=== PATIENT | male | born 1940 | race Caucasian/White ===

== ENCOUNTER → 2018-01-11 08:56 | Outpatient (CLI) | payer MEDICARE, OTHER, SELFPAY ==
[2018-01-11 10:15] LABS: Absolute Lymphocyte Count 1.61 X10^3/ul (0.83-4.51); Absolute Neutrophil Count 2.1 X10^3/uL (2.0-7.7); Basophil# 0.02 X10^3/uL; Basophil% 0.4 % (0-1); Color, Urine Yellow (Yellow); Eosinophil# 0.16 X10^3/uL; Eosinophils% 3.5 % (0-5); Glucose, Dipstick Normal (Normal); Hematocrit 40.1 % (40-54); Hemoglobin 14.1 g/dl (13.0-16.5); Ketone-Dipstick Negative (Negative); Leukocyte Esterase-Dipstick 100 /ul (Negative); Lymphocyte # 1.61 X10^3/ul (4.0); Mean Corp Hgb Conc 35.2 g/gl (32-36); Mean Corpuscular Volume 99.5 fL (80-94); Mean Platelet Vol. 10.2 fl (6.2-12.0); Monocyte# 0.68 X10^3/uL; Monocyte% 14.8 % (0-10); Neutrophil # 2.13 X10^3/uL (2.7-7.7); Neutrophil % 46.3 % (47-70); Nitrite-Dipstick Negative (Negative); Occult Blood-Urine Negative /ul (Negative); Platelet Count 198 K/mm3 (150-450); Protein-Dipstick Negative (Negative); RBC Distribution Width CV 13.3 % (11.6-14.6); RBC Distribution Width SD 48.1 fl (35.1-43.9); Red Blood Count 4.03 M/mm3 (4.6-6.2); Specific Gravity, Urine 1.015 (1.002-1.030); Urine Bilirubin Dipstick Negative (Negative); Urine Clarity Clear (Clear); Urine Urobilinogen Normal (Normal); White Blood Count 4.6 K/mm3 (4.4-11.0)
[2018-01-11 10:29] LABS: POSITIVE COUNT NO; POSITIVE DIFFERENTIAL NO; POSITIVE MORPHOLOGY NO
[2018-01-11 10:30] LABS: Hemoglobin A1c 5.7 % (4.2-6.3)
[2018-01-11 10:34] LABS: ALB/GLOB Ratio 0.9 RATIO (0.9-2.4); AST(SGOT) 25 U/L (15-37); Alanine Aminotransfer ALT/SGPT 39 U/L (16-61); Albumin, Serum 3.6 g/dL (3.2-5.0); Alkaline Phosphatase 109 U/L (45-117); Anion Gap 6 (5-15); BUN 23 mg/dL (7-18); BUN/Creat Ratio 20.7 RATIO (10-20); Calcium,Total 8.9 mg/dL (8.5-10.1); Chloride 108 mmol/L (98-107); Cholesterol 156 mg/dL (200); Creatinine, Serum 1.11 mg/dL (0.70-1.30); EST Glomerular Filtration Rate 69 mL/min (>60); Est Glom Filt Rate - Afr Amer 83 mL/min (>60); Globulin 3.9 g/dL (2.2-4.2); Glucose 101 mg/dL (74-106); High Density Lipoprotein 38 mg/dL; PSA,Total - Annual Screen 1.13 ng/mL (0.00-4.00); Potassium 3.9 mmol/L (3.5-5.1); Protein, Total 7.5 g/dL (6.4-8.2); Sodium Level 139 mmol/L (136-145); Triglycerides 206 mg/dL; Very Low Density Lipoprotein 41 mg/dL (5-40)
== END ==
DX: Z00.00 Encounter for general adult medical examination without abnormal findings (principal); Z12.5 Encounter for screening for malignant neoplasm of prostate; I10 Essential (primary) hypertension; E78.00 Pure hypercholesterolemia, unspecified; R73.02 Impaired glucose tolerance (oral)
CPT/HCPCS: 36415; 80053; 80061; 81002; 83036; 84153; 85025; G0103

== ENCOUNTER → 2018-04-15 07:01 | Outpatient (CLI) | payer MEDICARE, OTHER, SELFPAY ==
[2018-04-15 10:49] LABS: AST(SGOT) 25 U/L (15-37); Alanine Aminotransfer ALT/SGPT 41 U/L (16-61); Albumin, Serum 3.6 g/dL (3.2-5.0); Alkaline Phosphatase 103 U/L (45-117); Bilirubin, Direct 0.15 mg/dL (0.00-0.30); Cholesterol 157 mg/dL (200); Globulin 4.4 g/dL (2.2-4.2); High Density Lipoprotein 48 mg/dL; Triglycerides 105 mg/dL; Uric Acid 7.5 mg/dL (3.5-7.2); Very Low Density Lipoprotein 21 mg/dL (5-40)
[2018-04-15 11:01] LABS: Hemoglobin A1c 5.5 % (4.2-6.3)
== END ==
PROVIDERS: Visit Provider Family Medicine
DX: E78.00 Pure hypercholesterolemia, unspecified (principal); M10.9 Gout, unspecified; R73.02 Impaired glucose tolerance (oral)
CPT/HCPCS: 36415; 80061; 80076; 83036; 84550

== ENCOUNTER → 2018-06-20 07:30 | Outpatient (CLI) | payer MEDICARE, OTHER, SELFPAY ==
--- NOTE | 2018-06-20 07:33 | ECHOD_ITS ---
Reason For Study: dyspnea/SOB Procedure This was a 2D Doppler, Color Flow transthoracic echocardiogram. Exam performed in department. Left Ventricle Mild concentric left ventricular hypertrophy. The estimated ejection fraction is 65 %. Normal diastology for age. Right Ventricle Normal size and thickness. Normal systolic function. Atria The left atrium is moderately enlarged. Normal right atrium. Normal atrial septum. Mitral Valve The mitral valve is structurally normal. No prolapse or stenosis seen. Trivial mitral valve insufficiency. Tricuspid Valve Normal tricuspid valve. Trivial tricuspid valve insufficiency. Right ventricular systolic pressure estimated to be 37 mmHg. Aortic Valve Trisinus/trileaflet aortic valve. Mild (1+) aortic valve insufficiency. Pulmonic Valve Normal pulmonic valve. Trivial pulmonic valve insufficiency. Great Vessels Normal aortic root. Mild atherosclerosis of the aortic arch. Normal inferior vena cava. Inferior vena cava collapse with sniff. Pericardium/Pleural No pericardial effusion. MMode/2D Measurements & Calculations LVIDd: 5.3 cm IVSd: 1.4 cm Ao root diam: 3.1 cm LVIDs: 3.4 cm LVPWd: 1.4 cm LA dimension: 4.8 cm RVDd: 2.9 cm FS: 35.3 % LAV(MOD-bp): 97.9 ml LA A4 area: 27.1 cm2 RA A4 area: 13.9 cm2 LAV(MOD-bp) Indexed: 44.3 ml/m2 LAV(MOD-sp2): 97.5 ml LAV(MOD-sp4): 96.2 ml Doppler Measurements & Calculations MV E max luis: 103.5 cm/sec Lat Peak E' Luis: 9.2 cm/sec Med Peak E' Luis: 7.7 cm/sec MV A max luis: 89.6 cm/sec E/E' lat: 11.2 E/E' med: 13.5 MV E/A: 1.2 Ao V2 max: 134.8 cm/sec AI max luis: 438.7 cm/sec LV V1 max: 99.4 cm/sec Ao max P.3 mmHg AI max P.0 mmHg LV V1 max P.9 mmHg AI dec slope: 193.4 cm/sec2 AI P1/2t: 664.3 msec PA V2 max: 140.8 cm/sec PI end-d luis: 92.5 cm/sec TR max luis: 262.0 cm/sec TR max P.6 mmHg Interpretation Summary The estimated ejection fraction is 65 %. Normal diastology for age. The left atrium is moderately enlarged. Trivial mitral valve insufficiency. Trivial tricuspid valve insufficiency. Right ventricular systolic pressure estimated to be 37 mmHg. Mild (1+) aortic valve insufficiency. Comapred to echo report dated 08m no appreciable changes noted. Ordering Physician: Amari Forman Referring Physician: Anderson Izaguirre Performed By: Charlee Zelaya, LYUDMILA, RVT
== END ==
PROVIDERS: Visit Provider Internal Medicine Cardiovascular Disease
DX: I34.0 Nonrheumatic mitral (valve) insufficiency (principal); I10 Essential (primary) hypertension; E78.5 Hyperlipidemia, unspecified; R06.02 Shortness of breath
CPT/HCPCS: 93306

== ENCOUNTER → 2018-06-22 09:34 | Outpatient (CLI) | payer MEDICARE, OTHER, SELFPAY ==
--- NOTE | 2018-06-22 09:35 | STE_ITS ---
Reason For Study: DYSPNEA/ SOB Stress Results Protocol: Lance Protocol Maximum Predicted HR: 145 bpm Target HR: 123 bpm% Max imum Predicted HR: 88 % DurationHeart Rate Stage (mm:ss) (bpm) BPCom ment BASELINE 72 158/70 STAGE 1 3:00 93 142/62 STAGE 2 3:00 11 2 160/70 STAGE 3 2:00 12 7 / 5CC DEFINITY TOTAL GIVEN FOR TEST RECOVERY 96 142/70 Stress Duration: 8:00 mm:ss Maximum Stress HR: 127 bpm Baseline Echocardiogram Findings The estimated ejection fraction is 65 %. Stress Echo Wall motion Data Resting WMIntermediate WMStress WM Resting Wall Motion Wall Motion Stress No regional wall motion No regional wall motion abnormalities noted. abnormalities noted. EKG Data The baseline ECG demonstrates normal sinus rhythm with at rate of _ beats per minute. The patient exercised according to the regular Lance protocol for a total duration of 8:00. The maximum heart rate attained was 141 beats per minute. This was 97% of maximum predicted heart rate. The patient exercised into stage 3 of the Lance protocol. During stress, there were no ST or T wave changes noted to suggest ischemia. No clinical angina was noted. Interpretation Summary The estimated ejection fraction is 65 %. Normal, adequate, treadmill echocardiogram. Negative for ischemia by EKG and echocardiographic criteria. No anginal symptoms noted. No arrhythmias noted. Appropriate blood pressure response to exercise. Average exercise capacity for age. Test terminated due to the attainment of target heart rate and dyspnea. Final LVEF of 75%. Decreased sensitivity due to poor echo windows requiring Definity contrast enhancement. No complications. Ordering Physician: Amari Forman Referring Physician: Amari Forman Performed By: Shaina Bell RDCS
== END ==
PROVIDERS: Visit Provider Internal Medicine Cardiovascular Disease
DX: I34.0 Nonrheumatic mitral (valve) insufficiency (principal); I10 Essential (primary) hypertension; E78.5 Hyperlipidemia, unspecified; R06.00 Dyspnea, unspecified
CPT/HCPCS: 93017; 93350; Q9957; A4216; C8928

== ENCOUNTER → 2018-06-24 09:46 | Outpatient (CLI) | payer MEDICARE, OTHER, SELFPAY ==
--- NOTE | 2018-06-24 18:02 | LEAS ---
Arterial Study - Arterial Study Arterial Study: Bilateral lower extremity noninvasive arterial exam with exercise Right lower extremity PT and DP ankle-brachial indices at rest are 1.33 and 1.26 respectively. The Doppler waveforms are triphasic. The volume pulse recordings demonstrate normal amplification the calf and the ankle and digital waveforms are well maintained. With exercise the right MAHSA goes from resting 1.33 to media after exercise at 1.37 which is normal Left lower extremity The left PT and DP ankle-brachial index at rest are 1.33 and 1.39 respectively. The Doppler waveforms are both triphasic. Volume pulse recordings demonstrate normal amplification at the calf and the ankle and digital waveforms are well maintained. With exercise left MAHSA goes from resting 1.392 media after exercise at 1.37 which is normal. Impression Normal bilateral lower extremity noninvasive arterial exam with exercise. Vasquez Carter M.D., F.A.C.S.
== END ==
PROVIDERS: Visit Provider Internal Medicine Cardiovascular Disease
DX: I77.9 Disorder of arteries and arterioles, unspecified (principal); I73.9 Peripheral vascular disease, unspecified
CPT/HCPCS: 93924

== ENCOUNTER → 2019-01-26 07:42 | Outpatient (CLI) | payer MEDICARE, OTHER, SELFPAY ==
[2019-01-26 10:04] LABS: Color, Urine Yellow (Yellow); Glucose, Dipstick Normal (Normal); Ketone-Dipstick Negative (Negative); Leukocyte Esterase-Dipstick Negative /ul (Negative); Nitrite-Dipstick Negative (Negative); Occult Blood-Urine Negative /ul (Negative); Protein-Dipstick Negative (Negative); Specific Gravity, Urine 1.015 (1.002-1.030); Urine Bilirubin Dipstick Negative (Negative); Urine Clarity Clear (Clear); Urine Urobilinogen Normal (Normal)
[2019-01-26 10:06] LABS: Absolute Lymphocyte Count 1.22 X10^3/ul (0.83-4.51); Absolute Neutrophil Count 2.8 X10^3/uL (2.0-7.7); Basophil# 0.03 X10^3/uL; Basophil% 0.6 % (0-1); Hematocrit 40.6 % (40-54); Hemoglobin 14.4 g/dl (13.0-16.5); Lymphocyte # 1.22 X10^3/ul (4.0); Lymphocyte % 24.4 % (19-41); Mean Corp Hgb Conc 35.5 g/gl (32-36); Mean Corpuscular Hgb 35.9 pg (27.0-32.0); Mean Corpuscular Volume 101.2 fL (80-94); Mean Platelet Vol. 10.6 fl (6.2-12.0); Monocyte# 0.71 X10^3/uL; Monocyte% 14.2 % (0-10); Neutrophil # 2.82 X10^3/uL (2.7-7.7); Neutrophil % 56.6 % (47-70); Platelet Count 194 K/mm3 (150-450); RBC Distribution Width CV 13.6 % (11.6-14.6); RBC Distribution Width SD 50.5 fl (35.1-43.9); Red Blood Count 4.01 M/mm3 (4.6-6.2)
[2019-01-26 10:13] LABS: POSITIVE COUNT NO; POSITIVE DIFFERENTIAL NO; POSITIVE MORPHOLOGY NO
[2019-01-26 10:21] LABS: ALB/GLOB Ratio 0.9 RATIO (0.9-2.4); AST(SGOT) 23 U/L (15-37); Alanine Aminotransfer ALT/SGPT 38 U/L (16-61); Albumin, Serum 3.6 g/dL (3.2-5.0); Alkaline Phosphatase 106 U/L (45-117); Anion Gap 6 (5-15); BUN 19 mg/dL (7-18); BUN/Creat Ratio 17.8 RATIO (10-20); Calcium,Total 8.7 mg/dL (8.5-10.1); Chloride 107 mmol/L (98-107); Cholesterol 168 mg/dL (200); Creatinine, Serum 1.07 mg/dL (0.70-1.30); EST Glomerular Filtration Rate 71 mL/min (>60); Est Glom Filt Rate - Afr Amer 86 mL/min (>60); Globulin 3.9 g/dL (2.2-4.2); Glucose 97 mg/dL (74-106); High Density Lipoprotein 44 mg/dL; PSA,Total - Annual Screen 1.15 ng/mL (0.00-4.00); Potassium 3.7 mmol/L (3.5-5.1); Protein, Total 7.5 g/dL (6.4-8.2); Sodium Level 139 mmol/L (136-145); Triglycerides 182 mg/dL; Uric Acid 5.4 mg/dL (3.5-7.2); Very Low Density Lipoprotein 36 mg/dL (5-40)
[2019-01-26 10:25] LABS: Hemoglobin A1c 5.4 % (4.2-6.3)
== END ==
PROVIDERS: Referring Provider Family Medicine; Visit Provider Family Medicine
DX: Z00.00 Encounter for general adult medical examination without abnormal findings (principal); Z12.5 Encounter for screening for malignant neoplasm of prostate; M10.9 Gout, unspecified; R73.02 Impaired glucose tolerance (oral); E78.5 Hyperlipidemia, unspecified; I10 Essential (primary) hypertension
CPT/HCPCS: 36415; 80053; 80061; 81002; 83036; 84153; 84550; 85025; G0103

== ENCOUNTER → 2019-10-25 07:30 | Outpatient (CLI) | payer MEDICARE, OTHER, SELFPAY ==
[2019-09-11 10:33] VITALS: BMI 32.8
[2019-10-25 10:48] LABS: AST(SGOT) 22 U/L (15-37); Alanine Aminotransfer ALT/SGPT 35 U/L (16-61); Albumin, Serum 3.5 g/dL (3.2-5.0); Alkaline Phosphatase 95 U/L (45-117); Anion Gap 7 (5-15); BUN 21 mg/dL (7-18); BUN/Creat Ratio 21.7 RATIO (10-20); Calcium,Total 9.1 mg/dL (8.5-10.1); Chloride 107 mmol/L (98-107); Cholesterol 174 mg/dL (200); Creatinine, Serum 0.97 mg/dL (0.70-1.30); EST Glomerular Filtration Rate 80 mL/min (>60); Est Glom Filt Rate - Afr Amer 97 mL/min (>60); Globulin 3.6 g/dL (2.2-4.2); Glucose 98 mg/dL (74-106); High Density Lipoprotein 49 mg/dL; Potassium 3.7 mmol/L (3.5-5.1); Protein, Total 7.1 g/dL (6.4-8.2); Sodium Level 142 mmol/L (136-145); Triglycerides 192 mg/dL; Uric Acid 5.7 mg/dL (3.5-7.2); Very Low Density Lipoprotein 38 mg/dL (5-40)
== END ==
PROVIDERS: PCP Family Medicine; Referring Provider Family Medicine; Visit Provider Family Medicine
DX: Z00.00 Encounter for general adult medical examination without abnormal findings (principal); E78.5 Hyperlipidemia, unspecified; I10 Essential (primary) hypertension; M10.9 Gout, unspecified
CPT/HCPCS: 36415; 80053; 80061; 84550

== ENCOUNTER → 2020-02-29 07:12 | Outpatient (CLI) | payer MEDICARE, OTHER, SELFPAY ==
[2019-09-11 10:33] VITALS: BMI 32.8
[2020-02-29 09:46] LABS: Absolute Lymphocyte Count 1.76 X10^3/uL (0.83-4.51); Absolute Neutrophil Count 2.1 X10^3/uL (2.0-7.7); Basophil# 0.04 X10^3/uL; Basophil% 0.8 % (0-1); Eosinophil# 0.21 X10^3/uL; Eosinophils% 4.4 % (0-5); Hematocrit 41.8 % (40-54); Hemoglobin 14.2 g/dL (13.0-16.5); Lymphocyte # 1.76 X10^3/ul (4.0); Mean Corpuscular Hgb 34.5 pg (27.0-32.0); Mean Corpuscular Volume 101.5 fL (80-94); Mean Platelet Vol. 9.9 fl (6.2-12.0); Monocyte# 0.68 X10^3/uL; Monocyte% 14.3 % (0-10); NRBC Flagged by Analyzer 0 % (0-5); Neutrophil # 2.06 X10^3/uL (2.7-7.7); Neutrophil % 43.3 % (47-70); Platelet Count 199 K/mm3 (150-450); RBC Distribution Width CV 13.2 % (11.6-14.6); RBC Distribution Width SD 49.2 fl (35.1-43.9); Red Blood Count 4.12 M/mm3 (4.6-6.2); White Blood Count 4.8 K/mm3 (4.4-11.0)
[2020-02-29 10:02] LABS: AST(SGOT) 25 U/L (15-37); Alanine Aminotransfer ALT/SGPT 33 U/L (16-61); Albumin, Serum 3.8 g/dL (3.2-5.0); Alkaline Phosphatase 98 U/L (45-117); Anion Gap 6 (5-15); BUN 34 mg/dL (7-18); BUN/Creat Ratio 29.6 RATIO (10-20); Calcium,Total 9.1 mg/dL (8.5-10.1); Chloride 104 mmol/L (98-107); Cholesterol 158 mg/dL (200); Creatinine, Serum 1.15 mg/dL (0.70-1.30); EST Glomerular Filtration Rate 65 mL/min (>60); Est Glom Filt Rate - Afr Amer 79 mL/min (>60); Globulin 3.7 g/dL (2.2-4.2); Glucose 95 mg/dL (74-106); High Density Lipoprotein 42 mg/dL; PSA,Total - Annual Screen 1.15 ng/mL (0.00-4.00); Protein, Total 7.5 g/dL (6.4-8.2); Sodium Level 138 mmol/L (136-145); Triglycerides 170 mg/dL; Uric Acid 5.7 mg/dL (3.5-7.2); Very Low Density Lipoprotein 34 mg/dL (5-40)
[2020-02-29 10:14] LABS: Hemoglobin A1c 5.9 % (4.2-6.3)
== END ==
PROVIDERS: PCP Family Medicine; Referring Provider Family Medicine; Visit Provider Family Medicine
DX: Z00.00 Encounter for general adult medical examination without abnormal findings (principal); M10.9 Gout, unspecified; E78.5 Hyperlipidemia, unspecified; I10 Essential (primary) hypertension; R73.02 Impaired glucose tolerance (oral); Z12.5 Encounter for screening for malignant neoplasm of prostate
CPT/HCPCS: 36415; 80053; 80061; 83036; 84153; 84550; 85025; G0103

== ENCOUNTER → 2020-03-29 14:46 | Outpatient (CLI) | payer MEDICARE, OTHER, SELFPAY ==
[2020-03-28 10:36] VITALS: BMI 32.3
[2020-03-29 17:42] LABS: Vitamin B12 724 pg/mL (211-911)
[2020-04-01 16:08] LABS: Free Kappa Light Chains 26.1 mg/L (3.3-19.4); Free Lambda Light Chains 19.8 mg/L (5.7-26.3)
== END ==
PROVIDERS: PCP Family Medicine; Referring Provider Psychiatry & Neurology Neurology; Visit Provider Psychiatry & Neurology Neurology
DX: G62.9 Polyneuropathy, unspecified (principal); R60.0 Localized edema
CPT/HCPCS: 36415; 82607; 82746; 83883; 84443

== ENCOUNTER → 2020-04-04 13:36 | Outpatient (CLI) | payer MEDICARE, OTHER, SELFPAY ==
[2020-03-11 08:32] VITALS: BMI 32.3
[2020-03-28 10:36] VITALS: BMI 32.3
--- NOTE | 2020-04-04 13:37 | ART_ITS ---
Reason For Study: Claudication Procedure A bilateral lower extremity continuous wave Doppler with analog waveform analysis and ankle brachial indexes. Left Segmental Pressures Left brachial= 136mmHg. Left posterior tibial artery = 188mmHg. Left dorsalis pedis artery = 178mmHg. Left digit = 142 mmHg. The left dorsalis pedis waveforms are triphasic. The left posterior tibial artery waveforms are triphasic. Right Segmental Pressures Right brachial= 133mmHg. Right posterior tibial artery = 192mmHg. Right dorsalis pedis artery = 189mmHg. Right digit = 135 mmHg. The right dorsalis pedis waveforms are triphasic. The right posterior tibial artery waveforms are triphasic. Indices The right ankle brachial index by the dorsalis pedis is 1.39. The right ankle brachial index by the posterior tibial artery is 1.41. The right digital-brachial index is 0.99. The left ankle brachial index by the dorsalis pedis is 1.31. The left ankle brachial index by the posterior tibial artery is 1.38. The left digital-brachial index is 1.04. Interpretation Summary Resting ankle-brachial indices appear bilaterally normal. Bilateral PT and DP Doppler waveforms are triphasic and normal Ordering Physician: Amari Forman Referring Physician: Anderson Izaguirre Performed By: Unique Gray RVT
--- NOTE | 2020-04-04 13:37 | ECHOD_ITS ---
Reason For Study: Valve replacement eval Procedure This was a 2D Doppler, Color Flow transthoracic echocardiogram. Exam performed in department. Left Ventricle Normal size and thickness. The estimated ejection fraction is 65 %. Stage 1 diastolic dysfunction. No regional wall motion abnormalities noted. Right Ventricle Normal size and thickness. Normal systolic function. Atria The left atrium is mildly enlarged. Normal right atrium. Normal atrial septum. Mitral Valve The mitral valve is structurally normal. No prolapse or stenosis seen. Trivial mitral valve insufficiency. Tricuspid Valve Normal tricuspid valve. Trivial tricuspid valve insufficiency. Right ventricular systolic pressure estimated to be 34 mmHg. Aortic Valve Trisinus/trileaflet aortic valve. Mild diffuse aortic valve thickening. Trivial aortic valve insufficiency. Pulmonic Valve Normal pulmonic valve. Trivial pulmonic valve insufficiency. Great Vessels Normal aortic root. Normal arch. Normal inferior vena cava. Inferior vena cava collapse with sniff. Pericardium/Pleural No pericardial effusion. MMode/2D Measurements & Calculations LVIDd: 4.4 cm IVSd: 1.6 cm Ao root diam: 3.5 cm LVIDs: 2.4 cm LVPWd: 0.99 cm RVDd: 3.4 cm FS: 46.3 % LAV(MOD-bp): 58.7 ml LA A4 area: 21.1 cm2 LA dimension(2D): 4.5 cm LAV(MOD-bp) Indexed: 27.0 ml/m2 LAV(MOD-sp2): 54.9 ml LAV(MOD-sp4): 60.4 ml RA A4 area: 16.0 cm2 Doppler Measurements & Calculations MV E max luis: 88.0 cm/sec Lat Peak E' Luis: 9.8 cm/sec Med Peak E' Luis: 6.7 cm/sec MV A max luis: 96.4 cm/sec E/E' lat: 9.0 E/E' med: 13.1 MV E/A: 0.91 Ao V2 max: 164.4 cm/sec AI max luis: 454.1 cm/sec LV V1 max: 121.2 cm/sec Ao max P.8 mmHg AI max P.7 mmHg LV V1 max P.9 mmHg AI dec slope: 193.0 cm/sec2 AI P1/2t: 689.1 msec PA V2 max: 143.3 cm/sec TR max luis: 259.1 cm/sec TR max P.9 mmHg Interpretation Summary The estimated ejection fraction is 65 %. Stage 1 diastolic dysfunction. The left atrium is mildly enlarged. Trivial mitral valve insufficiency. Trivial tricuspid valve insufficiency. Right ventricular systolic pressure estimated to be 34 mmHg. Trivial aortic valve insufficiency. Compared to echo report dated 06/20/2018, LV function has remained the same, RV pressure has improved no appreciable changes noted. Ordering Physician: Amari Forman Referring Physician: Andrzej Izaguirre M.D. Performed By: Barbara Nguyen RDCS
== END ==
PROVIDERS: PCP Family Medicine; Referring Provider Internal Medicine Cardiovascular Disease; Visit Provider Internal Medicine Cardiovascular Disease
DX: I73.9 Peripheral vascular disease, unspecified (principal); R60.0 Localized edema
CPT/HCPCS: 93306; 93922

== ENCOUNTER → 2020-04-17 12:28 | Outpatient (CLI) | payer MEDICARE, OTHER, SELFPAY ==
[2020-03-11 08:32] VITALS: BMI 32.3
[2020-03-28 10:36] VITALS: BMI 32.3
--- NOTE | 2020-04-17 12:29 | STEWCON_ITS ---
Reason For Study: MVP Stress Results Protocol: Lance Protocol WITH DEFINITY Maximum Predicted HR: 143 bpm Target HR: 122 bpm % Maximum Predicted HR: 77 % DurationHeart Rate Stage (mm:ss) (bpm) BP Comment BASELINE 69 140/70 STAGE 1 3:00 85 138/62 STAGE 2 3:00 93 142/62 STAGE 3 3:00 110 144/605 CC DEFINITY RECOVERY 93 148/62 Stress Duration: 9:00 mm:ss Maximum Stress HR: 110 bpm Baseline Echocardiogram Findings The estimated ejection fraction is 65 %. Stress Echo Wall motion Data Resting WM Intermediate WM Stress WM Resting Wall Motion Wall Motion Stress No regional wall motion No regional wall motion abnormalities noted. abnormalities noted. EKG Data The baseline ECG displays normal sinus rhythm. The patient exercised according to the regular Lance protocol for a total duration of 9:00. The maximum heart rate attained was 144 beats per minute. This was 100% of maximum predicted heart rate. The patient exercised into stage 4 of the Lance protocol. During stress, there were no ST or T wave changes noted to suggest ischemia. No arrhythmias noted. No clinical angina was noted. Interpretation Summary The estimated ejection fraction is 65 %. Normal, adequate, treadmill echocardiogram. Negative for ischemia by EKG and echocardiographic criteria. No anginal symptoms noted. No arrhythmias noted. Appropriate blood pressure response to exercise. Average exercise capacity for age. Test terminated due to dyspnea and target heart rate achieved. Final LVEF is 75%. Decrease sensitivity due to poor echo windows requiring Definity agent. No complications. The study was technically difficult. Contrast injection was performed. Ordering Physician: Amari Forman MD Referring Physician: Amari Forman Performed By: Iris Mathew, RDCS, RVT
== END ==
PROVIDERS: PCP Family Medicine; Referring Provider Internal Medicine Cardiovascular Disease; Visit Provider Internal Medicine Cardiovascular Disease
DX: I34.0 Nonrheumatic mitral (valve) insufficiency (principal); I10 Essential (primary) hypertension; R60.0 Localized edema; I73.9 Peripheral vascular disease, unspecified; R06.09 Other forms of dyspnea
CPT/HCPCS: 93017; 93350; Q9957; A4216; C8928

== ENCOUNTER → 2020-06-03 10:09 | Outpatient (CLI) | payer MEDICARE, OTHER, SELFPAY ==
[2020-05-30 13:56] VITALS: BMI 32.3
--- NOTE | 2020-06-03 10:11 | RAD_ITS ---
STUDY: X-RAY - PELVIS AND BILATERAL HIPS REASON FOR EXAM: Male, 79 years old. Patient complains of lower leg pain at night, hip pain TECHNIQUE: AP view of the pelvis.? 2 views of the right hip, and 2 views of the left hip were obtained. COMPARISON: None. FINDINGS: There is a non-specific bowel gas pattern. There are multiple calcified phleboliths. Normal bilateral iliac wings, sacroiliac joints and visualized sacrum. Normal bilateral superior and inferior pubic rami. Normal pubic symphysis. Normal bilateral ischial tuberosities. Normal visualized right femoral head. There is osteoarthritic spur formation of the right acetabular rim. There is mild articular joint space narrowing of the right hip. Normal visualized left femoral head. There is osteoarthritic spur formation of the left acetabular rim. There is mild articular joint space narrowing of the left hip. RAD/Hips B/L min 2 views w/ Pelvis IMPRESSION: Mild degree of degenerative changes of both hip joints. Electronically Signed: Yomi Bosch, at 10:39 EDT , Service support ,
--- NOTE | 2020-06-03 10:15 | RAD_ITS ---
STUDY: X-RAY - LUMBAR SPINE REASON FOR EXAM: Male, 79 years old. Patient complains of lower leg pain at night, hip pain TECHNIQUE: 3 view(s) of the lumbar spine were obtained. COMPARISON: Comparison is made with prior examination dated January 01, 2016. FINDINGS: Normal lumbar lordosis. There is no substantial scoliosis. Grade 1 anterior listhesis of L5 on S1. There is multilevel endplate spondylosis of the lumbar vertebrae. There is multi-level degenerative disc disease with multi-level disc space narrowing. Facet joint osteoarthritis. There is atherosclerotic calcification of the abdominal aorta without a demonstrated aneurysm. RAD/Lumbar Spine 2 or 3 Views IMPRESSION: Degenerative changes of the spine, as detailed above. Electronically Signed: Yomi Bosch, at 10:40 EDT , Service support ,
[2020-06-05 14:08] LABS: Albumin 3.6 g/dL (2.9-4.4); Alpha-1-Globulins 0.2 g/dL (0.0-0.4); Alpha-2-Globulins 0.6 g/dL (0.4-1.0); Gamma Globulin 1.2 g/dL (0.4-1.8); Immunoglobulin A 182 mg/dL (61-437); Immunoglobulin G 1138 mg/dL (603-1613); Immunoglobulin M 151 mg/dL (15-143); PROEL- TOTAL PROTEIN 6.7 g/dL (6.0-8.5)
== END ==
PROVIDERS: PCP Family Medicine; Referring Provider Psychiatry & Neurology Neurology; Visit Provider Psychiatry & Neurology Neurology
DX: G62.9 Polyneuropathy, unspecified (principal); M25.559 Pain in unspecified hip; M54.5 Low back pain
CPT/HCPCS: 36415; 72100; 73521; 82784; 84165; 86334; 86335

== ENCOUNTER → 2020-06-17 13:24 | Outpatient (CLI) | payer MEDICARE, OTHER, SELFPAY ==
[2020-03-28 10:36] VITALS: BMI 32.3
[2020-05-30 13:56] VITALS: BMI 32.3
--- NOTE | 2020-06-17 16:48 | NEURO ---
NCS and/or EMG Patient Report Ordering Doctor: Anderson Diaz DATE OF SERVICE: 06/17/20 Indication: History of intermittent aching pain involving the pretibial region of both lower extremities. The patient notes that this is only present at night when he is laying down to go to sleep. Each morning he wakes with the pain, though this improves with activity over the course of an hour or so. He reports sciatica, but is unsure if this is related to his current problems. He denies any fixed weakness or sensory loss in the lower extremities. Evaluate for lumbosacral radiculopathy. Findings: Nerve conduction studies were performed of both lower extremities. The right common peroneal motor recording the extensor digitorum brevis demonstrated normal amplitude, latency and conduction velocity. The right tibial motor response recording the abductor hallucis demonstrated a normal amplitude, latency and conduction velocity. The right sural sensory response revealed a normal amplitude, peak latency and conduction velocity. The right superficial peroneal response revealed a normal amplitude, peak latency and conduction velocity. The left common peroneal motor study recording the extensor digitorum brevis demonstrated normal amplitude, latency and conduction velocity. The left tibial motor response recording the abductor hallucis demonstrated a normal amplitude, latency and conduction velocity. The left sural sensory response revealed a normal amplitude, peak latency and conduction velocity. The left superficial peroneal response revealed a normal amplitude, peak latency and conduction velocity. Needle EMG of the right lower extremity and paraspinal muscles was performed. No muscle, including the paraspinals, revealed any active denervation. Motor units in the right tibialis anterior, extensor houses longus, and tensor fascia radha muscles were large in amplitude, long duration and slightly polyphasic. The right vastus medialis and medial gastrocnemius revealed normal motor unit morphology, activation and recruitment patterns. Needle EMG of the left lower extremity and paraspinal muscles was performed. No active denervation was present in any muscle examined. Spontaneous activity could not be assessed in the left paraspinals due to incomplete relaxation. The left tibialis anterior, extensor houses longus revealed motor units which were large in amplitude, and long in duration. The left vastus medialis and medial gastrocnemius were normal in motor unit morphology, activation and recruitment patterns. Impression: This is an abnormal study. There is electrophysiologic evidence compatible with bilateral, chronic, L5 radiculopathies. There is no active denervation to suggest ongoing axonal loss. In addition, there is no electrophysiologic evidence of a superimposed large fiber peripheral polyneuropathy or peroneal neuropathy in either lower extremity. Ronnie Vogel D.O.
== END ==
PROVIDERS: PCP Family Medicine; Referring Provider Psychiatry & Neurology Neurology; Visit Provider Psychiatry & Neurology Neurology
DX: G62.9 Polyneuropathy, unspecified (principal); M79.662 Pain in left lower leg; M79.661 Pain in right lower leg
CPT/HCPCS: 95885; 95886; 95910

== ENCOUNTER → 2020-10-31 07:31 | Outpatient (CLI) | payer MEDICARE, OTHER, SELFPAY ==
[2020-09-23 13:04] VITALS: BMI 34.2
[2020-10-31 10:36] LABS: AST(SGOT) 22 U/L (15-37); Alanine Aminotransfer ALT/SGPT 45 U/L (16-61); Albumin, Serum 3.8 g/dL (3.2-5.0); Alkaline Phosphatase 107 U/L (45-117); Anion Gap 6 (5-15); BUN 24 mg/dL (7-18); BUN/Creat Ratio 22.9 RATIO (10-20); Calcium,Total 9.2 mg/dL (8.5-10.1); Chloride 108 mmol/L (98-107); Cholesterol 147 mg/dL (200); Creatinine, Serum 1.05 mg/dL (0.70-1.30); EST Glomerular Filtration Rate 73 mL/min (>60); Est Glom Filt Rate - Afr Amer 88 mL/min (>60); Globulin 3.8 g/dL (2.2-4.2); Glucose 104 mg/dL (74-106); High Density Lipoprotein 41 mg/dL; Protein, Total 7.6 g/dL (6.4-8.2); Sodium Level 142 mmol/L (136-145); Triglycerides 191 mg/dL; Very Low Density Lipoprotein 38 mg/dL (5-40)
[2020-10-31 10:58] LABS: Hemoglobin A1c 5.5 % (3.8-5.6)
== END ==
PROVIDERS: PCP Family Medicine; Referring Provider Family Medicine; Visit Provider Family Medicine
DX: E78.5 Hyperlipidemia, unspecified (principal); R73.02 Impaired glucose tolerance (oral); I10 Essential (primary) hypertension
CPT/HCPCS: 36415; 80053; 80061; 83036

== ENCOUNTER 2021-01-20 13:16 | Outpatient (RCR) | payer MEDICARE, OTHER, SELFPAY ==
[2020-12-10 13:29] VITALS: BMI 32.3
== END 2021-01-20 23:59 ==
LOC: IMMUN 13:16
PROVIDERS: PCP Family Medicine; Visit Provider Family Medicine
DX: Z23 Encounter for immunization (principal)
CPT/HCPCS: 0011A; 0012A

== ENCOUNTER → 2021-01-29 10:56 | Outpatient (CLI) | payer MEDICARE, OTHER, SELFPAY ==
[2020-12-10 13:29] VITALS: BMI 32.3
--- NOTE | 2021-01-29 10:57 | MRI_ITS ---
STUDY: MRI LUMBAR SPINE WITHOUT CONTRAST REASON FOR EXAM: Male, 80 years old. Lumbar Radiculopathy TECHNIQUE: Standardized fat and water weighted pulse sequences were obtained in the sagittal and axial planes. COMPARISON: X-ray 06/03/2020 FINDINGS: T12-L1: Normal endplates. Normal disc height, hydration and morphology. Normal bilateral facet joints. Normal central canal and bilateral lateral recesses. Normal bilateral intervertebral neural foramina. Normal lumbar lordosis. Mild levoscoliosis centered at L3. Normal conus medullaris that terminates at the L1/L2. L1-2: Normal endplates. Normal disc height, hydration and morphology. Normal bilateral facet joints. Normal central canal and bilateral lateral recesses. Normal bilateral intervertebral neural foramina. L2-3: Mild bilateral facet hypertrophy with fluid in the facet joints consistent with instability. Mild ligament flavum hypertrophy. Mild bilobed disc protrusion produces a moderate spinal stenosis with moderate bilateral lateral recess stenosis with abutment of the L3 nerve roots bilaterally and mild bilateral neural foraminal stenosis. L3-4: Moderate bilateral facet hypertrophy and ligament flavum hypertrophy. 2 mm retrolisthesis of L3 on L4 with a moderate bilobed disc protrusion produces moderate spinal stenosis with moderate bilateral lateral recess stenosis with abutment of the L for nerve roots bilaterally and moderate bilateral neural foraminal stenosis. L4-5: Moderate right facet hypertrophy and severe left facet hypertrophy with moderate ligament flavum hypertrophy. Moderate broad disc protrusion produces moderate spinal stenosis, mild right lateral recess stenosis, moderate left lateral recess stenosis with abutment of the left L5 nerve root and moderate by lateral neural foraminal stenosis with abutment of the exiting L4 nerve roots bilaterally. L5-S1: Severe bilateral facet hypertrophy. 5 mm of anterolisthesis of L5 on S1 with a mild broad disc protrusion produces moderate spinal stenosis with moderate bilateral lateral recess stenosis and moderate right neural foraminal stenosis and severe left neural foraminal stenosis with effacement the left L5 nerve root. Normal visualized sacral ala. [place]orses[place] kidney MRI/Spine Lumbar (Routine) IMPRESSION: Mild levoscoliosis with degenerative disc disease as described above. Electronically Signed: Chase Norman MD at 13:08 EST Tel , Service support ,
== END ==
PROVIDERS: PCP Family Medicine; Referring Provider Psychiatry & Neurology Neurology; Visit Provider Psychiatry & Neurology Neurology
DX: M54.16 Radiculopathy, lumbar region (principal)
CPT/HCPCS: 72148

== ENCOUNTER → 2021-03-28 07:01 | Outpatient (CLI) | payer MEDICARE, OTHER, SELFPAY ==
[2021-03-28 07:01] VITALS: BMI 32.3
[2021-03-28 10:03] LABS: Absolute Lymphocyte Count 1.55 X10^3/uL (0.83-4.51); Absolute Neutrophil Count 2.3 X10^3/uL (2.0-7.7); Basophil# 0.04 X10^3/uL; Basophil% 0.9 % (0-1); Eosinophil# 0.19 X10^3/uL; Eosinophils% 4.1 % (0-5); Hematocrit 40.9 % (40-54); Hemoglobin 13.4 g/dL (13.0-16.5); Lymphocyte # 1.55 X10^3/ul (0.83-4.51); Lymphocyte % 33.1 % (19-41); Mean Corp Hgb Conc 32.8 g/dL (32-36); Mean Corpuscular Hgb 34.3 pg (27.0-32.0); Mean Corpuscular Volume 104.6 fL (80-94); Mean Platelet Vol. 10.7 fl (6.2-12.0); Monocyte# 0.57 X10^3/uL; Monocyte% 12.2 % (0-10); NRBC Flagged by Analyzer 0 % (0-5); Neutrophil # 2.32 X10^3/uL (2.7-7.7); Neutrophil % 49.5 % (47-70); Platelet Count 186 K/mm3 (150-450); RBC Distribution Width CV 13.2 % (11.6-14.6); RBC Distribution Width SD 51.1 fl (35.1-43.9); Red Blood Count 3.91 M/mm3 (4.6-6.2); White Blood Count 4.7 K/mm3 (4.4-11.0)
[2021-03-28 10:49] LABS: Hemoglobin A1c 5.5 % (3.8-5.6)
[2021-03-28 11:09] LABS: AST(SGOT) 20 U/L (15-37); Alanine Aminotransfer ALT/SGPT 36 U/L (16-61); Albumin, Serum 3.7 g/dL (3.2-5.0); Alkaline Phosphatase 103 U/L (45-117); Anion Gap 4 (5-15); BUN 34 mg/dL (7-18); BUN/Creat Ratio 25.6 RATIO (10-20); Calcium,Total 9.1 mg/dL (8.5-10.1); Chloride 109 mmol/L (98-107); Cholesterol 156 mg/dL (200); Creatinine, Serum 1.33 mg/dL (0.70-1.30); EST Glomerular Filtration Rate 55 mL/min (>60); Est Glom Filt Rate - Afr Amer 67 mL/min (>60); Globulin 3.8 g/dL (2.2-4.2); Glucose 94 mg/dL (74-106); High Density Lipoprotein 44 mg/dL; PSA,Total - Annual Screen 1.79 ng/mL (0.00-4.00); Potassium 4.5 mmol/L (3.5-5.1); Protein, Total 7.5 g/dL (6.4-8.2); Sodium Level 140 mmol/L (136-145); Triglycerides 128 mg/dL; Very Low Density Lipoprotein 26 mg/dL (5-40)
== END ==
PROVIDERS: PCP Family Medicine; Referring Provider Family Medicine; Visit Provider Family Medicine
DX: Z00.00 Encounter for general adult medical examination without abnormal findings (principal); R73.02 Impaired glucose tolerance (oral); E78.5 Hyperlipidemia, unspecified; I10 Essential (primary) hypertension; Z12.5 Encounter for screening for malignant neoplasm of prostate
CPT/HCPCS: 36415; 80053; 80061; 83036; 84153; 85025; G0103

== ENCOUNTER → 2021-03-31 14:05 | Outpatient (CLI) | payer MEDICARE, OTHER, SELFPAY ==
[2021-03-28 07:01] VITALS: BMI 32.3
[2021-03-31 17:24] LABS: Vitamin B12 > 2000 pg/mL (211-911)
== END ==
PROVIDERS: PCP Family Medicine; Referring Provider Family Medicine; Visit Provider Family Medicine
DX: D75.89 Other specified diseases of blood and blood-forming organs (principal)
CPT/HCPCS: 36415; 82607

== ENCOUNTER → 2021-06-10 10:25 | Outpatient (CLI) | payer MEDICARE, OTHER, SELFPAY ==
[2021-06-10 09:03] VITALS: BMI 34.9
[2021-06-10 12:51] LABS: Anion Gap 5 (5-15); BUN 32 mg/dL (7-18); BUN/Creat Ratio 27.6 RATIO (10-20); Calcium,Total 9.3 mg/dL (8.5-10.1); Chloride 106 mmol/L (98-107); Creatinine, Serum 1.16 mg/dL (0.70-1.30); EST Glomerular Filtration Rate 65 mL/min (>60); Est Glom Filt Rate - Afr Amer 78 mL/min (>60); Glucose 95 mg/dL (74-106); Potassium 4.9 mmol/L (3.5-5.1); Sodium Level 140 mmol/L (136-145)
== END ==
PROVIDERS: PCP Internal Medicine; Referring Provider Internal Medicine; Visit Provider Internal Medicine
DX: R79.89 Other specified abnormal findings of blood chemistry (principal)
CPT/HCPCS: 36415; 80048

== ENCOUNTER 2021-07-14 10:17 | Emergency (ER) | payer MEDICARE, OTHER, SELFPAY ==
[2021-07-14 10:18] VITALS: BP 154/82; PULSE 66; RESP 16; TEMP 36; O2SAT 96; BMI 32.5
--- NOTE | 2021-07-14 11:12 | EX.ED.DYSGE1 ---
HPI History of Present Illness Chief Complaint: Cold Sx Narrative Narrative: Patient presents with a few day history of cough and congestion. He has no shortness of breath. He has no fever or chills. No neck pain or neck stiffness. No rash. No loss of sense of smell or taste. His was diagnosed with Covid yesterday. He is otherwise asymptomatic. [facility] Medical History Acute ethmoidal sinusitis, unspecified Hyperlipidemia Hypertension Nonrheumatic mitral (valve) insufficiency Nonrheumatic tricuspid (valve) insufficiency Home Medications cyanocobalamin (vitamin B-12) 1,000 mcg tablet 1,000 mcg PO QDAY 06/08/18 [History Last Taken Unknown] multivitamin 1 tab PO QDAY 06/08/18 [History Last Taken Unknown] omeprazole 20 mg capsule,delayed release 20 mg PO QDAY 06/08/18 [History Last Taken Unknown] simvastatin 40 mg tablet 40 mg PO QPM 06/08/18 [History Last Taken Unknown] valsartan 320 mg-hydrochlorothiazide 25 mg tablet 1 tab PO QDAY 06/08/18 [History Last Taken Unknown] allopurinol 100 mg tablet 200 mg PO QDAY tab 06/13/18 [History Last Taken Unknown] aspirin 81 mg tablet,delayed release 81 mg PO DAILY tab 03/09/19 [History Last Taken Unknown] omega-3 acid ethyl esters 1 gram capsule 2 cap PO BID cap 09/11/19 [History Last Taken Unknown] vit C 250 mg-vit E 90 mg-zinc 40 mg-copper 1 [id number] capsule 2 tab PO DAILY cap 09/23/20 [History Last Taken Unknown] amitriptyline 25 mg tablet 50 mg PO QHS #60 tab 07/01/21 [Rx Last Taken Unknown] diclofenac sodium 75 mg tablet,delayed release 75 mg PO BID PRN tab 07/01/21 [History Last Taken Unknown] Allergy/AdvReac Type Severity Reaction Status Date / Time No Known Allergies Allergy Verified 07/14/21 10:18 Family History Father Dementia Mother Atrial fibrillation Surgical History History of cystoscopy (~02/2008) History of tonsillectomy and adenoidectomy Social History Smoking Status: Never smoker alcohol intake: current alcohol intake frequency: a few times a week Alcohol type: wine substance use type: does not use caffeine: Yes Type: coffee Number of servings: 3 ROS ROS ED ROS Narrative Past medical history: Reviewed, hypertension, hypercholesterolemia. He is not a diabetic. Medications: Reviewed Social history: Noncontributory Vaccination: He is vaccinated for Covid. Review of systems: All systems negative except as indicated General: No fever Eyes: No visual changes ENT: Some upper airway congestion. Neck: No neck pain Cardiovascular: No chest pain Respiratory: No shortness of breath or cough Gastrointestinal: No abdominal pain, nausea vomiting or diarrhea Genitourinary: No dysuria Musculoskeletal: Denies myalgias no difficulty with ambulation Skin: No rash Neurological: No memory loss, confusion or any focal weakness Psych: No recent behavioral changes Hematologic: No easy bleeding or easy bruising EXAM Physical Exam Narrative Exam Narrative: Physical exam General: Well nourished, Well developed, No Acute Distress Head: Normocephalic, Atraumatic Eyes: Conjunctiva not pale ENT: Moist mucous membranes. I cannot appreciate any upper airway congestion. Neck: Supple, Nontender, No lymphadenopathy Cardiovascular: Regular rate, Regular rhythm Respiratory: No distress, CTA bilaterally Abdomen: Soft, Nontender, Nondistended Back: Nontender, Normal Inspection. Negative for: CVA tenderness Extremities: Nontender, No edema Skin: Normal color, No rash Neurological: Alert, Normal Strength, Normal Sensation Psychological: Normal affect Const Vital Signs: 07/14/21 10:18 Temperature 96.8 F L Temperature Source Temporal Pulse Rate 66 Respiratory Rate 16 Blood Pressure 154/82 H Blood Pressure Mean 106 Pulse Ox 96 Oxygen Delivery Method Room Air MDM MDM MDM Narrative Medical decision making narrative: Patient appears well, he is vaccinated but there is a chance he has Covid I told him to quarantine otherwise we will check a test and call if positive. Discharge Plan Triage Chief Complaint: Cold Sx ED Provider: Jerome Latham Dx/Rx/DC Orders Clinical Impression: Upper respiratory infection Instructions: ED URI, Viral, No Abx (Adult) Prescriptions: No Action cyanocobalamin (vitamin B-12) [Vitamin B-12] 1,000 mcg tablet 1,000 mcg PO QDAY RF: 0 valsartan-hydrochlorothiazide [Diovan HCT] 320-25 mg tablet 1 tab PO QDAY RF: 0 multivitamin tablet 1 tab PO QDAY RF: 0 simvastatin 40 mg tablet 40 mg PO QPM RF: 0 omeprazole 20 mg capsule,delayed release(DR/EC) 20 mg PO QDAY RF: 0 allopurinol 100 mg tablet 200 mg PO QDAY RF: 0 aspirin [Adult Aspirin Regimen] 81 mg tablet,delayed release (DR/EC) 81 mg PO DAILY RF: 0 omega-3 acid ethyl esters [Lovaza] 1 gram capsule 2 cap PO BID RF: 0 PreserVision AREDS-2 [id number] ej-ratz-in-mg capsule 2 tab PO DAILY RF: 0 diclofenac sodium 75 mg tablet,delayed release (DR/EC) 75 mg PO BID PRN (Reason: pain) RF: 0 amitriptyline 25 mg tablet 50 mg PO QHS Qty: 60 RF: 3 Primary Care Provider: Melissa Hussein Referrals: Melissa Hussein MD [Primary Care Provider] - 2 Days Activity Restrictions/Additional Instructions: You have been exposed to COVID-19, quarantine yourself until the test is back. If you have shortness of breath or worsening symptoms return to the ED. Disposition Disposition: Home, Self Care
== END 2021-07-14 11:40 | disposition home or self-care (01) ==
LOC: ED 11:24
PROVIDERS: Emergency Provider Emergency Medicine; PCP Internal Medicine
DX: J06.9 Acute upper respiratory infection, unspecified (principal); Z20.822 Contact with and (suspected) exposure to COVID-19; Z79.82 Long term (current) use of aspirin
CPT/HCPCS: 87426; 99283

== ENCOUNTER → 2021-09-30 07:40 | Outpatient (CLI) | payer MEDICARE, OTHER, SELFPAY ==
[2021-09-30 10:46] LABS: Hemoglobin A1c 5.6 % (3.8-5.6)
[2021-09-30 10:52] LABS: ALB/GLOB Ratio 0.9 RATIO (0.9-2.4); AST(SGOT) 25 U/L (15-37); Alanine Aminotransfer ALT/SGPT 40 U/L (16-61); Albumin, Serum 3.4 g/dL (3.2-5.0); Alkaline Phosphatase 108 U/L (45-117); Anion Gap 6 (5-15); BUN 35 mg/dL (7-18); Calcium,Total 8.9 mg/dL (8.5-10.1); Chloride 110 mmol/L (98-107); Cholesterol 142 mg/dL (200); EST Glomerular Filtration Rate 52 mL/min (>60); Est Glom Filt Rate - Afr Amer 63 mL/min (>60); Globulin 3.7 g/dL (2.2-4.2); Glucose 110 mg/dL (74-106); High Density Lipoprotein 39 mg/dL; Potassium 4.2 mmol/L (3.5-5.1); Protein, Total 7.1 g/dL (6.4-8.2); Sodium Level 140 mmol/L (136-145); Triglycerides 144 mg/dL; Uric Acid 5.9 mg/dL (3.5-7.2); Very Low Density Lipoprotein 29 mg/dL (5-40)
== END ==
PROVIDERS: PCP Family Medicine; Referring Provider Family Medicine; Visit Provider Family Medicine
DX: R73.02 Impaired glucose tolerance (oral) (principal); E78.5 Hyperlipidemia, unspecified; I10 Essential (primary) hypertension; M10.9 Gout, unspecified
CPT/HCPCS: 36415; 80053; 80061; 83036; 84550

== ENCOUNTER → 2022-04-03 | Outpatient (CLI) | payer MEDICARE, OTHER, SELFPAY ==
[2022-04-03 10:16] LABS: Absolute Lymphocyte Count 1.67 X10^3/uL (0.83-4.51); Basophil# 0.04 X10^3/uL; Basophil% 0.7 % (0-1); Eosinophil# 0.22 X10^3/uL; Eosinophils% 3.9 % (0-5); Hematocrit 38.4 % (40-54); Hemoglobin 13.3 g/dL (13.0-16.5); Lymphocyte # 1.67 X10^3/ul (0.83-4.51); Lymphocyte % 29.4 % (19-41); Mean Corp Hgb Conc 34.6 g/dL (32-36); Mean Corpuscular Hgb 36.2 pg (27.0-32.0); Mean Corpuscular Volume 104.6 fL (80-94); Mean Platelet Vol. 10.8 fl (6.2-12.0); Monocyte# 0.74 X10^3/uL; NRBC Flagged by Analyzer 0 % (0-5); Neutrophil % 52.8 % (47-70); Platelet Count 205 K/mm3 (150-450); RBC Distribution Width CV 13.4 % (11.6-14.6); RBC Distribution Width SD 51.4 fl (35.1-43.9); Red Blood Count 3.67 M/mm3 (4.6-6.2); White Blood Count 5.7 K/mm3 (4.4-11.0)
[2022-04-03 10:35] LABS: AST(SGOT) 22 U/L (15-37); Alanine Aminotransfer ALT/SGPT 36 U/L (16-61); Albumin, Serum 3.7 g/dL (3.2-5.0); Alkaline Phosphatase 93 U/L (45-117); Anion Gap 5 (5-15); BUN 47 mg/dL (7-18); BUN/Creat Ratio 28.8 RATIO (10-20); Calcium,Total 9.4 mg/dL (8.5-10.1); Chloride 110 mmol/L (98-107); Cholesterol 133 mg/dL (200); Creatinine, Serum 1.63 mg/dL (0.70-1.30); EST Glomerular Filtration Rate 44 mL/min (>60); Est Glom Filt Rate - Afr Amer 53 mL/min (>60); Globulin 3.8 g/dL (2.2-4.2); Glucose 99 mg/dL (74-106); High Density Lipoprotein 39 mg/dL; PSA,Total - Annual Screen 1.95 ng/mL (0.00-4.00); Potassium 4.2 mmol/L (3.5-5.1); Protein, Total 7.5 g/dL (6.4-8.2); Sodium Level 140 mmol/L (136-145); Triglycerides 142 mg/dL; Very Low Density Lipoprotein 28 mg/dL (5-40)
[2022-04-03 10:57] LABS: Hemoglobin A1c 5.7 % (3.8-5.6)
== END | disposition home or self-care (01) ==
LOC: MTLAB 07:07
PROVIDERS: PCP Family Medicine; Referring Provider Family Medicine; Visit Provider Family Medicine
DX: Z00.00 Encounter for general adult medical examination without abnormal findings (principal); R73.02 Impaired glucose tolerance (oral); E78.5 Hyperlipidemia, unspecified; I10 Essential (primary) hypertension; D75.89 Other specified diseases of blood and blood-forming organs; Z12.5 Encounter for screening for malignant neoplasm of prostate
CPT/HCPCS: 36415; 80053; 80061; 83036; 84153; 85025; G0103

== ENCOUNTER 2022-05-04 12:27 | Emergency (ER) | payer MEDICARE, OTHER, SELFPAY ==
[2022-05-04 12:29] VITALS: BP 143/67; PULSE 86; RESP 16; TEMP 36.4; O2SAT 98; BMI 30.2
[2022-05-04 12:39] VITALS: BP 133/72; PULSE 73; RESP 12
[2022-05-04 12:44] VITALS: BP 105/64; BP 118/62; BP 124/76; PULSE 70; PULSE 73; PULSE 76
--- NOTE | 2022-05-04 13:04 | EDS_ITS ---
HPI History of Present Illness Chief Complaint: General Illness Detail of Chief Complaint: Dehydration Informant: patient Onset/Context/Timing Onset: Days Narrative Narrative: Patient presents due to concerns for dehydration. [place] was [place] when he developed a GI bug. He had significant vomiting with very mild diarrhea. For the next 4 days he did not really eat or drink as every time he would it would cause vomiting. He eventually flew home early from his trip. He states has been eating a bland diet. This morning his blood pressure was lower than normal and he felt slightly lightheaded when he first stood up. [facility] Medical History Hyperlipidemia Hypertension Nonrheumatic mitral (valve) insufficiency Nonrheumatic tricuspid (valve) insufficiency Home Medications cyanocobalamin (vitamin B-12) 1,000 mcg tablet 1,000 mcg PO QDAY 06/08/18 [History Last Taken Unknown] multivitamin 1 tab PO QDAY 06/08/18 [History Last Taken Unknown] omeprazole 20 mg capsule,delayed release 20 mg PO QDAY 06/08/18 [History Last Taken Unknown] simvastatin 40 mg tablet 40 mg PO QPM 06/08/18 [History Last Taken Unknown] valsartan 320 mg-hydrochlorothiazide 25 mg tablet 1 tab PO QDAY 06/08/18 [History Last Taken Unknown] allopurinol 100 mg tablet 200 mg PO QDAY tab 06/13/18 [History Last Taken Unknown] aspirin 81 mg tablet,delayed release 81 mg PO DAILY tab 03/09/19 [History Last Taken Unknown] omega-3 acid ethyl esters 1 gram capsule 2 cap PO BID cap 09/11/19 [History Last Taken Unknown] vit C 250 mg-vit E 90 mg-zinc 40 mg-copper 1 ll-khiafh-csabzs capsule 2 tab PO DAILY cap 09/23/20 [History Last Taken Unknown] amitriptyline 25 mg tablet 25 mg PO QHS tab 09/01/21 [History Last Taken Unknown] sildenafil (pulm.hypertension) 20 mg tablet 20 mg PO Q24H PRN tab 09/29/21 [History Last Taken Unknown] diclofenac sodium 75 mg tablet,delayed release 75 mg PO BID PRN #180 tab 12/10/21 [Rx Last Taken Unknown] Allergy/AdvReac Type Severity Reaction Status Date / Time No Known Allergies Allergy Verified 05/04/22 12:42 Family History Father Dementia Mother Atrial fibrillation Surgical History History of cystoscopy (~02/2008) History of tonsillectomy and adenoidectomy Social History Smoking Status: Never smoker alcohol intake: current alcohol intake frequency: a few times a week Alcohol type: wine substance use type: does not use caffeine: Yes Type: coffee Number of servings: 3 ROS ROS ED Constitutional Constitutional ED: Denies chills or fever(s) Eyes Eyes: Denies change in vision ENT ENT ED: Denies sore throat Cardiovascular Cardiovascular: Denies chest pain Respiratory/Chest Respiratory/Chest: Denies cough or dyspnea Gastrointestinal Gastrointestinal: Reports diarrhea, nausea and vomiting; Denies abdominal pain Genitourinary Genitourinary ED: Denies dysuria Musculoskeletal Musculoskeletal: Denies back pain Integumentary Denies rash Neurologic Neurologic: Reports weakness; Denies headache(s) Psychiatric Psychiatric: Denies anxiety or depression Allergic/Immunologic Allergic/Immunologic ED: Denies urticaria EXAM Physical Exam Const Vital Signs: 05/04/22 12:29 05/04/22 12:39 05/04/22 12:44 Temperature 97.6 F L Temperature Source Temporal Pulse Rate 86 73 Pulse Rate [Lying] 70 Pulse Rate [Sitting (for 1 minute prior to obtaining)] 73 Pulse Rate [Standing (for 1 minute prior to obtaining)] 76 Respiratory Rate 16 12 Respiratory Effort Normal Respiratory Pattern Normal Blood Pressure 143/67 H 133/72 H Blood Pressure [Lying] 124/76 H Blood Pressure [Sitting (for 1 minute prior to obtaining)] 118/62 Blood Pressure [Standing (for 1 minute prior to obtaining)] 105/64 Blood Pressure Mean 92 92 Blood Pressure Mean [Lying] 92 Blood Pressure Mean [Sitting (for 1 minute prior to obtaining)] 80 Blood Pressure Mean [Standing (for 1 minute prior to obtaining)] 77 Pulse Ox 98 Oxygen Delivery Method Room Air Positive well nourished and well developed General Appearance ED: well developed HEENT Negative for trauma Eyes PERRL and EOMs intact bilaterally Neck supple Chest Wall inspection of chest normal and palpation of chest normal Resp normal respiratory effort and clear to auscultation bilaterally Cardio regular rate and regular rhythm GI normal to inspection, nondistended, normoactive bowel sounds and non-tender Palpation: soft Extremity normal to inspection Neuro oriented x3 and no sensory deficits noted Sensorium / Orientation: alert Motor Exam: strength 5/5 throughout Psych mental status grossly normal Skin no rashes or lesions noted MDM MDM MDM Narrative Medical decision making narrative: Liter IV fluids. Lab work and urinalysis obtained. Lab Data Labs: Laboratory Results - last 24 hr 05/04/22 05/04/22 05/04/22 13:15 13:15 13:15 WBC 8.5 RBC 3.41 L Hgb 12.0 L Hct 34.4 L MCV 100.9 H MCH 35.2 H MCHC 34.9 RDW Std Deviation 50.4 H RDW Coeff of Lorin 13.6 Plt Count 251 MPV 10.6 Immature Gran % (Auto) 2.800 H Neut % (Auto) 61.4 Lymph % (Auto) 19.6 [place] % (Auto) 13.2 H Eos % (Auto) 2.2 Baso % (Auto) 0.8 Absolute Neuts (auto) 5.2 Absolute Lymphs (auto) 1.67 Nucleated RBC % 0 Sodium Cancelled Potassium Cancelled Chloride Cancelled Carbon Dioxide Cancelled Anion Gap Cancelled BUN Cancelled Creatinine Cancelled Estim Creat Clear Calc Cancelled Est GFR (MDRD) Af Amer Cancelled Est GFR (MDRD) Non-Af Cancelled BUN/Creatinine Ratio Cancelled Glucose Cancelled Calcium Cancelled Total Bilirubin Cancelled Direct Bilirubin Cancelled AST Cancelled ALT Cancelled Alkaline Phosphatase Cancelled Total Protein Cancelled Albumin Cancelled Globulin Cancelled Urine Color Yellow Urine Clarity Clear Urine pH 6.0 Ur Specific [place] 1.010 Urine Protein Negative Urine Glucose (UA) Normal Urine Ketones Negative Urine Occult Blood Negative Urine Nitrite Negative Urine Bilirubin Negative Urine Urobilinogen Normal Ur Leukocyte Esterase Negative Urine RBC 0 SEEN Urine WBC 0 SEEN Ur Squamous Epith Cells 0-5 SEEN Urine Bacteria 0 SEEN Urine Mucus 0 SEEN 05/04/22 13:30 WBC RBC Hgb Hct MCV MCH MCHC RDW Std Deviation RDW Coeff of Lorin Plt Count MPV Immature Gran % (Auto) Neut % (Auto) Lymph % (Auto) [place] % (Auto) Eos % (Auto) Baso % (Auto) Absolute Neuts (auto) Absolute Lymphs (auto) Nucleated RBC % Sodium 139 Potassium 3.9 Chloride 107 Carbon Dioxide 25.0 Anion Gap 7 BUN 38 H Creatinine 1.15 Estim Creat Clear Calc 52.09 Est GFR (MDRD) Af Amer 79 Est GFR (MDRD) Non-Af 65 BUN/Creatinine Ratio 33.0 H Glucose 117 H Calcium 9.3 Total Bilirubin 0.40 Direct Bilirubin 0.10 AST 29 ALT 42 Alkaline Phosphatase 146 H Total Protein 7.1 Albumin 2.9 L Globulin 4.2 Urine Color Urine Clarity Urine pH Ur Specific [place] Urine Protein Urine Glucose (UA) Urine Ketones Urine Occult Blood Urine Nitrite Urine Bilirubin Urine Urobilinogen Ur Leukocyte Esterase Urine RBC Urine WBC Ur Squamous Epith Cells Urine Bacteria Urine Mucus Treatment and Re-Evaluation Narrative: CBC largely unremarkable. Mild anemia with a hemoglobin of 12. Chemistry studies reveal a BUN of 38 which appears to be consistent with his prior values. Creatinine is 1.15. Potassium is normal. Albumin is noted to be low at 2.9. Urinalysis reveals no infection and no ketones. On repeat evaluation patient resting comfortably. Test results discussed with patient and at bedside. I did encourage trying to increase protein intake over the next several days. He will continue supportive care and advance his diet as tolerated. Return instructions given. Discharge Plan Triage Chief Complaint: General Illness ED Provider: Yuliya Cano Dx/Rx/DC Orders Clinical Impression: Vomiting, Dehydration Instructions: ED Dehydration (Adult), ED Vomiting and Diarrhea ... Prescriptions: No Action cyanocobalamin (vitamin B-12) [Vitamin B-12] 1,000 mcg tablet 1,000 mcg PO QDAY RF: 0 valsartan-hydrochlorothiazide [Diovan HCT] 320-25 mg tablet 1 tab PO QDAY RF: 0 multivitamin tablet 1 tab PO QDAY RF: 0 simvastatin 40 mg tablet 40 mg PO QPM RF: 0 omeprazole 20 mg capsule,delayed release(DR/EC) 20 mg PO QDAY RF: 0 allopurinol 100 mg tablet 200 mg PO QDAY RF: 0 aspirin [Adult Aspirin Regimen] 81 mg tablet,delayed release (DR/EC) 81 mg PO DAILY RF: 0 omega-3 acid ethyl esters [Lovaza] 1 gram capsule 2 cap PO BID RF: 0 PreserVision AREDS-2 [id number] nc-vtii-ym-mg capsule 2 tab PO DAILY RF: 0 amitriptyline 25 mg tablet 25 mg PO QHS RF: 0 sildenafil (pulm.hypertension) 20 mg tablet 20 mg PO Q24H PRN (Reason: sexual activity) RF: 0 diclofenac sodium 75 mg tablet,delayed release (DR/EC) 75 mg PO BID PRN (Reason: pain) Qty: 180 RF: 1 Primary Care Provider: Anderson Izaguirre Referrals: Anderson Izaguirre MD [Primary Care Provider] - 3-5 Days if not improving Disposition Disposition: Home, Self Care
[2022-05-04] MEDS: 0.9% Normal Saline 1,000 ML 1000 ML IV (13:16)
[2022-05-04 13:21] LABS: Bacteria 0 SEEN /hpf (None Seen); Mucous, Urine 0 SEEN /hpf (<or=2+); Red Blood Cells-Urine 0 SEEN /hpf (0-5); White Blood Cells 0 SEEN /hpf (0-5)
[2022-05-04 13:24] LABS: Color, Urine Yellow (Yellow); Glucose, Dipstick Normal (Normal); Ketone-Dipstick Negative (Negative); Leukocyte Esterase-Dipstick Negative /ul (Negative); Nitrite-Dipstick Negative (Negative); Occult Blood-Urine Negative /ul (Negative); Protein-Dipstick Negative (Negative); Urine Bilirubin Dipstick Negative (Negative); Urine Clarity Clear (Clear); Urine Urobilinogen Normal (Normal)
[2022-05-04 13:46] LABS: Absolute Lymphocyte Count 1.67 X10^3/uL (0.83-4.51); Absolute Neutrophil Count 5.2 X10^3/uL (2.0-7.7); Basophil# 0.07 X10^3/uL; Basophil% 0.8 % (0-1); Eosinophil# 0.19 X10^3/uL; Eosinophils% 2.2 % (0-5); Hematocrit 34.4 % (40-54); Lymphocyte # 1.67 X10^3/ul (0.83-4.51); Lymphocyte % 19.6 % (19-41); Mean Corp Hgb Conc 34.9 g/dL (32-36); Mean Corpuscular Hgb 35.2 pg (27.0-32.0); Mean Corpuscular Volume 100.9 fL (80-94); Mean Platelet Vol. 10.6 fl (6.2-12.0); Monocyte# 1.13 X10^3/uL; Monocyte% 13.2 % (0-10); NRBC Flagged by Analyzer 0 % (0-5); Neutrophil # 5.24 X10^3/uL (2.7-7.7); Neutrophil % 61.4 % (47-70); POSITIVE MORPHOLOGY YES; Platelet Count 251 K/mm3 (150-450); RBC Distribution Width CV 13.6 % (11.6-14.6); RBC Distribution Width SD 50.4 fl (35.1-43.9); Red Blood Count 3.41 M/mm3 (4.6-6.2); White Blood Count 8.5 K/mm3 (4.4-11.0)
[2022-05-04 13:50] LABS: Squamous Epithelial Cells - UA 0-5 SEEN /hpf (0-5)
[2022-05-04 13:57] LABS: AST(SGOT) 29 U/L (15-37); Alanine Aminotransfer ALT/SGPT 42 U/L (16-61); Albumin, Serum 2.9 g/dL (3.2-5.0); Alkaline Phosphatase 146 U/L (45-117); Anion Gap 7 (5-15); BUN 38 mg/dL (7-18); Calcium,Total 9.3 mg/dL (8.5-10.1); Chloride 107 mmol/L (98-107); Creatinine, Serum 1.15 mg/dL (0.70-1.30); EST Glomerular Filtration Rate 65 mL/min (>60); Est Glom Filt Rate - Afr Amer 79 mL/min (>60); Estimated Creatinine Clearance 52.09 ml/min; Globulin 4.2 g/dL (2.2-4.2); Glucose 117 mg/dL (74-106); Potassium 3.9 mmol/L (3.5-5.1); Protein, Total 7.1 g/dL (6.4-8.2); Sodium Level 139 mmol/L (136-145)
[2022-05-04 14:07] LABS: Differential Indicated SCAN CRITERIA MET
[2022-05-04 14:28] VITALS: BP 101/66; PULSE 62; RESP 17; O2SAT 97
[2022-05-04 14:40] LABS: Platelet Estimate ADEQUATE (ADEQ); Red Cell Morphology NORM C+C NORMAL (NORM C&C)
== END 2022-05-04 15:16 | disposition home or self-care (01) ==
PROVIDERS: Emergency Provider Emergency Medicine; PCP Family Medicine; Visit Provider Emergency Medicine
DX: R11.10 Vomiting, unspecified (principal); E86.0 Dehydration; E78.5 Hyperlipidemia, unspecified; I10 Essential (primary) hypertension; Z79.899 Other long term (current) drug therapy
CPT/HCPCS: 80048; 80076; 81001; 85025; 96360; 99283; J7030; A4216

== ENCOUNTER → 2022-10-12 | Outpatient (CLI) | payer MEDICARE, OTHER, SELFPAY ==
[2022-10-14 16:09] LABS: Albumin 3.9 g/dL (2.9-4.4); Alpha-1-Globulins 0.3 g/dL (0.0-0.4); Alpha-2-Globulins 0.6 g/dL (0.4-1.0); Free Kappa Light Chains 51.5 mg/L (3.3-19.4); Gamma Globulin 1.4 g/dL (0.4-1.8); Immunoglobulin A 239 mg/dL (61-437); Immunoglobulin G 1382 mg/dL (603-1613); Immunoglobulin M 184 mg/dL (15-143); PROEL- TOTAL PROTEIN 7.2 g/dL (6.0-8.5)
== END | disposition home or self-care (01) ==
PROVIDERS: PCP Family Medicine; Referring Provider Psychiatry & Neurology Neurology; Visit Provider Psychiatry & Neurology Neurology
DX: G62.9 Polyneuropathy, unspecified (principal)
CPT/HCPCS: 36415; 82784; 83883; 84165; 86334; 86335

== ENCOUNTER → 2023-02-05 | Outpatient (CLI) | payer MEDICARE, OTHER, SELFPAY ==
[2023-02-05 12:34] LABS: Erythrocyte Sedimentation Rate 9 mm/hr (0-20)
[2023-02-05 13:10] LABS: CRP < 2.90 mg/L (0.0-3.0); Ferritin 96 ng/mL (26-388); Free T3 2.4 pg/mL (2.18-3.98); LDH 174 U/L (87-241); T4 Free Direct 0.91 ng/dL (0.76-1.46); Thyroid Stim Hormone (TSH) 3.08 uIU/mL (0.358-3.74)
[2023-02-08 15:08] LABS: Endomysial Antibody IgA Negative (Negative)
[2023-02-08 16:26] LABS: Immunoglobulin A 260 mg/dL (61-437); t-Transglutaminase IgA <2 U/mL (0-3)
[2023-02-09 10:08] LABS: Cytoplasmic Ab (C-ANCA) <1:20 titer (Neg:<1:20); Immunoglobulin A 257 mg/dL (61-437); Immunoglobulin E 76 IU/mL (6-495); Immunoglobulin G 1421 mg/dL (603-1613)
[2023-02-09 15:51] LABS: Anti-Parietal Cell AB, QN 2.6 Units (0.0-20.0); Immunoglobulin M 195 mg/dL (15-143); Perinuclear Ab (P-ANCA) <1:20 titer (Neg:<1:20)
== END | disposition home or self-care (01) ==
LOC: LAB 11:04
PROVIDERS: PCP Family Medicine; Referring Provider Internal Medicine Gastroenterology; Visit Provider Internal Medicine Gastroenterology
DX: K59.00 Constipation, unspecified (principal); D64.9 Anemia, unspecified
CPT/HCPCS: 36415; 82728; 82784; 82785; 83516; 83615; 84439; 84443; 84481; 85652; 86140; 86255; 86256

== ENCOUNTER → 2023-02-11 | Outpatient (CLI) | payer MEDICARE, OTHER, SELFPAY ==
--- NOTE | 2023-02-11 11:46 | NM_ITS ---
CLINICAL: 82-year-old male with history of clinical gastroparesis. SEMI-SOLID PHASE 99m Tc SULFUR COLLOID GASTRIC EMPTYING STUDY COMPARISON: None available FINDINGS: The patient was administered 1.2 mCi of 99m Tc sulfur colloid mixed with oatmeal and consumed per os. Image acquisitions in the anterior-posterior projections were obtained for 60 minutes. There is prompt visualization of the stomach. There is no gastroesophageal reflux identified. The T ? linear fit was calculated to be 39.22 minutes, (Normal: 12-56 minutes). NM/Gastric Emptying Study IMPRESSION: 1. NORMAL 99m Tc sulfur colloid semi-solid phase (oatmeal) gastric emptying imaging examination. A. There is normal and preserved semi-solid phase gastric emptying compared to normal controls. (Hemalatha et al, J Nucl Med Tech 38: 186, 2010). Electronically Signed: Chase Sherman, at 22:04 EDT ,
== END | disposition home or self-care (01) ==
LOC: NM 11:45
PROVIDERS: PCP Family Medicine; Visit Provider Internal Medicine Gastroenterology
DX: K31.84 Gastroparesis (principal)
CPT/HCPCS: 78264; A9541

== ENCOUNTER → 2023-02-16 | Outpatient (CLI) | payer MEDICARE, OTHER, SELFPAY ==
--- NOTE | 2023-02-16 13:26 | CT_ITS ---
STUDY: CT ABDOMEN AND PELVIS WITH CONTRAST REASON FOR EXAM: Male, 82 years old. Chronic constipation. RADIATION DOSAGE (If Supplied By Facility): CTDIvol = ( 15.06 ) mGy, DLP = ( 1267.12 ) mGycm TECHNIQUE: Transaxial images were obtained from the dome of the diaphragm to the symphysis pubis with oral contrast. Oral and amp; IV Readi-CAT and amp; 100mL Isovue-300 was administered. Sagittal and coronal images were reconstructed. Individualized dose optimization techniques were used for this CT. COMPARISON: None. FINDINGS: The visualized lung bases are unremarkable. Coronary artery calcification. There is decreased attenuation of the liver consistent with steatosis. Normal gallbladder and extrahepatic biliary system. Normal spleen. There is diffuse atrophy of the pancreas. Normal bilateral adrenal glands. 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 There is a 9 mm calculus in the midpole calyx of the right kidney. No significant hydronephrosis is seen. There is a 1.1 cm calculus at the left ureterovesical junction as it enters the urinary bladder. Normal visualized stomach. Normal small intestine. There are multiple colonic diverticula consistent with diverticulosis. The appendix is visualized and appears normal. There is diffuse atherosclerotic calcification of the abdominal aorta and its major visceral branches, without a demonstrated aneurysm. Normal inferior vena cava. Normal retroperitoneum. Normal urinary bladder. There are prostatic calcifications. The prostate measures 4.5 cm by 4.5 cm. This causes indentation of the bladder base. There is a left-sided inguinal hernia containing adipose tissue. There are diffuse degenerative changes of the visualized lumbar spine. Minimal anterolisthesis of L4 on L5 and L5 on S1. CT/Abdomen/Pelvis WITH Contrast IMPRESSION: Fatty infiltration of the liver. Horseshoe kidney. There is a 9 mm calculus in the midpole calyx of the right kidney. There is also evidence of a 1.1 cm calculus at the left ureterovesical junction as it enters the urinary bladder. Prostatic enlargement with indentation at the bladder base. Electronically Signed: Yomi Bosch MD at 15:21 EDT ,
[2023-02-16 14:01] LABS: CREATININE FINGERSTICK < 0.9 mg/dL (0.70-1.30); EGFR FINGERSTICK > 60.0000 mL/min (>60)
== END | disposition home or self-care (01) ==
LOC: CT 13:25
PROVIDERS: PCP Family Medicine; Referring Provider Internal Medicine Gastroenterology; Visit Provider Internal Medicine Gastroenterology
DX: K59.00 Constipation, unspecified (principal); K57.92 Diverticulitis of intestine, part unspecified, without perforation or abscess without bleeding; K76.0 Fatty (change of) liver, not elsewhere classified; N20.2 Calculus of kidney with calculus of ureter; Q63.1 Lobulated, fused and horseshoe kidney
CPT/HCPCS: 74177; Q9967

== ENCOUNTER → 2023-03-06 | Outpatient (CLI) | payer MEDICARE, OTHER, SELFPAY ==
--- NOTE | 2023-03-06 09:13 | US_ITS ---
STUDY: ABDOMINAL ULTRASOUND - ELASTOGRAPHY REASON FOR VISIT: Male, 82 years old. Fatty infiltration of the liver. TECHNIQUE: Liver stiffness measurements were obtained on a [employer] RS 85 ultrasound machine using a CA 1-7 probe following the SRU guidelines. 3 measurements were obtained using a 2-D-SWE method. TheIQR/M was 17 % suggesting a quality data set. TECHNICAL QUALITY: Adequate. COMPARISON: Comparison is made with prior study done earlier in the day. FINDINGS: Liver: Mild degree of fatty infiltration of the liver. Median liver stiffness measured 13.2 kPa. Abdomen: There is no demonstrated mass lesion. 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 Electronically Signed: Yomi Bosch MD at 12:38 EDT ,
== END | disposition home or self-care (01) ==
LOC: US 09:12
PROVIDERS: PCP Family Medicine; Referring Provider Internal Medicine Gastroenterology; Visit Provider Internal Medicine Gastroenterology
DX: K76.0 Fatty (change of) liver, not elsewhere classified (principal)
CPT/HCPCS: 76705; 76981

== ENCOUNTER → 2023-03-16 | Outpatient (CLI) | payer MEDICARE, OTHER, SELFPAY ==
[2023-03-16 15:43] LABS: Absolute Lymphocyte Count 1.38 X10^3/uL (0.83-4.51); Absolute Neutrophil Count 3.4 X10^3/uL (2.0-7.7); Basophil# 0.07 X10^3/uL; Basophil% 1.2 % (0-1); Eosinophils% 6.8 % (0-5); Hematocrit 39.1 % (40-54); Hemoglobin 13.1 g/dL (13.0-16.5); Lymphocyte # 1.38 X10^3/ul (0.83-4.51); Lymphocyte % 23.4 % (19-41); Mean Corp Hgb Conc 33.5 g/dL (32-36); Mean Corpuscular Hgb 34.7 pg (27.0-32.0); Mean Corpuscular Volume 103.7 fL (80-94); Mean Platelet Vol. 9.9 fl (6.2-12.0); Monocyte# 0.61 X10^3/uL; Monocyte% 10.4 % (0-10); NRBC Flagged by Analyzer 0 % (0-5); Neutrophil # 3.42 X10^3/uL (2.7-7.7); Platelet Count 217 K/mm3 (150-450); RBC Distribution Width CV 13.1 % (11.6-14.6); RBC Distribution Width SD 49.7 fl (35.1-43.9); Red Blood Count 3.77 M/mm3 (4.6-6.2); White Blood Count 5.9 K/mm3 (4.4-11.0)
[2023-03-16 16:30] LABS: ALB/GLOB Ratio 0.9 RATIO (0.9-2.4); AST(SGOT) 22 U/L (15-37); Alanine Aminotransfer ALT/SGPT 32 U/L (16-61); Albumin, Serum 3.7 g/dL (3.2-5.0); Alkaline Phosphatase 102 U/L (45-117); Anion Gap 3 (5-15); BUN 23 mg/dL (7-18); BUN/Creat Ratio 23.1 RATIO (10-20); Calcium,Total 9.5 mg/dL (8.5-10.1); Chloride 102 mmol/L (98-107); EST Glomerular Filtration Rate 77 mL/min (>60); Est Glom Filt Rate - Afr Amer 93 mL/min (>60); Ferritin 88 ng/mL (26-388); Globulin 3.9 g/dL (2.2-4.2); Glucose 94 mg/dL (74-106); Potassium 4.1 mmol/L (3.5-5.1); Protein, Total 7.6 g/dL (6.4-8.2); Sodium Level 133 mmol/L (136-145)
[2023-03-16 16:59] LABS: HIV - WCH Non-Reactive (Nonreactive)
[2023-03-16 17:19] LABS: Hemoglobin A1c 5.6 % (3.8-5.6)
[2023-03-18 15:08] LABS: Anti-Centromere B Ab <0.2 AI (0.0-0.9); Anti-Chromatin <0.2 AI (0.0-0.9); Anti-Jo <0.2 AI (0.0-0.9); Anti-Mitochondrial AB <20.0 Units (0.0-20.0); Anti-Scleroderma-70 AB <0.2 AI (0.0-0.9); Anti-dsDNA Ab <1 IU/mL (0-9); RNP Ab <0.2 AI (0.0-0.9); SJOGREN'S Anti-SS-A test < 0.2 AI (0.0-0.9); SJOGREN'S Anti-SS-B test < 0.2 AI (0.0-0.9); Smith Ab <0.2 AI (0.0-0.9)
[2023-03-19 07:08] LABS: AFP, Tumor Marker 1.9 ng/mL (0.0-8.4); Angiotensin Convert Enzyme 42 U/L (14-82); Anti-Smooth Muscle ABS 12 Units (0-19); Ceruloplasmin 22.5 mg/dL (16.0-31.0); Copper, Serum or Plasma 91 ug/dL (69-132); Cytoplasmic Ab (C-ANCA) <1:20 titer (Neg:<1:20); HEPATITIS B SURFACE AG Negative (Negative); Haptoglobin 114 mg/dL (34-355); Hep C Antibodies Non Reactive (Non Reactive); Hepatitis A IgM Antibody Negative (Negative); Hepatitis B Core AB IgM Negative (Negative); Perinuclear Ab (P-ANCA) <1:20 titer (Neg:<1:20)
== END | disposition home or self-care (01) ==
LOC: MTLAB 13:56
PROVIDERS: PCP Family Medicine; Referring Provider Internal Medicine Gastroenterology; Visit Provider Internal Medicine Gastroenterology
DX: K76.0 Fatty (change of) liver, not elsewhere classified (principal)
CPT/HCPCS: 36415; 80053; 80074; 82105; 82140; 82164; 82390; 82525; 82728; 83010; 83036; 83516; 85025; 86225; 86235; 86256; 86703

== ENCOUNTER → 2023-07-27 | Outpatient (CLI) | payer MEDICARE, OTHER, SELFPAY ==
--- NOTE | 2023-07-27 09:44 | US_ITS ---
STUDY: ABDOMINAL ULTRASOUND - ELASTOGRAPHY REASON FOR VISIT: Male, 83 years old. Fatty infiltration of the liver. TECHNIQUE: Liver stiffness measurements were obtained on a [employer] RS 85 ultrasound machine using a CA 1-7 probe following the SRU guidelines. 3 measurements were obtained using a 2-D-SWE method. TheIQR/M was 12% suggesting a quality data set. TECHNICAL QUALITY: Adequate. COMPARISON: Comparison is made with prior study dated March 06, 2023. FINDINGS: Liver: Fatty infiltration of the liver. Median liver stiffness measured 11.3 kPa. Abdomen: There is no demonstrated mass lesion. US/Elastography Parenchyma/Organ IMPRESSION: Liver stiffness measures 11.3 kPa compatible with F2-F3 (Mild to moderate liver fibrosis) Metavir score. Electronically Signed: Yomi Bosch MD at 14:33 EDT ,
--- NOTE | 2023-07-27 09:44 | US_ITS ---
STUDY: ABDOMINAL ULTRASOUND - RIGHT UPPER QUADRANT REASON FOR VISIT: Male, 83 years old fatty liver TECHNIQUE: Ultrasound evaluation of the right upper quadrant was performed with real-time and static rodríguez-scale imaging. TECHNICAL QUALITY: Limited. Examination limited by bowel gas. COMPARISON: Comparison is made with prior study dated March 06, 2023. FINDINGS: Liver: The liver measures 15.7 cm. There is increased echogenicity consistent with fatty infiltration. The bile ducts are within normal limits. There is hepatic color flow. The direction of portal flow is hepatopetal. There is no demonstrated mass lesion. Gallbladder: Normal distended gallbladder. The gallbladder wall measures 2.8 mm. There is a negative sonographic Layne''s sign. There is no pericholecystic fluid. There are no gallstones. Common Bile Duct (C.B.D.): The common bile duct measures 2.7 mm. Pancreas: There is nonvisualization of the pancreas due to overlying bowel gas. Right Kidney: Normal size of the right kidney. The right kidney measures 11.6 cm x 4.6 x 5.5 cm. Normal renal cortex. The right cortex measures 1.3 cm. There is no demonstrated renal mass or cyst. There is no right hydronephrosis. US/Abdomen Limited IMPRESSION: Fatty infiltration of the liver. Electronically Signed: Yomi Bosch MD at 14:35 EDT ,
== END | disposition home or self-care (01) ==
LOC: US 09:40
PROVIDERS: PCP Family Medicine; Referring Provider Internal Medicine Gastroenterology; Visit Provider Internal Medicine Gastroenterology
DX: K76.0 Fatty (change of) liver, not elsewhere classified (principal)
CPT/HCPCS: 76705; 76981

== ENCOUNTER → 2024-01-24 | Outpatient (CLI) | payer MEDICARE, OTHER, SELFPAY ==
--- NOTE | 2024-01-24 10:00 | US_ITS ---
STUDY: ABDOMINAL ULTRASOUND - RIGHT UPPER QUADRANT; ELASTOGRAPHY REASON FOR VISIT: Male, 83 years old. CASTELLANOS TECHNIQUE: Ultrasound evaluation of the right upper quadrant was performed with real-time and static rodríguez-scale imaging. Point quantification shear wave elastography was performed ([employer]). TECHNICAL QUALITY: Adequate. COMPARISON: Comparison is made with prior study dated July 27, 2023. FINDINGS: Liver: The liver measures 17 cm. There is increased echogenicity consistent with fatty infiltration. The bile ducts are within normal limits. There is hepatic color flow. The direction of portal flow is hepatopetal. There is no demonstrated mass lesion. Median liver stiffness measured 11.7 kPa. Gallbladder: Normal distended gallbladder. The gallbladder wall measures 2.8 mm. There is a negative sonographic Layne''s sign. There is no pericholecystic fluid. There are no gallstones. Common Bile Duct (C.B.D.): The common bile duct measures 5.1 mm. Pancreas: There is normal echogenicity of the visualized pancreas. This fatty atrophy of the pancreas. Right Kidney: Normal size of the right kidney. The right kidney measures 11.9 cm x 4.5 cm x 5.4 cm. Normal renal cortex. The right cortex measures 1.5 cm. There is no demonstrated renal mass or cyst. There is no right hydronephrosis. Horseshoe kidney. US/ABD Limited w/ Elastography IMPRESSION: 1. 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 Electronically Signed: Yomi Bosch MD at 9:13 EDT ,
--- OUTSIDE RECORDS SUMMARY | 2024-01-24 10:24 | XMS RPT_ITS | CCD ---
Author Name Unknown Address [address] [place] [address] Organization [facility] Care Team Providers Care Forensic Science Examiner Name Role Phone Crissy Perry Unavailable Unavailable Lindy RN, Kimmy Jenkins Unavailable Unavailable Augusta Mcneil Unavailable Unavailable Crissy Perry Unavailable Unavailable Crissy Perry Unavailable Unavailable Pcp, No Primary Care Provider Unavailabl e Radha Merino MD Primary Care Provider Radha Merino MD Primary Care Provider Radha Merino MD Primary Care Provider Radha Merino MD Primary Care Provider Radha Merino MD Primary Care Provider [employer] Supervisor, Sharon Solomon Unavailable [phone] Friend Portillo DEWEY Unavailable Yumiko Hernandez MD Unavailable [phone] Patrick Zuniga Unavailable Radha Merino MD Primary Care Provider Nadia GUERRA [place] Unavailable RADHA MERINO Attending Unavailab RADHA Mcdonald Primary Care Unavailab RADHA Mcdonald Attending Unavailab RADHA Mcdonald Primary Care Unavailab RADHA Mcdonald Attending Unavailab RADHA Mcdonald Primary Care Unavailab RADHA Mcdonald Primary Care Unavailab le CHARLENE HEIN Referring Unavailable RADHA MERINO Primary Care Unavailab RADHA Mcdonald Referring Unavailab RADHA Mcdonald Primary Care Unavailab le ANGELIQUE, RADHA LUIS MIGUEL Primary Care Unavailab le ANGELIQUE, RADHA LUIS MIGUEL Primary Care Unavailab le UNWALA, YUMIKO J Referring Unavailable SIVALINGAM, KHUSHBUAN Attending Unavailable ANGELIQUE RADHA LUIS MIGUEL Primary Care Unavailab le LOBODA, CHARLENE Attending Unavailable LOBODA, CHARLENE Attending Unavailable ANGELIQUE, RADHA LUIS MIGUEL Primary Care Unavailab le LOBODA, CHARLENE Referring Unavailable ANGELIQUE, RADHA LUIS MIGUEL Primary Care Unavailab le ANGELIQUE, RADHA LUIS MIGUEL Primary Care Unavailab le ANGELIQUE, RADHA LUIS MIGUEL Primary Care Unavailab le GISELA LEIGH Referring Unavailable ANGELIQUE, RADHA LUIS MIGUEL Primary Care Unavailab le ANGELIQUE, RADHA LUIS MIGUEL Primary Care Unavailab le SIVALINGAM, MILANAHARAN Attending Unavailable ANGELIQUERADHA LUIS MIGUEL Primary Care Unavailab le LOBODA, CHARLENE Referring Unavailable HILLMANELEONORA Attending Unavailable ANGELIQUE RADHA LUIS MIGUEL Primary Care Unavailab SHIV Romero Referring Unavailable ANGELIQUE RADHA LUIS MIGUEL Primary Care Unavailab le HILLMAN, ELEONORA YANE Referring Unavailable ANGELIQUE, RADHA LUIS MIGUEL Primary Care Unavailab le HILLMAN, ELEONORA YANE Referring Unavailable ANGELIQUE, RADHA LUIS MIGUEL Primary Care Unavailab le HILLMAN, ELEONORA YANE Referring Unavailable HILLMAN, ELEONORA YANE Referring Unavailable ANGELIQUE, RADHA SCHREIBERORY Primary Care Unavailab le ANGELIQUE, RADHA LUIS MIGUEL Primary Care Unavailab le SIVALINGAM, SRIDEANGELOAN Attending Unavailable LUIZAM, SRIHARAN Admitting Unavailable ANGELIQUE RADHAINGRID BOLANOS Primary Care Unavailab le ANGELIQUE, RADHA BOLANOS Referring Unavailab le UNWALA, YUMIKO J Attending Unavailable ANGELIQUERADHA Primary Care Unavailab le UNWALA, YUMIKO J Referring Unavailable ANGELIQUE, RADHA LUIS MIGUEL Primary Care Unavailab le UNWALA, YUMIKO J Referring Unavailable ANGELIQUE, RADHA LUIS MIGUEL Primary Care Unavailab le ANGELIQUE, RADHA BOLANOS Referring Unavailab le ANGELIQUE, RADHA LUIS MIGUEL Primary Care Unavailab le UNWALA, YUMIKO J Referring Unavailable Allergies Allergy Classification Reported Allergen(s) Allergy Type Date of Onset Reaction(s) Facility (5 sources) am[facility]OD[facility] drug allergy 05-12-2016 ankle edema [facility] Work Phone: (5 sources) amLODIPine; Translations: [AMLODIPINE] Drug Allergy 05-12-2016 Other: See Comments [facility] Medications Completed/Discontinued Medications Medication Drug Class(es) Dates Sig (Normalized) Sig (Original) aliskiren / valsartan (5 sources) Angiotensin 2 Receptor Janice, Renin Inhibitor Start: 04-23-2011 take 1 tablet by mouth once daily VALTURNA 300-320 MG TABS One tablet by mouth daily ALISKIREN-VALSARTA N [id number] Debbie Retana allopurinol 100 mg oral tablet (20 sources) Xanthine Oxidase Inhibitor Start: 08-02-2022 End: 06-07-2023 take 2 tablets by mouth once daily allopurinol (ZYLOPRIM) 100 mg tablet Take 2 tablets by mouth once daily. 180 tablet 3 06/07/2023 Active Problems Active Problems Problem Classification Problem Date Documented Da te Episodic/Chronic Disorders of lipid metabolism (20 sources) Hyperlipidemia; Translations: [Pure hypercholesterolemia] Onset: 1 04-23-2011 Chronic Esophageal disorders (20 sources) Gastroesophageal reflux disease; Translations: [Gastro-esophageal reflux disease without esophagitis] Onset: 7 11-09-2006 Chronic Essential hypertension (20 sources) Hypertensive disorder; Translations: [Essential hypertension] Onset: 1 04-23-2011 Chronic Genitourinary congenital anomalies (3 sources) Horseshoe kidney; 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, fused and horseshoe kidney] Onset: 4 Chronic Genitourinary symptoms and ill-defined conditions (5 sources) History of urinary tract infection; Translations: [Personal history of urinary (tract) infections] Onset: 3 Episodic Gout and other crystal arthropathies (20 sources) Gout; Translations: [Gout, unspecified] Onset: 7 12-07-2022 Chronic Heart valve disorders (20 sources) Non-rheumatic mitral regurgitation ; Translations: [Nonrheumatic mitral (valve) insufficiency] Onset: 3 12-07-2022 Chronic Hyperplasia of prostate (20 sources) Benign prostatic hypertrophy with outflow obstruction; Translations: [Benign prostatic hyperplasia with lower urinary tract symptoms] Onset: 6 03-11-2006 Chronic Noninfectious gastroenteritis (1 source) Gastroenteritis; Translations: [Noninfective gastroenteritis and colitis, unspecified] Episodic Nutritional deficiencies (1 source) Vitamin D deficiency, unspecified; Translations: [Vitamin D deficiency] Onset: 3 Chronic Other connective tissue disease (1 source) Personal history of other diseases of the musculoskeletal system and connective tissue; Translations: [Personal history of gout] Onset: 4 Episodic Other diseases of bladder and urethra (20 sources) Bladder neck obstruction; Translations: [Bladder-neck obstruction] Onset: 6 03-11-2006 Chronic Other endocrine disorders (3 sources) Hyperparathyroidism; Translations: [Hyperparathyroidism, unspecified] 10-20-2023 Chronic Other endocrine disorders (2 sources) Hyperparathyroidism, unspecified; Translations: [Hyperparathyroid (HCC)] Onset: 3 Chronic Other gastrointestinal disorders (1 source) Chronic constipation; Translations: [Other constipation] Episodic Other hematologic conditions (20 sources) Macrocytosis; Translations: [Other specified diseases of blood and blood-forming organs] Onset: 1 12-07-2022 Chronic Other infections; including parasitic (1 source) Personal history of other infectious and parasitic diseases; Translations: [Personal history of COVID-19] Episodic Other male genital disorders (1 source) Secondary erectile dysfunction; Translations: [Male erectile dysfunction, unspecified] Chronic Other male genital disorders (20 sources) Male erectile dysfunction, unspecified; Translations: [Impotence of organic origin] Onset: 0 06-26-2022 Chronic Other nervous system disorders (20 sources) Polyneuropathy; Translations: [Polyneuropathy, unspecified] Onset: 2 12-07-2022 Chronic Other nervous system disorders (20 sources) Neuropathy; Translations: [Polyneuropathy, unspecified] Onset: 0 12-07-2022 Chronic Other nervous system disorders (1 source) Other chronic pain; Translations: [Chronic midline low back pain without sciatica] Onset: 3 Chronic Other nervous system disorders (1 source) Polyneuropathy, unspecified; Translations: [Polyneuropathy] Onset: 3 Chronic Other nutritional; endocrine; and metabolic disorders (5 sources) Body mass index (BMI) 32.0-32.9, adult; Translations: [Body mass index (BMI) 32.0-32.9, adult] Onset: 3 08-21-2013 Chronic Other nutritional; endocrine; and metabolic disorders (20 sources) Obesity; Translations: [Obesity, unspecified] Onset: 3 12-07-2022 Chronic Other nutritional; endocrine; and metabolic disorders (2 sources) Obese class I; Translations: [Obesity, unspecified] Onset: 3 11-11-2023 Chronic Other nutritional; endocrine; and metabolic disorders (1 source) Other disorders of calcium metabolism; 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] Onset: 4 Chronic Other nutritional; endocrine; and metabolic disorders (1 source) Disorder of amino-acid metabolism, unspecified; 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)] Onset: 4 Chronic Other nutritional; endocrine; and metabolic disorders (1 source) Other obesity due to excess calories; Translations: [Class 1 obesity due to excess calories with body mass index (BMI) of 33.0 to 33.9 in adult, unspecified whether serious comorbidity present] Onset: 3 Chronic Other nutritional; endocrine; and metabolic disorders (1 source) Body mass index (BMI) 33.0-33.9, adult; Translations: [Class 1 obesity due to excess calories with body mass index (BMI) of 33.0 to 33.9 in adult, unspecified whether serious comorbidity present] Onset: 3 Chronic Peripheral and visceral atherosclerosis (4 sources) Intermittent claudication; Translations: [Peripheral vascular disease, unspecified] Onset: 3 12-07-2022 Chronic Unclassified (2 sources) Long-term drug therapy; Translations: [Other assisted (current) drug therapy] Onset: 1 04-23-2011 Unclassified (1 source) Chronic midline low back pain without sciatica; Translations: [Chronic midline low back pain without sciatica] Onset: 3 Unclassified (1 source) Kidney Problem Onset: 3 Past or Other Problems Problem Classification Problem Date Documented Da te Episodic/Chronic Calculus of urinary tract (12 sources) History of calculus of kidney; Translations: [Personal history of urinary calculi] Onset: 03-16-2023 Episodic Cardiac dysrhythmias (5 sources) Palpitations; Translations: [Palpitations] Onset: 04-23-2011 04-23-2011 Episodic Diabetes mellitus without complication (20 sources) Hyperglycemia; Translations: [Hyperglycemia, unspecified] Onset: 08-04-2017 Episodic Fluid and electrolyte disorders (20 sources) Dehydration; Translations: [Dehydration] Onset: 05-07-2022 12-07-2022 Episodic Other aftercare (3 sources) Other assisted (current) drug therapy; Translations: [Other assisted (current) drug therapy] Onset: 04-23-2011 04-23-2011 Episodic Other connective tissue disease (20 sources) Diastasis recti; Translations: [Separation of muscle (nontraumatic), other site] Onset: 12-07-2022 12-07-2022 Episodic Other gastrointestinal disorders (20 sources) Constipation; Translations: [Constipation, unspecified] Onset: 04-06-2019 12-07-2022 Episodic Other gastrointestinal disorders (1 source) Constipation, unspecified; Translations: [Constipation, unspecified constipation type] Onset: 12-07-2022 Episodic Other nervous system disorders (20 sources) Paresthesia of skin; Translations: [Disturbance of skin sensation] Onset: 12-07-2022 12-07-2022 Episodic Other nervous system disorders (20 sources) Burning feet; Translations: [Other disturbances of skin sensation] Onset: 02-22-2020 12-07-2022 Episodic Other screening for suspected conditions (not mental disorders or infectious disease) (3 sources) Patient encounter status; Translations: [Encounter for screening for diseases of the blood and blood-forming organs and certain disorders involving the immune mechanism] Onset: 06-07-2023 06-07-2023 Episodic Other upper respiratory infections (20 sources) Acute ethmoidal sinusitis; Translations: [Acute ethmoidal sinusitis, unspecified] Onset: 02-22-2020 12-07-2022 Episodic Residual codes; unclassified (20 sources) Edema of lower extremity; Translations: [Localized edema] Onset: 12-07-2022 12-07-2022 Episodic Residual codes; unclassified (1 source) Localized edema; Translations: [Edema of lower extremity] Onset: 12-07-2022 Episodic Spondylosis; intervertebral disc disorders; other back problems (20 sources) Low back pain; Translations: [Low back pain] Onset: 12-07-2022 12-07-2022 Episodic Unclassified (5 sources) Family history of ischemic heart disease; Translations: [Family history of ischemic heart disease and other diseases of the circulatory system] Onset: 08-31-2013 08-31-2013 Episodic Urinary tract infections (1 source) Urinary tract infection, site not specified; Translations: [Urinary tract infection without hematuria, site unspecified] Onset: 04-07-2023 Episodic Results Test Name Value Interpretation Reference Range Facil ity Vital Signs Date Time Vital Sign Value Performing Clinician Facility 10-21-2023 08:59-0500 Body weight 98.93 kg Eleonora Hillman MD Work Phone: [facility] 10-21-2023 08:59-0500 Diastolic blood pressure 58 mm[Hg] Eleonora Hillman MD Work Phone: [facility] 10-21-2023 08:59-0500 Heart rate 75 /min Eleonora Hillman MD Work Phone: [facility] 10-21-2023 08:59-0500 Systolic blood pressure 116 mm[Hg] Eleonora Hillman MD Work Phone: [facility] 06-07-2023 10:51-0400 Heart rate 62 /min Radha Merino MD Work Phone: [facility] 04-28-2023 09:08-0400 Body height 175.3 cm Tino Garcia MD Work Phone: [facility] 04-28-2023 09:08-0400 Body weight 97.07 kg Tino Garcia MD Work Phone: [facility] 03-15-2023 15:54-0400 Body height 175.3 cm Radha Merino MD Work Phone: [facility] 03-15-2023 15:54-0400 Body temperature 97.3 [degF] Radha Merino MD Work Phone: [facility] 03-15-2023 15:54-0400 Body weight 98.34 kg Radha Merino MD Work Phone: [facility] 03-15-2023 15:54-0400 Diastolic blood pressure 76 mm[Hg] Radha Merino MD Work Phone: [facility] 03-15-2023 15:54-0400 Heart rate 70 /min Radha Merino MD Work Phone: [facility] 03-15-2023 15:54-0400 Respiratory rate 18 /min Radha Merino MD Work Phone: [facility] 03-15-2023 15:54-0400 SaO2% (BldA) [Mass fraction] 99 % Radha Merino MD Work Phone: [facility] 03-15-2023 15:54-0400 Systolic blood pressure 130 mm[Hg] Radha Merino MD Work Phone: [facility] 12-07-2022 10:06-0500 Body height 175.3 cm Radha Merino MD Work Phone: [facility] 12-07-2022 10:06-0500 Body temperature 96.91 [degF] Radha Merino MD Work Phone: [facility] 12-07-2022 10:06-0500 Body weight 96.62 kg Radha Merino MD Work Phone: [facility] 12-07-2022 10:06-0500 Diastolic blood pressure 70 mm[Hg] Radha Merino MD Work Phone: [facility] 12-07-2022 10:06-0500 Heart rate 73 /min Radha Merino MD Work Phone: [facility] 12-07-2022 10:06-0500 Respiratory rate 16 /min Radha Merino MD Work Phone: [facility] 12-07-2022 10:06-0500 SaO2% (BldA) [Mass fraction] 98 % Radha Merino MD Work Phone: [facility] 12-07-2022 10:06-0500 Systolic blood pressure 138 mm[Hg] Radha Merino MD Work Phone: [facility] 06-24-2022 10:21-0400 Body height 175.3 cm Radha Merino MD Work Phone: [facility] 06-24-2022 10:21-0400 Body temperature 97.9 [degF] Radha Merino MD Work Phone: [facility] 06-24-2022 10:210400 Body weight 96.71 kg Radha Merino MD Work Phone: [facility] 06-24-2022 10:21-0400 Diastolic blood pressure 78 mm[Hg] Radha Merino MD Work Phone: [facility] 06-24-2022 10:21-0400 Heart rate 68 /min Radha Merino MD Work Phone: [facility] 06-24-2022 10:21-0400 Respiratory rate 18 /min Radha Merino MD Work Phone: [facility] 06-24-2022 10:21-0400 SaO2% (BldA) [Mass fraction] 98 % Radha Merino MD Work Phone: [facility] 06-24-2022 10:21-0400 Systolic blood pressure 118 mm[Hg] Radha Merino MD Work Phone: [facility] 06-08-2017 14:53-0400 BMI (Body Mass Index) 32.42 kg/m2 [facility] Work Phone: 06-08-2017 14:53-0400 BP Diastolic 80 mm[Hg] [facility] Work Phone: 06-08-2017 14:53-0400 BP Systolic 136 mm[Hg] [facility] Work Phone: 06-08-2017 14:53-0400 Pulse (Heart Rate) 62 /min [facility] Work Phone: 06-08-2017 14:53-0400 Weight 102.51 kg [facility] Work Phone: 05-26-2016 08:27-0400 BP Diastolic 68 mm[Hg] Kimmy Israel RN [facility] Work Phone: 05-26-2016 08:27-0400 BP Systolic 128 mm[Hg] Kimmy Israel RN [facility] Work Phone: 05-26-2016 08:27-0400 Pulse (Heart Rate) 64 /min Kimmy Israel RN [facility] Work Phone: 05-26-2016 08:27-0400 Respiratory Rate 20 /min Kimmy Israel RN [facility] Work Phone: 05-26-2016 08:27-0400 Weight 101.42 kg Kimmy Israel RN [facility] Work Phone: 05-12-2016 10:43-0400 BMI (Body Mass Index) 31.85 kg/m2 Kimmy Israel RN [facility] Work Phone: 05-12-2016 10:43-0400 BSA (Body Surface Area) 2.18 m2 Kimmy Israel RN [facility] Work Phone: 05-12-2016 10:43-0400 Height 177.8 cm Kimmy Israel RN [facility] Work Phone: 08-21-2013 10:04-0400 Heart rate 64 /min [facility] Work Phone: 08-21-2013 10:04-0400 Heart rate 394 ms [facility] Work Phone: Encounters Encounter Date Encounter Type Care Provider Facility Start: 01-20-2024 End: 01-20-2024 ambulatory Eleonora Hillman MD Work Phone: Endocrine Surgery Procedures Date Procedure Procedure Detail Performing Clinician Start: 10-20-2023 Dxa bone density evi dy 1/> sites axial skel Eleonora Hillman MD Work Phone: Start: 04-28-2023 Urnls dip stick/tabl et rgnt auto w/o microscopy Tino Garcia MD Work Phone: Start: 03-24-2023 Ct abdomen & pelvis w/o contrast material Yumiko Hernandez MD Work Phone: Start: 03-16-2023 AMMONIA BLD Portillo B Friend DO Work Phone: Start: 03-16-2023 Comprehensive metabo lic 2000 panel - Serum or Plasma Portillo B Friend DO Work Phone: Start: 03-16-2023 Hemoglobin A1c/Hemoglobin.total in Blood Portillo B Friend DO Work Phone: Start: 03-16-2023 HIV Portillo B Friend DO Work Phone: Start: 02-16-2023 CREATINE BLOOD Other (H ist) Work Phone: Start: 06-24-2022 Adult depression scr eening assessment Radha Merino MD Work Phone: Start: 06-08-2017 End: 06-08-2017 Dietary management education, guidance, and counseling Crissy Perry Start: 06-08-2017 End: 06-08-2017 LUIZ Javier NP Work Phone: Start: 06-08-2017 End: 06-08-2017 Follow Up Appt 1 year Karsten Javier NP Work Phone: Start: 05-26-2016 End: 05-26-2016 Follow Up BP Check Amari Forman MD Work Phone: Start: 05-12-2016 End: 06-02-2017 LUIZ Forman MD Work Phone: Start: 05-12-2016 End: 06-02-2017 Follow Up Appt 1 year Sherrill Sanchez Work Phone: Start: 03-04-2015 End: 03-04-2015 LUIZ Forman MD Work Phone: Start: 03-04-2015 End: 03-04-2015 Follow Up Appt 1 year Sherrill Sanchez Work Phone: Start: 08-21-2013 End: 08-21-2013 LUIZ Forman MD Work Phone: Start: 08-21-2013 End: 08-21-2013 Follow Up Appt 1 year Sherrill Sanchez Work Phone: Start: 08-21-2013 End: 09-22-2013 Stress Echocardiogram (treadmill) Amari Forman MD Work Phone: Start: 08-15-2012 End: 07-12-2013 *Hepatic Function Panel Aries tolliver MD Start: 08-15-2012 End: 08-15-2012 Follow Up Appt 1 year Aries khoury MD Start: 08-15-2012 End: 07-12-2013 Lipid panel [AGGREGATE] Aries tolliver MD Plan of Treatment Date Care Activity Detail Author Start: 06-07-2033 Urine microalbumin profile [facility] Start: 10-22-2026 Diabetes Screening Diabetes Screening [facility] Start: 09-30-2026 Diabetes Screening Diabetes Screening [facility] Start: 06-08-2026 DIABETES SCREEN DIABETES SCREEN [facility] Start: 06-08-2026 Diabetes Screening Diabetes Screening [facility] Start: 03-16-2026 DIABETES SCREEN DIABETES SCREEN [facility] Start: 12-10-2025 DIABETES SCREEN DIABETES SCREEN [facility] Start: 10-09-2025 DIABETES SCREEN DIABETES SCREEN [facility] Start: 07-16-2024 End: 08-15-2024 25-hydroxyvitamin D3 [Mass/volume] in Serum or Plasma VITAMIN D 25 HYDROXY Lab Routine Hyperparathyroidism (HCC) Expected: 07/16/2024, Expires: 08/15/2024 [facility] Work Phone: Immunizations Immunization Date Immunization Notes Care Provider Fa cility 06-07-2023 tetanus toxoid, redu daisy diphtheria toxoid, and acellular pertussis vaccine, adsorbed Radha Merino MD Work Phone: [facility] 09-08-2022 influenza, seasonal, injectable Radha Merino MD Work Phone: [facility] 09-08-2022 influenza virus vacc ine, unspecified formulation Ct (I-Stat) Work Phone: [facility] 09-09-2020 Seasonal, quadrivale nt, recombinant, injectable influenza vaccine, preservative free Radha Merino MD Work Phone: [facility] 08-30-2019 influenza, high dose seasonal, preservative-free Radha Merino MD Work Phone: [facility] 08-30-2019 pneumococcal conjuga te vaccine, 13 valent Radha Merino MD Work Phone: [facility] 08-17-2018 AS03 adjuvant Radha Merino MD Work Phone: [facility] 12-30-2009 novel influenza-H1N1 -09, preservative-free, injectable Radha Merino MD Work Phone: [facility] Payers Date Payer Category Payer Private Health Insurance [facility] AARP SUPPLEMENT [id number] 2014-Present [phone] [address] [place] [address] Indemnity [id number] 2014 Private Health Insurance [facility] AARP SUPPLEMENT [id number] 2014-Present [phone] [address] [place] [address] Indemnity [id number] 2014 Unknown [id number] 2007 Medicare MEDICARE MEDICAR E A AND B [id number] 2007-Present [phone] [address] [address] [place] [address] Medicare [id number] 2007 Medicare [id number] 2007 Medicare [id number] Social History Date Type Detail Facility Start: 06-24-2022 End: 12-07-2022 Tobacco smoking status NHIS Never smoked tobacco [facility] Start: 05-18-2016 End: 12-15-2023 Alcohol intake Current drinker of alcohol (finding) [facility] Start: 1940 Sex Assigned At Not on file [facility] Start: 05-05-2022 End: 06-24-2022 Exposure to SARS-CoV-2 (event) Not sure [facility] Start: 06-24-2022 History SDOH Alcohol Frequency 2 [facility] Start: 06-24-2022 History SDOH Alcohol Std Drinks 1 [facility] Start: 06-24-2022 History SDOH Social Connections Phone 5 [facility] Start: 06-24-2022 History SDOH Social Connections Living 3 [facility] Start: 06-24-2022 End: 12-07-2022 Tobacco use and exposure Smokeless tobacco non-user [facility] Start: 12-07-2022 Alcohol Comment occassionally [facility] Start: 04-05-2023 End: 06-07-2023 History of Social function [facility] Start: 04-05-2023 End: 06-07-2023 Social connection and isolation panel [facility] Do you belong to any clubs or organizations such as anabaptist groups, unions, fraternal or athletic groups, or school groups? No [facility] Are you now , , , , never or living with a partner? [facility] How often to you hav e a drink containing alcohol? 2-3 time sa week [facility] How many standard dr inks containing alcohol do you have on a typical day? 1 or 2 [facility] How often do you hav e 6 or more drinks on 1 occasion? Never [facility] How hard is it for y ou to pay for the very basics like food, housing, medical care, and heating Somewhat hard [facility] Adult Depression Screening Assessment 0 [facility] Work Phone: Do you feel stress - tense, restless, nervous, or anxious, or unable to sleep at night because your mind is troubled all the time - these days [OSQ] Not at all [facility] (I/We) worried wheth er (my/our) food would run out before (I/we) got money to buy more. Never true [facility] Start: 06-07-2023 Education 17 [facility] Start: 1940 Sex Assigned At Male [facility] [facility] Start: 06-07-2023 Sexual orientation Heterosexual (finding) [facility] How often to you hav e a drink containing alcohol? Monthly or less [facility] Medical Equipment Procedure Code Equipment Code Equipment Origin al Text Equipment Identifier Dates Bard Inlay Optim a Stent Kit [id number] permanente [facility] Start: 04-21-2023 Stent Inlay Opti ma 6fr 28cm [id number] Start: 04-21-2023 Clinical Notes 06-24-2022 to 01-20-2024 Eleonora Hillman MD - 01/20/2024 10:03 AM ESTTelephone Encounter - Sasha Rogers, RN - 12/31/2023 4:22 PM Eleonora Mitchell MD - 10/21/2023 9:40 AM ESTPatient InstructionsPatient Instructions Note Date & Type Note Facility 01-20-2024 History of Present illness Narrative [facility] Endocrinology and Metabolism [place] Department of Endocrine Surgery Eleonora Hillman M.D. [address] [place] [address] Mr. Kerwin Graham's postoperative visit was conducted via telephone call. He underwent a subtotal parathyroidectomy on 12/24/23. On the morning following surgery, his serum calcium measured 8.9 with a corresponding PTH of 39. He has been maintained on 1.2 grams of oral calcium daily. He denies any hypocalcemic symptoms. Component Latest Ref Rng & Units 01/18/2024 Calcium 8.5 - 10.2 mg/dL 9.4 PTH, Intact 15 - 65 pg/mL 64 As per the patient, his transverse cervical incision has healed quite well without evidence of infection or seroma. His voice is normal. Mr. Graham has done well since his surgery. I have given him a requisition to have his calcium and PTH checked in six months along with vitamin D levels. I appreciate being involved in the care of your patient, and please feel free to contact me should you have any questions or concerns. ELEONORA HILLMAN M.D. CC: Charlene Hein, MAKENNA Merino M.D. documented in this encounter [facility] 12-31-2023 Miscellaneous Notes Called pt and left a voice mail to see how pt is doing after undergoing Subtotal parathyroidectomy and cryopreservation with Dr. Hillman on 12/24/23. Reminded of post-op follow-up appointment and instruction was given to have labs drawn prior to the appointment. Pt to call for questions. Sasha Rogers RN documented in this encounter [facility] 12-25-2023 Note HNO ID: [id number] Author: ANTIONE MURPHY MD Service: Endocrine Surgery Author Type: Physician Type: Progress Notes Filed: 12/25/2023 07:10 Note Text: ENDOCRINE SURGERY INPATIENT PROGRESS NOTE Name: Kerwin Graham Date: December 25, 2023 POD# 1 S/P parathyroidectomy S: Recovering appropriately. No dysphagia. No dysphonia. No paresthesias. No signs of hematoma. O: PHYSICAL EXAM: BP 118/60 Pulse 78 Temp 36.8 ?C (98.2 ?F) (Oral) Resp 17 Ht 175.3 cm (5' 9 ) Wt 102.5 kg (225 lb 15.5 oz) SpO2 94% BMI 33.37 kg/m? General Appearance: In no acute distress. Well appearing. Neuro: Alert and oriented x3. Neck: soft, incision clean/dry/intact, no evidence of deep neck hematoma Abdomen: Soft. Non-distended. Non-tender. No guarding or rebound. Extremities: Warm and well perfused. Intake/Output Summary (Last 24 hours) at 12/25/2023 0709 Last data filed at 12/25/2023 0600 Gross per 24 hour Intake 1500 ml Output 5 ml Net 1495 ml ASSESSMENT: Kerwin Graham is POD1 and recovering well. PLAN of Care: - Regular diet - No SQH - SCDs - Multimodal pain regimen, minimize narcotics - Follow-up PTH and Ca in AM - Discharge this morning Antione Murphy MD [phone] Clinical Associate [facility] [place], Department of Endocrine Surgery [facility] 12-24-2023 Note HNO ID: [id number] Author: KATIE INFANTE MD Service: Endocrine Surgery Author Type: Physician Type: Progress Notes Filed: 12/24/2023 15:19 Note Text: . ENDOCRINE SURGERY PROGRESS NOTE NAME: Kerwin Graham 12/24/2023 8:18 AM Assessment and Plan: Kerwin Graham is a 83 year old male w/ PMHx of HTN, MVR, reflux, hypothyroidism, now s/p PARATHYROIDECTOMY on 12/24/2023. Subtotal parathyroidectomy: LL remnant. Recovering appropriately. No dysphagia. No dysphonia. No paresthesias. No signs of hematoma. - Regular diet - No SQH - SCDs - multimodal pain regimen, minimize narcotics - Discharge in AM - Follow-up PTH and Ca in AM Katie Infante MD, PhD Clinical Associate [facility]ocrine [facility] Met[facility] [place] Department of Endocrine Surgery [id number] Patient Active Hospital Problem List: Obesity, Class I, BMI 30-34.9 (11/11/2023) Subjective: Interval Events: No acute events. Pain: controlled. No other complaints. Physical Exam: BP 131/62 Pulse 73 Temp 36.4 ?C (97.5 ?F) (Temporal) Resp 19 SpO2 91% GENERAL/NEURO: Awake, Alert, NAD HEENT: Normocephalic, Atraumatic; incision c/d/I without signs of hematoma CHEST: Unlabored breathing ABDOMEN: Soft, Non-tender EXTREMITIES: warm, well perfused Labs: Calcium, Total Date Value Ref Range Status 10/22/2023 9.8 8.5 - 10.2 mg/dL Final Magnesium Date Value Ref Range Status 09/30/2023 2.0 1.7 - 2.3 mg/dL Final No results found for: P No results found for: TSH PTH, Intact Date Value Ref Range Status 10/22/2023 59 15 - 65 pg/mL Final [facility] 12-24-2023 Note HNO ID: [id number] Author: ALEXI SINGLETON, ? Service: ? Author Type: ? Type: Procedures Filed: 12/28/2023 11:25 Note Text: (No note.) [facility] 12-24-2023 Note HNO ID: [id number] Author: ABIGAIL GODINEZ APRN.SCHEDULE HANGER Service: ? Author Type: Nurse Street And Building Decorator Type: Anesthesia Procedure Notes Filed: 12/24/2023 07:32 Note Text: ANESTHESIOLOGY PROCEDURE NOTE Airway General Information Procedure Start Time/Medication Administration: 12/24/2023 7:23 AM Patient location during procedure: OR Staffing SCHEDULE HANGER: Abigail Godinez APRN.SCHEDULE HANGER Indications and Patient Condition Indications for airway management: anesthesia Preoxygenated: yes anesthesia circuit Method: sleep Difficult Mask: No Final Airway Details Final airway type: endotracheal airway Final Endotracheal Airway: ETT Cuffed: yes Successful intubation technique: video laryngoscopy Devices used: Ashby Endotracheal tube insertion site: oral Blade size: #4 ETT size (mm): 7.5 Measured from: lips Measurement (cm): 22 Placement verified by: capnometry Cormack-Lehane Classification: grade I - full view of glottis Number of attempts at approach: 1 Airway not difficult SIGNATURE: Abigail Ruiz APRN.SCHEDULE HANGER PATIENT NAME: Kerwin Graham DATE: December 24, 2023 TIME: 7:32 AM CSN: [id number] [facility] 12-08-2023 Note HNO ID: [id number] Author: RADHA MERINO MD Service: ? Author Type: Physician Type: Progress Notes Filed: 12/08/2023 13:07 Note Text: This note was created using NoteWriter. Subjective Kerwin Graham is a 83 year old male. Kerwin presents today for follow-up for multiple medical problems. See list. His chronic medical problems are stable. His blood pressure remains under good control on his current regimen. He has no new complaints today. He is doing well. Review of Systems Constitutional: Negative. HENT: Negative. Eyes: Negative. Respiratory: Negative. Cardiovascular: Negative. Gastrointestinal: Negative. Endocrine: Negative. Genitourinary: Negative. Musculoskeletal: Negative. Skin: Negative. Allergic/Immunologic: Negative. Neurological: Negative. Hematological: Negative. Psychiatric/Behavioral: Negative. Objective BP 128/74 (BP Site: Left Arm, BP Position: Sitting, BP Cuff Size: Regular Adult) Pulse 70 Temp 36.3 ?C (97.3 ?F) (Temporal) Resp 18 Ht 175.3 cm (5' 9 ) Wt 103.9 kg (229 lb) SpO2 97% BMI 33.82 kg/m? Physical Exam Vitals reviewed. Constitutional: Appearance: Normal appearance. HENT: Head: Normocephalic and atraumatic. Nose: Nose normal. Eyes: Extraocular Movements: Extraocular movements intact. Pupils: Pupils are equal, round, and reactive to light. Cardiovascular: Rate and Rhythm: Normal rate and regular rhythm. Pulmonary: Effort: Pulmonary effort is normal. Breath sounds: Normal breath sounds. Abdominal: General: Bowel sounds are normal. Palpations: Abdomen is soft. Musculoskeletal: General: Normal range of motion. Cervical back: Normal range of motion and neck supple. Skin: General: Skin is warm and dry. Capillary Refill: Capillary refill takes less than 2 seconds. Neurological: General: No focal deficit present. Mental Status: He is alert and oriented to person, place, and time. Mental status is at baseline. Psychiatric: Mood and Affect: Mood normal. Behavior: Behavior normal. Assessment and Plan Encounter Diagnosis ICD-10-CM 1. Pure hypercholesterolemia E78.00 LIPID PANEL BASIC HEPATIC FUNCTION PNL 2. Hypertension, benign I10 3. Paresthesia of both hands R20.2 4. Impaired glucose tolerance R73.02 5. Gout involving toe of right foot, unspecified cause, unspecified chronicity M10.9 6. Erectile dysfunction, unspecified erectile dysfunction type N52.9 Continue present medications. Check labs as above. [facility] patient. Follow-up in 6 months. Radha Merino MD [facility] 12-08-2023 Note HNO ID: [id number] Author: MARY FORD LPN Service: ? Author Type: LICENSED NURSE Type: Progress Notes Filed: 12/08/2023 13:07 Note Text: Patient is in office today for 6 month exam. No current complaints or concerns Mary FordTATIANA December 08, 2023 10:43 AM [facility] 12-03-2023 Note HNO ID: [id number] Author: CHARLENE HEIN APRN.MAKENNA Service: ? Author Type: Nurse Practitioner Type: Progress Notes Filed: 12/03/2023 10:38 Note Text: This is a virtual visit using HIPAA compliant video platform. It required patient-provider interaction for the medical decision making as documented below. I have communicated my name and active licensure. The patient's identity and physical location were verified at the time of this visit. Either the patient or their legal printing supplies sales representative has been informed of the risks and benefits of -- and alternatives to -- treatment through a remote evaluation and consents to proceed with the evaluation remotely. 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 L - no stones/hydro (1 cm stone seen on CT not visualized). Horseshoe kidney -New CHARBEL in 6 months to monitor stone burden -Continue potassium citrate 10 meq TID. K/creat wnl in Dec -Suspect holiday eating played a role in higher sodium and oxalates -Maintain fluids enough to produce 2.5-3L urine output daily -Increase citrus intake -Low oxalate diet, combine with calcium source -Limit sodium intake to 8009-0256 mg daily -Parathyroid surgery as scheduled with Dr. Hillman -[place] 24 hour testing in 6 months A 24 hr urine test kit will be arriving in the next 4 months. If the kit does not arrive in that time frame please call the office ([phone]) or My Chart and let us know. We use a 24 hour urine test from a company called [employer]. In general, insurance typically covers the cost of the test, but occasionally they do not. Insurance coverage may also change year to year, so it is up to you, the patient, to check with your insurance company to see if the test is covered. You will not be billed for the test until it is completed, so it's ok to hang onto the kit until you have that information. If your insurance does not cover the cost, we do have another 24 hour testing option at [facility] that is typically covered. It is not as comprehensive as the [facility] test, so this why it is not our primary choice for testing, but if [facility]olink is not covered, please let our office know so we can get you set up with the [facility] option. You DO NOT need to stop Vit C and other supplements prior to testing even though the [facility] instructions say to do so. If you are on an antibiotic, then you should wait at least 1 week after you complete the course of antibiotic to do the 24 hour urine test You should also not test during an active stone event or recovery following surgery - wait until you are back to your normal dietary habits Please do not change your dietary habits or increase your fluid intake for testing alone. We are trying to get an accurate picture of what your risk factors are! Reviewed recent 24 hour urine study and discussed strategies for stone prevention: Low urine volume - improved - We recommend increasing your fluid intake to 2.5-3L/day or 80-100 ounces/day. Not only increase fluids during the day but also drink 1-2 glasses of water before bed, get up at least once thru the night to urinate and then drink another glass of water before returning to sleep. Hypocitraturia (low urine citrate) - improving - Recommend increasing dietary citrate intake. Adding more fruits AND vegetables to your diet; in particular citrus fruits like jr, limes, oranges, melons and tomatoes. Aciduria (low urine pH) - improved - Recommend eating an alkaline diet. 75-80% of foods consumed should provide an alkaline load. Fruits and vegetables are great options! Hyperoxaluria (high urine oxalates) - worse - recommend a low oxalate diet, adding calcium rich foods at each meal Hypernatriuria (high urine sodium) - worse - we recommend a low sodium diet <2000mg/d. Read food labels, choose low sodium options, avoid canned, frozen or boxed meals, eat more fresh foods RTC in 6 months w/ CHARBEL, and Litholink. Medical Decision Making: Problems: Moderate: 2+ stable chronic illnesses Data: Unique test result(s) reviewed: 3+ Unique test(s) ordered: 2 Risk: Moderate: Drug management Medical Decision Making Level: 4 - Moderate Charlene Hein APRN.SKIING TEACHER ======= Chief complaint: Kidney stones Kerwin Graham is a 83 year old male who presents today for a Kidney stone management and prevention counseling. s/p L URS w/ Dr. Garcia on 04/21/23. Stent removal 04/28/23. Pt currently: no fever, no chills, no nausea, no vomiting, no dysuria, no gross hematuria, no renal colic Current stone meds: Allopurinol 200, prescription omega 3 (2 gm), valsartan/hctz 320/25 mg Other Uro (more content not included)... [facility] 11-25-2023 Note HNO ID: [id number] Author: LAVERNE CHAMBERLAIN RDMS Service: ? Author Type: Beef Trimmer Type: Progress Notes Filed: 11/25/2023 16:28 Note Text: Radiology Service Progress Note PATIENT NAME: Kerwin Graham DATE OF SERVICE: November 25, 2023 TIME: 4:28 PM PATIENT IDENTITY VERIFICATION COMPLETED USING TWO (2) IDENTIFIERS: Name and Date of confirmed by patient verbally. FALL SCREENING: Has the patient had 2 falls in the last year or 1 fall with injury or currently using an Ambulatory Assistive Device (Walker, Cane, Wheelchair, Crutches, etc.)? No PATIENT GENDER DATA: Male PATIENT RELEVANT IMPLANT DATA REVIEWED: Not Applicable RADIOLOGY DEPARTMENT: Ultrasound PERIPHERAL IV DATA: Not applicable SIGNED BY: Laverne Chamberlain RDMS November 25, 2023 4:28 PM [facility] 10-21-2023 Note HNO ID: [id number] Author: Eleonora Hillman MD Service: ? Author Type: Physician Type: Progress Notes Filed: 10/21/2023 9:39 AM Note Text: [facility] Endocrinology and Metabolism [place] Department of Endocrine Surgery Eleonora Hillman M.D. [address] [place] [address] Mr. Kerwin Graham was seen in the office today in consultation for primary hyperparathyroidism. The patient was referred by Charlene Hein, and my findings and recommendations will be communicated by way of the shared medical record. Thank you for referring your patient, Mr. Graham, for evaluation of primary hyperparathyroidism. As you know, he is an 83-year-old male who was incidentally found to have an elevated calcium level during workup for kidney stones. Subsequent biochemical work-up also revealed elevated PTH levels. The diagnosis of primary hyperparathyroidism was made, and he was referred here for further evaluation. The patient's past medical history is significant for recurrent nephrolithiasis, hypertension, mitral regurgitation, GERD, gout, and BPH. His medications include potassium citrate, ursodiol, omeprazole, simvastatin, allopurinol, valsartan-HCTZ, aspirin, and vitamins. The patient's past surgical history is significant for excision of a BCC and lithotripsy. The patient denies any family history of hypercalcemia, hyperparathyroidism, or kidney stones. The patient denies any history of ionizing radiation to the head or neck. In terms of symptoms related to primary hyperparathyroidism, he has recurrent kidney stones. He also has constipation and lower extremity pain. - PARATHYROID DATA SHEET Latest Ref Rng AND Units 06/08/2023 09/30/2023 CALCIUM 8.5 - 10.2 mg/dL 10.3 (H) 9.5 CALCIUM IONIZED, WHOLE BLOOD 1.08 - 1.30 mmol/L 1.33 (H) PTH, INTACT 15 - 65 pg/mL 96 (H) CREATININE 0.73 - 1.22 mg/dL 1.02 1.05 VITAMIN D 25 HYDROXY 31.0 - 80.0 ng/mL 34.0 He is undergoing a parathyroid scan today. His most recent bone density scan performed on 10/20/23 revealed a T-score of -1.1 of the left forearm, which was his lowest T-score, consistent with osteopenia. On physical examination, Mr. Graham is a healthy appearing man in no acute distress. Inspection of the head and neck reveals no obvious abnormalities. Palpation of the neck reveals no thyromegaly or cervical lymphadenopathy. Ultrasound examination was performed in the office. This revealed a thyroid gland that was overall normal in size with a fine uniform echogenicity. There were no nodules. No areas were seen to suggest an abnormal parathyroid gland. In summary, Mr. Graham is an 83-year-old male with biochemical studies that show clear evidence of primary hyperparathyroidism. Given his history of kidney stones, as well as other manifestations of primary hyperparathyroidism, I feel that he would be best served by undergoing a parathyroid exploration. The indications, risks, benefits, and alternatives of a parathyroid exploration were explained to the patient in detail. I will keep you informed as to his perioperative course. I appreciate being involved in the care of your patient, and please feel free to contact me should you have questions or concerns. ELEONORA HILLMAN M.D. CC: Charlene Hein, MAKENNA Merino M.D. [facility] 10-21-2023 History of Present illness Narrative [facility] Endocrinology and Metabolism [place] Department of Endocrine Surgery Eleonora Hillman M.D. [address] [place] [address] Mr. Kerwin Graham was seen in the office today in consultation for primary hyperparathyroidism. The patient was referred by Charlene Hein, and my findings and recommendations will be communicated by way of the shared medical record. Thank you for referring your patient, Mr. Graham, for evaluation of primary hyperparathyroidism. As you know, he is an 83-year-old male who was incidentally found to have an elevated calcium level during workup for kidney stones. Subsequent biochemical work-up also revealed elevated PTH levels. The diagnosis of primary hyperparathyroidism was made, and he was referred here for further evaluation. The patient's past medical history is significant for recurrent nephrolithiasis, hypertension, mitral regurgitation, GERD, gout, and BPH. His medications include potassium citrate, ursodiol, omeprazole, simvastatin, allopurinol, valsartan-HCTZ, aspirin, and vitamins. The patient's past surgical history is significant for excision of a BCC and lithotripsy. The patient denies any family history of hypercalcemia, hyperparathyroidism, or kidney stones. The patient denies any history of ionizing radiation to the head or neck. In terms of symptoms related to primary hyperparathyroidism, he has recurrent kidney stones. He also has constipation and lower extremity pain. - PARATHYROID DATA SHEET Latest Ref Rng & Units 06/08/2023 09/30/2023 CALCIUM 8.5 - 10.2 mg/dL 10.3 (H) 9.5 CALCIUM IONIZED, WHOLE BLOOD 1.08 - 1.30 mmol/L 1.33 (H) PTH, INTACT 15 - 65 pg/mL 96 (H) CREATININE 0.73 - 1.22 mg/dL 1.02 1.05 VITAMIN D 25 HYDROXY 31.0 - 80.0 ng/mL 34.0 He is undergoing a parathyroid scan today. His most recent bone density scan performed on 10/20/23 revealed a T-score of -1.1 of the left forearm, which was his lowest T-score, consistent with osteopenia. On physical examination, Mr. Graham is a healthy appearing man in no acute distress. Inspection of the head and neck reveals no obvious abnormalities. Palpation of the neck reveals no thyromegaly or cervical lymphadenopathy. Ultrasound examination was performed in the office. This revealed a thyroid gland that was overall normal in size with a fine uniform echogenicity. There were no nodules. No areas were seen to suggest an abnormal parathyroid gland. In summary, Mr. Graham is an 83-year-old male with biochemical studies that show clear evidence of primary hyperparathyroidism. Given his history of kidney stones, as well as other manifestations of primary hyperparathyroidism, I feel that he would be best served by undergoing a parathyroid exploration. The indications, risks, benefits, and alternatives of a parathyroid exploration were explained to the patient in detail. I will keep you informed as to his perioperative course. I appreciate being involved in the care of your patient, and please feel free to contact me should you have questions or concerns. ELEONORA HILLMAN M.D. CC: MAKENNA Muñiz M.D. documented in this encounter [facility] 10-21-2023 Note HNO ID: [id number] Author: Ross Vargas RT(R) Service: Nuclear Medicine Author Type: Technologist Type: Progress Notes Filed: 10/21/2023 10:36 AM Note Text: RADIOLOGY SERVICE PROGRESS NOTE SERVICE DATE: 10/21/2023 SERVICE TIME: 7:12 AM PATIENT IDENTITY VERIFICATION COMPLETED USING TWO (2) STANDARD IDENTIFIERS: Name and Date of confirmed by patient verbally FALL SCREENING: Has the patient had 2 falls in the last year or 1 fall with injury or currently using an Ambulatory Assistive Device (Walker, Cane, Wheelchair, Crutches, etc.)? No PATIENT GENDER DATA: .male ALLERGIES: Reviewed and unchanged MEDICATIONS REVIEWED: Yes PATIENT RELEVANT IMPLANT DATA REVIEWED: Not Applicable CREATININE: Creatinine Date Value Ref Range Status 09/30/2023 1.05 0.73 - 1.22 mg/dL Final 06/08/2023 1.02 0.73 - 1.22 mg/dL Final 03/16/2023 1.03 0.73 - 1.22 mg/dL Final Estimated Glomerular Filtration Rate Date Value Ref Range Status 09/30/2023 71 >=60 mL/min/1.73m? Final Comment: Estimated Glomerular Filtration Rate (eGFR) is calculated using the 2020 CKD-EPI creatinine equation. This equation utilizes serum creatinine, sex, and age as parameters. The creatinine assay has traceable calibration to isotope dilution-mass spectrometry. Refer to KDIGO guidelines for clinical interpretation. In patients with unstable renal function, e.g. those with acute kidney injury, the eGFR may not accurately reflect actual GFR. P.O.C.T. RESULTS: N/A October 21, [address] PERFORMED: No IV SITE: Ambulatory: A peripheral IV was started in the Right hand with a Angio cath: 22 gauge. POST EXAM PIV STATUS: Discontinued PROCEDURE TYPE: NM Parathyroid: 393 microcuries of Nal 123 capsules was administered orally at 0710. 36.0 mCi of Tc99m Sestamibi was injected IV at 1030. ADMINISTRATION TIME: PATIENT DISCHARGED TO: Ambulatory patient, left [place] department area. A Diagnostic radioactive procedure has taken place, with no further precautions necessary other than routine body substance precautions. More information regarding radiation safety can be found using this link: [email or web address] SIGNATURE: RT Lalitha(R) PATIENT NAME: Kerwin Graham DATE: October 21, 2023 TIME: 7:12 AM PAGER/CONTACT #: [facility] 10-21-2023 Instructions Elzbieta Tsang OCCA - 10/21/2023 8:56 AM EST Thank you for choosing the [facility] Department of Endocrinology, Diabetes and Metabolism. Did you know that you need to call 48 hours in advance of your scheduled visit, if you are unable to make your appointment? [facility] thanks you for your commitment, because patients not showing to their appointment results in a lost opportunity for patients to receive [facility] at the [facility]. To Cancel an appointment, please choose one of the following: - Call the Appointment Call Center at [phone] - From [facility], Go to Appointments - Cancel Appts If cancelling, consider your need to reschedule to prevent further delays in your care. To Schedule an appointment, please choose one of the following: - Call the Appointment Call Center at [phone] - From [facility], Go to Appointments - Request an Appt documented in this encounter [facility] 10-21-2023 History of Present illness Narrative RADIOLOGY SERVICE PROGRESS NOTE SERVICE DATE: 10/21/2023 SERVICE TIME: 7:12 AM PATIENT IDENTITY VERIFICATION COMPLETED USING TWO (2) STANDARD IDENTIFIERS: Name and Date of confirmed by patient verbally FALL SCREENING: Has the patient had 2 falls in the last year or 1 fall with injury or currently using an Ambulatory Assistive Device (Walker, Cane, Wheelchair, Crutches, etc.)? No PATIENT GENDER DATA: .male ALLERGIES: Reviewed and unchanged MEDICATIONS REVIEWED: Yes PATIENT RELEVANT IMPLANT DATA REVIEWED: Not Applicable CREATININE: Creatinine Date Value Ref Range Status 09/30/2023 1.05 0.73 - 1.22 mg/dL Final 06/08/2023 1.02 0.73 - 1.22 mg/dL Final 03/16/2023 1.03 0.73 - 1.22 mg/dL Final Estimated Glomerular Filtration Rate Date Value Ref Range Status 09/30/2023 71 >=60 mL/min/1.73m Final Comment: Estimated Glomerular Filtration Rate (eGFR) is calculated using the 2020 CKD-EPI creatinine equation. This equation utilizes serum creatinine, sex, and age as parameters. The creatinine assay has traceable calibration to isotope dilution-mass spectrometry. Refer to KDIGO guidelines for clinical interpretation. In patients with unstable renal function, e.g. those with acute kidney injury, the eGFR may not accurately reflect actual GFR. P.O.C.T. RESULTS: N/A October 21, [address] PERFORMED: No IV SITE: Ambulatory: A peripheral IV was started in the Right hand with a Angio cath: 22 gauge. POST EXAM PIV STATUS: Discontinued PROCEDURE TYPE: NM Parathyroid: 393 microcuries of Nal 123 capsules was administered orally at 0710. 36.0 mCi of Tc99m Sestamibi was injected IV at 1030. ADMINISTRATION TIME: PATIENT DISCHARGED TO: Ambulatory patient, left [place] department area. A Diagnostic radioactive procedure has taken place, with no further precautions necessary other than routine body substance precautions. More information regarding radiation safety can be found using this link: [email or web address] SIGNATURE: REG Doty) PATIENT NAME: Kerwin Graham DATE: October 21, 2023 TIME: 7:12 AM PAGER/CONTACT #: documented in this encounter [facility] 10-20-2023 Note HNO ID: [id number] Author: Mikael Quintero RT(R) Service: ? Author Type: Technologist Type: Progress Notes Filed: 10/20/2023 10:53 AM Note Text: Radiology Service Progress Note PATIENT NAME: Kerwin Graham DATE OF SERVICE: October 20, 2023 TIME: 10:38 AM PATIENT IDENTITY VERIFICATION COMPLETED USING TWO (2) IDENTIFIERS: Name and Date of confirmed by patient verbally. FALL SCREENING: Has the patient had 2 falls in the last year or 1 fall with injury or currently using an Ambulatory Assistive Device (Walker, Cane, Wheelchair, Crutches, etc.)? No PATIENT GENDER DATA: Male PATIENT RELEVANT IMPLANT DATA REVIEWED: Not Applicable RADIOLOGY DEPARTMENT: Bone Density PERIPHERAL IV DATA: Not applicable SIGNED BY: RT Shamar(R) October 20, 2023 10:38 AM [facility] 10-20-2023 History of Present illness Narrative Radiology Service Progress Note PATIENT NAME: Kerwin Graham DATE OF SERVICE: October 20, 2023 TIME: 10:38 AM PATIENT IDENTITY VERIFICATION COMPLETED USING TWO (2) IDENTIFIERS: Name and Date of confirmed by patient verbally. FALL SCREENING: Has the patient had 2 falls in the last year or 1 fall with injury or currently using an Ambulatory Assistive Device (Walker, Cane, Wheelchair, Crutches, etc.)? No PATIENT GENDER DATA: Male PATIENT RELEVANT IMPLANT DATA REVIEWED: Not Applicable RADIOLOGY DEPARTMENT: Bone Density PERIPHERAL IV DATA: Not applicable SIGNED BY: RT Shamar(R) October 20, 2023 10:38 AM documented in this encounter [facility] 10-05-2023 Miscellaneous Notes 10/05/2023 INTAKE COMPLETED-PT.PREFER TO CANCEL AND SEE A LOCAL MEDICAL THERMITE BOMB LOADER. IF CHARLENE LUPE AGREES TO SEE A MED. ENDO FIRST HE WILL CANCEL THIS APPOINTMENT. ENDOCRINE SURGERY PATIENT WORKSHEET Initial Call Date: October 05, 2023 Reason for Consult/ Referral: Hyperparathyroid PATIENT DEMOGRAPHICS Name: Kerwin Graham F#: [id number] : 1940 AGE: [age] year old Contact Numbers: Home: (home) Work: There is no work phone number on file. PATIENT PHYSICIAN INFORMATION Referring Doctor: CHARLENE ANDRADE Address: Phone: Steerer: CHARLENE ANDRADE Address: Phone: PCP: Radha Merino [address] [place] [address] PAST TREATMENT Office notes: SEE EPIC Medications: Aspirin No Pre-Visit Testing STUDY/TEST DATE ORDERED/REQUESTED DATE RECEIVED ENTIRE PANEL CALCIUM MAGNESIUM PHOS iPTH IONIZED CALCIUM VIT. D 25-HYDROXY VIT. D 1, 25-DIHYDROXY ALBUMIN 24HR URINE CALCIUM 24 HR URINE CREATININE MIBI SCAN BONE DENSITY SCAN Imaging Reports: SEE [facility] CD of Images: SEE EPIC FNA: no FNA Slides: N/A Has the patient ever had thyroid or parathyroid surgery before: No Operative Reports: NONE AVAILABLE Pathology Reports: NONE AVAILABLE documented in this encounter [facility] 08-25-2023 Note HNO ID: [id number] Author: Charlene Hein APRN.SKIING TEACHER Service: ? 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 Side effects discussed. Check BMP in 2-3 weeks -Check metabolic blood work (serum uric acid, PTH, total/ionized calcium, magnesium, and Vit D). -Increase fluids enough to produce 2.5-3L urine output daily -Increase citrus intake -Low oxalate diet, combine with calcium source -Consume alkaline diet -Limit sodium intake to 5900-5026 mg daily -New 24 hour testing in 3 months A 24 hr urine test kit will be arriving in the next 1-2 months. If the kit does not arrive in that time frame please call the office ([phone]) or My Chart and let us know. We use a 24 hour urine test from a company called [employer]. In general, insurance typically covers the cost of the test, but occasionally they do not. Insurance coverage may also change year to year, so it is up to you, the patient, to check with your insurance company to see if the test is covered. You will not be billed for the test until it is completed, so it's ok to hang onto the kit until you have that information. If your insurance does not cover the cost, we do have another 24 hour testing option at [facility] that is typically covered. It is not as comprehensive as the [facility] test, so this why it is not our primary choice for testing, but if [facility]olink is not covered, please let our office know so we can get you set up with the [facility] option. You DO NOT need to stop Vit C and other supplements prior to testing even though the [facility] instructions say to do so. If you are on an antibiotic, then you should wait at least 1 week after you complete the course of antibiotic to do the 24 hour urine test You should also not test during an active stone event or recovery following surgery - wait until you are back to your normal dietary habits Please do not change your dietary habits or increase your fluid intake for testing alone. We are trying to get an accurate picture of what your risk factors are! Reviewed recent 24 hour urine study and discussed strategies for stone prevention: Low urine volume - We recommend increasing your fluid intake to 2.5-3L/day or 80-100 ounces/day. Not only increase fluids during the day but also drink 1-2 glasses of water before bed, get up at least once thru the night to urinate and then drink another glass of water before returning to sleep. Hypocitraturia (low urine citrate) - Recommend increasing dietary citrate intake. Adding more fruits AND vegetables to your diet; in particular citrus fruits like jr, limes, oranges, melons and tomatoes. Aciduria (low urine pH) - Recommend eating an alkaline diet. 75-80% of foods consumed should provide an alkaline load. Fruits and vegetables are great options! Hypernatriuria (high urine sodium) - we recommend a low sodium diet <2000mg/d. Read food labels, choose low sodium options, avoid canned, frozen or boxed meals, eat more fresh foods -General stone prevention guidelines: Fluid intake- #1 reason why people form stones - not enough fluid! Recommend increasing water/fluid intake (2.5-3L/day or 80-100 ounces/day), including nighttime hydration. We recommend emptying your bladder and drinking 1-2 glasses of water prior to bed, then getting up at least once during the night to empty your bladder again and drinking 1 more glass of water before returning to bed. All fluids count but water is the best. Rock Intake- Recommend increasing dietary citrate intake. Adding more fruits AND vegetables to your diet; in particular citrus fruits (jr/limes/lemonade/melons/eduardo toes). One can add 4 oz of lemon juice diluted in 32 oz of water daily to start. If diet changes are too difficult we can prescribe a medication, potassium citrate, that can help increase your citrate levels. Sodium intake- We recommend a low sodium diet <2000mg/d. Read food labels, choose low sodium options, avoid canned, frozen or boxed meals, eat more fresh foods and possibly add a fish oil supplement daily (2000mg/d) Calcium intake - Recommend 2-3 servings of calcium per day. Not advisable for stone patients to restrict calcium intake as it is very important for good bone, muscle, and tissue health. RTC in 3 months w/ new lab, CHARBEL, and Litholink. Medical Decision Making: Problems: Low: Stable chronic illness Data: Unique test result(s) reviewed: 2 Unique test(s) ordered: 3+ (more content not included)... [facility] 06-07-2023 Note HNO ID: [id number] Author: Radha Merino MD Service: ? Author Type: Physician Type: Progress Notes Filed: 06/07/2023 1:06 PM Note Text: This note was created using [employer]. Subjective Kerwin Graham is a 82 year old male presenting today for annual Medicare wellness exam. He has been having increased left low back pain. He reports this pain has been longstanding but has gotten acutely worse over past year. At times radiating into his left hip. Some intermittent numbness and tingling to bilateral upper extremities. Kerwin reports he was previously able to walk 3 miles a day without difficulty. He now has trouble completing 1 mile daily. He did see an orthopedist in [place] about 4 years ago who told him he had L4-L5 degeneration. He is wanting to return to this orthopedist for evaluation. Kerwin also reports having kidney stones requiring surgical removal this past February. History of horseshoe kidney. Also states he still has 1 kidney stone remaining in each kidney. PSA was normal at this time. He is following with urology. Denies current symptoms. Blood pressure remains well controlled on current medications. Review of Systems Constitutional: Negative. HENT: Negative. Eyes: Negative. Respiratory: Negative. Cardiovascular: Negative. Gastrointestinal: Negative. Endocrine: Negative. Genitourinary: Negative. Musculoskeletal: Positive for arthralgias, back pain and neck stiffness. Negative for gait problem, joint swelling, myalgias and neck pain. Intermittent numbness and tingling in arms bilaterally. 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 Skin: Negative. Allergic/Immunologic: Negative. Neurological: Negative. Hematological: Negative. Psychiatric/Behavioral: Negative. Objective BP (P) 128/74 (BP Site: Left Arm, BP Position: Sitting) Temp (P) 36.1 ?C (97 ?F) (Temporal) Resp (P) 14 Ht (P) 175.3 cm (5' 9 ) Wt (P) 98.6 kg (217 lb 6.4 oz) SpO2 (P) 99% BMI (P) 32.10 kg/m? Physical Exam Constitutional: Appearance: Normal appearance. HENT: Head: Normocephalic and atraumatic. Nose: Nose normal. Eyes: Extraocular Movements: Extraocular movements intact. Pupils: Pupils are equal, round, and reactive to light. Cardiovascular: Rate and Rhythm: Normal rate and regular rhythm. Pulmonary: Effort: Pulmonary effort is normal. Breath sounds: Normal breath sounds. Abdominal: General: Bowel sounds are normal. Palpations: Abdomen is soft. Musculoskeletal: General: No swelling, tenderness, deformity or signs of injury. Normal range of motion. Cervical back: Normal range of motion and neck supple. Right lower leg: No edema. Left lower leg: No edema. Skin: General: Skin is warm and dry. Capillary Refill: Capillary refill takes less than 2 seconds. Neurological: General: No focal deficit present. Mental Status: He is alert and oriented to person, place, and time. Motor: No weakness. Gait: Gait normal. Psychiatric: Mood and Affect: Mood normal. Behavior: Behavior normal. Assessment and Plan Encounter Diagnosis ICD-10-CM 1. Wellness examination Z00.00 2. Chronic midline low back pain without sciatica M54.50 CONSULT TO ORTHOPAEDICS G89.29 3. Hypertension, essential I10 CBC + DIFF COMP METABOLIC PANEL 4. Pure hypercholesterolemia E78.00 LIPID PANEL BASIC 5. Screening for deficiency anemia Z13.0 COMP METABOLIC PANEL (Z00.00) Wellness examination (primary encounter diagnosis) Comment: Chronic medical condition stable on current treatment plan. Plan: Continue current medications. Follow-up in 6 months. (M54.50, G89.29) Chronic midline low back pain without sciatica Comment: Increasing. Plan: CONSULT TO ORTHOPAEDICS Consult to [place] [facility] per patient request for evaluation of increasing low back pain. (I10) Hypertension, essential Comment: Well-controlled at this time. Plan: CBC + DIFF, COMP METABOLIC PANEL Continue current medications and blood pressure checks at home. Notify office if blood pressure rises above 140/90. (E78.00) Pure hypercholesterolemia Comment: Stable Plan: LIPID PANEL BASIC Continue current medications. (Z13.0) Screening for deficiency anemia Plan: CBC + diff All open preventative health maintenance topics discussed with patient in detail. This includes risks and benefits regarding vaccines, cancer screening, healthy life style, and diet. Boostrix vaccine updated today. Kerwin will obtain the shingles vaccine series at his convenience. He will bring current advanced directive paperwork to the office at at his next visit. Radha Merino MD [facility] 06-07-2023 Note HNO ID: [id number] Author: Lorri Pekrins LPN Service: ? Author Type: LICENSED NURSE Type: Progress Notes Filed: 06/07/2023 1:06 PM Note Text: Patient in office today for an annual Medicare wellness exam. Health Maintenance Due: BP CONTROLLED (<130/80)---yes DTAP,TDAP,TD(1 - Tdap)---wants to discuss SHINGRIX VACCINE(1 of 2)---he would like to get this vaccine PNEUMOCOCCAL: 65+(2 - PPSV23 or PCV20)---wants to discuss ADVANCE DIRECTIVE DISCUSSION---not on file DEPRESSION ASSESSMENT---done today and is negative COVID-19 VACCINE(6 - Moderna series)---he has had 5 shots so far done at [facility] Medicare Yearly Visit PAST MEDICAL HISTORY Diagnosis Date Acute ethmoidal sinusitis 02/22/2020 Acute gastritis without mention of hemorrhage 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 Bladder neck obstruction Burning sensation of feet 02/22/2020 Calculus of kidney Constipation 04/06/2019 Dehydration 05/07/2022 Diastasis of rectus abdominis 12/07/2022 Diverticulosis of colon (without mention of hemorrhage) Diverticulosis Edema of lower extremity 12/07/2022 Erectile dysfunction 10/21/2020 Esophageal reflux Essential hypertension Essential hypertension, benign Gout Hyperlipidemia 08/04/2017 Hypertension, benign 04/23/2011 Hypertrophy of prostate with urinary obstruction and other lower urinary tract symptoms (LUTS) 03/11/2006 Impaired glucose tolerance 08/04/2017 Intermittent claudication (HCC) 12/07/2022 Low back pain 12/07/2022 Macrocytosis 03/29/2021 Neuropathy 10/21/2020 Nonrheumatic mitral valve regurgitation 12/07/2022 Obesity 12/07/2022 Other and unspecified hyperlipidemia Paresthesia of both hands 12/07/2022 Polyneuropathy 10/16/2022 Snoring PAST SURGICAL HISTORY Procedure Laterality Date COLONOSCOPY FLX DX W/COLLJ SPEC WHEN PFRMD 05/14/2005 Colonoscopy COLONOSCOPY FLX DX W/COLLJ SPEC WHEN PFRMD 11/11/2015 Colonoscopy EGD TRANSORAL BIOPSY SINGLE/MULTIPLE 11/24/2006 ORTHOPEDIC SURGERY HX PROSTATE NEEDLE BIOPSY ANY APPROACH Transrectal bx, prostate TONSILLECTOMY PRIMARY/SECONDARY Tonsillectomy ALLERGIES: Patient has no known allergies. Medications reviewed: Yes FAMILY HISTORY Problem Relation Age of Onset Heart disease Mother SOCIAL HISTORY: Social History Tobacco Use Smoking status: Never Smokeless tobacco: Never Vaping Use Vaping Use: Never used Substance Use Topics Alcohol use: Yes Comment: occassionally Drug use: No Kerwin gets sporadic irregular exercise. He watches his diet for sodium, low fat and low cholesterol most of the time. List of current specialists seen: Dermatology---Sharon Solomon [facility] [facility]---Dr Buck in [facility] Cardiology---Dr Zuniga Urology---[facility] Planning discussed including patients advanced directive wishes: not on file I am willing to follow Kerwin's advanced directives. PHQ-2 / Depression screen He in the past two weeks denies having felt down, depressed, hopeless, or with little interest or pleasure in doing things. Functional Ability/Safety Screen 1. Was the patient's timed Up and Go test unsteady or longer than 30 seconds? N/A 2. Does the patient need help with the phone, transportation, shopping,preparing meals, housework, laundry, medications or managing money? No 3. Does your home have rugs in the hallway, lack of grab bars in the bathroom, lack of handrails on the stairs or have poor lighting? No Hearing Evaluation: within normal limits and normal PHYSICAL EXAM There were no vitals taken for this visit. Alert and oriented X 3: YES There is no height or weight on file to calculate BMI. Visual acuity: He wears corrective lenses ASSESSMENT/PLAN: 82 year old male The following prevention plan was discussed during the office visit and provided to the patient: Lorri Perkins LPN [facility] 06-07-2023 History of Present illness Narrative This note was created using [employer]. Subjective Kerwin Graham is a 82 year old male presenting today for annual Medicare wellness exam. He has been having increased left low back pain. He reports this pain has been longstanding but has gotten acutely worse over past year. At times radiating into his left hip. Some intermittent numbness and tingling to bilateral upper extremities. Kerwin reports he was previously able to walk 3 miles a day without difficulty. He now has trouble completing 1 mile daily. He did see an orthopedist in [place] about 4 years ago who told him he had L4-L5 degeneration. He is wanting to return to this orthopedist for evaluation. Kerwin also reports having kidney stones requiring surgical removal this past February. History of horseshoe kidney. Also states he still has 1 kidney stone remaining in each kidney. PSA was normal at this time. He is following with urology. Denies current symptoms. Blood pressure remains well controlled on current medications. Review of Systems Constitutional: Negative. HENT: Negative. Eyes: Negative. Respiratory: Negative. Cardiovascular: Negative. Gastrointestinal: Negative. Endocrine: Negative. Genitourinary: Negative. Musculoskeletal: Positive for arthralgias, back pain and neck stiffness. Negative for gait problem, joint swelling, myalgias and neck pain. Intermittent numbness and tingling in arms bilaterally. 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 Skin: Negative. Allergic/Immunologic: Negative. Neurological: Negative. Hematological: Negative. Psychiatric/Behavioral: Negative. Objective BP (P) 128/74 (BP Site: Left Arm, BP Position: Sitting) Temp (P) 36.1 C (97 F) (Temporal) Resp (P) 14 Ht (P) 175.3 cm (5' 9 ) Wt (P) 98.6 kg (217 lb 6.4 oz) SpO2 (P) 99% BMI (P) 32.10 kg/m Physical Exam Constitutional: Appearance: Normal appearance. HENT: Head: Normocephalic and atraumatic. Nose: Nose normal. Eyes: Extraocular Movements: Extraocular movements intact. Pupils: Pupils are equal, round, and reactive to light. Cardiovascular: Rate and Rhythm: Normal rate and regular rhythm. Pulmonary: Effort: Pulmonary effort is normal. Breath sounds: Normal breath sounds. Abdominal: General: Bowel sounds are normal. Palpations: Abdomen is soft. Musculoskeletal: General: No swelling, tenderness, deformity or signs of injury. Normal range of motion. Cervical back: Normal range of motion and neck supple. Right lower leg: No edema. Left lower leg: No edema. Skin: General: Skin is warm and dry. Capillary Refill: Capillary refill takes less than 2 seconds. Neurological: General: No focal deficit present. Mental Status: He is alert and oriented to person, place, and time. Motor: No weakness. Gait: Gait normal. Psychiatric: Mood and Affect: Mood normal. Behavior: Behavior normal. Assessment and Plan Encounter Diagnosis ICD-10-CM 1. Wellness examination Z00.00 2. Chronic midline low back pain without sciatica M54.50 CONSULT TO ORTHOPAEDICS G89.29 3. Hypertension, essential I10 CBC + DIFF COMP METABOLIC PANEL 4. Pure hypercholesterolemia E78.00 LIPID PANEL BASIC 5. Screening for deficiency anemia Z13.0 COMP METABOLIC PANEL (Z00.00) Wellness examination (primary encounter diagnosis) Comment: Chronic medical condition stable on current treatment plan. Plan: Continue current medications. Follow-up in 6 months. (M54.50, G89.29) Chronic midline low back pain without sciatica Comment: Increasing. Plan: CONSULT TO ORTHOPAEDICS Consult to [place] [facility] per patient request for evaluation of increasing low back pain. (I10) Hypertension, essential Comment: Well-controlled at this time. Plan: CBC + DIFF, COMP METABOLIC PANEL Continue current medications and blood pressure checks at home. Notify office if blood pressure rises above 140/90. (E78.00) Pure hypercholesterolemia Comment: Stable Plan: LIPID PANEL BASIC Continue current medications. (Z13.0) Screening for deficiency anemia Plan: CBC + diff All open preventative health maintenance topics discussed with patient in detail. This includes risks and benefits regarding vaccines, cancer screening, healthy life style, and diet. Boostrix vaccine updated today. Kerwin will obtain the shingles vaccine series at his convenience. He will bring current advanced directive paperwork to the office at at his next visit. Radha Merino MD Patient in office today for an annual Medicare wellness exam. Health Maintenance Due: BP CONTROLLED (<130/80)---yes DTAP,TDAP,TD(1 - Tdap)---wants to discuss SHINGRIX VACCINE(1 of 2)---he would like to get this vaccine PNEUMOCOCCAL: 65+(2 - PPSV23 or PCV20)---wants to discuss ADVANCE DIRECTIVE DISCUSSION---not on file DEPRESSION ASSESSMENT---done today and is negative COVID-19 VACCINE(6 - Moderna series)---he has had 5 shots so far done at [facility] Medicare Yearly Visit PAST MEDICAL HISTORY Diagnosis Date Acute ethmoidal sinusitis 02/22/2020 Acute gastritis without mention of hemorrhage 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 Bladder neck obstruction Burning sensation of feet 02/22/2020 Calculus of kidney Constipation 04/06/2019 Dehydration 05/07/2022 Diastasis of rectus abdominis 12/07/2022 Diverticulosis of colon (without mention of hemorrhage) Diverticulosis Edema of lower extremity 12/07/2022 Erectile dysfunction 10/21/2020 Esophageal reflux Essential hypertension Essential hypertension, benign Gout Hyperlipidemia 08/04/2017 Hypertension, benign 04/23/2011 Hypertrophy of prostate with urinary obstruction and other lower urinary tract symptoms (LUTS) 03/11/2006 Impaired glucose tolerance 08/04/2017 Intermittent claudication (HCC) 12/07/2022 Low back pain 12/07/2022 Macrocytosis 03/29/2021 Neuropathy 10/21/2020 Nonrheumatic mitral valve regurgitation 12/07/2022 Obesity 12/07/2022 Other and unspecified hyperlipidemia Paresthesia of both hands 12/07/2022 Polyneuropathy 10/16/2022 Snoring PAST SURGICAL HISTORY Procedure Laterality Date COLONOSCOPY FLX DX W/COLLJ SPEC WHEN PFRMD 05/14/2005 Colonoscopy COLONOSCOPY FLX DX W/COLLJ SPEC WHEN PFRMD 11/11/2015 Colonoscopy EGD TRANSORAL BIOPSY SINGLE/MULTIPLE 11/24/2006 ORTHOPEDIC SURGERY HX PROSTATE NEEDLE BIOPSY ANY APPROACH Transrectal bx, prostate TONSILLECTOMY PRIMARY/SECONDARY <AGE 14 Tonsillectomy ALLERGIES: Patient has no known allergies. Medications reviewed: Yes FAMILY HISTORY Problem Relation Age of Onset Heart disease Mother SOCIAL HISTORY: Social History Tobacco Use Smoking status: Never Smokeless tobacco: Never Vaping Use Vaping Use: Never used Substance Use Topics Alcohol use: Yes Comment: occassionally Drug use: No Kerwin gets sporadic irregular exercise. He watches his diet for sodium, low fat and low cholesterol most of the time. List of current specialists seen: Dermatology---Sharon Solomon [place] [facility]---Dr Buck in [facility] Cardiology---Dr Zuniga Urology---[facility] Planning discussed including patients advanced directive wishes: not on file I am willing to follow Kerwin's advanced directives. PHQ-2 / Depression screen He in the past two weeks denies having felt down, depressed, hopeless, or with little interest or pleasure in doing things. Functional Ability/Safety Screen 1. Was the patient's timed Up and Go test unsteady or longer than 30 seconds? N/A 2. Does the patient need help with the phone, transportation, shopping,preparing meals, housework, laundry, medications or managing money? No 3. Does your home have rugs in the hallway, lack of grab bars in the bathroom, lack of handrails on the stairs or have poor lighting? No Hearing Evaluation: within normal limits and normal PHYSICAL EXAM There were no vitals taken for this visit. Alert and oriented X 3: YES There is no height or weight on file to calculate BMI. Visual acuity: He wears corrective lenses ASSESSMENT/PLAN: 82 year old male The following prevention plan was discussed during the office visit and provided to the patient: Lorri Perkins LPN documented in this encounter [facility] 04-28-2023 Note HNO ID: [id number] Author: Tino Garcia MD Service: ? Author Type: Physician Type: Progress Notes Filed: 04/28/2023 11:13 AM Note Text: [facility] FOLLOW UP NOTE NAME: Kerwin Graham [facility] #: [id number] : 1940 AGE: [age] year old Kerwin Graham is a 82 year old male, who returns for post-operative cystoscopy with ureteral stent removal. ASSESSMENT - horseshoe kidney - s/p left URS for distal ureteral stone - 7.5mm LLP stone PLAN: - Observation of left lower pole stone for now - likely would need percutaneous management given Horseshoe kidney - will follow up in stone clinic - fu in 1 year with KUB I have confirmed and edited as necessary, the PFSH and ROS obtained by others. Milana Garcia MD Staff Urologist, [facility]. S/P Left URS on 04/21/2023. OPERATIVE FINDINGS: Stone [place]: Primary stone 15 mm ureterovesical junction; Additional stone(s) none Ureteral Access Sheath: None Lithotripsy Technique: fragmenting and basket extraction Laser: 365-micron Fiber Dust thulium fiber laser; 1 J and 3 Hz, changed to 1 J and 5 Hz Irrigation: Path Finder bulb ceo and founder; max pressure hand irrigation (1-10 ml per flush) Anatomic Findings: Horseshoe kidney Anticipated SFR: 95% (ureter) ------- ----- Last office visit summary - ASSESSMENT: - horseshoe kidney - 1.5x8mm LEFT distal ureteral stone; 7.5mm LLP stone PLAN: - left URS (for ureteral stone) - observation of left renal stone for now - f/u in stone clinic ------- ----- The benefits and risks of the cystoscopy procedure were discussed with the patient, especially the potential complications including, but not limited to: pain, infection, bleeding, hematuria, worsening of voiding symptoms, urinary retention, sepsis and possible need for additional procedures or a catheter. All questions were answered to the patient's satisfaction. Consent for cystoscopy and all indicated procedures was obtained from patient and the patient agrees to proceed. PROCEDURE DETAILS: The patient was placed on the procedure table in the supine position and prepped and draped in the usual sterile fashion. Lubrication was placed per urethra in the standard fashion. The tip of the flexible digital cystoscope was carefully placed into the urethra under direct visual guidance and the procedure was performed. The bladder was entered and the previously placed ureteral stent was noted to be emanating from the left ureteral orifice. This was grasped with a flexible alligator grasper, and removed in whole without issues. The patient tolerated the procedure without complications, and was given standard post-procedure instructions. [facility] 04-28-2023 Nurse Note POST PROCEDURE NURSE Audible Time Out: 09:00 Procedure Start Time: 09:00 Procedure/Indication Cystoscopy/stent extraction Instruction sheet given and reviewed and patient verbalizes understanding: yes Post-Procedure Vital Signs: BP 169/89 Pulse 69 Post Procedure Antibiotic: N/A Is the patient having any pain? No 0 on a scale of 0 to 10 Lary Leung LPN UNIVERSAL PROTOCOL / SAFETY CHECKLIST Procedure to be Performed: Cysto/stent extraction Sign In: A Moment of CARE was completed. Personnel directly involved with the procedure wore the appropriate PPE (Personal Protective Equipment). Patient/Surrogate Stated/Verified: PATIENT VERIFIED(optional for EMERGENT procedures): Patient name, Date of , Relevant allergies, and The intended procedure Time Out Communication: Intended patient and procedure match the source documents. Consent documented and matches the intended procedure. Sign Out: Lary Leung LPN PRE CYSTO PROCEDURE ID Verified by: Lary Leung LPN Procedure Indication:Cystoscopy/Stent extracion Latex Allergy: No Betadine Allergy: No Lidocaine allergy: No Allergies reviewed and updated. Pre-Procedure Vital Signs: Height 175.3 cm (5' 9 ), weight 97.1 kg (214 lb). Heart valve replacement:No Joint replacement: No Pre-Procedure Antibiotics: None Patient Prep: Betadine Scrub to perineum and placement of Sterile Drape. Anesthetic Given: 10 cc 2% Lidocaine jelly Lary Leung LPN documented in this encounter [facility] 04-28-2023 History of Present illness Narrative [facility] FOLLOW UP NOTE NAME: Kerwin Graham [facility] #: [id number] : 1940 AGE: [age] year old Kerwin Graham is a 82 year old male, who returns for post-operative cystoscopy with ureteral stent removal. ASSESSMENT - horseshoe kidney - s/p left URS for distal ureteral stone - 7.5mm LLP stone PLAN: - Observation of left lower pole stone for now - likely would need percutaneous management given Horseshoe kidney - will follow up in stone clinic - fu in 1 year with KUB I have confirmed and edited as necessary, the PFSH and ROS obtained by others. Milana Garcia MD Staff Urologist, [facility]. S/P Left URS on 04/21/2023. OPERATIVE FINDINGS: Stone [place]: Primary stone 15 mm ureterovesical junction; Additional stone(s) none Ureteral Access Sheath: None Lithotripsy Technique: fragmenting and basket extraction Laser: 365-micron Fiber Dust thulium fiber laser; 1 J and 3 Hz, changed to 1 J and 5 Hz Irrigation: Path Finder bulb ceo and founder; max pressure hand irrigation (1-10 ml per flush) Anatomic Findings: Horseshoe kidney Anticipated SFR: 95% (ureter) Last office visit summary - ASSESSMENT: - horseshoe kidney - 1.5x8mm LEFT distal ureteral stone; 7.5mm LLP stone PLAN: - left URS (for ureteral stone) - observation of left renal stone for now - f/u in stone clinic The benefits and risks of the cystoscopy procedure were discussed with the patient, especially the potential complications including, but not limited to: pain, infection, bleeding, hematuria, worsening of voiding symptoms, urinary retention, sepsis and possible need for additional procedures or a catheter. All questions were answered to the patient's satisfaction. Consent for cystoscopy and all indicated procedures was obtained from patient and the patient agrees to proceed. PROCEDURE DETAILS: The patient was placed on the procedure table in the supine position and prepped and draped in the usual sterile fashion. Lubrication was placed per urethra in the standard fashion. The tip of the flexible digital cystoscope was carefully placed into the urethra under direct visual guidance and the procedure was performed. The bladder was entered and the previously placed ureteral stent was noted to be emanating from the left ureteral orifice. This was grasped with a flexible alligator grasper, and removed in whole without issues. The patient tolerated the procedure without complications, and was given standard post-procedure instructions. documented in this encounter [facility] 04-21-2023 Miscellaneous Notes Returned call and spoke with pharmacist. Confirmed that patient had surgery today and toradol injection order was placed. Pharmacist voiced understanding and will fill toradol pills. Raquel Hutchison RN Reema in [place] is calling Tino Garcia MD today to confirm that the patient has had IV treatment before they can dispense the pill form of Ketorolac that they received this morning. No chief complaint on file. Patient has been identified by name and birthdate. Duration of symptoms: N/A Was an appointment scheduled: No Closing statement: Results or non-symptom based questions: Thank you for calling [facility], your call will be returned within the next business day. 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 Staffing CAA: PASCUAL Salas Performed by: anesthesiologist and CAA Indications and Patient Condition Indications for airway management: anesthesia Preoxygenated: yes anesthesia circuit Method: asleep Cricoid Pressure: No Manual In-Line Stabilization: No Difficult Mask: No Final Airway Details Final airway type: supraglottic airway Number of attempts at approach: 1 Ventilation between attempts: none Final Supraglottic Airway: i-gel Size 5 Seal Adequate: yes Failed airway: no Unrecognized esophageal intubation: no Airway not difficult SIGNATURE: PASCUAL Salas PATIENT NAME: Kerwin Graham DATE: April 21, 2023 TIME: 8:00 AM CSN: [id number] [facility] 03-30-2023 Note HNO ID: [id number] Author: Tino Garcia MD Service: ? Author Type: Physician Type: Progress Notes Filed: 04/05/2023 8:07 AM Note Text: [facility] Patient: Kerwin Graham Provider Tino Garcia MD : 1940 Location: [facility] [place] Date of Service: March 30, 2023 Referring Provider: Yumiko Hernandez MD PCP: Radha Merino MD Reason for Consultation and Chief Complaint: Kerwin Graham is a 82 year old year old male who is being seen at the request of Mary for further evaluation and management of Nephrolithiasis. The findings AND recommendations will be communicated back to the referring physician via the EMR (or fax). ASSESSMENT: - horseshoe kidney - 1.5x8mm LEFT distal ureteral stone; 7.5mm LLP stone PLAN: - left URS (for ureteral stone) - observation of left renal stone for now - f/u in stone clinic My interpretation of the available imaging confirms the above stone related findings, and was reviewed with the patient in detail. The following options were discussed in detail, with the associated risks, benefits and anticipated outcomes of each: - observation- risk of stone growth and passage discussed. - ureteroscopy - 80%SFR - shock wave lithotripsy - 70%SFR - Percutaneous nephrolithotomy - N/A The patient decided to proceed with left URS, and was given the opportunity to have all questions answered and appeared to be satisfied with our discussion. This visit was conducted as a virtual visit. I have communicated my name and active licensure. The patient's identity and physical location were verified at the time of this visit. Either the patient or their legal printing supplies sales representative has been informed of the risks and benefits of and alternatives to treatment through a remote evaluation and consents to proceed with the evaluation remotely. I have confirmed and edited as necessary, the PFSH and ROS obtained by others. Milana Garcia MD Medical Decision Making: Problems: Moderate: New problem with uncertain prognosis Data: Unique test result(s) reviewed: 2 Risk: Moderate: Decision on minor surgery w/ risk factors Medical Decision Making Level: 4 - Moderate HPI: New patient to Dr. Garcia, was referred by Dr. Hernandez regarding most recent CT results from 03/24/23. Left UVJ stone ~1.4cm; additional LLP stone ~8mm in horseshoe kidney Minimal symptoms. Minimal hydro Recent UTI, s/p Rx with Cipro - urine culture -ve Current symptoms: Yes Symptom Description: Pain Location: Flank Side: left Intensity of pain:3-6/10 Quality:intermittent Other symptoms: Fevers: No Chills: No Nausea: No Vomiting: No LUTS: Dysuria: Yes Gross Hematuria: No Frequency: No Urgency: No PAST STONE HISTORY: Yes Date/year of first Episode: June of 2004 No. Of stones passed: 1 Prior 24hr urine: no Stone analysis: no Prior stone related surgery: No Current stone related Medications: Yes, Potassium citrate or Sodium Bicarb: No Hydrochlorothiazide/Chlorthalidone :No Allopurinol:Yes Topamax: No Vitamin D: No Other: n/a Family history of (urinary) stone disease - No OTHER UROLOGIC HISTORY: - Kidney/Bladder/Prostate/Testis cancer: No Occupation - Retired REVIEW OF SYSTEMS: Weight Loss: Yes- intentional Endocrine (DM, thyroid) - No Neuro - History of CVA -No Cardiovascular- Yes, hypertension, Anticoagulation meds - Yes- 81 mg ASA Respiratory- No Gastrointestinal- Yes- GERD, Diverticulosis Genitourinary- as above Musculoskeletal: Arthritis Yes History of gout Yes Past history and review of systems completed by Awilda Hamm RN RELEVANT IMAGING STUDIES (most recent): CT: 03/24/2023 IMPRESSION: Large distal left ureteral calculus at the UVJ measuring up to 1.4 cm with trace hydroureter. Horseshoe kidney variant. Peripelvic remaining 1 cm left intrarenal calculus. Colonic diverticulosis RESULT: Limitations: Unenhanced imaging is limited for the evaluation of some renal and other intra-abdominal and pelvic pathology. Urinary Tract: Right kidney and ureter: Horseshoe kidney variant. No hydronephrosis. No finding to suggest cyst or mass in the unenhanced kidney. Left kidney and ureter: Horseshoe kidney variant. 1 cm interpolar calculus. Large stone at the left UVJ measures 1.4 x 0.8 cm with only trace hydroureter. No finding to suggest cyst or mass in the unenhanced kidney. Bladder: No calculus. Abdomen and Pelvis: Liver: Unremarkable. Biliary: The gallbladder is unremarkable. Spleen: No splenomegaly. Pancreas: Unremarkable. Adrenals: Normal. GI Tract: No bowel dilation. Extensive colonic diverticulosis Lymph Nodes: No lymphadenopathy. Mesentery/peritoneum: No ascites. Vasculature: Arterial atherosclerotic disease without aneurysm. Pelvis: No mass or ascites. Bones and (more content not included)... [facility] 03-30-2023 History of Present illness Narrative [facility] Patient: Kerwin Graham Provider Tino Garcia MD : 1940 Location: [facility] Date of Service: March 30, 2023 Referring Provider: Yumiko Hernandez MD PCP: Radha Merino MD Reason for Consultation and Chief Complaint: Kerwin Graham is a 82 year old year old male who is being seen at the request of Mary for further evaluation and management of Nephrolithiasis. The findings & recommendations will be communicated back to the referring physician via the EMR (or fax). ASSESSMENT: - horseshoe kidney - 1.5x8mm LEFT distal ureteral stone; 7.5mm LLP stone PLAN: - left URS (for ureteral stone) - observation of left renal stone for now - f/u in stone clinic My interpretation of the available imaging confirms the above stone related findings, and was reviewed with the patient in detail. The following options were discussed in detail, with the associated risks, benefits and anticipated outcomes of each: - observation- risk of stone growth and passage discussed. - ureteroscopy - 80%SFR - shock wave lithotripsy - 70%SFR - Percutaneous nephrolithotomy - N/A The patient decided to proceed with left URS, and was given the opportunity to have all questions answered and appeared to be satisfied with our discussion. This visit was conducted as a virtual visit. I have communicated my name and active licensure. The patient's identity and physical location were verified at the time of this visit. Either the patient or their legal printing supplies sales representative has been informed of the risks and benefits of and alternatives to treatment through a remote evaluation and consents to proceed with the evaluation remotely. I have confirmed and edited as necessary, the PFSH and ROS obtained by others. Milana Garcia MD Medical Decision Making: Problems: Moderate: New problem with uncertain prognosis Data: Unique test result(s) reviewed: 2 Risk: Moderate: Decision on minor surgery w/ risk factors Medical Decision Making Level: 4 - Moderate HPI: New patient to Dr. Garcia, was referred by Dr. Hernandez regarding most recent CT results from 03/24/23. Left UVJ stone ~1.4cm; additional LLP stone ~8mm in horseshoe kidney Minimal symptoms. Minimal hydro Recent UTI, s/p Rx with Cipro - urine culture -ve Current symptoms: Yes Symptom Description: Pain Location: Flank Side: left Intensity of pain:3-6/10 Quality:intermittent Other symptoms: Fevers: No Chills: No Nausea: No Vomiting: No LUTS: Dysuria: Yes Gross Hematuria: No Frequency: No Urgency: No PAST STONE HISTORY: Yes Date/year of first Episode: June of 2004 No. Of stones passed: 1 Prior 24hr urine: no Stone analysis: no Prior stone related surgery: No Current stone related Medications: Yes, Potassium citrate or Sodium Bicarb: No Hydrochlorothiazide/Chlorthalidone :No Allopurinol:Yes Topamax: No Vitamin D: No Other: n/a Family history of (urinary) stone disease - No OTHER UROLOGIC HISTORY: - Kidney/Bladder/Prostate/Testis cancer: No Occupation - Retired REVIEW OF SYSTEMS: Weight Loss: Yes- intentional Endocrine (DM, thyroid) - No Neuro - History of CVA -No Cardiovascular- Yes, hypertension, Anticoagulation meds - Yes- 81 mg ASA Respiratory- No Gastrointestinal- Yes- GERD, Diverticulosis Genitourinary- as above Musculoskeletal: Arthritis Yes History of gout Yes Past history and review of systems completed by Awilda Hamm RN RELEVANT IMAGING STUDIES (most recent): CT: 03/24/2023 IMPRESSION: Large distal left ureteral calculus at the UVJ measuring up to 1.4 cm with trace hydroureter. Horseshoe kidney variant. Peripelvic remaining 1 cm left intrarenal calculus. Colonic diverticulosis RESULT: Limitations: Unenhanced imaging is limited for the evaluation of some renal and other intra-abdominal and pelvic pathology. Urinary Tract: Right kidney and ureter: Horseshoe kidney variant. No hydronephrosis. No finding to suggest cyst or mass in the unenhanced kidney. Left kidney and ureter: Horseshoe kidney variant. 1 cm interpolar calculus. Large stone at the left UVJ measures 1.4 x 0.8 cm with only trace hydroureter. No finding to suggest cyst or mass in the unenhanced kidney. Bladder: No calculus. Abdomen and Pelvis: Liver: Unremarkable. Biliary: The gallbladder is unremarkable. Spleen: No splenomegaly. Pancreas: Unremarkable. Adrenals: Normal. GI Tract: No bowel dilation. Extensive colonic diverticulosis Lymph Nodes: No lymphadenopathy. Mesentery/peritoneum: No ascites. Vasculature: Arterial atherosclerotic disease without aneurysm. Pelvis: No mass or ascites. 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 Multilevel moderate degenerative disc disease. Lower thorax: Unremarkable. Schedule Checker (topogram) images: Unremarkable. Renal Ultrasound: 03/18/2023, date of exam: 03/06/2023 External imaging LABS/INVESTIGATIONS: Creatinine Date Value Ref Range Status 03/16/2023 1.03 0.73 - 1.22 mg/dL Final 02/16/2023 <0.9 0.70 - 1.20 mg/dL Final 12/10/2022 1.04 0.73 - 1.22 mg/dL Final 10/09/2022 1.08 0.73 - 1.22 mg/dL Final Hemoglobin (g/dL) Date Value 03/16/2023 13.5 Hematocrit (%) Date Value 03/16/2023 40.5 WBC (k/uL) Date Value 03/16/2023 5.90 PSA Screening (ng/mL) Date Value 03/16/2023 1.56 HISTORIES FAMILY HISTORY Problem Relation Age of Onset Heart disease Mother PAST MEDICAL HISTORY Diagnosis Date Acute ethmoidal sinusitis 02/22/2020 Acute gastritis without mention of hemorrhage 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 Bladder neck obstruction Burning sensation of feet 02/22/2020 Calculus of kidney Constipation 04/06/2019 Dehydration 05/07/2022 Diastasis of rectus abdominis 12/07/2022 Diverticulosis of colon (without mention of hemorrhage) Diverticulosis Edema of lower extremity 12/07/2022 Erectile dysfunction 10/21/2020 Esophageal reflux Essential hypertension Essential hypertension, benign Gout Hyperlipidemia 08/04/2017 Hypertension, benign 04/23/2011 Hypertrophy of prostate with urinary obstruction and other lower urinary tract symptoms (LUTS) 03/11/2006 Impaired glucose tolerance 08/04/2017 Intermittent claudication (HCC) 12/07/2022 Low back pain 12/07/2022 Macrocytosis 03/29/2021 Neuropathy 10/21/2020 Nonrheumatic mitral valve regurgitation 12/07/2022 Obesity 12/07/2022 Other and unspecified hyperlipidemia Paresthesia of both hands 12/07/2022 Polyneuropathy 10/16/2022 Snoring PAST SURGICAL HISTORY Procedure Laterality Date COLONOSCOPY FLX DX W/COLLJ SPEC WHEN PFRMD 05/14/2005 Colonoscopy COLONOSCOPY FLX DX W/COLLJ SPEC WHEN PFRMD 11/11/2015 Colonoscopy EGD TRANSORAL BIOPSY SINGLE/MULTIPLE 11/24/2006 ORTHOPEDIC SURGERY HX PROSTATE NEEDLE BIOPSY ANY APPROACH Transrectal bx, prostate TONSILLECTOMY PRIMARY/SECONDARY <AGE 14 Tonsillectomy Social History Tobacco Use Smoking status: Never Smokeless tobacco: Never Vaping Use Vaping Use: Never used Substance Use Topics Alcohol use: Yes Comment: occassionally Drug use: No ALLERGIES No Active Allergies Current Outpatient Medications Medication Sig Dispense Refill linaclotide (LINZESS ORAL) Take by mouth once daily. cyanocobalamin (VITAMIN B-12) 100 mcg tab Take 100 mcg by mouth once daily. Valsartan-hydroCHLOROthiazide 320-25 mg per tablet Take 1 tablet by mouth once daily. 90 tablet 3 omega-3 acid ethyl esters (LOVAZA) 1 gram capsule Take 2 capsules by mouth twice daily. 360 capsule 3 sildenafil (REVATIO) 20 mg tablet Take 1 tablet by mouth as needed. 2 tablets 1 hour before sexual activity 40 tablet 5 omeprazole (PRILOSEC) 20 mg capsule Take 1 capsule by mouth once daily. 90 capsule 3 simvastatin (ZOCOR) 40 mg tablet TAKE 1 TABLET BY MOUTH ONCE DAILY DIRECTED 90 tablet 3 allopurinol (ZYLOPRIM) 100 mg tablet TAKE 2 TABLETS BY MOUTH ONCE DAILY DIRECTED 180 tablet 3 vit A/vit C/vit E/zinc/copper (ICAPS AREDS ORAL) Take by mouth. Preservation amitriptyline (ELAVIL) 25 mg tablet TAKE 1 TABLET BY MOUTH AT NIGHT DIRECTED 90 tablet 3 ASPIRIN 81 MG TAB Take one (1) tablet daily . 0 MULTIVITAMIN TAB Take one(1) tablet daily. 0 No current facility-administered medications for this visit. documented in this encounter [facility] 03-26-2023 Miscellaneous Notes Patient scheduled 04/05. Called patient, no answer. Left voicemail. Good morning, Please reach out to this patient and help him make an appointment to see Dr. Garcia or Dr. Olivarez or Dr. Cervantes; whomever has the earliest appointment (for his kidney stones) Please use their cell phone to make this appointment. If they do not answer their cell phone, please use their home phone. If they do answer their home phone, please use their work phone or their emergency contact so that the appointment can be made. If they do not answer their cell phone, home phone, work phone or emergency contact number, please try again later until the appointment can be made. Please write a note saying spoke to patient - done or spoke to patient - complete or something to that effect once the appointment is made, so that I can close out the chart with the knowledge that this has been completed. Fernando Sal documented in this encounter [facility] 03-24-2023 Note HNO ID: [id number] Author: RT Daren(R) Service: ? Author Type: Beef Trimmer Type: Progress Notes Filed: 03/24/2023 2:47 PM Note Text: Radiology Service Progress Note PATIENT NAME: Kerwin Graham DATE OF SERVICE: March 24, 2023 TIME: 2:46 PM PATIENT IDENTITY VERIFICATION COMPLETED USING TWO (2) IDENTIFIERS: Name and Date of confirmed by patient verbally. FALL SCREENING: Has the patient had 2 falls in the last year or 1 fall with injury or currently using an Ambulatory Assistive Device (Walker, Cane, Wheelchair, Crutches, etc.)? No PATIENT GENDER DATA: Male PATIENT RELEVANT IMPLANT DATA REVIEWED: Yes RADIOLOGY DEPARTMENT: CT; Exam(s) Completed: Abdomen/Pelvis PERIPHERAL IV DATA: Not applicable SIGNED BY: RT Christy(R) March 24, 2023 2:46 PM [facility] 03-24-2023 History of Present illness Narrative Radiology Service Progress Note PATIENT NAME: Kerwin Graham DATE OF SERVICE: March 24, 2023 TIME: 2:46 PM PATIENT IDENTITY VERIFICATION COMPLETED USING TWO (2) IDENTIFIERS: Name and Date of confirmed by patient verbally. FALL SCREENING: Has the patient had 2 falls in the last year or 1 fall with injury or currently using an Ambulatory Assistive Device (Walker, Cane, Wheelchair, Crutches, etc.)? No PATIENT GENDER DATA: Male PATIENT RELEVANT IMPLANT DATA REVIEWED: Yes RADIOLOGY DEPARTMENT: CT; Exam(s) Completed: Abdomen/Pelvis PERIPHERAL IV DATA: Not applicable SIGNED BY: RT Christy(R) March 24, 2023 2:46 PM documented in this encounter [facility] 03-16-2023 Note HNO ID: [id number] Author: Radha Merino MD Service: ? Author Type: Physician Type: Progress Notes Filed: 03/16/2023 10:59 AM Note Text: This note was created using [employer]. Subjective Kerwin Graham is a 82 year old male. Kerwin presents today for follow-up for CT scan showing kidney stones. One was 1.1 cm at the vesicoureteral junction. The second was within the calyx of the kidney. He has a prior history of kidney stones. He is not currently in any discomfort. He states she has not noticed if he has passed the 1.1 cm kidney stone. He has appointment with urology tomorrow. Review of Systems Constitutional: Negative. HENT: Negative. Eyes: Negative. Respiratory: Negative. Cardiovascular: Negative. Gastrointestinal: Negative. Endocrine: Negative. Genitourinary: Negative. Musculoskeletal: Negative. Skin: Negative. Allergic/Immunologic: Negative. Neurological: Negative. Hematological: Negative. Psychiatric/Behavioral: Negative. Objective BP 130/76 (BP Site: Left Arm, BP Position: Sitting, BP Cuff Size: Regular Adult) Pulse 70 Temp 36.3 ?C (97.3 ?F) (Temporal) Resp 18 Ht 175.3 cm (5' 9 ) Wt 98.3 kg (216 lb 12.8 oz) SpO2 99% BMI 32.02 kg/m? Physical Exam Vitals reviewed. Constitutional: Appearance: Normal appearance. HENT: Head: Normocephalic and atraumatic. Nose: Nose normal. Eyes: Extraocular Movements: Extraocular movements intact. Pupils: Pupils are equal, round, and reactive to light. Cardiovascular: Rate and Rhythm: Normal rate and regular rhythm. Pulmonary: Effort: Pulmonary effort is normal. Breath sounds: Normal breath sounds. Abdominal: General: Bowel sounds are normal. Palpations: Abdomen is soft. Musculoskeletal: General: Normal range of motion. Cervical back: Normal range of motion and neck supple. Skin: General: Skin is warm and dry. Capillary Refill: Capillary refill takes less than 2 seconds. Neurological: General: No focal deficit present. Mental Status: He is alert and oriented to person, place, and time. Mental status is at baseline. Psychiatric: Mood and Affect: Mood normal. Behavior: Behavior normal. Assessment and Plan Encounter Diagnosis ICD-10-CM 1. Nephrolithiasis N20.0 Patient with pain-free nephrolithiasis currently. Follow-up with urology regarding further treatment of kidney stones. Radha Merino MD [facility] 03-16-2023 Note HNO ID: [id number] Author: Yumiko Hernandez MD Service: ? Author Type: Physician Type: Progress Notes Filed: 03/16/2023 10:25 AM Note Text: ENCOUNTER DEPARTMENT: UROL [facility] Consultation Request by: Radha Merino [id number] [facility] [id number] Chief Complaint: Nephrolithiasis History of Present Illness: 16 March 2023 - He says he had the CT scan because he has had constipation issues; he would have no urge to go, and then when he had to go he would have to strain; its a relatively new issue, and this is why he had the CT scan. The GI doctor recommended some medication for the constipation. He is taking this, and this is helping. The stones are completely incidental. He has had no pain from these at all. He has had kidney stones. He says he passed one in 2003 and it was painful - this was in [place]. This was the week that he moved to [place]. He had another in 2007; he passed this as well. In 2007 there was what sounds like an attempted ESWL but the stone could not be seen; he had what sounds like a stent and the stent was removed and the stone came out. He has a weak stream and he has had this since his 20s. No burning, no blood, no pushing or straining. 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 There is a 9 mm calculus in the midpole calyx of the right kidney. No significant hydronephrosis is seen. There is a 1.1 cm calculus at the left ureterovesical junction as it enters the urinary bladder. Normal bladder. There are prostatic calcifications. The prostate measures 4.5 cm by 4.5 cm. This causes indentation of the bladder base. There is a left-sided inguinal hernia containing adipose tissue. 16 February 2023 - creatinine <0.9 01 July 2004 - stone analysis - calcium oxalate stone PMH/ As below PSH/ As detailed below SH/ He is . 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 He doesn't smoke, never did. Rare alcohol. 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 Bladder neck obstruction Burning sensation of feet 02/22/2020 Calculus of kidney Constipation 04/06/2019 Dehydration 05/07/2022 Diastasis of rectus abdominis 12/07/2022 Diverticulosis of colon (without mention of hemorrhage) Diverticulosis Edema of lower extremity 12/07/2022 Erectile dysfunction 10/21/2020 Esophageal reflux Essential hypertension Essential hypertension, benign Gout Hyperlipidemia 08/04/2017 Hypertension, benign 04/23/2011 Hypertrophy of prostate with urinary obstruction and other lower urinary tract symptoms (LUTS) 03/11/2006 Impaired glucose tolerance 08/04/2017 Intermittent claudication (HCC) 12/07/2022 Low back pain 12/07/2022 Macrocytosis 03/29/2021 Neuropathy 10/21/2020 Nonrheumatic mitral valve regurgitation 12/07/2022 Obesity 12/07/2022 Other and unspecified hyperlipidemia Paresthesia of both hands 12/07/2022 Polyneuropathy 10/16/2022 Snoring PAST SURGICAL HISTORY Procedure Laterality Date COLONOSCOPY FLX DX W/COLLJ SPEC WHEN PFRMD 05/14/2005 Colonoscopy COLONOSCOPY FLX DX W/COLLJ SPEC WHEN PFRMD 11/11/2015 Colonoscopy EGD TRANSORAL BIOPSY SINGLE/MULTIPLE 11/24/2006 ORTHOPEDIC SURGERY HX PROSTATE NEEDLE BIOPSY ANY APPROACH Transrectal bx, prostate TONSILLECTOMY PRIMARY/SECONDARY Tonsillectomy Social History Tobacco Use Smoking status: Never Smokeless tobacco: Never Vaping Use Vaping Use: Never used Substance Use Topics Alcohol use: Yes Comment: occassionally Drug use: No REVIEW OF SYMPTOMS: GENERAL: No weight loss, malaise or fevers RESPIRATORY: Negative for cough, hemoptysis, wheezing, COPD, dyspnea or shortness of breath CARDIOVASCULAR: Negative for chest pain, leg swelling, hypertension, CHF or palpitations GI: No nausea, vomiting, or diarrhea : No history of dysuria, frequency or incontinence NEURO: No history of headaches, syncope, paralysis, seizures or tremors PHYSICAL EXAMINATION: General appearance: Well appearing, alert, in no acute distress, well-hydrated, well nourished. Skin: Skin color, texture, turgor normal, no rashes Back: Normal exam Abdomen: Normal abdominal exam, Abdomen soft, non-tender. No masses, organomegaly Extremities: No deformities, edema, skin discoloration Genitalia: Testicles without tenderness, masses. Penis Nml., Prostate firm without tenderness, masses or nodules, about 35g, and Bladder Nml. DATA REVIEWED: I reviewed the following labs: Creatinine (mg/dL) Date Value 02/16/2023 <0.9 12/10/ (more content not included)... [facility] 03-16-2023 History of Present illness Narrative This note was created using [employer]. Subjective Kerwin Graham is a 82 year old male. Kerwin presents today for follow-up for CT scan showing kidney stones. One was 1.1 cm at the vesicoureteral junction. The second was within the calyx of the kidney. He has a prior history of kidney stones. He is not currently in any discomfort. He states she has not noticed if he has passed the 1.1 cm kidney stone. He has appointment with urology tomorrow. Review of Systems Constitutional: Negative. HENT: Negative. Eyes: Negative. Respiratory: Negative. Cardiovascular: Negative. Gastrointestinal: Negative. Endocrine: Negative. Genitourinary: Negative. Musculoskeletal: Negative. Skin: Negative. Allergic/Immunologic: Negative. Neurological: Negative. Hematological: Negative. Psychiatric/Behavioral: Negative. Objective BP 130/76 (BP Site: Left Arm, BP Position: Sitting, BP Cuff Size: Regular Adult) Pulse 70 Temp 36.3 C (97.3 F) (Temporal) Resp 18 Ht 175.3 cm (5' 9 ) Wt 98.3 kg (216 lb 12.8 oz) SpO2 99% BMI 32.02 kg/m Physical Exam Vitals reviewed. Constitutional: Appearance: Normal appearance. HENT: Head: Normocephalic and atraumatic. Nose: Nose normal. Eyes: Extraocular Movements: Extraocular movements intact. Pupils: Pupils are equal, round, and reactive to light. Cardiovascular: Rate and Rhythm: Normal rate and regular rhythm. Pulmonary: Effort: Pulmonary effort is normal. Breath sounds: Normal breath sounds. Abdominal: General: Bowel sounds are normal. Palpations: Abdomen is soft. Musculoskeletal: General: Normal range of motion. Cervical back: Normal range of motion and neck supple. Skin: General: Skin is warm and dry. Capillary Refill: Capillary refill takes less than 2 seconds. Neurological: General: No focal deficit present. Mental Status: He is alert and oriented to person, place, and time. Mental status is at baseline. Psychiatric: Mood and Affect: Mood normal. Behavior: Behavior normal. Assessment and Plan Encounter Diagnosis ICD-10-CM 1. Nephrolithiasis N20.0 Patient with pain-free nephrolithiasis currently. Follow-up with urology regarding further treatment of kidney stones. Radha Merino MD Patient is in office for kidney stone. Patient stated that he has not passed kidney stones, 2 have been [address] by CT Scan. Results are present in patients chart. Patient is being seen by Urology tomorrow. No refills needed Mary Ford LPN March 15, 2023 3:56 PM documented in this encounter [facility] 03-16-2023 Instructions Yumiko Hernandez MD - 03/16/2023 10:08 AM EDT Patient instructions 1. I had a detailed discussion with you. I reviewed your CT report. I do not have the CT scan that you did at [facility] - this scan is needed to make a judgement as to what is the best approach. 2. I chava diagrams to illustrate my points. According to the scan, you have an 11mm stone in your left distal ureter. I explained that stones move and stones shift position, and this is why sometimes there is pain, and at other times there is not. Just because the pain goes doesn't mean the stone has passed, and I explained this with the aid of diagrams. According to the report, you also have a 9mm stone in your right kidney. According to the report, you have something called a horseshoe kidney. This means the kidneys are joined in the middle, and this is not that common. Please see my diagram for details. The CT itself is needed as the shape of the stones matter; a stone can be 11mm long and only 1 or 2 mm wide (and can be expected to pass), but a stone can be 11mm long and be 10mm wide (and this may not be expected to pass. 3. With the above caveats in mind, I discussed the [place] [employer] guidelines on the medical management of stones and the overall management of stones. I discussed a trial of passage. We discussed the percent chances of stone passage. If it passes, you would avoid surgery. If you fail to pass it, you may have continuing pain, nausea and vomiting with renal impairment and a risk of infection. The 90%/80%/70%.60%/50%/40% figures that I gave you for a 1mm, 2mm, 3mm, 4mm, 5mm and 6mm stone are not exact figures, but they fairly closely approximate the chances of stone passage and the figures are of course easy to remember. In order to pass the stone, you would need to drink enough fluids to pass 85 ounces a day. I recognise that this is not an easy thing to do. You should be aware that we lose fluids in sweat, breathing and stool. So this means that you may need to drink more than this volume in order to make this much urine. I stressed that it is not how much fluid you drink that counts - it is how much urine you make that determines if the stone will pass or not. Remember - you have two stones, one in the right kidney, and one in the left ureter. 4. Another other option is shock waves (some patients call this lithotripsy. Its full name is extracorporeal shock wave lithotripsy or ESWL for short). This is a procedure that is done in the operating room. You are put to sleep. I then direct shock waves towards the stone to break it up. The benefit is that if it were to work, it would be a non-invasive option. The downside is that shock waves are directed using plain x ray guidance. So even though the stone can be clearly seen on a plain CT scan - this does not mean that the stone can be seen on a plain x ray. So if were to choose this option, you would need to have a plain x ray to see if the stone is visible first. So someone attempted to do this ESWL/shock waves before, and they told you they could not find the stone. This may be because the stone was not dense enough to show up on a plain x ray - remember, shock waves are done under plain x ray guidance. The other downside is that the stone is in the left lower ureter, which is an area of relatively low success for shock waves. The purpose of shock waves is to break down larger stones into 2 to 3 mm stone fragments which you then have to pass; not all stones break, and not all stone fragments pass. If the stone breaks and the fragments get stuck, you would need further procedures to address this. In your case, the stone in the distal left ureter would not be amenable to shock waves; its possible the stone in the right kidney could be amenable to shock waves, but the anatomy of the horseshoe shaped kidney may be such that the stone fragments may not pass. 5. The third option is to place a stent. I am referring to the left ureteral stone in this instance. This in itself does not take care of the stone. This means that when you wake up, you would have both the stent and the stone. I chava diagrams to illustrate this point. The stent placement would help dilate the ureter. The stent can cause frequent urination, burning on urination, urinary urgency, back pain and blood in the urine amongst other things. Sometimes these symptoms are mild. Sometimes these symptoms are severe and very disruptive. I typically give a very limited supply of narcotic pain medication after this procedure. It is usually no more than 3 or 4 tablets, and I do not give refills. The discomfort from the stent is mainly a spasm type discomfort from the stent rubbing against the inner lining of the bladder, and I do give bladder spasm medications that help with this. On rare occasion, a stent cannot be placed because I cannot get past the stone, and in such a case, you might need a tube placed in your back to drain the kidney (nephrostomy tube). If this is needed, I would wake you up first and discuss this with you, and then I would refer you to an interventional radiologist, as it is they that place nephrostomy tubes. There is also a 2 to 10% risk of ureteral stent migration. This means the stent can fall out. I have never had this happen, but it is possible. If I place a stent, this means you would have to come back on another day at another time with another general anaesthetic to get the ureteroscopy. The ureteroscopy is the procedure where I go up into the ureter and then use a laser to break up the stone and remove the fragments. Patients often ask why we don't do the ureteroscopy (going up to get the stone) at the first sitting. Sometimes a ureteroscopy can't be done at the first sitting, because the ureter may be too small to accomodate the instrument (ureteroscope). I told you that on occasion, if someone has the experience and training, a urologist might go after the stone on the first sitting, and if we did this, a stent would be placed after the stone was removed, as there tends to be a lot of swelling around where the stone used to be. I explained the risks of ureteroscopy which includes but is not limited to ureteral stricture (scar), ureteral avulsion (where the ureter is ripped up off the bladder and an open surgery is needed to fix this), infection, bleeding, failure to retrieve the stone, heart attack, stroke, pneumonia, blood clots in the lungs and heart and . If we cannot do the ureteroscopy and only a stent is placed, you would have to come back a week or two later to have a ureteroscopy (look up the ureter with a small instrument) and laser lithotripsy of the stone. You would then come back a week or so later and have the stent removed in the office. In your case, if it is safe to do so, I might go ahead and retrieve the stone at the first sitting if it appeared safe to do so, but you should plan for just the stent placement, and you should plan to come back later for the ureteroscopy. So if you choose this option, you will either do: (1) stent placement (in the operating room) - to dilate the ureter (2) ureteroscopy + laser lithotripsy (in the operating room) (3) stent removal (in the office) Or alternatively, we may do: (1) ureteroscopy + laser lithotriopsy and stent placement (in the operating room) (2) stent removal (in the office) You should plan on the first plan, but sometimes I can do the second; it really depends on what I see at the time of surgery whether or not its safe to go after the stone at the first sitting or not. The other thing is that you have a right kidney stone and a left ureteral stone - so you could do stents on both sides, and then have ureteroscopies on both sides and then have both stents removed - but then of course, you would have 2 stents, so if a stent can cause urinary symptoms (see above), its reasonable to assume that 2 stents would cause twice as many issues. This is my consent form for bilateral stone surgery: Cystoscopy, Bilateral stent placement, Bilateral retrograde pyelogram, Possible Bilateral Ureteroscopy, Possible Bilateral Laser lithotripsy As we discussed, you have stones on both the right and the left side. Having understood all of the options, you have opted to have a stent placed, one on each side. My primary goal is to place the stents. If stones are left untreated, it can cause damage to your kidneys. Placing stents allows the urine to drain, and prevents kidney damage. If I place stents, when you wake up, you will have both the stents and the stones, and will need to come back on another day for a second procedure - this is the bilateral ureteroscopy and laser lithotripsy (to break up and remove the stone). You will then need to come back a third time to have the stents removed. The third visit to remove the stents is done in the office; the first two procedures are done in the operating room under general anaesthesia. Sometimes patients ask why we cannot plan for the stones to be retrieved during the very first procedure. The answer is that if the stones are stuck in the ureter, they are usually stuck because they are too large for the ureter; if they are too large for the ureter, then sometimes this means the ureters are too narrow to allow passage of the instruments necessary to retrieve the stone at the first sitting. If the stones are in the kidney, they are not blocking the flow, but again, sometimes the ureter is too narrow to allow the instruments to pass. Placing stents allows the ureters to passively dilate, and makes retrieving the stones a bit easier the second time around and may reduce the risk of complications. If it is at all possible, and if in my judgement at the time it is safe to do so, at the time of the first procedure, I will attempt to do the second procedure on the same day and pass a slender instrument up through the bladder and into the ureters and kidneys. This is called a ureteroscopy. If this can be done, the stones can be identified, fragmented and removed. If I do this, I will place stents at the end of the procedure. After the stone is removed, there tends to be a lot of swelling in the ureters. The ureters are very narrow tubes. If stents are not placed, this swelling can prevent the kidneys from draining well, and can lead to severe back pain. The stents are usually removed a week or two after the ureteroscopy (this stent removal is the third procedure), but sometimes you may need to have the stents for a longer period to allow healing. The majority of my patients go home the same day as their surgery. If I have any concerns, an overnight stay may be needed. As with all operations, there are potential complications, and not all can be predicted. No guarantee can be made as to outcome, cure or result. There are potential complications with anesthesia, which my anaesthesia colleagues will explain to you. This includes a risk of pneumonia, blood clots in the legs and lungs, lung collapes, heart attack, stroke, nerve injury and . There is a risk of creating a hole in the ureters. If this occurs, I may leave the stent in a bit longer to allow for healing. There is a risk of ureteral stricture. This can happen if the stone has been there for some time and became impacted in the ureter. If the stone appears impacted, I may leave the stent in for several weeks to try and prevent a stricture forming. If a stricture does occur, more surgery would be needed to correct this. There is a risk of ureteral avulsion. In this case, the ureter is pulled up off the bladder. If this were to occur, an open surgery would be needed to correct this problem. On occasion, I cannot place stents into the ureter. If this occurs, you will be awakened and I will discuss this with you further. If this occurs, you may need nephrostomy tubes, which are tubes in your back. This is an uncommon occurrence. If this is required, this is done by a radiologist. I also explained that stents can sometimes be associated with severe irritative symptoms. They can cause back pain, abdominal pain, frequent urination, bladder spasms, blood in the urine and other such problems. Sometimes patients have no symptoms from their stents, but the majority of patients do experience symptoms from their stents. These symptoms are usually manageable but for some patients these symptoms can be very troublesome and in rare instances can be overwhelming. If you have stents in both kidneys, the chances of having stent associated symptoms is higher. I have previously explained the rationale behind placing stents. There is also a risk of a kidney infection. I will give you antibiotics at the time of surgery and afterwards to try and avoid this. There is a small risk that you may not be able to urinate after your procedure. This is more common in older patients, and is more common in patients who have urinary symptoms to start off with. If you cannot urinate after the procedure, you will need a vigil catheter. This is a small plastic tube placed to drain the bladder. If this occurs, it will be removed a few days later. As discussed above, my primary goal is to place stents (procedure 1). There is always a possibility that I may not be able to get up into the ureters to remove the stones. In this case, stents can be placed and the stones will be removed on another trip to the operating room (procedure 2) will be needed to remove the stones. If it is possible, I will do procedure 1 and procedure 2 on the same day. Regardless of whether you have one procedure or two procedures, once the stones are gone, the stent that are placed will be removed in the office (procedure 3). Generally speaking, the results have been excellent and I expect all to go well. 6. After discussion, I would suggest you: (1) do some lab work today. (2) do a plain CT scan here - and this would guide the options. Yumiko Hernandez MD documented in this encounter [facility] 03-16-2023 History of Present illness Narrative ENCOUNTER DEPARTMENT: UROL [facility] Consultation Request by: Radha Merino [id number] [facility] [id number] Chief Complaint: Nephrolithiasis History of Present Illness: 16 March 2023 - He says he had the CT scan because he has had constipation issues; he would have no urge to go, and then when he had to go he would have to strain; its a relatively new issue, and this is why he had the CT scan. The GI doctor recommended some medication for the constipation. He is taking this, and this is helping. The stones are completely incidental. He has had no pain from these at all. He has had kidney stones. He says he passed one in 2003 and it was painful - this was in [place]. This was the week that he moved to [place]. He had another in 2007; he passed this as well. In 2007 there was what sounds like an attempted ESWL but the stone could not be seen; he had what sounds like a stent and the stent was removed and the stone came out. He has a weak stream and he has had this since his 20s. No burning, no blood, no pushing or straining. 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 There is a 9 mm calculus in the midpole calyx of the right kidney. No significant hydronephrosis is seen. There is a 1.1 cm calculus at the left ureterovesical junction as it enters the urinary bladder. Normal bladder. There are prostatic calcifications. The prostate measures 4.5 cm by 4.5 cm. This causes indentation of the bladder base. There is a left-sided inguinal hernia containing adipose tissue. 16 February 2023 - creatinine <0.9 01 July 2004 - stone analysis - calcium oxalate stone PMH/ As below PSH/ As detailed below SH/ He is . 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 He doesn't smoke, never did. Rare alcohol. 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 Bladder neck obstruction Burning sensation of feet 02/22/2020 Calculus of kidney Constipation 04/06/2019 Dehydration 05/07/2022 Diastasis of rectus abdominis 12/07/2022 Diverticulosis of colon (without mention of hemorrhage) Diverticulosis Edema of lower extremity 12/07/2022 Erectile dysfunction 10/21/2020 Esophageal reflux Essential hypertension Essential hypertension, benign Gout Hyperlipidemia 08/04/2017 Hypertension, benign 04/23/2011 Hypertrophy of prostate with urinary obstruction and other lower urinary tract symptoms (LUTS) 03/11/2006 Impaired glucose tolerance 08/04/2017 Intermittent claudication (HCC) 12/07/2022 Low back pain 12/07/2022 Macrocytosis 03/29/2021 Neuropathy 10/21/2020 Nonrheumatic mitral valve regurgitation 12/07/2022 Obesity 12/07/2022 Other and unspecified hyperlipidemia Paresthesia of both hands 12/07/2022 Polyneuropathy 10/16/2022 Snoring PAST SURGICAL HISTORY Procedure Laterality Date COLONOSCOPY FLX DX W/COLLJ SPEC WHEN PFRMD 05/14/2005 Colonoscopy COLONOSCOPY FLX DX W/COLLJ SPEC WHEN PFRMD 11/11/2015 Colonoscopy EGD TRANSORAL BIOPSY SINGLE/MULTIPLE 11/24/2006 ORTHOPEDIC SURGERY HX PROSTATE NEEDLE BIOPSY ANY APPROACH Transrectal bx, prostate TONSILLECTOMY PRIMARY/SECONDARY <AGE 14 Tonsillectomy Social History Tobacco Use Smoking status: Never Smokeless tobacco: Never Vaping Use Vaping Use: Never used Substance Use Topics Alcohol use: Yes Comment: occassionally Drug use: No REVIEW OF SYMPTOMS: GENERAL: No weight loss, malaise or fevers RESPIRATORY: Negative for cough, hemoptysis, wheezing, COPD, dyspnea or shortness of breath CARDIOVASCULAR: Negative for chest pain, leg swelling, hypertension, CHF or palpitations GI: No nausea, vomiting, or diarrhea : No history of dysuria, frequency or incontinence NEURO: No history of headaches, syncope, paralysis, seizures or tremors PHYSICAL EXAMINATION: General appearance: Well appearing, alert, in no acute distress, well-hydrated, well nourished. Skin: Skin color, texture, turgor normal, no rashes Back: Normal exam Abdomen: Normal abdominal exam, Abdomen soft, non-tender. No masses, organomegaly Extremities: No deformities, edema, skin discoloration Genitalia: Testicles without tenderness, masses. Penis Nml., Prostate firm without tenderness, masses or nodules, about 35g, and Bladder Nml. 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 There is a 9 mm calculus in the midpole calyx of the right kidney. No significant hydronephrosis is seen. There is a 1.1 cm calculus at the left ureterovesical junction as it enters the urinary bladder. Normal bladder. There are prostatic calcifications. The prostate measures 4.5 cm by 4.5 cm. This causes indentation of the bladder base. There is a left-sided inguinal hernia containing adipose tissue. Past medical history includes polyneuropathy, paresthesias of both hands, intermittent claudication, HTN, snoring, mitral regurgitation, HTN, Farias's esophagus, gastritis, constipation, gout, ED, elevated body mass index, low back pain, edema of lower extremities. Prostate biopsy in the late in [place] - not cancer Remote history of prostatitis PLAN: 1. Send urine for urinalysis and urine culture 2. We checked the patient's post void residual bladder volume using a hand held bladder ultrasound. This was done by my director of medical staff services under my direct supervision, and was indicated for the diagnosis of a weak urinary stream. The post void residual volume was 0mls. 3. Lab work, CT scan Patient instructions 1. I had a detailed discussion with you. I reviewed your CT report. I do not have the CT scan that you did at [facility] - this scan is needed to make a judgement as to what is the best approach. 2. I chava diagrams to illustrate my points. According to the scan, you have an 11mm stone in your left distal ureter. I explained that stones move and stones shift position, and this is why sometimes there is pain, and at other times there is not. Just because the pain goes doesn't mean the stone has passed, and I explained this with the aid of diagrams. According to the report, you also have a 9mm stone in your right kidney. According to the report, you have something called a horseshoe kidney. This means the kidneys are joined in the middle, and this is not that common. Please see my diagram for details. The CT itself is needed as the shape of the stones matter; a stone can be 11mm long and only 1 or 2 mm wide (and can be expected to pass), but a stone can be 11mm long and be 10mm wide (and this may not be expected to pass. 3. With the above caveats in mind, I discussed the [employer] [employer] guidelines on the medical management of stones and the overall management of stones. I discussed a trial of passage. We discussed the percent chances of stone passage. If it passes, you would avoid surgery. If you fail to pass it, you may have continuing pain, nausea and vomiting with renal impairment and a risk of infection. The 90%/80%/70%.60%/50%/40% figures that I gave you for a 1mm, 2mm, 3mm, 4mm, 5mm and 6mm stone are not exact figures, but they fairly closely approximate the chances of stone passage and the figures are of course easy to remember. In order to pass the stone, you would need to drink enough fluids to pass 85 ounces a day. I recognise that this is not an easy thing to do. You should be aware that we lose fluids in sweat, breathing and stool. So this means that you may need to drink more than this volume in order to make this much urine. I stressed that it is not how much fluid you drink that counts - it is how much urine you make that determines if the stone will pass or not. Remember - you have two stones, one in the right kidney, and one in the left ureter. 4. Another other option is shock waves (some patients call this lithotripsy. Its full name is extracorporeal shock wave lithotripsy or ESWL for short). This is a procedure that is done in the operating room. You are put to sleep. I then direct shock waves towards the stone to break it up. The benefit is that if it were to work, it would be a non-invasive option. The downside is that shock waves are directed using plain x ray guidance. So even though the stone can be clearly seen on a plain CT scan - this does not mean that the stone can be seen on a plain x ray. So if were to choose this option, you would need to have a plain x ray to see if the stone is visible first. So someone attempted to do this ESWL/shock waves before, and they told you they could not find the stone. This may be because the stone was not dense enough to show up on a plain x ray - remember, shock waves are done under plain x ray guidance. The other downside is that the stone is in the left lower ureter, which is an area of relatively low success for shock waves. The purpose of shock waves is to break down larger stones into 2 to 3 mm stone fragments which you then have to pass; not all stones break, and not all stone fragments pass. If the stone breaks and the fragments get stuck, you would need further procedures to address this. In your case, the stone in the distal left ureter would not be amenable to shock waves; its possible the stone in the right kidney could be amenable to shock waves, but the anatomy of the horseshoe shaped kidney may be such that the stone fragments may not pass. 5. The third option is to place a stent. I am referring to the left ureteral stone in this instance. This in itself does not take care of the stone. This means that when you wake up, you would have both the stent and the stone. I chava diagrams to illustrate this point. The stent placement would help dilate the ureter. The stent can cause frequent urination, burning on urination, urinary urgency, back pain and blood in the urine amongst other things. Sometimes these symptoms are mild. Sometimes these symptoms are severe and very disruptive. I typically give a very limited supply of narcotic pain medication after this procedure. It is usually no more than 3 or 4 tablets, and I do not give refills. The discomfort from the stent is mainly a spasm type discomfort from the stent rubbing against the inner lining of the bladder, and I do give bladder spasm medications that help with this. On rare occasion, a stent cannot be placed because I cannot get past the stone, and in such a case, you might need a tube placed in your back to drain the kidney (nephrostomy tube). If this is needed, I would wake you up first and discuss this with you, and then I would refer you to an interventional radiologist, as it is they that place nephrostomy tubes. There is also a 2 to 10% risk of ureteral stent migration. This means the stent can fall out. I have never had this happen, but it is possible. If I place a stent, this means you would have to come back on another day at another time with another general anaesthetic to get the ureteroscopy. The ureteroscopy is the procedure where I go up into the ureter and then use a laser to break up the stone and remove the fragments. Patients often ask why we don't do the ureteroscopy (going up to get the stone) at the first sitting. Sometimes a ureteroscopy can't be done at the first sitting, because the ureter may be too small to accomodate the instrument (ureteroscope). I told you that on occasion, if someone has the experience and training, a urologist might go after the stone on the first sitting, and if we did this, a stent would be placed after the stone was removed, as there tends to be a lot of swelling around where the stone used to be. I explained the risks of ureteroscopy which includes but is not limited to ureteral stricture (scar), ureteral avulsion (where the ureter is ripped up off the bladder and an open surgery is needed to fix this), infection, bleeding, failure to retrieve the stone, heart attack, stroke, pneumonia, blood clots in the lungs and heart and . If we cannot do the ureteroscopy and only a stent is placed, you would have to come back a week or two later to have a ureteroscopy (look up the ureter with a small instrument) and laser lithotripsy of the stone. You would then come back a week or so later and have the stent removed in the office. In your case, if it is safe to do so, I might go ahead and retrieve the stone at the first sitting if it appeared safe to do so, but you should plan for just the stent placement, and you should plan to come back later for the ureteroscopy. So if you choose this option, you will either do: (1) stent placement (in the operating room) - to dilate the ureter (2) ureteroscopy + laser lithotripsy (in the operating room) (3) stent removal (in the office) Or alternatively, we may do: (1) ureteroscopy + laser lithotriopsy and stent placement (in the operating room) (2) stent removal (in the office) You should plan on the first plan, but sometimes I can do the second; it really depends on what I see at the time of surgery whether or not its safe to go after the stone at the first sitting or not. The other thing is that you have a right kidney stone and a left ureteral stone - so you could do stents on both sides, and then have ureteroscopies on both sides and then have both stents removed - but then of course, you would have 2 stents, so if a stent can cause urinary symptoms (see above), its reasonable to assume that 2 stents would cause twice as many issues. This is my consent form for bilateral stone surgery: Cystoscopy, Bilateral stent placement, Bilateral retrograde pyelogram, Possible Bilateral Ureteroscopy, Possible Bilateral Laser lithotripsy As we discussed, you have stones on both the right and the left side. Having understood all of the options, you have opted to have a stent placed, one on each side. My primary goal is to place the stents. If stones are left untreated, it can cause damage to your kidneys. Placing stents allows the urine to drain, and prevents kidney damage. If I place stents, when you wake up, you will have both the stents and the stones, and will need to come back on another day for a second procedure - this is the bilateral ureteroscopy and laser lithotripsy (to break up and remove the stone). You will then need to come back a third time to have the stents removed. The third visit to remove the stents is done in the office; the first two procedures are done in the operating room under general anaesthesia. Sometimes patients ask why we cannot plan for the stones to be retrieved during the very first procedure. The answer is that if the stones are stuck in the ureter, they are usually stuck because they are too large for the ureter; if they are too large for the ureter, then sometimes this means the ureters are too narrow to allow passage of the instruments necessary to retrieve the stone at the first sitting. If the stones are in the kidney, they are not blocking the flow, but again, sometimes the ureter is too narrow to allow the instruments to pass. Placing stents allows the ureters to passively dilate, and makes retrieving the stones a bit easier the second time around and may reduce the risk of complications. If it is at all possible, and if in my judgement at the time it is safe to do so, at the time of the first procedure, I will attempt to do the second procedure on the same day and pass a slender instrument up through the bladder and into the ureters and kidneys. This is called a ureteroscopy. If this can be done, the stones can be identified, fragmented and removed. If I do this, I will place stents at the end of the procedure. After the stone is removed, there tends to be a lot of swelling in the ureters. The ureters are very narrow tubes. If stents are not placed, this swelling can prevent the kidneys from draining well, and can lead to severe back pain. The stents are usually removed a week or two after the ureteroscopy (this stent removal is the third procedure), but sometimes you may need to have the stents for a longer period to allow healing. The majority of my patients go home the same day as their surgery. If I have any concerns, an overnight stay may be needed. As with all operations, there are potential complications, and not all can be predicted. No guarantee can be made as to outcome, cure or result. There are potential complications with anesthesia, which my anaesthesia colleagues will explain to you. This includes a risk of pneumonia, blood clots in the legs and lungs, lung collapes, heart attack, stroke, nerve injury and . There is a risk of creating a hole in the ureters. If this occurs, I may leave the stent in a bit longer to allow for healing. There is a risk of ureteral stricture. This can happen if the stone has been there for some time and became impacted in the ureter. If the stone appears impacted, I may leave the stent in for several weeks to try and prevent a stricture forming. If a stricture does occur, more surgery would be needed to correct this. There is a risk of ureteral avulsion. In this case, the ureter is pulled up off the bladder. If this were to occur, an open surgery would be needed to correct this problem. On occasion, I cannot place stents into the ureter. If this occurs, you will be awakened and I will discuss this with you further. If this occurs, you may need nephrostomy tubes, which are tubes in your back. This is an uncommon occurrence. If this is required, this is done by a radiologist. I also explained that stents can sometimes be associated with severe irritative symptoms. They can cause back pain, abdominal pain, frequent urination, bladder spasms, blood in the urine and other such problems. Sometimes patients have no symptoms from their stents, but the majority of patients do experience symptoms from their stents. These symptoms are usually manageable but for some patients these symptoms can be very troublesome and in rare instances can be overwhelming. If you have stents in both kidneys, the chances of having stent associated symptoms is higher. I have previously explained the rationale behind placing stents. There is also a risk of a kidney infection. I will give you antibiotics at the time of surgery and afterwards to try and avoid this. There is a small risk that you may not be able to urinate after your procedure. This is more common in older patients, and is more common in patients who have urinary symptoms to start off with. If you cannot urinate after the procedure, you will need a vigil catheter. This is a small plastic tube placed to drain the bladder. If this occurs, it will be removed a few days later. As discussed above, my primary goal is to place stents (procedure 1). There is always a possibility that I may not be able to get up into the ureters to remove the stones. In this case, stents can be placed and the stones will be removed on another trip to the operating room (procedure 2) will be needed to remove the stones. If it is possible, I will do procedure 1 and procedure 2 on the same day. Regardless of whether you have one procedure or two procedures, once the stones are gone, the stent that are placed will be removed in the office (procedure 3). Generally speaking, the results have been excellent and I expect all to go well. 6. After discussion, I would suggest you: (1) do some lab work today. (2) do a plain CT scan here - and this would guide the options. Medical Decision Making: Problems: Moderate: New problem with uncertain prognosis Data: Unique test result(s) reviewed: 3+ Unique test(s) ordered: 3+ Medical Decision Making Level: 4 - Moderate Yumiko Hernandez MD documented in this encounter [facility] 03-15-2023 Note HNO ID: [id number] Author: Mary Ford LPN Service: ? Author Type: LICENSED NURSE Type: Progress Notes Filed: 03/16/2023 10:59 AM Note Text: Patient is in office for kidney stone. Patient stated that he has not passed kidney stones, 2 have been identified by CT Scan. Results are present in patients chart. Patient is being seen by Urology tomorrow. No refills needed Mary Ford LPN March 15, 2023 3:56 PM [facility] 03-11-2023 Miscellaneous Notes Patient calling with ongoing kidney stone symptoms. Patient was advised to schedule an appointment with Urology. Patient denies any new or worsening symptoms of which a provider is not aware:Yes. Conferenced back to JAYNE Tsang for appointment scheduling. GO TO THE EMERGENCY ROOM OR CALL 911 IF: * You develop any new symptoms * Your condition worsens * You are concerned or anxious about your condition for any other reason. If you have any questions, you can call Nurse inclusion special education teacher back. documented in this encounter [facility] documented as of this encounter (statuses as of 03/16/2023) [facility] History of Past illness Narrative* Problem Noted Date Resolved Date Intermittent claudication 12/07/20222022 documented as of this encounter (statuses as of 03/16/2023) [address]16-2023 History of Past illness Narrative* Problem Noted Date Resolved Date Intermittent claudication 12/07/20222022 documented as of this encounter (statuses as of 03/17/2023) [address]16-2023 History of Past illness Narrative* Problem Noted Date Resolved Date Intermittent claudication 12/07/20222022 documented as of this encounter (statuses as of 03/18/2023) [address]16-2023 History of Past illness Narrative* Problem Noted Date Resolved Date Intermittent claudication 12/07/20222022 documented as of this encounter (statuses as of 03/18/2023) [facility]01-16-2023 History of Past illness Narrative* Problem Noted Date Resolved Date Intermittent claudication 12/07/20222022 documented as of this encounter (statuses as of 03/25/2023) [address]16-2023 History of Past illness Narrative* Problem Noted Date Resolved Date Intermittent claudication 12/07/20222022 documented as of this encounter (statuses as of 03/26/2023) [address]16-2023 History of Past illness Narrative* Problem Noted Date Resolved Date Intermittent claudication 12/07/20222022 documented as of this encounter (statuses as of 04/05/2023) [address]16-2023 History of Past illness Narrative* Problem Noted Date Resolved Date Intermittent claudication 12/07/20222022 documented as of this encounter (statuses as of 04/21/2023) [address]16-2023 History of Past illness Narrative* Problem Noted Date Resolved Date Intermittent claudication 12/07/20222022 documented as of this encounter (statuses as of 04/22/2023) [address]16-2023 History of Past illness Narrative* Problem Noted Date Resolved Date Intermittent claudication 12/07/20222022 documented as of this encounter (statuses as of 04/28/2023) [address]16-2023 History of Past illness Narrative* Problem Noted Date Diagnosed Date Resolved Date Intermittent claudication 12/07/2022 documented as of this encounter (statuses as of 06/07/2023) [address]16-2023 History of Past illness Narrative* Problem Noted Date Diagnosed Date Resolved Date Intermittent claudication 12/07/2022 documented as of this encounter (statuses as of 06/21/2023) [address]16-2023 History of Past illness Narrative* Problem Noted Date Diagnosed Date Resolved Date Intermittent claudication 12/07/2022 documented as of this encounter (statuses as of 09/26/2023) [address]16-2023 History of Past illness Narrative* Problem Noted Date Diagnosed Date Resolved Date Intermittent claudication 12/07/2022 documented as of this encounter (statuses as of 10/05/2023) [address]16-2023 History of Past illness Narrative* Problem Noted Date Diagnosed Date Resolved Date Intermittent claudication 12/07/2022 documented as of this encounter (statuses as of 10/21/2023) [address]16-2023 History of Past illness Narrative* Problem Noted Date Diagnosed Date Resolved Date Intermittent claudication 12/07/2022 documented as of this encounter (statuses as of 10/21/2023) [address]16-2023 History of Past illness Narrative* Problem Noted Date Diagnosed Date Resolved Date Intermittent claudication 12/07/2022 documented as of this encounter (statuses as of 10/22/2023) [address]16-2023 History of Past illness Narrative* Problem Noted Date Diagnosed Date Resolved Date Intermittent claudication 12/07/2022 documented as of this encounter (statuses as of 10/22/2023) [address]16-2023 History of Past illness Narrative* Problem Noted Date Diagnosed Date Resolved Date Intermittent claudication 12/07/2022 documented as of this encounter (statuses as of 12/31/2023) [place] [address]-16-2023 History of Past illness Narrative* Problem Noted Date Diagnosed Date Resolved Date Intermittent claudication 12/07/2022 documented as of this encounter (statuses as of 01/20/2024) [facility]01-16-2023 History of Present illness Narrative* Radha Merino MD - 12/07/2022 11:24 AM EST This note was created using [employer]. Subjective Kerwin Graham is a 82 year old male. Kerwin presents today for follow-up for multiple medical problems. See list. His chronic medical problems have been stable. His blood pressure is under good control on his current regimen. He has no new complaints today. Review of Systems Constitutional: Negative. HENT: Negative. Eyes: Negative. Respiratory: Negative. Cardiovascular: Negative. Gastrointestinal: Negative. Endocrine: Negative. Genitourinary: Negative. Musculoskeletal: Negative. Skin: Negative. Allergic/Immunologic: Negative. Neurological: Negative. Hematological: Negative. Psychiatric/Behavioral: Negative. Objective BP 138/70 (BP Site: Left Arm, BP Position: Sitting, BP Cuff Size: Regular Adult) Pulse 73 Temp 36.1 C (96.9 F) (Temporal) Resp 16 Ht 175.3 cm (5' 9 ) Wt 96.6 kg (213 lb) SpO2 98% BMI 31.45 kg/m Physical Exam Vitals reviewed. Constitutional: Appearance: Normal appearance. HENT: Head: Normocephalic and atraumatic. Nose: Nose normal. Eyes: Extraocular Movements: Extraocular movements intact. Pupils: Pupils are equal, round, and reactive to light. Cardiovascular: Rate and Rhythm: Normal rate and regular rhythm. Pulmonary: Effort: Pulmonary effort is normal. Breath sounds: Normal breath sounds. Abdominal: General: Bowel sounds are normal. Palpations: Abdomen is soft. Musculoskeletal: General: Normal range of motion. Cervical back: Normal range of motion and neck supple. Skin: General: Skin is warm and dry. Capillary Refill: Capillary refill takes less than 2 seconds. Neurological: General: No focal deficit present. Mental Status: He is alert and oriented to person, place, and time. Mental status is at baseline. Psychiatric: Mood and Affect: Mood normal. Behavior: Behavior normal. Assessment and Plan Kerwin was seen today for 6 month exam. Diagnoses and all orders for this visit: Chronic constipation - CONSULT TO GASTROENTEROLOGY; Future Pure hypercholesterolemia - COMP METABOLIC PANEL; Future - LIPID PANEL BASIC; Future Hypertension, essential - COMP METABOLIC PANEL; Future Hyperglycemia - HGB A1C; Future Other orders - Valsartan-hydroCHLOROthiazide 320-25 mg per tablet; Take 1 tablet by mouth once daily. - omega-3 acid ethyl esters (LOVAZA) 1 gram capsule; Take 2 capsules by mouth twice daily. - Discontinue: sildenafil (REVATIO) 20 mg tablet; Take 1 tablet by mouth as needed. 2 tablets 1 hour before sexual activity - sildenafil (REVATIO) 20 mg tablet; Take 1 tablet by mouth as needed. 2 tablets 1 hour before sexual activity * Belinda Portillo LPN - 12/07/2022 9:56 AM EST Patient here today for 6 month office visit. No concerns at this time. Belinda Portillo LPN December 07, 2022 10:13 AM documented in this encounter[facility] Miscellaneous Notes* Telephone Encounter - Noemi Blakely LPN - 09/02/2022 8:57 AM EDT Pharmacy faxed requesting the following refill. Requested Prescriptions Pending Prescriptions Disp Refills omeprazole (PRILOSEC) 20 mg capsule [Pharmacy Med Name: Omeprazole 20 MG Oral Capsule Delayed Release] 90 capsule 3 Sig: Take 1 capsule by mouth once daily. Patient last appointment: 08/29/2022 Patient Phone numbers: [phone] (home) Request is for script(s) to be escript to pharmacy. Noemi Blakely LPN documented in this encounterProm[facility]10-10-[facility]22 Miscellaneous Notes* Telephone Encounter - Mary Ford LPN - 08/31/2022 11:11 AM EDT Requested Prescriptions Pending Prescriptions Disp Refills simvastatin (ZOCOR) 40 mg tablet [Pharmacy Med Name: Simvastatin 40 MG Oral Tablet] 90 tablet 3 Sig: TAKE 1 TABLET BY MOUTH ONCE DAILY DIRECTED Mary Ford LPN August 31, 2022 11:11 AM documented in this encounterPromedica [facility]09-09-2022 Miscellaneous Notes* Telephone Encounter - Noemi Blakely LPN - 07/31/2022 11:19 AM EDT Pharmacy faxed requesting the following refill. Requested Prescriptions Pending Prescriptions Disp Refills allopurinol (ZYLOPRIM) 100 mg tablet [Pharmacy Med Name: Allopurinol 100 MG Oral Tablet] 180 tablet3 Sig: TAKE 2 TABLETS BY MOUTH ONCE DAILY DIRECTED Patient last appointment: 06/30/2022 Patient Phone numbers: [phone] (home) Request is for script(s) to be escript to mail order [facility]. Noemi Blakely LPN documented in this encounterPromedica [facility]08-09-2022 Miscellaneous Notes* Telephone Encounter - Mary Ford LPN - 06/30/2022 10:28 AM EDT Patient notified of denied prior authorization of sildenafil. Patient stated that he pays out of pocket for the medication and does not turn it into insurance that if we can call in prescription for refills to pharmacy and state that he pays out of pocket that would be helpful. This nurse added note to medication in chart with directions Mary Ford LPN June 30, 2022 10:30 AM documented in this encounterPromedica [facility]08-03-2022 History of Present illness Narrative* Radha Merino MD - 06/24/2022 11:05 AM EDT This note was created using [employer]. Subjective Kerwin Graham is a 81 year old male. Kerwin presents today for follow-up for his recent gastroenteritis and COVID infection. His symptoms of both are improved. His blood pressure is under excellent control. He was dehydrated during this but has since improved with hydration in the emergency room and home hydration. He has no new complaints today. Review of Systems Constitutional: Negative. HENT: Negative. Eyes: Negative. Respiratory: Negative. Cardiovascular: Negative. Gastrointestinal: Negative. Endocrine: Negative. Genitourinary: Negative. Musculoskeletal: Negative. Skin: Negative. Allergic/Immunologic: Negative. Neurological: Negative. Hematological: Negative. Psychiatric/Behavioral: Negative. Objective BP 118/78 (BP Site: Left Arm, BP Position: Sitting, BP Cuff Size: Large Adult) Pulse 68 Temp 36.6 C (97.9 F) (Temporal) Resp 18 Ht 175.3 cm (5' 9 ) Wt 96.7 kg (213 lb 3.2 oz) SpO2 98% BMI 31.48 kg/m Physical Exam Vitals reviewed. Constitutional: Appearance: Normal appearance. HENT: Head: Normocephalic and atraumatic. Nose: Nose normal. Eyes: Extraocular Movements: Extraocular movements intact. Pupils: Pupils are equal, round, and reactive to light. Cardiovascular: Rate and Rhythm: Normal rate and regular rhythm. Pulmonary: Effort: Pulmonary effort is normal. Breath sounds: Normal breath sounds. Abdominal: General: Bowel sounds are normal. Palpations: Abdomen is soft. Musculoskeletal: General: Normal range of motion. Cervical back: Normal range of motion and neck supple. Skin: General: Skin is warm and dry. Capillary Refill: Capillary refill takes less than 2 seconds. Neurological: General: No focal deficit present. Mental Status: He is alert and oriented to person, place, and time. Mental status is at baseline. Psychiatric: Mood and Affect: Mood normal. Behavior: Behavior normal. Assessment and Plan Kerwin was seen today for follow up. Diagnoses and all orders for this visit: Gastroenteritis Personal history of COVID-19 ED (erectile dysfunction) of organic origin Other orders - sildenafil (REVATIO) 20 mg tablet; Take 1 tablet by mouth as needed. 2 tablets 1 hour before sexual activity Continue to monitor symptoms. Improve hydration. Increase activity as tolerated. Follow-up in 3 months for regular follow-up documented in this encounterPromedica [facility]08-03-2022 Nurse Note* Mary Ford LPN - 06/24/2022 10:19 AM EDT Follow up, was dehydrated due to GI virus recently , currently no issues. Mary Ford LPN June 24, 2022 10:20 AM [facility] Diagnosis Gastroenteritis- Primary Other and unspecified noninfectious gastroenteritis and colitis Personal history of COVID-19 ED (erectile dysfunction) of organic origin Impotence of organic origin documented [facility]* Diagnosis Chronic constipation- Primary Unspecified constipation Pure hypercholesterolemia Hypertension, essential Unspecified essential hypertension Hyperglycemia Other abnormal glucose documented in this encounter [facility]* Diagnosis History of nephrolithiasis- Primary Personal history of urinary calculi documented in [facility]* Diagnosis Nephrolithiasis- Primary Calculus of kidney documented in this encounter [facility]* Diagnosis History of UTI- Primary Personal history of urinary (tract) infection [facility]* Diagnosis History of nephrolithiasis- Primary Personal history of urinary calculi documented in this [facility]* 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 Left nephrolithiasis Left ureteral stone documented in this [facility]* 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 Left nephrolithiasis documented in this [facility]* Diagnosis Wellness examination- Primary Chronic midline low back pain without sciatica Hypertension, essential Unspecified essential hypertension Pure hypercholesterolemia Screening for deficiency anemia Screening for other and unspecified deficiency anemia documented in this [facility]* Diagnosis History of nephrolithiasis Personal history of urinary calculi documented in this encounter [facility]* Diagnosis Hyperparathyroidism (HCC) Hyperparathyroidism, unspecified documented in this [facility]* Diagnosis Phosphate calculi Urinary calculus, unspecified Hyperparathyroid (HCC) documented in this [facility]* Diagnosis Hyperparathyroidism (HCC)- Primary Hyperparathyroidism, unspecified documented in this encounter [facility] for referral (narrative)* Diagnostic Procedure Only (Routine) - Pending Review Specialty Diagnoses / Procedures Referred By Contac t Referred To Contact XR IMAGING Diagnoses Horseshoe kidney Left nephrolithiasis Procedures XR ABDOMEN 1V SPECIFY RADIOLOGIC EXAM ABDOMEN 1 VIEW Tino Garcia MD [address] [facility] [address] [place] [phone] Xr Imaging Referral ID Status Reason Start Date Expiration Date Visits Requested Visits Authorized [id number] Pending Review Auto-Generat ed Referral 04/28/2023 05/27/2024 1 1 [facility] for referral (narrative)* Diagnostic Procedure Only (Routine) - Closed Specialty Diagnoses / Procedures Referred By Contac t Referred To Contact XR IMAGING Diagnoses Hyperparathyroidism (HCC) Procedures DXA-FOREARM SKELETON DXA BONE DENSITY STUDY 1/>SITES Eleonora Taylor MD [address] [place] [address] Xr Imaging [place] [address] Referral ID Status Reason Start Date Expiration Date V isits Requested Visits Authorized [id number] Closed Auto-Generate d Referral 10/11/2023 11/09/2024 1 1 [facility] for visit Narrative* Diagnostic Procedure Only (Routine) - Closed Specialty Diagnoses / Procedures Referred By Contac t Referred To Contact XR IMAGING Diagnoses Hyperparathyroidism (HCC) Procedures DXA-FOREARM SKELETON DXA BONE DENSITY STUDY 1/>SITES Eleonora Taylor MD [address] [phone] Xr Imaging [id number] Referral ID Status Reason Start Date Expiration Date V isits Requested Visits Authorized [id number] Closed Auto-Generate d Referral 10/11/2023 11/09/2024 1 1 [facility] for visit Narrative* Diagnostic Procedure Only (Routine) - Closed Specialty Diagnoses / Procedures Referred By Contac t Referred To Contact MOLECULAR & FUNCTIONAL IMAGING Diagnoses Hyperparathyroidism (HCC) Procedures NM PARATHYROID W SPECT/CT PARATHYROID IMAGING W/TOMOGRAPHIC SPECT & CT Eleonora Hillman MD [address] [place] [address] Molecular & Functional Imaging [address] [place] [phone] Referral ID Status Reason Start Date Expiration Date V isits Requested Visits Authorized [id number] Closed Auto-Generate d Referral 10/11/2023 11/09/2024 1 1 [facility] Advance Directives No Advanced Directives Records FoundDocuments on File Type Date Recorded Patient Wearing Apparel Presser Expl anation Advance Directive(s) 05/18/2016 11:04 AM Advance Directive(s) 11/11/2015 9:21 AM Documents on File Type Date Recorded Patient Wearing Apparel Presser Expl anation Advance Directive(s) 05/18/2016 11:04 AM Advance Directive(s) 11/11/2015 9:21 AM Documents on File Type Date Recorded Patient Wearing Apparel Presser Expl anation Advance Directive(s) 11/11/2015 9:21 AM Documents on File Type Date Recorded Patient Wearing Apparel Presser Expl anation Advance Directive(s) 11/11/2015 9:21 AM Reason for Referral Specialty Diagnoses / Procedures Referred By Contac t Referred To Contact Radha Merino MD [address] [place] [address] Referral ID Status Reason Start Date Expiration Date V isits Requested Visits Authorized [id number] Pending Review 1 1 Specialty Diagnoses / Procedures Referred By Contac t Referred To Contact Gastroenterology Diagnoses Chronic constipation Procedures CONSULT TO GASTROENTEROLOGY OFFICE/OUTPATIENT [facility] 60-74 MINUTES Radha Merino MD [address] [place] [address] Referral ID Status Reason Start Date Expiration Date Visits Requested Visits Authorized [id number] Authorized PCP Requested Referral 12/07/2022 12/07/2023 1 1 Specialty Diagnoses / Procedures Referred By Contac t Referred To Contact CT IMAGING Diagnoses History of nephrolithiasis Procedures CT FLANK WO IVCON CT ABD & PEL[place] [address] [place] [address] Ct Imaging Referral ID Status Reason Start Date Expiration Date Visits Requested Visits Authorized [id number] Authorized Auto-Generat ed Referral 03/16/2023 04/14/2024 1 1 Specialty Diagnoses / Procedures Referred By Contac t Referred To Contact Urology Diagnoses History of nephrolithiasis Procedures CONSULT TO UROLOGY OFFICE/OUTPATIENT [facility] 60-[place] [address] [address] [place] [phone] Referral ID Status Reason Start Date Expiration Date Visits Requested Visits Authorized [id number] Authorized PCP Requested Referral 03/25/2023 03/24/2024 1 1 Specialty Diagnoses / Procedures Referred By Contac t Referred To Contact Orthopedics Diagnoses Chronic midline low back pain without sciatica Procedures CONSULT TO ORTHOPAEDICS OFFICE/OUTPATIENT [facility] 60-74 MINUTES Radha Merino MD [address] [place] [address] Referral ID Status Reason Start Date Expiration Date Visits Requested Visits Authorized [id number] Authorized PCP Requested Referral 06/07/2023 06/06/2024 1 1 Specialty Diagnoses / Procedures Referred By Contac t Referred To Contact CT IMAGING Diagnoses History of nephrolithiasis Procedures CT FLANK WO IVCON CT ABD & PELVIS W/[place] [address] [address] [place] [phone] Imaging [place] [address] Referral ID Status Reason Start Date Expiration Date V isits Requested Visits Authorized [id number] Closed Auto-Generate d Referral 03/16/2023 04/14/2024 1 1 Summary Purpose Family History No Family History Records FoundNo Family History Records FoundNo Family History Records Found Additional Source Comments Source Comments (unrecognize d section and content) In the event this informatio n is protected by the Federal Confidentiality of Alcohol and Drug Abuse Patient Records regulations: The Federal rules restrict any use of the information to criminally investigate or prosecute any alcohol or drug abuse patient.[facility] the event this information is protected by the Federal Confidentiality of Alcohol and Drug Abuse Patient Records regulations: The Federal rules restrict any use of the information to criminally investigate or prosecute any alcohol or drug abuse patient.[facility] the event this information is protected by the Federal Confidentiality of Alcohol and Drug Abuse Patient Records regulations: The Federal rules restrict any use of the information to criminally investigate or prosecute any alcohol or drug abuse patient.[facility] the event this information is protected by the Federal Confidentiality of Alcohol and Drug Abuse Patient Records regulations: The Federal rules restrict any use of the information to criminally investigate or prosecute any alcohol or drug abuse patient.[facility] the event this information is protected by the Federal Confidentiality of Alcohol and Drug Abuse Patient Records regulations: The Federal rules restrict any use of the information to criminally investigate or prosecute any alcohol or drug abuse patient.[facility] the event this information is protected by the Federal Confidentiality of Alcohol and Drug Abuse Patient Records regulations: The Federal rules restrict any use of the information to criminally investigate or prosecute any alcohol or drug abuse patient.[facility] the event this information is protected by the Federal Confidentiality of Alcohol and Drug Abuse Patient Records regulations: The Federal rules restrict any use of the information to criminally investigate or prosecute any alcohol or drug abuse patient.[facility] the event this information is protected by the Federal Confidentiality of Alcohol and Drug Abuse Patient Records regulations: The Federal rules restrict any use of the information to criminally investigate or prosecute any alcohol or drug abuse patient.[facility] the event this information is protected by the Federal Confidentiality of Alcohol and Drug Abuse Patient Records regulations: The Federal rules restrict any use of the information to criminally investigate or prosecute any alcohol or drug abuse patient.[facility] the event this information is protected by the Federal Confidentiality of Alcohol and Drug Abuse Patient Records regulations: The Federal rules restrict any use of the information to criminally investigate or prosecute any alcohol or drug abuse patient.[facility] the event this information is protected by the Federal Confidentiality of Alcohol and Drug Abuse Patient Records regulations: The Federal rules restrict any use of the information to criminally investigate or prosecute any alcohol or drug abuse patient.[facility] the event this information is protected by the Federal Confidentiality of Alcohol and Drug Abuse Patient Records regulations: The Federal rules restrict any use of the information to criminally investigate or prosecute any alcohol or drug abuse patient.[facility] the event this information is protected by the Federal Confidentiality of Alcohol and Drug Abuse Patient Records regulations: The Federal rules restrict any use of the information to criminally investigate or prosecute any alcohol or drug abuse patient.[facility] the event this information is protected by the Federal Confidentiality of Alcohol and Drug Abuse Patient Records regulations: The Federal rules restrict any use of the information to criminally investigate or prosecute any alcohol or drug abuse patient.[facility] the event this information is protected by the Federal Confidentiality of Alcohol and Drug Abuse Patient Records regulations: The Federal rules restrict any use of the information to criminally investigate or prosecute any alcohol or drug abuse patient.[facility] the event this information is protected by the Federal Confidentiality of Alcohol and Drug Abuse Patient Records regulations: The Federal rules restrict any use of the information to criminally investigate or prosecute any alcohol or drug abuse patient.[facility] the event this information is protected by the Federal Confidentiality of Alcohol and Drug Abuse Patient Records regulations: The Federal rules restrict any use of the information to criminally investigate or prosecute any alcohol or drug abuse patient.[facility] the event this information is protected by the Federal Confidentiality of Alcohol and Drug Abuse Patient Records regulations: The Federal rules restrict any use of the information to criminally investigate or prosecute any alcohol or drug abuse patient.[facility] HospitalIn the event this information is protected by the Federal Confidentiality of Alcohol and Drug Abuse Patient Records regulations: The Federal rules restrict any use of the information to criminally investigate or prosecute any alcohol or drug abuse patient.[facility] HospitalIn the event this information is protected by the Federal Confidentiality of Alcohol and Drug Abuse Patient Records regulations: The Federal rules restrict any use of the information to criminally investigate or prosecute any alcohol or drug abuse patient.[facility] HospitalIn the event this information is protected by the Federal Confidentiality of Alcohol and Drug Abuse Patient Records regulations: The Federal rules restrict any use of the information to criminally investigate or prosecute any alcohol or drug abuse patient.[facility] HospitalIn the event this information is protected by the Federal Confidentiality of Alcohol and Drug Abuse Patient Records regulations: The Federal rules restrict any use of the information to criminally investigate or prosecute any alcohol or drug abuse patient.[facility] HospitalIn the event this information is protected by the Federal Confidentiality of Alcohol and Drug Abuse Patient Records regulations: The Federal rules restrict any use of the information to criminally investigate or prosecute any alcohol or drug abuse patient.[facility] HospitalIn the event this information is protected by the Federal Confidentiality of Alcohol and Drug Abuse Patient Records regulations: The Federal rules restrict any use of the information to criminally investigate or prosecute any alcohol or drug abuse patient.[facility] HospitalIn the event this information is protected by the Federal Confidentiality of Alcohol and Drug Abuse Patient Records regulations: The Federal rules restrict any use of the information to criminally investigate or prosecute any alcohol or drug abuse patient.[facility] HospitalIn the event this information is protected by the Federal Confidentiality of Alcohol and Drug Abuse Patient Records regulations: The Federal rules restrict any use of the information to criminally investigate or prosecute any alcohol or drug abuse patient.[facility] HospitalIn the event this information is protected by the Federal Confidentiality of Alcohol and Drug Abuse Patient Records regulations: The Federal rules restrict any use of the information to criminally investigate or prosecute any alcohol or drug abuse patient.[facility] HospitalIn the event this information is protected by the Federal Confidentiality of Alcohol and Drug Abuse Patient Records regulations: The Federal rules restrict any use of the information to criminally investigate or prosecute any alcohol or drug abuse patient.[facility] HospitalIn the event this information is protected by the Federal Confidentiality of Alcohol and Drug Abuse Patient Records regulations: The Federal rules restrict any use of the information to criminally investigate or prosecute any alcohol or drug abuse patient.[facility] HospitalIn the event this information is protected by the Federal Confidentiality of Alcohol and Drug Abuse Patient Records regulations: The Federal rules restrict any use of the information to criminally investigate or prosecute any alcohol or drug abuse patient.[facility] HospitalIn the event this information is protected by the Federal Confidentiality of Alcohol and Drug Abuse Patient Records regulations: The Federal rules restrict any use of the information to criminally investigate or prosecute any alcohol or drug abuse patient.[facility] Reason for Visit (unrecogniz ed section and content) Specialty Diagnoses / Procedures Referred By Contac t Referred To Contact Urology Diagnoses History of nephrolithiasis Procedures CONSULT TO UROLOGY OFFICE/OUTPATIENT [facility] 60-[place] [address] [place] [address] Referral ID Status Reason Start Date Expiration Date V isits Requested Visits Authorized [id number] Closed PCP Requested Referral 03/25/2023 03/24/2024 1 1 Reason Comments Refill Request Reason Comments Follow Up dehydrated due to GI virus recently, then Covid positive, no new complaints Reason Comments Medication Problem Reason Comments 6 Month Exam Reason Comments Appointment Urology consult Reason Comments New Patient Specialty Diagnoses / Procedures Referred By Contac t Referred To Contact Urology Diagnoses Kidney stones Procedures CONSULT TO UROLOGY OFFICE/OUTPATIENT [facility] 60-74 MINUTES Radha Merino MD [address] [place] [address] Referral ID Status Reason Start Date Expiration Date V isits Requested Visits Authorized [id number] Closed PCP Requested Referral 03/10/2023 03/09/2024 1 1 Reason Comments Consult Reason Comments Medication Question Reason Comments Follow Up Cysto /stent removal Reason Comments Medicare Wellness Exam Reason Comments Radiology CT Specialty Diagnoses / Procedures Referred By Contac t Referred To Contact CT IMAGING Diagnoses History of nephrolithiasis Procedures CT FLANK WO IVCON CT ABD & P[place] [address] [place] [address] Ct [facility] [place] [address] Referral ID Status Reason Start Date Expiration Date V isits Requested Visits Authorized [id number] Closed Auto-Generate d Referral 03/16/2023 04/14/2024 1 1 Reason Comments Consult FACE SHEET Reason Comments Thyroid Problem Specialty Diagnoses / Procedures Referred By Contac t Referred To Contact Diagnoses Phosphate calculi Hyperparathyroid (HCC) Procedures CONSULT TO ENDOCRINE SURGERY OFFICE/OUTPATIENT [facility] 60-74 MINUTES Charlene Hein APRN.SKIING TEACHER [address] [place] [address] Referral ID Status Reason Start Date Expiration Date V isits Requested Visits Authorized [id number] Closed PCP Requested Referral 10/01/2023 09/30/2024 1 1 Reason Comments Radiology NM Specialty Diagnoses / Procedures Referred By Ashanti t Referred To Contact MOLECULAR & FUNCTIONAL IMAGING Diagnoses Hyperparathyroidism (HCC) Procedures NM PARATHYROID W SPECT/CT PARATHYROID IMAGING W/TOMOGRAPHIC SPECT & CT Eleonora Hillman MD [address] [place] [address] Molecular & Functional Imaging [address] [place] [address] Referral ID Status Reason Start Date Expiration Date V isits Requested Visits Authorized [id number] Closed Auto-Generate d Referral 10/11/2023 11/09/2024 1 1 Reason Comments Post Op Reason Comments Post-Op Visit Care Teams (unrecognized sec tion and content) Forensic Science Examiner Relationship Specialty Start Date End Date Radha Merino MD [address] [place] [address] PCP - General Family Practice 06/24/22 Forensic Science Examiner Relationship Specialty Start Date End Date Radha Merino MD [address] [place] [address] PCP - General Family Practice 06/24/22 Forensic Science Examiner Relationship Specialty Start Date End Date Radha Merino MD [address] [place] [address] PCP - General Family Medicine 06/24/22 Forensic Science Examiner Relationship Specialty Start Date End Date Radha Merino MD [address] [place] [address] PCP - General Family Medicine 06/24/22 Forensic Science Examiner Relationship Specialty Start Date End Date Radha Merino MD [address] [place] [address] PCP - General Family Medicine 06/24/22 Forensic Science Examiner Relationship Specialty Start Date End Date Radha Merino MD [address] [place] [address] PCP - General Family Medicine 06/24/22 Forensic Science Examiner Relationship Specialty Start Date End Date Radha Merino MD [address] [place] [address] PCP - General Family Medicine 06/24/22 Forensic Science Examiner Relationship Specialty Start Date End Date Radha Merino MD [address] [place] [address] PCP - General Family Medicine 06/24/22 Forensic Science Examiner Relationship Specialty Start Date End Date Radha Merino MD [address] [place] [address] PCP - General Family Medicine 06/24/22 Forensic Science Examiner Relationship Specialty Start Date End Date Radha Merino MD [address] [place] [address] PCP - General Family Medicine 06/24/22 Forensic Science Examiner Relationship Specialty Start Date End Date Radha Merino MD [address] [place] [address] PCP - General Family Medicine 06/24/22 Forensic Science Examiner Relationship Specialty Start Date End Date Radha Merino MD [address] [place] [address] PCP - General Family Medicine 06/24/22 Forensic Science Examiner Relationship Specialty Start Date End Date Radha Merino MD [address] [place] [address] PCP - General Family Medicine 06/24/22 Forensic Science Examiner Relationship Specialty Start Date End Date Radha Merino MD [address] [place] [address] PCP - General Family Medicine 06/24/22 Forensic Science Examiner Relationship Specialty Start Date End Date Radha Merino MD [address] [place] [address] PCP - General Family Medicine 06/24/22 Forensic Science Examiner Relationship Specialty Start Date End Date Radha Merino MD [address] [place] [address] PCP - General Family Medicine 06/24/22 Forensic Science Examiner Relationship Specialty Start Date End Date Radha Merino MD [address] [place], [place] [id number] PCP - General Family Medicine 06/24/22 Rubber Stamps And Dies Supervisor, [address], [address] [place] [address] Dermatology 06/08/23 Portillo Buck DO [address] [facility] [address] [place], [place] [address] Gastroenterology 06/08/23 Yumiko Hernandez MD [address] [place] [address] Urology 06/08/23 Patrick Zuniga [address] [facility] [address] [place] [address] Cardiology 06/08/23 Forensic Science Examiner Relationship Specialty Start Date End Date Radha Merino MD [address] [place] [address] PCP - General Family Medicine 06/24/22 Forensic Science Examiner Relationship Specialty Start Date End Date Radha Merino MD [address] [place] [address] PCP - General Family Medicine 06/24/22 Rubber Stamps And Dies Supervisor, [facility] [address] [facility], [address] [place] [address] Dermatology 06/08/23 Portillo Buck DO [address] [place], [place] [address] Gastroenterology 06/08/23 Yumiko Hernandze MD [address] [place] [address] Urology 06/08/23 Patrick Zuniga MD [address] [place] [address] Cardiology 06/08/23 Forensic Science Examiner Relationship Specialty Start Date End Date Radha Merino MD [address] [place] [address] PCP - General Family Medicine 06/24/22 Rubber Stamps And Dies Supervisor, [facility] [address] [facility], [address] [place] [address] Dermatology 06/08/23 Portillo Buck DO [address] [place] [address] Gastroenterology 06/08/23 Yumiko Hernandez MD [address] [place] [address] Urology 06/08/23 Patrick Zuniga MD [address] [place] [address] Cardiology 06/08/23 Forensic Science Examiner Relationship Specialty Start Date End Date Radha Merino MD [address] [place], [place] [id number] PCP - General Family Medicine 06/24/22 Rubber Stamps And Dies Supervisor, [address], [address] [place], [place] [address] Dermatology 06/08/23 Portillo Buck DO [address] [place] [address] Gastroenterology 06/08/23 Yumiko Hernandez MD [address] [place] [address] Urology 06/08/23 Patrick Zuniga MD [address] [place] [address] Cardiology 06/08/23 Forensic Science Examiner Relationship Specialty Start Date End Date Radha Merino MD [address] [place], [place] [address] PCP - General Family Medicine 06/24/22 Rubber Stamps And Dies Supervisor, [address], [address] [place], [place] [address] Dermatology 06/08/23 Portillo Buck DO [address] [place], [place] [id number] Gastroenterology 06/08/23 Yumiko Hernandez MD [address] [place], [place] [id number] Urology 06/08/23 Patrick Zuniga MD [address] [place], [place] [address] Cardiology 06/08/23 Forensic Science Examiner Relationship Specialty Start Date End Date Radha Merino MD [address] [place], [place] [address] PCP - General Family Medicine 06/24/22 Rubber Stamps And Dies Supervisor, [address], [address] [place], [place] [address] Dermatology 06/08/23 Portillo Buck DO [address], [place] [id number] Gastroenterology 06/08/23 Yumiko Hernandez MD [address] [place] [address] Urology 06/08/23 Patrick Zuniga MD [address] [place] [address] Cardiology 06/08/23 Forensic Science Examiner Relationship Specialty Start Date End Date Radha Merino MD [address] [place], [place] [address] PCP - General Family Medicine 06/24/22 Rubber Stamps And Dies Supervisor, [address], [address] [place] [address] Dermatology 06/08/23 Portillo Buck DO [address] [place] [address] Gastroenterology 06/08/23 Yumiko Hernandez MD [address] [place], [place] [id number] Urology 06/08/23 Patrick Zuniga MD [address] [place] [address] Cardiology 06/08/23 Forensic Science Examiner Relationship Specialty Start Date End Date Radha Merino MD [address] [place], [place] [address] PCP - General Family Medicine 06/24/22 Rubber Stamps And Dies Supervisor, [address], [address] [place] [address] Dermatology 06/08/23 Portillo Buck DO [address] [place], [place] [id number] Gastroenterology 06/08/23 Yumiko Hernandez MD [address] [place], [place] [address] Urology 06/08/23 Patrick Zuniga MD [address] [place] [address] Cardiology 06/08/23 (unrecognized sect ion and content) No Status Records FoundNo Status Records FoundNo Status Records Found INFORMATION SOURCE (unrecogn ized section and content) DATE CREATED AUTHOR AUTHOR'S ORGANIZ ATION 01/02/2024 [facility] DATE CREATED AUTHOR AUTHOR'S ORGANIZ ATION [facility]ORDS PERTAINING TO PATIENTS WHO ARE OR HAVE BEEN ENROLLED IN A CHEMICAL DEPENDENCY/SUBSTANCEABUSE PROGRAM, SOME INFORMATION MAY BE OMITTED. This clinical summary was aggregated from multiple sources. Caution should be exercised in using it in the provision of clinical care. This summary normalizes information from multiple sources, and as a consequence, information in this document may materially change the coding, format and clinical context of patient data. In addition, data may be omitted in some cases. CLINICAL DECISIONS SHOULD BE BASED ON THE PRIMARY CLINICAL RECORDS. [facility] [employer] provides no warranty or guarantee of the accuracy or completeness of information in this document.
== END | disposition home or self-care (01) ==
LOC: US 09:59
PROVIDERS: PCP Family Medicine; Referring Provider Internal Medicine; Visit Provider Internal Medicine
DX: K76.0 Fatty (change of) liver, not elsewhere classified (principal); E66.9 Obesity, unspecified
CPT/HCPCS: 76705; 76981

== ENCOUNTER 2024-02-08 10:03 | Inpatient (IN) | payer MEDICARE, OTHER, SELFPAY ==
[2024-02-08] VITALS (16 sets, daily range): BP systolic 79–175; BP diastolic 47–89; PULSE 71–100; RESP 11–18; TEMP 36.4–36.8; O2SAT 93–100; BMI 31.4
--- NOTE | 2024-02-08 10:18 | EKG12_ITS ---
Test Reason : WEAKNESS Blood Pressure : / mmHG Vent. Rate : 070 BPM Atrial Rate : 070 BPM P-R Int : 168 ms QRS Dur : 084 ms QT Int : 388 ms P-R-T Axes : 032 -37 020 degrees QTc Int : 419 ms Normal sinus rhythm Left axis deviation Abnormal ECG Confirmed by Laureano Ritchie ([id number]), mapping editor MIRZA LANCASTER ([id number]) on 02/10/2024 10:54:16 AM Referred By: Confirmed By:Laureano Ritchie
--- NOTE | 2024-02-08 10:18 | CT_ITS ---
STUDY: CT ABDOMEN AND PELVIS WITH CONTRAST REASON FOR EXAM: Male, 83 years old. Rectal bleeding, diarrhea RADIATION DOSAGE (If Supplied By Facility): CTDIvol = ( 14.42 ) mGy, DLP = ( 1197.91 ) mGycm TECHNIQUE: Transaxial images were obtained from the dome of the diaphragm to the symphysis pubis without oral contrast. IV 100mL Isovue-300 was administered. Sagittal and coronal images were reconstructed. Individualized dose optimization techniques were used for this CT. COMPARISON: Comparison is made with prior study dated February 16, 2023. FINDINGS: The visualized lung bases are unremarkable. Coronary artery calcification. There is decreased attenuation of the liver consistent with steatosis. Normal gallbladder and extrahepatic biliary system. Normal spleen. Normal pancreas. There is a small, circumscribed, smooth, low attenuation left adrenal mass, consistent with an adrenal adenoma. This measures 1.8 cm. Normal right adrenal gland. 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 Stable 9 mm pancreas in the right renal pelvis. Normal visualized stomach. Normal small intestine. There are multiple colonic diverticula consistent with diverticulosis. The appendix is visualized and appears normal. Normal abdominal aorta. Normal inferior vena cava. Normal retroperitoneum. Normal urinary bladder. There is enlargement of the prostate gland. This causes indentation of the bladder base. Irregular calcifications are seen within it. Normal abdominal wall. There are diffuse degenerative changes of the visualized lumbar spine. Minimal anterior listhesis of L5 on S1 and L4 on L5. CT/Abdomen/Pelvis W IV Cont ONLY IMPRESSION: Stable 9 mm calculus in the right renal pelvis. Heterogeneous enlargement of the prostate with calcification. Small left adrenal adenoma. Fatty infiltration of the liver. Sigmoid diverticulosis. Electronically Signed: Yomi Bosch MD at 11:40 EDT ,
--- NOTE | 2024-02-08 10:19 | EDS_ITS ---
HPI History of Present Illness Chief Complaint: Weakness Detail of Chief Complaint: Generalized weakness and near syncope Informant: patient Narrative Narrative: Patient presents the emergency department complaint generalized weakness and n ear syncope. Patient states that he was sitting having coffee and when he tried to stand he felt very lightheaded and felt like he was going to pass out. He sat back down. Patient also states that he has been ill for about a week with diarrhea. Today he noticed some blood on the toilet paper when he wiped. Patient states he is not putting out much stool when he is having stools it is some water and just small amount of loose stool. He denies fevers or chills or sweats. Denies vomiting. Denies chest pain. He has had some mild increasing shortness of breath over the last several months. [facility] Medical History Diastasis recti Essential hypertension Hyperlipidemia Low back pain without sciatica Obesity Spinal stenosis at L4-L5 level Home Medications cyanocobalamin (vitamin B-12) 1,000 mcg tablet (Vitamin B-12) 1,000 mcg PO QDAY 06/08/18 [History Last Taken Unknown] multivitamin 1 tab PO QDAY 06/08/18 [History Last Taken Unknown] omeprazole 20 mg capsule,delayed release 20 mg PO QDAY 06/08/18 [History Last Taken Unknown] simvastatin 40 mg tablet 40 mg PO QPM 06/08/18 [History Last Taken Unknown] valsartan 320 mg-hydrochlorothiazide 25 mg tablet (Diovan HCT) 1 tab PO QDAY 06/08/18 [History Last Taken Unknown] allopurinol 100 mg tablet 200 mg PO QDAY 06/13/18 [History Last Taken Unknown] aspirin 81 mg tablet,delayed release (Adult Aspirin Regimen) 81 mg PO DAILY 03/09/19 [History Last Taken Unknown] omega-3 acid ethyl esters 1 gram capsule (Lovaza) 2 cap PO BID 09/11/19 [History Last Taken Unknown] vit C 250 mg-vit E 90 mg-zinc 40 mg-copper 1 [id number] capsule (PreserVision AREDS-2) 2 tab PO DAILY 09/23/20 [History Last Taken Unknown] sildenafil (pulm.hypertension) 20 mg tablet 20 mg PO Q24H PRN sexual activity 09/29/21 [History Last Taken Unknown] ursodiol 300 mg capsule 300 mg PO BID #60 caps 03/25/23 [Rx Last Taken Unknown] Bilateral wrist splints #2 ea 09/23/23 [Rx Last Taken Unknown] amitriptyline 25 mg tablet 25 mg PO QHS #90 tabs 09/23/23 [Rx Last Taken Unknown] diclofenac sodium 75 mg tablet,delayed release 75 mg PO BID PRN pain #180 tabs 09/23/23 [Rx Last Taken Unknown] Allergy/AdvReac Type Severity Reaction Status Date / Time No Known Allergies Allergy Verified 02/08/24 10:05 Family History Father Dementia Mother Atrial fibrillation Surgical History History of cystoscopy (02/2008) History of tonsillectomy and adenoidectomy Social History Smoking Status: Never smoker second hand exposure: No alcohol intake: current alcohol intake frequency: a few times a week Alcohol type: wine substance use type: does not use caffeine: Yes Type: coffee Number of servings: 3 what type of physical activity do you participate in: none maria fernanda/yarsanism: Restoration seatbelt use: always ROS ROS ED Review of Systems ROS Unobtainable: other Constitutional Constitutional ED: Reports lethargy; Denies chills, fever(s), sweats or weight loss Eyes Eyes: Denies blurry vision, change in vision or diplopia ENT ENT ED: Denies rhinorrhea or sore throat Cardiovascular Cardiovascular: Denies chest pain, orthopnea or racing heartbeat Respiratory/Chest Respiratory/Chest: Denies cough, dyspnea, dyspnea on exertion, orthopnea or sputum Gastrointestinal Gastrointestinal: Reports diarrhea and other Details: Bright red blood in stool ; Denies abdominal pain, nausea or vomiting Genitourinary Genitourinary ED: Denies dysuria, hematuria or urinary frequency Musculoskeletal Musculoskeletal: Denies arthralgias, back pain, myalgias or neck pain Integumentary Denies abscess, Abrasions or rash Neurologic Neurologic: Denies headache(s) or weakness Psychiatric Psychiatric: Denies anxiety, depression or suicidal thoughts Endocrine Endocrinology: Denies polydipsia, polyphagia or polyuria Hematologic/Lymphatic Hematologic/Lymphatic: Denies easy bleeding, easy bruising or lymphadenopathy Allergic/Immunologic Allergic/Immunologic ED: Denies mouth swelling, tongue swelling or urticaria EXAM Physical Exam Const Vital Signs: 02/08/24 10:04 02/08/24 10:10 02/08/24 10:32 Temperature 97.6 F L Temperature Source Oral Pulse Rate 85 Pulse Rate [Lying] 71 Pulse Rate [Sitting (for 1 minute prior to obtaining)] 81 Pulse Rate [Standing (for 1 minute prior to obtaining)] 86 Respiratory Rate 11 L Respiratory Effort Normal Non-Labored Respiratory Pattern Normal Blood Pressure 175/65 H Blood Pressure [Lying] 132/72 H Blood Pressure [Sitting (for 1 minute prior to obtaining)] 116/70 Blood Pressure [Standing (for 1 minute prior to obtaining)] 90/56 L Blood Pressure Mean 101 Blood Pressure Mean [Lying] 92 Blood Pressure Mean [Sitting (for 1 minute prior to obtaining)] 85 Blood Pressure Mean [Standing (for 1 minute prior to obtaining)] 67 Pulse Ox 94 Oxygen Delivery Method Room Air Positive well nourished and well developed General Appearance ED: well developed and NAD HEENT Reports TM's clear and moist mucous membranes normocephalic and atraumatic; Negative for trauma or tenderness Tympanic Membrane ED: Yes TM's clear Eyes PERRL and EOMs intact bilaterally General Eye ED: Negative for pale conjunctiva or scleral icterus Neck no lymphadenopathy, supple and no JVD General: Negative for tenderness Chest Wall inspection of chest normal and palpation of chest normal Chest: Negative for tenderness Resp normal respiratory effort and clear to auscultation bilaterally Effort and Inspection: Negative for respiratory distress or pain with movement Auscultation: Negative for rhonchi, wheezes or diminished lung sounds Cardio regular rate, regular rhythm, S1 normal heart sound, S2 normal heart sound and no murmurs Peripheral Pulses: pulses 2+ throughout GI normal to inspection, nondistended, normoactive bowel sounds, soft to palpation, non-tender, non-distended and no masses GI Narrative: Rectal exam-no fissures or tears noted. No hemorrhoids. On digital rectal exam there were no masses in the rectal vault and stool was blood-tinged. Back/Spine no CVA tenderness and no thoracic nor lumbar tenderness Extremity normal to inspection General Extremety ED: Negative for edema General Extremity: Negative for edema Neuro oriented x3, CN's II-XII intact bilaterally, no sensory deficits noted and gait normal Sensorium / Orientation: awake, alert, oriented to person, oriented to place and oriented to time Motor Exam: strength 5/5 throughout and strength abnormal Psych mental status grossly normal Skin no rashes or lesions noted and no wounds MDM MDM MDM Narrative Medical decision making narrative: Patient presents with diarrhea and now rectal bleeding. Patient complaining feeling lightheaded and dizzy with standing. IV line will be established. Patient placed on monitor tech. EKG obtained on arrival shows sinus rhythm with ventricular rate of 70 bpm with no acute ST segment changes. CBC with differential showed a white count of 7.1 with hemoglobin of 8.1. Last available hemoglobin was 13 approximately 11 months ago. Stool for Hemoccult was sent and was positive. BUN elevated 25 and creatinine 1.23. Chemistries otherwise unremarkable. Lactate was slightly elevated 2.3. Orthostatic vital signs were obtained and were positive. Patient was ordered a liter normal saline fluid bolus. CT scan of abdomen pelvis with IV contrast ordered and pending. CT scan of the abdomen pelvis with IV contrast was obtained and really did not show any significant acute process. Patient had sigmoid diverticulosis and small left adrenal adenoma. Patient had an enlarged prostate. Lab Data Attestation: I reviewed the patient's lab results. Labs: Laboratory Results - last 24 hr 02/08/24 10:20 WBC 7.1 RBC 2.34 L Hgb 8.1 L Hct 25.1 L MCV 107.3 H MCH 34.6 H MCHC 32.3 RDW Std Deviation 53.9 H RDW Coeff of [place]in 14.2 Plt Count 259 MPV 10.5 Immature Gran % (Auto) 0.600 Neut % (Auto) 64.2 Lymph % (Auto) 21.2 [place] % (Auto) 8.4 Eos % (Auto) 4.5 Baso % (Auto) 1.1 H Absolute Neuts (auto) 4.6 Absolute Lymphs (auto) 1.51 Nucleated RBC % 0 Sodium 136 Potassium 4.1 Chloride 105 Carbon Dioxide 24.0 Anion Gap 7 BUN 25 H Creatinine 1.23 Estim Creat Clear Calc 54.03 Est GFR (MDRD) Af Amer 73 Est GFR (MDRD) Non-Af 60 BUN/Creatinine Ratio 20.3 H Glucose 193 H Lactic Acid 2.3 H* Calcium 8.5 Total Bilirubin 0.50 AST 18 ALT 19 Alkaline Phosphatase 100 Troponin I High Sens 3 Total Protein 6.7 Albumin 3.4 Globulin 3.3 Albumin/Globulin Ratio 1.0 Radiography Diagnostic Testing: Clinical Impression(s) from Imaging Studies Abdomen/Pelvis CT 02/08/24 10:18 IMPRESSION: Stable 9 mm calculus in the right renal pelvis. Heterogeneous enlargement of the prostate with calcification. Small left adrenal adenoma. Fatty infiltration of the liver. Sigmoid diverticulosis. Electronically Signed: Yomi Bosch MD at 11:40 EDT , EKG Initial EKG: Attestation: I personally reviewed and interpreted this EKG as follows: Comments: Sinus rhythm with rate of 70 bpm with no acute ST segment changes Discharge Plan Triage Chief Complaint: Weakness Other Complaint: Syncope ED Provider: Shayne Elder Dx/Rx/DC Orders Clinical Impression: Orthostatic hypotension, Anemia, Acute lower GI bleeding Prescriptions: No Action cyanocobalamin (vitamin B-12) [Vitamin B-12] 1,000 mcg tablet 1,000 mcg PO QDAY valsartan-hydrochlorothiazide [Diovan HCT] 320-25 mg tablet 1 tab PO QDAY multivitamin tablet 1 tab PO QDAY simvastatin 40 mg tablet 40 mg PO QPM omeprazole 20 mg capsule,delayed release(DR/EC) 20 mg PO QDAY allopurinol 100 mg tablet 200 mg PO QDAY aspirin [Adult Aspirin Regimen] 81 mg tablet,delayed release (DR/EC) 81 mg PO DAILY omega-3 acid ethyl esters [Lovaza] 1 gram capsule 2 cap PO BID PreserVision AREDS-2 [id number] mm-[id number]-tt-mg capsule 2 tab PO DAILY Rx Instructions: administer with meals sildenafil (pulm.hypertension) 20 mg tablet 20 mg PO Q24H PRN (Reason: sexual activity) Patient Comments: TAKE 1-3 TABLETS DAILY ONE HOUR PRIOR TO INTERCOURSE amitriptyline 25 mg tablet 25 mg PO QHS Qty: 90 2RF diclofenac sodium 75 mg tablet,delayed release (DR/EC) 75 mg PO BID PRN (Reason: pain) Qty: 180 2RF (DME) Bilateral wrist splints See Rx Instructions .ROUTE .MEDSUPPLY Qty: 2 0RF Rx Instructions: Right and left wrist splints to be worn at night ursodiol 300 mg capsule 300 mg PO BID Qty: 60 11RF Primary Care Provider: Anderson Izaguirre Referrals: Anderson Izaguirre MD [Primary Care Provider] - Disposition Disposition: Acute Care Hospital [facility]
[2024-02-08] MEDS: 0.9% Normal Saline (1000mL) 1,000 ML 150 ML IV ×4 (10:27→22:08)
[2024-02-08 10:57] LABS: AST(SGOT) 18 U/L (15-37); Alanine Aminotransfer ALT/SGPT 19 U/L (16-61); Albumin, Serum 3.4 g/dL (3.2-5.0); Alkaline Phosphatase 100 U/L (45-117); Anion Gap 7 (5-15); BUN 25 mg/dL (7-18); BUN/Creat Ratio 20.3 RATIO (10-20); Calcium,Total 8.5 mg/dL (8.5-10.1); Chloride 105 mmol/L (98-107); Creatinine, Serum 1.23 mg/dL (0.70-1.30); EST Glomerular Filtration Rate 60 mL/min (>60); Est Glom Filt Rate - Afr Amer 73 mL/min (>60); Estimated Creatinine Clearance 54.03 ml/min; Globulin 3.3 g/dL (2.2-4.2); Glucose 193 mg/dL (74-106); Potassium 4.1 mmol/L (3.5-5.1); Protein, Total 6.7 g/dL (6.4-8.2); Sodium Level 136 mmol/L (136-145); Troponin-I HS 3 pg/mL (3.0-78.0)
[2024-02-08 11:02] LABS: Absolute Lymphocyte Count 1.51 X10^3/uL (0.83-4.51); Absolute Neutrophil Count 4.6 X10^3/uL (2.0-7.7); Basophil# 0.08 X10^3/uL; Basophil% 1.1 % (0-1); Eosinophil# 0.32 X10^3/uL; Eosinophils% 4.5 % (0-5); Hematocrit 25.1 % (40-54); Hemoglobin 8.1 g/dL (13.0-16.5); Lymphocyte # 1.51 X10^3/ul (0.83-4.51); Lymphocyte % 21.2 % (19-41); Mean Corp Hgb Conc 32.3 g/dL (32-36); Mean Corpuscular Hgb 34.6 pg (27.0-32.0); Mean Corpuscular Volume 107.3 fL (80-94); Mean Platelet Vol. 10.5 fl (6.2-12.0); Monocyte% 8.4 % (0-10); NRBC Flagged by Analyzer 0 % (0-5); Neutrophil # 4.56 X10^3/uL (2.7-7.7); Neutrophil % 64.2 % (47-70); Platelet Count 259 K/mm3 (150-450); RBC Distribution Width CV 14.2 % (11.6-14.6); RBC Distribution Width SD 53.9 fl (35.1-43.9); Red Blood Count 2.34 M/mm3 (4.6-6.2); White Blood Count 7.1 K/mm3 (4.4-11.0)
[2024-02-08 11:11] LABS: Lactic Acid 2.3 mmol/L (0.4-1.9)
--- NOTE | 2024-02-08 12:11 | HP.PCM_ITS ---
HPI - General General Date of Admission: 02/08/24 Date of Service: 02/08/24 Chief Complaint: dizziness, lightheadedness HPI Narrative RENEE ALVARADO, is a 83 M who presents via the ED on 02/08/2024 with a complaint of lightheaded and dizzy. He was having some coffee and says he tried to stand up and felt dizzy and lightheadedness. He has had diarrhea for about a week and noticed blood when he wiped himself today. His diarrhea has started improving. He denied any abdominal pain, chest pain, nausea or vomiting or any other symptoms. Review of systems is otherwise negative. Patient admits to a 5 to 7 pound weight loss over the last month but says this has been intentional as he was recently diagnosed with fatty liver disease and so is trying to lose weight. He has been on the [employer] diet for this. He does have a history of dive rticulosis. Vitals in the ED were BP of 114/89, IA of 93, RR of 16 and oxygen sats of 98% on room air. CBC showed WBC of 7.1 with Hb of 8.1, wbc of 7.1 and platelets of 259. Chemistry showed lactic acid of 2.3 and creatinine of 1.23 as well as sodium of 136. CT of the abdomen and pelvis showed a stable 9 mm calculus in the right renal pelvis with heterogeneous enlargement of the prostate with calcification and small left adrenal adenoma with fatty infiltration of the liver and sigmoid diverticulosis. Stool for occult blood done was positive though rectal exam also showed that there was layne blood. Orthostatics checked were positive. He has been admitted to be managed for dizziness due to positive orthostatic hypotension in the setting of rectal bleeding. [facility] Medical History Diastasis recti Essential hypertension Hyperlipidemia Low back pain without sciatica Obesity Spinal stenosis at L4-L5 level Home Medications cyanocobalamin (vitamin B-12) 1,000 mcg tablet (Vitamin B-12) 1,000 mcg PO QDAY 06/08/18 [History Last Taken 02/07/24] multivitamin 1 tab PO QDAY 06/08/18 [History Last Taken 02/07/24] omeprazole 20 mg capsule,delayed release 20 mg PO QDAY 06/08/18 [History Last Taken 02/07/24] simvastatin 40 mg tablet 40 mg PO QPM 06/08/18 [History Last Taken 02/07/24] valsartan 320 mg-hydrochlorothiazide 25 mg tablet (Diovan HCT) 1 tab PO QDAY 06/08/18 [History Last Taken 02/07/24] allopurinol 100 mg tablet 100 mg PO BID 06/13/18 [History Last Taken 02/07/24] aspirin 81 mg tablet,delayed release (Adult Aspirin Regimen) 81 mg PO DAILY 03/09/19 [History Last Taken 02/07/24] omega-3 acid ethyl esters 1 gram capsule (Lovaza) 1 cap PO BID 09/11/19 [History Last Taken 02/07/24] vit C 250 mg-vit E 90 mg-zinc 40 mg-copper 1 [id number] capsule (PreserVision AREDS-2) 2 tab PO DAILY 09/23/20 [History Last Taken 02/07/24] sildenafil (pulm.hypertension) 20 mg tablet 20 mg PO Q24H PRN sexual activity 09/29/21 [History Last Taken Unknown] ursodiol 300 mg capsule 300 mg PO BID #60 caps 03/25/23 [Rx Last Taken 02/07/24] diclofenac sodium 75 mg tablet,delayed release 75 mg PO BID PRN pain #180 tabs 09/23/23 [Rx Last Taken Unknown] amitriptyline 25 mg tablet 25 mg PO QHS PRN sleep 02/08/24 [History Last Taken 02/07/24] potassium citrate 10 mEq (1,080 mg) tablet,extended release 10 meq PO TID 02/08/24 [History Last Taken 02/07/24] Allergy/AdvReac Type Severity Reaction Status Date / Time No Known Allergies Allergy Verified 02/08/24 10:05 Family History Father Dementia Mother Atrial fibrillation Surgical History History of cystoscopy (02/2008) History of tonsillectomy and adenoidectomy Social History Smoking Status: Never smoker second hand exposure: No alcohol intake: current alcohol intake frequency: a few times a week Alcohol type: wine substance use type: does not use caffeine: Yes Type: coffee Number of servings: 3 what type of physical activity do you participate in: none maria fernanda/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: Mosque seatbelt use: always ROS Review of Systems ROS Unobtainable: Denies due to encephalopathy Constitutional Constitutional: Reports fatigue, malaise and weakness; Denies anorexia, chills or fever(s) Eyes Eyes: Denies change in vision ENT HEENT: Denies dysphagia Cardiovascular Cardiovascular: Reports chest pain, claudication, palpitations, paroxysmal nocturnal dyspnea and syncope Respiratory/Chest Respiratory/Chest: Reports cough, shortness of breath at rest and shortness of breath with exertion Vital Signs Vital Signs Vital Signs: 02/08/24 10:04 02/08/24 10:10 02/08/24 10:32 Temperature 97.6 F L Temperature Source Oral Pulse Rate 85 Pulse Rate [Lying] 71 Pulse Rate [Sitting (for 1 minute prior to obtaining)] 81 Pulse Rate [Standing (for 1 minute prior to obtaining)] 86 Respiratory Rate 11 L Respiratory Effort Normal Non-Labored Respiratory Pattern Normal Blood Pressure 175/65 H Blood Pressure [Lying] 132/72 H Blood Pressure [Sitting (for 1 minute prior to obtaining)] 116/70 Blood Pressure [Standing (for 1 minute prior to obtaining)] 90/56 L Blood Pressure Mean 101 Blood Pressure Mean [Lying] 92 Blood Pressure Mean [Sitting (for 1 minute prior to obtaining)] 85 Blood Pressure Mean [Standing (for 1 minute prior to obtaining)] 67 Pulse Ox 94 Oxygen Delivery Method Room Air 02/08/24 12:04 Temperature Temperature Source Pulse Rate 93 Pulse Rate [Lying] Pulse Rate [Sitting (for 1 minute prior to obtaining)] Pulse Rate [Standing (for 1 minute prior to obtaining)] Respiratory Rate 16 Respiratory Effort Respiratory Pattern Blood Pressure 114/89 H Blood Pressure [Lying] Blood Pressure [Sitting (for 1 minute prior to obtaining)] Blood Pressure [Standing (for 1 minute prior to obtaining)] Blood Pressure Mean 97 Blood Pressure Mean [Lying] Blood Pressure Mean [Sitting (for 1 minute prior to obtaining)] Blood Pressure Mean [Standing (for 1 minute prior to obtaining)] Pulse Ox 98 Oxygen Delivery Method Room Air Weight Weight: 213 lb 2.992 oz Body Mass Index (BMI) 31.4 Physical Exam Const alert, oriented x3 and no apparent distress General Appearance: cooperative HEENT normocephalic, head/scalp atraumatic and oropharynx normal Mouth: dry mucous membranes Eyes PERRL and EOMs intact bilaterally Neck no lymphadenopathy and supple Lymph Lymphatic: no lymphadenopathy noted and no lymphedema noted Resp normal respiratory effort, normal air movement and clear to auscultation bilaterally Cardio regular rate, regular rhythm, S1 normal heart sound, S2 normal heart sound and no murmurs GI normal to inspection, nondistended, normoactive bowel sounds, soft to palpation and non-tender Extremity normal capillary refill, no clubbing, cyanosis or edema and no calf tenderness General Extremity: no tenderness to palpation of joints or extremities Skin General Skin Exam: no breakdown Neuro CN's II-XII intact bilaterally, no focal motor deficits, no sensory deficits noted and deep tendon reflexes 2+ bilaterally Motor Exam: strength 5/5 throughout and general weakness Psych thought process normal and cooperative Appearance: appropriate Results Lab / Micro Data 02/08/24 14:45 02/08/24 10:20 Labs: Laboratory Results - last 24 hr 02/08/24 10:20: WBC 7.1, RBC 2.34 L, Hgb 8.1 L, Hct 25.1 L, MCV 107.3 H, MCH 34.6 H, MCHC 32.3, RDW Std Deviation 53.9 H, RDW Coeff of Lorin 14.2, Plt Count 259, MPV 10.5, Immature Gran % (Auto) 0.600, Neut % (Auto) 64.2, Lymph % (Auto) 21.2, [place] % (Auto) 8.4, Eos % (Auto) 4.5, Baso % (Auto) 1.1 H, Absolute Neuts (auto) 4.6, Absolute Lymphs (auto) 1.51, Nucleated RBC % 0, Sodium 136, Potassium 4.1, Chloride 105, Carbon Dioxide 24.0, Anion Gap 7, BUN 25 H, Creatinine 1.23, Estim Creat Clear Calc 54.03, Est GFR (MDRD) Af Amer 73, Est GFR (MDRD) Non-Af 60, BUN/Creatinine Ratio 20.3 H, Glucose 193 H, Lactic Acid 2.3 H*, Calcium 8.5, Total Bilirubin 0.50, AST 18, ALT 19, Alkaline Phosphatase 100, Troponin I High Sens 3, Total Protein 6.7, Albumin 3.4, Globulin 3.3, Albumin/Globulin Ratio 1.0 Micro: Microbiology 02/08/24 10:20 Stool Stool Occult Blood (JAYE) - Final Occult Blood Positive Imaging Radiology Impression Abdomen/Pelvis CT 02/08/24 10:18 IMPRESSION: Stable 9 mm calculus in the right renal pelvis. Heterogeneous enlargement of the prostate with calcification. Small left adrenal adenoma. Fatty infiltration of the liver. Sigmoid diverticulosis. Electronically Signed: Yomi Bosch MD at 11:40 EDT , Assessment & Plan Assessment/Plan (1) Acute lower GI bleeding: (2) Orthostatic hypotension: (3) Anemia: PLAN: Plan #Acute anemia due to lower GI bleed * Admit to [facility]; patient was initially admited to [facility] was transferred to PCU after he had an active bleed and Hb dropped to 6.6. Hemoglobin was 8.1 on admission * Hemoglobin last year was around 13. Of note: Patient got to the floor he had a large rectal bleed hemoglobin dropped to 6.6. * Hydrate patient aggressively with IV fluids at 150cc/hr. Orthostatics were positive. * Type and cross done. Will transfuse patient with 2 units of packed red blood cells. * Keep patient NPO. Gastroenterology consulted. * Lower GI bleed mediated to diverticular bleed in light of patient having history of diverticulosis. CT of the abdomen and pelvis showed evidence of sigmoid diverticulosis * #Orthostatic hypotension: Likely due to GI bleed. Being hydrated with IV fluids. 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 On gabapentin. #Hyperlipidemia: On statin. Hold all p.o. meds. Hypertension: On valsartan hydrochlorothiazide. Will hold in light of lower GI bleed. IV hydralazine as needed #Nonalcoholic steatohepatitis: On ursodiol DVT prophylaxis: SCDs. CODE STATUS: Full code * Patient counseled extensively about different types of CODE STATUS including full code, DNR CCA and DNR CCA. Patient elects to be full code. * Total [id number] time 17 minutes. Charges/Coding Visit Charges Inpatient E&M: 07347 Init Hosp L3 Procedures Hospitalists Procedures: 47924 Advncd Care Plan 30 Min
--- NOTE | 2024-02-08 12:17 | NURSING ---
MED SURG KORAM LOWER GI BLEED, DIARRHEA, ANEMIA, ORTHOSTATIC HYPOTENSION
[2024-02-08 13:27] LABS: Ferritin 48 ng/mL (26-388); Iron 52 ug/dL (65-175); Iron Binding Capacity,Total 320 ug/dL (250-450); PERCENT IRON SATURATION 16.2 % (15.0-55.0)
[2024-02-08 14:34] LABS: Reflex Lactate? Y
[2024-02-08] MEDS: Pantoprazole Sodium 40 MG in 0.9% Normal Saline (100mL MB+) 100 ML 330 MG IV ×2 (14:59→22:08)
[2024-02-08 15:04] LABS: Hematocrit 20.6 % (40-54); Hemoglobin 6.6 g/dL (13.0-16.5)
[2024-02-08 15:34] LABS: Lactic Acid 3.3 mmol/L (0.4-1.9)
[2024-02-08 15:38] LABS: International Normalized Ratio 1.1; Prothrombin Time (Protime)PT. 14.4 SECONDS (11.7-14.9)
--- NOTE | 2024-02-08 19:08 | EX.PCM.CON.G ---
HPI Consult Data Date of Consult: 02/08/24 HPI Narrative Reason for Consultation: GI bleed HPI Narrative: RENEE ALVARADO, is a 83 M who presents to the emergency department complaint generalized weakness and near syncope. Patient states that he was sitting having coffee and when he tried to stand he felt very lightheaded and felt like he was going to pass out. He sat back down. Patient also states that he has been ill for about a week with diarrhea. Today he noticed some blood on the toilet paper when he wiped. Patient states he is not putting out much stool when he is having stools it is some water and just small amount of loose stool. He denies fevers or chills or sweats. Denies vomiting. Denies chest pain. He has had some mild increasing shortness of breath over the last several months. 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 He also has a history of chronic anemia, gout, neuropathy and hypertension. He was sent to the PCU due to hypotension and positive orthostatics. Currently his blood pressure is 74/60 with a heart rate of 80. 02/08/24 10:20: WBC 7.1, RBC 2.34 L, Hgb 8.1 L, Hct 25.1 L, MCV 107.3 H, MCH 34.6 H, MCHC 32.3, RDW Std Deviation 53.9 H, RDW Coeff of Lorin 14.2, Plt Count 259, MPV 10.5, Immature Gran % (Auto) 0.600, Neut % (Auto) 64.2, Lymph % (Auto) 21.2, Patrick % (Auto) 8.4, Eos % (Auto) 4.5, Baso % (Auto) 1.1 H, Absolute Neuts (auto) 4.6, Absolute Lymphs (auto) 1.51, Nucleated RBC % 0, PT 14.4, INR 1.1, Sodium 136, Potassium 4.1, Chloride 105, Carbon Dioxide 24.0, Anion Gap 7, BUN 25 H, Creatinine 1.23, Estim Creat Clear Calc 54.03, Est GFR (MDRD) Af Amer 73, Est GFR (MDRD) Non-Af 60, BUN/Creatinine Ratio 20.3 H, Glucose 193 H, Lactic Acid 2.3 H*, Calcium 8.5, Iron 52 L, TIBC 320, Iron Saturation 16.2, Ferritin 48, Total Bilirubin 0.50, AST 18, ALT 19, Alkaline Phosphatase 100, Troponin I High Sens 3, Total Protein 6.7, Albumin 3.4, Globulin 3.3, Albumin/Globulin Ratio 1.0 02/08/24 11:35: Blood Type A POSITIVE, Antibody Screen NEGATIVE, Crossmatch See Detail 02/08/24 14:45: Hgb 6.6 L, Hct 20.6 L, Lactic Acid 3.3 H He had a CT scan abdomen pelvis that displayed: Stable 9 mm calculus in the right renal pelvis. Heterogeneous enlargement of the prostate with calcification. Small left adrenal adenoma. Fatty infiltration of the liver. Sigmoid diverticulosis. He is not bleeding at this time. [facility]LY [facility] Medical History Diastasis recti Essential hypertension Hyperlipidemia Low back pain without sciatica Obesity Spinal stenosis at L4-L5 level Home Medications cyanocobalamin (vitamin B-12) 1,000 mcg tablet (Vitamin B-12) 1,000 mcg PO QDAY 06/08/18 [History Last Taken 02/07/24] multivitamin 1 tab PO QDAY 06/08/18 [History Last Taken 02/07/24] omeprazole 20 mg capsule,delayed release 20 mg PO QDAY 06/08/18 [History Last Taken 02/07/24] simvastatin 40 mg tablet 40 mg PO QPM 06/08/18 [History Last Taken 02/07/24] valsartan 320 mg-hydrochlorothiazide 25 mg tablet (Diovan HCT) 1 tab PO QDAY 06/08/18 [History Last Taken 02/07/24] allopurinol 100 mg tablet 100 mg PO BID 06/13/18 [History Last Taken 02/07/24] aspirin 81 mg tablet,delayed release (Adult Aspirin Regimen) 81 mg PO DAILY 03/09/19 [History Last Taken 02/07/24] omega-3 acid ethyl esters 1 gram capsule (Lovaza) 1 cap PO BID 09/11/19 [History Last Taken 02/07/24] vit C 250 mg-vit E 90 mg-zinc 40 mg-copper 1 gb-jxxtrp-iffoyn capsule (PreserVision AREDS-2) 2 tab PO DAILY 09/23/20 [History Last Taken 02/07/24] sildenafil (pulm.hypertension) 20 mg tablet 20 mg PO Q24H PRN sexual activity 09/29/21 [History Last Taken Unknown] ursodiol 300 mg capsule 300 mg PO BID #60 caps 03/25/23 [Rx Last Taken 02/07/24] diclofenac sodium 75 mg tablet,delayed release 75 mg PO BID PRN pain #180 tabs 09/23/23 [Rx Last Taken Unknown] amitriptyline 25 mg tablet 25 mg PO QHS PRN sleep 02/08/24 [History Last Taken 02/07/24] potassium citrate 10 mEq (1,080 mg) tablet,extended release 10 meq PO TID 02/08/24 [History Last Taken 02/07/24] Allergy/AdvReac Type Severity Reaction Status Date / Time No Known Allergies Allergy Verified 02/08/24 10:05 Family History Father Dementia Mother Atrial fibrillation Surgical History History of cystoscopy (02/2008) History of tonsillectomy and adenoidectomy Social History Smoking Status: Never smoker second hand exposure: No alcohol intake: current alcohol intake frequency: a few times a week Alcohol type: wine substance use type: does not use caffeine: Yes Type: coffee Number of servings: 3 what type of physical activity do you participate in: none maria fernanda/confucianist: [employer] seatbelt use: always ROS Review of Systems ROS Unobtainable: Denies due to encephalopathy Constitutional Constitutional: Reports fatigue, malaise and weakness; Denies anorexia, chills or fever(s) Eyes Eyes: Denies change in vision ENT HEENT: Denies dysphagia Cardiovascular Cardiovascular: Reports chest pain, claudication, palpitations, paroxysmal nocturnal dyspnea and syncope Respiratory/Chest Respiratory/Chest: Reports cough, shortness of breath at rest and shortness of breath with exertion Physical Exam Const alert, oriented x3 and no apparent distress General Appearance: cooperative HEENT normocephalic, head/scalp atraumatic and oropharynx normal Mouth: dry mucous membranes Eyes PERRL and EOMs intact bilaterally Neck no lymphadenopathy and supple Lymph Lymphatic: no lymphadenopathy noted and no lymphedema noted Resp normal respiratory effort, normal air movement and clear to auscultation bilaterally Cardio regular rate, regular rhythm, S1 normal heart sound, S2 normal heart sound and no murmurs GI normal to inspection, nondistended, normoactive bowel sounds, soft to palpation and non-tender Extremity normal capillary refill, no clubbing, cyanosis or edema and no calf tenderness General Extremity: no tenderness to palpation of joints or extremities Skin General Skin Exam: no breakdown Neuro CN's II-XII intact bilaterally, no focal motor deficits, no sensory deficits noted and deep tendon reflexes 2+ bilaterally Motor Exam: strength 5/5 throughout and general weakness Psych thought process normal and cooperative Appearance: appropriate Lab / Micro Data 02/08/24 14:45 02/08/24 10:20 Labs: Laboratory Results - last 24 hr 02/08/24 10:20: WBC 7.1, RBC 2.34 L, Hgb 8.1 L, Hct 25.1 L, MCV 107.3 H, MCH 34.6 H, MCHC 32.3, RDW Std Deviation 53.9 H, RDW Coeff of Lorin 14.2, Plt Count 259, MPV 10.5, Immature Gran % (Auto) 0.600, Neut % (Auto) 64.2, Lymph % (Auto) 21.2, Patrick % (Auto) 8.4, Eos % (Auto) 4.5, Baso % (Auto) 1.1 H, Absolute Neuts (auto) 4.6, Absolute Lymphs (auto) 1.51, Nucleated RBC % 0, PT 14.4, INR 1.1, Sodium 136, Potassium 4.1, Chloride 105, Carbon Dioxide 24.0, Anion Gap 7, BUN 25 H, Creatinine 1.23, Estim Creat Clear Calc 54.03, Est GFR (MDRD) Af Amer 73, Est GFR (MDRD) Non-Af 60, BUN/Creatinine Ratio 20.3 H, Glucose 193 H, Lactic Acid 2.3 H*, Calcium 8.5, Iron 52 L, TIBC 320, Iron Saturation 16.2, Ferritin 48, Total Bilirubin 0.50, AST 18, ALT 19, Alkaline Phosphatase 100, Troponin I High Sens 3, Total Protein 6.7, Albumin 3.4, Globulin 3.3, Albumin/Globulin Ratio 1.0 02/08/24 11:35: Blood Type A POSITIVE, Antibody Screen NEGATIVE, Crossmatch See Detail 02/08/24 14:45: Hgb 6.6 L, Hct 20.6 L, Lactic Acid 3.3 H* Micro: Microbiology 02/08/24 10:20 Stool Stool Occult Blood (JAYE) - Final Occult Blood Positive Imaging Radiology Impression Abdomen/Pelvis CT 02/08/24 10:18 IMPRESSION: Stable 9 mm calculus in the right renal pelvis. Heterogeneous enlargement of the prostate with calcification. Small left adrenal adenoma. Fatty infiltration of the liver. Sigmoid diverticulosis. Electronically Signed: Yomi Bosch MD at 11:40 EDT , Assessment & Plan Assessment/Plan (1) Acute lower GI bleeding: PLAN: Differential diagnosis for lower GI bleed would include diverticular bleed, upper GI bleed rapid transit, hemorrhoidal bleeding, solitary rectal ulcer due to history of constipation, angiodysplasia. He should undergo an EGD and colonoscopy. At this time anesthesia does not want to sedate him because his blood pressure is low. Recommend transfused 3 units of packed red blood cells. Patient got a CT scan abdomen pelvis so he cannot get a CT angiography today. If he continues to bleed then he will need a bleeding scan. Reassess once patient's blood pressure is a little bit more stable so he can be sedated for procedure. Charges/Coding Visit Charges Inpatient E&M: 94661 Init Hosp L3
[2024-02-09 00:54] LABS: Hematocrit 23.2 % (40-54); Hemoglobin 7.8 g/dL (13.0-16.5)
[2024-02-09 02:36] VITALS: BMI 31.4
[2024-02-09 04:46] VITALS: BP 129/50; PULSE 85; RESP 16; TEMP 37.2; O2SAT 96
[2024-02-09] MEDS: 0.9% Normal Saline (1000mL) 1,000 ML 150 ML IV ×3 (04:56→19:05)
[2024-02-09 07:05] LABS: Absolute Lymphocyte Count 1.37 X10^3/uL (0.83-4.51); Absolute Neutrophil Count 5.3 X10^3/uL (2.0-7.7); Basophil# 0.05 X10^3/uL; Basophil% 0.6 % (0-1); Eosinophil# 0.24 X10^3/uL; Eosinophils% 3.1 % (0-5); Hematocrit 21.6 % (40-54); Hemoglobin 7.3 g/dL (13.0-16.5); Lymphocyte # 1.37 X10^3/ul (0.83-4.51); Lymphocyte % 17.6 % (19-41); Mean Corp Hgb Conc 33.8 g/dL (32-36); Mean Corpuscular Volume 100.5 fL (80-94); Mean Platelet Vol. 10.2 fl (6.2-12.0); Monocyte% 10.3 % (0-10); NRBC Flagged by Analyzer 0 % (0-5); Neutrophil # 5.31 X10^3/uL (2.7-7.7); Platelet Count 193 K/mm3 (150-450); RBC Distribution Width CV 17.9 % (11.6-14.6); RBC Distribution Width SD 64.4 fl (35.1-43.9); Red Blood Count 2.15 M/mm3 (4.6-6.2); White Blood Count 7.8 K/mm3 (4.4-11.0)
[2024-02-09 07:15] LABS: International Normalized Ratio 1.2; Prothrombin Time (Protime)PT. 15.2 SECONDS (11.7-14.9)
[2024-02-09 07:16] LABS: Partial Thromboplast Time 29.6 Seconds (24.1-36.2)
[2024-02-09 08:48] LABS: Anion Gap 7 (5-15); BUN 24 mg/dL (7-18); BUN/Creat Ratio 23.5 RATIO (10-20); Calcium,Total 7.7 mg/dL (8.5-10.1); Chloride 113 mmol/L (98-107); Creatinine, Serum 1.02 mg/dL (0.70-1.30); EST Glomerular Filtration Rate 74 mL/min (>60); Est Glom Filt Rate - Afr Amer 90 mL/min (>60); Estimated Creatinine Clearance 65.15 ml/min; Glucose 89 mg/dL (74-106); Potassium 3.9 mmol/L (3.5-5.1); Sodium Level 141 mmol/L (136-145)
[2024-02-09 11:00] VITALS: BP 134/55; PULSE 75; RESP 20; TEMP 37.1; O2SAT 95
--- NOTE | 2024-02-09 11:05 | CASEMGMT ---
RN CM Face to Face with patient for initial transition planning/care coordination assessment. RN CM introduced self and role at [facility]. Patient lying in bed, alert and oriented, at bedside. Patient willing to participate in assessment and is able to answer all questions appropriately. Care providers, pharmacy, and demographics verified. PCP: Dmitriy Specialists: Emily, neurologsit; Friend, GI; Kelly, ortho; Mina, hospital admissions clerk; Jewell, surgeon [facility] Preferred [facility] [employer] [facility] Prescription Benefit: yes Living Will/HPOA: yes, Stephanie Graham LNOK: Living Arrangements: Patient lives with in a single story home with 2 steps and railing to enter the home. Patient states he is independent at home. Transportation: self, DME/HHC: Patient has built in tub bench, raised toilet, and grab bars at home. No previous HHC or SNF. Will monitor for walker at discharge, prefers [facility]. Patient wishes to discharge home, denies need for home health at this time, will monitor progress with therapy. Patient states he has no further needs or concerns at this time. CM to follow for discharge planning needs that may arise. Disposition Plan: Patient to discharge home with family support and follow-up plans in place. Will monitor for HHC and walker at discharge. Unique WHARTON, RN, CM
[2024-02-09] MEDS: Pantoprazole Sodium 40 MG in 0.9% Normal Saline (100mL MB+) 100 ML 330 MG IV ×2 (11:43→22:00)
--- NOTE | 2024-02-09 12:55 | PN_ITS ---
Subjective Subjective Patient seen and examined. He had no complaints. He had no active events overnight. Review of systems is otherwise negative. He was transfused with 2 units of PRBCs. Hb dropped to 6.6 yesterday. Hb today is 7.3.GI is on board and he is awaiting EGD. Objective Data Objective Data Vital Signs: Vital Signs Temp Pulse Resp BP Pulse Ox O2 Del Method 98.9 F 85 16 129/50 H 96 Room Air 02/09/24 04:46 02/09/24 04:46 02/09/24 04:46 02/09/24 04:46 02/09/24 04:46 02/09/24 08:00 Oxygen Delivery Method Room Air Weight: 213 lb 2.992 oz Body Mass Index (BMI) 31.4 Intake & Output: Intake and Output for Last 24 Hours 02/07/24 02/08/24 02/09/24 23:59 23:59 23:59 Intake Total 2794.5 / 2794.5 2000 / 1999 Output Total 600 / 600 Balance 2794.5 / 2794.5 1400 / 1400 Lab / Micro Data 02/09/24 05:50 02/09/24 05:50 Labs: Laboratory Results - last 24 hr 02/08/24 10:20: PT 14.4, INR 1.1, Iron 52 L, TIBC 320, Iron Saturation 16.2, Fe rritin 48 02/08/24 11:35: Crossmatch See Detail 02/08/24 14:45: Hgb 6.6 L, Hct 20.6 L, Lactic Acid 3.3 H* 02/09/24 00:44: Hgb 7.8 L, Hct 23.2 L 02/09/24 05:50: WBC 7.8, RBC 2.15 L, Hgb 7.3 L, Hct 21.6 L, MCV 100.5 H D, MCH 34.0 H, MCHC 33.8, RDW Std Deviation 64.4 H, RDW Coeff of Lorin 17.9 H, Plt Count 193, MPV 10.2, Immature Gran % (Auto) 0.400, Neut % (Auto) 68.0, Lymph % (Auto) 17.6 L, Preston % (Auto) 10.3 H, Eos % (Auto) 3.1, Baso % (Auto) 0.6, Absolute Neuts (auto) 5.3, Absolute Lymphs (auto) 1.37, Nucleated RBC % 0, PT 15.2 H, INR 1.2, APTT 29.6, Sodium 141, Potassium 3.9, Chloride 113 H, Carbon Dioxide 21.0, Anion Gap 7, BUN 24 H, Creatinine 1.02, Estim Creat Clear Calc 65.15, Est GFR (MDRD) Af Amer 90, Est GFR (MDRD) Non-Af 74, BUN/Creatinine Ratio 23.5 H, Glucose 89, Calcium 7.7 L Micro: Microbiology 02/08/24 10:20 Stool Stool Occult Blood (JAYE) - Final Occult Blood Positive Physical Exam Const alert, oriented x3 and no apparent distress General Appearance: cooperative HEENT normocephalic, head/scalp atraumatic, moist oral mucous membranes and oropharynx normal Eyes PERRL and EOMs intact bilaterally Neck no lymphadenopathy and supple Lymph Lymphatic: no lymphadenopathy noted and no lymphedema noted Resp normal respiratory effort, normal air movement and clear to auscultation bilaterally Cardio regular rate, regular rhythm, S1 normal heart sound, S2 normal heart sound and no murmurs GI normal to inspection, nondistended, normoactive bowel sounds, soft to palpation and non-tender Extremity normal capillary refill, no clubbing, cyanosis or edema and no calf tenderness General Extremity: no tenderness to palpation of joints or extremities Skin General Skin Exam: no breakdown Neuro CN's II-XII intact bilaterally, no focal motor deficits, no sensory deficits noted and deep tendon reflexes 2+ bilaterally Motor Exam: strength 5/5 throughout and general weakness Psych thought process normal and cooperative Appearance: appropriate Assessment & Plan Assessment/Plan (1) Acute lower GI bleeding: (2) Orthostatic hypotension: (3) Anemia: PLAN: Plan #Acute anemia due to lower GI bleed * Hb today is 7.3. Hemoglobin was 8.1 on admission, but dropped to 6.6 on admission. Was transfused with 2 units of PRBCs. * Hemoglobin last year was around 13. * Hydrate patient aggressively with IV fluids at 150cc/hr. Orthostatics were positive. * GI on on board. Await rec's. * Lower GI bleed mediated to diverticular bleed in light of patient having history of diverticulosis. CT of the abdomen and pelvis showed evidence of sigmoid diverticulosis * #Orthostatic hypotension: Likely due to GI bleed. Being hydrated with IV fluids. 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 On gabapentin. #Hyperlipidemia: On statin. Hold all p.o. meds. Hypertension: On valsartan-hydrochlorothiazide. Will hold in light of lower GI bleed. IV hydralazine as needed #Nonalcoholic steatohepatitis: On ursodiol DVT prophylaxis: SCDs. CODE STATUS: Full code * Charges/Coding Visit Charges Inpatient E&M: 99311 Subs Hosp L2
[2024-02-09] MEDS: Bisacodyl 5 MG Tablet 20 MG PO (16:29)
[2024-02-09 16:34] VITALS: BP 107/54; PULSE 70; RESP 16; TEMP 36.4; O2SAT 94
[2024-02-09] MEDS: Polyethylene Glycol 3350 BOWEL PREP PO (19:03)
[2024-02-09 19:39] LABS: Hematocrit 23.7 % (40-54); Hemoglobin 7.8 g/dL (13.0-16.5)
[2024-02-09 22:09] VITALS: BP 110/62; PULSE 76; RESP 16; TEMP 36.7; O2SAT 95
[2024-02-10] VITALS (21 sets, daily range): BP systolic 105–141; BP diastolic 44–84; PULSE 62–87; RESP 16–18; TEMP 36–37; O2SAT 94–100; BMI 31.4
[2024-02-10] MEDS: 0.9% Normal Saline (1000mL) 1,000 ML 150 ML IV (03:15)
[2024-02-10 04:17] LABS: Absolute Lymphocyte Count 1.36 X10^3/uL (0.83-4.51); Absolute Neutrophil Count 5.5 X10^3/uL (2.0-7.7); Basophil# 0.07 X10^3/uL; Basophil% 0.9 % (0-1); Eosinophil# 0.22 X10^3/uL; Eosinophils% 2.8 % (0-5); Hematocrit 20.4 % (40-54); Hemoglobin 6.7 g/dL (13.0-16.5); Lymphocyte # 1.36 X10^3/ul (0.83-4.51); Lymphocyte % 17.2 % (19-41); Mean Corp Hgb Conc 32.8 g/dL (32-36); Mean Corpuscular Hgb 33.2 pg (27.0-32.0); Mean Platelet Vol. 9.5 fl (6.2-12.0); Monocyte# 0.76 X10^3/uL; Monocyte% 9.6 % (0-10); NRBC Flagged by Analyzer 0 % (0-5); Neutrophil # 5.48 X10^3/uL (2.7-7.7); Platelet Count 169 K/mm3 (150-450); RBC Distribution Width CV 17.9 % (11.6-14.6); RBC Distribution Width SD 64.4 fl (35.1-43.9); Red Blood Count 2.02 M/mm3 (4.6-6.2); White Blood Count 7.9 K/mm3 (4.4-11.0)
[2024-02-10 04:31] LABS: Anion Gap 5 (5-15); BUN 18 mg/dL (7-18); BUN/Creat Ratio 20.2 RATIO (10-20); Calcium,Total 7.4 mg/dL (8.5-10.1); Chloride 115 mmol/L (98-107); Creatinine, Serum 0.89 mg/dL (0.70-1.30); EST Glomerular Filtration Rate 87 mL/min (>60); Est Glom Filt Rate - Afr Amer 105 mL/min (>60); Estimated Creatinine Clearance 74.67 ml/min; Glucose 125 mg/dL (74-106); Sodium Level 143 mmol/L (136-145)
--- NOTE | 2024-02-10 05:25 | PCM.HOSP.N ---
Hospitalist Note Repeat Hgb 6.7, will give additional 1 u pRBC and repeat HH 1 hour following completion.
[2024-02-10] MEDS: Pantoprazole Sodium 40 MG in 0.9% Normal Saline (100mL MB+) 100 ML 330 MG IV ×2 (09:21→20:59)
--- NOTE | 2024-02-10 10:48 | PCM.PROGNOTE ---
Subjective Subjective Patient seen and examined. He had multiple episodes of rectal bleeding overnight. He has no other complaints. Review of systems is otherwise negative. Objective Data Objective Data Vital Signs: Vital Signs Temp Pulse Resp BP Pulse Ox O2 Del Method 98.1 F 82 18 125/57 H 99 Room Air 02/10/24 10:10 02/10/24 10:10 02/10/24 10:10 02/10/24 10:10 02/10/24 10:10 02/10/24 10:10 Oxygen Delivery Method Room Air Weight: 213 lb 2.992 oz Body Mass Index (BMI) 31.4 Intake & Output: Intake and Output for Last 24 Hours 02/08/24 02/09/24 02/10/24 23:59 23:59 23:59 Intake Total 2794.5 / 2794.5 4910 / 4910 1783.5 / 1783.5 Output Total 600 / 600 200 / 200 Balance 2794.5 / 2794.5 4310 / 4310 1583.5 / 1583.5 Lab / Micro Data 02/10/24 04:03 02/10/24 04:03 Labs: Laboratory Results - last 24 hr 02/08/24 11:35: Crossmatch See Detail 02/09/24 19:22: Hgb 7.8 L, Hct 23.7 L 02/10/24 04:03: WBC 7.9, RBC 2.02 L, Hgb 6.7 L, Hct 20.4 L, MCV 101.0 H, MCH 33.2 H, MCHC 32.8, RDW Std Deviation 64.4 H, RDW Coeff of Lorin 17.9 H, Plt Count 169, MPV 9.5, Immature Gran % (Auto) 0.500, Neut % (Auto) 69.0, Lymph % (Auto) 17.2 L, Gila % (Auto) 9.6, Eos % (Auto) 2.8, Baso % (Auto) 0.9, Absolute Neuts (auto) 5.5, Absolute Lymphs (auto) 1.36, Nucleated RBC % 0, Sodium 143, Potassium 4.0, Chloride 115 H, Carbon Dioxide 23.0, Anion Gap 5, BUN 18, Creatinine 0.89, Estim Creat Clear Calc 74.67, Est GFR (MDRD) Af Amer 105, Est GFR (MDRD) Non-Af 87, BUN/Creatinine Ratio 20.2 H, Glucose 125 H, Calcium 7.4 L Micro: Microbiology 02/10/24 03:20 Stool Enteric Bacteriology - Final 02/10/24 03:20 Stool Clostridioides difficile (PCR) - Final 02/08/24 10:20 Stool Stool Occult Blood (JAYE) - Final Occult Blood Positive Physical Exam Const alert, oriented x3 and no apparent distress Constitutional Narrative: looks very pale General Appearance: cooperative HEENT normocephalic, head/scalp atraumatic, moist oral mucous membranes and oropharynx normal Eyes PERRL and EOMs intact bilaterally Neck no lymphadenopathy and supple Lymph Lymphatic: no lymphadenopathy noted and no lymphedema noted Resp normal respiratory effort, normal air movement and clear to auscultation bilaterally Cardio regular rate, regular rhythm, S1 normal heart sound, S2 normal heart sound and no murmurs GI normal to inspection, nondistended, normoactive bowel sounds, soft to palpation and non-tender Extremity normal capillary refill, no clubbing, cyanosis or edema and no calf tenderness General Extremity: no tenderness to palpation of joints or extremities Skin General Skin Exam: no breakdown Neuro CN's II-XII intact bilaterally, no focal motor deficits, no sensory deficits noted and deep tendon reflexes 2+ bilaterally Motor Exam: strength 5/5 throughout and general weakness Psych thought process normal and cooperative Appearance: appropriate Assessment & Plan Assessment/Plan (1) Acute lower GI bleeding: (2) Orthostatic hypotension: (3) Anemia: PLAN: Plan #Acute anemia due to lower GI bleed Hb today is 6.7. Hemoglobin was 8.1 on admission, but dropped to 6.6 on admission. Was transfused with 2 units of PRBCs. Hemoglobin last year was around 13. Hydrate patient aggressively with IV fluids at 150cc/hr. Orthostatics were positive. GI on on board. Await rec's. Lower GI bleed mediated to diverticular bleed in light of patient having history of diverticulosis. CT of the abdomen and pelvis showed evidence of sigmoid diverticulosis will transfuse 2 more units of PRBCs today for colonoscopy by GI today. #Orthostatic hypotension: Likely due to GI bleed. Being hydrated with IV fluids. 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 On gabapentin. #Hyperlipidemia: On statin. Hold all p.o. meds. Hypertension: On valsartan-hydrochlorothiazide. Will hold in light of lower GI bleed. IV hydralazine as needed #Nonalcoholic steatohepatitis: On ursodiol DVT prophylaxis: SCDs. CODE STATUS: Full code Charges/Coding Visit Charges Inpatient E&M: 33450 Subs Hosp L3
[2024-02-10] MEDS: Epinephrine (1 mg/ml) 1 MG/ML VIAL (13:27)
[2024-02-10] MEDS: 0.9% Normal Saline (Pres. free 10 ML Vial (13:27)
--- NOTE | 2024-02-10 14:02 | OP.CCLET_ITS ---
02/10/2024 Anderson Izaguirre Re : Upper GI endoscopy procedure for Kerwin Graham Dear Dmitriy This procedure was performed on January. My impressions and recommendations are as follows: Impressions : - Normal esophagus. - Small hiatal hernia. - Gastric erosions with no stigmata of recent bleeding. Biopsied. - No gross lesions in the fourth portion of the duodenum. Recommendations : - Await pathology results. - Continue present medications. My findings are described in the full procedure note, which is enclosed. If I can be of further assistance, please feel free to contact me at . Sincerely, Portillo Buck, 02/10/2024 2:02:06 PM This report has been signed electronically.
--- NOTE | 2024-02-10 14:02 | OP.EGD_ITS ---
Patient Name: Kerwin Graham Procedure Date: 02/10/2024 12:19 PM Date of : 1940 Age: 83 Procedure: Upper GI endoscopy Indications: Hematochezia Providers: Portillo Buck DO Medicines: Monitored Anesthesia Care Patient Profile: This is an 83 year old male. Refer to note in patient chart for documentation of history and physical. Patient has symptoms. Complications: No immediate complications. Procedure: Pre-Anesthesia Assessment: - Prior to the procedure, a History and Physical was performed, and patient medications and allergies were reviewed. The patient is competent. The risks and benefits of the procedure and the sedation options and risks were discussed with the patient. All questions were answered and informed consent was obtained. Patient identification and proposed procedure were verified by the physician in the pre-procedure area. Mental Status Examination: alert and oriented. Airway Examination: normal oropharyngeal airway and neck mobility. Respiratory Examination: clear to auscultation. Prophylactic Antibiotics: The patient does not require prophylactic antibiotics. Prior Anticoagulants: The patient has taken no anticoagulant or antiplatelet agents. ASA Grade Assessment: III - A patient with severe systemic disease. After reviewing the risks and benefits, the patient was deemed in satisfactory condition to undergo the procedure. The anesthesia plan was to use monitored anesthesia care (MAC). Immediately prior to administration of medications, the patient was re-assessed for adequacy to receive sedatives. The heart rate, respiratory rate, oxygen saturations, blood pressure, adequacy of pulmonary ventilation, and response to care were monitored throughout the procedure. The physical status of the patient was re-assessed after the procedure. After obtaining informed consent, the endoscope was passed under direct vision. Throughout the procedure, the patient's blood pressure, pulse, and oxygen saturations were monitored continuously. The Colonoscope was introduced through the mouth, and advanced to the second part of duodenum. The upper GI endoscopy was accomplished without difficulty. The patient tolerated the procedure well. Scope In: 12:31:09 PM Scope Out: 12:37:04 PM Total Procedure Duration Time 0 hours 5 minutes 55 seconds Findings: The examined esophagus was normal. A small hiatal hernia was present. Two localized erosions with no stigmata of recent bleeding were found in the cardia. Biopsies were taken with a cold forceps for histology. No gross lesions were noted in the fourth portion of the duodenum. Impression: - Normal esophagus. - Small hiatal hernia. - Gastric erosions with no stigmata of recent bleeding. Biopsied. - No gross lesions in the fourth portion of the duodenum. Recommendation: - Await pathology results. - Continue present medications. Procedure Code(s): --- Professional --- 55367, Esophagogastroduodenoscopy, flexible, transoral; with biopsy, single or multiple CPT copyright 2021 [employer]. All rights reserved. The codes documented in this report are preliminary and upon orthopaedic general review may be revised to meet current compliance requirements. Portillo Buck DO 02/10/2024 2:02:06 PM This report has been signed electronically. Number of Addenda: 0 Note Initiated On: 02/10/2024 12:19 PM
--- NOTE | 2024-02-10 14:06 | OP.COLON_ITS ---
Patient Name: Kerwin Graham Procedure Date: 02/10/2024 12:37 PM Date of : 1940 Age: 83 Procedure: Colonoscopy Indications: Hematochezia Providers: Portillo Buck DO Medicines: Monitored Anesthesia Care Patient Profile: This is an 83 year old male. Refer to note in patient chart for documentation of history and physical. Patient has symptoms. Last Colonoscopy: date unknown. Complications: No immediate complications. Procedure: Pre-Anesthesia Assessment: - Prior to the procedure, a History and Physical was performed, and patient medications and allergies were reviewed. The patient is competent. The risks and benefits of the procedure and the sedation options and risks were discussed with the patient. All questions were answered and informed consent was obtained. Patient identification and proposed procedure were verified by the physician in the pre-procedure area. Mental Status Examination: alert and oriented. Airway Examination: normal oropharyngeal airway and neck mobility. Respiratory Examination: clear to auscultation. Prophylactic Antibiotics: The patient does not require prophylactic antibiotics. Prior Anticoagulants: The patient has taken no anticoagulant or antiplatelet agents. ASA Grade Assessment: III - A patient with severe systemic disease. After reviewing the risks and benefits, the patient was deemed in satisfactory condition to undergo the procedure. The anesthesia plan was to use monitored anesthesia care (MAC). Immediately prior to administration of medications, the patient was re-assessed for adequacy to receive sedatives. The heart rate, respiratory rate, oxygen saturations, blood pressure, adequacy of pulmonary ventilation, and response to care were monitored throughout the procedure. The physical status of the patient was re-assessed after the procedure. After I obtained informed consent, the scope was passed under direct vision. Throughout the procedure, the patient's blood pressure, pulse, and oxygen saturations were monitored continuously. The Colonoscope was introduced through the anus and advanced to the terminal ileum. The colonoscopy was performed without difficulty. The patient tolerated the procedure well. Scope In: 12:40:01 PM Scope Withdrawal Time 0 hours 58 minutes 23 seconds Scope Out: 1:42:11 PM Total Procedure Duration Time 1 hour 2 minutes 10 seconds Findings: The perianal and digital rectal examinations were normal. Multiple large-mouthed diverticula were found in the recto-sigmoid colon, sigmoid colon, descending colon and splenic flexure. Red blood was found in the entire colon. Multiple small and large-mouthed diverticula were found in the sigmoid colon. There was active bleeding coming from the diverticular opening. Area was successfully injected with 10 mL of a 0.1 mg/mL solution of epinephrine for drug delivery. Coagulation for hemostasis using heater probe was successful. To stop active bleeding, two hemostatic clips were successfully placed. Clip patternmaker grader: [employer]. There was no bleeding at the end of the procedure. Impression: - Diverticulosis in the recto-sigmoid colon, in the sigmoid colon, in the descending colon and at the splenic flexure. - Blood in the entire examined colon. - Severe diverticulosis in the sigmoid colon. There was active bleeding coming from the diverticular opening. Injected. Treated with a heater probe. Clips were placed. Clip patternmaker grader: [employer]. - No specimens collected. Recommendation: - [facility]. - Full liquid diet today. - Continue present medications. - No recommendation at this time regarding repeat colonoscopy. Procedure Code(s): --- Professional --- 89679, Colonoscopy, flexible; with control of bleeding, any method 70072, 59, Colonoscopy, flexible; with directed submucosal injection(s), any substance CPT copyright 2021 [employer]. All rights reserved. The codes documented in this report are preliminary and upon insurance policy clerk review may be revised to meet current compliance requirements. Portilol Buck DO 02/10/2024 2:06:15 PM This report has been signed electronically. Number of Addenda: 0 Note Initiated On: 02/10/2024 12:37 PM
--- NOTE | 2024-02-10 14:06 | OP.CCLET_ITS ---
02/10/2024 Anderson Izaguirre Re : Colonoscopy procedure for Kerwin Graham Dear Dmitriy This procedure was performed on January. My impressions and recommendations are as follows: Impressions : - Diverticulosis in the recto-sigmoid colon, in the sigmoid colon, in the descending colon and at the splenic flexure. - Blood in the entire examined colon. - Severe diverticulosis in the sigmoid colon. There was active bleeding coming from the diverticular opening. Injected. Treated with a heater probe. Clips were placed. Clip furniture installer: [employer]. - No specimens collected. Recommendations : - [facility]. - Full liquid diet today. - Continue present medications. - No recommendation at this time regarding repeat colonoscopy. My findings are described in the full procedure note, which is enclosed. If I can be of further assistance, please feel free to contact me at . Sincerely, Portillo Buck, 02/10/2024 2:06:15 PM This report has been signed electronically.
[2024-02-10] MEDS: Lactated Ringers 1,000 ML 15 ML IV (14:07)
[2024-02-10] MEDS: 0.9% Saline Lock 10 ML Syringe IV ×2 (14:39→21:01)
[2024-02-10] MEDS: 0.9% Normal Saline (1000mL) 1,000 ML 100 ML IV (14:39)
[2024-02-10 15:24] LABS: Hematocrit 18.1 % (40-54); POSITIVE COUNT YES
[2024-02-10 15:30] LABS: Hemoglobin 5.9 g/dL (13.0-16.5)
[2024-02-10 22:44] LABS: Hematocrit 26.4 % (40-54); Hemoglobin 8.6 g/dL (13.0-16.5)
[2024-02-11 02:38] VITALS: BP 117/53; PULSE 62; RESP 18; TEMP 36.2; O2SAT 95
[2024-02-11] MEDS: 0.9% Normal Saline (1000mL) 1,000 ML 100 ML IV (05:53)
[2024-02-11 06:06] LABS: Absolute Lymphocyte Count 1.22 X10^3/uL (0.83-4.51); Absolute Neutrophil Count 7.4 X10^3/uL (2.0-7.7); Basophil# 0.04 X10^3/uL; Basophil% 0.4 % (0-1); Eosinophil# 0.41 X10^3/uL; Eosinophils% 4.1 % (0-5); Hematocrit 24.3 % (40-54); Hemoglobin 8.2 g/dL (13.0-16.5); Lymphocyte # 1.22 X10^3/ul (0.83-4.51); Lymphocyte % 12.2 % (19-41); Mean Corp Hgb Conc 33.7 g/dL (32-36); Mean Corpuscular Hgb 31.9 pg (27.0-32.0); Mean Corpuscular Volume 94.6 fL (80-94); Mean Platelet Vol. 9.4 fl (6.2-12.0); Monocyte# 0.85 X10^3/uL; Monocyte% 8.5 % (0-10); NRBC Flagged by Analyzer 0 % (0-5); Neutrophil # 7.43 X10^3/uL (2.7-7.7); Neutrophil % 74.5 % (47-70); Platelet Count 144 K/mm3 (150-450); RBC Distribution Width CV 19.2 % (11.6-14.6); RBC Distribution Width SD 62.6 fl (35.1-43.9); Red Blood Count 2.57 M/mm3 (4.6-6.2)
[2024-02-11 06:32] LABS: Anion Gap 4 (5-15); BUN 13 mg/dL (7-18); BUN/Creat Ratio 15.6 RATIO (10-20); Calcium,Total 7.5 mg/dL (8.5-10.1); Chloride 116 mmol/L (98-107); Creatinine, Serum 0.83 mg/dL (0.70-1.30); EST Glomerular Filtration Rate 94 mL/min (>60); Est Glom Filt Rate - Afr Amer 114 mL/min (>60); Estimated Creatinine Clearance 80.07 ml/min; Glucose 99 mg/dL (74-106); Potassium 3.8 mmol/L (3.5-5.1); Sodium Level 143 mmol/L (136-145)
[2024-02-11 08:51] VITALS: BP 127/64; PULSE 70; RESP 18; TEMP 36.6; O2SAT 98
[2024-02-11] MEDS: Sodium Ferric Gluconat/Sucrose 250 MG in 0.9% Normal Saline (250mL Bag) 250 ML 135 MG IV (08:59)
[2024-02-11] MEDS: Pantoprazole Sodium 40 MG in 0.9% Normal Saline (100mL MB+) 100 ML 330 MG IV ×2 (09:00→21:21)
--- NOTE | 2024-02-11 12:30 | PN_ITS ---
Subjective Subjective Patient seen and examined. He feels well and has no active complaints. Review of systems otherwise negative. He had colonoscopy yesterday which showed extensive diverticulosis. There was active bleeding as well which was treated with heater probe. Objective Data Objective Data Vital Signs: Vital Signs Temp Pulse Resp BP Pulse Ox O2 Del Method 97.9 F 70 18 127/64 H 98 Room Air 02/11/24 08:51 02/11/24 08:51 02/11/24 08:51 02/11/24 08:51 02/11/24 08:51 02/11/24 08:51 Oxygen Delivery Method Room Air Weight: 213 lb 2.992 oz Body Mass Index (BMI) 31.4 Intake & Output: Intake and Output for Last 24 Hours 02/09/24 02/10/24 02/11/24 23:59 23:59 23:59 Intake Total 4910 / 4910 3433.25 / 3433.25 1210 / 1210 Output Total 600 / 600 750 / 750 480 / 480 Balance 4310 / 4310 2683.25 / 2683.25 730 / 730 Lab / Micro Data 02/11/24 05:50 02/11/24 05:50 Labs: Laboratory Results - last 24 hr 02/08/24 11:35: Crossmatch See Detail 02/08/24 11:35: Crossmatch See Detail 02/10/24 15:00: Hgb 5.9 L*, Hct 18.1 L, Diff Path Review March02/10/24 22:30: Hgb 8.6 L, Hct 26.4 L 02/11/24 05:50: WBC 10.0, RBC 2.57 L, Hgb 8.2 L, Hct 24.3 L, MCV 94.6 H D, MCH 31.9, MCHC 33.7, RDW Std Deviation 62.6 H, RDW Coeff of [place] 19.2 H, Plt Count 144 L, MPV 9.4, Immature Gran % (Auto) 0.300, Neut % (Auto) 74.5 H, Lymph % (Auto) 12.2 L, [place] % (Auto) 8.5, Eos % (Auto) 4.1, Baso % (Auto) 0.4, Absolute Neuts (auto) 7.4, Absolute Lymphs (auto) 1.22, Nucleated RBC % 0, Sodium 143, Potassium 3.8, Chloride 116 H, Carbon Dioxide 23.0, Anion Gap 4 L, BUN 13, Creatinine 0.83, Estim Creat Clear Calc 80.07, Est GFR (MDRD) Af Amer 114, Est GFR (MDRD) Non-Af 94, BUN/Creatinine Ratio 15.6, Glucose 99, Calcium 7.5 L Micro: Microbiology 02/10/24 03:20 Stool C. difficile GDH Antigen & Toxins - Final 02/10/24 03:20 Stool Clostridioides difficile (PCR) - Final 02/10/24 03:20 Stool Enteric Bacteriology - Final 02/08/24 10:20 Stool Stool Occult Blood (JAYE) - Final Occult Blood Positive Physical Exam Const alert, oriented x3 and no apparent distress General Appearance: cooperative HEENT normocephalic, head/scalp atraumatic, moist oral mucous membranes and oropharynx normal Eyes PERRL and EOMs intact bilaterally Neck no lymphadenopathy and supple Lymph Lymphatic: no lymphadenopathy noted and no lymphedema noted Resp normal respiratory effort, normal air movement and clear to auscultation bilaterally Cardio regular rate, regular rhythm, S1 normal heart sound, S2 normal heart sound and no murmurs GI normal to inspection, nondistended, normoactive bowel sounds, soft to palpation and non-tender Extremity normal capillary refill, no clubbing, cyanosis or edema and no calf tenderness General Extremity: no tenderness to palpation of joints or extremities Skin General Skin Exam: no breakdown Neuro CN's II-XII intact bilaterally, no focal motor deficits, no sensory deficits noted and deep tendon reflexes 2+ bilaterally Motor Exam: strength 5/5 throughout and general weakness Psych thought process normal and cooperative Appearance: appropriate Assessment & Plan Assessment/Plan (1) Acute lower GI bleeding: (2) Orthostatic hypotension: (3) Anemia: PLAN: Plan #Acute anemia due to lower GI bleed * S/p transfusion of 5 units of packed red blood cells since admission * Hemoglobin today is around 8. * CT abdomen and pelvis showed evidence of sigmoid diverticulosis. Colonoscopy showed extensive diverticulosis in the rectosigmoid, sigmoid and descending colon as well as the splenic flexure with blood in the entire examined colon. There was severe diverticulosis in the sigmoid colon with active bleeding coming from the diverticular opening and this was injected and treated with heater probe clips were placed. * Hb today is 8.2 today * Receiving IV iron today. * #Orthostatic hypotension: Likely due to GI bleed. Was hydrated with IV fluids. 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 On gabapentin. #Hyperlipidemia: On statin Hypertension: On valsartan-hydrochlorothiazide. #Nonalcoholic steatohepatitis: On ursodiol DVT prophylaxis: SCDs. CODE STATUS: Full code DIsposition: anticipate dc home tomorrow if he doesnt bleed again. * Charges/Coding Visit Charges Inpatient E&M: 64383 Subs Hosp L2
[2024-02-11 15:19] VITALS: BP 145/70; PULSE 80; RESP 18; TEMP 36.6; O2SAT 99
--- NOTE | 2024-02-11 15:27 | CASEMGMT ---
RN CM in to discuss needs at discharge. Therapy currently working with patient, did well. Patient thinking about possible outpatient therapy at discharge. RN CM to assist with obtaining script for patient to schedule on his own. Patient also wanting walker at discharge, prefers [employer]. Patient denies further needs at discharge. Green sheet on chart.
--- NOTE | 2024-02-11 17:14 | PN.GI_ITS ---
Subjective Subjective Patient underwent emergent EGD and colonoscopy yesterday. His upper endoscopy did not show any signs of acute GI bleeding. His colonoscopy did have active GI bleeding that was seen and treated yesterday endoscopically. Objective Data Objective Data Vital Signs: Vital Signs Temp Pulse Resp BP Pulse Ox O2 Del Method 97.9 F 80 18 145/70 H 99 Room Air 02/11/24 15:19 02/11/24 15:19 02/11/24 15:19 02/11/24 15:19 02/11/24 15:19 02/11/24 15:19 Oxygen Delivery Method Room Air Weight: 213 lb 2.992 oz Body Mass Index (BMI) 31.4 Intake & Output: Intake and Output for Last 24 Hours 02/09/24 02/10/24 02/11/24 23:59 23:59 23:59 Intake Total 4910 / 4910 3433.25 / 3433.25 1610 / 1610 Output Total 600 / 600 750 / 750 480 / 480 Balance 4310 / 4310 2683.25 / 2683.25 1130 / 1130 Lab / Micro Data 02/11/24 05:50 02/11/24 05:50 Labs: Laboratory Results - last 24 hr 02/08/24 11:35: Crossmatch See Detail 02/10/24 15:00: Diff Path Review March02/10/24 22:30: Hgb 8.6 L, Hct 26.4 L 02/11/24 05:50: WBC 10.0, RBC 2.57 L, Hgb 8.2 L, Hct 24.3 L, MCV 94.6 H D, MCH 31.9, MCHC 33.7, RDW Std Deviation 62.6 H, RDW Coeff of [place] 19.2 H, Plt Count 144 L, MPV 9.4, Immature Gran % (Auto) 0.300, Neut % (Auto) 74.5 H, Lymph % (Auto) 12.2 L, [place] % (Auto) 8.5, Eos % (Auto) 4.1, Baso % (Auto) 0.4, Absolute Neuts (auto) 7.4, Absolute Lymphs (auto) 1.22, Nucleated RBC % 0, Sodium 143, Potassium 3.8, Chloride 116 H, Carbon Dioxide 23.0, Anion Gap 4 L, BUN 13, Creatinine 0.83, Estim Creat Clear Calc 80.07, Est GFR (MDRD) Af Amer 114, Est GFR (MDRD) Non-Af 94, BUN/Creatinine Ratio 15.6, Glucose 99, Calcium 7.5 L Micro: Microbiology 02/10/24 03:20 Stool C. difficile GDH Antigen & Toxins - Final 02/10/24 03:20 Stool Clostridioides difficile (PCR) - Final 02/10/24 03:20 Stool Enteric Bacteriology - Final 02/08/24 10:20 Stool Stool Occult Blood (JAYE) - Final Occult Blood Positive Physical Exam Const alert, oriented x3 and no apparent distress Constitutional Narrative: looks very pale General Appearance: cooperative HEENT normocephalic, head/scalp atraumatic, moist oral mucous membranes and oropharynx normal Eyes PERRL and EOMs intact bilaterally Neck no lymphadenopathy and supple Lymph Lymphatic: no lymphadenopathy noted and no lymphedema noted Resp normal respiratory effort, normal air movement and clear to auscultation bilaterally Cardio regular rate, regular rhythm, S1 normal heart sound, S2 normal heart sound and no murmurs GI normal to inspection, nondistended, normoactive bowel sounds, soft to palpation and non-tender Extremity normal capillary refill, no clubbing, cyanosis or edema and no calf tenderness General Extremity: no tenderness to palpation of joints or extremities Skin General Skin Exam: no breakdown Neuro CN's II-XII intact bilaterally, no focal motor deficits, no sensory deficits noted and deep tendon reflexes 2+ bilaterally Motor Exam: strength 5/5 throughout and general weakness Psych thought process normal and cooperative Appearance: appropriate Assessment & Plan Assessment/Plan (1) Acute lower GI bleeding: PLAN: Acute lower GI bleeding secondary to diverticular bleeding status post endoscopic treatment. Patient is doing well has not seen any signs or symptoms of GI bleeding. If his hemoglobin continues to improve he should be able to be discharged to home tomorrow. Charges/Coding Visit Charges Inpatient E&M: 87605 Subs Hosp L3
[2024-02-11 21:03] VITALS: BP 141/67; PULSE 73; RESP 18; TEMP 36.3; O2SAT 96
[2024-02-11] MEDS: 0.9% Saline Lock 10 ML Syringe IV (21:20)
[2024-02-12] VITALS (7 sets, daily range): BP systolic 116–141; BP diastolic 55–72; PULSE 58–97; RESP 14–18; TEMP 36.5–37; O2SAT 93–100
[2024-02-12 05:26] LABS: Absolute Lymphocyte Count 1.21 X10^3/uL (0.83-4.51); Absolute Neutrophil Count 4.5 X10^3/uL (2.0-7.7); Basophil# 0.04 X10^3/uL; Basophil% 0.6 % (0-1); Eosinophils% 5.8 % (0-5); Hematocrit 23.2 % (40-54); Hemoglobin 7.5 g/dL (13.0-16.5); Lymphocyte # 1.21 X10^3/ul (0.83-4.51); Lymphocyte % 17.6 % (19-41); Mean Corp Hgb Conc 32.3 g/dL (32-36); Mean Corpuscular Volume 95.9 fL (80-94); Monocyte# 0.74 X10^3/uL; Monocyte% 10.7 % (0-10); NRBC Flagged by Analyzer 0 % (0-5); Neutrophil # 4.47 X10^3/uL (2.7-7.7); Neutrophil % 64.9 % (47-70); Platelet Count 156 K/mm3 (150-450); RBC Distribution Width CV 19.1 % (11.6-14.6); RBC Distribution Width SD 62.3 fl (35.1-43.9); Red Blood Count 2.42 M/mm3 (4.6-6.2); White Blood Count 6.9 K/mm3 (4.4-11.0)
[2024-02-12 05:40] LABS: Anion Gap 4 (5-15); BUN 9 mg/dL (7-18); BUN/Creat Ratio 11.6 RATIO (10-20); Calcium,Total 7.9 mg/dL (8.5-10.1); Chloride 115 mmol/L (98-107); Creatinine, Serum 0.78 mg/dL (0.70-1.30); EST Glomerular Filtration Rate 102 mL/min (>60); Est Glom Filt Rate - Afr Amer 123 mL/min (>60); Estimated Creatinine Clearance 83.07 ml/min; Glucose 104 mg/dL (74-106); Potassium 3.5 mmol/L (3.5-5.1); Sodium Level 142 mmol/L (136-145)
[2024-02-12] MEDS: Pantoprazole Sodium 40 MG in 0.9% Normal Saline (100mL MB+) 100 ML 330 MG IV (10:30)
--- NOTE | 2024-02-12 14:54 | DS.PCM_ITS ---
Providers Date of Admission: 02/08/24 Date of Discharge: 02/12/24 Primary Care Physician: Dr. Anderson Izaguirre MD Consultations 02/08/24 14:32 Consult: Gastroenterology Routine Consulting Provider: [facility] Reason for Consult: lower GI bleed, anemia EMERGENT Consult: No MD Notified: Yes Date Notified: 02/08/24 Time Notified: 14:33 Method of Notification: Text Reason For Visit: ANEMIA, ORTHOSTATIC HYPOTENSION Diagnosis Discharge Diagnosis (1) Acute lower GI bleeding: Status: Acute Code(s): K92.2 - Gastrointestinal hemorrhage, unspecified Plan #Acute anemia due to lower GI bleed * S/p transfusion of 5 units of packed red blood cells since admission * Hemoglobin today is around 8. * CT abdomen and pelvis showed evidence of sigmoid diverticulosis. Colonoscopy showed extensive diverticulosis in the rectosigmoid, sigmoid and descending colon as well as the splenic flexure with blood in the entire examined colon. There was severe diverticulosis in the sigmoid colon with active bleeding coming from the diverticular opening and this was injected and treated with heater probe clips were placed. * Hb today is 8.2 today * Receiving IV iron today. * #Orthostatic hypotension: Likely due to GI bleed. Was hydrated with IV fluids. 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 On gabapentin. #Hyperlipidemia: On statin Hypertension: On valsartan-hydrochlorothiazide. #Nonalcoholic steatohepatitis: On ursodiol DVT prophylaxis: SCDs. CODE STATUS: Full code DIsposition: anticipate dc home tomorrow if he doesnt bleed again. * Medications at Discharge Home Medications cyanocobalamin (vitamin B-12) 1,000 mcg tablet (Vitamin B-12) 1,000 mcg PO QDAY 06/08/18 multivitamin 1 tab PO QDAY 06/08/18 omeprazole 20 mg capsule,delayed release 20 mg PO QDAY 06/08/18 simvastatin 40 mg tablet 40 mg PO QPM 06/08/18 valsartan 320 mg-hydrochlorothiazide 25 mg tablet (Diovan HCT) 1 tab PO QDAY 06/08/18 allopurinol 100 mg tablet 100 mg PO BID 06/13/18 omega-3 acid ethyl esters 1 gram capsule (Lovaza) 1 cap PO BID 09/11/19 vit C 250 mg-vit E 90 mg-zinc 40 mg-copper 1 [id number] capsule (PreserVision AREDS-2) 2 tab PO DAILY 09/23/20 sildenafil (pulm.hypertension) 20 mg tablet 20 mg PO Q24H PRN sexual activity 09/29/21 ursodiol 300 mg capsule 300 mg PO BID #60 caps 03/25/23 diclofenac sodium 75 mg tablet,delayed release 75 mg PO BID PRN pain #180 tabs 09/23/23 amitriptyline 25 mg tablet 25 mg PO QHS PRN sleep 02/08/24 potassium citrate 10 mEq (1,080 mg) tablet,extended release 10 meq PO TID 02/08/24 ferrous sulfate 325 mg (65 mg iron) tablet,delayed release 325 mg PO BID #60 tabs 02/12/24 Hospital Course Operations None Procedures Colonoscopy Summary of Care Provided Minutes Spent on Discharge: 55 Hospital Course: RENEE ALVARADO, is a 83 M who presents via the ED on 02/08/2024 with a complaint of lightheaded and dizzy. He was having some coffee and says he tried to stand up and felt dizzy and lightheadedness. He has had diarrhea for about a week and noticed blood when he wiped himself today. His diarrhea has started improving. He denied any abdominal pain, chest pain, nausea or vomiting or any other symptoms. Review of systems is otherwise negative. Patient admits to a 5 to 7 pound weight loss over the last month but says this has been intentional as he was recently diagnosed with fatty liver disease and so is trying to lose weight. He has been on the [place] diet for this. He does have a history of diverticulosis. Vitals in the ED were BP of 114/89, OR of 93, RR of 16 and oxygen sats of 98% on room air. CBC showed WBC of 7.1 with Hb of 8.1, wbc of 7.1 and platelets of 259. Chemistry showed lactic acid of 2.3 and creatinine of 1.23 as well as sodium of 136. CT of the abdomen and pelvis showed a stable 9 mm calculus in the right renal pelvis with heterogeneous enlargement of the prostate with calcification and small left adrenal adenoma with fatty infiltration of the liver and sigmoid diverticulosis. Stool for occult blood done was positive though rectal exam also showed that there was layne blood. Orthostatics checked were positive. He was admitted to be managed for dizziness due to positive orthostatic hypotension in the setting of rectal bleeding. He was admitted and hydrated with IV fluids. His hemoglobin subsequently dropped some more to 6.6 due to ongoing rectal bleeding. He was transfused with 2 units of packed red blood cells. He did require another unit and in total during his admission stay was transfused a total of 5 units of packed red blood cells. Gastroenterology was consulted. Patient had EGD which showed a normal esophagus with small hiatal hernia and gastric erosions with no stigmata of recent bleeding and no gross lesions in the fourth portion of the duodenum. Patient had colonoscopy which showed extensive diverticulosis most severe in the sigmoid colon but affecting the rectosigmoid and descending colon as well as sigmoid colon and splenic flexure with blood in the entire examined colon. There was active bleeding coming from the diverticular opening in the sigmoid colon and this was injected and treated with heater probe. Hemoglobin was 8.2 after the colonoscopy but it dropped to 7.5 on the day of discharge. Patient had had no rectal bleeding since the colonoscopy though. He was transfused with another unit of packed red blood cells before discharge. He also did receive iron infusion. He was started on p.o. iron supplementation. He was discharged home on 02/12/2024 on p.o. ferrous sulfate 325 mg twice daily. He is to follow- up with his primary care doctor and is to follow-up with gastroenterology on outpatient basis. Of note, patient's aspirin 81 mg daily was also discontinued at time of discharge. Patient seen and examined prior to discharge. He had no active complaints and had an uneventful night. Review of systems otherwise negative. Labs and vitals reviewed. Home medication reviewed and reconciled. Physical Exam Const alert, oriented x3 and no apparent distress General Appearance: cooperative, comfortable, well kempt and well developed HEENT normocephalic, head/scalp atraumatic, hearing grossly normal bilaterally, moist oral mucous membranes and oropharynx normal Mouth: oral and palatal mucosa normal Eyes PERRL and EOMs intact bilaterally Neck no lymphadenopathy and supple Lymph Lymphatic: no lymphadenopathy noted and no lymphedema noted Resp normal respiratory effort, normal air movement and clear to auscultation bilaterally Cardio regular rate, regular rhythm, S1 normal heart sound, S2 normal heart sound and no murmurs GI normal to inspection, nondistended, normoactive bowel sounds, soft to palpation and non-tender Extremity normal to inspection, full ROM, normal capillary refill, no clubbing, cyanosis or edema and no calf tenderness General Extremity: no tenderness to palpation of joints or extremities Skin no rashes or lesions noted General Skin Exam: no breakdown Neuro oriented x3, CN's II-XII intact bilaterally, moves all extremities, no focal motor deficits, no sensory deficits noted and deep tendon reflexes 2+ bilaterally Sensorium / Orientation: awake and alert Motor Exam: strength 5/5 throughout and general weakness Psych thought process normal and cooperative Appearance: appropriate Weight / BMI Weight Weight: 213 lb 2.992 oz Body Mass Index (BMI) 31.4 ABG / Lab / Microbiology Data 02/12/24 05:02 02/12/24 05:02 Laboratory: Laboratory Results - last 24 hr 02/12/24 05:02: WBC 6.9, RBC 2.42 L, Hgb 7.5 L, Hct 23.2 L, MCV 95.9 H, MCH 31.0, MCHC 32.3, RDW Std Deviation 62.3 H, RDW Coeff of Lorin 19.1 H, Plt Count 156, MPV 10.0, Immature Gran % (Auto) 0.400, Neut % (Auto) 64.9, Lymph % (Auto) 17.6 L, [place] % (Auto) 10.7 H, Eos % (Auto) 5.8 H, Baso % (Auto) 0.6, Absolute Neuts (auto) 4.5, Absolute Lymphs (auto) 1.21, Nucleated RBC % 0, Sodium 142, Potassium 3.5, Chloride 115 H, Carbon Dioxide 23.0, Anion Gap 4 L, BUN 9, Creatinine 0.78, Estim Creat Clear Calc 83.07, Est GFR (MDRD) Af Amer 123, Est GFR (MDRD) Non-Af 102, BUN/Creatinine Ratio 11.6, Glucose 104, Calcium 7.9 L 02/12/24 09:45: Blood Type A POSITIVE, Antibody Screen NEGATIVE, Crossmatch See Detail Microbiology: Microbiology 02/10/24 03:20 Stool C. difficile GDH Antigen & Toxins - Final 02/10/24 03:20 Stool Clostridioides difficile (PCR) - Final 02/10/24 03:20 Stool Enteric Bacteriology - Final 02/08/24 10:20 Stool Stool Occult Blood (JAYE) - Final Occult Blood Positive D/C Instructions Discharge Diet: Low fat / Low cholesterol Weight Bearing Status: Weight bearing as tolerated Call your doctor if you observe: Fever of 101 or Higher, Shortness of breath, Dizziness, Swelling in the ankles and Chest pain Meaningful Use Info Meaningful Use Diagnoses (Choose all that apply): None applicable Discharge Plan Admission Admit Date/Time: 02/08/24 12:34 Primary Reason for Your Visit: acute blood loss anemia due to diverticular bleed Attending Provider: Masha Dominguez Primary Care Provider: Anderson Izaguirre Instructions Patient Instructions: Understanding Rectal Bleeding, ED Diverticulosis Discharge Orders/Prescriptions Prescriptions: New ferrous sulfate 325 mg (65 mg iron) tablet,delayed release (DR/EC) 325 mg PO BID Qty: 60 2RF Continued cyanocobalamin (vitamin B-12) [Vitamin B-12] 1,000 mcg tablet 1,000 mcg PO QDAY valsartan-hydrochlorothiazide [Diovan HCT] 320-25 mg tablet 1 tab PO QDAY multivitamin tablet 1 tab PO QDAY simvastatin 40 mg tablet 40 mg PO QPM omeprazole 20 mg capsule,delayed release(DR/EC) 20 mg PO QDAY allopurinol 100 mg tablet 100 mg PO BID omega-3 acid ethyl esters [Lovaza] 1 gram capsule 1 cap PO BID PreserVision AREDS-2 [id number] gp-[id number]-mg capsule 2 tab PO DAILY Rx Instructions: administer with meals sildenafil (pulm.hypertension) 20 mg tablet 20 mg PO Q24H PRN (Reason: sexual activity) Patient Comments: TAKE 1-3 TABLETS DAILY ONE HOUR PRIOR TO INTERCOURSE diclofenac sodium 75 mg tablet,delayed release (DR/EC) 75 mg PO BID PRN (Reason: pain) Qty: 180 2RF amitriptyline 25 mg tablet 25 mg PO QHS PRN potassium citrate 10 mEq (1,080 mg) tablet extended release 10 meq PO TID Patient Comments: pt states he normally takes 1 bid. ursodiol 300 mg capsule 300 mg PO BID Qty: 60 11RF Discontinued aspirin [Adult Aspirin Regimen] 81 mg tablet,delayed release (DR/EC) 81 mg PO DAILY Referrals / Follow Up: Portillo Buck DO [Med Staff - Active Staff] - Within 2 Weeks Anderson Izaguirre MD [Primary Care Provider] - Within 1 Week Disposition Disposition (needs filled in before D/C Order can be placed): Home, Self Care Charges/Coding Visit Charges Inpatient E&M: 15667 Disch Hosp >30min
[2024-02-12 17:43] LABS: Hematocrit 27.5 % (40-54); Hemoglobin 8.9 g/dL (13.0-16.5)
[2024-02-14 09:37] LABS: Pathologist Review Reviewed
== END 2024-02-12 18:59 | disposition home or self-care (01) | DRG 378 ==
LOC: ED 12:08 → MS3 12:48 → PCU 20:30
PROVIDERS: Anesthesiology; Family Medicine; Internal Medicine Gastroenterology; Admitting Provider Student in an Organized Health Care Education/Training Program; Emergency Provider Emergency Medicine; PCP Family Medicine; Visit Provider Student in an Organized Health Care Education/Training Program
PROC: 0DJD8ZZ Inspection of Lower Intestinal Tract, Via Natural or Artificial Opening Endoscopic (ICD-10-PCS; CPT 45378; principal; 2024-02-10 12:30)
DX: K57.31 Diverticulosis of large intestine without perforation or abscess with bleeding (principal); D62 Acute posthemorrhagic anemia; K75.81 Nonalcoholic steatohepatitis (NASH); I10 Essential (primary) hypertension; I95.1 Orthostatic hypotension; E78.5 Hyperlipidemia, unspecified; K44.9 Diaphragmatic hernia without obstruction or gangrene; M48.061 Spinal stenosis, lumbar region without neurogenic claudication; G62.89 Other specified polyneuropathies; E66.9 Obesity, unspecified; Z68.31 Body mass index [BMI] 31.0-31.9, adult; Z79.1 Long term (current) use of non-steroidal anti-inflammatories (NSAID); Z79.82 Long term (current) use of aspirin; Z79.899 Other long term (current) drug therapy
CPT/HCPCS: 36415; 74177; 80048; 80053; 82274; 82728; 83540; 83550; 83605; 84484; 85014; 85018; 85025; 85610; 85730; 86850; 86900; 86901; 86920; 86922; 87493; 87506; 93005; 97116; 97162; 97166; 97530; 99285; J7030; J7040; J7050; J7120; P9016; Q9967; A4216; A4648; J2405; J2916; J3490

== ENCOUNTER → 2024-03-27 | Outpatient (CLI) | payer MEDICARE, OTHER, SELFPAY ==
[2024-03-27 10:30] LABS: Absolute Lymphocyte Count 1.25 X10^3/uL (0.83-4.51); Absolute Neutrophil Count 3.4 X10^3/uL (2.0-7.7); Basophil# 0.06 X10^3/uL; Basophil% 1.1 % (0-1); Eosinophil# 0.22 X10^3/uL; Eosinophils% 3.9 % (0-5); Hematocrit 37.6 % (40-54); Hemoglobin 12.6 g/dL (13.0-16.5); Lymphocyte # 1.25 X10^3/ul (0.83-4.51); Lymphocyte % 22.1 % (19-41); Mean Corp Hgb Conc 33.5 g/dL (32-36); Mean Corpuscular Hgb 33.4 pg (27.0-32.0); Mean Corpuscular Volume 99.7 fL (80-94); Mean Platelet Vol. 10.5 fl (6.2-12.0); Monocyte# 0.67 X10^3/uL; Monocyte% 11.8 % (0-10); NRBC Flagged by Analyzer 0 % (0-5); Neutrophil # 3.44 X10^3/uL (2.7-7.7); Neutrophil % 60.7 % (47-70); Platelet Count 191 K/mm3 (150-450); RBC Distribution Width CV 16.9 % (11.6-14.6); RBC Distribution Width SD 61.7 fl (35.1-43.9); Red Blood Count 3.77 M/mm3 (4.6-6.2); White Blood Count 5.7 K/mm3 (4.4-11.0)
[2024-03-27 11:08] LABS: International Normalized Ratio 1.1
[2024-03-27 11:09] LABS: Hemoglobin A1c 5.1 % (3.8-5.6)
[2024-03-27 11:53] LABS: ALB/GLOB Ratio 0.9 RATIO (0.9-2.4); AST(SGOT) 19 U/L (15-37); Alanine Aminotransfer ALT/SGPT 22 U/L (16-61); Albumin, Serum 3.6 g/dL (3.2-5.0); Alkaline Phosphatase 104 U/L (45-117); Anion Gap 9 (5-15); BUN 37 mg/dL (7-18); BUN/Creat Ratio 35.2 RATIO (10-20); CRP < 2.90 mg/L (0.0-3.0); Calcium,Total 8.9 mg/dL (8.5-10.1); Chloride 113 mmol/L (98-107); Cholesterol 141 mg/dL (200); Creatinine, Serum 1.05 mg/dL (0.70-1.30); EST Glomerular Filtration Rate 72 mL/min (>60); Est Glom Filt Rate - Afr Amer 87 mL/min (>60); Ferritin 52 ng/mL (26-388); Globulin 3.8 g/dL (2.2-4.2); Glucose 101 mg/dL (74-106); High Density Lipoprotein 43 mg/dL; Iron 107 ug/dL (65-175); Iron Binding Capacity,Total 336 ug/dL (250-450); PERCENT IRON SATURATION 31.8 % (15.0-55.0); Protein, Total 7.4 g/dL (6.4-8.2); Sodium Level 139 mmol/L (136-145); Triglycerides 149 mg/dL; Very Low Density Lipoprotein 30 mg/dL (5-40)
[2024-03-28 13:08] LABS: AFP, Tumor Marker 2.1 ng/mL (0.0-6.4)
== END | disposition home or self-care (01) ==
LOC: MTLAB 09:46
PROVIDERS: PCP Family Medicine; Referring Provider Internal Medicine; Visit Provider Internal Medicine
DX: K76.0 Fatty (change of) liver, not elsewhere classified (principal); D64.9 Anemia, unspecified; E78.5 Hyperlipidemia, unspecified; G62.9 Polyneuropathy, unspecified
CPT/HCPCS: 36415; 80053; 80061; 82105; 82728; 83036; 83540; 83550; 83605; 85025; 85610; 86140

== ENCOUNTER → 2024-04-20 | Outpatient (CLI) | payer MEDICARE, OTHER, SELFPAY ==
--- NOTE | 2024-04-20 16:03 | RAD_ITS ---
STUDY: X-RAY - CERVICAL SPINE REASON FOR EXAM: Male, 83 years old. Bilateral cervical radiculopathies TECHNIQUE: 4 view(s) of the cervical spine were obtained. COMPARISON: None FINDINGS: Normal anterior atlantoaxial articulation. Normal odontoid process. Normal cervical lordosis. 3 mm retrolisthesis of C5 on C6, otherwise normal alignment. Significantly limited range of motion with flexion. No subluxations. There is multi-level endplate spondylosis. There is multi-level degenerative disc disease with multilevel disc space narrowing. The soft tissue structures are unremarkable. There is no demonstrated fracture of the cervical spine. RAD/Cerv Spine 2 or 3 Views IMPRESSION: Degenerative changes. No acute abnormality. Electronically Signed: Supa Tovar MD at 16:30 EDT ,
== END | disposition home or self-care (01) ==
LOC: MTRAD 16:03
PROVIDERS: PCP Family Medicine; Referring Provider Psychiatry & Neurology Neurology; Visit Provider Psychiatry & Neurology Neurology
DX: M54.12 Radiculopathy, cervical region (principal)
CPT/HCPCS: 72040

== ENCOUNTER → 2024-05-02 | Outpatient (CLI) | payer MEDICARE, OTHER, SELFPAY ==
--- NOTE | 2024-05-02 12:51 | EKG12_ITS ---
Test Reason : PREOP Blood Pressure : / mmHG Vent. Rate : 062 BPM Atrial Rate : 062 BPM P-R Int : 204 ms QRS Dur : 086 ms QT Int : 398 ms P-R-T Axes : 039 -40 023 degrees QTc Int : 403 ms Normal sinus rhythm Left axis deviation Abnormal ECG Confirmed by Laureano Ritchie ([id number]), editor managing director MIRZA LANCASTER ([id number]) on 05/03/2024 5:54:13 AM Referred By: Sp Mendoza Confirmed By:Laureano Ritchie
--- NOTE | 2024-05-02 13:05 | RAD_ITS ---
STUDY: X-RAY CHEST REASON FOR EXAM: Male, 83 years old. Preoperative evaluation. TECHNIQUE: Frontal and lateral views of the chest. COMPARISON: None. FINDINGS: Low volume inspiration. Bibasilar atelectasis. There is no demonstrated pleural abnormality. Cardiomegaly. Normal mediastinum and ilene. Normal visualized pulmonary arteries. Aortic tortuosity and calcification. Thoracic osteopenia with diffuse mild thoracic spondylosis. Normal visualized ribs, clavicles, and shoulders. No abnormality of the visualized soft tissue structures of the upper abdomen. RAD/Chest PA and Lateral IMPRESSION: Cardiomegaly with low volume inspiration and no acute or active cardiopulmonary disease. Electronically Signed: José Galeana MD at 9:32 EDT ,
[2024-05-02 13:30] LABS: Absolute Lymphocyte Count 1.11 X10^3/uL (0.83-4.51); Absolute Neutrophil Count 2.6 X10^3/uL (2.0-7.7); Basophil# 0.04 X10^3/uL; Basophil% 0.9 % (0-1); Eosinophil# 0.17 X10^3/uL; Eosinophils% 3.8 % (0-5); Hematocrit 39.4 % (40-54); Hemoglobin 13.2 g/dL (13.0-16.5); Lymphocyte # 1.11 X10^3/ul (0.83-4.51); Lymphocyte % 24.9 % (19-41); Mean Corp Hgb Conc 33.5 g/dL (32-36); Mean Corpuscular Volume 101.5 fL (80-94); Monocyte# 0.49 X10^3/uL; NRBC Flagged by Analyzer 0 % (0-5); Neutrophil # 2.64 X10^3/uL (2.7-7.7); Neutrophil % 59.2 % (47-70); Platelet Count 176 K/mm3 (150-450); RBC Distribution Width CV 15.6 % (11.6-14.6); Red Blood Count 3.88 M/mm3 (4.6-6.2); White Blood Count 4.5 K/mm3 (4.4-11.0)
[2024-05-02 13:39] LABS: International Normalized Ratio 1.1
[2024-05-02 13:40] LABS: Partial Thromboplast Time 30.1 Seconds (24.1-36.2)
[2024-05-02 14:16] LABS: Anion Gap 5 (5-15); BUN 40 mg/dL (7-18); BUN/Creat Ratio 35.1 RATIO (10-20); Calcium,Total 9.1 mg/dL (8.5-10.1); Chloride 113 mmol/L (98-107); Creatinine, Serum 1.14 mg/dL (0.70-1.30); EST Glomerular Filtration Rate 65 mL/min (>60); Est Glom Filt Rate - Afr Amer 79 mL/min (>60); Glucose 123 mg/dL (74-106); Potassium 4.5 mmol/L (3.5-5.1); Sodium Level 139 mmol/L (136-145)
== END | disposition home or self-care (01) ==
LOC: PSN 12:48
PROVIDERS: PCP Family Medicine; Referring Provider Orthopaedic Surgery; Visit Provider Orthopaedic Surgery
DX: Z01.810 Encounter for preprocedural cardiovascular examination (principal); Z01.811 Encounter for preprocedural respiratory examination; Z01.812 Encounter for preprocedural laboratory examination; Z01.818 Encounter for other preprocedural examination; I10 Essential (primary) hypertension; E78.00 Pure hypercholesterolemia, unspecified; Z79.82 Long term (current) use of aspirin; Z79.899 Other long term (current) drug therapy
CPT/HCPCS: 36415; 71046; 80048; 85025; 85610; 85730; 93005

== ENCOUNTER → 2024-05-03 | Outpatient (CLI) | payer MEDICARE, OTHER, SELFPAY ==
--- NOTE | 2024-05-03 12:07 | NEURO ---
NCS and/or EMG Patient Report Ordering Doctor: Anderson Diaz DATE OF SERVICE: 05/03/24 Kerwin presents with numbness and tingling in both hands, slightly worse on the right side. Electrodiagnostic findings: Right median motor nerve demonstrates prolonged distal latency with normal amplitude and reduced conduction velocity. Left median motor nerve demonstrates prolonged distal latency with normal amplitude and reduced conduction velocity. Ulnar motor responses are within normal limits. Prolonged right and left median F-waves. Absent median sensory latencies at the wrist and palm. Normal ulnar and radial sensory responses. Needle EMG testing was performed the upper limbs. All muscles tested showed no evidence of denervation with normal motor unit action potentials. Electrodiagnostic impression: This is an abnormal study in the upper limbs 1. Electrodiagnostic findings suggestive of bilateral median mononeuropathy. This is suggestive of a moderate to advanced bilateral carpal tunnel syndrome. Multi Select Codes Neurology Neurology Interp Codes: 12190-91 Musc test done w/n test comp (interp) (2) and 42853-99 Nrv cndj test 13/> studies (interp)
== END | disposition home or self-care (01) ==
LOC: PSN 08:26
PROVIDERS: PCP Family Medicine; Referring Provider Psychiatry & Neurology Neurology; Visit Provider Psychiatry & Neurology Neurology
DX: R20.2 Paresthesia of skin (principal); G62.9 Polyneuropathy, unspecified
CPT/HCPCS: 95886; 95913

== ENCOUNTER 2024-06-15 06:59 | Observation (INO) | payer MEDICARE, OTHER, SELFPAY ==
[2024-06-15] VITALS (16 sets, daily range): BP systolic 129–169; BP diastolic 59–88; PULSE 63–88; RESP 14–18; TEMP 35.8–36.4; O2SAT 84–100; BMI 33.2; BMI 33.4
[2024-06-15] MEDS: Lactated Ringers 1,000 ML 15 ML IV (06:29)
--- NOTE | 2024-06-15 06:30 | RAD_ITS ---
PROCEDURE: T9/T10 laminectomy with spinal cord stimulator implantation. DATE OF EXAMINATION: June 15, 2024. INDICATION: Male, 83 years old. Back pain. FLUOROSCOPY TIME (if supplied): (29.8 seconds) minutes/seconds. 8.14 mGy. 3 images were submitted. RAD/Spine 1 View Any Level IMPRESSION: Intraoperative fluoroscopic imaging provided for spinal cord stimulator implantation. The tip of the electrodes is at the T7-T8 level. Electronically Signed: Yomi Bosch MD at 9:49 EDT ,
--- NOTE | 2024-06-15 06:57 | PN.ORTHO_ITS ---
Subjective Subjective Seen and examined postop. Resting comfortably. Pain controlled. No complaints Objective Data Objective Data Vital Signs: Vital Signs Temp Pulse Resp BP Pulse Ox O2 Del Method 96.9 F L 72 18 147/85 H 97 Room Air 06/15/24 06:20 06/15/24 06:20 06/15/24 06:20 06/15/24 06:20 06/15/24 06:20 06/15/24 06:20 Oxygen Delivery Method Room Air Weight: 218 lb 4.122 oz Body Mass Index (BMI) 33.2 Physical Exam Const alert, oriented x3 and no apparent distress General Appearance: cooperative, comfortable and well kempt HEENT normocephalic and head/scalp atraumatic Eyes EOMs intact bilaterally and conjunctivae normal Neck full ROM General: normal visual inspection Chest inspection of chest normal and palpation of chest normal Resp normal respiratory effort and normal air movement Cardio regular rate, regular rhythm and peripheral pulses 2+ throughout GI soft to palpation, non-tender and non-distended Back/Spine Back/Spine Narrative: Dressings clean dry and intact Cervical Spine: cervical ROM normal Thoracic Spine / Upper Back: normal to inspection Lumbar Spine / Lower Back: normal to inspection Extremity normal to inspection, full ROM, normal capillary refill, no clubbing, cyanosis or edema and no calf tenderness Skin no rashes or lesions noted General Skin Exam: no breakdown Neuro oriented x3, CN's II-XII intact bilaterally, moves all extremities, no focal motor deficits, no sensory deficits noted and deep tendon reflexes 2+ bila terally Motor Exam: muscle tone normal throughout Assessment & Plan Assessment/Plan (1) Lumbar spondylosis: PLAN: Okay to admit See orders Discharge planning, likely home tomorrow
--- NOTE | 2024-06-15 06:57 | OP.PCM_ITS ---
Report of Operation Date of Procedure: 06/15/24 Description of Surgical Findings:: REPORT OF OPERATION PREOPERATIVE DIAGNOSES: 1. Lumbar stenosis, spondylosis. 2. Chronic back pain POSTOPERATIVE DIAGNOSES: 1. Lumbar stenosis, spondylosis. 2. Chronic back pain PROCEDURE PERFORMED: 1. T9-10 partial bilateral laminectomies. 2. Dorsal column stimulator paddle lead placement. 3. Subcutaneous placement of dorsal column stimulator generator. 4. Neuro monitoring bilateral upper and bilateral lower extremities 5. One hour of complex programming postoperatively. STATEMENT OF MEDICAL NECESSITY: This patient is a 83-year-old male with intractable back and leg pain. The patient has opted for treatment of operative intervention, understanding the risks to include, infection, bleeding, damage to nerves, arteries and veins, possibility of continued pain, paralysis, hardware failure, need for additional surgery, pulmonary embolism, heart attack, stroke, or . DESCRIPTION OF PROCEDURE: The patient was identified in the preoperative holding area. There, the patient received the preoperative IV antibotics and then transferred to the operating suite. Once in the operating suite, after general endotracheal anesthesia was established, the patient was transferred to the [place] operating table in the prone position. All bony prominences were padded accordingly. The thoracolumbar spine was prepped and draped in standard surgical fashion. Incision was made over the thoracolumbar spine. An incision was centered over the T9-10 interlaminar space, taken down to the thoracic fascia. The fascia was then divided and subperiosteal dissection was taken down to the level of the facet joints. Partial bilateral laminectomies were performed at the T9-10 interspace, with part of the inferior lamina of T9, and superior lamina of T10. At this point the paddle lead was placed spanning from T8 inferiorly. It was then anchored to the fascia using standard anchors with a silk suture. A second incision was made in the left posterior iliolumbar region as a battery pocket. Wires from the stimulator were then passed subcutaneously with a passing device to the battery pocket and then connected to a new generator battery. Both incisions were then irrigated and closed with #1 vicryl for the fascia, 2-0 vicryl for subcutaneous, and 2-0 nylon for skin. Sterile dressings were applied with 4 x 4, ABD, and tape. Sponge, instrument, and needle counts were correct at the end of the case. The patient was extubated, taken to PACU without incident. Neuromonitoring was maintained at baseline throughout the duration of the case. Then one hour was spent with complex programming when the patient recovered Surgeon: Sp Mendoza Type of Anesthesia: General Estimated Blood Loss (mL): 10cc Fluids Replaced: 1500c Grafts/Implants Used: [employer] Complications None Admit VTE Documentation VTE Present on Admission: No
--- NOTE | 2024-06-15 06:57 | PCM.DC.SUM ---
Providers Date of Admission: 06/15/24 Primary Care Physician: Dr. Anderson Izaguirre MD Reason For Visit: LUMBAR SPONDYLOSIS Medications at Discharge Home Medications cyanocobalamin (vitamin B-12) 1,000 mcg tablet (Vitamin B-12) 1,000 mcg PO QDAY 06/08/18 multivitamin 1 tab PO QDAY 06/08/18 omeprazole 20 mg capsule,delayed release 20 mg PO QDAY 06/08/18 simvastatin 40 mg tablet 40 mg PO QPM 06/08/18 valsartan 320 mg-hydrochlorothiazide 25 mg tablet (Diovan HCT) 1 tab PO QHS 06/08/18 allopurinol 100 mg tablet 100 mg PO BID 06/13/18 omega-3 acid ethyl esters 1 gram capsule (Lovaza) 1 cap PO BID 09/11/19 vit C 250 mg-vit E 90 mg-zinc 40 mg-copper 1 [id number]-jazohm capsule (PreserVision AREDS-2) 2 tab PO DAILY 09/23/20 sildenafil (pulm.hypertension) 20 mg tablet 20 mg PO Q24H PRN sexual activity 09/29/21 metformin 500 mg tablet 500 mg PO BID 90 days #180 tabs 03/27/24 cholecalciferol (vitamin D3) 125 mcg (5,000 unit) tablet (Vitamin D3) 125 mcg PO DAILY 06/01/24 hydrocodone-acetaminophen 5-325mg 5mg-325mg 1 tab PO Q6H 7 days #28 tabs 06/15/24 hydrocodone-acetaminophen 5-325mg 5mg-325mg 1 tab PO Q6H 7 days #28 tabs 06/15/24 Hospital Course Operations - (T9-10 laminectomy with implantation of permanent spinal cord stimulator lead and generator) Summary of Care Provided Minutes Spent on Discharge: 15 Hospital Course: The patient is an 83-year-old male who underwent implantation of permanent spinal cord stimulator lead and generator on 06/15/2024. He was subsequently admitted. The hospitalist was consulted for medical management. The patient progressed well. His pain was well-controlled and he was mobilizing well. No significant medical issues were reported. He was subsequently discharged home on 06/16/2024 to follow-up with Dr. Mendoza 3 weeks Physical Exam Const alert, oriented x3 and no apparent distress General Appearance: cooperative, comfortable and well kempt Neck full ROM General: normal visual inspection Resp normal respiratory effort and normal air movement Effort and Inspection: able to speak in complete sentences Cardio regular rate and peripheral pulses 2+ throughout GI soft to palpation, non-tender and non-distended Back/Spine Back/Spine Narrative: Dressings clean dry and intact. IncisionS well-approximated with interrupted sutures in place. Cervical Spine: cervical ROM normal Thoracic Spine / Upper Back: normal to inspection Lumbar Spine / Lower Back: normal to inspection Extremity normal to inspection, full ROM, normal capillary refill, no clubbing, cyanosis or edema and no calf tenderness Skin no rashes or lesions noted General Skin Exam: no breakdown Neuro oriented x3, CN's II-XII intact bilaterally, moves all extremities, no focal motor deficits, no sensory deficits noted and deep tendon reflexes 2+ bilaterally Motor Exam: strength 5/5 throughout and muscle tone normal throughout Weight / BMI Weight Weight: 218 lb 4.122 oz Body Mass Index (BMI) 33.2 D/C Instructions Discharge Diet: No restrictions Additional Activity Instructions: No repetitive bending, twisting, reaching, lifting more than 5 pounds Call your doctor if your incision/area has: Continuous Slow Oozing, Sudden Increased Bleeding, Increased Pain/ Swelling, Increased Redness, Foul Smelling Discharge and Swelling at the incision site Call your doctor if you observe: Fever of 101 or Higher, Coldness, Increased Pain, Numbness or Tingling, Change in Color, Inability to urinate, Inability to have a bowel movement, Using more than 1 pad per hour, Shortness of breath, Dizziness, Fainting spells, Swelling in the ankles, Chest pain, Prolonged hiccupping, Increased palpitations (irregular heartbeat), Calf discomfort and Uncontrolled pain Additional Dressing/Incision Instructions: Change dressings daily with dry gauze and tape. Do not put anything else on incisions Additional Instructions: 1. During your procedure, you received sedation through your IV. Please follow these instructions for the next 24 hours: Do not drive a motor vehicle, do not drink any alcoholic beverages, and do not sign any legal documents or make personal or business decisions. A responsible adult should stay with you at least 6 hours after the procedure. 2. Keep your surgical site/incision clean and the dressing dry and intact. Change dressingS daily. You may use an ice pack at the surgical site to reduce any swelling or discomfort. 3. Monitor the incision site for any signs or symptoms of infection. Watch for redness, excessive swelling or drainage, or continued pain at the incision site after 3 days. Contact your physician immediately for a fever, chills or a temperature of 101.5? F or greater. 4. Take your medication exactly as prescribed by your physician. Do not attempt to wean yourself off any of your medications even though your pain is improving. This process needs to be carefully monitored by your doctor. Take any antibiotics prescribed exactly as directed and until they are gone. 5. Avoid stretching, bending, pulling, twisting or any sudden movements. Do not bend or twist at the waist. Do not raise your arms above your head 6. No lifting greater than 5 pounds. 7. Do not operate a motor vehicle, equipment or a power tool while your stimulator is on or while taking pain medication. If you need to use any equipment, you must turn your stimulator off first. As a passenger in a motor vehicle, you may use your stimulator. 8. Do not have any manipulation done by a chiropractor or any other physician without first consulting with the physician who placed your spinal cord stimulator. 9. Without movement, you may note changes in the intensity of the stimulator. For example, you may notice a different stimulation when you are standing than when you are sitting or lying down. This is normal the first few weeks following the implant and will stabilize over time. 10. Please contact our office if you are even scheduled for a CT scan or an MRI. 11. Please call us if you have any questions, problems or concerns. Please Follow Up With: Sp Mendoza DO When: 3 weeks Meaningful Use Info Meaningful Use Meaningful Use Diagnoses (Choose all that apply): None applicable Ischemic Stroke Statin Dosing Therapy Reference: STATIN DOSE THERAPY REFERENCE: * Patients > 75 years receive moderate or high dose statin therapy. * Patients 75 years or YOUNGER should receive HIGH intensity statin dose unless contraindicated. You will be required to document reason for non-treatment if statin daily dose does not meet guidelines. HIGH DOSE STATIN THERAPY DAILY Atorvastatin > than or = to 40 mg Rosuvastatin > than or = to 20 mg Amlodipine + Atorvastatin > than or = to 2.5/40 mg Ezetimibe + Simvastatin 10/80 mg Simvastatin 80mg Discharge Plan Admission Admit Date/Time: 06/15/24 06:59 Attending Provider: Sp Mendoza Primary Care Provider: Anderson Izaguirre Consulting Providers: Chelle Alcala Discharge Orders/Prescriptions Prescriptions: New hydrocodone-acetaminophen 5-325 mg tablet 1 tab PO Q6H 7 Days Qty: 28 0RF hydrocodone-acetaminophen 5-325 mg tablet 1 tab PO Q6H 7 Days Qty: 28 0RF Continued cyanocobalamin (vitamin B-12) [Vitamin B-12] 1,000 mcg tablet 1,000 mcg PO QDAY valsartan-hydrochlorothiazide [Diovan HCT] 320-25 mg tablet 1 tab PO QHS multivitamin tablet 1 tab PO QDAY simvastatin 40 mg tablet 40 mg PO QPM omeprazole 20 mg capsule,delayed release(DR/EC) 20 mg PO QDAY allopurinol 100 mg tablet 100 mg PO BID omega-3 acid ethyl esters [Lovaza] 1 gram capsule 1 cap PO BID PreserVision AREDS-2 [id number]-mg capsule 2 tab PO DAILY Rx Instructions: administer with meals sildenafil (pulm.hypertension) 20 mg tablet 20 mg PO Q24H PRN (Reason: sexual activity) Patient Comments: TAKE 1-3 TABLETS DAILY ONE HOUR PRIOR TO INTERCOURSE metformin 500 mg tablet 500 mg PO BID 90 Days Qty: 180 1RF cholecalciferol (vitamin D3) [Vitamin D3] 125 mcg (5,000 unit) tablet 125 mcg PO DAILY Referrals / Follow Up: Sp Mendoza DO [Med Staff - Active Staff] - Anderson Izaguirre MD [Primary Care Provider] - Disposition Disposition (needs filled in before D/C Order can be placed): Home, Self Care
--- NOTE | 2024-06-15 07:18 | PCM.PRE.AN2 ---
ASA Classification* ASA Classification ASA Classification: 2 Assessment & Plan Anesthesia* Anesthesia Assessment Anesthesia Assessment: Discussed sedation and/or anesthesia options, risks, benefits, and alternatives with patient/parents/legal guardian/POA. Questions invited. The patient/parents/legal guardian/POA seems to understand and agrees to proceed with anesthesia plan. Reviewed the physical assessment, medical history, allergy history and patient home medications list prior to surgery/procedure/anesthetic and documented any changes. Performed airway and anesthesia risk assessments. Anesthesia Type Anesthesia Type: General Anesthesia Focused Assessment* Temperature: 96.9 F Pulse Rate: 72 Blood Pressure: 147/85 Respiratory Rate: 18 Pulse Ox: 97 Airway Assessment Mouth opens: >3 cm Mallampati Score: II Focused Labs Anesthesia Preop lab: CBC WBC 4.5 K/mm3 (4.4-11.0) 05/02/24 13:14 RBC 3.88 M/mm3 (4.6-6.2) L 05/02/24 13:14 Hgb 13.2 g/dL (13.0-16.5) 05/02/24 13:14 Hct 39.4 % (40-54) L 05/02/24 13:14 Plt Count 176 K/mm3 (150-450) 05/02/24 13:14 CHEMISTRY Potassium 4.5 mmol/L (3.5-5.1) 05/02/24 13:14 Sodium 139 mmol/L (136-145) 05/02/24 13:14 BUN 40 mg/dL (7-18) H 05/02/24 13:14 Creatinine 1.14 mg/dL (0.70-1.30) 05/02/24 13:14 Glucose 123 mg/dL (74-106) H 05/02/24 13:14 TSH 3.08 uIU/mL (0.358-3.74) 02/05/23 11:06 COAG PT 14.0 SECONDS (11.7-14.9) 05/02/24 13:14 Pre-Assessment Diagnosis/Proposed Procedure Planned Operative Procedure(s): T9-T10 LAMINECTOMY IMPLANTATION OF PERMANENT SPINAL CORD STIMULATOR Anesthesia History 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 When Was Last Pacemaker Check QUESTION #4 FULL TEXT: You/Your Family Experience fever (hyperthermia) with Anesthesia Last Oral Intake Last Oral intake: Last Oral Intake NPO since 20:30 06/15/24 06:20 Meds taken in AM with sips of No 06/15/24 06:20 water? Meds patient instructed to take am of surgery PONV PONV - roller printing supervisor: PONV - roller printing supervisor Female No 06/01/24 13:53 HX of Motion Sickness No 06/01/24 13:53 HX of N/V After Surgery No 06/01/24 13:53 Non-Smoker Yes 06/01/24 13:53 Duration of Surgery greater Yes 06/01/24 13:53 than 60 minutes Number of Risk Factors 2 06/01/24 13:53 PONV Score Moderate Risk 06/01/24 13:53 Height & Weight Height & Weight: Anesthesia: Height & Weight Height 5 ft 8 in 06/15/24 06:20 Weight: 99 kg 06/15/24 06:20 Body Mass Index (BMI) 33.2 06/15/24 06:20 Respiratory Assessment Respiratory Assessment - roller printing supervisor: Respiratory Tract Infection Hx - roller printing supervisor Hx Respiratory Tract Infection No 06/01/24 13:53 STOP Sleep Apnea STOP Sleep Apnea - roller printing supervisor: STOP Sleep Apnea - roller printing supervisor Hx Hypertension Yes: CONTROLLED WITH MED 06/01/24 13:53 Hx Sleep Apnea No 06/01/24 13:53 CPAP BIPAP Do you snore loudly (louder No 06/01/24 13:53 than talking or can be heard Do you often feel tired/ No 06/01/24 13:53 fatigued/ sleepy during daytime? Has anyone observed you stop No 06/01/24 13:53 breathing during sleep? STOP Results Negative 06/01/24 13:53 QUESTION #5 FULL TEXT : Do you snore loudly (louder than talking or can be heard through closed doors)? 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 Specify any problems Hx of Preganancy in last 3 N/A 06/01/24 13:53 Months Nurse Filling Out Transfusion DSCHRIBER 06/01/24 13:53 & Questions: Date: 06/01/24 06/01/24 13:53 Time: 13:54 06/01/24 13:53 Patient unable to answer at this time (ie. confused, unrespo /Reproduction History /Reproductive History - roller printing supervisor: /Reproductive Hx- roller printing supervisor Hx Now No 06/01/24 13:53 Gestational Age (in weeks): EDC: Hx Hx Para Hx Section SAB No 06/01/24 13:53 Active Medications Active Medications: Current Medications Generic Name Dose Route Start Last Admin Trade Name Freq PRN Reason Stop Dose Admin Acetaminophen 1,000 mg 06/15/24 14:00 Acetaminophen 500 Mg Tablet PO Q8 FRANDY Allopurinol 100 mg 06/15/24 10:00 Allopurinol 100 Mg Tablet PO BID FRANDY Enteral Nutritional Formula 237 ml 06/15/24 08:00 Ensure Surgery 237 Ml Liquid PO TIDCM FRANDY Cefazolin Sodium 2 gm/ Sodium 110 mls @ 150 mls/hr 06/15/24 07:30 Chloride IV 06/15/24 08:13 PREOP ONE Lactated Ringer's 1,000 mls @ 15 mls/hr 06/15/24 06:15 06/15/24 06:29 IV 15 mls/hr .Q48H FRANDY Administration Lactated Ringer's 1,000 mls @ 100 mls/hr 06/15/24 07:00 IV .Q10H [facility] Cefazolin Sodium 1 gm in 50 mls @ 100 mls/hr 06/15/24 07:00 IV Q8H [facility] Metformin HCl 500 mg 06/15/24 10:00 Metformin Hcl 500 Mg Tablet PO BID [facility] Morphine Sulfate 2 - 4 mg 06/15/24 06:57 Morphine 4 Mg/Ml Syringe IV Q2H PRN PRN Pain Score 6-10 Multivitamins 1 tablet 06/15/24 07:00 Multivitamins,Therapeutic Tablet PO QDAY [facility] Multivitamins/Minerals cap 06/15/24 10:00 Multivitamin (Healthy Eyes) Capsule PO DAILY [facility] Non-Formulary Medication 125 mcg 06/15/24 10:00 Cholecalciferol (Vitamin D3) [Vitamin D3] PO DAILY [facility] Non-Formulary Medication 1,000 mcg 06/15/24 07:00 Cyanocobalamin (Vitamin B-12) [Vitamin B-12] PO QDAY [facility] Non-Formulary Medication 20 mg 06/15/24 06:58 Sildenafil (Pulm.Hypertension) PO Q24H PRN sexual activity Non-Formulary Medication 40 mg 06/15/24 21:00 Simvastatin PO QPM [facility] Non-Formulary Medication 1 tablet 06/15/24 22:00 Valsartan-Hydrochlorothiazide [Diovan Hct] PO QHS [facility] [id number] Ethyl Esters gm 06/15/24 10:00 Mccaskill-3 Acid Ethyl Esters 1 Gm Capsule PO BID [facility] Oxycodone HCl 2.5 - 5 mg 06/15/24 06:57 Oxycodone 5 Mg Tablet PO Q4H PRN PRN Pain Score 6-10 Pantoprazole Sodium 20 mg 06/15/24 07:00 Pantoprazole Sodium 20 Mg Tablet PO QDAY [facility] PFSH Medical History (Updated 06/15/24 @ 07:[address] Sp Mendoza, DO) Wears glasses Cancer Prostate disease Low iron High cholesterol Neuropathic arthritis NAFLD (nonalcoholic fatty liver disease) History of hiatal hernia History of GI bleed History of diverticulitis Gastric reflux Non-smoker Shortness of breath on exertion Leg cramps History of edema History of echocardiogram History of stress test Cardiology follow-up encounter Segmental dysfunction of lumbar region Segmental dysfunction of cervical region Anemia Obesity Essential hypertension Spinal stenosis at L4-L5 level Low back pain without sciatica Diastasis recti Hyperlipidemia Home Medications ?Medication ?Instructions ?Recorded ?Last Taken ?Type cyanocobalamin (vitamin B-12) 1,000 mcg PO QDAY 06/08/18 06/07/24 History 1,000 mcg tablet (Vitamin B-12) multivitamin 1 tab PO QDAY 06/08/18 06/07/24 History omeprazole 20 mg capsule,delayed 20 mg PO QDAY 06/08/18 06/14/24 History release simvastatin 40 mg tablet 40 mg PO QPM 06/08/18 06/14/24 History valsartan 320 1 tab PO QHS 06/08/18 06/14/24 History mg-hydrochlorothiazide 25 mg tablet (Diovan HCT) allopurinol 100 mg tablet 100 mg PO BID 06/13/18 06/14/24 History omega-3 acid ethyl esters 1 gram 1 cap PO BID 09/11/19 06/07/24 History capsule (Lovaza) vit C 250 mg-vit E 90 mg-zinc 40 2 tab PO DAILY 09/23/20 06/07/24 History mg-copper 1 [id number] capsule (PreserVision AREDS-2) sildenafil (pulm.hypertension) 20 20 mg PO Q24H PRN sexual activity 09/29/21 Unknown History mg tablet metformin 500 mg tablet 500 mg PO BID 90 days #180 tabs 03/27/24 06/14/24 Rx cholecalciferol (vitamin D3) 125 125 mcg PO DAILY 06/01/24 06/07/24 History mcg (5,000 unit) tablet (Vitamin D3) hydrocodone-acetaminophen 5-325mg 1 tab PO Q6H 7 days #28 tabs 06/15/24 Unknown Rx 5mg-325mg Allergy/AdvReac Type Severity Reaction Status Date / Time No Known Allergies Allergy Verified 06/01/24 13:49 Family History Father Dementia Mother Atrial fibrillation Surgical History (Updated 06/01/24 @ 14:05 by Janneth Vanessa) Hx of right cataract extraction Hx of left cataract extraction History of esophagogastroduodenoscopy (EGD) Hx of parathyroidectomy History of tonsillectomy and adenoidectomy History of cystoscopy (02/2008) Social History Smoking Status: Never smoker second hand exposure: No alcohol intake: current alcohol intake frequency: a few times a week Alcohol type: wine substance use type: does not use caffeine: Yes Type: coffee Number of servings: 3 what type of physical activity do you participate in: none maria fernanda/presybeterian: Holiness seatbelt use: always Review of Systems (Anesthesia) ROS Narrative System reviewed and no additional complaints, except as documented.
[2024-06-15] MEDS: Cefazolin 2 GM in 0.9% Normal Saline (100mL Bag) 100 ML IV (07:30)
[2024-06-15] MEDS: THROMBIN (RECOMBINANT) 20,000 UNIT VIAL 20000 UNIT TOPICAL (08:27)
[2024-06-15] MEDS: Bupivacaine 0.25% 30 ML Vial (09:00)
--- NOTE | 2024-06-15 09:34 | PCM.POST.ANE ---
Anesthesia: Postop Eval I Current Vital Signs Temperature: 97 F Pulse Rate: 65 Blood Pressure: 130/69 Respiratory Rate: 16 Pulse Ox: 94 Oxygen Delivery Method: Room Air Assessment Airway patent: Yes Spontaneous unlabored respirations: Yes Mental status: Awake and Calm nausea: No Vomiting: No Anesthesia Complication: No Fluid Hydration Crystalloid volume administer (ml): 1,500 Total IV fluid infused: 1,500 Progress Note Anesthesia document: Postop Eval 1 completed: Yes
--- NOTE | 2024-06-15 09:47 | POSTOPAN2_ITS ---
Anesthesia Postop Eval I Sum Postop Eval Completion status Anesthesia document: Postop Eval 1 completed: Yes Anesthesia Postop Eval I Summary Anesthesia Postop Eval I Summary: Anesthesia Postop Eval I: Assessment Summary Airway patent Yes 06/15/24 09:35 SUPPORT [email or web address] Spontaneous unlabored Yes 06/15/24 09:35 SUPPORT [email or web address].MDOT respirations Mental status Awake,Calm 06/15/24 09:35 SUPPORT [email or web address].MDOT nausea No 06/15/24 09:35 SUPPORT [email or web address].MDOT Vomiting No 06/15/24 09:35 SUPPORT [email or web address].[email or web address] Anesthesia Postop Eval I: Fluid Summary Crystalloid volume administer 1,500 06/15/24 09:35 SUPPORT ASSOCIATE.MDOT (ml) Colloids volume administered ( ml) Blood Product volume administered (ml) Total IV fluid infused 1,500 06/15/24 09:35 SUPPORT [email or web address].[email or web address] Anesthesia Postop Eval I: Summary Notes Anesthesia Complication No 06/15/24 09:35 SUPPORT [email or web address].[email or web address] Anesthesia Complication Comment: Post-operative progress note Anesthesia: Postop Eval II Evaluation Mental status: Awake and Calm Pain Level: 2 nausea: No Vomiting: No Complications Anesthesia Complication: No
--- NOTE | 2024-06-15 09:47 | PCM.POSTANE2 ---
Anesthesia Postop Eval I Sum Postop Eval Completion status Anesthesia document: Postop Eval 1 completed: Yes Anesthesia Postop Eval I Summary Anesthesia Postop Eval I Summary: Anesthesia Postop Eval I: Assessment Summary Airway patent Yes 06/15/24 09:35 PARENT [email or web address] Spontaneous unlabored Yes 06/15/24 09:35 PARENT COACH.MDOT respirations Mental status Awake,Calm 06/15/24 09:35 PARENT COACH.MDOT nausea No 06/15/24 09:35 PARENT COACH.MDOT Vomiting No 06/15/24 09:35 PARENT [email or web address] Anesthesia Postop Eval I: Fluid Summary Crystalloid volume administer 1,500 06/15/24 09:35 PARENT COACH.MDOT (ml) Colloids volume administered ( ml) Blood Product volume administered (ml) Total IV fluid infused 1,500 06/15/24 09:35 PARENT [email or web address] Anesthesia Postop Eval I: Summary Notes Anesthesia Complication No 06/15/24 09:35 PARENT [email or web address] Anesthesia Complication Comment: Post-operative progress note Anesthesia: Postop Eval II Evaluation Mental status: Awake and Calm Pain Level: 2 nausea: No Vomiting: No Complications Anesthesia Complication: No
[2024-06-15] MEDS: oxyCODONE 5 MG Tablet PO (11:09)
--- NOTE | 2024-06-15 13:56 | PCM.PN.HOSP ---
Reason for Visit Reason for Visit: Diagnoses Spondylosis without myelopathy or radiculopathy, lumbar region (06/15/24) Subjective Subjective Patient s/p T9-10 partial bilateral laminectomy, dorsal column stimulator paddle lead placement, subcutaneous placement dorsal column stimulator generator per Dr. Mendoza. Patient's postoperative intervention transition to medical surgical floor currently denying any specific pain except that location just above stimulator placement site but notes it is more throbbing and aching, 2-3 out of 10 in severity and is not impairing his movement in the bed. Only complaint primarily he notes is that he feels as though his mouth is dry which is not his baseline. He notes moving all extremities with no paresthesias or any shooting pain. Patient denies fevers, chills, nausea, emesis, abdominal pain, chest pain or dyspnea. Objective Data Objective Data Vital Signs: Vital Signs Temp Pulse Resp BP Pulse Ox O2 Del Method O2 Flow Rate 97.3 F L 71 18 144/76 H 97 Room Air 2 06/15/24 12:28 06/15/24 12:28 06/15/24 12:28 06/15/24 12:28 06/15/24 12:28 06/15/24 12:28 06/15/24 10:20 Oxygen Flow Rate (L/min) 2 Oxygen Delivery Method Room Air Weight: 220 lb Body Mass Index (BMI) 33.4 Intake & Output: Intake and Output for Last 24 Hours 06/13/24 06/14/24 06/15/24 23:59 23:59 23:59 Intake Total 1110 / 1110 Balance 1110 / 1110 Radiography Diagnostic Testing: Radiology Impression Spine X-Ray 06/15/24 06:30 IMPRESSION: Intraoperative fluoroscopic imaging provided for spinal cord stimulator implantation. The tip of the electrodes is at the T7-T8 level. Electronically Signed: Yomi Bosch MD at 9:49 EDT , Physical Exam Narrative Physical Examination: General: Awake, alert, oriented x 3 and cooperative, seated upright in the MS bed, no marked complaints, notes pain is minimal. Skin: Normal color, normal turgor, no icterus, no cyanosis Except for recent intervention with lower thoracic/lumbar dressing in place with no drainage. HEENT: AT/NC, EOMI, PERRLA, mildly dry MM. Lungs: Mildly diminished, greater bases, appropriate effort, no rales, ronchi or wheezing. Heart: Regular rate and rhythm; no gallop, rub audible. Abdomen: Soft, obese, NTTP, mildly hyperactive BS, no appreciated distention or HSM. Extremities: No cyanosis, no clubbing, no marked peripheral edema. Neurological: Patient awake, alert, oriented as noted, cognitive function intact; pupils equally reactive to light and accommodation, cranial nerves grossly normal, moving all 4 extremities, no focal deficits, strength improving, moderately global decreased secondary to recent interventions. Psychiatric: Affect appears normal, interactive and talkative, no acute evidence of depressive or anxiety feelings. Assessment & Plan Assessment/Plan (1) Back pain: QUALIFIERS: Back pain laterality: left Back pain location: low back pain Chronicity: acute Sciatica laterality: sciatica of left side Sciatica presence: with sciatica Qualified Code(s): M54.42 - Lumbago with sciatica, left side (2) Lumbar spondylosis: PLAN: Plan The patient is an 83 y/o M w/ PMHx: Obesity, GERD, NAFLD, GERD w/ Hx GI bleed, Chronic anemia/Fe deficiency anemia, HTN, HLD, Diabetes mellitus type II, Chronic back pain w/ lumbar stenosis who presents to the [facility] on 06/15/24 secondary to ongoing debility for planned T9-10 partial bilateral laminectomy, dorsal column stimulator paddle lead placement, subcutaneous placement dorsal column stimulator generator per Dr. Mendoza. #1. Chronic back pain with lumbar stenosis, spondylosis: Patient has failed previous interventions and therapies, admitted per Dr. Mendoza status post T9-10 partial bilateral laminectomy, dorsal column stimulator paddle lead placement, subcutaneous placement dorsal column stimulator generator, post-operative pain management per primary service discretion, bowel regimen, DVT Prophylaxis, PT/OT/CM per Orthopedic surgery discretion. #2. Diabetes mellitus type II: Hold oral home regimen, once appropriate would advance to ADA diet, accu checks w/ ISS. #3. Chronic anemia/iron deficiency anemia: Most recent labs noted with hemoglobin 13.2, MCV 101.5 and from prior seems macrocytic as well, encourage continued outpatient follow-up and assessment, noted plan for a.m. labs per primary service. #4. Hypertension: Continue home regimen including valsartan, hydrochlorothiazide, PRN hydralazine. #5. Hyperlipidemia: We will get an patient on statin therapy. #6. GERD with history of GI bleed: We will continue patient home PPI. #7. NAFLD: Noted in chart history, would encourage continued lifestyle and diet changes, encourage continued outpatient follow-up with gastroenterology as previously arranged. #8. Obesity: Weight loss and lifestyle changes encouraged. #9. DVT prophylaxis: Would encourage SCDs, defer chemoprophylaxis to orthopedic surgery given recent OR. Charges/Coding Visit Charges Inpatient E&M: 43662 Subs Hosp L3
[2024-06-15] MEDS: Cefazolin 1 GM/50 ML BAG IV ×2 (14:17→23:01)
[2024-06-15] MEDS: 0.9% Saline Lock 10 ML Syringe IV (14:17)
[2024-06-15] MEDS: Acetaminophen 500 MG Tablet 1000 MG PO ×2 (14:17→21:59)
[2024-06-15] MEDS: metFORMIN HCl 500 MG Tablet PO (17:17)
[2024-06-15] MEDS: Omega-3 Acid Ethyl Esters 1 GM Capsule PO (21:55)
[2024-06-15] MEDS: Atorvastatin Calcium 20 MG Tablet PO (21:55)
[2024-06-15] MEDS: Allopurinol 100 MG Tablet PO (21:55)
[2024-06-15] MEDS: hydroCHLOROthiazide 25 MG Tablet PO (21:55)
[2024-06-16 02:04] VITALS: BP 136/62; PULSE 75; RESP 15; TEMP 36.7; O2SAT 95
[2024-06-16] MEDS: Acetaminophen 500 MG Tablet 1000 MG PO (04:54)
[2024-06-16 05:04] VITALS: BP 118/57; PULSE 72; RESP 16; TEMP 36.3; O2SAT 97
[2024-06-16 06:00] VITALS: PULSE 57
[2024-06-16] MEDS: Omega-3 Acid Ethyl Esters 1 GM Capsule PO (08:09)
[2024-06-16] MEDS: Pantoprazole Sodium 20 MG Tablet PO (08:09)
[2024-06-16] MEDS: Multivitamins,Therapeutic Tablet 1 TABLET PO (08:09)
[2024-06-16] MEDS: Allopurinol 100 MG Tablet PO (08:09)
[2024-06-16] MEDS: metFORMIN HCl 500 MG Tablet PO (08:09)
[2024-06-16] MEDS: Cyanocobalamin 500 MCG Tablet 1000 MCG PO (08:09)
[2024-06-16] MEDS: Cholecalciferol (Vit D3) 125 MCG CAPSULE (5,000 UNITS) PO (08:09)
[2024-06-16] MEDS: Multivitamin (Healthy Eyes) Capsule 2 CAP PO (08:10)
[2024-06-16 08:19] VITALS: BP 135/67; PULSE 60; RESP 18; TEMP 36.6; O2SAT 98
[2024-06-16 08:20] VITALS: PULSE 60
--- NOTE | 2024-06-16 10:00 | CASEMGMT ---
RENITA CARBONE Assessment Face to Face with patient for initial transition planning/care coordination assessment. RENITA CARBONE introduced self and role at [facility], pt voices understanding. Pt is A&Ox4 and is resting comfortably in bed and is calm. Care providers, pharmacy, and demographics verified. Admitting dx: Lumbar Spondylosis PCP: Anderson Izaguirre Specialists: Emily (Neuro), Friend (GI), Kelly (Ortho), Enriquez (Endo) Preferred Pharmacy: [facility] Insurance: [facility] A/B, AARP Prescription Benefit: Yes LNOK: Stephanie Graham (W), Deric Graham (Son) Living Arrangements: Pt lives with his in a single story home with two steps to enter ADLs/IADLs: Ind Transportation: Self, DME: Tub bench, Raised TS, Grab bars, FWW HHC/SNF: Denies history or needs Pt?s goal: Home Plan: Home no needs with pt . 6-Click is 21. Pt states that he did well with therapy (There is no note in currently). Pt states that he has all the DME that he needs and refuses HHC, OP Tx, or SNF. Pt states that he feels safe and comfortable discharging home today with his and denies further questions or concerns. Nadia Flowers RN, CM
--- NOTE | 2024-06-16 10:37 | PN_ITS ---
Subjective Subjective Patient seen and examined. He had no active complaints and feels very well. Pain is well controlled. Review of systems is otherwise negative. Objective Data Objective Data Vital Signs: Vital Signs Temp Pulse Resp BP Pulse Ox O2 Del Method O2 Flow Rate 98 F 60 18 135/67 H 98 Room Air 2 06/16/24 08:19 06/16/24 08:20 06/16/24 08:19 06/16/24 08:19 06/16/24 08:19 06/16/24 08:20 06/15/24 10:20 Oxygen Flow Rate (L/min) 2 Oxygen Delivery Method Room Air Weight: 220 lb Body Mass Index (BMI) 33.4 Intake & Output: Intake and Output for Last 24 Hours 06/14/24 06/15/24 06/16/24 23:59 23:59 23:59 Intake Total 1323.75 / 1623.75 300 / 300 Balance 1323.75 / 1623.75 300 / 300 Physical Exam Const alert, oriented x3, no apparent distress and well nourished General Appearance: cooperative and well developed HEENT normocephalic, head/scalp atraumatic, moist oral mucous membranes and oropharynx normal Eyes PERRL and EOMs intact bilaterally Neck no lymphadenopathy, supple and no JVD Lymph Lymphatic: no lymphadenopathy noted and no lymphedema noted Resp normal respiratory effort, normal air movement and clear to auscultation bilaterally Cardio regular rate, regular rhythm, S1 normal heart sound, S2 normal heart sound and no murmurs GI normal to inspection, nondistended, normoactive bowel sounds, soft to palpation, non-tender and non-distended Extremity normal capillary refill, no clubbing, cyanosis or edema and no calf tenderness General Extremity: no tenderness to palpation of joints or extremities Skin Skin Narrative: intact dressing over upper back Neuro CN's II-XII intact bilaterally, no focal motor deficits, no sensory deficits noted and deep tendon reflexes 2+ bilaterally Motor Exam: strength 5/5 throughout and general weakness Psych thought process normal, cooperative and affect normal Appearance: appropriate Assessment & Plan Assessment/Plan (1) Lumbar spondylosis: (2) Back pain: QUALIFIERS: Back pain location: low back pain Chronicity: acute Back pain laterality: left Sciatica presence: with sciatica Sciatica lat erality: sciatica of left side Qualified Code(s): M54.42 - Lumbago with sciatica, left side PLAN: Plan #Spondylosis * s/p partial bilateral laminectomy and dorsal column stimulator with paddle lead placement and subcutaneous placement of dorsal column stiumlator * pain is well controlled * management as per spine surgery * PT/OT on board * #Type 2 diabetes mellitus * ISS. Accuchecks ACHS * on metformin * #Hypertension: on valsartan and HCTZ. IV hydralazine prn #Hyperlipidemia: on statin #GERD: on PPI #Non alcoholic fatty liver disease: stable. To follow up with gastroenterology on outpatient basis. #DVT prophylaxis; SCDs. As per primary service. # Charges/Coding Visit Charges Inpatient E&M: 57396 Subs Hosp L2
--- NOTE | 2024-06-16 10:58 | PHA.DC.MC.R ---
Pharmacy [facility] Pharmacy Service has performed discharge medication reconciliation and counseling for this patient. The patient's discharge medication list was reviewed for discrepancies and discrepancies were resolved. The patient was counseled on the following discharge medications and changes in medications for homegoing were reviewed. 1. NORCO The Reason for Use, instructions for use, and potential side effects were reviewed for all new medications. The patient's questions regarding all of their medications were answered. The patient was able to verbally demonstrate an understanding of their discharge medications. The patient was counselled by Waldemar Ashley PharmD Candidate Medications at Discharge Home Medications cyanocobalamin (vitamin B-12) 1,000 mcg tablet (Vitamin B-12) 1,000 mcg PO QDAY 06/08/18 multivitamin 1 tab PO QDAY 06/08/18 omeprazole 20 mg capsule,delayed release 20 mg PO QDAY 06/08/18 simvastatin 40 mg tablet 40 mg PO QPM 06/08/18 valsartan 320 mg-hydrochlorothiazide 25 mg tablet (Diovan HCT) 1 tab PO QHS 06/08/18 allopurinol 100 mg tablet 100 mg PO BID 06/13/18 omega-3 acid ethyl esters 1 gram capsule (Lovaza) 1 cap PO BID 09/11/19 vit C 250 mg-vit E 90 mg-zinc 40 mg-copper 1 bj-alidpk-enemcw capsule (PreserVision AREDS-2) 2 tab PO DAILY 09/23/20 sildenafil (pulm.hypertension) 20 mg tablet 20 mg PO Q24H PRN sexual activity 09/29/21 metformin 500 mg tablet 500 mg PO BID 90 days #180 tabs 03/27/24 cholecalciferol (vitamin D3) 125 mcg (5,000 unit) tablet (Vitamin D3) 125 mcg PO DAILY 06/01/24 hydrocodone-acetaminophen 5-325mg 5mg-325mg 1 tab PO Q6H 7 days #28 tabs 06/15/24 hydrocodone-acetaminophen 5-325mg 5mg-325mg 1 tab PO Q6H 7 days #28 tabs 06/15/24
== END 2024-06-16 10:41 | disposition home or self-care (01) ==
LOC: SDC 11:58 → MS3 11:58
PROVIDERS: Admitting Provider Orthopaedic Surgery; PCP Family Medicine; Referring Provider Orthopaedic Surgery; Visit Provider Orthopaedic Surgery
PROC: (CPT 63655; principal; 2024-06-15 07:00)
DX: Z45.42 Encounter for adjustment and management of neurostimulator (principal); E11.9 Type 2 diabetes mellitus without complications; M48.061 Spinal stenosis, lumbar region without neurogenic claudication; G89.29 Other chronic pain; M54.42 Lumbago with sciatica, left side; M47.816 Spondylosis without myelopathy or radiculopathy, lumbar region; Z79.899 Other long term (current) drug therapy; I10 Essential (primary) hypertension; E78.00 Pure hypercholesterolemia, unspecified; K75.81 Nonalcoholic steatohepatitis (NASH); E66.9 Obesity, unspecified; K21.9 Gastro-esophageal reflux disease without esophagitis; Z79.84 Long term (current) use of oral hypoglycemic drugs; M10.9 Gout, unspecified; M51.16 Intervertebral disc disorders with radiculopathy, lumbar region; Z68.33 Body mass index [BMI] 33.0-33.9, adult; M47.26 Other spondylosis with radiculopathy, lumbar region; Z79.82 Long term (current) use of aspirin
CPT/HCPCS: 63685; 63655; 00300; 72020; 76000; 96365; 96366; 97161; 99221; C1713; C1778; C1820; J7120; A4216; G0378; J2405

== ENCOUNTER → 2024-09-27 | Outpatient (CLI) | payer MEDICARE, OTHER, SELFPAY | END | disposition home or self-care (01) | LOC: US 07:08 | PROVIDERS: PCP Family Medicine; Referring Provider Internal Medicine; Visit Provider Internal Medicine | DX: K75.81 Nonalcoholic steatohepatitis (NASH) (principal) | CPT/HCPCS: 76705; 76981 ==

== ENCOUNTER → 2025-02-10 | Outpatient (CLI) | payer MEDICARE, OTHER, SELFPAY ==
--- NOTE | 2025-02-10 07:27 | MRI_ITS ---
PROCEDURE: SPINE LUMBAR (ROUTINE) 02/10/2025 REASON FOR EXAM: 84-year-old male, history of spondylolisthesis, low back pain, right-sided difficulty with walking. TECHNIQUE: Multiplaner MRI of the lumbar spine performed without contrast. Multiple pulse sequences were obtained. COMPARISON: MRI L-spine 06/21/2023. FINDINGS: Vertebrae: Mild chronic L2 and L5 vertebral body height loss. Alignment: Grade 1 retrolisthesis of L2 onto L3, grade 1 anterolisthesis of L4 onto L5, and grade 1 anterolisthesis of L5 onto S1. Conus Medullaris: Terminates of the L2 vertebral body. L1-2: Mild disk space narrowing without significant central stenosis. Mild bilateral neural foraminal stenosis. L2-3: Severe degenerative disc disease. Disk bulging, ligamentum flavum hypertrophy and facet hypertrophy cause severe central canal and severe right and moderate left neural foraminal stenosis. L3-4: Severe degenerative disc disease. Disk bulging, ligamentum flavum hypertrophy and facet hypertrophy cause severe central canal and severe bilateral neural foraminal stenosis. L4-5: Mild degenerative disc disease, in combination with listhesis, ligamentum flavum hypertrophy and facet hypertrophy resulting in severe central canal and severe bilateral neural foraminal stenosis. L5-S1: Severe degenerative disc disease. Disk bulging, ligamentum flavum hypertrophy and facet hypertrophy cause severe central canal and moderate bilateral neural foraminal stenosis. Sacrum: The SI joints are grossly unremarkable. Partially visualized neural stimulator battery pack within the left posterior soft tissues. Partially visualized horseshoe kidney. MRI/Spine Lumbar (Routine) IMPRESSION: Severe multilevel central and neural foraminal stenosis as described. Stable l umbar listhesis as described. Reading Location: [facility]
== END | disposition home or self-care (01) ==
LOC: MRI 07:06
PROVIDERS: PCP Family Medicine; Referring Provider Orthopaedic Surgery Orthopaedic Surgery of the Spine; Visit Provider Orthopaedic Surgery Orthopaedic Surgery of the Spine
DX: M43.16 Spondylolisthesis, lumbar region (principal)
CPT/HCPCS: 72148

== ENCOUNTER → 2025-10-26 | Outpatient (CLI) | payer MEDICARE, OTHER, SELFPAY ==
--- NOTE | 2025-10-26 07:17 | US_ITS ---
PROCEDURE: ABD LIMITED W/ ELASTOGRAPHY REASON FOR EXAM: LIVER FIBROSIS COMPARISON: September 27, 2024. TECHNIQUE: Procedure Code: [id number] Modality: US Procedure: ABD LIMITED W/ ELASTOGRAPHY Right upper quadrant abdominal ultrasound. [facility]ma ElastQ Imaging shear wave elastography for non-invasive assessment of liver tissue stiffness. Isma EPIQ Elite. FINDINGS: LIVER: Size: Unremarkable Length: 15.6 cm Echotexture: Diffusely echogenic suggesting fatty infiltration Contour: Normal Lesions: None identified Elastography: EQI Med: 6.3 kPa EQI Med Luis: 1.45 m/s IQR/Med: 9.4 %* GALLBLADDER: No stones sludge wall thickening or tenderness. COMMON BILE DUCT: Normal measuring 4.6 mm . PANCREAS: Obscured by bowel gas. Visualized portions of the right kidney are unremarkable. No right upper quadrant ascites. Spleen: Spleen measures 11.4 cm 4 cm 3.8 cm. Small accessory spleen. US/ABD Limited w/ Elastography IMPRESSION: [id number] hepatic fibrosis. Horseshoe kidney. Reference Values: SRU <1.37 m/s (5.7kPa): No to mild fibrosis 1.37 m/s - 2.2 m/s: Moderate to severe fibrosis >2.2 m/s (15kPa): Significant fibrosis / cirrhosis METAVIR Score F2 or higher: 1.34 m/s (5.7kPa) F3 or higher: 1.55 m/s (7.3kPa) F4: 1.80 m/s (10kPa) * If the IQR/Med is >30%, the variance in the measurements is a large and the a ccuracy of the measurement may be in question. Reading Location: [place] [address]
--- OUTSIDE RECORDS SUMMARY | 2025-10-26 07:17 | XMS RPT_ITS | CCD ---
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 Radha Merino Primary Care Provider Dr. Radha Merino Referring Provider Jose Francisco SANDOVAL, PA Alphonso Attending Provider Dr. Melissa Hussein Referring Provider Dr. Patrick Zuniga Attending Provider Dr. Radha Diaz Attending Provider Radha Merino MD Primary Care Provider Dr. Radha Merino Primary Care Provider Dr. Radha Merino Referring Provider Dr. Portillo Buck Attending Provider Radha Merino MD Primary Care Provider Motel Front Desk ClerkSharon Unavailable Portillo Buck DO Unavailable Yumiko Hernandez MD Unavailable Patrick Zuniga Unavailable Radha Merino MD Primary Care Provider Patrick Zuniga MD Unavailable RADHA MERINO Primary Care Unavailab le UNWALA, YUMIKO Kent Referring Unavailable Dr. Radha Merino Primary Care Provider Dr. Shayne Elder Emergency Provider Koram, Dr. Masha Biggs Admit Provider Koram, Dr. Masha Biggs Other Provider Friend, Dr. Nath Attending Provider Koram, Dr. Masha Biggs Attending Provider Dr. Chelle Alcala Attending Provider Karlo RN, Kika Unavailable Unavailable Karlo RN, Kika Unavailable Unavailable Angelique GUERRA, Radha Bolanos Primary Care Provider Koram, Dr. Masha Biggs Referring Provider Dr. Radha Merino Referring Provider Dr. Faisal Keenan Attending Provider Dr. Radha Diaz Attending Provider Angelique GUERRA, Dr. Barron Primary Care Provider Dr. Radha Merino MD Referring Provider Dr. Luis Nguyễn MD Attending Provider Dr. Patrick Zuniga MD Attending Provider Shlomo GUERRA, Dr. Malone Attending Provider Dr. Luis Nguyễn MD Referring Provider Dr. Radha Merino MD Primary Care Provider Dr. Radha Merino MD Referring Provider Dr. Radha Diaz MD Attending Provider RADHA MERINO Attending Unavailab le ANGELIQUERADHA Primary Care Unavailab le ANGELIQUERADHA Attending Unavailab le ANGELIQUE, RADHA BOLANOS Primary Care Unavailab le ANGELIQUE, RADHA BOLANOS Referring Unavailab le ANGELIQUE, RADHA SCHREIBERORY Primary Care Unavailab le ANGELIQUE, RADHA SCHREIBERORY Referring Unavailab le ANGELIQUE, RADHA SCHREIBERORY Primary Care Unavailab le ANGELIQUE, RADHA LUIS MIGUEL Primary Care Unavailab le ANGELIQUE, RADHA LUIS MIGUEL Referring Unavailab le Shlomo, Faisal Attending Unavailable Shlomo, Faisal Referring Unavailable Angelique, Radha Primary Care Unavailable Shlomo, Faisal Attending Unavailable Angelique, Radha Referring Unavailable Angelique, Radha Primary Care Unavailable Angelique, Radha Referring Unavailable Angelique, Radha Primary Care Unavailable Luis Nguyễn Attending Unavailable Angelique, Radha Referring Unavailable Angelique, Radha Primary Care Unavailable Baddonader, Radha Attending Unavailable Angelique, Radha Referring Unavailable Shlomo, Faisal Attending Unavailable Angelique, Radha Primary Care Unavailable Angelique, Radha Primary Care Unavailable Shlomo, Faisal Attending Unavailable Angelique, Radha Referring Unavailable Angelique, Radha Referring Unavailable Angelique, Radha Primary Care Unavailable Luis Nguyễn Attending Unavailable Angelique, Radha Primary Care Unavailable Nadia, Patrick Attending Unavailable Gopi, Luis Referring Unavailable Angelique, Radha Primary Care Unavailable Luis Nguyễn Attending Unavailable Allergies Allergy Classification Reported Allergen(s) Allergy Type Date of Onset Reaction(s) Facility (5 sources) amLODIPine drug allergy 05-12-2016 ankle edema [facility] Work Phone: (4 sources) amLODIPine Drug Allergy 05-12-2016 Other: See Comments [facility] Medications Current Medications Medication Drug Class(es) Dates Sig (Normalized) Sig (Original) allopurinol 100 mg oral tablet (20 sources) Xanthine Oxidase Inhibitor Start: 08-02-2022 End: 08-06-2025 take 2 tablets by mouth once daily allopurinol (ZYLOPRIM) 100 mg tablet Take 2 tablets by mouth once daily. 180 tablet 3 08/06/2025 Active Start: 06-13-2018 End: 08-02-2022 take 1 tablet by mouth twice daily Allopurinol 100 mg tablet Active 100 mg PO TWICE A DAY June 13, 2018 12:00am Start: 06-13-2018 take 200 mg by mouth once benjamin y Allopurinol Active 200 MG PO daily June 12, 2018 11:00pm Start: 06-08-2018 End: 06-13-2018 take 1 tablet by mouth once daily Allopurinol 100 mg tablet Discontinued 100 mg PO daily June 08, 2018 12:00am June 13, 2018 1:03pm Start: 06-08-2017 take 1 tablet by [facility] once daily ALLOPURINOL 100 MG TABS One tablet by mouth daily ALLOPURINOL [id number] Karsten Javier NP Comment on above: TAKE 2 TABLETS BY [facility] ONCE DAILY DIRECTED Take 2 tablets by [facility] once daily. cholecalciferol 0.125 mg oral tablet (2 sources) Vitamin D Start: 024 take 1 tablet by mouth once daily Cholecalciferol (Vitamin D3) (Vitamin D3) 125 mcg (5,000 unit) tablet Active 125 ug PO DAILY June 01, 2024 12:00am DULoxetine 30 mg delayed release oral capsule (20 sources) Serotonin and Norepinephrine Reuptake Inhibitor Start: 025 End: 025 take 1 capsule by mouth once daily DULoxetine DR (CYMBALTA) 30 mg capsule Take 1 capsule by mouth once daily. 90 capsule 3 08/06/2025 Active Start: 03-28-2020 End: 04-04-2020 take 1 capsule by mouth at bedtime Duloxetine 30 mg capsule,delayed release(DR/EC) Discontinued 30 mg PO AT BEDTIME 7 7 0 March 28, 2020 12:00am April 03, 2020 12:00am April 04, 2020 12:02am Start: 03-28-2020 End: 05-30-2020 take 1 capsule by mouth once daily at bedtime Duloxetine 60 mg capsule,delayed release(DR/EC) Discontinued 60 mg PO AT BEDTIME 30 2 March 28, 2020 12:00am May 30, 2020 1:02pm begin after completing duloxetine 30mg one capsule nightly for one week fenofibrate 48 mg oral tablet (4 sources) Peroxisome Proliferator Receptor alpha Agonist Start: 01-31-2025 End: 08-06-2025 take 1 tablet by mouth once daily fenofibrate nanocrystallized (TRICOR) 48 mg tablet Take 1 tablet by mouth once daily. 90 tablet 3 08/06/2025 Active hydroCHLOROthiazide 25 mg / valsartan 320 mg oral tablet (20 sources) Thiazide Diuretic, Angiotensin 2 Receptor Janice Start: 12-06-2023 End: 08-06-2025 take 1 tablet by mouth once daily Valsartan-hydroCHLOR Othiazide 320-25 mg per tablet Take 1 tablet by mouth once daily. 90 tablet 3 08/06/2025 Active Start: 06-08-2018 Valsartan-Hydr ochlorothiazide (Diovan Hct) 320-25 mg tablet Active 1 {tbl} PO AT BEDTIME June 08, 2018 12:00am Start: 03-04-2015 End: 12-07-2022 take 1 tablet by mouth once daily Valsartan-hydroCHLOROthiazide 320-25 mg per tablet TAKE 1 TABLET BY MOUTH ONCE DAILY 90 tablet 3 12/06/2023 Active Start: 03-04-2015 take 1 tablet by rajni th once daily DIOVAN HCT 320-25 MG TABS One tablet by mouth daily VALSARTAN-HYDROCHLOROTHIAZIDE [id number] Amari Forman MD Comment on above: Take 1 tablet by rajni th once daily. TAKE 1 TABLET BY RAJNI TH ONCE DAILY DIRECTED TAKE 1 TABLET BY RAJNI TH ONCE DAILY iv contrast (will be provided with radiology test) (2 sources) Start: End: iv contrast (will be provided with radiology test) CT adrenal WO/W Inject, intravenously, once for 1 dose.No IV access, insert saline lock prior to the beginning of sedation, infusion, injection of imaging exam. Discontinue saline lock post exam. If Pt. has a central line or IVAD, may access for administration according to line specific nursing protocol. Once exam is complete flush line and de-access according to line specific nursing protocol in the CT contrast administration guidelines link. 1 Each 0 06/22/2024 06/23/2024 Active Multivitamin preparation (20 sources) Start: 8 take 1 tablet by mouth once daily Multivitamin Active 1 TABLET PO daily June 08, 2018 8:19am Start: 06-08-2018 take 1 tablet by rajni th once daily Multivitamin Active 1 TABLET PO daily June 08, 2018 12:00am Start: 06-08-2018 take 1 tablet by rajni th once daily Multivitamin Active 1 TABLET PO daily June 07, 2018 11:00pm Start: 08-21-2013 End: 03-15-2023 multivitamin (MULTIPLE VITAM IN ORAL) Take by mouth. 0 08/21/2013 03/15/2023 Discontinued Start: 08-21-2013 multivitamin ( MULTIPLE VITAMIN ORAL) Take by mouth. 0 08/21/2013 Active Comment on above: Take by mouth. MULTIVITAMIN TAB (20 sources) Start: 5 MULTIVITAMIN TAB Take one(1) tablet daily. 0 09/07/2005 Active Comment on above: Take one(1) tablet d aily. Multivitamin tablet (2 sources) Start: 8 Multivitamin tablet Active 1 {tbl} PO daily June 08, 2018 12:00am omeprazole 20 mg delayed release oral capsule (20 sources) Proton Pump Inhibitor Start: 2 take 1 tablet by mouth once daily OMEPRAZOLE 40 MG CPDR One tablet by mouth daily OMEPRAZOLE [id number] Aries Lang MD Start: 04-23-2011 End: 08-06-2025 take 1 capsule by mouth once daily omeprazole (PRILOSEC) 20 mg capsule Take 1 capsule by mouth once daily. 90 capsule 3 08/06/2025 Active Comment on above: Take 20 mg by mouth once daily. [facility] 1 [facility] resmetirom (REZDIFFRA) 100 mg tablet (5 sources) take 1 tablet by mouth once daily resmetirom (REZDIFFRA) 100 mg tablet Take 100 mg by mouth once daily. Active Resmetirom (Rezdiffra) 100 mg tablet (2 sources) Start: 10-09-2024 take 1 tablet by mouth once daily Resmetirom (Rezdiffra) 100 mg tablet Active 100 mg PO daily October 09, 2024 1:00am Start: 10-09-2024 take 1 tablet by rajni once daily Resmetirom (Rezdiffra) 100 mg tablet Active 100 mg PO daily October 09, 2024 1:00am sildenafil 20 mg oral tablet (20 sources) Phosphodiesterase 5 Inhibitor Start: 04-13-2018 End: 01-29-2025 sildenafil (REVATIO) 20 mg tablet Take 1 tablet by mouth as needed. 2 tablets 1 hour before sexual activity 40 tablet 5 01/29/2025 Active Comment on above: Take 1 tablet by rajni as needed. 2 tablets 1 hour before sexual activity Take by mouth. vit A/vit C/vit E/zinc/copper (ICAPS AREDS ORAL) (20 sources) Start: 08-17-2018 vit A/vit C/vi t E/zinc/copper (ICAPS AREDS ORAL) Take by mouth. Preservation 08/17/2018 Active Start: 08-17-2018 vit A/vit C/vi t E/zinc/copper (ICAPS AREDS ORAL) Take by mouth. Preservation 0 08/17/2018 Active Start: 08-17-2018 vit A/vit C/vi t E/zinc/copper (ICAPS AREDS ORAL) Take by mouth. 0 08/17/2018 Active Comment on above: Take by mouth. Take by mouth. Prese rvation Vit C,Y-Kd-Izhwe-Lute in-Zeaxan (Preservision Areds-2) 469-148-07-1 pc-phwc-sd-mg capsule (14 sources) Start: 09-23-2020 take 1 capsule by mouth once daily at mealtime Vit C,K-Rc-Okksa-Lutein -Zeaxan (Preservision Areds-2) [phone] if-ehwq-fh-mg capsule Active 2 TABLET PO DAILY September 23, 2020 2:12pm administer with meals Start: 09-23-2020 take 1 capsule by [facility] once daily at mealtime Vit C,I-Yi-Zforr-Lutein-Zeaxan (Preservision Areds-2) [phone] ou-mypw-pe-mg capsule Active 2 {tbl} PO DAILY September 23, 2020 1:00am administer with meals Start: 09-23-2020 take 1 capsule by mo ut once daily at mealtime Vit C,R-Cy-Hmqvl-Lutein-Zeaxan (Preservision Areds-2) [phone] rm-hfwd-ds-mg capsule Active 2 TABLET PO DAILY September 23, 2020 1:00am administer with meals Start: 09-23-2020 take 1 capsule [facility] once daily at mealtime Vit C,U-Cn-Tthce-Lutein-Zeaxan (Preservision Areds-2) 308-385-40-1 ji-jiyd-bf-mg capsule Active 2 TABLET PO DAILY September 23, 2020 12:00am administer with meals vitamin b12 1 mg oral tablet (20 sources) Vitamin B12 Start: 03-04-2015 End: 12-04-2022 take 1 tablet by mouth once daily Cyanocobalamin (Vitamin B-12) (Vitamin B-12) 1,000 mcg tablet Active 1000 ug PO daily June 08, 2018 12:00am take 1 tablet by mouth once benjamin y cyanocobalamin (VITAMIN B-12) 100 mcg tab Take 100 mcg by mouth once daily. Active Comment on above: Take by mouth. Take 100 mcg by mout h once daily. 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, lumbar region aliskiren / valsartan (5 sources) Angiotensin 2 Receptor Janice, Renin Inhibitor Start: 04-23-2011 take 1 tablet by mouth once daily VALTURNA 300-320 MG TABS One tablet by mouth daily ALISKIREN-VALSARTA N [id number] Debbieciarra Retana amitriptyline hydrochloride 25 mg oral tablet (20 sources) Tricyclic Antidepressant Start: 09-01-2021 End: 03-30-2024 take 1 tablet by mouth at bedtime as needed Amitriptyline 25 mg tablet Discontinued 25 mg PO AT BEDTIME NEEDED February 08, 2024 12:00am March 30, 2024 8:58am sleep Start: 07-01-2021 End: 09-01-2021 take 2 tablets by mouth at bedtime Amitriptyline 25 mg tablet Discontinued 50 mg PO AT BEDTIME 60 3 July 01, 2021 12:00am September 01, 2021 1:18pm Start: 07-01-2021 End: 09-01-2021 take 50 mg by mouth at bedtime Amitriptyline Discontin ued 50 MG PO AT BEDTIME 60 July 01, 2021 12:00am September 01, 2021 1:18pm Start: 03-17-2021 End: 04-29-2021 take 1 tablet by mouth at bedtime Amitriptyline 25 mg tablet Discontinued 25 mg PO AT BEDTIME 30 March 17, 2021 12:00am April 29, 2021 3:15pm Start: 12-17-2020 End: 03-17-2021 take 1 tablet by mouth at bedtime Amitriptyline 10 mg tablet Discontinued 10 mg PO AT BEDTIME 30 December 17, 2020 1:00am March 17, 2021 5:44pm Comment on above: TAKE 1 TABLET BY RAJNI TH AT NIGHT DIRECTED Take 25 mg by mouth daily at bedtime. amLODIPine 5 mg oral tablet (10 sources) Dihydropyridine Calcium Channel Janice Start: 5 End: 6 take 1 tablet by mouth once daily AMLODIPINE BESYLATE 5 MG TABS One tablet by mouth daily AMLODIPINE BESYLATE [id number] Amari Forman MD amLODIPine 5 mg / valsartan 320 mg oral tablet (10 sources) Dihydropyridine Calcium Channel Janice, Angiotensin 2 Receptor Janice Start: 3 End: 5 take 1 tablet by mouth once daily EXFORGE 5-320 MG TABS One tablet by mouth daily AMLODIPINE BESYLATE-VALSARTAN [id number] Amari Forman MD Start: 08-21-2013 End: 03-04-2015 take 1 tablet by mouth once daily EXFORGE 5-320 MG TABS One tablet by mouth daily AMLODIPINE BESYLATE-VALSARTAN [id number] Amari Forman MD Start: 08-21-2013 take 1 tablet by rajni th once daily EXFORGE 5-320 MG TABS One tablet by mouth daily AMLODIPINE BESYLATE-VALSARTAN [id number] Amari Forman MD amoxicillin 500 mg oral capsule (5 sources) Penicillin-class Antibacterial Start: 12-04-2022 End: 03-15-2023 take 1 capsule by mouth three times daily amoxicillin (POLYMOX, AMOXIL) 500 mg capsule Take 500 mg by mouth three times daily. 0 12/04/2022 03/15/2023 Discontinued Comment on above: Take 500 mg by mouth three times daily. aspirin 81 mg delayed release oral tablet (20 sources) Nonsteroidal Anti-inflammatory Drug Start: 03-09-2019 End: 02-12-2024 take 1 tablet by mouth once daily Aspirin (Adult Aspirin Regimen) 81 mg tablet,delayed release (DR/EC) Discontinued 81 mg PO DAILY March 09, 2019 11:49am February 12, 2024 2:45pm Start: 06-08-2018 End: 03-09-2019 take 2 tablets by mouth once daily Aspirin (Adult Aspirin Regimen) 81 mg tablet,delayed release (DR/EC) Discontinued 81 mg PO .COMPLEX June 08, 2018 12:00am March 09, 2019 11:50am 81 mg PO two tablets by mouth daily Start: 04-23-2011 take 2 tablets by mo uth once daily ASPIRIN 81 MG TABS Two tablets by mouth daily ASPIRIN [id number] Debbie Retana Start: 04-23-2011 take 2 tablets by mo uth once daily ASPIRIN 81 MG TABS Two tablets by mouth daily ASPIRIN [id number] Debbie Sherrill Retana Start: 04-23-2011 take 2 tablets by mo uth once daily ASPIRIN EC 81 MG TBEC Two tablets by mouth daily ASPIRIN [id number] Kimmy Israel RN Start: 09-07-2005 End: 03-15-2023 take 1 tablet by mouth once daily ASPIRIN 81 MG TAB Take 81 mg by mouth once daily. 0 09/07/2005 Active Comment on above: Take one (1) tablet daily . Take by mouth. Take 81 mg by mouth once daily. azithromycin 250 mg oral tablet (14 sources) Macrolide Antimicrobial Start: 05-23-2021 End: 06-10-2021 Azithromycin 250 mg tablet Discontinued 250 mg PO daily 12 0 May 23, 2021 12:00am June 10, 2021 9:00am 2 tablets today, then 1 tablet daily on days 2 through 11 B COMPLEX VITAMINS (3 sources) Start: 03-04-2015 B COMPLEX-B12 TABS 1000mcg daily B COMPLEX VITAMINS [id number] Amari Forman MD B COMPLEX VITAMINS (2 sources) Start: 03-04-2015 B COMPLEX-B12 TABS 1000mcg daily B COMPLEX VITAMINS [id number] Amari Forman MD Bilateral wrist splints (6 sources) Start: 09-23-2023 End: 02-08-2024 Bilateral wrist splints Discontinued 0 .ROUTE .MEDSUPPLY 2 0 September 23, 2023 12:00am February 08, 2024 12:19pm Carpal tunnel syndrome, bilateral upper limbs Carpal tunnel syndrome (ICD 10 G56.03) Right and left wrist splints to be worn at night Start: 09-23-2023 End: 02-08-2024 Bilateral wrist splints Disc ontinued 0 .ROUTE .MEDSUPPLY 2 September 23, 2023 12:00am February 08, 2024 12:19pm Right and left wrist splints to be worn at night Start: 09-23-2023 Bilateral wris t splints Active 0 .ROUTE .MEDSUPPLY 2 September 22, 2023 11:00pm Right and left wrist splints to be worn at night busPIRone hydrochloride 5 mg oral tablet (14 sources) Start: 12-17-2020 End: 03-17-2021 take 1 tablet by mouth twice daily as needed for anxiety Buspirone 5 mg tablet Discontinued 5 mg PO TWICE A DAY as needed for anxiety 60 2 December 17, 2020 1:00am March 17, 2021 5:43pm calcium carbonate 500 mg chewable tablet (17 sources) Start: 12-24-2023 End: 07-26-2024 take 500 mg by mouth every hour as needed calcium carbonate (TUMS) 500 mg chew Take 1 tablet by mouth every hour as needed (mouth or hand numbness or tingling). 12/24/2023 07/26/2024 Discontinued Comment on above: Take 1 tablet by rajni every hour as needed (mouth or hand numbness or tingling). calcium carbonate 1250 mg / cholecalciferol 200 unt oral tablet (20 sources) Vitamin D Start: 12-24-2023 End: 08-06-2025 take 1 tablet by mouth three times daily calcium-carbonate- vitamin D3 500 mg-5 mcg (200 unit) per tablet Take 1 tablet by mouth three times a day. 12/24/2023 08/06/2025 Discontinued Comment on above: Take 1 tablet by rajni th three times a day. chlorhexidine gluconate 1.2 mg/ml mouthwash (5 sources) Start: 12-04-2022 End: 03-15-2023 Chlorhexidine Gluconate (PERIDEX) 0.12 % solution Use 0.5 mL as instructed twice daily. 0 12/04/2022 03/15/2023 Discontinued Comment on above: Use 0.5 mL as instru cted twice daily. ciprofloxacin 500 mg oral tablet (9 sources) Quinolone Antimicrobial Start: 08-03-2023 End: 08-17-2023 take 1 tablet by mouth twice daily Ciprofloxacin Hcl 500 mg tablet Discontinued 500 mg PO TWICE A DAY 28 14 0 August 03, 2023 12:00am August 16, 2023 12:00am August 17, 2023 12:04am Start: 03-18-2023 End: 03-25-2023 take 1 tablet by mouth twice daily ciprofloxacin HCl (CIPRO) 500 mg tablet Take 1 tablet by mouth twice daily for 7 days. 14 tablet 0 03/18/2023 03/25/2023 Comment on above: Take 1 tablet by rajni th twice daily for 7 days. citric acid 128 mg/ml / sodium citrate 98 mg/ml oral solution (5 sources) Calculi Dissolution Agent, Anti-coagulant Start: End: take 30 mL by mouth three times daily at mealtime sodium citrate-citric acid (ORACIT) 490-640 mg/5 mL soln Take 30 mL by mouth three times a day with meals. 8100 mL 3 05/05/2024 06/22/2024 Discontinued (Cost of medication) cyclobenzaprine hydrochloride 10 mg oral tablet (20 sources) Muscle Relaxant Start: End: take 0.5 tablet by mouth at bedtime Cyclobenzaprine 10 mg tablet Discontinued 0 PO BEDTIME 06 05July 11, 2020 12:00am September 23, 2020 2:13pm one-half tablet PO bedtime Start: 07-11-2020 End: 09-23-2020 take 0.5 tablet by mouth at bedtime Cyclobenzaprine Discontinued 0 PO BEDTIME July 11, 2020 12:00am September 23, 2020 2:13pm one-half tablet PO bedtime Start: 05-30-2020 End: 07-11-2020 take 1 tablet by mouth at bedtime Cyclobenzaprine 10 mg tablet Discontinued 10 mg PO BEDTIME 30 2 May 30, 2020 12:00am July 11, 2020 9:13am dexamethasone 1 mg oral tablet (4 sources) Corticosteroid Start: 06-22-2024 End: 07-26-2024 dexAMETHasone (DECADRON) 1 mg tablet Take 1 tablet by mouth as directed. Take at 11PM the night before blood draw 1 tablet 06/22/2024 07/26/2024 Discontinued diclofenac sodium 75 mg delayed release oral tablet (20 sources) Nonsteroidal Anti-inflammatory Drug Start: 09-23-2023 End: 03-30-2024 take 1 tablet by mouth twice daily as needed for pain Diclofenac Sodium 75 mg tablet,delayed release (DR/EC) Discontinued 75 mg PO TWICE A DAY as needed for pain 180 2 September 23, 2023 12:00am March 30, 2024 8:58am Start: 09-15-2021 End: 09-15-2022 take 1 tablet by mouth twice daily as needed for pain Diclofenac Sodium 75 mg tablet,delayed release (DR/EC) Discontinued 75 mg PO TWICE A DAY as needed for pain 180 1 December 10, 2021 2:25pm September 15, 2022 11:08am Start: 07-01-2021 End: 09-01-2021 take 1 tablet by mouth twice daily as needed for pain Diclofenac Sodium 75 mg tablet,delayed release (DR/EC) Discontinued 75 mg PO TWICE A DAY as needed for pain July 01, 2021 12:00am September 01, 2021 1:18pm Start: 12-17-2020 End: 05-23-2021 take 1 tablet by mouth twice daily as needed for pain Diclofenac Sodium 75 mg tablet,delayed release (DR/EC) Discontinued 75 mg PO TWICE A DAY as needed for pain 60 1 April 29, 2021 3:15pm May 23, 2021 11:06am Start: 05-30-2020 End: 09-23-2020 take 0.5-1 tablets by mouth twice daily as needed for pain Diclofenac Sodium 75 mg tablet,delayed release (DR/EC) Discontinued 0 PO TWICE A DAY as needed for pain 60 5 July 11, 2020 12:00am September 23, 2020 2:13pm one-half to one tablet PO twice a day PRN ferrous sulfate 325 mg delayed release oral tablet (17 sources) Start: 02-12-2024 End: 07-26-2024 take 1 tablet by mouth every twelve hours ferrous sulfate 325 mg (65 mg iron) EC tablet Take 1 tablet by mouth every 12 hours. 02/12/2024 07/26/2024 Discontinued Start: 02-12-2024 End: 06-01-2024 take 1 tablet by mouth twice daily Ferrous Sulfate 325 mg (65 mg iron) tablet,delayed release (DR/EC) Discontinued 325 mg PO TWICE A DAY 60 2 February 12, 2024 12:00am June 01, 2024 1:49pm Comment on above: Take 1 tablet by rajni th every 12 hours. Fluad Quad [id number](65yr up)(PF) 60 mcg (15 mcg x 4)/0.5mL IM syringe (flu vac (2 sources) Start: 09-05-2021 End: 09-05-2021 Fluad Quad (65yr up)(PF) 60 mcg (15 mcg x 4)/0.5mL IM syringe (flu vac Discontinued 60 MCG IM ONCE 0.5 September 05, 2021 3:13pm September 05, 2021 3:29pm gabapentin 300 mg oral capsule (20 sources) Anti-epileptic Agent Start: 04-29-2021 End: 05-23-2021 take 1 capsule by mouth once daily, then take 1 capsule by mouth twice daily, then take 1 capsule by mouth three times daily Gabapentin 300 mg capsule Discontinued 300 mg PO .COMPLEX 69 0 April 29, 2021 12:00am May 23, 2021 11:06am 300 mg PO daily for one week then 300mg twice a day for one week then 300mg three times daily thereafter Start: 04-29-2021 End: 05-23-2021 take 1 capsule by mouth three times daily Gabapentin 300 mg capsule Discontinued 300 mg PO THREE TIMES A DAY 90 1 April 29, 2021 12:00am May 23, 2021 11:06am Start: 12-10-2020 End: 12-17-2020 take 1 capsule by mouth at bedtime Gabapentin 300 mg capsule Discontinued 300 mg PO AT BEDTIME December 10, 2020 1:00am December 17, 2020 2:29pm Start: 03-11-2020 End: 09-23-2020 take 1 capsule by mouth at bedtime Gabapentin 300 mg capsule Discontinued 300 mg PO AT BEDTIME March 11, 2020 12:00am September 23, 2020 2:13pm hydroCHLOROthiazide 25 mg oral tablet (10 sources) Thiazide Diuretic Start: 04-23-2011 End: 03-04-2015 take 1 tablet by mouth once daily HYDROCHLOROTHIAZIDE 25 MG TABS One tablet by mouth daily HYDROCHLOROTHIAZIDE [id number] Amari Forman MD hyoscyamine sulfate 0.125 mg oral tablet (6 sources) Start: 04-30-2022 End: 12-04-2022 take 1 tablet by mouth four times daily as needed for muscle spasms hyoscyamine (LEVSIN) 0.125 mg tablet TAKE 1 TABLET BY MOUTH FOUR TIMES DAILY NEEDED FOR SPASM 0 04/30/2022 12/04/2022 Discontinued Comment on above: TAKE 1 TABLET BY RAJNI TH FOUR TIMES DAILY NEEDED FOR SPASM ketorolac tromethamine 10 mg oral tablet (5 sources) Nonsteroidal Anti-inflammatory Drug, Cyclooxygenase Inhibitor Start: 04-21-2023 take 1 tablet by mouth every eight hours as needed keTORolac (TORADOL) 10 mg tablet Take 1 tablet by mouth every 8 hours as needed for pain. 10 tablet 0 04/21/2023 Active Comment on above: Take 1 tablet by rajni th every 8 hours as needed for pain. linaclotide 0.145 mg oral capsule (20 sources) Guanylate Cyclase-C Agonist Start: 02-05-2023 End: 09-28-2023 take 1 capsule by mouth once daily Linaclotide (Linzess) 145 mcg capsule Discontinued 145 ug PO DAILY February 05, 2023 12:00am September 28, 2023 10:01am Take 30minutes before first intake of the day. End: 06-07-2023 linaclotide (LINZESS ORAL) T cedric by mouth once daily. 0 06/07/2023 Discontinued linaclotide (TONY ZESS ORAL) Take by mouth once daily. 0 Active Comment on above: Take by mouth once d aily. TAKE 1 CAPSULE BY MO [facility] ONCE DAILY 30 MINUTES BEFORE FIRST INTAKE OF THE DAY Take by mouth. metFORMIN hydrochloride 500 mg oral tablet (20 sources) Biguanide Start: 03-27-20 End: 01-30-20 25 take 1 tablet by mouth twice daily Metformin 500 mg tablet Discontinued 500 mg PO TWICE A DAY 60 1 October 06, 2024 12:29pm January 11, 2025 2:22pm metroNIDAZOLE 500 mg oral tablet (6 sources) Nitroimidazole Antimicrobial Start: 08-03-20 End: 08-17-20 23 take 1 tablet by mouth twice daily Metronidazole 500 mg tablet Discontinued 500 mg PO TWICE A DAY 28 14 0 August 03, 2023 12:00am August 16, 2023 12:00am August 17, 2023 12:05am MULTIPLE VITAMIN (5 sources) Start: 08-21-20 13 take 1 tablet by mouth once daily MULTIVITAMINS TABS One tablet by mouth daily MULTIPLE VITAMIN Amari Forman MD niacin 500 mg extended release oral tablet (19 sources) Nicotinic Acid Start: 06-08-20 18 End: 06-13-20 18 take 2 tablets by mouth twice daily Niacin (Slo-Niacin) 500 mg tablet extended release Discontinued 500 mg PO .COMPLEX June 08, 2018 12:00am June 13, 2018 1:04pm 500 mg PO two tablets by mouth twice a day Start: 04-23-2011 take 2 tablets by mo ut twice daily SLO-NIACIN 500 MG CR-TABS Two tablets by mouth twice daily NIACIN [id number] Debbie Retana Start: 04-23-2011 take 2 tablets by mo uth twice daily SLO-NIACIN 500 MG CR-TABS Two tablets by mouth twice daily NIACIN [id number] Debbie Retana omega-3 acid ethyl esters (halfway) 1000 mg oral capsule (20 sources) Start: 06-08-2018 End: 01-29-2025 take 1 capsule by mouth twice daily Kechi-3 Acid Ethyl Esters (Lovaza) 1 gram capsule Discontinued 1 NMA PO TWICE A DAY September 11, 2019 10:36am October 06, 2024 10:59am Start: 04-23-2011 take 1 tablet by rajni twice daily LOVAZA 1 GM CAPS One tablet by mouth twice daily LCLUM-4-CUEH ETHYL ESTERS [id number] Debbie Retana Start: 04-23-2011 take 1 tablet by rajni th twice daily LOVAZA 1 GM CAPS One tablet by mouth twice daily IEHCO-3-OCRS ETHYL ESTERS [id number] Debbie Retana End: 12-07-2022 omega-3 acid ethyl esters (L OVAZA) 1 gram capsule Take 2 g by mouth twice daily. 0 12/07/2022 Discontinued Comment on above: Take 2 g by mouth tw ice daily. Take 2 capsules by m outh twice daily. TAKE 2 CAPSULES BY M OUTH TWICE DAILY potassium citrate 10 meq extended release oral tablet (20 sources) Start: 3 End: 4 take 1 tablet by mouth three times daily Potassium Citrate 10 mEq (1,080 mg) tablet extended release Discontinued 10 meq PO THREE TIMES A DAY February 08, 2024 12:00am June 01, 2024 1:50pm Comment on above: Take 1 tablet by rajni three times a day with meals. simvastatin 40 mg oral tablet (20 sources) HMG-CoA Reductase Inhibitor Start: 1 End: 5 take 1 tablet by mouth once daily simvastatin (ZOCOR) 40 mg tablet TAKE 1 TABLET BY MOUTH ONCE DAILY 90 tablet 3 08/28/2024 08/06/2025 Discontinued Comment on above: Take 40 mg by mouth daily at bedtime. TAKE 1 TABLET BY RAJNI ONCE DAILY DIRECTED Take 1 tablet by rajni once daily. sodium bicarbonate 650 mg oral tablet (13 sources) Start: 4 End: 5 take 1 tablet by mouth three times daily sodium bicarbonate 650 mg tablet Take 1 tablet by mouth three times a day. 270 tablet 3 06/22/2024 08/06/2025 Discontinued tamsulosin hydrochloride 0.4 mg oral capsule (4 sources) alpha-Adrenergic Janice Start: 3 End: 3 take 1 capsule by mouth once daily at bedtime tamsulosin (FLOMAX) 0.4 mg Take 1 capsule by mouth daily at bedtime for 14 days. 14 capsule 0 04/21/2023 06/07/2023 Discontinued (Course of therapy completed) Comment on above: [facility] 14 days. ursodiol 300 mg oral tablet (20 sources) Bile Acid Start: 4 End: take 1 capsule by mouth twice daily Ursodiol 300 mg capsule Discontinued 300 mg PO TWICE A DAY 60 0 March 22, 2024 4:02pm March 27, 2024 11:16am Start: 03-19-2023 End: 04-10-2024 take 1 capsule by mouth twice daily Ursodiol 300 mg capsule Discontinued 300 mg PO TWICE A DAY 60 11 March 25, 2023 3:02pm March 22, 2024 4:02pm Comment on above: Take 300 mg by mouth twice daily. vit C,R-Gk-ofgts-lutein-ze axan (PRESERVISION AREDS-2) 250-90-40-1 mg (1 source) Start: 09-23-2020 End: 06-07-2023 vit C,B-Sf-ettgk-lutein-zeaxan (PRESERVISION AREDS-2) 250-90-40-1 mg Take by mouth. 0 09/23/2020 06/07/2023 Discontinued (Duplicate Entry) Comment on above: Take by mouth. Problems Active Problems Problem Classification Problem Date Documented Da te Episodic/Chronic Calculus of urinary tract (11 sources) History of calculus of kidney; Translations: [Personal history of urinary calculi] Onset: Episodic Deficiency and other anemia (7 sources) Anemia; Translations: [Anemia, unspecified] 02-08-2024 Episodic Comment on above: 01/2024 Deficiency and other anemia (4 sources) Anemia, unspecified; Translations: [Anemia, unspecified] 02-08-2024 Episodic Diabetes mellitus without complication (3 sources) Type 2 diabetes mellitus; Translations: [Type 2 diabetes mellitus without complications] Onset: 5 01-31-2025 Chronic Diabetes mellitus without complication (20 sources) Hyperglycemia; Translations: [Hyperglycemia, unspecified] Onset: Episodic Disorders of lipid metabolism (20 sources) Hyperlipidemia; Translations: [Hyperlipidemia, unspecified] Onset: 1 04-23-2011 Chronic Esophageal disorders (20 sources) Gastroesophageal reflux disease; Translations: [Gastro-esophageal reflux disease without esophagitis] Onset: 6 11-09-2006 Chronic Essential hypertension (20 sources) Hypertensive disorder; Translations: [Essential (primary) hypertension] Onset: 1 04-23-2011 Chronic Comment on above: CONTROLLED WITH MED Gastrointestinal hemorrhage (11 sources) Acute lower gastrointestinal hemorrhage; Translations: [Gastrointestinal hemorrhage, unspecified] 02-08-2024 Episodic Genitourinary congenital anomalies (3 sources) Horseshoe kidney; 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, 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 Genitourinary symptoms and ill-defined conditions (3 sources) History of urinary tract infection; Translations: [Personal history of urinary (tract) infections] Episodic Gout and other crystal arthropathies (20 sources) Gout; Translations: [Gout, unspecified] Onset: 7 12-07-2022 Chronic Heart valve disorders (20 sources) Non-rheumatic mitral regurgitation ; Translations: [Nonrheumatic mitral (valve) insufficiency] Onset: 3 12-07-2022 Chronic Hepatitis (7 sources) Nonalcoholic steatohepatitis; Translations: [Nonalcoholic steatohepatitis (CASTELLANOS)] 09-28-2023 Chronic Hyperplasia of prostate (20 sources) Benign prostatic hypertrophy with outflow obstruction; Translations: [Benign prostatic hyperplasia with lower urinary tract symptoms] Onset: 6 03-11-2006 Chronic Immunizations and screening for infectious disease (17 sources) Patient encounter status; Translations: [Encounter for immunization] 09-15-2022 Episodic Nausea and vomiting (13 sources) Vomiting; Translations: [Vomiting, unspecified] 05-12-2022 Episodic Noninfectious gastroenteritis (1 source) Gastroenteritis; Translations: [Noninfective gastroenteritis and colitis, unspecified] Episodic Other acquired deformities (4 sources) Lumbar spondylolisthesis; Translations: [Spondylolisthesis, lumbar region] 01-11-2025 Episodic Other bone disease and musculoskeletal deformities (4 sources) Segmental and somatic dysfunction; Translations: [Segmental and somatic dysfunction of pelvic region] 04-23-2024 Episodic Other bone disease and musculoskeletal deformities (2 sources) Lumbar segmental dysfunction ; Translations: [Segmental and somatic dysfunction of lumbar region] 04-20-2024 Episodic Other bone disease and musculoskeletal deformities (2 sources) Cervical segmental dysfunction; Translations: [Segmental and somatic dysfunction of cervical region] 04-20-2024 Episodic Other circulatory disease (5 sources) Orthostatic hypotension; Translations: [Orthostatic hypotension] 02-08-2024 Episodic Other circulatory disease (3 sources) Orthostatic hypotension; Translations: [Orthostatic hypotension] 02-08-2024 Episodic Other connective tissue disease (3 sources) Swelling of lower limb; Translations: [Other specified soft tissue disorders] 10-06-2024 Episodic Other diseases of bladder and urethra (20 sources) Bladder neck obstruction; Translations: [Bladder-neck obstruction] Onset: 6 03-11-2006 Chronic Other endocrine disorders (3 sources) Hyperparathyroidism; Translations: [Hyperparathyroidism, unspecified] 10-20-2023 Chronic Other endocrine disorders (1 source) Mass of left adrenal gland; Translations: [Other specified disorders of adrenal gland] 05-05-2024 Chronic Other endocrine disorders (1 source) Adrenal mass; Translations: [Other specified disorders of adrenal gland] 06-22-2024 Chronic Other endocrine disorders (2 sources) Disorder of adrenal gland; Translations: [Disorder of adrenal gland, unspecified] 06-22-2024 Chronic Other gastrointestinal disorders (1 source) Chronic constipation; Translations: [Other constipation] Episodic Other gastrointestinal disorders (5 sources) Constipation, unspecified; Translations: [Constipation, unspecified] 02-05-2023 Episodic Other hematologic conditions (20 sources) Macrocytosis; Translations: [Other specified diseases of blood and blood-forming organs] Onset: 1 12-07-2022 Chronic Other infections; including parasitic (1 source) Personal history of other infectious and parasitic diseases; Translations: [Personal history of COVID-19] Episodic Other liver diseases (8 sources) Steatosis of liver; Translations: [Fatty (change of) liver, not elsewhere classified] 02-24-2023 Chronic Other liver diseases (4 sources) Fatty (change of) liver, not elsewhere classified; Translations: [Metabolic dysfunction-associated steatotic liver disease (MASLD)] Onset: 5 10-06-2024 Chronic Other male genital disorders (1 source) Secondary erectile dysfunction; Translations: [Male erectile dysfunction, unspecified] Chronic Other male genital disorders (20 sources) Male erectile dysfunction, unspecified; Translations: [Impotence of organic origin] Onset: 0 06-26-2022 Chronic Other nervous system disorders (20 sources) Polyneuropathy; Translations: [Polyneuropathy, unspecified] Onset: 2 12-07-2022 Chronic Other nervous system disorders (2 sources) Polyneuropathy, unspecified; Translations: [Unspecified hereditary and idiopathic peripheral neuropathy] Chronic Other nervous system disorders (20 sources) Neuropathy; Translations: [Polyneuropathy, unspecified] Onset: 0 12-07-2022 Chronic Other nervous system disorders (2 sources) Carpal tunnel syndrome; Translations: [Carpal tunnel syndrome, bilateral upper limbs] 08-01-2024 Chronic Other non-traumatic joint disorders (6 sources) Hip pain; Translations: [Pain in left hip] 09-24-2023 Episodic Other non-traumatic joint disorders (1 source) Pain in left hip; Translations: [Pain in joint, pelvic region and thigh] 03-30-2024 Episodic Other nutritional; endocrine; and metabolic disorders (5 sources) Body mass index (BMI) 32.0-32.9, adult; Translations: [Body mass index (BMI) 32.0-32.9, adult] Onset: 3 08-21-2013 Chronic Other nutritional; endocrine; and metabolic disorders (20 sources) Obesity; Translations: [Obesity, unspecified] Onset: 3 12-07-2022 Chronic Other nutritional; endocrine; and metabolic disorders (20 sources) Obese class I; Translations: [Obesity, unspecified] Onset: 3 11-11-2023 Chronic Other nutritional; endocrine; and metabolic disorders (1 source) Calculus = calcium oxalate; Translations: [Other disorders of calcium metabolism] 05-05-2024 Chronic Other nutritional; endocrine; and metabolic disorders (1 source) Aciduria; 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, unspecified] 05-05-2024 Chronic Other screening for suspected conditions (not mental disorders or infectious disease) (20 sources) Serum creatinine raised; Translations: [Other specified abnormal findings of blood chemistry] Onset: 5 09-04-2022 Episodic Residual codes; unclassified (1 source) History of parathyroidectomy; Translations: [Other specified postprocedural states] 05-05-2024 Episodic Screening and history of mental health and substance abuse codes (2 sources) Encounter for screening for depression; Translations: [Encounter for screening examination for other mental health and behavioral disorders] Onset: 5 Episodic Spondylosis; intervertebral disc disorders; other back problems (4 sources) Degeneration of lumbosacral intervertebral disc; Translations: [Degeneration of intervertebral disc of lumbosacral region] 04-23-2024 Chronic Unclassified (2 sources) Long-term drug therapy; Translations: [Other termination clerk (current) drug therapy] Onset: 04-23-2011 Unclassified (1 source) M48.061 - Spinal stenosis, lumbar region without neurogenic claudication Unclassified (1 source) Low back pain, unspecified; Translations: [Low back pain, unspecified] Onset: 5 Past or Other Problems Problem Classification Problem Date Documented Da te Episodic/Chronic Cardiac dysrhythmias (5 sources) Palpitations; Translations: [Palpitations] Onset: 04-23-2011 04-23-2011 Episodic Fluid and electrolyte disorders (20 sources) Dehydration; Translations: [Dehydration] Onset: 05-07-2022 12-07-2022 Episodic Other acquired deformities (1 source) Spondylolisthesis, lumbar region; Translations: [Spondylolisthesis, lumbar region] Onset: 02-15-2025 Episodic Other aftercare (3 sources) Other termination clerk (current) drug therapy; Translations: [Other termination clerk (current) drug therapy] Onset: 04-23-2011 04-23-2011 Episodic Other connective tissue disease (20 sources) Diastasis recti; Translations: [Separation of muscle (nontraumatic), other site] Onset: 12-07-2022 12-07-2022 Episodic Other gastrointestinal disorders (20 sources) Constipation; Translations: [Constipation, unspecified] Onset: 04-06-2019 12-07-2022 Episodic Other nervous system disorders (20 sources) Paresthesia of skin; Translations: [Paresthesia of both hands] Onset: 12-07-2022 Episodic Other nervous system disorders (20 sources) Burning feet; Translations: [Other disturbances of skin sensation] Onset: 02-22-2020 12-07-2022 Episodic Other upper respiratory infections (20 sources) Acute ethmoidal sinusitis; Translations: [Acute ethmoidal sinusitis, unspecified] Onset: 02-22-2020 12-07-2022 Episodic Peripheral and visceral atherosclerosis (20 sources) Intermittent claudication; Translations: [Peripheral vascular disease, unspecified] Onset: 12-07-2022 Resolved: 03-16-2023 12-07-2022 Chronic Residual codes; unclassified (20 sources) Edema of lower extremity; Translations: [Localized edema] Onset: 12-07-2022 12-07-2022 Episodic Spondylosis; intervertebral disc disorders; other back problems (20 sources) Low back pain; Translations: [Low back pain without sciatica] Onset: 12-07-2022 12-07-2022 Episodic Unclassified (5 sources) Family history of ischemic heart disease; Translations: [Family history of ischemic heart disease and other diseases of the circulatory system] Onset: 08-31-2013 08-31-2013 Episodic Results Test Name Value Interpretation Reference Range Facility Gastroenterology Visit [facility] 09-26-2025 Gastroenterology Visit Report [facility] [address] [place] [address] OFFICE VISIT Date of Service: 09/26/25 MR#: [id number] Acct: [id number] Name: KERWIN ALVARADO Rep #: [id number] : 1940 Provider: Dr. Faisal harper MD Age/Sex: 85/M Location: [facility] Status: Signed Intake Vital Signs 07/31/25 09:53 09/26/25 13:02 Height 5 ft 8 in 5 ft 8 in Weight: 224 lb 221 lb BMI 34.0 33.5 BP 120/71 136/81 H Blood Pressure Location Lt brachial Rt brachial Position Sitting Sitting Respiration 16 Pulse 80 88 Pulse Source Monitor Temp 97.4 F L Temp Source Temporal Pulse Oximetry (%) 96 96 Oxygen Delivery Method room air room air Intake Visit Reasons: fu Chief Complaint: Allergies No Known Allergies Allergy (Verified 09/26/25 13:01) Medications ???Medication ???Instructions ???Recorded ???Confirmed ???Type cyanocobalamin (vitamin B-12) 1,000 mcg PO QDAY 06/08/18 5 History 1,000 mcg tablet (Vitamin B-12) multivitamin 1 tab PO QDAY 06/08/18 09/26/25 Hi story omeprazole 20 mg capsule,delayed 20 mg PO QDAY 06/08/18 09/26/25 Hi story release valsartan 320 1 tab PO QHS 06/08/18 09/26/25 His tory mg-hydrochlorothiazide 25 mg tablet (Diovan HCT) allopurinol 100 mg tablet 100 mg PO BID 06/13/18 09/26/25 Hi story vit C 250 mg-vit E 90 mg-zinc 40 2 tab PO DAILY 09/23/20 09/26/25 H istory mg-copper 1 ah-ysaubz-ehrchc capsule (PreserVision AREDS-2) sildenafil (pulm.hypertension) 20 20 mg PO Q24H PRN sexual activity 09/29/21 09/26/25 History mg tablet cholecalciferol (vitamin D3) 125 125 mcg PO DAILY 06/01/24 09/26/25 History mcg (5,000 unit) tablet (Vitamin D3) duloxetine 30 mg capsule,delayed 30 mg PO QDAY 08/08/25 09/26/25 Hi story release resmetirom 100 mg tablet 100 mg PO QDAY 1 month #30 tabs 09/26/25 Rx (Rezdiffra) rosuvastatin 10 mg tablet 10 mg PO QDAY 90 days #90 tabs 04/1509/26/25 Rx Have you fallen in the past year?: No PFSH Medical History Wears glasses Cancer Prostate disease Low iron High cholesterol Neuropathic arthritis NAFLD (nonalcoholic fatty liver disease) History of hiatal hernia History of GI bleed History of diverticulitis Gastric reflux Non-smoker Shortness of breath on exertion Leg cramps History of edema History of echocardiogram History of stress test Cardiology follow-up encounter Segmental dysfunction of lumbar region Segmental dysfunction of cervical region Anemia Obesity Essential hypertension Spinal stenosis at L4-L5 level Low back pain without sciatica Diastasis recti Surgical History History of knee surgery Hx of right cataract extraction Hx of left cataract extraction History of esophagogastroduodenosco py (EGD) Hx of parathyroidectomy History of tonsillectomy and adenoidectomy History of cystoscopy (02/2008) Family History Father Dementia Mother Atrial fibrillation Sister Cancer Breast Social History Smoking Status: Never smoker second hand exposure: No alcohol intake: current alcohol intake frequency: a few times a week Alcohol type: wine substance use type: does not use caffeine: Yes Type: coffee Number of servings: 3 what type of physical activity do you participate in: none maria fernanda/buddhism: Muslim seatbelt use: always HPI HPI Chief Complaint: Details: KERWIN ALVARADO, is a 85 M who presents to the office today for follow up. *BGI established 3.. Constipation has been a long-term issue with worsening in the last 3 months. Will use stool softener/stimulant to promote movement. Without intervention he has no BM or minimal BM with extensive straining; does not note blood/mucus. GES ..- Normal 39.22 CT abd/pel 3.. - fatty liver, kidney stones, enlarged prostate US/Elastography 4.- Liver measures 16cm 13.2 Kpa F3-F4- Rx Ursodiol OV 7.3.23 Pt is stable since last visit. Previously tried on Linzess for constipation. Was helpful at first but then developed diarrhea. Constipation is controlled now with daily stool softener. Was prescribed Ursodiol for fatty liver but has not taken it. Has several questions about fatty liver and previous work up. US abd/Elastography 9..- Liver measures 15.7cm 11.3 kPa Contact 08.03.23 Gave liver US results, repeast scan in 6 months. C/o diverticulitis flair up. Rx cipro and flagyl OV 11.7.23 PT doing very well since last visit. BM are normal and consistent. No abdominal pain. No issues GI bleed. Continues Ursodiol 300mg BID with no other concerns. Currently take (more content not included)... Normal [facility] Basic metabolic 2000 panelon 08-17-2025 Anion gap [Moles/Vol] 11 mmol/L Normal 8-15 [facility] Comment on above: Order Comment: Speci men Type: BLOOD SPECIMEN Ordering Facility: [facility] Address: [address] [place] [address] [place] [address] Performed By: #### 2 4321-2 #### [facility] [id number] [address] [place] [address] [place] Calcium [Mass/Vol] 9.2 mg/dL Normal 8.5-10.2 [facility] Comment on above: Order Comment: Speci men Type: BLOOD SPECIMEN Ordering Facility: [facility] Address: [address] [place] [address] Performed By: #### 2 4321-2 #### [facility] CLIA [id number] [address] [place] [address] [place] Chloride [Moles/Vol] 103 mmol/L Normal 98-107 [facility] Comment on above: Order Comment: Speci men Type: BLOOD SPECIMEN Ordering Facility: [facility] Address: [address] [place] [address] Performed By: #### 2 4321-2 #### [facility] CLIA [id number] [address] [place] [address] [place] CO2 [Moles/Vol] 24 mmol/L Normal 22-30 [facility] Comment on above: Order Comment: Speci men Type: BLOOD SPECIMEN Ordering Facility: [facility] Address: [address] [place] [address] Performed By: #### 2 4321-2 #### [facility] CLIA [id number] [address] [place] [address] [place] Creatinine [Mass/Vol] 1.11 mg/dL Normal 0.73-1.22 [facility] Comment on above: Order Comment: Speci men Type: BLOOD SPECIMEN Ordering Facility: [facility] Address: [address] [place], [place] [address] Performed By: #### 2 4321-2 #### [facility] CLIA [id number] [address] [place] [address] [place] eGFRcr SerPlBld CKD-EPI 2020 66 mL/min/1.73m??? Normal >=60 [facility] Comment on above: Order Comment: Av christopher Type: BLOOD SPECIMEN Ordering Facility: [facility] Address: [address] [place] [address] Result Comment: Yessi mated Glomerular Filtration Rate (eGFR) is calculated using the 2020 CKD-EPI creatinine equation. This equation utilizes serum creatinine, sex, and age as parameters. The creatinine assay has traceable calibration to isotope dilution-mass spectrometry. Refer to KDIGO guidelines for clinical interpretation. In patients with unstable renal function, e.g. those with acute kidney injury, the eGFR may not accurately reflect actual GFR. Performed By: #### 2 4321-2 #### [facility] [id number] [address] [place] [address] [place] Glucose [Mass/Vol] 113 mg/dL High 74-99 [facility] Comment on above: Order Comment: Av christopher Type: BLOOD SPECIMEN Ordering Facility: [facility] Address: [address] [place] [address] Result Comment: The [place] [employer] (ADA) provides guidance for cutoff values for fasting glucose and random glucose. The ADA defines fasting as no caloric intake for at least 8 hours. Fasting plasma glucose results between 100 to 125 mg/dL indicate increased risk for diabetes (prediabetes). Fasting plasma glucose results greater than or equal to 126 mg/dL meet the criteria for diagnosis of diabetes. In the absence of unequivocal hyperglycemia, results should be confirmed by repeat testing. In a patient with classic symptoms of hyperglycemia or hyperglycemic crisis, random plasma glucose results greater than or equal to 200 mg/dL meet the criteria for diagnosis of diabetes. Reference: Standards of Medical Care in Diabetes 2016, [place] [employer]. Diabetes Care. 2016.39(Suppl 1). Performed By: #### 2 4321-2 #### [facility] [id number] [address] [place] [address] [place] Potassium [Moles/Vol] 4.1 mmol/L Normal 3.7-5.1 [facility] Comment on above: Order Comment: Av christopher Type: BLOOD SPECIMEN Ordering Facility: [facility] Address: [address] [place] [address] [place] [address] Performed By: #### 2 4321-2 #### [facility] CLIA [id number] [address] [place] [address] [place] Sodium [Moles/Vol] 138 mmol/L Normal 136-144 [facility] Comment on above: Order Comment: Speci men Type: BLOOD SPECIMEN Ordering Facility: [facility] Address: [address] [id number] Performed By: #### 2 4321-2 #### [facility] CLIA [id number] [address] [place] [address] [place] Urea nitrogen [Mass/Vol] 24 mg/dL Normal 9-24 [facility] Comment on above: Order Comment: Speci men Type: BLOOD SPECIMEN Ordering Facility: [facility] Address: [address] [id number] Performed By: #### 2 4321-2 #### [facility] CLIA [id number] [address] [place] [address] [place] CBC W Auto Differential pane l (Bld)on 08-07-2025 Basophils (Bld) [#/Vol] 0.05 10*3/uL [facility] Basophils/100 WBC (Bld) 1.1 % [facility] Differential cell count method Nom (Bld) Auto [facility] Eosinophils (Bld) [#/Vol] 0.20 10*3/uL [facility] Eosinophils/100 WBC (Bld) 4.2 % [facility] Erythrocyte distribution width (RBC) [Ratio] 12.5 % 11.5 - 15.0 % [facility] Hematocrit (Bld) [Volume fraction] 37.8 % Low 39.0 - 51.0 % [facility] Hemoglobin (Bld) [Mass/Vol] 13.5 g/dL 13.0 - 17.0 g/dL [facility] Immature granulocytes (Bld) [#/Vol] [facility] Immature granulocytes/100 WBC (Bld) 0.2 % [facility] Interpretation and review of laboratory results Abnormal [facility] Lymphocytes (Bld) [#/Vol] 1.73 10*3/uL [facility] Lymphocytes/100 WBC (Bld) 36.4 % [facility] MCH (RBC) [Entitic mass] 36.3 pg High 26. 0 - 34.0 pg [facility] MCHC (RBC) [Mass/Vol] 35.7 g/dL 30.5 - 36.0 g/dL [facility] MCV (RBC) [Entitic vol] 101.6 fL High 80.0 - 100.0 fL [facility] Monocytes (Bld) [#/Vol] 0.69 10*3/uL [facility] Monocytes/100 WBC (Bld) 14.5 % [facility] Neutrophils (Bld) [#/Vol] 2.07 10*3/uL [facility] Neutrophils/100 WBC (Bld) 43.6 % [facility] Nucleated RBC (Bld) [#/Vol] NINF [facility] Nucleated RBC/100 WBC (Bld) [Ratio] 0.0 % /100 WBC [facility] Platelet mean volume (Bld) [Entitic vol] 9.8 fL 9.0 - 12.7 fL [facility] Platelets (Bld) [#/Vol] 190 10*3/uL [facility] RBC (Bld) [#/Vol] 3.72 10*6/uL Low 4.20 - 6.0 0 m/uL [facility] WBC (Bld) [#/Vol] 4.75 10*3/uL [facility] Basophils (Bld) [#/Vol] 0.05 10*3/uL Normal <0.11 [facility] Comment on above: Order Comment: Speci men Type: BLOOD SPECIMEN Ordering Facility: [facility] Address: [address] [place] [address] Performed By: #### 5 7021-8 #### [facility] [place]YSTALIA [id number] [address] [place] [address] [place] Basophils/100 WBC (Bld) 1.1 % Normal [facility] Comment on above: Order Comment: Speci men Type: BLOOD SPECIMEN Ordering Facility: [facility] Address: [address] [place] [address] Performed By: #### 5 7021-8 #### [facility] CLIA [id number] [address] [place] [address] [place] Differential cell count method Nom (Bld) Auto Normal [facility] Comment on above: Order Comment: Speci men Type: BLOOD SPECIMEN Ordering Facility: [facility] Address: [address] [place] [address] Performed By: #### 5 7021-8 #### [facility] CLIA [id number] [address] [place] [address] [place] Eosinophils (Bld) [#/Vol] 0.20 10*3/uL Normal <0.46 [facility] Comment on above: Order Comment: Speci men Type: BLOOD SPECIMEN Ordering Facility: [facility] Address: [address] [place] [address] Performed By: #### 5 7021-8 #### [facility] CLIA [id number] [address] [place] [address] [place] Eosinophils/100 WBC (Bld) 4.2 % Normal [facility] Comment on above: Order Comment: Speci men Type: BLOOD SPECIMEN Ordering Facility: [facility] Address: [address] [place] [address] Performed By: #### 5 7021-8 #### [facility] CLIA [id number] [address] [place] [address] [place] Erythrocyte distribution width (RBC) [Ratio] 12.5 % Normal 11.5-15.0 [facility] Comment on above: Order Comment: Speci men Type: BLOOD SPECIMEN Ordering Facility: [facility] Address: [address] [place] [address] Performed By: #### 5 7021-8 #### [facility] CLIA [id number] [address] [place] [address] [place] Hematocrit (Bld) [Volume fraction] 37.8 % Low 39.0-51.0 [facility] Comment on above: Order Comment: Speci men Type: BLOOD SPECIMEN Ordering Facility: [facility] Address: [address] [place] [address] Performed By: #### 5 7021-8 #### [facility] CLIA [id number] [address] [place] [address] [place] Hemoglobin (Bld) [Mass/Vol] 13.5 g/dL Normal 13.0-17.0 [facility] Comment on above: Order Comment: Speci men Type: BLOOD SPECIMEN Ordering Facility: [facility] Address: [address] [place] [address] Performed By: #### 5 7021-8 #### [facility] CLIA [id number] [address] [place] [address] [place] Immature granulocytes (Bld) [#/Vol] 10*3/uL Normal <0.10 [facility] Comment on above: Order Comment: Speci men Type: BLOOD SPECIMEN Ordering Facility: [facility] Address: [address] [place] [address] Performed By: #### 5 7021-8 #### [facility] CLIA [id number] [address] [place] [address] [place] Immature granulocytes/100 WBC (Bld) 0.2 % Normal [facility] Comment on above: Order Comment: Speci men Type: BLOOD SPECIMEN Ordering Facility: [facility] Address: [address] [place] [address] Performed By: #### 5 7021-8 #### [facility] CLIA [id number] [address] [place] [address] [place] Lymphocytes (Bld) [#/Vol] 1.73 10*3/uL Normal 1.00-4.00 [facility] Comment on above: Order Comment: Speci men Type: BLOOD SPECIMEN Ordering Facility: [facility] Address: [address] [place] [address] Performed By: #### 5 7021-8 #### [facility] CLIA [id number] [address] [place] [address] STATES [facility] Lymphocytes/100 WBC (Bld) 36.4 % Normal [facility] Comment on above: Order Comment: Speci men Type: BLOOD SPECIMEN Ordering Facility: [facility] Address: [address] [place] [address] Performed By: #### 5 7021-8 #### [facility] CLIA [id number] [address] [place] [address] [place] MCH (RBC) [Entitic mass] 36.3 pg High 26.0-34.0 [facility] Comment on above: Order Comment: Speci men Type: BLOOD SPECIMEN Ordering Facility: [facility] Address: [address] [place] [address] Performed By: #### 5 7021-8 #### [facility] CLIA [id number] [address] [place] [address] [place] MCHC (RBC) [Mass/Vol] 35.7 g/dL Normal 30.5-36.0 [facility] Comment on above: Order Comment: Speci men Type: BLOOD SPECIMEN Ordering Facility: [facility] Address: [address] [place] [address] Performed By: #### 5 7021-8 #### [facility] CLIA [id number] [address] [place] [address] [place] MCV (RBC) [Entitic vol] 101.6 fL High 80.0-100.0 [facility] Comment on above: Order Comment: Speci men Type: BLOOD SPECIMEN Ordering Facility: [facility] Address: [address] [place] [address] Performed By: #### 5 7021-8 #### [facility] CLIA [id number] [address] [place] [address] [place] Monocytes (Bld) [#/Vol] 0.69 10*3/uL Normal <0.87 [facility] Comment on above: Order Comment: Speci men Type: BLOOD SPECIMEN Ordering Facility: [facility] Address: [address] [place] [address] Performed By: #### 5 7021-8 #### [facility] CLIA [id number] [address] [place] [address] [place] Monocytes/100 WBC (Bld) 14.5 % Normal [facility] Comment on above: Order Comment: Speci men Type: BLOOD SPECIMEN Ordering Facility: [facility] Address: [address] [place] [address] Performed By: #### 5 7021-8 #### [facility] CLIA [id number] [address] [place] [address] [place] Neutrophils (Bld) [#/Vol] 2.07 10*3/uL Normal 1.45-7.50 [facility] Comment on above: Order Comment: Speci men Type: BLOOD SPECIMEN Ordering Facility: [facility] Address: [address] [place] [address] Performed By: #### 5 7021-8 #### [facility] CLIA [id number] [address] [place] [address] [place] Neutrophils/100 WBC (Bld) 43.6 % Normal [facility] Comment on above: Order Comment: Speci men Type: BLOOD SPECIMEN Ordering Facility: [facility] Address: [address] [place] [address] Performed By: #### 5 7021-8 #### [facility] CLIA [id number] [address] [place] [address] [place] Nucleated RBC (Bld) [#/Vol] 10*3/uL Normal <0.01 [facility] Comment on above: Order Comment: Speci men Type: BLOOD SPECIMEN Ordering Facility: [facility] Address: [address] [place] [address] Performed By: #### 5 7021-8 #### [facility] CLIA [id number] [address] [place] [address] [place] Nucleated RBC/100 WBC (Bld) [Ratio] 0.0 /100 WBC Normal [facility] Comment on above: Order Comment: Speci men Type: BLOOD SPECIMEN Ordering Facility: [facility] Address: [address] [place] [address] Performed By: #### 5 7021-8 #### [facility] CLIA [id number] [address] [place] [address] [place] Platelet mean volume (Bld) [Entitic vol] 9.8 fL Normal 9.0-12.7 [facility] Comment on above: Order Comment: Speci men Type: BLOOD SPECIMEN Ordering Facility: [facility] Address: [address] [place] [address] Performed By: #### 5 7021-8 #### [facility] CLIA [id number] [address] [place] [address] [place] Platelets (Bld) [#/Vol] 190 10*3/uL Normal 150-400 [facility] Comment on above: Order Comment: Speci men Type: BLOOD SPECIMEN Ordering Facility: [facility] Address: [address] [place] [address] Performed By: #### 5 7021-8 #### [facility] CLIA [id number] [address] [place] [address] [place] RBC (Bld) [#/Vol] 3.72 10*6/uL Low 4.20-6.00 [facility] Comment on above: Order Comment: Speci men Type: BLOOD SPECIMEN Ordering Facility: [facility] Address: [address] [place] [address] Performed By: #### 5 7021-8 #### [facility] CLIA [id number] [address] [place] [address] [place] WBC (Bld) [#/Vol] 4.75 10*3/uL Normal 3.70-11.00 [facility] Comment on above: Order Comment: Speci men Type: BLOOD SPECIMEN Ordering Facility: [facility] Address: [facility] [place] [address] Performed By: #### 5 7021-8 #### [facility] CLIA [id number] [address] [place] Comprehensive metabolic 2000 panelOrdered By: Tiki Fuller on 08-07-2025 Albumin [Mass/Vol] 4.0 g/dL 3.9 - 4.9 g/dL [facility] ALP [Catalytic activity/Vol] 83 U/L 38 - 113 U/L [facility] ALT [Catalytic activity/Vol] 20 U/L 10 - 54 U/L [facility] Anion gap [Moles/Vol] 11 mmol/L 8 - 15 mmol/L [facility] AST [Catalytic activity/Vol] 21 U/L 14 - 40 U/L [facility] Bilirubin [Mass/Vol] 0.6 mg/dL 0.2 - 1 .3 mg/dL [facility] Calcium [Mass/Vol] 9.5 mg/dL 8.5 - 10. 2 mg/dL [facility] Chloride [Moles/Vol] 104 mmol/L 98 - 10 7 mmol/L [facility] CO2 [Moles/Vol] 24 mmol/L 22 - 30 mmol/L [facility] Creatinine [Mass/Vol] 1.38 mg/dL High 0.73 - 1.22 mg/dL [facility] GFR/1.73 sq M.predicted among non-blacks MDRD (S/P/Bld) [Vol rate/Area] 51 mL/min/{1.73_m2} Low - PINF [facility] Comment on above: Estimated Glomerular Filtration Rate (eGFR) is calculated using the 2020 CKD-EPI creatinine equation. This equation utilizes serum creatinine, sex, and age as parameters. The creatinine assay has traceable calibration to isotope dilution-mass spectrometry. Refer to KDIGO guidelines for clinical interpretation. In patients with unstable renal function, e.g. those with acute kidney injury, the eGFR may not accurately reflect actual GFR. Glucose [Mass/Vol] 106 mg/dL High 74 - 99 mg/dL [facility] Comment on above: The [place] Di[employer] s Association (ADA) provides guidance for cutoff values for fasting glucose and random glucose. The ADA defines fasting as no caloric intake for at least 8 hours. Fasting plasma glucose results between 100 to 125 mg/dL indicate increased risk for diabetes (prediabetes). Fasting plasma glucose results greater than or equal to 126 mg/dL meet the criteria for diagnosis of diabetes. In the absence of unequivocal hyperglycemia, results should be confirmed by repeat testing. In a patient with classic symptoms of hyperglycemia or hyperglycemic crisis, random plasma glucose results greater than or equal to 200 mg/dL meet the criteria for diagnosis of diabetes. Reference: Standards of Medical Care in Diabetes 2016, [place] [employer]. Diabetes Care. 2016.39(Suppl 1). Interpretation and review of laboratory results Abnormal [facility] Potassium [Moles/Vol] 4.1 mmol/L 3.7 - 5.1 mmol/L [facility] Protein [Mass/Vol] 7.1 g/dL 6.3 - 8.0 g/dL [facility] Sodium [Moles/Vol] 139 mmol/L 136 - 144 mmol/L [facility] Urea nitrogen [Mass/Vol] 39 mg/dL High 9 - 24 mg/d L [facility] Comprehensive metabolic 2000 panelon 08-07-2025 Albumin [Mass/Vol] 4.0 g/dL Normal 3.9-4.9 [facility] Comment on above: Order Comment: Av christopher Type: BLOOD SPECIMEN Ordering Facility: [facility] Address: [address] [place] [address] Performed By: #### 2 4323-8 #### [facility] [id number] [address] [place] [address] [place] ALP [Catalytic activity/Vol] 83 U/L Normal 38-113 [facility] Comment on above: Order Comment: Av christopher Type: BLOOD SPECIMEN Ordering Facility: [facility] Address: [address] [place], [place] [id number] Performed By: #### 2 4323-8 #### [facility] CLIA [id number] [address] [place] [address] [place] ALT [Catalytic activity/Vol] 20 U/L Normal 10-54 [facility] Comment on above: Order Comment: Speci men Type: BLOOD SPECIMEN Ordering Facility: [facility] Address: [facility] [place] [address] Performed By: #### 2 4323-8 #### [facility] CLIA [id number] [address] [place] [address] [place] Anion gap [Moles/Vol] 11 mmol/L Normal 8-15 [facility] Comment on above: Order Comment: Speci men Type: BLOOD SPECIMEN Ordering Facility: [facility] Address: [address] [place] [address] Performed By: #### 2 4323-8 #### [facility] CLIA [id number] [address] [place] [address] [place] AST [Catalytic activity/Vol] 21 U/L Normal 14-40 [facility] Comment on above: Order Comment: Speci men Type: BLOOD SPECIMEN Ordering Facility: [facility] Address: [facility] [place] [address] Performed By: #### 2 4323-8 #### [facility] CLIA [id number] [address] [place] [address] [place] Bilirubin [Mass/Vol] 0.6 mg/dL Normal 0.2-1.3 [facility] Comment on above: Order Comment: Speci men Type: BLOOD SPECIMEN Ordering Facility: [facility] Address: [address] [place] [address] Performed By: #### 2 4323-8 #### [facility] CLIA [id number] [address] [place] [address] [place] Calcium [Mass/Vol] 9.5 mg/dL Normal 8.5-10.2 [facility] Comment on above: Order Comment: Speci men Type: BLOOD SPECIMEN Ordering Facility: [facility] Address: [address] [place] [address] Performed By: #### 2 4323-8 #### [facility] CLIA [id number] [address] [place] [address] [place] Chloride [Moles/Vol] 104 mmol/L Normal 98-107 [facility] Comment on above: Order Comment: Speci men Type: BLOOD SPECIMEN Ordering Facility: [facility] Address: [address] [place] [address] Performed By: #### 2 4323-8 #### [facility] CLIA [id number] [address] [place] [address] [place] CO2 [Moles/Vol] 24 mmol/L Normal 22-30 [facility] Comment on above: Order Comment: Speci men Type: BLOOD SPECIMEN Ordering Facility: [facility] Address: [address] [place] [address] Performed By: #### 2 4323-8 #### [facility] CLIA [id number] [address] [place] [address] [place] Creatinine [Mass/Vol] 1.38 mg/dL High 0.73-1.22 [facility] Comment on above: Order Comment: Speci men Type: BLOOD SPECIMEN Ordering Facility: [facility] Address: [address] [place] [address] Performed By: #### 2 4323-8 #### [facility] [id number] [address] [place] [address] [place] eGFRcr SerPlBld CKD-EPI 2020 51 mL/min/1.73m??? Low >=60 [facility] Comment on above: Order Comment: Speci men Type: BLOOD SPECIMEN Ordering Facility: [facility] Address: [address] [place], [place] [id number] Result Comment: Yessi mated Glomerular Filtration Rate (eGFR) is calculated using the 2020 CKD-EPI creatinine equation. This equation utilizes serum creatinine, sex, and age as parameters. The creatinine assay has traceable calibration to isotope dilution-mass spectrometry. Refer to KDIGO guidelines for clinical interpretation. In patients with unstable renal function, e.g. those with acute kidney injury, the eGFR may not accurately reflect actual GFR. Performed By: #### 2 4323-8 #### [facility] CLIA [id number] [address] [place] [address] [place] Glucose [Mass/Vol] 106 mg/dL High 74-99 [facility] Comment on above: Order Comment: Av christopher Type: BLOOD SPECIMEN Ordering Facility: [facility] Address: [address] [place] [address] Result Comment: The [place] Diabetes Association (ADA) provides guidance for cutoff values for fasting glucose and random glucose. The ADA defines fasting as no caloric intake for at least 8 hours. Fasting plasma glucose results between 100 to 125 mg/dL indicate increased risk for diabetes (prediabetes). Fasting plasma glucose results greater than or equal to 126 mg/dL meet the criteria for diagnosis of diabetes. In the absence of unequivocal hyperglycemia, results should be confirmed by repeat testing. In a patient with classic symptoms of hyperglycemia or hyperglycemic crisis, random plasma glucose results greater than or equal to 200 mg/dL meet the criteria for diagnosis of diabetes. Reference: Standards of Medical Care in Diabetes 2016, [place] [employer]. Diabetes Care. 2016.39(Suppl 1). Performed By: #### 2 4323-8 #### [facility] CLIA [id number] [address] [place] [address] [place] Potassium [Moles/Vol] 4.1 mmol/L Normal 3.7-5.1 [facility] Comment on above: Order Comment: Av christopher Type: BLOOD SPECIMEN Ordering Facility: [facility] Address: [address] [id number] Performed By: #### 2 4323-8 #### [facility] CLIA [id number] [address] [place] [address] [place] Protein [Mass/Vol] 7.1 g/dL Normal 6.3-8.0 [facility] Comment on above: Order Comment: Brookei candi Type: BLOOD SPECIMEN Ordering Facility: [facility] Address: [address] [place] [address] Performed By: #### 2 4323-8 #### [facility] [id number] [address] [place] [address] [place] Sodium [Moles/Vol] 139 mmol/L Normal 136-144 [facility] Comment on above: Order Comment: Speci men Type: BLOOD SPECIMEN Ordering Facility: [facility] Address: [address] [place] [address] Performed By: #### 2 4323-8 #### [facility] [id number] [address] [place] [address] [place] Urea nitrogen [Mass/Vol] 39 mg/dL High 9-24 [facility] Comment on above: Order Comment: Brookei men Type: BLOOD SPECIMEN Ordering Facility: [facility] Address: [address] [place] [address] Performed By: #### 2 4323-8 #### [facility] CLIA [id number] [address] [place] [address] [place] HbA1c (Bld)on 08-07-2025 Average glucose Estimated from glycated hemoglobin (Bld) [Mass/Vol] 108 mg/dL [facility] Comment on above: eAG: (Estimated aver age glucose) is a calculated value from HgbA1c and is inside sales account representative of the average blood glucose level in the last 2-3 month period. HbA1c (Bld) [Mass fraction] 5.4 % 4.3 - 5.6 % [facility] Comment on above: [place] [employer] As sociation guidelines indicate that patients with HgbA1c in the range 5.7-6.4% are at increased risk for development of diabetes, and intervention by lifestyle modification may be beneficial. HgbA1c greater or equal to 6.5% is considered diagnostic of diabetes. [facility] Average glucose Estimated from glycated hemoglobin (Bld) [Mass/Vol] 108 mg/dL Normal [facility] Comment on above: Order Comment: Av christopher Type: BLOOD SPECIMEN Ordering Facility: [facility] Address: [address] [place] [address] Result Comment: eAG: (Estimated average glucose) is a calculated value from HgbA1c and is inside sales account representative of the average blood glucose level in the last 2-3 month period. Performed By: #### 5 5454-3 #### [facility] CLIA [id number] [address] [place] [address] [place] HbA1c (Bld) [Mass fraction] 5.4 % Normal 4.3-5.6 [facility] Comment on above: Order Comment: Av christopher Type: BLOOD SPECIMEN Ordering Facility: [facility] Address: [address] [place] [address] Result Comment: [place] Diabetes Association guidelines indicate that patients with HgbA1c in the range 5.7-6.4% are at increased risk for development of diabetes, and intervention by lifestyle modification may be beneficial. HgbA1c greater or equal to 6.5% is considered diagnostic of diabetes. Performed By: #### 5 5454-3 #### [facility] CLIA [id number] [address] [place] [address] [place] Lipid 1996 panelon 5 Cholesterol [Mass/Vol] 191 mg/dL NINF - 200 mg/dL [facility] Comment on above: <200 mg/dL, Desirabl e 200-239 mg/dL, Borderline high >239 mg/dL, High Cholesterol in HDL [Mass/Vol] 41 mg/dL 39 - PINF mg/dL [facility] Comment on above: 40-59 mg/dL, Accepta ble >59 mg/dL, High: Negative risk factor for coronary heart disease <40 mg/dL, Low: Positive risk factor for coronary heart disease Cholesterol in LDL [Mass/Vol] 119 mg/dL High NINF - 100 mg/dL [facility] Comment on above: <100 mg/dL, Optimal 100-129 mg/dL, Near optimal/above optimal 130-159 mg/dL, Borderline high 160-189 mg/dL, High >189 mg/dL, Very high Secondary prevention optimal LDL Cholesterol levels are recommended to be <70 mg/dL LDL cholesterol is calculated using the Love-NIH equation. Cholesterol in LDL/Cholesterol in HDL [Mass ratio] 2.90 {ratio} High NINF - 2.54 [facility] Comment on above: Reference: 1. National Cholesterol Education Program ATP III Guideline At-A-Glance Quick Desk Reference: National Heart, Lung, and Blood Minerva. National Institutes of Health. 2001: NIH Publication No. 01-3305. 2. An International Atherosclerosis Society position paper: global recommendations for the management of dyslipidemia: executive summary, Atherosclerosis. 2014: 232(2):410-413. Cholesterol in VLDL [Mass/Vol] 31 mg/dL High NINF - 30 mg/dL [facility] Cholesterol non HDL [Mass/Vol] 150 mg/dL High NINF - 130 mg/dL [facility] Comment on above: <130 mg/dL, Optimal 130-159 mg/dL, Near optimal/above optimal 160-189 mg/dL, Borderline high 190-219 mg/dL, High >219 mg/dL, Very high Secondary prevention optimal non HDL Cholesterol levels are recommended to be <100 mg/dL Cholesterol.total/Choles terol in HDL [Mass ratio] 4.66 {ratio} NINF - 5.10 [facility] Fasting Time 12 hrs [facility] Interpretation and review of laboratory results Abnormal [facility] Triglyceride [Mass/Vol] 177 mg/dL High NINF - 150 mg/dL [facility] Comment on above: <150 mg/dL, Normal 150-199 mg/dL, Borderline high 200-499 mg/dL, High >499 mg/dL, Very high [facility] Cholesterol [Mass/Vol] 191 mg/dL Normal <200 [facility] Comment on above: Order Comment: Speci men Type: BLOOD SPECIMEN Ordering Facility: [facility] Address: [address] [place] [address] Result Comment: <200 mg/dL, Desirable 200-239 mg/dL, Borderline high >239 mg/dL, High Performed By: #### 2 4331-1 #### [facility] CLIA [id number] [address] [place] [address] [place] [facility] CLIA [id number] [address] [place] [address] [place] Cholesterol in HDL [Mass/Vol] 41 mg/dL Normal >39 [facility] Comment on above: Order Comment: Speci men Type: BLOOD SPECIMEN Ordering Facility: [facility] Address: [address] [place] [address] Result Comment: 40-5 9 mg/dL, Acceptable >59 mg/dL, High: Negative risk factor for coronary heart disease <40 mg/dL, Low: Positive risk factor for coronary heart disease Performed By: #### 2 4331-1 #### [facility] CLIA [id number] [address] [place] [address] STATES [facility] [id number] [address] [place] [address] [place] Cholesterol in LDL [Mass/Vol] 119 mg/dL High <100 [facility] Comment on above: Order Comment: Av christopher Type: BLOOD SPECIMEN Ordering Facility: [facility] Address: [address] [place] [address] Result Comment: <100 mg/dL, Optimal 100-129 mg/dL, Near optimal/above optimal 130-159 mg/dL, Borderline high 160-189 mg/dL, High >189 mg/dL, Very high Secondary prevention optimal LDL Cholesterol levels are recommended to be <70 mg/dL LDL cholesterol is calculated using the Love-NIH equation. Performed By: #### 2 4331-1 #### [facility] CLIA [id number] [address] [place] [address] [place] [facility] CLIA [id number] [address] [place] [address] [place] Cholesterol in LDL/Cholesterol in HDL [Mass ratio] 2.90 {ratio} High <2.54 [facility] Comment on above: Order Comment: Speci men Type: BLOOD SPECIMEN Ordering Facility: [facility] Address: [address] [place] [address] Result Comment: Floyd zambrano: 1. National Cholesterol Education Program ATP III Guideline At-A-Glance Quick Desk Reference: National Heart, Lung, and Blood Minerva. National Institutes of Health. 2001: NIH Publication No. 01-3305. 2. An International Atherosclerosis Society position paper: global recommendations for the management of dyslipidemia: executive summary, Atherosclerosis. 2014: 232(2):410-413. Performed By: #### 2 4331-1 #### [facility] CLIA [id number] [address] [place] [address] STATES OF [facility] CLIA [address] [place] [address] [place] Cholesterol in VLDL [Mass/Vol] 31 mg/dL High <30 [facility] Comment on above: Order Comment: Av men Type: BLOOD SPECIMEN Ordering Facility: [facility] Address: [address] [place] [address] Performed By: #### 2 4331-1 #### [facility] CLIA [id number] [address] [place] [address] [place] [facility] CLIA [id number] [place] [address] [place] Cholesterol non HDL [Mass/Vol] 150 mg/dL High <130 [facility] Comment on above: Order Comment: Av men Type: BLOOD SPECIMEN Ordering Facility: [facility] Address: [address] [place] [address] Result Comment: <130 mg/dL, Optimal 130-159 mg/dL, Near optimal/above optimal 160-189 mg/dL, Borderline high 190-219 mg/dL, High >219 mg/dL, Very high Secondary prevention optimal non HDL Cholesterol levels are recommended to be <100 mg/dL Performed By: #### 2 4331-1 #### [facility] CLIA [id number] [address] [place] [address] [place] [facility] CLIA [id number] [address] [place] [address] [place] Cholesterol.total/Choles terol in HDL [Mass ratio] 4.66 {ratio} Normal <5.10 [facility] Comment on above: Order Comment: Speci men Type: BLOOD SPECIMEN Ordering Facility: [facility] Address: [address] [place] [address] Performed By: #### 2 4331-1 #### [facility] CLIA [id number] [address] [place] [address] [place] [facility] CLIA [id number] [address] [place] [address] [place] FASTING TIME 12 hrs Normal [facility] Comment on above: Order Comment: Speci men Type: BLOOD SPECIMEN Ordering Facility: [facility] Address: [address] [place] [address] Performed By: #### 2 4331-1 #### [facility] CLIA [id number] [address] [place] [address] [place] [facility] CLIA [id number] [address] [place] [address] [place] Triglyceride [Mass/Vol] 177 mg/dL High <150 [facility] Comment on above: Order Comment: Speci men Type: BLOOD SPECIMEN Ordering Facility: [facility] Address: [address] [place], [place] [address] Result Comment: <150 mg/dL, Normal 150-199 mg/dL, Borderline high 200-499 mg/dL, High >499 mg/dL, Very high Performed By: #### 2 4331-1 #### [facility] CLIA [id number] [address] [place] [address] [place] [facility] CLIA [id number] [address] [place] [address] [place] PSA/PROSTATE SPECIFIC ANTIGE N SCREENINGon 08-07-2025 Interpretation and review of laboratory results Normal [facility] Prostate specific Ag [Mass/Vol] 1.46 ng/mL NINF - 2.60 ng/mL [facility] Comment on above: Total PSA test metho dology used is the Electrochemiluminescence Immunoassay by [employer]. Total PSA values by differing methodologies cannot be interchanged. [facility] Prostate specific Ag [Mass/Vol] 1.46 ng/mL Normal <2.60 [facility] Comment on above: Order Comment: Speci men Type: BLOOD SPECIMEN Ordering Facility: [facility] Address: [address] [place] [address] Result Comment: Tota l PSA test methodology used is the Electrochemiluminescence Immunoassay by [employer]. Total PSA values by differing methodologies cannot be interchanged. Performed By: #### P SAS1 #### [facility] CLIA [id number] [address] [place], [place] [address] [address] [place] CNOVon 08-06-2025 CNOV Office Visit (F[facility]MAS ) -------- KERWIN ALVARADO ([id number]) 1940 M Date Time Provider Department 08/06/25 10:30 AM RADHA MERINO During your visit today, we recorded the following information about you: Temperature Pulse Respiration Blood pressure 98 degrees 67/minute 16/minute 128/78 Weight Height 101.2 kg 1.753 m Lorri Campbell LPN 08/07/2025 1:53 PM Signed Kerwin is here today for his annual Medicare wellness exam RSV Vaccine(1 - 1-dose 75+ series) Never done Pneumococcal Vaccine: 50+(2 of 2 - PCV20 or PCV21) due on 08/30/2020 Advance Directive Discussion due on 11/22/2024 patient states he has this done and is unsure if [facility] has a copy of it Medicare Annual Wellness Visit due on 07/26/2025 Influenza Vaccine(1) due on 07/23/2025 Depression Screening due on 07/26/2025 Anxiety Screening due on 07/26/2025 Patient will discuss vaccines with Dr Angelique Suresh does need 5 refills Lorri Campbell LPN August 06, 2025 10:59 AM Radha Merino MD 08/07/2025 1:53 PM Signed Subjective Kerwin Alvarado is a 85 year old male. Presents today for his Medicare wellness visit. Additionally follows up for multiple medical problems. See list. His chronic medical problems have been stable. His blood pressure has been under good control on his current regimen. Cholesterol is well-controlled previously on statin. 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 Patient has a history of fatty liver for which she is being treated with Rezdiffra. Review of Systems Constitutional: Negative. HENT: Negative. Eyes: Negative. Respiratory: Negative. Cardiovascular: Negative. Gastrointestinal: Negative. Endocrine: Negative. Genitourinary: Negative. Musculoskeletal: Negative. Skin: Negative. Allergic/Immunologic: Negative. Neurological: Negative. Hematological: Negative. Psychiatric/Behavioral: Negative. 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 sildenafil (REVATIO) 20 mg tablet Take 1 tablet by mouth as needed. 2 tablets 1 hour before sexual activity cyanocobalamin (VITAMIN B-12) 100 mcg tab Take 100 mcg by mouth once daily. vit A/vit C/vit E/zinc/copper (ICAPS AREDS ORAL) Take by mouth. Preservation MULTIVITAMIN TAB Take one(1) tablet daily. Valsartan-hydroCHLOROthi azide 320-25 mg per tablet Take 1 tablet by mouth once daily. omeprazole (PRILOSEC) 20 mg capsule Take 1 capsule by mouth once daily. fenofibrate nanocrystallized (TRICOR) 48 mg tablet Take 1 tablet by mouth once daily. DULoxetine DR (CYMBALTA) 30 mg capsule Take 1 capsule by mouth once daily. allopurinol (ZYLOPRIM) 100 mg tablet Take 2 tablets by mouth once daily. Allergies, past surgical history, family history and past medical history were reviewed per this encounter. Medications were reviewed and verified. 01/22/2025 08/01/2025 INTAKE PAIN ASSESSMENT Are you having pain associated with your visit today? No No If pain assessment is 0, no action needed. If pain assessment is positive, please see assessment and plain. Objective BP 128/78 (BP Site: Left Arm, BP Position: Sitting, BP Cuff Size: Regular Adult) Pulse 67 Temp 36.7 ?C (98 ?F) (Temporal) Re (more content not included)... Normal [facility] Neurology Visit Reporton Neurology Visit Report [facility] [address] [facility] [address], [address] [place] [address] OFFICE VISIT Date of Service: 07/31/25 MR#: [id number] Acct: [id number] Name: KERWIN ALVARADO Rep #: [id number] : 1940 Provider: Dr. Radha hansen MD Age/Sex: 85/M Location: [facility]. Status: Signed [facility] Chief Complaint: Details: Interim History: Kerwin returns for follow-up visit. He has a history of hypertension, hyperlipidemia, gout and nonrheumatic mitral valve insufficiency. Since 2014, he has been experiencing burning discomfort in his lower extremities below the knees (localized to the shins) which is most pronounced at night. He noted heaviness in the legs when walking and reported that his left leg feels weak. He also has bilateral hip pain and low back pain. His left hip pain radiates to the left groin. His chronic low back pain and hip pain as well as distal left lower extremity pain were worsened with extended walking. In the past, he had right lower extremity radicular pain extending to the knee. He had a dorsal column stimulator placed in May 2024 and this has been of benefit for his bilateral lower extremity pain. He saw an orthopedic floor specialist, Dr. Nguyễn, a lumbar MRI revealed multilevel degenerative joint/disc disease and ligamentum flavum hypertrophy; severe central canal stenosis was noted at L4-5 and L5-S1. Multilevel moderate to severe bilateral foraminal stenosis was noted. Surgical intervention was not recommended. He was referred to a size painter, Dr. Huggins. Duloxetine 30 mg daily was initiated (duloxetine 60 mg was not well-tolerated due to a side effect of urinary retention). He now reports he is no longer experiencing sciatica. He denies having any current limitation in his walking at this time. He previously discontinued simvastatin for 2 weeks, did not have improvement in symptoms and then resumed this medication. Aleve was of modest benefit. He no longer takes diclofenac. He uses acetaminophen. In January 2024, he had acute colonic bleeding secondary to diverticulosis and constipation and required blood transfusions. Bilateral ABIs in 2019 were unremarkable. EMG/nerve conduction studies lower extremities in 2019 revealed electrophysiologic evidence compatible with bilateral, chronic, L5 radiculopathies; there is no active denervation to suggest ongoing axonal loss; in addition, there is no electrophysiologic evidence of a superimposed large fiber peripheral polyneuropathy or peroneal neuropathy in either lower extremity. Skin biopsy for epidermal nerve fiber density revealed reduced epidermal nerve fiber density, consistent with small fiber neuropathy. He has had bilateral knee arthroscopic surgery in the past. He had had abnormal serum free light chains. Serum and urine immunofixation in 2019 did not reveal monoclonality. Pregabalin 75 mg daily for his neuropathic pain was not effective. Cyclobenzaprine (caused vivid dreams), gabapentin 300 mg twice daily (caused gait imbalance) and amitriptyline (for neuropathic pain and insomnia (caused daytime somnolence) were not well tolerated. He he has been experiencing intermittent tingling discomfort in the hands that at times radiates to his shoulders. The use of wrist splints at night was not of benefit. He stated that he is at times able to elicit his hand tingling by flexing his neck forward and he states that his hand tingling is sometimes elicited when he sleeps with his neck bent in certain positions. He, however, denied having neck pain. He received chiropractic therapy in 2023 and has had resultant improvement of his bilateral hand symptoms. Wrist splints were of only modest benefit. EMG/nerve conduction studies of the upper extremities reveal bilateral moderate carpal tunnel syndrome. He has seen an orthopedic surgeon, Dr. Mendoza; a lumbar injection was not of benefit for his back pain. The dorsal column stimulator was placed by Dr. Mendoza. Pelvic and hip x-rays in 2021 revealed mild degenerative joint disease of both hips. He has bilateral hip pain. Physical Exam: Neuro: The patient is awake and alert and responds appropriately; motor strength is 5/5 in the abductor pollicis brevis bilaterally, first dorsal interosseous bilaterally, quadriceps bilaterally, and foot dorsiflexors bilaterally; gait is normal Neck: No bruits Heart: Regular rate and rhythm Supplemental Info X-ray of sacrum/coccyx (01/01/2016): There is degenerative arthrosis of the bilateral sacroiliac joints. There is no evidence of fracture. Echocardiogram (06/20/2018): The estimated ejection fraction is 65 %. Normal diastology for age. The left atrium is moderately enlarged. Trivial mitral valve insufficiency. Trivial tricuspid valve insufficiency. Right ventricular systolic pressure estimated to be 37 mmHg. Mild (1+) aortic valve insufficiency. Compared to echo report (more content not included)... Normal [facility] Orthopedic Visit Reporton 03 -25-2025 Orthopedic Visit Report [facility] [address] [place] [address] OFFICE VISIT Date of Service: 02/13/25 MR#: [id number] Acct: [id number] Name: KERWIN ALVARADO Rep #: [id number] : 1940 Provider: Dr. Luis Nguyễn MD Age/Sex: 84/M Location: [facility] Status: Signed Intake Vital Signs 01/11/25 13:21 01/31/25 08:36 Height 5 ft 8 in 5 ft 8 in Weight: 227 lb BMI 34.4 BP 155/74 H Blood Pressure Location Rt brachial Position Sitting Respiration 16 Pulse 78 Pulse Source Monitor Temp 97.7 F L Temp Source Oral Pulse Oximetry (%) 93 Oxygen Delivery Method room air Intake Visit Reasons: LUMBAR SPINE Chief Complaint: Lumbar spine MRI Review Is patient in pain?: Yes (lumbar spine) Pain scale (1-10): 5 Allergies No Known Allergies Allergy (Verified 02/13/25 08:59) Medications ???Medication ???Instructions ???Recorded ???Confirmed ???Type cyanocobalamin (vitamin B-12) 1,000 mcg PO QDAY 06/08/18 5 History 1,000 mcg tablet (Vitamin B-12) multivitamin 1 tab PO QDAY 06/08/18 02/13/25 Hi story omeprazole 20 mg capsule,delayed 20 mg PO QDAY 06/08/18 02/13/25 Hi story release valsartan 320 1 tab PO QHS 06/08/18 02/13/25 His tory mg-hydrochlorothiazide 25 mg tablet (Diovan HCT) allopurinol 100 mg tablet 100 mg PO BID 06/13/18 02/13/25 Hi story vit C 250 mg-vit E 90 mg-zinc 40 2 tab PO DAILY 09/23/20 02/13/25 H istory mg-copper 1 rs-bowxao-uvokca capsule (PreserVision AREDS-2) sildenafil (pulm.hypertension) 20 20 mg PO Q24H PRN sexual activity 09/29/21 02/13/25 History mg tablet cholecalciferol (vitamin D3) 125 125 mcg PO DAILY 06/01/24 02/13/25 History mcg (5,000 unit) tablet (Vitamin D3) resmetirom 100 mg tablet 100 mg PO QDAY #30 tabs 10/09/24 0 02/13/25 Rx (Rezdiffra) fenofibrate nanocrystallized 48 mg 48 mg PO QHS 1 month #30 tabs 02/13/25 Rx tablet Have you fallen in the past year?: No PFSH Medical History Wears glasses Cancer Prostate disease Low iron High cholesterol Neuropathic arthritis NAFLD (nonalcoholic fatty liver disease) History of hiatal hernia History of GI bleed History of diverticulitis Gastric reflux Non-smoker Shortness of breath on exertion Leg cramps History of edema History of echocardiogram History of stress test Cardiology follow-up encounter Segmental dysfunction of lumbar region Segmental dysfunction of cervical region Anemia Obesity Essential hypertension Spinal stenosis at L4-L5 level Low back pain without sciatica Diastasis recti Surgical History History of knee surgery Hx of right cataract extraction Hx of left cataract extraction History of esophagogastroduodenosco py (EGD) Hx of parathyroidectomy History of tonsillectomy and adenoidectomy History of cystoscopy (02/2008) Family History Father Dementia Mother Atrial fibrillation Sister Cancer Breast Social History Smoking Status: Never smoker second hand exposure: No alcohol intake: current alcohol intake frequency: a few times a week Alcohol type: wine substance use type: does not use caffeine: Yes Type: coffee Number of servings: 3 what type of physical activity do you participate in: none maria fernanda/buddhism: Muslim seatbelt use: always HPI LUMBAR SPINE Details: This documentation accurately reflects the service provided and the decisions made by me, Dr. Luis Nguyễn MD 02/13/25 0253. Part of today???s visit was documented by Aracely Bejarano, acting as scribe. KERWIN ALVARADO is a 84 year old M here today for lumbar spine MRI review. He reports the pain is progressively getting worse over the last few weeks. He reports weakness in his right leg, especially in the morning. He denies numbness and tingling into his BLE. He would like to discuss MRI and next steps. He states walking long distances is still difficult for him due to the pain and weakness. He has not fallen but he feels as though he could because of the weakness. He has experienced some buckling in the right leg and he states this is associated with weakness. Denies any use of a cane/walker but did recently purchase a cane to use with upcoming trip. No new treatments or physical therapy since his last visit. Denies any abdominal surgery but did have a colon bleed about a year ago. Denies any major surgery over last 5-10 years. No heart/lung issues. Not currently taking any blood thinners. Non-diabetic. 01/11/25: KERWIN ALVARADO is a 84 year old M here today for lumbar spine pain. Patient states the back has been bothering (more content not included)... Normal [facility] Magnetic resonance imaging r eportOrdered By: Rosi Esparza on 02-12-2025 Study report [facility] [address] [place] [address] Spine Lumbar (Routine) MR#: [id number] Acct: [id number] Name: KERWIN ALVARADO Rep #: [id number] : 1940 M 84 From: Esther Esparza MD PCP: Dr. Radha Merino MD Status: REG CLI Study:Spine Lumbar (Routine) Date of Exam: 02/10/25 Exam# [id number] Ordering Dr: Luz Elena Nguyễn MD PROCEDURE: SPINE LUMBAR (ROUTINE) 02/10/2025 REASON FOR EXAM: 84-year-old male, history of spondylolisthesis, low back pain, right-sided difficulty with walking. TECHNIQUE: Multiplaner MRI of the lumbar spine performed without contrast. Multiple pulse sequences were obtained. COMPARISON: MRI L-spine 06/21/2023. FINDINGS: Vertebrae: Mild chronic L2 and L5 vertebral body height loss. Alignment: Grade 1 retrolisthesis of L2 onto L3, grade 1 anterolisthesis of L4 onto L5, and grade 1 anterolisthesis of L5 onto S1. Conus Medullaris: Terminates of the L2 vertebral body. L1-2: Mild disk space narrowing without significant central stenosis. Mild bilateral neural foraminal stenosis. L2-3: Severe degenerative disc disease. Disk bulging, ligamentum flavum hypertrophy and facet hypertrophy cause severe central canal and severe right and moderate left neural foraminal stenosis. L3-4: Severe degenerative disc disease. Disk bulging, ligamentum flavum hypertrophy and facet hypertrophy cause severe central canal and severe bilateral neural foraminal stenosis. L4-5: Mild degenerative disc disease, in combination with listhesis, ligamentum flavum hypertrophy and facet hypertrophy resulting in severe central canal and severe bilateral neural foraminal stenosis. L5-S1: Severe degenerative disc disease. Disk bulging, ligamentum flavum hypertrophy and facet hypertrophy cause severe central canal and moderate bilateral neural foraminal stenosis. Sacrum: The SI joints are grossly unremarkable. Partially visualized neural stimulator battery pack within the left posterior soft tissues. Partially visualized horseshoe kidney. MRI/Spine Lumbar (Routine) IMPRESSION: Severe multilevel central and neural foraminal stenosis as described. Stable lumbar listhesis as described. Reading Location: [facility] CC: Dr. Luis Nguyễn MD; Dr. Radha Merino MD ~ Speech Coach: Signed [facility] Spine Lumbar (Routine)on Spine Lumbar (Routine) [facility] [address] [place], [place] [id number] Spine Lumbar (Routine) MR#: [id number] Acct: [id number] Name: KERWIN ALVARADO Rep #: [id number] : 1940 84 From: Rosi Urbano nd, MD PCP: Dr. Radha Merino MD Status: REG CLI Study: Spine Lumbar (Routine) Date of Exam: 02/10/25 Exam# [id number] Ordering Dr: Luis Nguyễn MD PROCEDURE: SPINE LUMBAR (ROUTINE) 02/10/2025 REASON FOR EXAM: 84-year-old male, history of spondylolisthesis, low back pain, right-sided difficulty with walking. TECHNIQUE: Multiplaner MRI of the lumbar spine performed without contrast. Multiple pulse sequences were obtained. COMPARISON: MRI L-spine 06/21/2023. FINDINGS: Vertebrae: Mild chronic L2 and L5 vertebral body height loss. Alignment: Grade 1 retrolisthesis of L2 onto L3, grade 1 anterolisthesis of L4 onto L5, and grade 1 anterolisthesis of L5 onto S1. Conus Medullaris: Terminates of the L2 vertebral body. L1-2: Mild disk space narrowing without significant central stenosis. Mild bilateral neural foraminal stenosis. L2-3: Severe degenerative disc disease. Disk bulging, ligamentum flavum hypertrophy and facet hypertrophy cause severe central canal and severe right and moderate left neural foraminal stenosis. L3-4: Severe degenerative disc disease. Disk bulging, ligamentum flavum hypertrophy and facet hypertrophy cause severe central canal and severe bilateral neural foraminal stenosis. L4-5: Mild degenerative disc disease, in combination with listhesis, ligamentum flavum hypertrophy and facet hypertrophy resulting in severe central canal and severe bilateral neural foraminal stenosis. L5-S1: Severe degenerative disc disease. Disk bulging, ligamentum flavum hypertrophy and facet hypertrophy cause severe central canal and moderate bilateral neural foraminal stenosis. Sacrum: The SI joints are grossly unremarkable. Partially visualized neural stimulator battery pack within the left posterior soft tissues. Partially visualized horseshoe kidney. MRI/Spine Lumbar (Routine) IMPRESSION: Severe multilevel central and neural foraminal stenosis as described. Stable lumbar listhesis as described. Reading Location: [facility] CC: Dr. Luis Nguyễn MD; Dr. Radha Merino MD Speech Coach: Signed Normal [facility] Gastroenterology Visit Repor ton 01-31-2025 Gastroenterology Visit Report [facility] [address] [place] [address] OFFICE VISIT Date of Service: 01/31/25 MR#: [id number] Acct: [id number] Name: KERWIN ALVARADO Rep #: [id number] : 1940 Provider: Dr. Faisal harper MD Age/Sex: 84/M Location: [facility] Status: Signed Intake Vital Signs 10/06/24 09:57 01/11/25 13:21 01/31/25 08:36 Height 5 ft 8 in 5 ft 8 in 5 ft 8 in Weight: 224 lb 227 lb BMI 34.0 34.4 BP 132/76 H 155/74 H Blood Pressure Location Rt brachial Rt brachial Position Sitting Sitting Respiration 16 Pulse 79 78 Pulse Source Monitor Monitor Temp 97.7 F L Temp Source Oral Pulse Oximetry (%) 96 93 Oxygen Delivery Method room air room air Intake Visit Reasons: 4 M FU Multiple Wire Sawyer Required: No Accompanied by: Self Is patient in pain?: Yes (low back) Pain scale (1-10): 5 Allergies No Known Allergies Allergy (Verified 01/31/25 08:38) Medications ???Medication ???Instructions ???Recorded ???Confirmed ???Type cyanocobalamin (vitamin B-12) 1,000 mcg PO QDAY 06/08/18 5 History 1,000 mcg tablet (Vitamin B-12) multivitamin 1 tab PO QDAY 06/08/18 01/31/25 Hi story omeprazole 20 mg capsule,delayed 20 mg PO QDAY 06/08/18 01/31/25 Hi story release valsartan 320 1 tab PO QHS 06/08/18 01/31/25 His tory mg-hydrochlorothiazide 25 mg tablet (Diovan HCT) allopurinol 100 mg tablet 100 mg PO BID 06/13/18 01/31/25 Hi story vit C 250 mg-vit E 90 mg-zinc 40 2 tab PO DAILY 09/23/20 01/31/25 H istory mg-copper 1 zv-nebgjx-cvcjna capsule (PreserVision AREDS-2) sildenafil (pulm.hypertension) 20 20 mg PO Q24H PRN sexual activity 09/29/21 01/31/25 History mg tablet cholecalciferol (vitamin D3) 125 125 mcg PO DAILY 06/01/24 01/31/25 History mcg (5,000 unit) tablet (Vitamin D3) resmetirom 100 mg tablet 100 mg PO QDAY #30 tabs 10/09/24 0 01/31/25 Rx (Rezdiffra) fenofibrate nanocrystallized 48 mg 48 mg PO QHS 1 month #30 tabs 01/31/25 Rx tablet Have you fallen in the past year?: No PFSH Medical History Wears glasses Cancer Prostate disease Low iron High cholesterol Neuropathic arthritis NAFLD (nonalcoholic fatty liver disease) History of hiatal hernia History of GI bleed History of diverticulitis Gastric reflux Non-smoker Shortness of breath on exertion Leg cramps History of edema History of echocardiogram History of stress test Cardiology follow-up encounter Segmental dysfunction of lumbar region Segmental dysfunction of cervical region Anemia Obesity Essential hypertension Spinal stenosis at L4-L5 level Low back pain without sciatica Diastasis recti Surgical History History of knee surgery Hx of right cataract extraction Hx of left cataract extraction History of esophagogastroduodenosco py (EGD) Hx of parathyroidectomy History of tonsillectomy and adenoidectomy History of cystoscopy (02/2008) Family History Father Dementia Mother Atrial fibrillation Sister Cancer Breast Social History Smoking Status: Never smoker second hand exposure: No alcohol intake: current alcohol intake frequency: a few times a week Alcohol type: wine substance use type: does not use caffeine: Yes Type: coffee Number of servings: 3 what type of physical activity do you participate in: none maria fernanda/buddhism: Muslim seatbelt use: always HPI HPI Details: KERWIN ALVARADO, is a 84 M who presents to the office today for 4 M FU Leg Swelling, MASLD Previous workup: 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 Provider at that time mentioned could be cause of anemia; treated with reglan for two years and Kerwin reports this continues to be resolved. Colonoscopy 11.11.15 [facility] noting diverticulosis. No polyps or history of polyps *BGI established 02.05.23. Constipation has been a long-term issue with worsening in the last 3 months. Will use stool softener/stimulant to promote movement. Without intervention he has no BM or minimal BM with extensive straining; does not note blood/mucus. GES 02.11.23- Normal 39.22 CT abd/pel 02.17.23 - fatty liver, kidney stones, enlarged prostate US/Elastography 4.15.23- Liver measures 16cm 13.2 Kpa F3-F4- Rx Ursodiol OV 7.3.23 Pt is stable since last visit. Previously tried on Linzess for constipation. Was helpful at first but then developed diarrhea. Constipation is controlled now with daily stool softener. Was prescribed Ursodiol for fatty liver but has not taken it. Has several questions about fatty liver and previous work up. US abd/Elastography 9.5.23- Lulu (more content not included)... Normal [facility] Comprehensive metabolic 2000 panelon 01-30-2025 Albumin [Mass/Vol] 4.2 g/dL Normal 3.9-4.9 [facility] Comment on above: Order Comment: Speci men Type: BLOOD SPECIMEN Ordering Facility: [facility] Address: [address] [place] [address] Performed By: #### 2 4323-8 #### [facility] CLIA [id number] [address] [place] [address] [place] ALP [Catalytic activity/Vol] 102 U/L Normal 38-113 [facility] Comment on above: Order Comment: Speci men Type: BLOOD SPECIMEN Ordering Facility: [facility] Address: [address] [place] [address] Performed By: #### 2 4323-8 #### [facility] CLIA [id number] [address] [place] [address] [place] ALT [Catalytic activity/Vol] 24 U/L Normal 10-54 [facility] Comment on above: Order Comment: Speci men Type: BLOOD SPECIMEN Ordering Facility: [facility] Address: [address] [place] [address] Performed By: #### 2 4323-8 #### [facility] CLIA [id number] [address] [place] [address] [place] Anion gap [Moles/Vol] 10 mmol/L Normal 8-15 [facility] Comment on above: Order Comment: Speci men Type: BLOOD SPECIMEN Ordering Facility: [facility] Address: [address] [place] [address] Performed By: #### 2 4323-8 #### [facility] CLIA [id number] [address] [place] [address] [place] AST [Catalytic activity/Vol] 21 U/L Normal 14-40 [facility] Comment on above: Order Comment: Speci men Type: BLOOD SPECIMEN Ordering Facility: [facility] Address: [address] [place], [place] [address] Performed By: #### 2 4323-8 #### [facility] CLIA [id number] [address] [place] [address] [place] Bilirubin [Mass/Vol] 0.7 mg/dL Normal 0.2-1.3 [facility] Comment on above: Order Comment: Speci men Type: BLOOD SPECIMEN Ordering Facility: [facility] Address: [address] [place] [address] Performed By: #### 2 4323-8 #### [facility] CLIA [id number] [address] [place] [address] [place] Calcium [Mass/Vol] 9.1 mg/dL Normal 8.5-10.2 [facility] Comment on above: Order Comment: Speci men Type: BLOOD SPECIMEN Ordering Facility: [facility] Address: [address] [place] [address] Performed By: #### 2 4323-8 #### [facility] CLIA [id number] [address] [place] [address] [place] Chloride [Moles/Vol] 107 mmol/L Normal 98-107 [facility] Comment on above: Order Comment: Speci men Type: BLOOD SPECIMEN Ordering Facility: [facility] Address: [address] [place] [address] Performed By: #### 2 4323-8 #### [facility] CLIA [id number] [address] [place] [address] [place] CO2 [Moles/Vol] 23 mmol/L Normal 22-30 [facility] Comment on above: Order Comment: Av christopher Type: BLOOD SPECIMEN Ordering Facility: [facility] Address: [address] [place] [address] Performed By: #### 2 4323-8 #### [facility] CLIA [id number] [address] [place] [address] [place] Creatinine [Mass/Vol] 0.97 mg/dL Normal 0.73-1.22 [facility] Comment on above: Order Comment: vA christopher Type: BLOOD SPECIMEN Ordering Facility: [facility] Address: [address] [place] [address] Performed By: #### 2 4323-8 #### [facility] [id number] [address] [place] [address] [place] Creatinine and Glomerular filtration rate.predicted panel (S/P/Bld) 78 mL/min/1.73m??? Normal >=60 [facility] Comment on above: Order Comment: Av christopher Type: BLOOD SPECIMEN Ordering Facility: [facility] Address: [address] [place] [address] Result Comment: Yessi mated Glomerular Filtration Rate (eGFR) is calculated using the 2020 CKD-EPI creatinine equation. This equation utilizes serum creatinine, sex, and age as parameters. The creatinine assay has traceable calibration to isotope dilution-mass spectrometry. Refer to KDIGO guidelines for clinical interpretation. In patients with unstable renal function, e.g. those with acute kidney injury, the eGFR may not accurately reflect actual GFR. Performed By: #### 2 4323-8 #### [facility] [id number] [address] [place] [address] [place] Glucose [Mass/Vol] 109 mg/dL High 74-99 [facility] Comment on above: Order Comment: Av christopher Type: BLOOD SPECIMEN Ordering Facility: [facility] Address: [address] [place] [address] Result Comment: The [place] Diabetes Association (ADA) provides guidance for cutoff values for fasting glucose and random glucose. The ADA defines fasting as no caloric intake for at least 8 hours. Fasting plasma glucose results between 100 to 125 mg/dL indicate increased risk for diabetes (prediabetes). Fasting plasma glucose results greater than or equal to 126 mg/dL meet the criteria for diagnosis of diabetes. In the absence of unequivocal hyperglycemia, results should be confirmed by repeat testing. In a patient with classic symptoms of hyperglycemia or hyperglycemic crisis, random plasma glucose results greater than or equal to 200 mg/dL meet the criteria for diagnosis of diabetes. Reference: Standards of Medical Care in Diabetes 2016, [place] Diabetes Association. Diabetes Care. 2016.39(Suppl 1). Performed By: #### 2 4323-8 #### [facility] [id number] [address] [place] [address] [place] Potassium [Moles/Vol] 4.1 mmol/L Normal 3.7-5.1 [facility] Comment on above: Order Comment: Speci men Type: BLOOD SPECIMEN Ordering Facility: [facility] Address: [address] [place], [place] [address] Performed By: #### 2 4323-8 #### [facility] [id number] [address] [place] [address] [place] Protein [Mass/Vol] 7.2 g/dL Normal 6.3-8.0 [facility] Comment on above: Order Comment: Speci men Type: BLOOD SPECIMEN Ordering Facility: [facility] Address: [address] [place] [address] Performed By: #### 2 4323-8 #### [facility] [id number] [address] [place] [address] [place] Sodium [Moles/Vol] 140 mmol/L Normal 136-144 [facility] Comment on above: Order Comment: Speci men Type: BLOOD SPECIMEN Ordering Facility: [facility] Address: [address] [place] [address] Performed By: #### 2 4323-8 #### [facility] CLIA [id number] [address] [place] [address] [place] Urea nitrogen [Mass/Vol] 35 mg/dL High 9-24 [facility] Comment on above: Order Comment: Av christopher Type: BLOOD SPECIMEN Ordering Facility: [facility] Address: [address] [place] [address] Performed By: #### 2 4323-8 #### [facility] CLIA [id number] [address] [place] [address] [place] HbA1c (Bld)on 01-30-2025 Average glucose Estimated from glycated hemoglobin (Bld) [Mass/Vol] 117 mg/dL Normal [facility] Comment on above: Order Comment: Av christopher Type: BLOOD SPECIMEN Ordering Facility: [facility] Address: [address] [place] [address] Result Comment: eAG: (Estimated average glucose) is a calculated value from HgbA1c and is inside sales account representative of the average blood glucose level in the last 2-3 month period. Performed By: #### 5 5454-3 #### [facility] CLIA [id number] [address] [place] [address] [place] HbA1c (Bld) [Mass fraction] 5.7 % High 4.3-5.6 [facility] Comment on above: Order Comment: Av christopher Type: BLOOD SPECIMEN Ordering Facility: [facility] Address: [address] [place] [address] Result Comment: Amer [place] Diabetes Association guidelines indicate that patients with HgbA1c in the range 5.7-6.4% are at increased risk for development of diabetes, and intervention by lifestyle modification may be beneficial. HgbA1c greater or equal to 6.5% is considered diagnostic of diabetes. Performed By: #### 5 5454-3 #### [facility] CLIA [id number] [address] [place] [address] [place] Lipid 1996 panelon 03-11-202 5 Cholesterol [Mass/Vol] 133 mg/dL Normal <200 [facility] Comment on above: Order Comment: Speci men Type: BLOOD SPECIMEN Ordering Facility: [facility] Address: [address] [place] [address] Result Comment: <200 mg/dL, Desirable 200-239 mg/dL, Borderline high >239 mg/dL, High Performed By: #### 2 4331-1 #### [facility] CLIA [id number] [address] [place] [address] [place] [facility] CLIA [id number] [address] [place] [address] [place] Cholesterol in HDL [Mass/Vol] 37 mg/dL Low >39 [facility] Comment on above: Order Comment: Brookei men Type: BLOOD SPECIMEN Ordering Facility: [facility] Address: [address] [place] [address] Result Comment: 40-5 9 mg/dL, Acceptable >59 mg/dL, High: Negative risk factor for coronary heart disease <40 mg/dL, Low: Positive risk factor for coronary heart disease Performed By: #### 2 4331-1 #### [facility] CLIA [id number] [address] [place] [address] [place] [facility] CLIA [id number] [address] [place] Cholesterol in LDL [Mass/Vol] 62 mg/dL Normal <100 [facility] Comment on above: Order Comment: Speci men Type: BLOOD SPECIMEN Ordering Facility: [facility] Address: [address] [place] [address] Result Comment: <100 mg/dL, Optimal 100-129 mg/dL, Near optimal/above optimal 130-159 mg/dL, Borderline high 160-189 mg/dL, High >189 mg/dL, Very high Secondary prevention optimal LDL Cholesterol levels are recommended to be < 70 mg/dL Performed By: #### 2 4331-1 #### [facility] CLIA [id number] [address] [place] [address] [place] [facility] CLIA [id number] [address] [place] [address] [place] Cholesterol in LDL/Cholesterol in HDL [Mass ratio] 1.68 {ratio} Normal <2.54 [facility] Comment on above: Order Comment: Speci men Type: BLOOD SPECIMEN Ordering Facility: [facility] Address: [address] [place] [address] Result Comment: Floyd zambrano: 1. National Cholesterol Education Program ATP III Guideline At-A-Glance Quick Desk Reference: National Heart, Lung, and Blood Minerva. National Institutes of Health. 2001: NIH Publication No. 01-3305. 2. An International Atherosclerosis Society position paper: global recommendations for the management of dyslipidemia: executive summary, Atherosclerosis. 2014: 232(2):410-413. Performed By: #### 2 4331-1 #### [facility] CLIA [id number] [address] [place] [address] [place] [facility] CLIA [id number] [address] [place] [address] [place] Cholesterol in VLDL [Mass/Vol] 34 mg/dL High <30 [facility] Comment on above: Order Comment: Speci men Type: BLOOD SPECIMEN Ordering Facility: [facility] Address: [address] [place] [address] Performed By: #### 2 4331-1 #### [facility] CLIA [id number] [address] [place] [address] [place] [facility] CLIA [id number] [address] [place] [address] [place] Cholesterol non HDL [Mass/Vol] 96 mg/dL Normal <130 [facility] Comment on above: Order Comment: Speci men Type: BLOOD SPECIMEN Ordering Facility: [facility] Address: [address] [place] [address] Result Comment: <130 mg/dL, Optimal 130-159 mg/dL, Near optimal/above optimal 160-189 mg/dL, Borderline high 190-219 mg/dL, High >219 mg/dL, Very high Secondary prevention optimal non HDL Cholesterol levels are recommended to be <100 mg/dL Performed By: #### 2 4331-1 #### [facility] CLIA [id number] [address] [place] [address] [place] [facility] CLIA [id number] [address] [place] [address] [place] Cholesterol.total/Choles terol in HDL [Mass ratio] 3.59 {ratio} Normal <5.10 [facility] Comment on above: Order Comment: Speci men Type: BLOOD SPECIMEN Ordering Facility: [facility] Address: [address] [place] [address] Performed By: #### 2 4331-1 #### [facility] CLIA [id number] [address] [place] [address] [place] [facility] CLIA [id number] [address] [place] [address] [place] FASTING TIME 12 hrs Normal [facility] Comment on above: Order Comment: Speci men Type: BLOOD SPECIMEN Ordering Facility: [facility] Address: [address] [place] [address] Performed By: #### 2 4331-1 #### [facility] CLIA [id number] [address] [place] [address] [place] [facility] CLIA [id number] [address] [place] [address] [place] Triglyceride [Mass/Vol] 172 mg/dL High <150 [facility] Comment on above: Order Comment: Speci men Type: BLOOD SPECIMEN Ordering Facility: [facility] Address: [address] [place] [address] Result Comment: <150 mg/dL, Normal 150-199 mg/dL, Borderline high 200-499 mg/dL, High >499 mg/dL, Very high Performed By: #### 2 4331-1 #### [facility] CLIA [id number] [address] [place] [address] [place] [facility] CLIA [id number] [address] [place], [place] [address] [place] [address] [place] CNOVon 01-29-2025 CNOV Office Visit (FAMMAS ) -------- KERWIN ALVARADO ([id number]) 1940 M Date Time Provider Department 01/29/25 10:30 AM RADHA MERINO During your visit today, we recorded the following information about you: Temperature Pulse Respiration Blood pressure 97.3 degrees 80/minute 18/minute 124/68 Weight Height 103.4 kg 1.753 m Mary Ford LPN 01/29/2025 11:06 AM Signed Patient is in office for 6 month exam. Patient is having tenderness at bilateral nipples. Symptoms began a few months ago. Patient is also experiencing increased swelling in primarily right leg. Mary Ford LPN January 29, 2025 10:25 AM Radha Merino MD 01/29/2025 11:06 AM Signed Subjective Kerwin Alvarado is a 84 year old male.Patient presents today for follow-up for multiple medical problems. See list. His chronic medical problems been stable. He is compliant with his medications. He has been having mild swelling in his right ankle. He does have compression stockings. He is not wearing them today. He has significant low back pain. He is considering spinal fusion surgery. Blood pressure is under excellent control on current medication. Cholesterol is improved with the simvastatin. 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 Review of Systems Constitutional: Negative. HENT: Negative. Eyes: Negative. Respiratory: Negative. Cardiovascular: Negative. Gastrointestinal: Negative. Endocrine: Negative. Genitourinary: Negative. Musculoskeletal: Negative. Skin: Negative. Allergic/Immunologic: Negative. Neurological: Negative. Hematological: Negative. Psychiatric/Behavioral: Negative. PAST SURGICAL HISTORY Procedure Laterality Date COLONOSCOPY FLX DX W/COLLJ SPEC WHEN PFRMD 05/14/2005 Colonoscopy COLONOSCOPY FLX DX W/COLLJ SPEC WHEN PFRMD 11/11/2015 Colonoscopy EGD TRANSORAL BIOPSY SINGLE/MULTIPLE 11/24/2006 ORTHOPEDIC SURGERY HX OSTEOGENESIS STIM, SPINAL APPL PROSTATE NEEDLE BIOPSY ANY APPROACH Transrectal bx, prostate TONSILLECTOMY PRIMARY/SECONDARY Tonsillectomy PAST MEDICAL HISTORY Diagnosis Date Acute ethmoidal [...] of both hands 12/07/2022 Polyneuropathy 10/16/2022 Snoring FAMILY HISTORY Problem Relation Age of Onset Heart disease Mother Social History Tobacco Use Smoking status: Never Smokeless tobacco: Never Vaping Use Vaping status: Never Used Substance Use Topics Alcohol use: Yes Comment: occassionally Drug use: No ALLERGIES No Known Allergies MEDICATIONS: resmetirom (REZDIFFRA) 100 mg tablet Take 100 mg by mouth once daily. Valsartan-hydroCHLOROthi azide 320-25 mg per tablet TAKE 1 TABLET BY MOUTH ONCE DAILY simvastatin (ZOCOR) 40 mg tablet TAKE 1 TABLET BY MOUTH ONCE DAILY sodium bicarbonate 650 mg tablet Take 1 tablet by mouth three times a day. omeprazole (PRILOSEC) 20 mg capsule TAKE 1 CAPSULE BY MOUTH ONCE DAILY allopurinol (ZYLOPRIM) 100 mg tablet TAKE 2 TABLETS BY MOUTH ONCE DAILY vllomev-rfvsfgezp-ehgvlb n D3 500 mg-5 mcg (200 unit) per tablet Take 1 tablet by mouth three times a day. cyanocobalamin (VITAMIN B-12) 100 mcg tab Take 100 mcg by mouth once daily. vit A/vit C/vit E/zinc/copper (ICAPS AREDS ORAL) Take by mouth. Preservation MULTIVITAMIN TAB Take one(1) tablet daily. sildenafil (REVATIO) 20 mg tablet Take 1 tablet by mouth as needed. 2 tablets 1 hour before sexual activity Allergies, past surgical history, family history and past medical history were reviewed per this encounter. Medications were reviewed and verified. 07/22/2024 01/22/2025 INTAKE PAIN ASSESSMENT Are you having pain associated with your visit today? No No If pain assessment is 0, no action needed. If pain assessment is positive, please see assessment and plain. Objective BP 124/68 (BP Site: Left Arm, BP Position: Sitting, BP Cuff Size: Regular Adult) Pulse 80 Temp 36.3 ?C (97.3 ?F) (Temporal) Resp 18 Ht 175.3 cm (5' (more content not included)... [facility] Joe 01-29-2025 [facility] Telephone (Capt'nSocial) -------- KERWIN ALVARADO ([id number]) 1940 M Date Time Provider Department 01/29/25 RADHA MERINO During your visit today, we recorded the following information about you: Ana M Fermin MA 01/29/2025 1:59 PM Signed Items addressed in this encounter: Prior Authorization Pays out of pocket for Sildenafil Able to close encounter. Ana M Fermin MA January 29, 2025 1:58 PM 1:58 PM Allergies As of Date: 01/29/2025 (No Known Allergies) Date Reviewed: 01/29/2025 Reviewed by: Mary Ford LPN - Fully Assessed Reason for Visit: Pays out of pocket for Sildenafil [Other] Prescriptions as of 01/29/2025 - resmetirom (REZDIFFRA) 100 mg tablet Take 100 mg by mouth once daily. - sildenafil (REVATIO) 20 mg tablet Take 1 tablet by mouth as needed. 2 tablets 1 hour before sexual activity - Valsartan-hydroCHLOROthi azide 320-25 mg per tablet TAKE 1 TABLET BY MOUTH ONCE DAILY - simvastatin (ZOCOR) 40 mg tablet TAKE 1 TABLET BY MOUTH ONCE DAILY - sodium bicarbonate 650 mg tablet Take 1 tablet by mouth three times a day. - omeprazole (PRILOSEC) 20 mg capsule TAKE 1 CAPSULE BY MOUTH ONCE DAILY - allopurinol (ZYLOPRIM) 100 mg tablet TAKE 2 TABLETS BY MOUTH ONCE DAILY - ipiahvy-vzpktfouw-aohvxv n D3 500 mg-5 mcg (200 unit) per tablet Take 1 tablet by mouth three times a day. - cyanocobalamin (VITAMIN B-12) 100 mcg tab Take 100 mcg by mouth once daily. - vit A/vit C/vit E/zinc/copper (ICAPS AREDS ORAL) Take by mouth. Preservation - MULTIVITAMIN TAB Take one(1) tablet daily. 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] 08/04/2017 Polyneuropathy [G62.9] 10/16/2022 Paresthesia of both hands [R20.2] 12/07/2022 Obesity [E66.9] 12/07/2022 Nonrheumatic mitral valve regurgitation [I34.0] 12/07/2022 Neuropathy [G62.9] 10/21/2020 Macrocytosis [D75.89] 03/29/2021 Low back pain [M54.50] 12/07/2022 Intermittent claudication (HCC) [I73.9] 12/07/2022 03/16/2023 Impaired glucose tolerance [R73.02] 08/04/2017 Hypertension, benign [I10] 04/23/2011 Hyperlipidemia [E78.5] 08/04/2017 Gout [M10.9] 08/04/2017 Edema of lower extremity [R60.0] 12/07/2022 Diastasis of rectus abdominis [M62.08] 12/07/2022 Dehydration [E86.0] 05/07/2022 Constipation [K59.00] 04/06/2019 Burning sensation of feet [R20.8] 02/22/2020 Acute ethmoidal sinusitis [J01.20] 02/22/2020 Obesity, Class I, BMI 30-34.9 [E66.811] 11/11/2023 Encounter Status:Closed by ANA M FERMIN on 01/29/25 [facility] L/S Spine Min 4 Viewson 12-24 0 L/S Spine Min 4 Views [facility] [address] [place] [id number] L/S Spine Min 4 Views MR#: [id number] Acct: [id number] Name: KERWIN ALVARADO Rep #: [id number] : 1940 M 84 From: Elian Luna i, DO PCP: Dr. Radha Merino MD Status: DEP AMB Study: L/S Spine Min 4 Views Date of Exam: 01/11/25 Exam# [id number] Ordering Dr: Yumiko Otero PROCEDURE: Lumbar spine radiographs, four views REASON FOR EXAM: Pain TECHNIQUE: Four views of the lumbar spine were obtained. COMPARISON: None. FINDINGS: Four views of the lumbar spine were obtained. Bones are osteopenic. Included portions of the pelvis and SI joints are intact. Moderate degenerative changes of the hip joints. An electronic device projects over the posterior mid lumbar soft tissues. No acute lumbar vertebral body fracture. There is chronic appearing mild height loss/anterior wedging of T11 and T12. On the neutral lateral projection, there is grade 1 retrolisthesis of L2 relative to L3, grade 1 anterolisthesis of L4 relative to L3 and L5, and grade 1 anterolisthesis of L5 relative to S1. Moderate atherosclerotic calcification of the lower abdominal aorta. No evidence of significant instability on flexion and extension views. RAD/L/S Spine Min 4 Views IMPRESSION: Osteopenia. No acute bony abnormality of the lumbar spine. 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 No evidence of instability on flexion and extension views. Reading Location: [facility] CC: JAIME Rasmussen; Dr. Radha Merino MD Speech Coach: Signed Normal [facility] Orthopedic Visit Reporton Orthopedic Visit Report [facility] [place] [address] OFFICE VISIT Date of Service: 01/11/25 MR#: [id number] Acct: [id number] Name: KERWIN ALVARADO Rep #: [id number] : 1940 Provider: Dr. Luis Nguyễn MD Age/Sex: 84/M Location: [facility] Status: Signed Intake Vital Signs 10/06/24 09:57 01/11/25 13:21 Height 5 ft 8 in 5 ft 8 in Weight: 224 lb 228 lb 8 oz BMI 34.0 34.7 BP 132/76 H Blood Pressure Location Rt brachial Position Sitting Pulse 79 Pulse Source Monitor Pulse Oximetry (%) 96 Oxygen Delivery Method room air Intake Visit Reasons: LUMBAR SPINE Chief Complaint: Lumbar spine pain Accompanied by: Is patient in pain?: Yes Pain scale (1-10): 4 Allergies No Known Allergies Allergy (Verified 01/11/25 13:22) Medications ???Medication ???Instructions ???Recorded ???Confirmed ???Type cyanocobalamin (vitamin B-12) 1,000 mcg PO QDAY 06/08/18 5 History 1,000 mcg tablet (Vitamin B-12) multivitamin 1 tab PO QDAY 06/08/18 01/11/25 Hi story omeprazole 20 mg capsule,delayed 20 mg PO QDAY 06/08/18 01/11/25 Hi story release simvastatin 40 mg tablet 40 mg PO QPM 06/08/18 01/11/25 His tory valsartan 320 1 tab PO QHS 06/08/18 01/11/25 His tory mg-hydrochlorothiazide 25 mg tablet (Diovan HCT) allopurinol 100 mg tablet 100 mg PO BID 06/13/18 01/11/25 Hi story vit C 250 mg-vit E 90 mg-zinc 40 2 tab PO DAILY 09/23/20 01/11/25 H istory mg-copper 1 gj-vmrlem-ooovdi capsule (PreserVision AREDS-2) sildenafil (pulm.hypertension) 20 20 mg PO Q24H PRN sexual activity 09/29/21 01/11/25 History mg tablet cholecalciferol (vitamin D3) 125 125 mcg PO DAILY 06/01/24 01/11/25 History mcg (5,000 unit) tablet (Vitamin D3) resmetirom 100 mg tablet 100 mg PO QDAY #30 tabs 10/09/24 0 01/11/25 Rx (Rezdiffra) Have you fallen in the past year?: No PFSH Medical History (Updated 01/11/25 @ 16:[address] Luis Nguyễn MD) Wears glasses Cancer Prostate disease Low iron High cholesterol Neuropathic arthritis NAFLD (nonalcoholic fatty liver disease) History of hiatal hernia History of GI bleed History of diverticulitis Gastric reflux Non-smoker Shortness of breath on exertion Leg cramps History of edema History of echocardiogram History of stress test Cardiology follow-up encounter Segmental dysfunction of lumbar region Segmental dysfunction of cervical region Anemia Obesity Essential hypertension Spinal stenosis at L4-L5 level Low back pain without sciatica Diastasis recti Hyperlipidemia Surgical History (Updated 01/11/25 @ 13:28 by Sissy Pollack) History of knee surgery Hx of right cataract extraction Hx of left cataract extraction History of esophagogastroduodenosco py (EGD) Hx of parathyroidectomy History of tonsillectomy and adenoidectomy History of cystoscopy (02/2008) Family History (Updated 01/11/25 @ 13:24 by Sissy Pollack) Father Dementia Mother Atrial fibrillation Sister Cancer Breast Social History Smoking Status: Never smoker second hand exposure: No alcohol intake: current alcohol intake frequency: a few times a week Alcohol type: wine substance use type: does not use caffeine: Yes Type: coffee Number of servings: 3 what type of physical activity do you participate in: none maria fernanda/buddhism: Muslim seatbelt use: always HPI LUMBAR SPINE Details: This documentation accurately reflects the service provided and the decisions made by me, Dr. Luis Nguyễn MD 01/11/25 1317. Part of today???s visit was documented by Sissy Herrera ATC, acting as scribe. KERWIN ALVARADO is a 84 year old M here today for lumbar spine pain. Patient states the back has been bothering him for about 20 years or so and it has progressively gotten worse. He states it has been described as a lot of arthritis at the base of the spine. He did have a spinal stimulator inserted in May 2024. He states the stimulator does give him relief but it does not completely solve his issues. Patient describes the pain primarily in the center of the spine and slightly off to the right side. He states the pain was on the left side of the spine prior to the stimulator. He does get radiating pain into the right leg. He denies any numbness/tingling. Patient states the left leg has always seem weaker than the right. He states he has noticed this for about 20-30 years. He does have sciatica on the right leg. Patient does have trouble getting into the car. Patient did have 1 steroid injection to the lumbar spine and it did not give him any relief. This was March [address] Mendoza. Patient did go to a couple sessions of physical therapy and he tried a HEP. Patient stat (more content not included)... Normal [facility] Gastroenterology Visit Repor ton 10-06-2024 Gastroenterology Visit Report [facility] [address] [place] [address] OFFICE VISIT Date of Service: 10/06/24 MR#: [id number] Acct: [id number] Name: KERWIN ALVARADO Rep #: [id number] : 1940 Provider: Dr. Faisal harper MD Age/Sex: 84/M Location: [facility] Status: Signed Intake Vital Signs 06/15/24 12:28 08/01/24 08:29 10/06/24 09:57 Height 5 ft 8 in 5 ft 8 in 5 ft 8 in Weight: 225 lb 224 lb BMI 34.2 34.0 BP 152/70 H 132/76 H Blood Pressure Location Lt brachial Rt brachial Position Sitting Sitting Respiration 17 Pulse 72 79 Pulse Source Monitor Monitor Temp 97.5 F L Temp Source Temporal Pulse Oximetry (%) 96 96 Oxygen Delivery Method room air room air Intake Visit Reasons: 6 M FU Chief Complaint: Allergies No Known Allergies Allergy (Verified 10/06/24 09:59) Medications ???Medication ???Instructions ???Recorded ???Confirmed ???Type cyanocobalamin (vitamin B-12) 1,000 mcg PO QDAY 06/08/18 10/06/24 History 1,000 mcg tablet (Vitamin B-12) multivitamin 1 tab PO QDAY 06/08/18 10/06/24 History omeprazole 20 mg capsule,delayed 20 mg PO QDAY 06/08/18 10/06/24 History release simvastatin 40 mg tablet 40 mg PO QPM 06/08/18 10/06/24 History valsartan 320 1 tab PO QHS 06/08/18 10/06/24 History mg-hydrochlorothiazide 25 mg tablet (Diovan HCT) allopurinol 100 mg tablet 100 mg PO BID 06/13/18 10/06/24 History vit C 250 mg-vit E 90 mg-zinc 40 2 tab PO DAILY 09/23/20 10/06/24 History mg-copper 1 xz-btpavp-jygwlx capsule (PreserVision AREDS-2) sildenafil (pulm.hypertension) 20 20 mg PO Q24H PRN sexual activity 09/29/21 10/06/24 History mg tablet metformin 500 mg tablet 500 mg PO BID 90 days #180 tabs 03/27/24 10/06/24 Rx cholecalciferol (vitamin D3) 125 125 mcg PO DAILY 06/01/24 10/06/24 History mcg (5,000 unit) tablet (Vitamin D3) Have you fallen in the past year?: No PFSH Medical History Wears glasses Cancer Prostate disease Low iron High cholesterol Neuropathic arthritis NAFLD (nonalcoholic fatty liver disease) History of hiatal hernia History of GI bleed History of diverticulitis Gastric reflux Non-smoker Shortness of breath on exertion Leg cramps History of edema History of echocardiogram History of stress test Cardiology follow-up encounter Segmental dysfunction of lumbar region Segmental dysfunction of cervical region Anemia Obesity Essential hypertension Spinal stenosis at L4-L5 level Low back pain without sciatica Diastasis recti Hyperlipidemia Surgical History Hx of right cataract extraction Hx of left cataract extraction History of esophagogastroduodenosco py (EGD) Hx of parathyroidectomy History of tonsillectomy and adenoidectomy History of cystoscopy (02/2008) Family History Father Dementia Mother Atrial fibrillation Social History Smoking Status: Never smoker second hand exposure: No alcohol intake: current alcohol intake frequency: a few times a week Alcohol type: wine substance use type: does not use caffeine: Yes Type: coffee Number of servings: 3 what type of physical activity do you participate in: none maria fernanda/buddhism: Muslim seatbelt use: always HPI HPI Chief Complaint: Details: KERWIN ALVARADO, is a 84 M who presents to the office today for follow up.PMH paresthesia; HTN; hyperlipidemia; polyneuropathy (Neurology) Previous workup: 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 Provider at that time mentioned could be cause of anemia; treated with reglan for two years and Kerwin reports this continues to be resolved. Colonoscopy 11.11.15 [facility] noting diverticulosis. No polyps or history of polyps *BGI established 3.17.23. Constipation has been a long-term issue with worsening in the last 3 months. Will use stool softener/stimulant to promote movement. Without intervention he has no BM or minimal BM with extensive straining; does not note blood/mucus. GES 3..23- Normal 39.22 CT abd/pel 3..23 - fatty liver, kidney stones, enlarged prostate US/Elastography 4..23- Liver measures 16cm 13.2 Kpa F3-F4- Rx Ursodiol OV 7.3.23 Pt is stable since last visit. Previously tried on Linzess for constipation. Was helpful at first but then developed diarrhea. Constipation is controlled now with daily stool softener. Was prescribed Ursodiol for fatty liver but has not taken it. Has several questions about fatty liver and previous work up. US abd/Elastography 9.5.23- Liver measures 15.7cm 11.3 kPa Contact .11.13 Gave liver US results, repeast scan in 6 months. C/o diverticulitis flair u (more content not included)... Normal [facility] CT Adrenal gland WO and W co ntrast James 07-12-2024 IMPRESSION: 1. Stable 1.4 cm right adrenal adenoma. 2. 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 A 1.0 cm calculus has migrated from the renal pelvis on the left to the inferior pelvis in the right, no obstruction. 3. Diverticulosis in the visualized portions of the colon without evidence of acute inflammation. Speech Coach: PSCB Transcribe Date/Time: Jul 12 2024 9:17A Dictated by : SOLA FLORES MD This examination was interpreted and the report reviewed and electronically signed by: SOLA FLORES MD on Jul 12 2024 10:08AM [facility] DIVISION OF RADIOLOGY * * *Final Report* * * DATE OF EXAM: Jul 12 2024 9:24AM [facility] 0536 - CT ADRENAL WO/W IVCON / PROCEDURE REASON: Disorder of adrenal gland (HCC) * * * * Physician Interpretation * * * * CT ABDOMEN / ADRENAL GLANDS WITHOUT IV CONTRAST CLINICAL HISTORY: Disorder of the adrenal gland TECHNIQUE: Thin section spiral imaging through the adrenal glands was performed without IV or oral contrast due to the clinical indication. This does limit the exam for some other diagnoses. Contrast: IV: None Oral: None CT Radiation dose: Integrated Dose-length product (DLP) for this visit = 536 mGy*cm. CT Dose Reduction Employed: Automated exposure control(AEC) and iterative recon COMPARISON: CT 03/24/2023 and prior RESULT: Adrenal glands: Right adrenal gland: Stable 1.4 cm lobulated lesion in the anteromedial limb of the right adrenal gland, unchanged since 03/2023, precontrast attenuation of adenoma (6 HU). Left adrenal gland: No nodules, masses or thickening. Abdomen Liver: Borderline hepatic hypoattenuation suggesting steatosis. Biliary sytem: Gallbladder is unremarkable. No biliary ductal dilation. Spleen: Not enlarged a 1.8 cm accessory spleen is present in the hilum. Pancreas: No pancreatic duct dilation. Otherwise unremarkable. Kidneys: Duplex right kidney with duplicated collecting system. Horseshoe kidney: the parenchymal isthmus involving the inferior right renal moiety and inferior left renal pole, with suggestion single ureter. The previously noted 1.0 cm nonobstructing calculus in the inferior left renal pole is now located in the pelvis of the inferior right renal moiety. Lymph nodes: No abdominal lymphadenopathy. Mesentery/Peritoneum: No ascites or mass. Bowel: Diverticulosis in the visualized portions of the colon without evidence of acute inflammation. Endoclip in the descending colon. Visualized portions of the appendix are unremarkable. Vasculature: Diffuse atherosclerotic calcifications, no aneurysm. Bones/Soft Tissues: Thoracolumbar spondylosis. Stable 0.7 cm grade 1 anterolisthesis of L3 3 on L4 and 0.9 cm anterolisthesis of L4 on L5 with bulging of the uncovered discs. Left gluteal neurostimulator. Lower thorax: No consolidation or pleural effusion. Heavy atherosclerotic calcifications, mild cardiomegaly, no pericardial effusion. No consolidation or pleural effusion. Localizer images: No additional findings. DIVISION OF RADIOLOGY Provider, [facility] - 07/12/2024 * * *Final Report* * * DATE OF EXAM: Jul 12 2024 9:24AM [facility] 0536 - CT ADRENAL WO/W IVCON / PROCEDURE REASON: Disorder of adrenal gland (HCC) * * * * Physician Interpretation * * * * CT ABDOMEN / ADRENAL GLANDS WITHOUT IV CONTRAST CLINICAL HISTORY: Disorder of the adrenal gland TECHNIQUE: Thin section spiral imaging through the adrenal glands was performed without IV or oral contrast due to the clinical indication. This does limit the exam for some other diagnoses. Contrast: IV: None Oral: None CT Radiation dose: Integrated Dose-length product (DLP) for this visit = 536 mGy*cm. CT Dose Reduction Employed: Automated exposure control(AEC) and iterative recon COMPARISON: CT 03/24/2023 and prior RESULT: Adrenal glands: Right adrenal gland: Stable 1.4 cm lobulated lesion in the anteromedial limb of the right adrenal gland, unchanged since 03/2023, precontrast attenuation of adenoma (6 HU). Left adrenal gland: No nodules, masses or thickening. Abdomen Liver: Borderline hepatic hypoattenuation suggesting steatosis. Biliary sytem: Gallbladder is unremarkable. No biliary ductal dilation. Spleen: Not enlarged a 1.8 cm accessory spleen is present in the hilum. Pancreas: No pancreatic duct dilation. Otherwise unremarkable. Kidneys: Duplex right kidney with duplicated collecting system. Horseshoe kidney: the parenchymal isthmus involving the inferior right renal moiety and inferior left renal pole, with suggestion single ureter. The previously noted 1.0 cm nonobstructing calculus in the inferior left renal pole is now located in the pelvis of the inferior right renal moiety. Lymph nodes: No abdominal lymphadenopathy. Mesentery/Peritoneum: No ascites or mass. Bowel: Diverticulosis in the visualized portions of the colon without evidence of acute inflammation. Endoclip in the descending colon. Visualized portions of the appendix are unremarkable. Vasculature: Diffuse atherosclerotic calcifications, no aneurysm. Bones/Soft Tissues: Thoracolumbar spondylosis. Stable 0.7 cm grade 1 anterolisthesis of L3 3 on L4 and 0.9 cm anterolisthesis of L4 on L5 with bulging of the uncovered discs. Left gluteal neurostimulator. Lower thorax: No consolidation or pleural effusion. Heavy atherosclerotic calcifications, mild cardiomegaly, no pericardial effusion. No consolidation or pleural effusion. Localizer images: No additional findings. IMPRESSION IMPRESSION: 1. Stable 1.4 cm right adrenal adenoma. 2. 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 A 1.0 cm calculus has migrated from the renal pelvis on the left to the inferior pelvis in the right, no obstruction. 3. Diverticulosis in the visualized portions of the colon without evidence of acute inflammation. Speech Coach: MERLY Transcribe Date/Time: Jul 12 2024 9:17A Dictated by : SOLA FLORES MD This examination was interpreted and the report reviewed and electronically signed by: SOLA FLORES MD on Jul 12 2024 10:08AM EST [facility] Radiology Study observation (narrative) Coleman harper [facility] CT Adrenal gland WO and W co ntrast IVOrdered By: [facility] Provider on 07-12-2024 [facility] CBCDIF (EXTERNAL)Ordered By: Mary Ford on 05-03-2024 Basophils/100 WBC (Bld) 0.9 % 0 - 1.5 % [facility] Eosinophils/100 WBC (Bld) 3.8 % Abnormal 1 - 3 % [facility] Erythrocyte distribution width (RBC) [Ratio] 15.6 % Abnormal 11.7 - 15.0 % [facility] Hematocrit (Bld) [Volume fraction] 39.4 % 39 - 55 % [facility] Hemoglobin (Bld) [Mass/Vol] 13.2 g/dL Abnormal 14 - 16.5 g/dL [facility] [facility] Immature Gran % 0.200 % [facility] Interpretation and review of laboratory results Abnormal [facility] Lymphocytes (Bld) [#/Vol] 1.11 10*3/uL Abnormal 1.2 - 4 K/uL [facility] Lymphocytes/100 WBC (Bld) 24.9 % 20 - 30 % [facility] MCH (RBC) [Entitic mass] 34.0 pg 25. 4 - 34.6 pg [facility] MCHC (RBC) [Mass/Vol] 33.5 g/dL 30 - 36 g/[facility] (RBC[facility] [Entitic vol] 101.5 fL Abnormal 79 - 98 [facility]L [facility] Monocytes/100 WBC (Bld) 11.0 % Abnormal 2 - 8 % C [facility] NEUT ABS 2.6 K/uL 1.9 - 8 K/uL [facility] Neutrophils/100 WBC (Bld) 59.2 % 40 - 74 % [facility] Platelet mean volume (Bld) [Entitic vol] 10.0 fL 7.4 - 10.4 fL [facility] Platelets (Bld) [#/Vol] 176 10*3/uL 140 - 440 K/uL [facility] RBC (Bld) [#/Vol] 3.88 10*6/uL Abnormal [facility] RDW [facility] RDW-SD 58.0 [facility] WBC (Bld) [#/Vol] 4.5 10*3/uL 3.9 - 11 K/uL [facility] CBCDIF (EXTERNAL)on 05-03-20 24 Scanned into chart f rom outside source [facility] Absolute lymphocyte countOrd ered By: Faisal Keenan on 03-27-2024 Lymphocytes Auto (Unsp spec) [#/Vol] 1.25 10*3/uL 0.83-4.51 [facility] Automated lymphocyte count a s percentage of total leukocytesOrdered By: Faisal Keenan on 03-27-2024 Lymphocytes/100 WBC Auto (Unsp spec) 22.1 % 19-41 [facility] Basophil percentageOrdered B y: Faisal Keenan on 03-27-2024 Basophils/100 WBC (Bld) 1.1 % 0-1 [facility] Bilirubin [Mass/Vol] 0.50 mg/dL 0.20-1.00 [facility] Comment on above: For patients on eltr ombopag therapy, use of Dimension [place] TBIL is not recommended. Eosinophils/100 WBC (Bld) 3.9 % 0-5 [facility] Hemoglobin (Bld) [Mass/Vol] 12.6 g/dL 13.0-16.5 [facility] Lactate [Moles/Vol] 1.0 mmol/L 0.4-2.0 [facility] Monocytes/100 WBC (Bld) 11.8 % 0-10 [facility] Neutrophils (Bld) [#/Vol] 3.4 10*3/uL 2.0-7.7 [facility] Neutrophils/100 WBC (Bld) 60.7 % 47-70 [facility] WBC (Bld) [#/Vol] 5.7 10*3/uL 4.4-11.0 [facility] Basophil percentageon 2023 Chloride [Moles/Vol] 113 mmol/L 98-107 [facility] Cholesterol [Mass/Vol] 141 mg/dL <200 [facility] Comment on above: <200 mg/dL Desirable 200-240 mg/dL Borderline >240 mg/dL High Risk Glucose [Mass/Vol] 101 mg/dL 74-106 [facility] Comment on above: Fasting Glucose resu lt from 100 to 125 mg/dL suggests IMPAIRED HOMEOSTASIS per A.D.A. criteria. Potassium [Moles/Vol] 4.0 mmol/L 3.5-5.[address] [facility] Protein [Mass/Vol] 7.4 g/dL 6.4-8.2 [facility] Sodium [Moles/Vol] 139 mmol/L 136-145 [facility] Triglyceride [Mass/Vol] 149 mg/dL <199 C [facility] Comment on above: The drugs N-Acetylcy steine and Metamizole may falsely depress this assay.Serum Triglycerides Reference Interval Normal <150 mg/dL Borderline high 150 - 199 mg/dL High 200 - 499 mg/dL Very High > or = 500 mg/dL CMP (EXTERNAL)on 05-06-2024 Albumin [Mass/Vol] 3.6 g/dL [facility] Alk Phos Total 104 U/L 45 - 117 U/L [facility] Anion gap [Moles/Vol] 0.9 mmol/L [facility] AST [Catalytic activity/Vol] 19 U/L 8 - 37 U/L [facility] Bili Total 0.5 mg/dL 0.2 - 1 mg/dL [facility] GFR 72 mL/MIN [facility] GFR AFR AMER 87 mL/MIN [facility] GLOBULIN 3.8 [facility] Interpretation and review of laboratory results Abnormal [facility] Determination of erythrocyte mean corpuscular volume (MCV)Ordered By: Faisal Keenan on 03-27-2024 MCV (RBC) [Entitic vol] 99.7 fL 80-94 [facility] Erythrocyte distribution wid th ratioOrdered By: Faisal Keenan on 03-27-2024 Erythrocyte distribution width (RBC) [Ratio] 16.9 % 11.6-14.6 [facility] Erythrocyte distribution wid th standard deviationOrdered By: Faisal Keenan on 03-27-2024 Erythrocyte distribution width (RBC) [Entitic vol] 61.7 fL 35.1-43.9 [facility] Hematocrit Auto (Bld) [Volum e fraction]Ordered By: Faisal Keenan on 03-27-2024 Hematocrit (Bld) [Volume fraction] 37.6 % 40-54 [facility] Immature granulocytes/100 WB C Auto (Bld)Ordered By: Faisal Keenan on 03-27-2024 Immature granulocytes/100 WBC (Bld) 0.400 % 0.0-0.9 [facility] Comment on above: IG% - Immature Granu locytes (promyelocytes, myelocytes and metamyelocytes) > 1% indicates that a LEFT SHIFT is Present. Iron measurement (mass/mass) Ordered By: Faisal Keenan on 03-27-2024 Iron (Unsp spec) [Mass/Mass] 107 ug/dL 65-175 [facility] Laboratory - Chemistry and C hemistry - challengeOrdered By: Faisal Keenan on 03-27-2024 Albumin/Globulin [Mass ratio] 0.9 {ratio} 0.9-2.4 [facility] ALP [Catalytic activity/Vol] 104 U/L 45-117 [facility] Cholesterol in HDL [Mass/Vol] 43 mg/dL >40 [facility] Comment on above: The drugs N-Acetylcy steine and Metamizole may falsely depress this assay. Reference Range HDL <40 mg/dL Low HDL Cholesterol HDL >or= 60 mg/dL High HDL Cholesterol Globulin (S) [Mass/Vol] 3.8 g/dL 2.2-4.2 [facility] Urea nitrogen/Creatinine [Mass ratio] 35.2 mg/mg 10-20 [facility] Laboratory - Chemistry and C hemistry - challengeon 03-27-2024 ALT [Catalytic activity/Vol] 22 U/L 16-61 [facility] Cholesterol in LDL [Mass/Vol] 68 mg/dL 0-130 [facility] CO2 [Moles/Vol] 17.0 mmol/L 21.0-32.0 [facility] Ferritin [Mass/Vol] 52 ng/mL 26-388 [facility] Laboratory - CoagulationOrde red By: Faisal Keenan on 03-27-2024 INR Coag (Bld) [Relative time] 1.1 {INR} [facility] PT Coag (PPP) [Time] 14.0 s 11.7-14.9 [facility] Laboratory - Hematology and Cell countsOrdered By: Faisal Keenan on 03-27-2024 MCH (RBC) [Entitic mass] 33.4 pg 27.0-32.0 [facility] MCHC (RBC) [Mass/Vol] 33.5 g/dL 32-36 [facility] Nucleated RBC/100 WBC (Bld) [Ratio] 0 % 0-5 [facility] Platelet mean volume (Bld) [Entitic vol] 10.5 fL 6.2-12.0 [facility] Platelets (Bld) [#/Vol] 191 10*3/uL 150-450 [facility] Lipid 1996 panelon 4 CRP High sensitivity method (Bld) [Mass/Vol] [facility] Iron % Saturation 31.8 [facility] Iron [Mass/Vol] 107 ug/dL [facility] TIBC 107 [facility] VLDL 30 [facility] No Panel Informationon 03-27 Scanned into chart f rom outside source [facility] No Panel InformationOrdered By: Faisal Keenan on 03-27-2024 C-Reactive Protein Extended Range < 2.90 mg/L 0.0-3.0 [facility] Comment on above: C-Reactive Protein ( CRP) provides useful information for thediagnosis, therapy and monitoring of inflammatory processesand associated diseases. For the evaluation of Relative Riskfor Cardiovascular Disease, a High Sensitivity CRP (HSCRP)should be ordered. Estimated GFR (MDRD) Amer 87 mL/min >60 [facility] Comment on above: GFR Calc Estimated GFR (MDRD) Non-Af Amer 72 mL/min >60 [facility] Comment on above: Non- GFR Calc Total Iron Binding Capacity 336 ug/dL 250-450 [facility] Tumor Marker Alpha Fetoprotein 2.1 ng/mL 0.0-6.4 [facility] Comment on above: [facility] [employer] El ectrochemiluminescence Immunoassay(ECLIA)Values obtained with different assay methods or kits cannotbe used interchangeably. Results cannot be interpreted asabsolute evidence of the presence or absence of malignantdisease.This test is not interpretable in females.Performed at: [facility] [address] [id number] Director: Jesus Forrest PhD, Phone: [phone] VLDL Cholesterol 30 mg/dL 5-40 [facility] RBC Auto (Bld) [#/Vol]Ordere d By: Faisal Keenan on 03-27-2024 RBC (Bld) [#/Vol] 3.77 10*6/uL 4.6-6.2 [facility] Serum or plasma calcium perez urement (mass/volume)on 03-27-2024 Calcium [Mass/Vol] 8.9 mg/dL 8.5-10.1 [facility] Serum or plasma creatinine m easurement (mass/volume)on 03-27-2024 Creatinine [Mass/Vol] 1.05 mg/dL 0.70-1.[address] [facility] Comment on above: The validity of the calculated GFR & GFRAA in patients over 70 years has not been determined. Clinical correlation is essential. Serum or plasma iron saturat ion measurement (mass fraction)Ordered By: Faisal Keenan on 03-27-2024 Iron saturation [Mass fraction] 31.8 % 15.0-55.0 [facility] Serum or plasma urea nitroge n measurement (mass/volume)on 03-27-2024 Urea nitrogen [Mass/Vol] 37 mg/dL 7-18 [facility] Thin prep Papanicolaou smear with manual screeningOrdered By: Faisal Keenan on 03-27-2024 Thin prep Papanicolaou smear with manual screening 3.6 g/dL 3.2-5.0 [facility] Thin prep Papanicolaou smear with manual screening 19 U/L 15-37 [facility] Thin prep Papanicolaou smear with manual screening 9 5-15 [facility] Whole blood hemoglobin A1c/t otal hemoglobin ratio (mass fraction)Ordered By: Faisal Keenan on 03-27-2024 HbA1c (Bld) [Mass fraction] 5.1 % 3.8-5.6 [facility] Comment on above: Normal < 5.7 % Predi abetic 5.7 - 6.4 % Diabetic >or= 6.5 % Please note range changes. Absolute lymphocyte countOrd ered By: Masha Dominguez on 02-12-2024 Lymphocytes Auto (Unsp spec) [#/Vol] 1.21 10*3/uL 0.83-4.51 [facility] Automated lymphocyte count a s percentage of total leukocytesOrdered By: Masha Dominguez on 02-12-2024 Lymphocytes/100 WBC Auto (Unsp spec) 17.6 % 19-41 [facility] Basophil percentageOrdered B y: Masha Dominguez on 02-12-2024 Hemoglobin (Bld) [Mass/Vol] 8.9 g/dL 13.0-16.5 [facility] Basophils/100 WBC (Bld) 0.6 % 0-1 [facility] Chloride [Moles/Vol] 115 mmol/L 98-107 [facility] Eosinophils/100 WBC (Bld) 5.8 % 0-5 [facility] Glucose [Mass/Vol] 104 mg/dL 74-106 [facility] Comment on above: Fasting Glucose resu lt from 100 to 125 mg/dL suggests IMPAIRED HOMEOSTASIS per A.D.A. criteria. Monocytes/100 WBC (Bld) 10.7 % 0-10 [facility] Neutrophils (Bld) [#/Vol] 4.5 10*3/uL 2.0-7.7 [facility] Neutrophils/100 WBC (Bld) 64.9 % 47-70 [facility] Potassium [Moles/Vol] 3.5 mmol/L 3.5-5.1 [facility] Sodium [Moles/Vol] 142 mmol/L 136-145 [facility] WBC (Bld) [#/Vol] 6.9 10*3/uL 4.4-11.0 [facility] Determination of erythrocyte mean corpuscular volume (MCV)Ordered By: Masha Dominguez on 02-12-2024 MCV (RBC) [Entitic vol] 95.9 fL 80-94 [facility] Erythrocyte distribution wid th ratioOrdered By: Masha Dominguez on 02-12-2024 Erythrocyte distribution width (RBC) [Ratio] 19.1 % 11.6-14.6 [facility] Erythrocyte distribution wid th standard deviationOrdered By: Masha Dominguez on 02-12-2024 Erythrocyte distribution width (RBC) [Entitic vol] 62.3 fL 35.1-43.9 [facility] Hematocrit Auto (Bld) [Volum e fraction]Ordered By: Masha Dominguez on 02-12-2024 Hematocrit (Bld) [Volume fraction] 27.5 % 40-54 [facility] Immature granulocytes/100 WB C Auto (Bld)Ordered By: Masha Dominguez on 02-12-2024 Immature granulocytes/100 WBC (Bld) 0.400 % 0.0-0.9 [facility] Comment on above: IG% - Immature Granu locytes (promyelocytes, myelocytes and metamyelocytes) > 1% indicates that a LEFT SHIFT is Present. Laboratory - Chemistry and C hemistry - challengeOrdered By: Masha Dominguez on 02-12-2024 CO2 [Moles/Vol] 23.0 mmol/L 21.0-32.0 [facility] Urea nitrogen/Creatinine [Mass ratio] 11.6 mg/mg 10-20 [facility] Laboratory - Hematology and Cell countsOrdered By: Masha Dominguez on 02-12-2024 MCH (RBC) [Entitic mass] 31.0 pg 27.0-32.0 [facility] MCHC (RBC) [Mass/Vol] 32.3 g/dL 32-36 [facility] Nucleated RBC/100 WBC (Bld) [Ratio] 0 % 0-5 [facility] Platelet mean volume (Bld) [Entitic vol] 10.0 fL 6.2-12.0 [facility] Platelets (Bld) [#/Vol] 156 10*3/uL 150-450 [facility] No Panel InformationOrdered By: Masha Dominguez on 02-12-2024 Estimated Creatinine Clearance Calc 83.07 ml/min [facility] Estimated GFR (MDRD) Amer 123 mL/min >60 [facility] Comment on above: GFR Calc Estimated GFR (MDRD) Non-Af Amer 102 mL/min >60 [facility] Comment on above: Non- GFR Calc RBC Auto (Bld) [#/Vol]Ordere d By: Masha Dominguez on 02-12-2024 RBC (Bld) [#/Vol] 2.42 10*6/uL 4.6-6.2 [facility] Serum or plasma calcium perez urement (mass/volume)Ordered By: Masha Dominguez on 02-12-2024 Calcium [Mass/Vol] 7.9 mg/dL 8.5-10.1 [facility] Serum or plasma creatinine m easurement (mass/volume)Ordered By: Masha Dominguez on 02-12-2024 Creatinine [Mass/Vol] 0.78 mg/dL 0.70-1.30 [facility] Comment on above: The validity of the calculated GFR & GFRAA in patients over 70 years has not been determined. Clinical correlation is essential. Serum or plasma urea nitroge n measurement (mass/volume)Ordered By: Masha Dominguez on 02-12-2024 Urea nitrogen [Mass/Vol] 9 mg/dL 7-18 [facility] Thin prep Papanicolaou smear with manual screeningOrdered By: Masha Dominguez on 02-12-2024 Thin prep Papanicolaou smear with manual screening 4 5-15 [facility] Clostridioides difficile nuc leic acid assay by PCROrdered By: aMsha Dominguez on 02-10-2024 C. difficile DNA ALISHA+probe Ql (Unsp spec) [facility] Review by pathologistOrdered By: Chelle Alcala on 02-10-2024 Pathologist review Raj (Unsp spec) [Interp] March ant [facility] Pathologist review Raj (Unsp spec) [Interp] Reviewed [facility] Comment on above: Previous reported re sult: Brynn cain Edited by: OTILIO on 02/14/24:0937Severe anemiaClinical correlation necessary.Barry Whitman M.D. 02/14/24 AMENDED REPORT 02/14/24 0937 PATH REV previously reported as: March Stool Clostridium difficile detectionOrdered By: Masha Dominguez on 02-10-2024 C. difficile Ql (Stl) [facility] Activated partial thrombopla stin time (aPTT) in platelet poor plasma by coagulation aOrdered By: Portillo Mejia on 02-09-2024 aPTT Coag (PPP) [Time] 29.6 s 24.1-36.2 [facility] Laboratory - CoagulationOrde red By: Portillo Mejia on 02-09-2024 INR Coag (Bld) [Relative time] 1.2 {INR} [facility] PT Coag (PPP) [Time] 15.2 s 11.7-14.9 [facility] Absolute lymphocyte countOrd ered By: Shayne Elder on 02-08-2024 Lymphocytes Auto (Unsp spec) [#/Vol] 1.51 10*3/uL 0.83-4.51 [facility] Automated lymphocyte count a s percentage of total leukocytesOrdered By: Shayne Elder on 02-08-2024 Lymphocytes/100 WBC Auto (Unsp spec) 21.2 % 19-41 [facility] Basophil percentageOrdered B y: Shayne Elder on 02-08-2024 Lactate [Moles/Vol] 3.3 mmol/L 0.4-2.0 [facility] Comment on above: Critical Result(s) C alled at: 15:32:55 02/08/2024 by: Genia Bernstein to [facility]. Results read back by same. Basophils/100 WBC (Bld) 1.1 % 0-1 [facility] Bilirubin [Mass/Vol] 0.50 mg/dL 0.20-1.00 [facility] Comment on above: For patients on eltr ombopag therapy, use of Dimension [place] TBIL is not recommended. Chloride [Moles/Vol] 105 mmol/L 98-107 [facility] Eosinophils/100 WBC (Bld) 4.5 % 0-5 [facility] Glucose [Mass/Vol] 193 mg/dL 74-106 [facility] Comment on above: Fasting Glucose resu lt greater than or equal to 126 mg/dL suggests DIABETES MELLITUS per A.D.A. criteria. Hemoglobin (Bld) [Mass/Vol] 8.1 g/dL 13.0-16.5 [facility] Lactate [Moles/Vol] 2.3 mmol/L 0.4-2.0 [facility] Comment on above: Critical Result(s) C alled at: 11:09:40 02/08/2024 by: Elgin Dash. Mik Thacker RN (ER). Results read back by same. Monocytes/100 WBC (Bld) 8.4 % 0-10 [facility] Neutrophils (Bld) [#/Vol] 4.6 10*3/uL 2.0-7.7 [facility] Neutrophils/100 WBC (Bld) 64.2 % 47-70 [facility] Potassium [Moles/Vol] 4.1 mmol/L 3.5-5.1 [facility] Protein [Mass/Vol] 6.7 g/dL 6.4-8.2 [facility] Sodium [Moles/Vol] 136 mmol/L 136-145 [facility] WBC (Bld) [#/Vol] 7.1 10*3/uL 4.4-11.0 [facility] Determination of erythrocyte mean corpuscular volume (MCV)Ordered By: Shayne Elder on 02-08-2024 MCV (RBC) [Entitic vol] 107.3 fL 80-94 [facility] Erythrocyte distribution wid th ratioOrdered By: Shayne Elder on 02-08-2024 Erythrocyte distribution width (RBC) [Ratio] 14.2 % 11.6-14.6 [facility] Erythrocyte distribution wid th standard deviationOrdered By: Sahyne Elder on 02-08-2024 Erythrocyte distribution width (RBC) [Entitic vol] 53.9 fL 35.1-43.9 [facility] Hematocrit Auto (Bld) [Volum e fraction]Ordered By: Shayne Elder on 02-08-2024 Hematocrit (Bld) [Volume fraction] 25.1 % 40-54 [facility] Immature granulocytes/100 WB C Auto (Bld)Ordered By: Shayne Elder on 02-08-2024 Immature granulocytes/100 WBC (Bld) 0.600 % 0.0-0.9 [facility] Comment on above: IG% - Immature Granu locytes (promyelocytes, myelocytes and metamyelocytes) > 1% indicates that a LEFT SHIFT is Present. Iron measurement (mass/mass) Ordered By: Masha Dominguez on 02-08-2024 Iron (Unsp spec) [Mass/Mass] 52 ug/dL 65-175 [facility] Laboratory - Chemistry and C hemistry - challengeOrdered By: Shayne Elder on 02-08-2024 Albumin/Globulin [Mass ratio] 1.0 {ratio} 0.9-2.4 [facility] ALP [Catalytic activity/Vol] 100 U/L 45-117 [facility] ALT [Catalytic activity/Vol] 19 U/L 16-61 [facility] CO2 [Moles/Vol] 24.0 mmol/L 21.0-32.0 [facility] Globulin (S) [Mass/Vol] 3.3 g/dL 2.2-4.2 [facility] Urea nitrogen/Creatinine [Mass ratio] 20.3 mg/mg 10-20 [facility] Laboratory - Chemistry and C hemistry - challengeOrdered By: Masha Dominguez on 02-08-2024 Ferritin [Mass/Vol] 48 ng/mL 26-388 [facility] Laboratory - Hematology and Cell countsOrdered By: Shayne Elder on 02-08-2024 MCH (RBC) [Entitic mass] 34.6 pg 27.0-32.0 [facility] MCHC (RBC) [Mass/Vol] 32.3 g/dL 32-36 [facility] Nucleated RBC/100 WBC (Bld) [Ratio] 0 % 0-5 [facility] Platelet mean volume (Bld) [Entitic vol] 10.5 fL 6.2-12.0 [facility] Platelets (Bld) [#/Vol] 259 10*3/uL 150-450 [facility] Lower GI hemoglobin IA Ql (S tl)Ordered By: Shayne Elder on 02-08-2024 Stool Occult Blood (JAYE) Positive [facility] No Panel InformationOrdered By: Shayne Elder on 02-08-2024 Estimated Creatinine Clearance Calc 54.03 ml/min [facility] Estimated GFR (MDRD) Amer 73 mL/min >60 [facility] Comment on above: GFR Calc Estimated GFR (MDRD) Non-Af Amer 60 mL/min >60 [facility] Comment on above: Non- GFR Calc Troponin I High Sensitivity 3 pg/mL 3.0-78.0 [facility] Comment on above: Please Note: New Amrita t Units and Gender Specific Reference Ranges. For more information see Policy Stat Procedure [place] High Sensitivity Troponin (TNIH) and attachments. No Panel InformationOrdered By: Masha Dominguez on 02-08-2024 Total Iron Binding Capacity 320 ug/dL 250-450 [facility] RBC Auto (Bld) [#/Vol]Ordere d By: Shayne Elder on 02-08-2024 RBC (Bld) [#/Vol] 2.34 10*6/uL 4.6-6.2 [facility] Serum or plasma calcium perez urement (mass/volume)Ordered By: Shayne Elder on 02-08-2024 Calcium [Mass/Vol] 8.5 mg/dL 8.5-10.1 [facility] Serum or plasma creatinine m easurement (mass/volume)Ordered By: Shayne Elder on 02-08-2024 Creatinine [Mass/Vol] 1.23 mg/dL 0.70-1.30 [facility] Comment on above: The validity of the calculated GFR & GFRAA in patients over 70 years has not been determined. Clinical correlation is essential. Serum or plasma iron saturat ion measurement (mass fraction)Ordered By: Masha Dominguez on 02-08-2024 Iron saturation [Mass fraction] 16.2 % 15.0-55.0 [facility] Serum or plasma urea nitroge n measurement (mass/volume)Ordered By: Shayne Elder on 02-08-2024 Urea nitrogen [Mass/Vol] 25 mg/dL 7-18 [facility] Thin prep Papanicolaou smear with manual screeningOrdered By: Shayne Elder on 02-08-2024 Thin prep Papanicolaou smear with manual screening 3.4 g/dL 3.2-5.0 [facility] Thin prep Papanicolaou smear with manual screening 18 U/L 15-37 [facility] Thin prep Papanicolaou smear with manual screening 7 5-15 [facility] ALLIED HEALTHon 12-25-2023 ALLIED HEALTH HNO ID: [id number] Author: JEAN RIVERA Chaplain Service: Spiritual Care Author Type: [employer] Type: Allied Health Filed: 12/25/2023 10:04 Note Text: SPIRITUAL CARE PROGRESS NOTE SERVICE DATE: 12/25/2023 SERVICE TIME: 9:37am Patient was seen by motor driver during rounds Patient was informed of spiritual care resources When asked how he was doing, patient said he was doing okay and will be going home today Provided supportive presence To contact the Spiritual Care Department: For urgent motor driver referrals 14/06, Please call [phone]. SIGNATURE: Chaplain Rafaela PATIENT NAME: Kerwin Alvarado DATE: December 25, 2023 TIME: 10:02 AM PAGER/CONTACT #: [phone] Normal [facility] Calcium SerPl-mCncon 024 Calcium [Mass/Vol] 8.9 mg/dL Normal 8.5-10.2 [facility] Comment on above: Order Comment: Specruben christopher Type: BLOOD SPECIMENOrdering Facility: [facility] Address: [address] [place] [address] Performed By: #### 1 7861-6 ####[facility]ORY[facility]IA [id number] [place] [id number] [place] PTH-Intact SerPl-mCncon 02-0 Parathyrin.intact [Mass/Vol] 39 pg/mL Normal 15-65 [facility] Comment on above: Order Comment: Av christopher Type: BLOOD SPECIMEN [facility] Address: [address] [place] [address] Performed By: #### 2 731-8 #### [facility] [id number] [address] [place] [address] [place] ANES POSTPROC EVALon 024 ANES POSTPROC EVAL HNO ID: [id number] Author: BANDAR PATEL MD Service: Anesthesiology Author Type: Physician Type: Anesthesia Postprocedure Evaluation Filed: 12/24/2023 10:22 Note Text: POST ANESTHESIA EVALUATION NOTE : 1940 Procedure Summary Date: 12/24/23 Room / Location: OR / OR Anesthesia Start: 717 Anesthesia Stop: 804 Procedure: PARATHYROIDECTOMY (Bilateral: Thyroid) Diagnosis: Hyperparathyroidism (HCC) (Hyperparathyroidism (HCC) [E21.3]) Surgeons: Eleonora Hillman MD Responsible Provider: Bandar Patel MD Anesthesia Type: general ASA Status: 3 Anesthesia Type: general Airway Type: ETT Last Vitals Vitals Value Taken Time BP 157/73 12/24/23 0958 Temp 36.8 ?C (98.2 ?F) 12/24/23 0958 HR SpO2 73 12/24/23 0936 Resp 18 12/24/23 0958 SpO2 92 % 12/24/23 0958 Vitals shown include unfiled device data. Post Anesthesia Patient Status Patient Evaluation: PACU. PACU/ICU Patient Condition: stable. Anticipated Disposition: phase 2 then home. Neurological Status: aware and responsive. Pulmonary Status: breathing comfortably on room air Airway Control: returned to baseline unsupported. Cardiovascular Status: stable. Pain Management: clinically adequate - multimodal analgesia pain management approach Postoperative Hydration: acceptable. Intraoperative Events: no significant anesthesia events Recommendation: continue current plan of care. Anesthesia Observations No Documentation SIGNATURE: Bandar Patel MD PATIENT NAME: Kerwin Alvarado DATE: December 24, 2023 TIME: 10:22 AM CSN: [id number] [facility] ANES PRE-OPon 12-24-2023 ANES PRE-OP HNO ID: [id number] Author: BANDAR PATEL MD Service: Anesthesiology Author Type: Physician Type: Anesthesia Preprocedure Evaluation Filed: 12/24/2023 07:08 Note Text: ANESTHESIOLOGY DAY OF SURGERY NOTE : 1940 Procedure Information Date/Time: 12/24/23729 Procedure: PARATHYROIDECTOMY (Bilateral: Thyroid) Location: MM OR07 / MM OR Surgeons: Eleonora Hillman MD Estimated body mass index is 33.23 kg/m? as calculated from the following: Height as of 12/15/23: 175.3 cm (5' 9). Weight as of 12/15/23: 102.1 kg (225 lb). Most recent hematocrit and potassium results: Hematocrit 39.1 10/22/2023 Potassium 4.2 10/22/2023 Relevant Problems CARDIO (+) Hypertension, benign (+) Nonrheumatic mitral valve regurgitation GI (+) Esophageal reflux I - PHYSICAL EVALUATION AIRWAY Patient intubated: No. Tracheostomy tube not present Mallampati: III. TM distance: >3 FB. Neck ROM: full ROM without neurological symptoms. Mouth opening: adequate. Short neck: no. Thick neck: no DENTAL Dental findings: teeth intact. Additional exam findings: no II - ANESTHESIA PLAN ASA Score: 3 Anesthetic Plan: general Airway type: ETT NPO Status: adequate Anesthetic plan additional comments: liberty breath sounds normal heart sounds. Beta Janice Monitoring Plan Monitoring plan: Standard ASA. Post Procedure Analgesic Plan Postoperative analgesic plan: parenteral or oral opioids and multimodal analgesia. Patient / Surrogate agrees to blood products: yes DNR status not reviewed with patient and/or family prior to surgery. Significant changes in the patient condition since the History and Physical, not otherwise documented in primary service progress note: no. Potential Anesthesia issues that may suggest increased risk of complications or contraindication to planned procedure: none. Vitals Value Taken Time BP 145/68 12/24/23 0655 Pulse 68 12/24/23 0655 Resp 13 12/24/23 0655 Temp 36.1 ?C (96.9 ?F) 12/24/23 0655 SpO2 92 % 12/24/23 0655 Facility-Administered Medications as of 12/24/2023 Medication Dose Route Frequency - lidocaine (PF) 10 mg/mL (1 %) 1-2 mg injection (XYLOCAINE) 0.1-0.2 mL INTRADERMAL PRN - NaCl 0.9% iv flush bag 20 mL INTRAVENOUS PRN - NaCl 0.9% iv infusion 75 mL/hr INTRAVENOUS CONTINUOUS Outpatient Medications as of 12/24/2023 Medication Sig - amitriptyline (ELAVIL) 25 mg tablet Take 25 mg by mouth daily at bedtime. - diclofenac, EC, (VOLTAREN) 75 mg EC tablet - potassium citrate ER (UROCIT-K 10) 10 mEq (1,080 mg) Take 1 tablet by mouth three times a day with meals. - ursodiol (ACTIGALL) 300 mg capsule Take 300 mg by mouth twice daily. - omeprazole (PRILOSEC) 20 mg capsule Take 1 capsule by mouth once daily. - simvastatin (ZOCOR) 40 mg tablet Take 1 tablet by mouth once daily. - allopurinol (ZYLOPRIM) 100 mg tablet Take 2 tablets by mouth once daily. - cyanocobalamin (VITAMIN B-12) 100 mcg tab Take 100 mcg by mouth once daily. - vit A/vit C/vit E/zinc/copper (ICAPS AREDS ORAL) Take by mouth. Preservation - MULTIVITAMIN TAB Take one(1) tablet daily. - ASPIRIN 81 MG TAB Take 81 mg by mouth once daily. I have interviewed and examined the patient. I have reviewed the medical record and/or the pre-anesthesia evaluation, pertinent labs, and test results. This contains updated information obtained within 48 hours of Surgery/Procedure. SIGNATURE: Bandar Patel MD PATIENT NAME: Kerwin Alvarado DATE: December 24, 2023 TIME: 7:07 AM CSN: [id number] [facility] BRIEF OP NOTon 12-24-2023 BRIEF OP NOT HNO ID: [id number] Author: KATIE INFANTE MD Service: Endocrine Surgery Author Type: Physician Type: Brief Op Note Filed: 12/24/2023 08:08 Note Text: GENERAL SURGERY BRIEF OP NOTE LOG ID: [id number] Surgery/Procedure Date: 12/24/2023 Incision/Procedure Start Time: 7:34 AM Incision Close/Procedure End Time: 7:59 AM Surgeon(s) and Cap Machine Operator(s): Surgeon(s) and Role: * Eleonora Hillman MD - Primary * Katie Infante MD - Fellow No Additional Staff Procedure(s): Procedure(s): PARATHYROIDECTOMY Anesthesia: General Findings: Four enlarged glands. LL remnant. Please see operative report for full details Drains: None IV Fluids: Per anesthesia report Estimated Blood Loss: 5 mls Estimated Urine Output: Per anesthesia report Specimens: ID Type Source Tests Collected by Time Destination 1 : Pre PTH Blood BLOOD INTRAOPERATIVE PTH Eleonora Hillman MD 12/24/2023 7:45 AM A : left lower partially excised totally submitted 1 cm Tissue PARATHYROID GLAND LEFT SURGICAL PATHOLOGY Eleonora Hillman MD 12/24/2023 7:48 AM B : left upper totally excised portion submitted 1 cm Tissue PARATHYROID GLAND LEFT SURGICAL PATHOLOGY Eleonora Hillman MD 12/24/2023 7:49 AM C : Right Upper totally excised portion submitted 1cm Tissue PARATHYROID GLAND RIGHT SURGICAL PATHOLOGY Eleonora Hillman MD 12/24/2023 7:51 AM D : Right Lower totally excised portion submitted 1cm Tissue PARATHYROID GLAND RIGHT SURGICAL PATHOLOGY Eleonora Hillman MD 12/24/2023 7:51 AM Wound Classification: Class 1, operative wound clean, non-traumatic, with no inflammation encountered, no break in technique, gastrointestinal and genitor-urinary tracts not entered Complications: None Pre-Op/Pre-Procedure Diagnosis: Pre-Op Diagnosis Codes: * Hyperparathyroidism (HCC) [E21.3] Post-Op/Post-Procedure Diagnosis: Same SIGNATURE: Katie Infante MD PATIENT NAME: Kerwin Alvarado DATE: December 24, 2023 TIME: 8:08 AM PAGER/CONTACT #: [phone] From 6pm to 6 am and on weekends, please page general surgery on-call [id number] Normal [facility] HBV core Ab Ser Qlon 024 HBV core Ab Ql (S) Negative Normal Negative [facility] Comment on above: Order Comment: Speci men Type: BLOOD SPECIMEN [facility] Address: [address] [place] [address] Result Comment: No e vidence of current or past infection with Hepatitis B virus. Should recent infection be suspected, repeat testing may be considered 3-4 weeks after this draw. Performed By: #### 5 195-3, 77440-7, 81767-9 #### [facility] CLIA [id number] [address] [place] [address] [place] HBV surface Ag Ser Qlon HBV surface Ag Ql (S) Negative Normal Negative [facility] Comment on above: Order Comment: Speci men Type: BLOOD SPECIMEN [facility] Address: [address] [place] [address] Performed By: #### 5 195-3, 39071-3, 66390-3 #### [facility] CLIA [id number] [address] [place] [address] [place] HCV Ab Ser Qlon 12-24-2023 HCV Ab Ql (S) Negative Normal Negative [facility] Comment on above: Order Comment: Speci men Type: BLOOD SPECIMEN [facility] Address: [address] [place] [address] Result Comment: The result suggests no evidence of active infection with Hepatitis C virus. Should recent infection be suspected, repeat testing may be considered 4-6 weeks after this draw. Performed By: #### 1 6128-1 #### [facility] CLIA [id number] [address] [place] [address] [place] HIV 1+2 Ab IA Qlon HIV 1 and 2 Ab IA.rapid Nom (S/P/Bld) Normal [facility] Comment on above: Order Comment: Speci men Type: BLOOD SPECIMEN [facility] Address: [address] [place] [address] Result Comment: Test not indicated. Performed By: #### 5 195-3, 07748-8, 23544-6 #### [facility] CLIA [id number] [address] [place] [address] [place] HIV 1+2 Ab+HIV1 p24 Ag IA Ql Non-Reactive Normal Nonreactive [facility] Comment on above: Order Comment: Speci men Type: BLOOD SPECIMEN [facility] Address: [address] [place] [address] Performed By: #### 5 195-3, 93417-0, 44902-6 #### [facility] CLIA [id number] [address] [place] [address] [place] HIV immunoassay testing algorithm interpretation (S/P/Bld) [Interp] [facility] Comment on above: Order Comment: Speci men Type: BLOOD SPECIMEN [facility] Address: [address] [place] [address] Result Comment: No e vidence of HIV-1 or HIV-2 infection. Should recent infection be suspected, repeat testing may be considered 2-3 weeks after this draw. [place] Rev. Code 3701.243(E): This information has been disclosed to you from confidential records protected from disclosure by state law. ???You shall make no further disclosure of this information without the specific, written, and informed release of the individual to whom it pertains or as otherwise permitted by state law. A general authorization for the release of medical or other information is not sufficient for the purpose of the release of HIV test results or diagnoses. Performed By: #### 5 195-3, 51709-1, 81256-8 #### [facility] CLIA [id number] [address] [place] [address] [place] INTRAOPERATIVE PTHon 12-24-2 024 INTRAOPERATIVE PTH 182 pg/mL High -[address] [place] [address] Comment on above: Order Comment: Speci men Type: BLOOD SPECIMEN [facility] Address: [address] [place] [address] Performed By: #### R IPTH #### [facility] CLIA [id number] [address] [place] [address] [place] PTH-Intact SerPl-mCncon 02-0 Parathyrin.intact [Mass/Vol] 38 pg/mL Normal [address] [place] [address] Comment on above: Order Comment: Speci men Type: BLOOD SPECIMENOrdering Facility: [facility] Address: [address] [place] [address] Performed By: #### 2 731-8 ####[facility]ORYIA [id number] [address] [place] SURGICAL PATHOLOGYon 024 AMENDED REPORT DETAIL Normal [facility] Comment on above: Order Comment: Speci men Type: TISSUE SPECIMENOrdering Facility: [facility] Address: [address] [place] [address] Result Comment: Amen ded: 01/14/2024 10:00 AM This report is being amended to reflect a change in the intraoperative field. The change is as follows: B: stated FSD1 and it should be FSB1. Edited results: Previously reported on 12/28/2023 at 10:45 AM EST. Performed By: #### S ####[facility] [id number] [address] [place] CASE REPORT Normal [facility] Comment on above: Order Comment: Speci men Type: TISSUE SPECIMENOrdering Facility: [facility] Address: [address] [place] [address] Result Comment: Surg ica Pathology Report Case: [id number] Authorizing Provider: Eleonora Hillman MD Collected: 12/24/2023 07:48 AM Ordering Location: [facility] Surgery Received: 12/24/2023 08:01 AM Pathologist: Frank Gaviria DMD Intraop: Ally Curry MD Specimens: A) - PARATHYROID GLAND LEFT, left lower partially excised totally submitted 1 cm B) - PARATHYROID GLAND LEFT, left upper totally excised portion submitted 1 cm C) - PARATHYROID GLAND RIGHT, Right Upper totally excised portion submitted 1cm D) - PARATHYROID GLAND RIGHT, Right Lower totally excised portion submitted 1cm Performed By: #### S ####[facility] [id number] [address] [place] CLINICAL HISTORY Normal [facility] Comment on above: Order Comment: Speci men Type: TISSUE SPECIMENOrdering Facility: [facility] Address: [address] [place] [address] Result Comment: Pre- op diagnosis: Hyperparathyroidism (HCC) [E21.3] Performed By: #### S ####[facility] [id number] [address] STATES OF [facility] FINAL DIAGNOSIS [facility] Comment on above: Order Comment: Speci men Type: TISSUE SPECIMENOrdering Facility: [facility] Address: [address] [place] [address] Result Comment: A. L eft lower parathyroid gland, subtotal parathyroidectomy: - Mildly hypercellular parathyroid gland tissue. B. Left upper parathyroid gland, parathyroidectomy: - Normocellular parathyroid gland tissue. C. Right upper parathyroid gland, parathyroidectomy: - Normocellular parathyroid gland tissue. D. Right lower parathyroid gland, parathyroidectomy: - Mildly hypercellular parathyroid gland tissue. Amendment electronically signed by Ally Curry MD on 01/14/2024 at 10:02 AM Performed By: #### S ####[facility] [id number] [address] [place] FINAL PERFORMING LAB [facility] Comment on above: Order Comment: Speci men Type: TISSUE SPECIMENOrdering Facility: [facility] Address: [address] [place] [address] Result Comment: Diag nostic interpretation performed at [facility], [address], [place] [address] CLIA# [id number] Record Cutter: Ally Curry M.D. Corrected results: Previously reported on 12/28/2023 at 10:45 AM EST. Performed By: #### S ####[facility] [id number] [address] [place] GROSS DESCRIPTION [facility] Comment on above: Order Comment: Speci men Type: TISSUE SPECIMENOrdering Facility: [facility] Address: [address] [place] [address] Result Comment: A. P ARATHYROID GLAND LEFT FSA1: Received fresh for frozen section is one piece of red soft tissue weighing 0.039 grams and measuring 0.6 x 0.4 x 0.2 cm. The tissue is entirely submitted for frozen section in FSA1. Gross examination performed at [facility], [address] [facility], [place] [address] CLIA# [id number] B. PARATHYROID GLAND LEFT FSB1: Received fresh for frozen section is one piece of red soft tissue weighing 0.022 grams and measuring 0.3 x 0.3 x 0.2 cm. The tissue is entirely submitted for frozen section in FSB1. Gross examination performed at [facility], [address] [facility], [place] [address] CLIA# [id number] C. PARATHYROID GLAND RIGHT FSC1: Received fresh for frozen section is one piece of red soft tissue weighing 0.036 grams and measuring 0.5 x 0.3 x 0.2 cm. The tissue is entirely submitted for frozen section in FSC1. Gross examination performed at [facility], [address] [place] [address], [place] [address] CLIA# [id number] D. PARATHYROID GLAND RIGHT FSD1: Received fresh for frozen section is one piece of red soft tissue weighing 0.047grams and measuring 0.9 x 0.3 x 0.2 cm. The tissue is entirely submitted for frozen section in FSD1. Gross examination performed at [facility], [address] [facility], [place] [address] CLIA# [id number] Performed By: #### S ####[facility] [id number] [place] [address] [place] INTRAOPERATIVE DIAGNOSIS [facility] Comment on above: Order Comment: Speci men Type: TISSUE SPECIMENOrdering Facility: [facility] Address: [address] [place] [address] Result Comment: A. P ARATHYROID GLAND LEFT FSA1: Parathyroid tissue (Ally Curry MD) Intraoperative diagnosis performed at [facility], [address] [place] [address] CLIA# [id number] B. PARATHYROID GLAND LEFT FSB1: Parathyroid tissue (Ally Curry MD) Intraoperative diagnosis performed at [facility], [address], [place] [address] CLIA# [id number] C. PARATHYROID GLAND RIGHT FSC1: Parathyroid tissue (Ally Curry MD) Intraoperative diagnosis performed at [facility], [address], [place] [address] CLIA# [id number] D. PARATHYROID GLAND RIGHT FSD1: Parathyroid tissue (Ally Curry MD) Intraoperative diagnosis performed at [facility], [address], [place] [address] CLIA# [id number] Corrected results: Previously reported on 12/28/2023 at 10:45 AM EST. Performed By: #### S ####[facility] [id number] [place] [address] [place] NM PARATHYROID W SPECT/CTon 10-21-2023 [facility] No Panel Informationon 10-20 LOWEST T-SCORE -1.1 [facility] UA DIP, URINE (POC)on 2022 BILIRUBIN UA (POCT) Negative Negative [facility] CLARITY UA (POCT) Clear [facility] COLOR UA (POCT) Yellow [facility] GLUCOSE UA (POCT) Negative Negative mg/dL [facility] HEMOGLOBIN/BLOOD UA (POCT) Moderate Abnormal Negative [facility] KETONE UA (POCT) Negative Negative mg/dL [facility] LEUKOCYTES UA (POCT) Trace Abnormal Negative [facility] NITRITE UA (POCT) Negative Negative [facility] PH UA (POCT) 6.5 4.5 - 8.0 [facility] Protein Ql (U) 30 mg/dL Abnormal Negative mg/dL [facility] SPECIFIC GRAVITY UA (POCT) 1.020 1.005 - 1.030 [facility] UROBILINOGEN UA (POCT) 0.2 E.U./dL Rosanna l E.U./dL [facility] CT FLANK WO IVCONon 03-24-20 [facility] AMMONIA BLDon 03-16-2023 Ammonia (P) [Moles/Vol] 17 umol/L 11 - 32 umol/L [facility] Absolute lymphocyte countOrd ered By: Portillo Buck on 03-16-2023 Lymphocytes Auto (Unsp spec) [#/Vol] 1.38 10*3/uL 0.83-4.51 [facility] Atypical perinuclear antineu trophil cytoplasmic antibodies measurementOrdered By: Portillo Buck on 03-16-2023 Neutrophil cytoplasmic Ab.perinuclear.atypical IF (S) [Titer] <1:20 titer Neg:<1:20 [facility] Comment on above: The atypical pANCA p attern has been observed in asignificant percentage of patients with ulcerative colitis,primary sclerosing cholangitis and autoimmune hepatitis. Basic metabolic 2000 panelon 03-16-2023 Anion gap [Moles/Vol] 9 mmol/L Normal 9-18 [facility] Comment on above: Order Comment: Speci men Type: BLOOD SPECIMEN [facility] Address: [address] [place] [address] Performed By: #### 2 4321-2 #### [facility] CLIA [id number] [address] [place] [address] [place] Calcium [Mass/Vol] 9.8 mg/dL Normal 8.5-10.2 [facility] Comment on above: Order Comment: Speci men Type: BLOOD SPECIMEN [facility] Address: [address] [place] [address] Performed By: #### 2 4321-2 #### [facility] CLIA [id number] [place] [address] [place] Chloride [Moles/Vol] 100 mmol/L Normal 97-105 [facility] Comment on above: Order Comment: Speci men Type: BLOOD SPECIMEN [facility] Address: [address] [place] [address] Performed By: #### 2 4321-2 #### [facility] CLIA [id number] [address] [place] [address] [place] CO2 [Moles/Vol] 28 mmol/L Normal 22-30 [facility] Comment on above: Order Comment: Speci men Type: BLOOD SPECIMEN [facility] Address: [address] Performed By: #### 2 4321-2 #### [facility] CLIA [id number] [address] [place] [address] [place] Creatinine [Mass/Vol] 1.03 mg/dL Normal 0.73-1.22 [facility] Comment on above: Order Comment: Av christopher Type: BLOOD SPECIMEN [facility] Address: [address] Performed By: #### 2 4321-2 #### [facility] [place] [id number] [address] [place] [address] [place] ESTIMATED GLOMERULAR FILTRATION RATE 73 mL/min/1.73m??? Normal >=60 [facility] Comment on above: Order Comment: Av christopher Type: BLOOD SPECIMEN [facility] Address: [address] [place] [address] Result Comment: Yessi mated Glomerular Filtration Rate (eGFR) is calculated using the 2020 CKD-EPI creatinine equation. This equation utilizes serum creatinine, sex, and age as parameters. The creatinine assay has traceable calibration to isotope dilution-mass spectrometry. Refer to KDIGO guidelines for clinical interpretation. In patients with unstable renal function, e.g. those with acute kidney injury, the eGFR may not accurately reflect actual GFR. Performed By: #### 2 4321-2 #### [facility] CLIA [id number] [address] [place] [address] [place] Glucose [Mass/Vol] 110 mg/dL High 74-99 [facility] Comment on above: Order Comment: Av christopher Type: BLOOD SPECIMEN [facility] Address: [address] [place] [address] Result Comment: The [place] Diabetes [employer] (ADA) provides guidance for cutoff values for fasting glucose and random glucose. The ADA defines fasting as no caloric intake for at least 8 hours. Fasting plasma glucose results between 100 to 125 mg/dL indicate increased risk for diabetes (prediabetes). Fasting plasma glucose results greater than or equal to 126 mg/dL meet the criteria for diagnosis of diabetes. In the absence of unequivocal hyperglycemia, results should be confirmed by repeat testing. In a patient with classic symptoms of hyperglycemia or hyperglycemic crisis, random plasma glucose results greater than or equal to 200 mg/dL meet the criteria for diagnosis of diabetes. Reference: Standards of Medical Care in Diabetes 2016, [employer]. Diabetes Care. 2016.39(Suppl 1). Performed By: #### 2 4321-2 #### [facility] CLIA [id number] [address] [place] [address] [place] Potassium [Moles/Vol] 4.3 mmol/L Normal 3.7-5.1 [facility] Comment on above: Order Comment: Av christopher Type: BLOOD SPECIMEN Ordering Facility: [facility] Address: [address] [place] [address] Performed By: #### 2 4321-2 #### [facility] CLIA [id number] [address] [place] [address] [place] Sodium [Moles/Vol] 137 mmol/L Normal 136-144 [facility] Comment on above: Order Comment: Av christopher Type: BLOOD SPECIMEN Ordering Facility: [facility] Address: [address] [address] Performed By: #### 2 4321-2 #### [facility] CLIA [id number] [address] [place] [address] [place] Urea nitrogen [Mass/Vol] 23 mg/dL Normal 9-24 [facility] Comment on above: Order Comment: Av christopher Type: BLOOD SPECIMEN Ordering Facility: [facility] Address: [address] [address] Performed By: #### 2 4321-2 #### [facility] CLIA [id number] [address] [place] [address] [place] Anion gap [Moles/Vol] 9 mmol/L 9 - 18 mmol/L [facility] Calcium [Mass/Vol] 9.8 mg/dL 8.5 - 10. 2 mg/dL [facility] Chloride [Moles/Vol] 100 mmol/L 97 - 10 5 mmol/L [facility] Creatinine [Mass/Vol] 1.03 mg/dL 0.73 - 1.22 mg/dL [facility] Estimated Glomerular Filtration Rate 73 mL/min/1.73m >=60 mL/min/1.73m [facility] Glucose [Mass/Vol] 110 mg/dL High 74 - 99 mg/dL [facility] Potassium [Moles/Vol] 4.3 mmol/L 3.7 - 5.1 mmol/L [facility] Sodium [Moles/Vol] 137 mmol/L 136 - 144 mmol/L [facility] Basophil percentageOrdered B y: Portillo Buck on 03-16-2023 Ammonia (P) [Moles/Vol] 17.0 umol/L 11-32 [facility] Basophil percentage < 0.2 AI 0.0-0.9 [facility] Basophils/100 WBC (Bld) 1.2 % 0-1 [facility] Bilirubin [Mass/Vol] 0.50 mg/dL 0.20-1.00 [facility] Comment on above: For patients on eltr ombopag therapy, use of Dimension [place] TBIL is not recommended. Chloride [Moles/Vol] 102 mmol/L 98-107 [facility] Eosinophils/100 WBC (Bld) 6.8 % 0-5 [facility] Glucose [Mass/Vol] 94 mg/dL 74-106 [facility] Neutrophils (Bld) [#/Vol] 3.4 10*3/uL 2.0-7.7 [facility] Neutrophils/100 WBC (Bld) 58.0 % 47-70 [facility] Potassium [Moles/Vol] 4.1 mmol/L 3.5-5.1 [facility] Protein [Mass/Vol] 7.6 g/dL 6.4-8.2 [facility] Sodium [Moles/Vol] 133 mmol/L 136-145 [facility] WBC (Bld) [#/Vol] 5.9 10*3/uL 4.4-11.0 [facility] Blood erythrocytes count (nu mber/volume)Ordered By: Portillo Buck on 03-16-2023 RBC (Bld) [#/Vol] 3.77 10*6/uL 4.6-6.2 [facility] Blood hemoglobin measurement (mass/volume)Ordered By: Portillo Buck on 03-16-2023 Hemoglobin (Bld) [Mass/Vol] 13.1 g/dL 13.0-16.5 [facility] Blood lymphocytes/100 leukoc ytesOrdered By: Portillo Buck on 03-16-2023 Lymphocytes/100 WBC (Bld) 23.4 % 19-41 [facility] Blood monocytes/100 leukocyt esOrdered By: Portillo Buck on 03-16-2023 Monocytes/100 WBC (Bld) 10.4 % 0-10 [facility] Blood platelet mean volumeOr dered By: Portillo Buck on 03-16-2023 Platelet mean volume (Bld) [Entitic vol] 9.9 fL 6.2-12.0 [facility] CBC panel Auto (Bld)on 03-16 Erythrocyte distribution width (RBC) [Ratio] 13.1 % Normal 11.5-15.0 [facility] Comment on above: Order Comment: Speci men Type: BLOOD SPECIMEN Ordering Facility: [facility] Address: [address] [address] Performed By: #### 5 8410-2 #### [facility] [place] [id number] [address] [place] [address] [place] Hematocrit (Bld) [Volume fraction] 40.5 % Normal 39.0-51.0 [facility] Comment on above: Order Comment: Speci men Type: BLOOD SPECIMEN Ordering Facility: [facility] Address: [address] [address] Performed By: #### 5 8410-2 #### [facility] [place] [id number] [address] [place] [address] [place] Hemoglobin (Bld) [Mass/Vol] 13.5 g/dL Normal 13.0-17.0 [facility] Comment on above: Order Comment: Speci men Type: BLOOD SPECIMEN Ordering Facility: [facility] Address: [address] [address] Performed By: #### 5 8410-2 #### [facility] CLIA [id number] [place] [address] [place] MCH (RBC) [Entitic mass] 34.1 pg High 26.0-34.0 [facility] Comment on above: Order Comment: Speci men Type: BLOOD SPECIMEN Ordering Facility: [facility] Address: [address] [place] [address] Performed By: #### 5 8410-2 #### [facility] CLIA [id number] [place] [address] [place] MCHC (RBC) [Mass/Vol] 33.3 g/dL Normal 30.5-36.0 [facility] Comment on above: Order Comment: Speci men Type: BLOOD SPECIMEN Ordering Facility: [facility] Address: [address] [place] [address] Performed By: #### 5 8410-2 #### [facility] CLIA [id number] [address] [place] [address] [place] MCV (RBC) [Entitic vol] 102.3 fL High 80.0-100.0 [facility] Comment on above: Order Comment: Speci men Type: BLOOD SPECIMEN Ordering Facility: [facility] Address: [address] [place] [address] Performed By: #### 5 8410-2 #### [facility] CLIA [id number] [address] [place] [address] [place] Nucleated RBC (Bld) [#/Vol] 10*3/uL Normal <0.01 [facility] Comment on above: Order Comment: Speci men Type: BLOOD SPECIMEN Ordering Facility: [facility] Address: [address] [place] [address] Performed By: #### 5 8410-2 #### [facility] CLIA [id number] [address] [place] [address] [place] Platelet mean volume (Bld) [Entitic vol] 9.7 fL Normal 9.0-12.7 [facility] Comment on above: Order Comment: Speci men Type: BLOOD SPECIMEN Ordering Facility: [facility] Address: [address] [address] Performed By: #### 5 8410-2 #### [facility] CLIA [id number] [address] [place] [address] [place] Platelets (Bld) [#/Vol] 215 10*3/uL Normal 150-400 [facility] Comment on above: Order Comment: Speci men Type: BLOOD SPECIMEN Ordering Facility: [facility] Address: [address] [address] Performed By: #### 5 8410-2 #### [facility] [place] [id number] [address] [place] [address] [place] RBC (Bld) [#/Vol] 3.96 10*6/uL Low 4.20-6.00 [facility] Comment on above: Order Comment: Speci men Type: BLOOD SPECIMEN Ordering Facility: [facility] Address: [address] [address] Performed By: #### 5 8410-2 #### [facility] [place] [id number] [address] [place] [address] [place] WBC (Bld) [#/Vol] 5.90 10*3/uL Normal 3.70-11.00 [facility] Comment on above: Order Comment: Speci men Type: BLOOD SPECIMEN Ordering Facility: [facility] Address: [address] [place] [address] Performed By: #### 5 8410-2 #### [facility] [place] [id number] [address] [place] [address] [place] Erythrocyte distribution width (RBC) [Ratio] 13.1 % 11.5 - 15.0 % [facility] Hematocrit (Bld) [Volume fraction] 40.5 % 39.0 - 51.0 % [facility] Hemoglobin (Bld) [Mass/Vol] 13.5 g/dL 13.0 - 17.0 g/dL [facility] MCH (RBC) [Entitic mass] 34.1 pg High 26. 0 - 34.0 pg [facility] MCHC (RBC) [Mass/Vol] 33.3 g/dL 30.5 - 36.0 g/dL [facility] MCV (RBC) [Entitic vol] 102.3 fL High 80.0 - 100.0 fL [facility] Nucleated RBC (Bld) [#/Vol] <0.01 k/uL [facility] Platelet mean volume (Bld) [Entitic vol] 9.7 fL 9.0 - 12.7 fL [facility] Platelets (Bld) [#/Vol] 215 10*3/uL 150 - 400 k/uL [facility] RBC (Bld) [#/Vol] 3.96 10*6/uL Low 4.20 - 6.0 0 m/uL [facility] WBC (Bld) [#/Vol] 5.90 10*3/uL 3.70 - 11. 00 k/uL [facility] Comprehensive metabolic 2000 panelon 03-16-2023 Anion gap [Moles/Vol] 3 mmol/L Abnormal 5 - [address] [facility] AST [Catalytic activity/Vol] 22 U/L 15 - 37 U/L [facility] Bilirubin.direct [Mass/Vol] 0.50 mg/dL 0.20 - 1 MG/DL [facility] Est GFR Non- 77 [facility] Ferritin [Mass/Vol] 88.0 ng/mL 26.0 - 3 88.0 ng/mL [facility] GFR/1.73 sq M.predicted MDRD (S/P/Bld) [Vol rate/Area] 93 mL/min/{1.73_m2} [facility] T PROT 7.6 g/dL 6.4 - 8.2 g/dL [facility] Determination of erythrocyte mean corpuscular volume (MCV)Ordered By: Portillo Buck on 03-16-2023 MCV (RBC) [Entitic vol] 103.7 fL 80-94 [facility] HIVon 03-16-2023 HIV [facility] HIV 1 and HIV-2 antibody ass ay with HIV-1 p24 antigen detectionOrdered By: Portillo Buck on 03-16-2023 HIV 1+2 Ab+HIV1 p24 Ag IA Ql Non-Reactive Nonreactive [facility] Hematocrit Auto (Bld) [Volum e fraction]Ordered By: Portillo Buck on 03-16-2023 Hematocrit (Bld) [Volume fraction] 39.1 % 40-54 [facility] Laboratory - Chemistry and C hemistry - challengeOrdered By: Portillo Buck on 03-16-2023 ALP [Catalytic activity/Vol] 102 U/L 45-117 [facility] ALT [Catalytic activity/Vol] 32 U/L 16-61 [facility] CO2 [Moles/Vol] 28.0 mmol/L 21.0-32.0 [facility] Globulin (S) [Mass/Vol] 3.9 g/dL 2.2-4.2 [facility] Urea nitrogen/Creatinine [Mass ratio] 23.1 mg/mg 10-20 [facility] Laboratory - Chemistry and C hemistry - challengeon 03-16-2023 CO2 [Moles/Vol] 28 mmol/L 21 - 32 mmol/L [facility] Urea nitrogen [Mass/Vol] 23 mg/dL Abnormal 7 - 18 MG/D L [facility] Laboratory - Hematology and Cell countsOrdered By: Portillo Buck on 03-16-2023 Erythrocyte distribution width (RBC) [Entitic vol] 49.7 fL 35.1-43.9 [facility] Erythrocyte distribution width (RBC) [Ratio] 13.1 % 11.6-14.6 [facility] Immature granulocytes/100 WBC (Bld) 0.200 % 0.0-0.9 [facility] Comment on above: IG% - Immature Granu locytes (promyelocytes, myelocytes and metamyelocytes) > 1% indicates that a LEFT SHIFT is Present. MCH (RBC) [Entitic mass] 34.7 pg 27.0-32.0 [facility] Nucleated RBC/100 WBC (Bld) [Ratio] 0 % 0-5 [facility] MCHC Auto (RBC) [Mass/Vol]Or dered By: Portillo Buck on 03-16-2023 MCHC (RBC) [Mass/Vol] 33.5 g/dL 32-36 [facility] No Panel InformationOrdered By: Portillo Buck on 03-16-2023 Centromere B Antibody <0.2 AI 0.0-0.9 [facility] Ceruloplasmin 22.5 mg/dL 16.0-31.0 [facility] Estimated GFR (MDRD) Amer 93 mL/min >60 [facility] Comment on above: GFR Calc Estimated GFR (MDRD) Non-Af Amer 77 mL/min >60 [facility] Comment on above: Non- GFR Calc Haptoglobin 114 mg/dL 34-355 [facility] Comment on above: Performed at: - [employer] [address] [id number] Director: Jesus Forrest PhD, Phone: [phone] at: [facility] [id number] Director: Jorge Castillo MD, Phone: [phone] Hepatitis A IgM Antibody Negative Negative [facility] Hepatitis B Core IgM Antibody Negative Negative [facility] Hepatitis C Antibody (EIA) Non-Reactive Non Reactive [facility] Hepatitis C Antibody Comment Comment . [facility] Comment on above: Not infected with HC V unless early or acute infection issuspected (which may be delayed in an immunocompromisedindividual), or other evidence exists to indicate HCVinfection. CARPET CUTTER Antibody <0.2 AI 0.0-0.9 [facility] PSA/PROSTSPECAG SCRNon 03-16 Prostate specific Ag [Mass/Vol] 1.56 ng/mL <2.60 ng/mL [facility] Prostate specific Ag [Mass/Vol] 1.56 ng/mL Normal <2.60 [facility] Comment on above: Order Comment: Speci men Type: BLOOD SPECIMENOrdering Facility: [facility] Address: [address] [place] [address] Result Comment: Tota l PSA test methodology used is the Electrochemiluminescence Immunoassay by [employer]. Total PSA values by differing methodologies cannot be interchanged. Performed By: #### P SAS1 ####[facility] [id number] [place] [address] [place] Platelets bldOrdered By: Kel stevens Friend on 03-16-2023 Platelets (Bld) [#/Vol] 217 10*3/uL 150-450 [facility] Serum DNA double strand anti body assay (units/volume)Ordered By: Portillo Buck on 03-16-2023 DNA double strand Ab Qn (S) [IU]/mL 0-9 [facility] Comment on above: Negative <5 Equivoca l 5 - 9 Positive >9 Serum Anna-1 antibody assay (u nits/volume)Ordered By: Portillo Buck on 03-16-2023 Anna-1 extractable nuclear Ab Qn (S) <0.2 AI 0.0-0.9 [facility] Serum Scl-70 extractable nuc lear antibody assay (units/volume)Ordered By: Portillo Buck on 03-16-2023 SCL-70 extractable nuclear Ab Qn (S) <0.2 AI 0.0-0.9 [facility] Serum Ashley extractable nucl ear antibody detectionOrdered By: Portillo Buck on 03-16-2023 Ashley extractable nuclear Ab Ql (S) <0.2 AI 0.0-0.9 [facility] Serum classic neutrophil cyt oplasmic antibody assay (units/volume)Ordered By: Portillo Buck on 03-16-2023 Neutrophil cytoplasmic Ab.classic Qn (S) <1:20 titer Neg:<1:20 [facility] Serum mitochondria antibody detectionOrdered By: Portillo Buck on 03-16-2023 Mitochondria Ab Ql (S) <20.0 Units 0.0-20.0 [facility] Comment on above: Negative 0.0 - 20.0 Equivocal 20.1 - 24.9 Positive >24.9Mitochondrial (M2) Antibodies are found in 90-96% ofpatients with primary biliary cirrhosis.Performed at: - [facility] [id number] Director: Jesus Forrest PhD, Phone: [phone] Serum or plasma actin IgG an tibody assay (units/volume)Ordered By: Portillo Buck on 03-16-2023 Actin IgG Qn 12 Units 0-19 [facility] Comment on above: Negative 0 - 19 Weak positive 20 - 30 Moderate to strong positive >30 Actin Antibodies are found in 52-85% of patients with autoimmune hepatitis or chronic active hepatitis and in 22% of patients with primary biliary cirrhosis. Serum or plasma albumin perez urement (mass/volume)Ordered By: Portillo Buck on 03-16-2023 Albumin [Mass/Vol] 3.7 g/dL 3.2-5.0 [facility] Serum or plasma albumin/glob ulin mass ratioOrdered By: Portillo Buck on 03-16-2023 Albumin/Globulin [Mass ratio] 0.9 {ratio} 0.9-2.4 [facility] Serum or plasma [id number] protein tumor marker measurement (units/volume)Ordered By: Portillo Buck on 03-16-2023 AFP.tumor marker Qn 1.9 ng/mL 0.0-8.4 [facility] Comment on above: [employer] El ectrochemiluminescence Immunoassay(ECLIA)Values obtained with different assay methods or kits cannotbe used interchangeably. Results cannot be interpreted asabsolute evidence of the presence or absence of malignantdisease.This test is not interpretable in females. Serum or plasma angiotensin converting enzyme measurement (enzymatic activity/volume)Ordered By: Portillo Buck on 03-16-2023 Angiotensin converting enzyme [Catalytic activity/Vol] 42 U/L 14-82 [facility] Serum or plasma calcium perze urement (mass/volume)Ordered By: Portillo Buck on 03-16-2023 Calcium [Mass/Vol] 9.5 mg/dL 8.5-10.1 [facility] Serum or plasma creatinine m easurement (mass/volume)Ordered By: Portillo Buck on 03-16-2023 Creatinine [Mass/Vol] 1.00 mg/dL 0.70-1.30 [facility] Comment on above: The validity of the calculated GFR & GFRAA in patients over 70 years has not been determined. Clinical correlation is essential. Serum or plasma ferritin lili surement (mass/volume)Ordered By: Portillo Buck on 03-16-2023 Ferritin [Mass/Vol] 88 ng/mL 26-388 [facility] Serum or plasma hepatitis B virus surface antigen detection by immunoassayOrdered By: Portillo Buck on 03-16-2023 HBV surface Ag IA Ql Negative Negative [facility] Serum or plasma urea nitroge n measurement (mass/volume)Ordered By: Portillo Buck on 03-16-2023 Urea nitrogen [Mass/Vol] 23 mg/dL 7-18 [facility] Serum perinuclear neutrophil cytoplasmic antibody titer by immunofluorescenceOrdered By: Portillo Buck on 03-16-2023 Neutrophil cytoplasmic Ab.perinuclear IF (S) [Titer] <1:20 titer Neg:<1:20 [facility] Comment on above: The presence of posi tive fluorescence exhibiting P-ANCA orC-ANCA patterns alone is not specific for the diagnosis ofWegener's Granulomatosis (WG) or microscopic polyangiitis.Decisions about treatment should not be based solely onANCA IFA results. The [employer] AN[employer] Group Consensusrecommends follow up testing of positive sera with both AK-3 and MPO-ANCA enzyme immunoassays. As many as 5% serumsamples are positive only by EIA. Ref. AM J Clin [id number];111:507-513. Thin prep Papanicolaou smear with manual screeningOrdered By: Portillo Buck on 03-16-2023 Thin prep Papanicolaou smear with manual screening 22 U/L 15-37 [facility] Thin prep Papanicolaou smear with manual screening 3 5-15 [facility] Thin prep Papanicolaou smear with manual screening 91 ug/dL 69-132 [facility] Comment on above: Detection Limit = 5 Whole blood hemoglobin A1c/t otal hemoglobin ratio (mass fraction)Ordered By: Portillo Buck on 03-16-2023 HbA1c (Bld) [Mass fraction] 5.6 % 3.8-5.6 [facility] Comment on above: Normal < 5.7 % Predi abetic 5.7 - 6.4 % Diabetic >or= 6.5 % Please note range changes. Basophil percentageOrdered B y: Portillo Buck on 02-16-2023 Basophil percentage < 0.9 mg/dL 0.70-1.30 [facility] CREATINE BLOODon 02-16-2023 Creatinine 0.70 - 1.20 mg/dL [facility] Est GFR Non- [facility] No Panel InformationOrdered By: Portillo Buck on 02-16-2023 Bedside Estimated GFR (eGFR) > 60.0000 mL/min >60 [facility] Atypical perinuclear antineu trophil cytoplasmic antibodies measurementOrdered By: Portillo Buck on 02-05-2023 Neutrophil cytoplasmic Ab.perinuclear.atypical IF (S) [Titer] 1:20 titer Neg:<1:20 [facility] Comment on above: The atypical pANCA p attern has been observed in asignificant percentage of patients with ulcerative colitis,primary sclerosing cholangitis and autoimmune hepatitis. Basophil percentageOrdered B y: Portillo Buck on 02-05-2023 LDH [Catalytic activity/Vol] 174 U/L 87-241 [facility] Erythrocyte sedimentation ra teOrdered By: Portillo Buck on 02-05-2023 ESR (Bld) [Velocity] 9 mm/h 0-20 [facility] Laboratory - Chemistry and C hemistry - challengeOrdered By: Portillo Buck on 02-05-2023 Free T4 [Mass/Vol] 0.91 ng/dL 0.76-1.46 [facility] No Panel InformationOrdered By: Portillo Buck on 02-05-2023 Endomysial IgA Antibody Negative Negative [facility] Free Triiodothyronine (T3) pg/dL 2.4 pg/mL 2.18-3.98 [facility] Immunoglobulin E 76 IU/mL 6-495 [facility] Thyroid Stimulating Hormone (TSH) 3.08 uIU/mL 0.358-3.74 [facility] Serum classic neutrophil cyt oplasmic antibody assay (units/volume)Ordered By: Portillo Buck on 02-05-2023 Neutrophil cytoplasmic Ab.classic Qn (S) <1:20 titer Neg:<1:20 [facility] Serum or plasma C reactive p rotein measurement (mass/volume)Ordered By: Portillo Buck on 02-05-2023 CRP [Mass/Vol] mg/L 0.0-3.0 [facility] Comment on above: C-Reactive Protein ( CRP) provides useful information for thediagnosis, therapy and monitoring of inflammatory processesand associated diseases. For the evaluation of Relative Riskfor Cardiovascular Disease, a High Sensitivity CRP (HSCRP)should be ordered. Serum or plasma IgA measurem ent (mass/volume)Ordered By: Portillo Buck on 02-05-2023 IgA [Mass/Vol] 257 mg/dL 61-437 [facility] Serum or plasma IgG measurem ent (mass/volume)Ordered By: Portillo Buck on 02-05-2023 IgG [Mass/Vol] 1421 mg/dL 603-1613 [facility] Serum or plasma IgM measurem ent (mass/volume)Ordered By: Portillo Buck on 02-05-2023 IgM [Mass/Vol] 195 mg/dL 15-143 [facility] Comment on above: Performed at: [employer] [address] [id number] Director: Jesus Forrets PhD, Phone: [phone] at: [facility] [id number] Director: Jorge Castillo MD, Phone: [phone] Serum or plasma ferritin lili surement (mass/volume)Ordered By: Portillo Buck on 02-05-2023 Ferritin [Mass/Vol] 96 ng/mL 26-388 [facility] Serum parietal cell antibody assay (units/volume)Ordered By: Portillo Buck on 02-05-2023 Parietal cell Ab Qn (S) 2.6 Units 0.0-20.0 [facility] Comment on above: Negative 0.0 - 20.0 Equivocal 20.1 - 24.9 Positive >24.9Parietal Cell Antibodies are found in 90% of patientswith pernicious anemia and 30% of first degreerelatives with pernicious anemia. Serum perinuclear neutrophil cytoplasmic antibody titer by immunofluorescenceOrdered By: Portillo Buck on 02-05-2023 Neutrophil cytoplasmic Ab.perinuclear IF (S) [Titer] <1:20 titer Neg:<1:20 [facility] Comment on above: The presence of posi tive fluorescence exhibiting P-ANCA orC-ANCA patterns alone is not specific for the diagnosis ofWegener's Granulomatosis (WG) or microscopic polyangiitis.Decisions about treatment should not be based solely onANCA IFA results. The [employer] AN[employer] Consensusrecommends follow up testing of positive sera with both AK-3 and MPO-ANCA enzyme immunoassays. As many as 5% serumsamples are positive only by EIA. Ref. AM J Clin [id number];111:507-513. Serum tissue transglutaminas e IgA antibody assay (units/volume)Ordered By: Portillo Buck on 02-05-2023 tTG IgA Qn (S) <2 U/mL 0-3 [facility] Comment on above: Negative 0 - 3 Weak Positive 4 - 10 Positive >10 Tissue Transglutaminase (tTG) has been identified as the endomysial antigen. Studies have demonstr- ated that endomysial IgA antibodies have over 99% specificity for gluten sensitive enteropathy. Albumin Elph [Mass/Vol]on Albumin [Mass/Vol] 3.9 g/dL 2.9-4.4 [facility] Work Phone: Basophil percentageon 2021 Basophil percentage Comment . [facility] Work Phone: Comment on above: No monoclonality det ected.Performed at: [employer] [facility] [employer] [place] [id number] Director: Jesus Forrest PhD, Phone: [phone] Interpretation of serum or p lasma protein pattern by immunofixation (narrative resulton 10-12-2022 Protein Fractions Immunofixation Raj [Interp] See comment [facility] Work Phone: Comment on above: Result: Not Observed No Panel Informationon 10-12 Addendum Document Comment . [facility] Work Phone: Comment on above: Protein electrophore sis scan will follow via computer,mail, or oil separator delivery. Free Lambda Light Chains, Quant 27.0 mg/L 5.7-26.3 [facility] Work Phone: Serum dknvl-5-fgjylbel measu rement by electrophoresison 10-12-2022 Alpha 1 globulin Elph [Mass/Vol] 0.3 g/dL 0.0-0.4 [facility] Work Phone: Alpha 1 globulin Elph [Mass/Vol] 0.6 g/dL 0.4-1.0 [facility] Work Phone: Serum globulin measurement ( mass/volume)on 10-12-2022 Globulin (S) [Mass/Vol] 3.3 g/dL 2.2-3.9 [facility] Work Phone: [phone] Serum immunoglobulin kappa l ight chains/immunoglobulin lambda light chains mass ratioon 10-12-2022 Immunoglobulin light chains.kappa/Immunoglobu tony light chains.lambda (S) [Mass ratio] 1.91 0.26-1.65 [facility] Work Phone: [phone] Serum or plasma IgA measurem ent (mass/volume)on 10-12-2022 IgA [Mass/Vol] 239 mg/dL 61-437 [facility] Work Phone: [phone] Serum or plasma IgG measurem ent (mass/volume)on 10-12-2022 IgG [Mass/Vol] 1382 mg/dL [phone] [facility] Work Phone: [phone] Serum or plasma IgM measurem ent (mass/volume)on 10-12-2022 IgM [Mass/Vol] 184 mg/dL 15-143 [facility] Work Phone: Serum or plasma beta globuli n measurement by electrophoresis (mass/volume)on 10-12-2022 Beta globulin Elph [Mass/Vol] 1.0 g/dL 0.7-1.3 [facility] Work Phone: Serum or plasma gamma globul in measurement by electrophoresis (mass/volume)on 10-12-2022 Gamma globulin Elph [Mass/Vol] 1.4 g/dL 0.4-1.8 [facility] Work Phone: Serum or plasma immunoelectr ophoresis interpretation (nominal result)on 10-12-2022 Interpretation IEP [Interp] Comment . [facility] Work Phone: Comment on above: No monoclonality det ected. Serum or plasma immunoglobul in kappa light chains measurement (mass/volume)on 10-12-2022 Immunoglobulin light chains.kappa [Mass/Vol] 51.5 mg/L 3.3-19.4 [facility] Work Phone: Thin prep Papanicolaou smear with manual screeningon 10-12-2022 Thin prep Papanicolaou smear with manual screening 1.2 0.7-1.7 [facility] Work Phone: Total protein bloodon 2021 Protein [Mass/Vol] 7.2 g/dL 6.0-8.5 [facility] Work Phone: Absolute lymphocyte counton 05-04-2022 Lymphocytes Auto (Unsp spec) [#/Vol] 1.67 10*3/uL 0.83-4.51 [facility] Work Phone: Basophil percentageon 2021 Bilirubin [Mass/Vol] 0.40 mg/dL 0.20-1.00 [facility] Work Phone: [phone] Comment on above: For patients on eltr ombopag therapy, use of Dimension [place] TBIL is not recommended. Chloride [Moles/Vol] 107 mmol/L 98-107 [facility] Work Phone: Glucose [Mass/Vol] 117 mg/dL 74-106 [facility] Work Phone: Comment on above: Fasting Glucose resu lt from 100 to 125 mg/dL suggests IMPAIRED HOMEOSTASIS per A.D.A. criteria. Potassium [Moles/Vol] 3.9 mmol/L 3.5-5.1 [facility] Work Phone: Protein [Mass/Vol] 7.1 g/dL 6.4-8.2 [facility] Work Phone: Sodium [Moles/Vol] 139 mmol/L 136-145 [facility] Work Phone: Basophil percentage 0 SEEN /hpf [facility] Work Phone: Basophils/100 WBC (Bld) 0.8 % 0-1 [facility] Work Phone: Eosinophils/100 WBC (Bld) 2.2 % 0-5 [facility] Work Phone: Neutrophils (Bld) [#/Vol] 5.2 10*3/uL 2.0-7.7 [facility] Work Phone: Neutrophils/100 WBC (Bld) 61.4 % 47-70 [facility] Work Phone: WBC (Bld) [#/Vol] 8.5 10*3/uL 4.4-11.0 [facility] Work Phone: Bilirubin Test strip Ql (U)o n 05-04-2022 Bilirubin Ql (U) Negative Negative [facility] Work Phone: Blood erythrocytes count (nu mber/volume)on 05-04-2022 RBC (Bld) [#/Vol] 3.41 10*6/uL 4.6-6.2 [facility] Work Phone: Blood hemoglobin measurement (mass/volume)on 05-04-2022 Hemoglobin (Bld) [Mass/Vol] 12.0 g/dL 13.0-16.5 [facility] Work Phone: Blood lymphocytes/100 leukoc yteson 05-04-2022 Lymphocytes/100 WBC (Bld) 19.6 % 19-41 [facility] Work Phone: Blood monocytes/100 leukocyt eson 05-04-2022 Monocytes/100 WBC (Bld) 13.2 % 0-10 [facility] Work Phone: Blood platelet adequacy dete ction by light microscopyon 05-04-2022 Platelets LM Ql (Bld) ADEQUATE ADEQ [facility] Work Phone: Blood platelet mean volumeon 05-04-2022 Platelet mean volume (Bld) [Entitic vol] 10.6 fL 6.2-12.0 [facility] Work Phone: Determination of erythrocyte mean corpuscular volume (MCV)on 05-04-2022 MCV (RBC) [Entitic vol] 100.9 fL 80-94 [facility] Work Phone: Direct bilirubinon Bilirubin.direct [Mass/Vol] 0.10 mg/dL 0.00-0.30 [facility] Work Phone: [phone] Hematocrit Auto (Bld) [Volum e fraction]on 05-04-2022 Hematocrit (Bld) [Volume fraction] 34.4 % 40-54 [facility] Work Phone: [phone] Ketones Test strip Ql (U)on 05-04-2022 Ketones Ql (U) Negative Negative [facility] Work Phone: [phone] Laboratory - Chemistry and C hemistry - challengeon 05-04-2022 ALP [Catalytic activity/Vol] 146 U/L 45-117 [facility] Work Phone: ALT [Catalytic activity/Vol] 42 U/L 16-61 [facility] Work Phone: [phone] CO2 [Moles/Vol] 25.0 mmol/L 21.0-32.0 [facility] Work Phone: [phone] Globulin (S) [Mass/Vol] 4.2 g/dL 2.2-4.2 [facility] Work Phone: [phone] Urea nitrogen/Creatinine [Mass ratio] 33.0 mg/mg 10-20 [facility] Work Phone: Laboratory - Hematology and Cell countson 05-04-2022 Erythrocyte distribution width (RBC) [Entitic vol] 50.4 fL 35.1-43.9 [facility] Work Phone: [phone] Erythrocyte distribution width (RBC) [Ratio] 13.6 % 11.6-14.6 [facility] Work Phone: [phone] Immature granulocytes/100 WBC (Bld) 2.800 % 0.0-0.9 [facility] Work Phone: [phone] Comment on above: IG% - Immature Granu locytes (promyelocytes, myelocytes and metamyelocytes) > 1% indicates that a LEFT SHIFT is Present. MCH (RBC) [Entitic mass] 35.2 pg 27.0-32.0 [facility] Work Phone: [phone] Nucleated RBC/100 WBC (Bld) [Ratio] 0 % 0-5 [facility] Work Phone: MCHC Auto (RBC) [Mass/Vol]on 05-04-2022 MCHC (RBC) [Mass/Vol] 34.9 g/dL 32-36 [facility] Work Phone: Mucus LM Ql (Urine sed)on Mucus Ql (Urine sed) 0 SEEN /hpf [facility] Work Phone: Nitrite Test strip Ql (U)on 05-04-2022 Nitrite Ql (U) Negative Negative [facility] Work Phone: No Panel Informationon 05-04 Estimated Creatinine Clearance Calc 52.09 ml/min [facility] Work Phone: Estimated GFR (MDRD) Amer 79 mL/min >60 [facility] Work Phone: Comment on above: GFR Calc Estimated GFR (MDRD) Non-Af Amer 65 mL/min >60 [facility] Work Phone: Comment on above: Non- GFR Calc Platelets bldon 05-04-2022 Platelets (Bld) [#/Vol] 251 10*3/uL 150-450 [facility] Work Phone: Protein Test strip Ql (U)on 05-04-2022 Protein Ql (U) Negative Negative [facility] Work Phone: RBC morphologyon 05-04-2022 RBC morphology finding Nom (Bld) NORM C+C NORMAL NORM C&C [facility] Work Phone: Serum or plasma albumin perez urement (mass/volume)on 05-04-2022 Albumin [Mass/Vol] 2.9 g/dL 3.2-5.0 [facility] Work Phone: Serum or plasma calcium perez urement (mass/volume)on 05-04-2022 Calcium [Mass/Vol] 9.3 mg/dL 8.5-10.1 [facility] Work Phone: Serum or plasma creatinine m easurement (mass/volume)on 05-04-2022 Creatinine [Mass/Vol] 1.15 mg/dL 0.70-1.30 [facility] Work Phone: Comment on above: The validity of the calculated GFR & GFRAA in patients over 70 years has not been determined. Clinical correlation is essential. Serum or plasma urea nitroge n measurement (mass/volume)on 05-04-2022 Urea nitrogen [Mass/Vol] 38 mg/dL 7-18 [facility] Work Phone: Squamous epithelial cells de tection in urine sediment by light microscopyon 05-04-2022 Epithelial cells.squamous LM Ql (Urine sed) 0-5 SEEN /hpf [facility] Work Phone: Thin prep Papanicolaou smear with manual screeningon 05-04-2022 Thin prep Papanicolaou smear with manual screening 29 U/L 15-37 [facility] Work Phone: Thin prep Papanicolaou smear with manual screening 7 5-15 [facility] Work Phone: Urine blood detectionon 04-22 RBC Ql (U) Negative Negative [facility] Work Phone: RBC Ql (U) 0 SEEN /hpf [facility] Work Phone: Urine clarityon 05-04-2022 Clarity (U) Clear Clear [facility] Work Phone: Urine color determinationon 05-04-2022 Color (U) Yellow Yellow [facility] Work Phone: Urine glucose detectionon Glucose Ql (U) Normal mg/dl Normal [facility] Work Phone: Urine leukocyte esterase det ection by dipstickon 05-04-2022 Leukocyte esterase Test strip Ql (U) Negative Negative [facility] Work Phone: Urine pHon 05-04-2022 pH (U) 6.0 [pH] [facility] Work Phone: Urine sediment bacteria coun t by microscopy (number/high power field)on 05-04-2022 Bacteria LM.HPF (Urine sed) [#/Area] 0 /[HPF] None Seen [facility] Work Phone: [phone] Urine specific gravity measu rementon 05-04-2022 Specific gravity (U) [Rel density] 1.010 [facility] Work Phone: [phone] Urobilinogen Auto test strip Ql (U)on 05-04-2022 Urobilinogen Ql (U) Normal mg/dl Normal [facility] Work Phone: [phone] Absolute lymphocyte counton 04-03-2022 Lymphocytes Auto (Unsp spec) [#/Vol] 1.67 10*3/uL 0.83-4.51 [facility] Work Phone: Basophil percentageon 2021 Basophils/100 WBC (Bld) 0.7 % 0-1 [facility] Work Phone: [phone] Bilirubin [Mass/Vol] 0.50 mg/dL 0.20-1.00 [facility] Work Phone: [phone] Comment on above: For patients on eltr ombopag therapy, use of Dimension [place] TBIL is not recommended. Chloride [Moles/Vol] 110 mmol/L 98-107 [facility] Work Phone: [phone] Cholesterol [Mass/Vol] 133 mg/dL <200 [facility] Work Phone: [phone] Comment on above: <200 mg/dL Desirable 200-240 mg/dL Borderline >240 mg/dL High Risk Eosinophils/100 WBC (Bld) 3.9 % 0-5 [facility] Work Phone: Glucose [Mass/Vol] 99 mg/dL 74-106 [facility] Work Phone: Neutrophils (Bld) [#/Vol] 3.0 10*3/uL 2.0-7.7 [facility] Work Phone: Neutrophils/100 WBC (Bld) 52.8 % 47-70 [facility] Work Phone: Potassium [Moles/Vol] 4.2 mmol/L 3.5-5.1 [facility] Work Phone: Protein [Mass/Vol] 7.5 g/dL 6.4-8.2 [facility] Work Phone: [phone] Sodium [Moles/Vol] 140 mmol/L 136-145 [facility] Work Phone: [phone] Triglyceride [Mass/Vol] 142 mg/dL [facility] Work Phone: [phone] Comment on above: The drugs N-Acetylcy steine and Metamizole may falsely depress this assay.Serum Triglycerides Reference Interval Normal <150 mg/dL Borderline high 150 - 199 mg/dL High 200 - 499 mg/dL Very High > or = 500 mg/dL WBC (Bld) [#/Vol] 5.7 10*3/uL 4.4-11.0 [facility] Work Phone: [phone] Blood erythrocytes count (nu mber/volume)on 04-03-2022 RBC (Bld) [#/Vol] 3.67 10*6/uL 4.6-6.2 [facility] Work Phone: [phone] Blood hemoglobin measurement (mass/volume)on 04-03-2022 Hemoglobin (Bld) [Mass/Vol] 13.3 g/dL 13.0-16.5 [facility] Work Phone: Blood lymphocytes/100 leukoc yteson 04-03-2022 Lymphocytes/100 WBC (Bld) 29.4 % 19-41 [facility] Work Phone: Blood monocytes/100 leukocyt eson 04-03-2022 Monocytes/100 WBC (Bld) 13.0 % 0-10 [facility] Work Phone: Blood platelet mean volumeon 04-03-2022 Platelet mean volume (Bld) [Entitic vol] 10.8 fL 6.2-12.0 [facility] Work Phone: [phone] Determination of erythrocyte mean corpuscular volume (MCV)on 04-03-2022 MCV (RBC) [Entitic vol] 104.6 fL 80-94 [facility] Work Phone: [phone] Hematocrit Auto (Bld) [Volum e fraction]on 04-03-2022 Hematocrit (Bld) [Volume fraction] 38.4 % 40-54 [facility] Work Phone: [phone] Laboratory - Chemistry and C hemistry - challengeon 04-03-2022 ALP [Catalytic activity/Vol] 93 U/L 45-117 [facility] Work Phone: ALT [Catalytic activity/Vol] 36 U/L 16-61 [facility] Work Phone: CO2 [Moles/Vol] 25.0 mmol/L 21.0-32.0 [facility] Work Phone: [phone] Globulin (S) [Mass/Vol] 3.8 g/dL 2.2-4.2 [facility] Work Phone: [phone] Urea nitrogen/Creatinine [Mass ratio] 28.8 mg/mg 10-20 [facility] Work Phone: [phone] Laboratory - Hematology and Cell countson 04-03-2022 Erythrocyte distribution width (RBC) [Entitic vol] 51.4 fL 35.1-43.9 [facility] Work Phone: Erythrocyte distribution width (RBC) [Ratio] 13.4 % 11.6-14.6 [facility] Work Phone: [phone] Immature granulocytes/100 WBC (Bld) 0.200 % 0.0-0.9 [facility] Work Phone: [phone] Comment on above: IG% - Immature Granu locytes (promyelocytes, myelocytes and metamyelocytes) > 1% indicates that a LEFT SHIFT is Present. MCH (RBC) [Entitic mass] 36.2 pg 27.0-32.0 [facility] Work Phone: [phone] Nucleated RBC/100 WBC (Bld) [Ratio] 0 % 0-5 [facility] Work Phone: [phone] MCHC Auto (RBC) [Mass/Vol]on 04-03-2022 MCHC (RBC) [Mass/Vol] 34.6 g/dL 32-36 [facility] Work Phone: [phone] No Panel Informationon 04-03 Estimated GFR (MDRD) Amer 53 mL/min >60 [facility] Work Phone: Comment on above: GFR Calc Estimated GFR (MDRD) Non-Af Amer 44 mL/min >60 [facility] Work Phone: Comment on above: Non- GFR Calc Prostate Specific Antigen Screen 1.95 ng/mL 0.00-4.00 [facility] Work Phone: Comment on above: This test was perfor med using the TPSA assay method for [email or web address] chemistry system. Values obtained with differentassay methods cannot be used interchangably.When changing PSA assays in the course of monitoring apatient, additional sequential testing should be carriedout to confirm baseline values. Platelets bldon 04-03-2022 Platelets (Bld) [#/Vol] 205 10*3/uL 150-450 [facility] Work Phone: Serum or plasma albumin perez urement (mass/volume)on 04-03-2022 Albumin [Mass/Vol] 3.7 g/dL 3.2-5.0 [facility] Work Phone: Serum or plasma albumin/glob ulin mass ratioon 04-03-2022 Albumin/Globulin [Mass ratio] 1.0 {ratio} 0.9-2.4 [facility] Work Phone: Serum or plasma calcium perez urement (mass/volume)on 04-03-2022 Calcium [Mass/Vol] 9.4 mg/dL 8.5-10.1 [facility] Work Phone: Serum or plasma cholesterol in HDL measurement (mass/volume)on 04-03-2022 Cholesterol in HDL [Mass/Vol] 39 mg/dL [facility] Work Phone: Comment on above: The drugs N-Acetylcy steine and Metamizole may falsely depress this assay. Reference Range HDL <40 mg/dL Low HDL Cholesterol HDL >or= 60 mg/dL High HDL Cholesterol Serum or plasma cholesterol in VLDL measurement (mass/volume)on 04-03-2022 Cholesterol in VLDL [Mass/Vol] 28 mg/dL 5-40 [facility] Work Phone: Serum or plasma creatinine m easurement (mass/volume)on 04-03-2022 Creatinine [Mass/Vol] 1.63 mg/dL 0.70-1.30 [facility] Work Phone: Comment on above: The validity of the calculated GFR & GFRAA in patients over 70 years has not been determined. Clinical correlation is essential. Serum or plasma low density lipoprotein (LDL) cholesterol measurement (mass/volume)on 04-03-2022 Cholesterol in LDL [Mass/Vol] 66 mg/dL 0-130 [facility] Work Phone: Serum or plasma urea nitroge n measurement (mass/volume)on 04-03-2022 Urea nitrogen [Mass/Vol] 47 mg/dL 7-18 [facility] Work Phone: Thin prep Papanicolaou smear with manual screeningon 04-03-2022 Thin prep Papanicolaou smear with manual screening 22 U/L 15-37 [facility] Work Phone: Thin prep Papanicolaou smear with manual screening 5 5-15 [facility] Work Phone: Whole blood hemoglobin A1c/t otal hemoglobin ratio (mass fraction)on 04-03-2022 HbA1c (Bld) [Mass fraction] 5.7 % 3.8-5.6 [facility] Work Phone: Comment on above: Normal < 5.7 % Predi abetic 5.7 - 6.4 % Diabetic >or= 6.5 % Please note range changes. 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 Left ventricular Ejection fraction 65 % [facility] Work Phone: Office Visiton 05-12-2016 Dietary management education, guidance, and counseling (procedure) yes Invalid Interpretation Code [facility] Work Phone: [phone] Documentation of current medications (procedure) Done Invalid Interpretation Code [facility] Work Phone: [phone] Tobacco smoking status NHIS Never smoker [facility] Work Phone: [phone] Tobacco use CPHS Never smoker Invalid Interpretation Code [facility] Work Phone: [phone] Replaced Document: Lipid Pro fileon 05-12-2016 Cholesterol 165 mg/dL 200 [facility] Work Phone: [phone] Cholesterol 46 mg/dL [facility] Work Phone: [phone] LDL Cholesterol 84 mg/dL 0-130 [facility] Work Phone: [phone] Triglyceride 176 mg/dL [facility] Work Phone: [phone] very low density lipoproteins 35 mg/dL 5-40 [facility] Work Phone: [phone] Replaced Document: Liver Pro fileon 05-12-2016 Alanine aminotransferase (ALT) 28 U/L 12-78 [facility] Work Phone: [phone] Albumin 3.5 g/dL 3.4-5.0 [facility] Work Phone: [phone] Alkaline phosphatase (ALP) 92 U/L Invalid Interpretation Code 50-136 [facility] Work Phone: [phone] ALP enzyme act/vol (Bld) 92 U/L 50-136 [facility] Work Phone: [phone] Aspartate aminotransferase (AST) 19 U/L 15-37 [facility] Work Phone: [phone] Bilirubin (direct) 0.18 mg/dL 0.00-0.30 [facility] Work Phone: [phone] Bilirubin (total) 0.90 mg/dL 0.20-1.00 [facility] Work Phone: [phone] Globulin 3.9 g/dL High 2.3-3.5 [facility] Work Phone: [phone] Globulin mass conc (S) 3.9 g/dL High 2.3-3.5 [facility] Work Phone: [phone] Protein 7.4 g/dL 6.4-8.2 [facility] Work Phone: [phone] Office Visiton 03-04-2015 cardiac risk group B [facility] Work Phone: [phone] General cardiovascular disease 10Y risk [#] [place] 11 % [facility] Work Phone: [phone] Clinical Lists Update: Prelo academic department chair 01-24-2015 Erythrocyte distribution width Ratio (RBC) 13.1 % [facility] Work Phone: [phone] Erythrocytes (RBC) 4.23 10*6/uL Low [facility] Work Phone: [phone] Hematocrit (HCT) 42.0 % Invalid Interpretation Code [facility] Work Phone: [phone] Hematocrit Volume Fraction (Bld) 42.0 % [facility] Work Phone: [phone] Hemoglobin (HGB) 14.5 g/dL [facility] Work Phone: [phone] MCH 34.3 pg High [facility] Work [phone] MCH Entitic mass (RBC) 34.3 pg High [facility] Work Phone: [phone] MCHC 34.5 g/dL Invalid Interpretation Code [facility] Work Phone: [phone] MCHC mass conc (RBC) 34.5 g/dL [facility] Work Phone: [phone] MCV 99.3 fL High [facility] Work [phone] MCV Entitic volume (RBC) 99.3 fL High [facility] Work Phone: [phone] Platelet mean volume Entitic volume (Bld) 10.5 fL [facility] Work Phone: [phone] Platelets 194 10*3/mm3 Invalid Interpretation Code [facility] Work Phone: [phone] Platelets #/vol (Bld) 194 10*3/mm3 [facility] Work Phone: [phone] PMV by Mac-Domenic 10.5 fL Invalid Interpretation Code [facility] Work Phone: [phone] RBC #/vol (Bld) 4.23 10*6/uL Low [facility] Work Phone: [phone] RDW-CA 13.1 % Invalid Interpretation Code [facility] Work [phone] WBC #/vol (Bld) 5.5 10*3/uL [facility] Work Phone: [phone] WBC (Leukocytes) 5.5 10*3/uL Invalid Interpretation Code [facility] Work Phone: [phone] Clinical Lists Update: Prelo academic department chair 12-14-2014 Anion gap 6 mmol/L Invalid Interpretation Code [facility] Work Phone: [phone] Anion gap molar conc 6 mmol/L [facility] Work Phone: [phone] BUN/Creatinine Ratio 18.3 mg/mg [facility] Work [phone] Calcium 8.8 mg/dL [facility] Work Phone: [phone] Chloride 107 mmol/L [facility] Work Phone: [phone] CO2 27.0 mmol/L Invalid Interpretation Code [facility] Work Phone: [phone] CO2 ppres (BldV) 27.0 mmol/L [facility] Work Phone: [phone] Creatinine 1.2 mg/dL [facility] Work Phone: [phone] Globulin 4.1 g/dL Invalid Interpretation Code [facility] Work Phone: [phone] Globulin mass conc (S) 4.1 g/dL [facility] Work Phone: [phone] Glucose 91 mg/dL Invalid Interpretation Code [facility] Work Phone: [phone] Glucose mass conc 91 mg/dL [facility] Work Phone: [phone] Potassium 3.6 mmol/L [facility] Work Phone: [phone] Sodium 140 mmol/L [facility] Work Phone: [phone] Thyroid stimulating hormone (TSH) 3.05 u[iU]/mL [facility] Work Phone: [phone] Urea nitrogen 22 mg/dL [facility] Work Phone: [phone] EKG Report: Myra ECG Obse rvationson 08-21-2013 GE use only - for [employer] import when terms are not otherwise specified 393 ms Invalid Interpretation Code [facility] Work Phone: [phone] QTc [place] 393 ms [facility] Work Phone: [phone] Replaced Document: Myra E CG Observationson 08-21-2013 EKG QRS axis -26 deg [facility] Work Phone: [phone] electrocardiogram interpretation 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 ABNORMAL Invalid Interpretation Code [facility] Work Phone: [phone] Interpretation Sinus Rhythm -consid er old anterior infarct . ABNORMAL [facility] Work Phone: [phone] P [place] 16 deg [facility] Work Phone: [phone] P wave axis, electrocardiogram 16 deg Invalid Interpretation Code [facility] Work Phone: AK Interval 182 ms [facility] Work Phone: AK interval, electrocardiogram 182 ms Invalid Interpretation Code [facility] Work Phone: Pulse (Heart Rate) 394 ms Invalid Interpretation Code [facility] Work Phone: Pulse (Heart Rate) 64 /min Invalid Interpretation Code [facility] Work Phone: [phone] QRS axis, electrocardiogram -26 deg Invalid Interpretation Code [facility] Work Phone: QRS Duration 96 ms [facility] Work Phone: QRS duration, electrocardiogram 96 ms Invalid Interpretation Code [facility] Work Phone: QT Interval new path ms [facility] Work Phone: QT interval, electrocardiogram new path ms Invalid Interpretation Code [facility] Work Phone: T [place] -1 deg [facility] Work Phone: T wave axis, electrocardiogram -1 deg Invalid Interpretation Code [facility] Work Phone: [phone] Office Visiton 08-15-2012 Alcoholism counseling (procedure) no Invalid Interpretation Code [facility] Work Phone: Protein mass conc no [facility] Work Phone: [phone] Vital Signs Date Time Vital Sign Value Performing Clinician Facility 08-06-2025 10:47-0400 Body height 175.3 cm Radha Merino MD Work Phone: [facility] 08-06-2025 10:47-0400 Body mass index (BMI) [Ratio] 32.96 kg/m2 Radha Merino MD Work Phone: [facility] 08-06-2025 10:47-0400 Body temperature 98.01 [degF] Radha Merino MD Work Phone: [facility] 08-06-2025 10:47-0400 Body weight 101.24 kg Radha Merino MD Work Phone: [facility] 08-06-2025 10:47-0400 Diastolic blood pressure 78 mm[Hg] Radha Merino MD Work Phone: [facility] 08-06-2025 10:47-0400 Heart rate 67 /min Radha Merino MD Work Phone: [facility] 08-06-2025 10:47-0400 Respiratory rate 16 /min Radha Merino MD Work Phone: [facility] 08-06-2025 10:47-0400 SaO2% (BldA) [Mass fraction] 96 % Radha Merino MD Work Phone: [facility] 08-06-2025 10:47-0400 Systolic blood pressure 128 mm[Hg] Radha Merino MD Work Phone: [facility] 07-31-2025 09:53-0400 Body height 172.[address] Radha Merino MD Work Phone: [facility] 07-31-2025 09:53-0400 Body mass index (BMI) [Ratio] 34 kg/m2 Dr. Radha Merino MD Work Phone: [facility] 07-31-2025 09:53-0400 Body temperature 97.4 [degF] Dr. Radha Merino MD Work Phone: [facility] 07-31-2025 09:53-0400 Body weight 101.[address] Radha Merino MD Work Phone: [facility] 07-31-2025 09:53-0400 Diastolic blood pressure 71 mm[Hg] Dr. Radha Merino MD Work Phone: [facility] 07-31-2025 09:53-0400 Heart rate 80 /min Dr. Radha Merino MD Work Phone: [facility] 07-31-2025 09:53-0400 Respiratory rate 16 /min Dr. Radha Merino MD Work Phone: [phone] [place] [address] 07-31-2025 09:53-0400 SaO2% (BldA) [Mass fraction] 96 % Dr. Radha Merino MD Work Phone: [facility] 07-31-2025 09:53-0400 Systolic blood pressure 120 mm[Hg] Dr. Radha Mernio MD Work Phone: [facility] 01-31-2025 08:36-0400 Body height 172.[address] Radha Merino MD Work Phone: [facility] 01-31-2025 08:36-0400 Body mass index (BMI) [Ratio] 34.4 kg/m2 Dr. Radha Merino MD Work Phone: [facility] 01-31-2025 08:36-0400 Body temperature 97.7 [degF] Dr. Radha Merino MD Work Phone: [facility] 01-31-2025 08:36-0400 Body weight 102.[address] Radha Merino MD Work Phone: [facility] 01-31-2025 08:36-0400 Diastolic blood pressure 74 mm[Hg] Dr. Radha Merino MD Work Phone: [facility] 01-31-2025 08:36-0400 Heart rate 78 /min Dr. Radha Merino MD Work Phone: [facility] 01-31-2025 08:36-0400 Respiratory rate 16 /min Dr. Radha Merino MD Work Phone: [facility] 01-31-2025 08:36-0400 SaO2% (BldA) [Mass fraction] 93 % Dr. Radha Merino MD Work Phone: [facility] 01-31-2025 08:36-0400 Systolic blood pressure 155 mm[Hg] Dr. Radha Merino MD Work Phone: [facility] 01-29-2025 10:24-0400 Body height 175.3 cm Radha Merino MD Work Phone: [facility] 01-29-2025 10:24-0400 Body mass index (BMI) [Ratio] 33.67 kg/m2 Radha Merino MD Work Phone: [facility] 01-29-2025 10:24-0400 Body temperature 97.3 [degF] Radha Merino MD Work Phone: [facility] 01-29-2025 10:24-0400 Body weight 103.42 kg Radha Merino MD Work Phone: [facility] 01-29-2025 10:24-0400 Diastolic blood pressure 68 mm[Hg] Radha Merino MD Work Phone: [facility] 01-29-2025 10:24-0400 Heart rate 80 /min Radha Merino MD Work Phone: [facility] 01-29-2025 10:24-0400 Respiratory rate 18 /min Radha Merino MD Work Phone: [facility] 01-29-2025 10:24-0400 SaO2% (BldA) [Mass fraction] 95 % Radha Merino MD Work Phone: [facility] 01-29-2025 10:24-0400 Systolic blood pressure 124 mm[Hg] Radha Merino MD Work Phone: [facility] 01-11-2025 13:21-0500 Body mass index (BMI) [Ratio] 34.7 kg/m2 Dr. Radha Merino MD Work Phone: [facility] 01-11-2025 [id number] Body weight 103.[address] Radha Merino MD Work Phone: [facility] 07-26-2024 15:040 Body height 175.3 cm Radha Merino MD Work Phone: [facility] 07-26-2024 15:040 Body mass index (BMI) [Ratio] 32.49 kg/m2 Radha Merino MD Work Phone: [facility] 07-26-2024 15:040 Body temperature 97.9 [degF] Radha Merino MD Work Phone: [facility] 07-26-2024 15:040 Body weight 99.79 kg Radha Merino MD Work Phone: [facility] 07-26-2024 15:26-040 Diastolic blood pressure 78 mm[Hg] Radha Merino MD Work Phone: [facility] 07-26-2024 15:26-0400 Heart rate 60 /min Radha Merino MD Work Phone: [facility] 07-26-2024 [id number] Respiratory rate 18 /min Radha Merino MD Work Phone: [facility] 07-26-2024 15:26-0400 SaO2% (BldA) [Mass fraction] 99 % Radha Merino MD Work Phone: [facility] 07-26-2024 [id number]:26040 Systolic blood pressure 138 mm[Hg] Radha Merino MD Work Phone: [facility] 04-10-2024 16:27-0400 Body height 175.3 cm Radha Merino MD Work Phone: [facility] 04-10-2024 16:27-0400 Body mass index (BMI) [Ratio] 32.34 kg/m2 Radha Merino MD Work Phone: [facility] 04-10-2024 16:27-0400 Body temperature 97.59 [degF] Radha Merino MD Work Phone: [facility] 04-10-2024 16:27-0400 Body weight 99.34 kg Radha Merino MD Work Phone: [facility] 04-10-2024 16:27-0400 Diastolic blood pressure 76 mm[Hg] Radha Merino MD Work Phone: [facility] 04-10-2024 16:27-0400 Heart rate 64 /min Radha Merino MD Work Phone: [facility] 04-10-2024 16:27-0400 Respiratory rate 18 /min Radha Merino MD Work Phone: [facility] 04-10-2024 16:27-0400 SaO2% (BldA) [Mass fraction] 97 % Radha Merino MD Work Phone: [facility] 04-10-2024 16:27-0400 Systolic blood pressure 118 mm[Hg] Radha Merino MD Work Phone: [facility] 03-30-2024 08:32-0400 Body height 175.[address] Radha Merino Work Phone: [facility] 03-30-2024 08:32-0400 Body mass index (BMI) [Ratio] 32.1 kg/m2 Dr. Radha Merino Work Phone: [facility] 03-30-2024 08:32-0400 Body temperature 97.8 [degF] Dr. Radha Merino Work Phone: [facility] 03-30-2024 08:32-0400 Body weight 98.[address] Radha Merino Work Phone: [facility] 05-09-2024 08:32-0400 Diastolic blood pressure 68 mm[Hg] Dr. Radha Merino Work Phone: [facility] 03-30-2024 08:32-0400 Heart rate 65 /min Dr. Radha Merino Work Phone: [facility] 03-30-2024 08:32-0400 Respiratory rate 17 /min Dr. Radha Merino Work Phone: [facility] 03-30-2024 08:32-0400 SaO2% (BldA) [Mass fraction] 96 % Dr. Radha Merino Work Phone: [facility] 03-30-2024 08:32-0400 Systolic blood pressure 138 mm[Hg] Dr. Radha Merino Work Phone: [facility] 03-27-2024 09:06-0400 Body mass index (BMI) [Ratio] 31.8 kg/m2 Dr. Radha Merino Work Phone: [facility] 03-27-2024 09:06-0400 Body weight 97.[address] Radha Merino Work Phone: [facility] 03-27-2024 09:06-0400 Diastolic blood pressure 71 mm[Hg] Dr. Radha Merino Work Phone: [facility] 03-27-2024 09:06-0400 Heart rate 68 /min Dr. Radha Merino Work Phone: [facility] 03-27-2024 09:06-0400 SaO2% (BldA) [Mass fraction] 94 % Dr. Radha Merino Work Phone: [facility] 03-27-2024 09:06-0400 Systolic blood pressure 162 mm[Hg] Dr. Radha Merino Work Phone: [facility] 02-12-2024 16:13-0400 Body temperature 98.3 [degF] Dr. Radha Merino Work Phone: [facility] 02-12-2024 16:13-0400 Diastolic blood pressure 59 mm[Hg] Dr. Radha Merino Work Phone: [facility] 02-12-2024 16:13-0400 Heart rate 64 /min Dr. Radha Merino Work Phone: [facility] 02-12-2024 16:13-0400 Respiratory rate 14 /min Dr. Radha Merino Work Phone: [facility] 02-12-2024 16:13-0400 SaO2% (BldA) [Mass fraction] 100 % Dr. Radha Merino Work Phone: [facility] 02-12-2024 16:13-0400 Systolic blood pressure 123 mm[Hg] Dr. Radha Merino Work Phone: [facility] 02-10-2024 10:19-0400 Body height 175.[address] Radha Merino Work Phone: [facility] 02-10-2024 10:19-0400 Body mass index (BMI) [Ratio] 31.4 kg/m2 Dr. Radha Merino Work Phone: [facility] 02-10-2024 10:19-0400 Body weight 96.[address] Radha Merino Work Phone: [facility] 02-08-2024 14:00-0400 Diastolic blood pressure 70 mm[Hg] [facility] 02-08-2024 14:00-0400 Heart rate 89 /min [facility] 02-08-2024 14:00-0400 Respiratory rate 18 /min [facility] 02-08-2024 14:00-0400 SaO2% (BldA) [Mass fraction] 93 % [facility] 02-08-2024 14:00-0400 Systolic blood pressure 120 mm[Hg] [facility] 02-08-2024 12:19-0400 Body temperature 97.6 [degF] [facility] 02-08-2024 10:04-0400 Body height 175.26 cm [facility] 02-08-2024 10:04-0400 Body mass index (BMI) [Ratio] 31.4 kg/m2 [facility] 02-08-2024 10:04-0400 Body weight 96.7 kg [facility] 10-21-2023 08:59-0500 Body weight 98.93 kg Eleonora Hillman MD Work Phone: [facility] 10-21-2023 08:59-0500 Diastolic blood pressure 58 mm[Hg] Eleonora Hillman MD Work Phone: [facility] 10-21-2023 08:59-0500 Heart rate 75 /min Eleonora Hillman MD Work Phone: [facility] 10-21-2023 08:59-0500 Systolic blood pressure 116 mm[Hg] Eleonora Hillman MD Work Phone: [facility] 06-07-2023 10:51-0400 Heart rate 62 /min Radha Merino MD Work Phone: [facility] 04-28-2023 09:08-0400 Body height 175.3 cm Tino Garcia MD Work Phone: [facility] 04-28-2023 09:08-0400 Body weight 97.07 kg Tino Garcia MD Work Phone: [facility] 03-15-2023 15:54-0400 Body height 175.3 cm Radha Merino MD Work Phone: [facility] 03-15-2023 15:54-0400 Body temperature 97.3 [degF] Radha Merino MD Work Phone: [facility] 03-15-2023 15:54-0400 Body weight 98.34 kg Radha Merino MD Work Phone: [facility] 03-15-2023 15:54-0400 Diastolic blood pressure 76 mm[Hg] Radha Merino MD Work Phone: [facility] 03-15-2023 15:54-0400 Heart rate 70 /min Radha Merino MD Work Phone: [facility] 03-15-2023 15:54-0400 Respiratory rate 18 /min Radha Merino MD Work Phone: [facility] 03-15-2023 15:54-0400 SaO2% (BldA) [Mass fraction] 99 % Radha Merino MD Work Phone: [facility] 03-15-2023 15:54-0400 Systolic blood pressure 130 mm[Hg] Radha Merino MD Work Phone: [facility] 12-07-2022 10:06-0500 Body height 175.3 cm Radha Merino MD Work Phone: [facility] 12-07-2022 10:06-0500 Body temperature 96.91 [degF] Radha Merino MD Work Phone: [facility] 12-07-2022 10:06-0500 Body weight 96.62 kg Radha Merino MD Work Phone: [facility] 12-07-2022 10:06-0500 Diastolic blood pressure 70 mm[Hg] Radha Merino MD Work Phone: [facility] 12-07-2022 10:06-0500 Heart rate 73 /min Radha Merino MD Work Phone: [facility] 12-07-2022 10:06-0500 Respiratory rate 16 /min Radha Merino MD Work Phone: [facility] 12-07-2022 10:06-0500 SaO2% (BldA) [Mass fraction] 98 % Radha Merino MD Work Phone: [facility] 12-07-2022 10:06-0500 Systolic blood pressure 138 mm[Hg] Radha Merino MD Work Phone: [facility] 10-12-2022 08:29-0500 Body height 175.[address] Radha Merino Work Phone: [facility] Work Phone: 10-12-2022 08:29-0500 Body mass index (BMI) [Ratio] 31.4 kg/m2 Dr. Radha Merino Work Phone: [facility] Work Phone: 10-12-2022 08:29-0500 Body temperature 98.4 [degF] Dr. Radha Merino Work Phone: [facility] Work Phone: 10-12-2022 08:29-0500 Body weight 96.[address] Radha Merino Work Phone: [facility] Work Phone: 10-12-2022 08:29-0500 Diastolic blood pressure 68 mm[Hg] Dr. Radha Merino Work Phone: [facility] Work Phone: 10-12-2022 08:29-0500 Heart rate 72 /min Dr. Radha Merino Work Phone: [facility] Work Phone: 10-12-2022 08:29-0500 Respiratory rate 16 /min Dr. Radha Merino Work Phone: [facility] Work Phone: 10-12-2022 08:29-0500 SaO2% (BldA) [Mass fraction] 97 % Dr. Radha Merino Work Phone: [facility] Work Phone: 10-12-2022 08:29-0500 Systolic blood pressure 124 mm[Hg] Dr. Radha Merino Work Phone: [facility] Work Phone: 09-15-2022 11:04-0400 Body mass index (BMI) [Ratio] 31.1 kg/m2 Dr. Radha Merino Work Phone: [facility] Work Phone: 09-15-2022 11:04-0400 Body weight 95.[address] Radha Merino Work Phone: [facility] Work Phone: 09-15-2022 11:04-0400 Diastolic blood pressure 76 mm[Hg] Dr. Radha Merino Work Phone: [facility] Work Phone: 09-15-2022 11:04-0400 Heart rate 72 /min Dr. Radha Merino Work Phone: [facility] Work Phone: 09-15-2022 11:04-0400 Respiratory rate 16 /min Dr. Radha Merino Work Phone: [facility] Work Phone: 09-15-2022 11:04-0400 SaO2% (BldA) [Mass fraction] 95 % Dr. Radha Merino Work Phone: [facility] Work Phone: 09-15-2022 11:04-0400 Systolic blood pressure 133 mm[Hg] Dr. Radha Merino Work Phone: [facility] Work Phone: 06-24-2022 10:21-0400 Body height 175.3 cm Radha Merino MD Work Phone: [facility] 06-24-2022 10:21-0400 Body temperature 97.9 [degF] Radha Merino MD Work Phone: [facility] 06-24-2022 10:21-0400 Body weight 96.71 kg Radha Merino MD Work Phone: [facility] 06-24-2022 10:21-0400 Diastolic blood pressure 78 mm[Hg] Radha Merino MD Work Phone: [facility] 06-24-2022 10:21-0400 Heart rate 68 /min Radha Merino MD Work Phone: [facility] 06-24-2022 10:21-0400 Respiratory rate 18 /min Radha Merino MD Work Phone: [facility] 06-24-2022 10:21-0400 SaO2% (BldA) [Mass fraction] 98 % Radha Merino MD Work Phone: [facility] 06-24-2022 10:21-0400 Systolic blood pressure 118 mm[Hg] Radha Merino MD Work Phone: [facility] 05-04-2022 14:28-0400 Diastolic blood pressure 66 mm[Hg] [facility] Work Phone: 05-04-2022 14:28-0400 Heart rate 62 /min [facility] Work Phone: 05-04-2022 14:28-0400 Respiratory rate 17 /min [facility] Work Phone: 05-04-2022 14:28-0400 SaO2% (BldA) [Mass fraction] 97 % [facility] Work Phone: 05-04-2022 14:28-0400 Systolic blood pressure 101 mm[Hg] [facility] Work Phone: 05-04-2022 12:29-0400 Body height 175.26 cm [facility] Work Phone: 05-04-2022 12:29-0400 Body mass index (BMI) [Ratio] 30.2 kg/m2 [facility] Work Phone: 05-04-2022 12:29-0400 Body temperature 97.6 [degF] [facility] Work Phone: 05-04-2022 12:29-0400 Body weight 92.98 kg [facility] Work Phone: 06-08-2017 14:53-0400 BMI (Body Mass Index) 32.42 kg/m2 [facility] Work Phone: 06-08-2017 14:53-0400 BP Diastolic 80 mm[Hg] [facility] Work Phone: 06-08-2017 14:53-0400 BP Systolic 136 mm[Hg] [facility] Work Phone: 06-08-2017 14:53-0400 Pulse (Heart Rate) 62 /min [facility] Work Phone: 06-08-2017 14:53-0400 Weight 102.51 kg [facility] Work Phone: 05-26-2016 08:27-0400 BP Diastolic 68 mm[Hg] Kimmy Israel RN [facility] Work Phone: 05-26-2016 08:27-0400 BP Systolic 128 mm[Hg] Kimmy Israel RN [facility] Work Phone: 05-26-2016 08:27-0400 Pulse (Heart Rate) 64 /min Kimmy Israel RN [facility] Work Phone: 05-26-2016 08:27-0400 Respiratory Rate 20 /min Kimmy Israel RN [facility] Work Phone: 05-26-2016 08:27-0400 Weight 101.42 kg Kimmy Israel RN [facility] Work Phone: 05-12-2016 10:43-0400 BMI (Body Mass Index) 31.85 kg/m2 [facility] Work Phone: 05-12-2016 10:43-0400 BSA (Body Surface Area) 2.18 m2 Kimmy Israel RN [facility] Work Phone: 05-12-2016 10:43-0400 Height 177.8 cm Kimmy Israel RN [facility] Work Phone: 08-21-2013 10:04-0400 Heart rate 64 /min [facility] Work Phone: 08-21-2013 10:04-0400 Heart rate 394 ms [facility] Work Phone: Encounters Encounter Date Encounter Type Care Provider Facility Start: 10-26-2025 [facility] Facility: [facility] Start: 09-26-2025 End: 09-26-2025 ambulatory Radhaingrid Merino Facility:[facility] Start: 08-17-2025 End: 08-17-2025 ambulatory RADHA MERINO Facility:[facility] Start: 08-07-2025 End: 08-07-2025 ambulatory RADHA MERINO Facility:[facility] Start: 08-06-2025 End: 08-06-2025 Patient encounter procedure Radha Merino MD Work Phone: [facility] [place] Comment on above: Wellness examination (Primary Dx); Screening for depression; Encounter for screening examination for other mental health and behavioral disorders; Hypertension, benign; Mixed hyperlipidemia; Impaired glucose tolerance; Screening for deficiency anemia; Screening PSA (prostate specific antigen) Start: 08-06-2025 End: 08-06-2025 Patient encounter status Radha Merino MD Work Phone: [facility] Work Phone: Start: 08-06-2025 End: 08-06-2025 ambulatory RADHAINGRID MERINO Facility:[id number] Start: 08-06-2025 Encounter for genera l adult medical examination without abnormal findings RADHAINGRID SCHREIBERGUILLERMO GEORGEON [facility] Start: 07-31-2025 End: 07-31-[address] Radha Diaz MD -[facility] Work Phone: Start: 07-31-2025 End: 07-31-[address] Radha Merino MD Work Phone: -[facility] Start: 02-13-2025 End: 02-14-2025 Patient encounter procedure [facility] Provider [facility] Start: 02-13-2025 End: 02-13-2025 ambulatory Radha Merino Facility:[facility] Start: 02-10-2025 End: 02-10-[address] Radha Merino MD Work Phone: [facility] Work Phone: Start: 02-10-2025 End: 02-10-[address] Luis Nguyễn MD -[facility] Work Phone: Start: 02-10-2025 End: 02-10-2025 ambulatory Luis Nguyễn Facility:[facility] Start: 01-31-2025 End: 02-01-2025 Patient encounter procedure [facility] Provider [facility] Start: 01-31-2025 End: 01-31-2025 ambulatory Faisal Shlomo Facility:[facility] Start: 01-30-2025 End: 01-30-2025 ambulatory RADHA MERINO Facility:[facility] Start: 01-29-2025 End: 01-29-2025 Telephone encounter Radha Merino MD Work Phone: [facility] Comment on above: Pays out of pocket f or Sildenafil Start: 01-29-2025 End: 01-29-2025 Office outpatient visit 25 minutes Radha Merino MD Work Phone: [facility] Comment on above: Hypertension, benign (Primary Dx); Gastroesophageal reflux disease without esophagitis; Impaired glucose tolerance; Mixed hyperlipidemia; Gout involving toe of right foot, unspecified cause, unspecified chronicity; Erectile dysfunction, unspecified erectile dysfunction type Start: 01-29-2025 End: 01-29-2025 ambulatory RADHA MERINO Facility:[id number] Start: 01-11-2025 End: 01-12-2025 Patient encounter procedure [facility] Provider [facility] inic Department Start: 01-11-2025 End: 01-11-2025 ambulatory Radha Merino Facility:[facility] Start: 10-24-2024 End: 10-24-2024 Refill Radha Merino MD Work Phone: [facility] Comment on above: Refill Request Start: 10-06-2024 End: 10-09-2024 Patient encounter procedure [facility] Provider [facility] inic Department Start: 10-06-2024 End: 10-06-2024 ambulatory Radha Merino Facility:[facility] Start: 08-23-2024 End: 08-28-2024 Refill Radha Merino MD Work Phone: [facility] Comment on above: Refill Request Start: 08-17-2024 End: 08-17-2024 Telephone encounter Eleonora Hillman MD Work Phone: Endocrine Surgery Comment on above: Results (Parathyroid labs/) Start: 07-26-2024 End: 07-26-2024 Patient encounter procedure Radha Merino MD Work Phone: [facility] Comment on above: Wellness examination (Primary Dx); Screening for depression; Encounter for screening examination for other mental health and behavioral disorders; Advance care planning; Hypertension, benign; Mixed hyperlipidemia; Gastroesophageal reflux disease without esophagitis; Farias's esophagus without dysplasia; Impaired glucose tolerance; Gout involving toe of right foot, unspecified cause, unspecified chronicity; Screening PSA (prostate specific antigen); Anemia, unspecified type; Polyneuropathy; Burning sensation of feet; Paresthesia of both hands; Edema of lower extremity; Obesity, Class I, BMI 30-34.9; Erectile dysfunction, unspecified erectile dysfunction type; Medicare annual wellness visit, subsequent Start: 07-26-2024 End: 07-26-2024 Patient encounter status Radha Merino MD Work Phone: [facility] Start: 07-12-2024 End: 07-12-2024 Subsequent hospital visit by physician [facility] (I-Stat) Work Phone: Cat Scan Comment on above: 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] Start: 06-22-2024 End: 06-22-2024 [facility] Manjeet Massey MD Work Phone: Urology Comment on above: Adrenal mass (HCC) ( Primary Dx); Disorder of adrenal gland (HCC) Sodium Citrate Start: 05-13-2024 Refill Radha Madrigal MD Work Phone: [facility] Comment on above: Refill Request Start: 05-12-2024 Chart abstracting Radha Merino MD Work Phone: [facility] Start: 05-05-2024 End: 05-05-2024 ambulatory Charlene Martinez APRN.IGNITION EXPERT Work Phone: Urology Comment on above: Recurrent nephrolith iasis (Primary Dx); Phosphate calculi; Horseshoe kidney; S/P parathyroidectomy; Calcium oxalate calculus; Low urine output; Hypocitraturia; Aciduria (HCC); Hypernatriuria; Adrenal mass, left (HCC) Start: 05-05-2024 End: 05-05-2024 Telemedicine consultation with patient Charlene Martinez APRN.IGNITION EXPERT Work Phone: Urology Start: 05-03-2024 Patient encounter procedure [facility] Department Start: 04-20-2024 Patient encounter procedure [facility] Department Start: 04-10-2024 End: 04-10-2024 Office outpatient visit 25 minutes Radha Merino MD Work Phone: [facility] Comment on above: Preop examination (P rimary Dx); Hypertension, benign Start: 04-10-2024 End: 04-10-2024 Preprocedural examination done Radha Merino MD Work Phone: [facility] Work Phone: Start: 03-30-2024 Chart abstracting Radha Merino MD Work Phone: [facility] Start: 03-30-2024 End: 03-30-[address] Radha Merino Work Phone: [facility] Work Phone: Start: 03-27-2024 End: 03-27-[address] Radha Merino Work Phone: [facility] Work Phone: Start: 03-27-2024 End: 03-27-[address] Radha Merino Work Phone: [facility] Work Phone: Start: 03-02-2024 ambulatory Kika Dietrich RN [facility] Distribution [employer] Comment on above: Primary Care Coordin ator Chronic Care Start: 02-29-2024 ambulatory [facility] [employer] Start: 02-14-2024 Patient Outreach Kika Dietrich RN [facility] Distribution [employer] Comment on above: Transition Of Care Start: 02-12-2024 Non-patient / Non-visit Dr. Ra umang Merino Work Phone: [facility] Work Phone: Start: 02-11-2024 Non-patient / Non-visit Dr. Ra umang Merino Work Phone: [facility] Start: 02-11-2024 Non-patient / Non-visit Dr. Ra umang Merino Work Phone: [facility] Work Phone: Start: 02-10-2024 Non-patient / Non-visit Dr. Ra umang Merino Work Phone: [facility] Start: 02-10-2024 Non-patient / Non-visit Dr. Ra umang Merino Work Phone: [facility] Work Phone: Start: 02-09-2024 Non-patient / Non-visit Dr. Ra umang Merino Work Phone: [facility] Work Phone: Start: 02-08-2024 Non-patient / Non-visit Dr. Ra umang Merino Work Phone: [facility] Start: 02-08-2024 Patient encounter procedure [facility] Prov ider [facility] Department Start: 02-08-2024 End: 02-12-2024 Evaluation and management of inpatient [facility]-Medical Surgical 3 Work Phone: Start: 01-24-2024 End: 01-24-2024 ambulatory [facility] Work Phone: Start: 01-24-2024 End: 01-24-2024 Patient encounter procedure [facility], [facility] Work Phone: Start: 01-20-2024 End: 01-20-2024 ambulatory Eleonora Hillman MD Work Phone: Endocrine Surgery Comment on above: Hyperparathyroidism (HCC) (Primary Dx) Start: 01-20-2024 End: 01-20-2024 Telemedicine consultation with patient Eleonora Hillman MD Work Phone: [facility] Start: 12-31-2023 Telephone encounter Eleonora iHllman MD Work Phone: Endocrine Surgery Comment on above: Post Op Start: 10-21-2023 End: 10-21-2023 Subsequent hospital visit by physician [facility] Work Phone: Molecular Imaging Comment on above: Hyperparathyroidism (HCC) [E21.3] Start: 10-21-2023 End: 10-21-2023 Patient encounter procedure Eleonora Hillman MD Work Phone: Endocrine Surgery Comment on above: Phosphate calculi; Hyperparathyroid (HCC) Start: 10-21-2023 End: 10-21-2023 Subsequent hospital visit by physician [facility] Start: 10-20-2023 End: 10-20-2023 Subsequent hospital visit by physician [facility] Work Phone: Radiology Comment on above: Hyperparathyroidism (HCC) [E21.3] Start: 10-05-2023 Telephone encounter Eleonora Hillman MD Work Phone: Endocrine Surgery Comment on above: Consult (FACE SHEET) Start: 06-21-2023 Patient encounter procedure [facility] Prov ider [facility] Department Start: 06-07-2023 End: 06-07-2023 Patient encounter procedure Radha Merino MD Work Phone: [facility] [place] Comment on above: Wellness examination (Primary Dx); Chronic midline low back pain without sciatica; Hypertension, essential; Pure hypercholesterolemia; Screening for deficiency anemia Start: 06-07-2023 End: 06-07-2023 Patient encounter status Radha Merino MD Work Phone: [facility] Work Phone: Start: 04-28-2023 End: 04-28-2023 Patient encounter procedure Tino Garcia MD Work Phone: Urology Comment on above: Horseshoe kidney (Pr imary Dx); Left nephrolithiasis Start: 04-22-2023 ambulatory Tino Garcia MD Work Phone: Urology Comment on above: post -op check in Start: 04-22-2023 E-mail encounter reggie mcgrath caregiver Tino Garcia MD Work Phone: [facility] Start: 04-21-2023 Telephone encounter Tino Garcia MD Work Phone: Urology Comment on above: Medication Question Start: 04-05-2023 End: 04-05-2023 ambulatory Tino Garcia MD Work Phone: Urology Comment on above: Horseshoe kidney (Pr imary Dx); Left nephrolithiasis; Left ureteral stone Start: 04-05-2023 End: 04-05-2023 Telemedicine consultation with patient Tino Garcia MD Work Phone: [facility] Start: 03-25-2023 ambulatory Yumiko combs MD Work Phone: Urology Comment on above: CT scan results Start: 03-25-2023 E-mail encounter reggie m caregiver Yumiko Hernandez MD Work Phone: [facility] Start: 03-25-2023 Telephone encounter Yumiko carrillo MD Work Phone: Urology Comment on above: Consult Start: 03-24-2023 End: 03-24-2023 Subsequent hospital visit by physician [facility] (I-Stat) Work Phone: Cat Scan Comment on above: History of nephrolit hiasis [Z87.442] Start: 03-18-2023 ambulatory Yumiko combs MD Work Phone: Urology Comment on above: Urine test results Start: 03-18-2023 E-mail encounter reggie mcgrath caregiver Yumiko Hernandez MD Work Phone: [facility] 2 Start: 03-17-2023 ambulatory Yumiko combs MD Work Phone: Urology Comment on above: Lab work Start: 03-17-2023 Chart abstracting Radha Merino MD Work Phone: [facility] Start: 03-17-2023 E-mail encounter reggie mcgrath caregiver Yumiko Hernandez MD Work Phone: [facility] 2 Start: 03-16-2023 End: 03-16-[address] Radha Merino Work Phone: [facility] Work Phone: Start: 03-16-2023 End: 03-17-2023 ambulatory RADHA MERINO Facility:[facility] Start: 03-16-2023 End: 03-16-2023 Patient encounter procedure Yumiko Hernandez MD Work Phone: Urology Comment on above: History of nephrolit hiasis (Primary Dx) Start: 03-15-2023 End: 03-15-2023 Office outpatient visit 15 minutes Radha Merino MD Work Phone: [facility] Comment on above: Nephrolithiasis (Radha hermann Dx) Start: 03-11-2023 ambulatory Iris Umanzor RN [facility] Start: 03-11-2023 Patient encounter procedure Iris rivas RN NURSE COMPOSITE SCIENCE TEACHER Comment on above: Appointment (Urology consult/) Start: 03-06-2023 End: 03-06-[address] Radha Merino Work Phone: [facility] Work Phone: Start: 03-06-2023 End: 03-06-[address] [facility] Start: 02-22-2023 ambulatory Radha Madrigal MD Work Phone: [facility] Comment on above: Catscan Start: 02-17-2023 Chart abstracting Radha Merino MD Work Phone: [facility] Start: 02-16-2023 End: 02-16-[address] Radha Merino Work Phone: [facility] Work Phone: Start: 02-16-2023 End: 02-16-[address] Radha Merino Work Phone: [facility]-Cat Scan, [facility] Start: 02-11-2023 End: 02-11-[address] Radha Merino Work Phone: [facility] Work Phone: Start: 02-11-2023 End: 02-11-[address] Radha Merino Work Phone: [facility]-Nuclear Medicine, [facility] Start: 02-05-2023 End: 02-05-[address] Radha Merino Work Phone: [facility] Work Phone: Start: 02-05-2023 End: 02-05-[address] Radha Merino Work Phone: [facility] Start: 12-07-2022 End: 12-07-2022 Office outpatient visit 15 minutes Radha Merino MD Work Phone: [facility] Comment on above: Chronic constipation (Primary Dx); Pure hypercholesterolemia; Hypertension, essential; Hyperglycemia Start: 10-12-2022 End: 11-21-[address] Radha Merino Work Phone: [facility] Work Phone: Start: 10-12-2022 End: 10-12-[address] Radha Merino Work Phone: [facility] Neurology Start: 09-15-2022 End: 09-15-[address] Radha Merino Work Phone: [facility] Start: 09-08-2022 End: 09-08-[address] Radha Merino Work Phone: [facility] Start: 09-01-2022 Refill Radha Madrigal MD Work Phone: [facility] Comment on above: Refill Request Start: 08-29-2022 Refill Radha Madrigal MD Work Phone: [facility] Comment on above: Refill Request Start: 07-29-2022 Refill Radha Madrigal MD Work Phone: [facility] Comment on above: Refill Request Start: 06-30-2022 Telephone encounter Radha Merino MD Work Phone: [facility] Comment on above: Medication Problem Start: 06-24-2022 End: 06-24-2022 Office outpatient visit 15 minutes Radha Merino MD Work Phone: [facility] Comment on above: Gastroenteritis (Radha hermann Dx); Personal history of COVID-19; ED (erectile dysfunction) of organic origin Start: 06-08-2022 Refill Radha Madrigal MD Work Phone: [facility] Comment on above: Refill Request Start: 05-04-2022 End: 05-04-2022 Emergency department patient visit [facility]-Emergency Department Start: 04-03-2022 End: 04-03-2022 Patient encounter procedure [facility] [place] Procedures Date Procedure Procedure Detail Performing Clinician Start: 08-06-2025 Adult depression scr eening assessment Radha Merino MD Work Phone: Start: 02-10-2025 MRI of lumbar spine Dr. Radha Merino MD Work Phone: Start: 01-11-2025 X-ray of lumbosacral spine Dr. Radha Merino MD Work Phone: Start: 07-26-2024 Adult depression scr eening assessment Radha Merino MD Work Phone: Start: 07-12-2024 Ct abdomen w/o & w/c ontrast material Manjeet Massey MD Work Phone: Start: 05-03-2024 CBCDIF (EXTERNAL) Other Start: 03-27-2024 Comprehensive metabo lic 2000 panel - Serum or Plasma Other (Hist) Work Phone: Start: 03-27-2024 LIPID PANEL BASIC Other Start: 02-10-[address] e detection Dr. Radha Merino Work Phone: Start: 02-10-[address] Dariel Merino Work Phone: Start: 02-08-2024 Measurement of occul t blood in stool specimen using immunoassay Start: 02-08-2024 Computed tomography of abdomen and pelvis with intravenous contrast Start: 01-24-2024 Ultrasound elastogra phy of liver Start: 10-20-2023 Dxa bone density evi dy 1/> sites axial skel Eleonora Hillman MD Work Phone: Start: 04-28-2023 Urnls dip stick/tabl et rgnt auto w/o microscopy Tino Garcia MD Work Phone: Start: 03-24-2023 Ct abdomen & pelvis w/o contrast material Yumiko Hernandez MD Work Phone: Start: 03-16-2023 AMMONIA MARYAN Zuniga Friend DO Work Phone: Start: 03-16-2023 Comprehensive metabo lic 2000 panel - Serum or Plasma Portillo Zuniga Friend DO Work Phone: Start: 03-16-2023 Hemoglobin A1c/Hemoglobin.total in Blood Portillo Zuniga Friend DO Work Phone: Start: 03-16-2023 HIV Portillo B Friend DO Work Phone: Start: 03-06-2023 Ultrasound elastogra phy of liver Dr. Radha Merino Work Phone: Start: 02-16-2023 CREATINE BLOOD Other (H ist) Work Phone: Start: 02-16-2023 Computed tomography of abdomen and pelvis with contrast Dr. Radha Merino Work Phone: Start: 02-11-2023 [address] emptying study Dr. Radha Merino Work Phone: Start: 06-24-2022 Adult depression scr [...] Sanchez Work Phone: Start: 08-21-2013 End: 08-21-2013 ANAN Amari Forman MD Work Phone: Start: 08-21-2013 End: [...] Detail Author Start: 06-07-2033 Urine microalbumin profile [facility] Start: 08-07-2028 Diabetes Screening Diabetes Screening [facility] Start: 01-31-2028 Diabetes Screening Diabetes Screening [facility] Start: 07-31-2027 Diabetes Screening Diabetes Screening [facility] Start: 06-23-2027 Diabetes Screening Diabetes Screening [facility] Start: 03-27-2027 Diabetes Screening Diabetes Screening [facility] Start: 02-15-2027 Diabetes Screening Diabetes Screening [facility] Start: 10-22-2026 Diabetes Screening Diabetes Screening [facility] Start: 09-30-2026 Diabetes Screening Diabetes Screening [facility] Start: 08-06-2026 Anxiety Screening Anxiety Screening [facility] Start: 08-06-2026 Depression Screening Depression Screening [facility] Start: 08-06-2026 Medicare Annual Wellness Visit Medicare Annual Wellness Visit [facility] Start: 06-08-2026 DIABETES SCREEN DIABETES SCREEN [facility] Start: 06-08-2026 Diabetes Screening Diabetes Screening [facility] Start: 03-16-2026 DIABETES SCREEN DIABETES SCREEN [facility] Start: 02-06-2026 End: 02-06-2026 Patient encounter procedure 02/06/2026 11:00 AM EDT Office Visit [facility] [address] [place] [phone] Radha eMrino MD [address] [place] [address] 6 month chronic follow up [facility] Comment on above: 6 month chronic follow up Start: 12-10-2025 DIABETES SCREEN DIABETES SCREEN [facility] Start: 10-09-2025 DIABETES SCREEN DIABETES SCREEN [facility] Start: 08-06-2025 End: 08-06-2025 Patient encounter procedure 08/06/2025 10:30 AM EDT Office Visit [facility] [address] [place] [phone] Radha Merino MD [address] [place] [address] AMW [facility] Comment on above: AMW Start: 07-26-2025 Anxiety Screening Anxiety Screening [facility] Start: 07-26-2025 Depression Screening Depression Screening [facility] Start: 07-23-2025 Influenza vaccination Influenza Vaccine (#1) [facility] Start: 02-13-2025 Patient referral [facility] Work Phone: Start: 01-30-2025 End: 01-30-2025 ambulatory 01/30/2025 7:45 AM EDT Results Only Linda [place] [facility] [address] [place] [address] [place] [facility] Start: 01-29-2025 End: 04-30-2025 Comprehensive metabolic 2000 panel - Serum or Plasma COMPREHENSIVE METABOLIC PANEL Lab Routine Hypertension, benign Impaired glucose tolerance Mixed hyperlipidemia Expected: 01/29/2025, Expires: 04/30/2025 [facility] Work Phone: Comment on above: Expected: 01/29/2025, Expires: Start: 01-29-2025 End: 04-30-2025 Hemoglobin A1c in Blood HEMOGLOBIN A1C Lab Routine Impaired glucose tolerance Expected: 01/29/2025, Expires: 04/30/2025 [facility] Comment on above: Expected: 01/29/2025, Expires: Start: 01-29-2025 End: 04-30-2025 Lipid 1996 panel - Serum or Plasma LIPID PANEL BASIC Lab Routine Mixed hyperlipidemia Expected: 01/29/2025, Expires: 04/30/2025 [facility] Comment on above: Expected: 01/29/2025, Expires: Start: 01-29-2025 End: 01-29-2025 Patient encounter procedure 01/29/2025 10:30 AM EDT Office Visit [facility] [address] [place] [phone] Radha Merino MD [address] [place] [address] 6 Month Follow Up [facility] Comment on above: 6 Month Follow Up Start: 11-22-2024 Advance Directive Discussion Advance Directive Discussion [facility] Start: 08-15-2024 End: 08-15-2024 ambulatory Linda Lamar [facility] Start: 07-31-2024 End: 07-31-2024 ambulatory 07/31/2024 8:15 AM EDT Results Only Linda Lamar [facility] [address] [place] [address] Linda Lamar [facility] Start: 07-26-2024 End: 07-26-2024 Patient encounter procedure 07/26/2024 3:10 PM EDT Office Visit [facility] [address] [place] [phone] Radha Merino MD [address] [place] [address] Annual Medicare Wellness Exam/Presurgical Clearance [facility] [place] Comment on above: Annual Medicare Wellness Exam/Presurgica l Clearance Start: 07-26-2024 End: 10-25-2024 CBC W Auto Differential panel - Blood COMPLETE BLOOD COUNT AND DIFFERENTIAL Lab Routine Anemia, unspecified type Expected: 07/26/2024, Expires: 10/25/2024 [facility] Work Phone: Comment on above: Expected: 07/26/2024, Expires: Start: 07-26-2024 End: 10-25-2024 Comprehensive metabolic 2000 panel - Serum or Plasma COMPREHENSIVE METABOLIC PANEL Lab Routine Hypertension, benign Mixed hyperlipidemia Expected: 07/26/2024, Expires: 10/25/2024 [facility] Comment on above: Expected: 07/26/2024, Expires: Start: 07-26-2024 End: 10-25-2024 Hemoglobin A1c in Blood HEMOGLOBIN A1C Lab Routine Impaired glucose tolerance Expected: 07/26/2024, Expires: 10/25/2024 [facility] Comment on above: Expected: 07/26/2024, Expires: Start: 07-26-2024 End: 10-25-2024 Lipid 1996 panel - Serum or Plasma LIPID PANEL BASIC Lab Routine Mixed hyperlipidemia Expected: 07/26/2024, Expires: 10/25/2024 [facility] Comment on above: Expected: 07/26/2024, Expires: Start: 07-26-2024 End: 10-25-2024 PSA/PROSTATE SPECIFIC ANTIGEN SCREENING PSA/PROSTATE SPECIFIC ANTIGEN SCREENING Lab Routine Screening PSA (prostate specific antigen) Expected: 07/26/2024, Expires: 10/25/2024 [facility] Comment on above: Expected: 07/26/2024, Expires: Start: 07-26-2024 End: 07-26-2024 ambulatory 07/26/2024 9:45 AM EDT Results Only Linda Lamar [facility] [address] [place] [address] [facility] Start: 07-23-2024 Covid-19 Vaccine ( season) Covid-19 Vaccine () [facility] Start: 07-23-2024 Covid-19 Vaccine () Covid-19 Vaccine () [facility] Start: 07-23-2024 Influenza vaccination Influenza Vaccine (#1) [facility] Start: 07-16-2024 End: 08-15-2024 25-hydroxyvitamin D3 [Mass/volume] in Serum or Plasma VITAMIN D 25 HYDROXY Lab Routine Hyperparathyroidism (HCC) Expected: 07/16/2024, Expires: 08/15/2024 [facility] Work Phone: Comment on above: Expected: 07/16/2024, Expires: Start: 07-16-2024 End: 08-15-2024 Calcium [Mass/volume] in Serum or Plasma CALCIUM TOTAL BLD Lab Routine Hyperparathyroidism (HCC) Expected: 07/16/2024, Expires: 08/15/2024 [facility] Work Phone: Comment on above: Expected: 07/16/2024, Expires: Start: 07-16-2024 End: 08-15-2024 Parathyrin.intact [Mass/volume] in Serum or Plasma PTH INTACT BLD Lab Routine Hyperparathyroidism (HCC) Expected: 07/16/2024, Expires: 08/15/2024 [facility] Work Phone: Comment on above: Expected: 07/16/2024, Expires: 4 Start: 06-30-2024 End: 06-30-2024 ambulatory 06/30/2024 3:00 PM EDT [facility] [address] [place] [address] Charlene Martinez APRN.IGNITION EXPERT [address] [place] [address] Regarding Test results Urology Comment on above: Regarding Test results Start: 06-23-2024 End: 06-23-2024 ambulatory 06/23/2024 7:45 AM EDT Results Only [place] [facility] [address] [place] [address] Linda [place] [facility] Start: 06-22-2024 End: 09-21-2024 ALDOSTERONE/DIRECT RENIN RATIO ALDOSTERONE/DIRECT RENIN RATIO Lab Routine Adrenal mass (HCC) Expected: 06/22/2024, Expires: 09/21/2024 [facility] Work Phone: Comment on above: Expected: 06/22/2024, Expires: Start: 06-22-2024 End: 09-21-2024 Cortisol [Mass/volume] in Serum or Plasma CORTISOL, SERUM Lab Routine Adrenal mass (HCC) Expected: 06/22/2024, Expires: 09/21/2024 [facility] Comment on above: Expected: 06/22/2024, Expires: Start: 06-22-2024 End: 09-21-2024 CREATININE BLD CREATININE BLD Lab Routine Adrenal mass (HCC) Expected: 06/22/2024, Expires: 09/21/2024 [facility] Comment on above: Expected: 06/22/2024, Expires: Start: 06-22-2024 End: 09-21-2024 METANEPHRINES, FREE PLASMA METANEPHRINES, FREE PLASMA Lab Routine Adrenal mass (HCC) Expected: 06/22/2024, Expires: 09/21/2024 [facility] [facility] Comment on above: Expected: 06/22/2024, Expires: Start: 06-22-2024 End: 06-22-2024 ambulatory 06/22/2024 12:45 PM EDT [facility] [address] [place] [address] Manjeet Massey MD [address] [place] [address] Adrenal mass, 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] Urology Comment on above: Adrenal mass, left ([facility]) [E27.8] Start: 06-20-2024 Shingrix Vaccine (2 of 2) Shingrix Vaccine (2 of 2) [facility] Start: 06-07-2024 ANNUAL PCP TEAM CHRONIC DISEASE VISIT ANNUAL PCP TEAM CHRONIC DISEASE VISIT [facility] Start: 06-07-2024 BP CONTROLLED (<130/80) BP CONTROLLED (<130/80) [facility] Start: 06-07-2024 COVID-19 VACCINE (6 - Moderna series) COVID-19 VACCINE (6 - Moderna series) [facility] Comment on above: Postponed from 01/19/2023 (Declined at t his time) Start: 06-07-2024 Pneumococcal Vaccine: 65+ (2 - PPSV23 or PCV20) Pneumococcal Vaccine: 65+ (2 - PPSV23 or PCV20) [facility] Comment on above: Postponed from 08/30/2020 (Declined at t his time) Start: 06-07-2024 Pneumococcal Vaccine: 65+ (2 of 2 - PPSV23 or PCV20) Pneumococcal Vaccine: 65+ (2 of 2 - PPSV23 or PCV20) [facility] Comment on above: Postponed from 08/30/2020 (Declined at t his time) Start: 06-07-2024 PNEUMOCOCCAL: 65+ (2 - PPSV23 or PCV20) PNEUMOCOCCAL: 65+ (2 - PPSV23 or PCV20) [facility] Comment on above: Postponed from 08/30/2020 (Declined at t his time) Start: 06-07-2024 SHINGRIX VACCINE (1 of 2) SHINGRIX VACCINE (1 of 2) [facility] Comment on above: Postponed from 1992 (Declined at t his time) Start: 06-07-2024 End: 06-07-2024 Patient encounter procedure [facility] Comment on above: Annual Medicare Wellness Exam Annual Medicare Well ness Exam/Presurgical Clearance Start: 05-31-2024 End: 05-31-2024 Patient encounter procedure 05/31/2024 8:30 AM EDT Appointment Radiology [address] [place] [address] Phosphate calculi [N20.9] US KIDNEY/BLADDER Radiology Comment on above: Phosphate calculi [N20.9] US KIDNEY/BLAD FERNANDO Start: 05-05-2024 End: 08-04-2024 Basic metabolic 2000 panel - Serum or Plasma BASIC METABOLIC PANEL Lab Routine Recurrent nephrolithiasis 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 Low urine output Hypocitraturia Aciduria (HCC) Hypernatriuria Expected: 05/05/2024, Expires: 08/04/2024 [facility] Work Phone: Comment on above: Expected: 05/05/2024, Expires: 4 Start: 05-05-2024 End: 05-05-2024 ambulatory 05/05/2024 10:30 AM EDT [facility] [address] [place] [address] Charlene Martinez APRN.IGNITION EXPERT [address] [place] [address] Regarding Test results Urology Comment on above: Regarding Test results Start: 04-10-2024 End: 04-10-2024 Patient encounter procedure 04/10/2024 4:40 PM EDT Office Visit [facility] [address] [place] [phone] Radha Merino MD [address] [place] [address] Preop clearance [facility] Comment on above: Preop clearance Start: 03-15-2024 ANNUAL PCP TEAM CHRONIC DISEASE VISIT ANNUAL PCP TEAM CHRONIC DISEASE VISIT [facility] Start: 03-02-2024 End: 06-01-2024 CBC W Auto Differential panel - Blood COMPLETE BLOOD COUNT AND DIFFERENTIAL Lab Routine Anemia, unspecified type Expected: 03/02/2024, Expires: 06/01/2024 [facility] Work Phone: Comment on above: Expected: 03/02/2024, Expires: Start: 02-12-2024 Patient discharge [facility] Start: 02-12-2024 Administration of blood product [facility] Start: 02-10-2024 Transfusion of red blood cells [facility] Start: 02-10-2024 Administration of blood product [facility] Start: 02-10-2024 Administration of blood product [facility] Start: 02-09-2024 [facility] Start: 02-09-2024 Application of intermittent pneumatic compression device [facility] Start: 02-08-2024 Administration of blood product [facility] Start: 02-08-2024 Referral to gastroenterology service [facility] Start: 02-08-2024 Following clinical pathway protocol [facility] Start: 02-08-2024 Assessment of risk of venous thromboembolism [facility] Start: 02-08-2024 Insertion of catheter into peripheral vein [facility] Start: 02-08-2024 Providing care according to standard [facility] Start: 02-08-2024 Referral to occupational therapist [facility] Start: 02-08-2024 Referral to service [facility] Start: 02-08-2024 [facility] Start: 02-08-2024 Verification routine [facility] Start: 02-08-2024 Admission procedure [facility] Start: 02-08-2024 Hospital admission, emergency, from emergency room, medical nature [facility] Start: 02-08-2024 [facility] Start: 01-24-2024 Ultrasound elastography of liver ABD Limited w/ Elastography [facility] Start: 12-22-2023 ADVANCE DIRECTIVE DISCUSSION ADVANCE DIRECTIVE DISCUSSION [facility] Comment on above: Postponed from 11/22/2022 (Postponed To Appropriate Date) Start: 12-07-2023 ANNUAL PCP TEAM CHRONIC DISEASE VISIT ANNUAL PCP TEAM CHRONIC DISEASE VISIT [facility] Start: 11-22-2023 Advance Directive Discussion Advance Directive Discussion [facility] Start: 11-22-2023 Behavioral Health Screening Behavioral Health Screening [facility] Start: 11-22-2023 Depression Assessment Depression Assessment [facility] Start: 07-23-2023 Covid-19 Vaccine () Covid-19 Vaccine () [facility] Start: 07-23-2023 Influenza vaccination [facility] Start: 06-24-2023 Adult depression screening assessment DEPRESSION SCREENING [facility] Start: 06-07-2023 End: 08-07-2023 CBC W Auto Differential panel - Blood CBC + DIFF Lab Routine Hypertension, essential Expected: 06/07/2023, Expires: 08/07/2023 [facility] Work Phone: Comment on above: Expected: 06/07/2023, Expires: 3 Start: 06-07-2023 End: 08-07-2023 Comprehensive metabolic 2000 panel - Serum or Plasma COMP METABOLIC PANEL Lab Routine Hypertension, essential Screening for deficiency anemia Expected: 06/07/2023, Expires: 08/07/2023 [facility] Work Phone: Comment on above: Expected: 06/07/2023, Expires: 3 Start: 06-07-2023 End: 08-07-2023 Lipid 1996 panel - Serum or Plasma LIPID PANEL BASIC Lab Routine Pure hypercholesterolemia Expected: 06/07/2023, Expires: 08/07/2023 [facility] Work Phone: Comment on above: Expected: 06/07/2023, Expires: 3 Start: 03-25-2023 End: 05-25-2023 Bacteria identified in Urine by Culture URINE CULTURE Microbiology Routine History of UTI Expected: 03/25/2023 (Approximate), Expires: 05/25/2023 [facility] Work Phone: Comment on above: Expected: 03/25/2023 (Approximate), Expi res: 05/25/2023 Start: 12-07-2022 End: 02-06-2023 Comprehensive metabolic 2000 panel - Serum or Plasma COMP METABOLIC PANEL Lab Routine Pure hypercholesterolemia Hypertension, essential Expected: 12/07/2022, Expires: 02/06/2023 [facility] Work Phone: Comment on above: Expected: 12/07/2022, Expires: 3 Start: 12-07-2022 End: 02-06-2023 Hemoglobin A1c in Blood HGB A1C Lab Routine Hyperglycemia Expected: 12/07/2022, Expires: 02/06/2023 [facility] Work Phone: Comment on above: Expected: 12/07/2022, Expires: 3 Start: 12-07-2022 End: 02-06-2023 Lipid 1996 panel - Serum or Plasma LIPID PANEL BASIC Lab Routine Pure hypercholesterolemia Expected: 12/07/2022, Expires: 02/06/2023 [facility] Work Phone: Comment on above: Expected: 12/07/2022, Expires: 3 Start: 11-22-2022 ADVANCE DIRECTIVE DISCUSSION ADVANCE DIRECTIVE DISCUSSION [facility] Start: 11-22-2022 DEPRESSION ASSESSMENT DEPRESSION ASSESSMENT [facility] Start: 07-23-2022 Influenza vaccination INFLUENZA (#1) [facility] Start: 06-04-2022 COVID-19 VACCINE (5 - Booster for Moderna series) COVID-19 VACCINE (5 - Booster for Moderna series) [facility] Start: 11-22-2021 ADVANCE DIRECTIVE DISCUSSION ADVANCE DIRECTIVE DISCUSSION [facility] Start: 11-22-2021 DEPRESSION ASSESSMENT DEPRESSION ASSESSMENT [facility] Start: 07-20-2021 COVID-19 VACCINE (3 - Booster for Moderna series) COVID-19 VACCINE (3 - Booster for Moderna series) [facility] Start: 08-30-2020 Pneumococcal Vaccine: 50+ (2 of 2 - PCV20 or PCV21) Pneumococcal Vaccine: 50+ (2 of 2 - PCV20 or PCV21) [facility] Start: 08-30-2020 Pneumococcal Vaccine: 50+ (2 of 2 - PPSV23) Pneumococcal Vaccine: 50+ (2 of 2 - PPSV23) [facility] Start: 08-30-2020 Pneumococcal Vaccine: 65+ (2 of 2 - PPSV23 or PCV20) Pneumococcal Vaccine: 65+ (2 of 2 - PPSV23 or PCV20) [facility] Start: 06-13-2018 End: 06-13-2018 Appointment Appointment [facility] Work Phone: Start: 2017 RSV Vaccine (1 - 1-dose 75+ series) RSV Vaccine (1 - 1-dose 75+ series) [facility] Start: 06-08-2017 End: 06-08-2017 Appointment Appointment [facility] Work Phone: Start: 06-08-2017 End: 06-08-2017 LUIZ DEE [facility] Work Phone: Start: 06-08-2017 End: 06-08-2017 Follow Up Appt 1 year Follow Up Appt 1 year [facility] Work Phone: Start: 05-26-2016 End: 05-26-2016 Follow Up BP Check Follow Up BP Check [facility] Work Phone: Start: 05-12-2016 End: 06-02-2017 DJN ANAN [facility] Work Phone: Start: 05-12-2016 End: 06-02-2017 Follow Up Appt 1 year Follow Up Appt 1 year [facility] Work Phone: Start: 03-04-2015 End: 03-04-2015 ANAN ANAN [facility] Work Phone: Start: 03-04-2015 End: 03-04-2015 Follow Up Appt 1 year Follow Up Appt 1 year [facility] Work Phone: Start: 08-21-2013 End: 08-21-2013 LUIZ DEE [facility] Work Phone: Start: 08-21-2013 End: 08-21-2013 Follow Up Appt 1 year Follow Up Appt 1 year [facility] Work Phone: Start: 08-21-2013 End: 08-21-2013 Stress Echocardiogram (treadmill) Stress Echocardiogram (treadmill) [facility] Work Phone: Start: 08-15-2012 End: 07-12-2013 *Hepatic Function Panel *Hepatic Function Panel [facility] Work Phone: Start: 08-15-2012 End: 07-12-2013 Electrocardiogram, complete EKG (In office) [facility] Work Phone: Start: 08-15-2012 End: 08-15-2012 Follow Up Appt 1 year Follow Up Appt 1 year [facility] Work Phone: Start: 08-15-2012 End: 07-12-2013 Lipid panel [AGGREGATE] *Lipid Profile [facility] Work Phone: Start: 2007 PNEUMOCOCCAL: 65+ (1 - PCV) PNEUMOCOCCAL: 65+ (1 - PCV) [facility] Start: 2002 RSV Vaccine (1 - 1-dose 60+ series) RSV Vaccine (1 - 1-dose 60+ series) [facility] Start: 1992 SHINGRIX VACCINE (1 of 2) SHINGRIX VACCINE (1 of 2) [facility] Start: 1987 DIABETES SCREEN DIABETES SCREEN [facility] Start: 1961 Urine microalbumin profile DTAP,TDAP,TD (1 - Tdap) [facility] Start: 1960 Anxiety Screening Anxiety Screening [facility] Start: 1960 BP CONTROLLED (<130/80) BP CONTROLLED (<130/80) [facility] Start: 1960 Depression Screening Depression Screening [facility] Start: 1954 Adult depression screening assessment DEPRESSION SCREENING [facility] Bacteria identified in Urine by Culture URINE CULTURE Microbiology Routine History of nephrolithiasis 03/16/2023 10:29 AM EDT [facility] Work Phone: CBC W Auto Different ial panel - Blood [facility] Comprehensive metabo lic 2000 panel - Serum or Plasma [facility] End: 04-14-2024 Ct abdomen & pelvis w/o contrast material CT FLANK WO IVCON Radiology Routine History of nephrolithiasis 1 Occurrences starting 03/16/2023 until 04/14/2024 [facility] Work Phone: Comment on above: 1 Occurrences starting 03/16/2023 until 04/14/2024 CT Abdomen and Pelvi s W contrast IV [facility] End: 07-22-2025 CT Adrenal gland WO and W contrast IV CT ADRENAL WO/W IVCON Radiology Routine Disorder of adrenal gland (HCC) 1 Occurrences starting 06/22/2024 until 07/22/2025 [facility] Comment on above: 1 Occurrences starting 06/22/2024 until 07/22/2025 Gastrointestinal pathogens panel - Stool by ALISHA with probe detection [facility] Hemoglobin A1c/Hemoglobin.total in Blood [facility] Lipid 1996 panel - S yanira or Plasma [facility] Liver stiffness by US.transient elastography [facility] Patient Education [facility] Work Phone: Patient referral [facility] Work Phone: Procedure [facility] Prothrombin time [facility] End: 05-27-2024 Radiologic exam abdomen 1 view XR ABDOMEN 1V SPECIFY Radiology Routine Horseshoe kidney Left nephrolithiasis 1 Occurrences starting 04/28/2023 until 05/27/2024 [facility] Work Phone: Comment on above: 1 Occurrences starting 04/28/2023 until 05/27/2024 Radionuclide gastric emptying study [facility] Thyroid stimulating hormone measurement [facility] Urinalysis complete panel - Urine URINALYSIS, WITH MICROSCOPIC Lab Routine History of nephrolithiasis 03/16/2023 10:29 AM EDT [facility] Work Phone: XR Cervical spine 2 or 3 Views [facility] [facility] Immunizations Immunization Date Immunization Notes Care Provider Fa [facility] 08-29-2024 influenza virus vaccine, unspecified formulation Radha Merino MD Work Phone: [facility] 04-25-2024 zoster vaccine recombinant Manjeet Massey MD Work Phone: [facility] 09-16-2023 influenza, injectabl e, quadrivalent, preservative free [facility] 09-16-2023 influenza virus vaccine, unspecified formulation Manjeet Massey MD Work Phone: [facility] 07-17-2023 tetanus toxoid, redu daisy diphtheria toxoid, and acellular pertussis vaccine, adsorbed Radha Merino MD Work Phone: [facility] 09-08-2022 influenza, injectabl e, quadrivalent, preservative free [facility] 09-08-2022 influenza, seasonal, injectable Dr. Radha Merino Work Phone: [facility] 09-08-2022 influenza virus vaccine, unspecified formulation Ct (I-Stat) Work Phone: [facility] 02-17-2021 Covid (Moderna) [facility] 01-20-2021 Covid (Moderna) [facility] 09-09-2020 Seasonal, quadrivale nt, recombinant, injectable influenza vaccine, preservative free Radha Merino MD Work Phone: [facility] 08-30-2019 influenza, high dose seasonal, preservative-free Radha Merino MD Work Phone: [facility] 08-30-2019 pneumococcal conjuga te vaccine, 13 valent Radha Merino MD Work Phone: [facility] 08-17-2018 AS03 adjuvant Radha Merino MD Work Phone: [facility] 12-30-2009 novel [id number], preservative-free, injectable Radha Merino MD Work Phone: [facility] Payers Date Payer Category Payer Self-pay [id number] 2014 Private Health Insurance [facility] AARP SUPPLEMENT [id number] 2014-Present [phone] [address] [place] [address] Indemnity [id number] 2014 Private Health Insurance [id number] 2014 Unknown [id number] 2007 Medicare MEDICARE MEDICAR E A AND B [id number] 2007-Present [phone] [address] [address] [place] [address] Medicare [id number] 2007 Medicare [id number] 2007 Medicare [id number] Unknown [id number] Unknown [id number] Unknown [id number] Unknown [id number] Unknown [id number] Unknown [id number] Unknown [id number] Unknown [id number] Unknown [id number] Social History Date Type Detail Facility Start: 09-29-2021 End: 02-08-2024 Tobacco smoking status NHIS Unknown if ever smoked [facility] Start: 1940 Sex Assigned At Male [facility] Start: 06-24-2022 End: 12-07-2022 Tobacco smoking status NHIS Never smoked tobacco [facility] Start: 05-18-2016 End: 08-06-2025 Alcohol intake Current drinker of alcohol (finding) [facility] Start: 1940 Sex Assigned At Not on file [facility] Start: 05-05-2022 End: 06-24-2022 Exposure to SARS-CoV-2 (event) Not sure [facility] Start: 06-24-2022 History SDOH Alcohol Frequency 2 [facility] Start: 06-24-2022 History SDOH Alcohol Std Drinks 1 [facility] Start: 06-24-2022 History SDOH Social Connections Phone 5 [facility] Start: 06-24-2022 History SDOH Social Connections Living 3 [facility] Start: 06-24-2022 End: 12-07-2022 Tobacco use and exposure Smokeless tobacco non-user [facility] Start: 12-07-2022 Alcohol Comment occassionally [facility] Start: 04-05-2023 End: 06-07-2023 History of Social function [facility] Start: 04-05-2023 End: 06-07-2023 Social connection and isolation panel [facility] Do you belong to any clubs or organizations such as anglican groups, unions, fraternal or athletic groups, or school groups? No [facility] Are you now , , , , never or living with a partner? [facility] How often to you hav e a drink containing alcohol? 2-3 time sa week [facility] How many standard dr inks containing alcohol do you have on a typical day? 1 or 2 [facility] How often do you hav e 6 or more drinks on 1 occasion? Never [facility] How hard is it for y ou to pay for the very basics like food, housing, medical care, and heating Somewhat hard [facility] Start: 10-23-2012 Adult Depression Screening Assessment 0 [facility] Work Phone: Do you feel stress - tense, restless, nervous, or anxious, or unable to sleep at night because your mind is troubled all the time - these days [OSQ] Not at all [facility] (I/We) worried whebienvenido er (my/our) food would run out before (I/we) got money to buy more. Never true [facility] Start: 06-07-2023 Education 17 [facility] Start: 06-07-2023 Sexual orientation Heterosexual (finding) [facility] How often to you hav e a drink containing alcohol? Monthly or less [facility] How often to you hav e a drink containing alcohol? 2-4 times a month [facility] Start: 02-15-2025 Sex Male (finding) [facility] Medical Equipment Procedure Code Equipment Code Equipment Origin al Text Equipment Identifier Dates Laminectomy, spine, lumbar, with spinal cord stimulator insertion [id number] FDA Start: 06-15-2024 Laminectomy, spine, lumbar, with spinal cord stimulator insertion GRAFT,JENNIFER ELITE MED FDA Start: 06-15-2024 Laminectomy, spine, lumbar, with spinal cord stimulator insertion SURGIFLO HEMOSTATIC MATRIX FDA Start: 06-15-2024 Laminectomy, spine, lumbar, with spinal cord stimulator insertion SURGIFLO HEMOSTATIC MATRIX FDA Start: 06-15-2024 Laminectomy, spine, lumbar, with spinal cord stimulator insertion bi-wing anchor FDA Start: 06-15-2024 Laminectomy, spine, lumbar, with spinal cord stimulator insertion generator FDA Start: 06-15-2024 Laminectomy, spine, lumbar, with spinal cord stimulator insertion lead FDA Start: 06-15-2024 Laminectomy, spine, lumbar, with spinal cord stimulator insertion [id number] FDA Start: 06-15-2024 Laminectomy, spine, lumbar, with spinal cord stimulator insertion GRAFT,JENNIFER ELITE MED FDA Start: 06-15-2024 Laminectomy, spine, lumbar, with spinal cord stimulator insertion SURGIFLO HEMOSTATIC MATRIX FDA Start: 06-15-2024 Laminectomy, spine, lumbar, with spinal cord stimulator insertion SURGIFLO HEMOSTATIC MATRIX FDA Start: 06-15-2024 Laminectomy, spine, lumbar, with spinal cord stimulator insertion bi-wing anchor FDA Start: 06-15-2024 Laminectomy, spine, lumbar, with spinal cord stimulator insertion generator FDA Start: 06-15-2024 Laminectomy, spine, lumbar, with spinal cord stimulator insertion lead FDA Start: 06-15-2024 Colonoscopy CLIP,RESO 360 UL TRA 235_17 FDA Start: 02-10-2024 Colonoscopy CLIP,RESO 360 UL TRA 235_17 FDA Start: 02-10-2024 Colonoscopy MARKER,ENDO SPOT TRISTAN INK FDA Start: 02-10-2024 Colonoscopy CLIP,RESO 360 UL TRA 235_17 FDA Start: 02-10-2024 Colonoscopy CLIP,RESO 360 UL TRA 235_17 FDA Start: 02-10-2024 Colonoscopy MARKER,ENDO SPOT TRISTAN INK FDA Start: 02-10-2024 Colonoscopy CLIP,RESO 360 UL TRA 235_17 FDA Start: 02-10-2024 Colonoscopy CLIP,RESO 360 UL TRA 235_17 FDA Start: 02-10-2024 Colonoscopy MARKER,ENDO SPOT TRISTAN INK FDA Start: 02-10-2024 Colonoscopy CLIP,RESO 360 UL TRA 235_17 FDA Start: 02-10-2024 Colonoscopy CLIP,RESO 360 UL TRA 235_17 FDA Start: 02-10-2024 Colonoscopy MARKER,ENDO SPOT TRISTAN INK FDA Start: 02-10-2024 Bard Inlay Optim a Stent Kit [id number] Start: 04-21-2023 Stent Inlay Opti ma 6fr 28cm [id number] Start: 04-21-2023 Goals Date Patient Goal Desired Activity /State Functional Status Date Assessment Result Facility 08-06-2025 Total score [AUDIT-C] 3 08/06/20 25 10:49 AM Lorri Tomlinson LPN [facility] 02-12-2024 Functional status [facility] Work Phone: 12-25-2023 Are you deaf, or do you have serious difficulty hearing No 12/25/2023 8:20 AM Tiki Hawk, RENITA No [facility] 12-25-2023 Are you blind, or do you have serious difficulty seeing, even when wearing glasses No 12/25/2023 8:20 AM T[place], RENITA No [facility] 12-25-2023 Do you have serious difficulty walking or climbing stairs No 12/25/2023 8:20 AM Tiki Hawk, RENITA No [facility] 12-25-2023 Do you have difficul ty dressing or bathing No 12/25/2023 8:20 AM Tiki Hawk, RENITA No [facility] 12-25-2023 Because of a physica l, mental, or emotional condition, do you have difficulty doing errands alone such as visiting a physician's office or shopping No 12/25/2023 8:20 AM [place]iki [place], RNEITA No [facility] Mental Status Date Assessment Result Facility 02-12-2024 Cognitive function Voice/Name [facility] Work Phone: 02-08-2024 Cognitive function Level Of Cons ciousness Awake;Alert;Appropriate;Fol lows Commands [facility] Work Phone: 12-25-2023 Because of a physica l, mental, or emotional condition, do you have serious difficulty concentrating, remembering, or making decisions No 12/25/2023 8:20 AM Tiki Hawk RN No [facility] 05-04-2022 Cognitive function Level Of Cons ciousness Awake;Alert;Appropriate;Fol lows Commands [facility] Work Phone: Clinical Notes 06-24-2022 to 08-06-2025 Patient InstructionsRadha Mreino MD - 08/06/2025 11:17 AM Lorri Snider LPN - 08/06/2025 10:39 AM EDTTelephone Encounter - Ana M Fermin MA - 01/29/2025 1:58 PM EDT Note Date & Type Note Facility 08-06-2025 Instructions Radha Merino MD - 08/06/2025 11:20 AM EDT Screening schedule The following prevention plan is recommended: RSV Vaccine(1 - 1-dose 75+ series) Never done Pneumococcal Vaccine: 50+(2 of 2 - PCV20 or PCV21) due on 08/30/2020 Advance Directive Discussion due on 11/22/2024 Medicare Annual Wellness Visit due on 07/26/2025 Influenza Vaccine(1) due on 07/23/2025 Depression Screening due on 07/26/2025 Anxiety Screening due on 07/26/2025 WHAT YOU CAN DO TO PREVENT FALLS Many falls can be prevented. By making some changes, you can lower your chances of falling. Four things YOU can do to prevent falls for you* and your caregiver 1. Begin a regular exercise program Exercise is one of the most important ways to lower your chances of falling. It makes you stronger and helps you feel better. Exercises that improve balance and coordination (like Errol Chi) are the most helpful. Lack of exercise leads to weakness and increases your chances of falling. Ask your doctor or health care provider about the best type of exercise program for you. 2. Have your health care provider review your medicines Have your doctor or pharmacist review all the medicines you take, even [id number]-zrqesoq medicines. As you get older, the way medicines work in your body can change. Some medicines, or combinations of medicines, can make you sleepy or dizzy and can cause you to fall. 3. Have your vision checked Have your eyes checked by an eye doctor at least once a year. You may be wearing the wrong glasses or have a condition like glaucoma or cataracts that limits your vision. Poor vision can increase your chances of falling. 4. Make your home safer About half of all falls happen at home. To make your home safer: Remove things you can trip over (like papers, books, clothes, and shoes) from stairs and places where you walk. Remove small throw rugs or use double-sided tape to keep the rugs from slipping. Keep items you use often in cabinets you can reach easily without using a step stool. Have grab bars put in next to your toilet and in the tub or shower. Use non-slip mats in the bathtub and on shower floors. Improve the lighting in your home. As you get older, you need brighter lights to see well. Hang light-weight curtains or shades to reduce glare. Have handrails and lights put in on all staircases. Wear shoes both inside and outside the house. Avoid going barefoot or wearing slippers. For more information, contact: Centers for Disease Control and Prevention www.cdc.gov/injury * This information may not apply if you have certain medical conditions. documented in this encounter [facility] 08-06-2025 Note HNO ID: [id number] Author: RADHA MERINO MD Service: ? Author Type: Physician Type: Progress Notes Filed: 08/07/2025 13:53 Note Text: Subjective Kerwin Alvarado is a 85 year old male. Presents today for his Medicare wellness visit. Additionally follows up for multiple medical problems. See list. His chronic medical problems have been stable. His blood pressure has been under good control on his current regimen. Cholesterol is well-controlled previously on statin. 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 Patient has a history of fatty liver for which she is being treated with Rezdiffra. Review of Systems Constitutional: Negative. HENT: Negative. Eyes: Negative. Respiratory: Negative. Cardiovascular: Negative. Gastrointestinal: Negative. Endocrine: Negative. Genitourinary: Negative. Musculoskeletal: Negative. Skin: Negative. Allergic/Immunologic: Negative. Neurological: Negative. Hematological: Negative. Psychiatric/Behavioral: Negative. 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 sildenafil (REVATIO) 20 mg tablet Take 1 tablet by mouth as needed. 2 tablets 1 hour before sexual activity cyanocobalamin (VITAMIN B-12) 100 mcg tab Take 100 mcg by mouth once daily. vit A/vit C/vit E/zinc/copper (ICAPS AREDS ORAL) Take by mouth. Preservation MULTIVITAMIN TAB Take one(1) tablet daily. Valsartan-hydroCHLOROthiazide 320-25 mg per tablet Take 1 tablet by mouth once daily. omeprazole (PRILOSEC) 20 mg capsule Take 1 capsule by mouth once daily. fenofibrate nanocrystallized (TRICOR) 48 mg tablet Take 1 tablet by mouth once daily. DULoxetine DR (CYMBALTA) 30 mg capsule Take 1 capsule by mouth once daily. allopurinol (ZYLOPRIM) 100 mg tablet Take 2 tablets by mouth once daily. Allergies, past surgical history, family history and past medical history were reviewed per this encounter. Medications were reviewed and verified. 01/22/2025 08/01/2025 INTAKE PAIN ASSESSMENT Are you having pain associated with your visit today? No No If pain assessment is 0, no action needed. If pain assessment is positive, please see assessment and plain. Objective BP 128/78 (BP Site: Left Arm, BP Position: Sitting, BP Cuff Size: Regular Adult) Pulse 67 Temp 36.7 ?C (98 ?F) (Temporal) Resp 16 Ht 175.3 cm (5' 9) Wt 101.2 kg (223 lb 3.2 oz) SpO2 96% BMI 32.96 kg/m? Physical Exam Vitals reviewed. Constitutional: Appearance: [...] time. Mental status is at baseline. Psychiatric: (more content not included)... [facility] 08-06-2025 History of Presen t illness Narrative Images from the original note were not included. Subjective Kerwin Alvarado is a 85 year old male. Presents today for his Medicare wellness visit. Additionally follows up for multiple medical problems. See list. His chronic medical problems have been stable. His blood pressure has been under good control on his current regimen. Cholesterol is well-controlled previously on statin. 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 Patient has a history of fatty liver for which she is being treated with Rezdiffra. Review of Systems Constitutional: Negative. HENT: Negative. Eyes: Negative. Respiratory: Negative. Cardiovascular: Negative. Gastrointestinal: Negative. Endocrine: Negative. Genitourinary: Negative. Musculoskeletal: Negative. Skin: Negative. Allergic/Immunologic: Negative. Neurological: Negative. Hematological: Negative. Psychiatric/Behavioral: Negative. 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 sildenafil (REVATIO) 20 mg tablet Take 1 tablet by mouth as needed. 2 tablets 1 hour before sexual activity cyanocobalamin (VITAMIN B-12) 100 mcg tab Take 100 mcg by mouth once daily. vit A/vit C/vit E/zinc/copper (ICAPS AREDS ORAL) Take by mouth. Preservation MULTIVITAMIN TAB Take one(1) tablet daily. Valsartan-hydroCHLOROthiazide 320-25 mg per tablet Take 1 tablet by mouth once daily. omeprazole (PRILOSEC) 20 mg capsule Take 1 capsule by mouth once daily. fenofibrate nanocrystallized (TRICOR) 48 mg tablet Take 1 tablet by mouth once daily. DULoxetine DR (CYMBALTA) 30 mg capsule Take 1 capsule by mouth once daily. allopurinol (ZYLOPRIM) 100 mg tablet Take 2 tablets by mouth once daily. Allergies, past surgical history, family history and past medical history were reviewed per this encounter. Medications were reviewed and verified. 01/22/2025 08/01/2025 INTAKE PAIN ASSESSMENT Are you having pain associated with your visit today? No No If pain assessment is 0, no action needed. If pain assessment is positive, please see assessment and plain. Objective BP 128/78 (BP Site: Left Arm, BP Position: Sitting, BP Cuff Size: Regular Adult) Pulse 67 Temp 36.7 C (98 F) (Temporal) Resp 16 Ht 175.3 cm (5' 9) Wt 101.2 kg (223 lb 3.2 oz) SpO2 96% BMI 32.96 kg/m Physical Exam Vitals reviewed. Constitutional: Appearance: [...] and Affect: Mood normal. Behavior: Behavior normal. Procedures Assessment and Plan Encounter Diagnosis ICD-10-CM 1. Wellness examination Z00.00 2. Screening for depression Z13.31 DEPRESSION SCREENING 3. Encounter for screening examination for other mental health and behavioral disorders Z13.39 ANXIETY SCREENING 4. Hypertension, benign I10 COMPREHENSIVE METABOLIC PANEL Blood pressure under good control on current medication. Continue to monitor blood pressure regularly. Reduce salt. Reduce weight 5. Mixed hyperlipidemia E78.2 COMPREHENSIVE METABOLIC PANEL LIPID PANEL, FASTING Lipids due for recheck. Continue fenofibrate 6. Impaired glucose tolerance R73.02 HEMOGLOBIN A1C A1C has been stable. Recheck A1c 7. Screening for deficiency anemia Z13.0 COMPLETE BLOOD COUNT AND DIFFERENTIAL 8. Screening PSA (prostate specific antigen) Z12.5 PSA/PROSTATE SPECIFIC ANTIGEN SCREENING All open preventative health maintenance topics discussed with patient in detail. This includes risks and benefits regarding vaccines, cancer screening, healthy life style, and diet. Continue present medications. Check labs as above. Monitor blood pressure regularly. Exercise as tolerated. Maintain good diet. Follow-up in 6 months. Medicare Health Risk Assessment General Health Very good Exercise: Minutes/Day 10 min Exercise: Days/Week 2 days Alcohol: Daily Use 2-3 times a week Alcohol: Drinks/Day 1 or 2 Alcohol: 6 or more drinks Never Feel off balance Yes (sometimes when he first stands up) Concerns: Teeth/Dentures No Concerns: Sexual function No Troubled by feelings None of the above Frequency: Eating healthy diet More than half the days ADLs requiring help None of the above Safety precautions in home/vehicle Yes Smoke, vape, chews tobacco No Difficulty hearing No Difficulty seeing No Current Providers Specialists: I have reviewed specialist-related care of the patient in the medical record. Medical/Family history review Reviewed and updated problem list, medical/surgical/family/social history, medications, and allergies. Opioid use review Opioid Medications (last 90 days) No data to display Anxiety/Depression screening PHQ-2 Score: 0 (Lower risk for depression) YONG-2 Score: 0 (Lower risk for anxiety) Recommendation: no further intervention at this time Cognitive screening Mini Cog Score: 5 Cognitive screening reviewed and No further action needed (score 3-5). Functional Observation Was the patient's Timed Up & Go test unsteady or >= 12 seconds? No Advance Care Planning Surrogate decision maker documented and/or advance directives scanned in chart Measurements BP 128/78 (BP Site: Left Arm, BP Position: Sitting, BP Cuff Size: Regular Adult) Pulse 67 Temp 36.7 C (98 F) (Temporal) Resp 16 Ht 175.3 cm (5' 9) Wt 101.2 kg (223 lb 3.2 oz) SpO2 96% BMI 32.96 kg/m Vision Screening: Follows with optometry/ophthalmology Assessment/Plan Medicare annual wellness visit, subsequent (Z00.00) - Counseled on healthy diet and regular exercise - Fall avoidance information provided [1] Social History Tobacco Use Smoking status: Never Smokeless tobacco: Never Vaping Use Vaping status: Never Used Substance Use Topics Alcohol use: Yes Alcohol/week: 2.0 - 6.0 standard drinks of alcohol Types: 2 - 6 Standard drinks or equivalent per week Comment: occassionally Drug use: No Kerwin is here today for his annual Medicare wellness exam RSV Vaccine(1 - 1-dose 75+ series) Never done Pneumococcal Vaccine: 50+(2 of 2 - PCV20 or PCV21) due on 08/30/2020 Advance Directive Discussion due on 11/22/2024 patient states he has this done and is unsure if [facility] has a copy of it Medicare Annual Wellness Visit due on 07/26/2025 Influenza Vaccine(1) due on 07/23/2025 Depression Screening due on 07/26/2025 Anxiety Screening due on 07/26/2025 Patient will discuss vaccines with Dr Angelique Suresh does need 5 refills Lorri Campbell LPN August 06, 2025 10:59 AM documented in this encounter [facility] 08-06-2025 Note HNO ID: [id number] Author: LORRI CAMPBELL LPN Service: ? Author Type: Licensed Nurse Type: Progress Notes Filed: 08/07/2025 13:53 Note Text: Keriwn is here today for his annual Medicare wellness exam RSV Vaccine(1 - 1-dose 75+ series) Never done Pneumococcal Vaccine: 50+(2 of 2 - PCV20 or PCV21) due on 08/30/2020 Advance Directive Discussion due on 11/22/2024 patient states he has this done and is unsure if [facility] has a copy of it Medicare Annual Wellness Visit due on 07/26/2025 Influenza Vaccine(1) due on 07/23/2025 Depression Screening due on 07/26/2025 Anxiety Screening due on 07/26/2025 Patient will discuss vaccines with Dr Merino Kerwin does need 5 refills Lorri Campbell LPN August 06, 2025 10:59 AM [facility] 01-29-2025 Telephone encount er Note Items addressed in this encounter: Prior Authorization Pays out of pocket for Sildenafil Able to close encounter. Ana M Fermin MA January 29, 2025 1:58 PM 1:58 PM [facility] 01-29-2025 Miscellaneous Notes Formattin g of this note might be different from the original. Items addressed in this encounter: Prior Authorization Pays out of pocket for Sildenafil Able to close encounter. Ana M Fermin MA January 29, 2025 1:58 PM 1:58 PM documented in this encounter [facility] 01-29-2025 Note HNO ID: [id number] Author: RADHA MERINO MD Service: ? Author Type: Physician Type: Progress Notes Filed: 01/29/2025 11:06 Note Text: Marquita Alvarado is a 84 year old male.Patient presents today for follow-up for multiple medical problems. See list. His chronic medical problems been stable. He is compliant with his medications. He has been having mild swelling in his right ankle. He does have compression stockings. He is not wearing them today. He has significant low back pain. He is considering spinal fusion surgery. Blood pressure is under excellent control on current medication. Cholesterol is improved with the simvastatin. 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 Review of Systems Constitutional: Negative. HENT: Negative. Eyes: Negative. Respiratory: Negative. Cardiovascular: Negative. Gastrointestinal: Negative. Endocrine: Negative. Genitourinary: Negative. Musculoskeletal: Negative. Skin: Negative. Allergic/Immunologic: Negative. Neurological: Negative. Hematological: Negative. Psychiatric/Behavioral: Negative. PAST SURGICAL HISTORY Procedure Laterality Date COLONOSCOPY FLX DX W/COLLJ SPEC WHEN PFRMD 05/14/2005 Colonoscopy COLONOSCOPY FLX DX W/COLLJ SPEC WHEN PFRMD 11/11/2015 Colonoscopy EGD TRANSORAL BIOPSY SINGLE/MULTIPLE 11/24/2006 ORTHOPEDIC SURGERY HX OSTEOGENESIS STIM, SPINAL APPL PROSTATE NEEDLE BIOPSY ANY APPROACH Transrectal bx, prostate TONSILLECTOMY PRIMARY/SECONDARY Tonsillectomy PAST MEDICAL HISTORY Diagnosis Date Acute ethmoidal [...] of both hands 12/07/2022 Polyneuropathy 10/16/2022 Snoring FAMILY HISTORY Problem Relation Age of Onset Heart disease Mother Social History Tobacco Use Smoking status: Never Smokeless tobacco: Never Vaping Use Vaping status: Never Used Substance Use Topics Alcohol use: Yes Comment: occassionally Drug use: No ALLERGIES No Known Allergies MEDICATIONS: resmetirom (REZDIFFRA) 100 mg tablet Take 100 mg by mouth once daily. Valsartan-hydroCHLOROthiazide 320-25 mg per tablet TAKE 1 TABLET BY MOUTH ONCE DAILY simvastatin (ZOCOR) 40 mg tablet TAKE 1 TABLET BY MOUTH ONCE DAILY sodium bicarbonate 650 mg tablet Take 1 tablet by mouth three times a day. omeprazole (PRILOSEC) 20 mg capsule TAKE 1 CAPSULE BY MOUTH ONCE DAILY allopurinol (ZYLOPRIM) 100 mg tablet TAKE 2 TABLETS BY MOUTH ONCE DAILY omulpgk-gnwastsmt-ouyskfo D3 500 mg-5 mcg (200 unit) per tablet Take 1 tablet by mouth three times a day. cyanocobalamin (VITAMIN B-12) 100 mcg tab Take 100 mcg by mouth once daily. vit A/vit C/vit E/zinc/copper (ICAPS AREDS ORAL) Take by mouth. Preservation MULTIVITAMIN TAB Take one(1) tablet daily. sildenafil (REVATIO) 20 mg tablet Take 1 tablet by mouth as needed. 2 tablets 1 hour before sexual activity Allergies, past surgical history, family history and past medical history were reviewed per this encounter. Medications were reviewed and verified. 07/22/2024 01/22/2025 INTAKE PAIN ASSESSMENT Are you having pain associated with your visit today? No No If pain assessment is 0, no action needed. If pain assessment is positive, please see assessment and plain. Objective BP 124/68 (BP Site: Left Arm, BP Position: Sitting, BP Cuff Size: Regular Adult) Pulse 80 Temp 36.3 ?C (97.3 ?F) (Temporal) Resp 18 Ht 175.3 cm (5' 9) Wt 103.4 kg (228 lb) SpO2 95% BMI 33.67 kg/m? Physical Exam Vitals reviewed. Constitutional: Appearance: [...] soft. Musculoskeletal: General: Normal range of motion. Ce (more content not included)... [facility] 01-29-2025 History of Presen t illness Narrative Subjective Kerwin Alvarado is a 84 year old male.Patient presents today for follow-up for multiple medical problems. See list. His chronic medical problems been stable. He is compliant with his medications. He has been having mild swelling in his right ankle. He does have compression stockings. He is not wearing them today. He has significant low back pain. He is considering spinal fusion surgery. Blood pressure is under excellent control on current medication. Cholesterol is improved with the simvastatin. 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 Review of Systems Constitutional: Negative. HENT: Negative. Eyes: Negative. Respiratory: Negative. Cardiovascular: Negative. Gastrointestinal: Negative. Endocrine: Negative. Genitourinary: Negative. Musculoskeletal: Negative. Skin: Negative. Allergic/Immunologic: Negative. Neurological: Negative. Hematological: Negative. Psychiatric/Behavioral: Negative. PAST SURGICAL HISTORY Procedure Laterality Date COLONOSCOPY FLX DX W/COLLJ SPEC WHEN PFRMD 05/14/2005 Colonoscopy COLONOSCOPY FLX DX W/COLLJ SPEC WHEN PFRMD 11/11/2015 Colonoscopy EGD TRANSORAL BIOPSY SINGLE/MULTIPLE 11/24/2006 ORTHOPEDIC SURGERY HX OSTEOGENESIS STIM, SPINAL APPL PROSTATE NEEDLE BIOPSY ANY APPROACH Transrectal bx, prostate TONSILLECTOMY PRIMARY/SECONDARY <AGE 12 Tonsillectomy PAST MEDICAL HISTORY Diagnosis Date Acute ethmoidal [...] of both hands 12/07/2022 Polyneuropathy 10/16/2022 Snoring FAMILY HISTORY Problem Relation Age of Onset Heart disease Mother Social History Tobacco Use Smoking status: Never Smokeless tobacco: Never Vaping Use Vaping status: Never Used Substance Use Topics Alcohol use: Yes Comment: occassionally Drug use: No ALLERGIES No Known Allergies MEDICATIONS: resmetirom (REZDIFFRA) 100 mg tablet Take 100 mg by mouth once daily. Valsartan-hydroCHLOROthiazide 320-25 mg per tablet TAKE 1 TABLET BY MOUTH ONCE DAILY simvastatin (ZOCOR) 40 mg tablet TAKE 1 TABLET BY MOUTH ONCE DAILY sodium bicarbonate 650 mg tablet Take 1 tablet by mouth three times a day. omeprazole (PRILOSEC) 20 mg capsule TAKE 1 CAPSULE BY MOUTH ONCE DAILY allopurinol (ZYLOPRIM) 100 mg tablet TAKE 2 TABLETS BY MOUTH ONCE DAILY otxzsyr-yhwbuxwem-qqmbwbm D3 500 mg-5 mcg (200 unit) per tablet Take 1 tablet by mouth three times a day. cyanocobalamin (VITAMIN B-12) 100 mcg tab Take 100 mcg by mouth once daily. vit A/vit C/vit E/zinc/copper (ICAPS AREDS ORAL) Take by mouth. Preservation MULTIVITAMIN TAB Take one(1) tablet daily. sildenafil (REVATIO) 20 mg tablet Take 1 tablet by mouth as needed. 2 tablets 1 hour before sexual activity Allergies, past surgical history, family history and past medical history were reviewed per this encounter. Medications were reviewed and verified. 07/22/2024 01/22/2025 INTAKE PAIN ASSESSMENT Are you having pain associated with your visit today? No No If pain assessment is 0, no action needed. If pain assessment is positive, please see assessment and plain. Objective BP 124/68 (BP Site: Left Arm, BP Position: Sitting, BP Cuff Size: Regular Adult) Pulse 80 Temp 36.3 C (97.3 F) (Temporal) Resp 18 Ht 175.3 cm (5' 9) Wt 103.4 kg (228 lb) SpO2 95% BMI 33.67 kg/m Physical Exam Vitals reviewed. Constitutional: Appearance: [...] and Affect: Mood normal. Behavior: Behavior normal. Procedures Assessment and Plan Encounter Diagnosis ICD-10-CM 1. Hypertension, benign I10 COMPREHENSIVE METABOLIC PANEL Blood pressure well-controlled on current regimen. Continue present medications. Monitor blood pressure regularly 2. Gastroesophageal reflux disease without esophagitis K21.9 Improved and stable on current medication. 3. Impaired glucose tolerance R73.02 COMPREHENSIVE METABOLIC PANEL HEMOGLOBIN A1C Check A1c 4. Mixed hyperlipidemia E78.2 COMPREHENSIVE METABOLIC PANEL LIPID PANEL BASIC Check lipids 5. Gout involving toe of right foot, unspecified cause, unspecified chronicity M10.9 Stable without episodes. 6. Erectile dysfunction, unspecified erectile dysfunction type N52.9 Improved with sildenafil. Continue present medications. Check labs as above. Monitor blood pressure regularly. Exercise as tolerated. Maintain good diet. Follow-up in 6 months. Radha Merino MD January 29, 2025 Patient is in office for 6 month exam. Patient is having tenderness at bilateral nipples. Symptoms began a few months ago. Patient is also experiencing increased swelling in primarily right leg. Mary Ford LPN January 29, 2025 10:25 AM documented in this encounter [facility] 01-29-2025 Note HNO ID: [id number] Author: MARY FORD LPN Service: ? Author Type: LICENSED NURSE Type: Progress Notes Filed: 01/29/2025 11:06 Note Text: Patient is in office for 6 month exam. Patient is having tenderness at bilateral nipples. Symptoms began a few months ago. Patient is also experiencing increased swelling in primarily right leg. 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 January 31, 2025 8:29am Obesity chronic January 31 8:29am Spinal stenosis of lumbar region with neurogenic claudication acute February 13, 2025 8:56am Spondylolisthesis, lumbar region acute February 13, 2025 8:56am [facility] Work Phone: 1(192) 176-518912-03-2024 Miscellaneous Notes* Telephone Encounter - Ramsey Oropeza LPN - 10/24/2024 8:07 AM EST Last Office Visit: 07/26/24 Next visit: 01/29/25 Requested Prescriptions Pending Prescriptions Disp Refills Valsartan-hydroCHLOROthiazide 320-25 mg per tablet [Pharmacy Med Name: Valsartan-hydroCHLOROthiazide 320-25 MG Oral Tablet] 90 tablet 3 Sig: TAKE 1 TABLET BY MOUTH ONCE DAILY Ramsey Oropeza LPN October 24, 2024 8:07 AM [facility] Telephone encounter Note * Telephone Encounter - Ramsey Oropeza LPN - 10/24/2024 8:07 AM EST Last Office Visit: 07/26/24 Next visit: 01/29/25 Requested Prescriptions Pending Prescriptions Disp Refills Valsartan-hydroCHLOROthiazide 320-25 mg per tablet [Pharmacy Med Name: Valsartan-hydroCHLOROthiazide 320-25 MG Oral Tablet] 90 tablet 3 Sig: TAKE 1 TABLET BY MOUTH ONCE DAILY Ramsey Oropeza LPN October 24, 2024 8:07 AM [facility]10-07-[facility]24 Telephone encounter Note* Telephone Encounter - Mary Ford LPN - 08/28/2024 11:51 AM EDT Last Office Visit: 07-26-2024 Next Scheduled Office Visit: 01-29-2025 Requested Prescriptions Pending Prescriptions Disp Refills simvastatin (ZOCOR) 40 mg tablet [Pharmacy Med Name: Simvastatin 40 MG Oral Tablet] 90 tablet 3 Sig: TAKE 1 TABLET BY MOUTH ONCE DAILY Mary Ford LPN August 28, 2024 11:52 AM [facility]10-07-[facility]24 Miscellaneous Notes* Telephone Encounter - Mary Ford LPN - 08/28/2024 11:51 AM EDT Last Office Visit: 07-26-2024 Next Scheduled Office Visit: 01-29-2025 Requested Prescriptions Pending Prescriptions Disp Refills simvastatin (ZOCOR) 40 mg tablet [Pharmacy Med Name: Simvastatin 40 MG Oral Tablet] 90 tablet 3 Sig: TAKE 1 TABLET BY MOUTH ONCE DAILY Mary Ford LPN August 28, 2024 11:52 AM documented in this encounterOhio[facility]09-26-2024 Telephone encounter Note * Telephone Encounter - Sasha Rogers RN - 08/17/2024 3:55 PM EDT Latest Ref Rng 08/15/2024 Calcium 8.5 - 10.2 mg/dL 9.5 PTH, Intact 15 - 65 pg/mL 59 Vitamin D 25 Hydroxy 31.0 - 80.0 ng/mL 39.3 Above results were reviewed by Dr. Hillman and relayed to the patient. Pt to follow up with PCP for yearly calcium labs. Patient was grateful for the call. Sasha Rogers RN [facility]-26-[facility] Miscellaneous Notes* Telephone Encounter - Sasha Rogers RN - 08/17/2024 3:55 PM EDT Latest Ref Rng 08/15/2024 Calcium 8.5 - 10.2 mg/dL 9.5 PTH, Intact 15 - 65 pg/mL 59 Vitamin D 25 Hydroxy 31.0 - 80.0 ng/mL 39.3 Above results were reviewed by Dr. Hillman and relayed to the patient. Pt to follow up with PCP for yearly calcium labs. Patient was grateful for the call. Sasha Rogers RN documented in this encounterOhiohealth [facility]09-06-2024 Instructions* Patient Instructions* Radha Merino MD - 07/28/2024 2:05 PM EDT Screening schedule The following prevention plan is recommended: RSV Vaccine(1 - 1-dose 60+ series) Never done Pneumococcal Vaccine: 65+(2 of 2 - PPSV23 or PCV20) due on 08/30/2020 Shingrix Vaccine(2 of 2) due on 06/20/2024 Covid-19 Vaccine( - season) due on 07/23/2024 Influenza Vaccine(1) due on 07/23/2024 WHAT YOU CAN DO TO PREVENT FALLS Many falls can be prevented. By making some changes, you can lower your chances of falling. Four things YOU can do to prevent falls for you* and your caregiver 1. Begin a regular exercise program Exercise is one of the most important ways to lower your chances of falling. It makes you stronger and helps you feel better. Exercises that improve balance and coordination (like Errol Chi) are the most helpful. Lack of exercise leads to weakness and increases your chances of falling. Ask your doctor or health care provider about the best type of exercise program for you. 2. Have your health care provider review your medicines Have your doctor or pharmacist review all the medicines you take, even nrjh-lcj-[id number] medicines. As you get older, the way medicines work in your body can change. Some medicines, or combinations of medicines, can make you sleepy or dizzy andcan cause you to fall. 3. Have your vision checked Have your eyes checked by an eye doctor at least once a year. You may be wearing the wrong glasses or have a condition like glaucoma or cataracts that limits your vision. Poor vision can increase your chances of falling. 4. Make your home safer About half of all falls happen at home. To make your home safer: Remove things you can trip over (like papers, books, clothes, and shoes) from stairs and places where you walk. Remove small throw rugs or use double-sided tape to keep the rugs from slipping. Keep items you use often in cabinets you can reach easily without using a step stool. Have grab bars put in next to your toilet and in the tub or shower. Use non-slip mats in the bathtub and on shower floors. Improve the lighting in your home. As you get older, you need brighter lights to see well. Hang light-weight curtains or shades to reduce glare. Have handrails and lights put in on all staircases. Wear shoes both inside and outside the house. Avoid going barefoot or wearing slippers. For more information, contact: Centers for Disease Control and Prevention www.cdc.gov/injury * This information may not apply if you have certain medical conditions. documented in this encounterOhiohealth [facility]09-04-2024 History of Present illness Narrative* Radha Merino MD - 07/26/2024 3:35 PM EDT Images from the original note were not included. Subjective Kerwin Alvarado is a 83 year old male. Kerwin presents today for his Medicare wellness visit. Additionally follows up for multiple medical problems. See list. His chronic medical problems been stable. His blood pressure is under good control on his current regimen. Review of Systems Constitutional: Negative. HENT: Negative. Eyes: Negative. Respiratory: Negative. Cardiovascular: Negative. Gastrointestinal: Negative. Endocrine: Negative. Genitourinary: Negative. Musculoskeletal: Negative. Skin: Negative. Allergic/Immunologic: Negative. Neurological: Negative. Hematological: Negative. Psychiatric/Behavioral: Negative. PAST SURGICAL HISTORY 05/14/2005: COLONOSCOPY FLX DX W/COLLJ SPEC WHEN PFRMD Comment: Colonoscopy 11/11/2015: COLONOSCOPY FLX DX W/COLLJ SPEC WHEN PFRMD Comment: Colonoscopy 11/24/2006: EGD TRANSORAL BIOPSY SINGLE/MULTIPLE No date: ORTHOPEDIC SURGERY HX No date: OSTEOGENESIS STIM, SPINAL APPL No date: PROSTATE NEEDLE BIOPSY ANY APPROACH Comment: Transrectal bx, prostate No date: TONSILLECTOMY PRIMARY/SECONDARY <AGE 12 Comment: Tonsillectomy PAST MEDICAL HISTORY 02/22/2020: Acute ethmoidal sinusitis No date: Acute gastritis without mention of hemorrhage 08/04/2017: Farias's esophagus No date: Bladder neck obstruction 02/22/2020: Burning sensation of feet No date: Calculus of kidney 04/06/2019: Constipation 05/07/2022: Dehydration 12/07/2022: Diastasis of rectus abdominis No date: Diverticulosis of colon (without mention of hemorrhage) Comment: Diverticulosis 12/07/2022: Edema of lower extremity 10/21/2020: Erectile dysfunction No date: Esophageal reflux No date: Essential hypertension No date: Essential hypertension, benign No date: Gout 08/04/2017: Hyperlipidemia 04/23/2011: Hypertension, benign 03/11/2006: Hypertrophy of prostate with urinary obstruction and other lower urinary tract symptoms (LUTS) 08/04/2017: Impaired glucose tolerance 12/07/2022: Intermittent claudication (HCC) 12/07/2022: Low back pain 03/29/2021: Macrocytosis 10/21/2020: Neuropathy 12/07/2022: Nonrheumatic mitral valve regurgitation 12/07/2022: Obesity No date: Other and unspecified hyperlipidemia 12/07/2022: Paresthesia of both hands 10/16/2022: Polyneuropathy No date: Snoring FAMILY HISTORY Problem Relation Age of Onset Heart disease Mother Social History Tobacco Use Smoking status: Never Smokeless tobacco: Never Vaping Use Vaping status: Never Used Substance Use Topics Alcohol use: Yes Comment: occassionally Drug use: No ALLERGIES No Known Allergies MEDICATIONS: sodium bicarbonate 650 mg tablet Take 1 tablet by mouth three times a day. omeprazole (PRILOSEC) 20 mg capsule TAKE 1 CAPSULE BY MOUTH ONCE DAILY allopurinol (ZYLOPRIM) 100 mg tablet TAKE 2 TABLETS BY MOUTH ONCE DAILY metFORMIN (GLUCOPHAGE) 500 mg tablet Take 500 mg by mouth two times a day with meals. yothsmf-zsrnderqj-njdubql D3 500 mg-5 mcg (200 unit) per tablet Take 1 tablet by mouth three times a day. sildenafil (REVATIO) 20 mg tablet Take 1 tablet by mouth as needed. 2 tablets 1 hour before sexual activity Valsartan-hydroCHLOROthiazide 320-25 mg per tablet TAKE 1 TABLET BY MOUTH ONCE DAILY omega-3 acid ethyl esters (LOVAZA) 1 gram capsule TAKE 2 CAPSULES BY MOUTH TWICE DAILY simvastatin (ZOCOR) 40 mg tablet Take 1 tablet by mouth once daily. cyanocobalamin (VITAMIN B-12) 100 mcg tab Take 100 mcg by mouth once daily. vit A/vit C/vit E/zinc/copper (ICAPS AREDS ORAL) Take by mouth. Preservation MULTIVITAMIN TAB Take one(1) tablet daily. Allergies, past surgical history, family history and past medical history were reviewed per this encounter. Medications were reviewed and verified. 06/17/2024 07/22/2024 INTAKE PAIN ASSESSMENT Are you having pain associated with your visit today? No No If pain assessment is 0, no action needed. If pain assessment is positive, please see assessment and plain. Objective BP 138/78 (BP Site: Left Arm, BP Position: Sitting, BP Cuff Size: Regular Adult) Pulse 60 Temp 36.6 C (97.9 F) (Temporal) Resp 18 Ht 175.3 cm (5' 9) Wt 99.8 kg (220 lb) SpO2 99% BMI 32.49 kg/m Physical Exam Vitals reviewed. Constitutional: Appearance: [...] Diagnosis ICD-10-CM 1. Wellness examination Z00.00 2. Screening for depression Z13.31 DEPRESSION SCREENING 3. Encounter for screening examination for other mental health and behavioral disorders Z13.39 ANXIETY SCREENING 4. Advance care planning Z71.89 ADVANCE CARE PLAN DISCUSSION 5. Hypertension, benign I10 COMPREHENSIVE METABOLIC PANEL 6. Mixed hyperlipidemia E78.2 COMPREHENSIVE METABOLIC PANEL LIPID PANEL BASIC 7. Gastroesophageal reflux disease without esophagitis K21.9 8. Farias's esophagus without dysplasia K22.70 9. Impaired glucose tolerance R73.02 HEMOGLOBIN A1C 10. Gout involving toe of right foot, unspecified cause, unspecified chronicity M10.9 11. Screening PSA (prostate specific antigen) Z12.5 PSA/PROSTATE SPECIFIC ANTIGEN SCREENING 12. Anemia, unspecified type D64.9 COMPLETE BLOOD COUNT AND DIFFERENTIAL 13. Polyneuropathy G62.9 14. Burning sensation of feet R20.8 15. Paresthesia of both hands R20.2 16. Edema of lower extremity R60.0 17. Obesity, Class I, BMI 30-34.9 E66.9 18. Erectile dysfunction, unspecified erectile dysfunction type N52.9 All open preventative health maintenance topics discussed with patient in detail. This includes risks and benefits regarding vaccines, cancer screening, healthy life style, and diet. Continue present medications. Check labs as above. Monitor blood pressure regularly. Exercise as tolerated. Maintain good diet. Follow-up in 6 months. Medicare Health Risk Assessment General Health Good Exercise: Minutes/Day 10 min Exercise: Days/Week 3 days Alcohol: Daily Use 2-4 times a month Alcohol: Drinks/Day 1 or 2 Alcohol: 6 or more drinks Never Feel off balance No Concerns: Teeth/Dentures No Concerns: Sexual function No Troubled by feelings None of the above Frequency: Eating healthy diet Nearly every day ADLs requiring help None of the above Safety precautions in home/vehicle Yes Smoke, vape, chews tobacco No Difficulty hearing No Difficulty seeing No Current Providers Specialists: I have reviewed specialist-related care of the patient in the medical record. Medical/Family history review Reviewed and updated problem list, medical/surgical/family/social history, medications, and allergies. Opioid use review Opioid Medications (last 90 days) No data to display Anxiety/Depression screening PHQ-2 Score: 0 (Lower risk for depression) YONG-2 Score: 0 (Lower risk for anxiety) Recommendation: no further intervention at this time Cognitive screening Mini Cog Score: 5 Cognitive screening reviewed and No further action needed (score 3-5). Functional Observation Was the patient's Timed Up & Go test unsteady or ? 12 seconds? No Advance Care Planning Surrogate decision maker documented and/or advance directives scanned in chart Measurements BP 138/78 (BP Site: Left Arm, BP Position: Sitting, BP Cuff Size: Regular Adult) Pulse 60 Temp 36.6 C (97.9 F) (Temporal) Resp 18 Ht 175.3 cm (5' 9) Wt 99.8 kg (220 lb) SpO2 99% BMI 32.49 kg/m Vision Screening: Follows with optometry/ophthalmology Assessment/Plan Medicare annual wellness visit, subsequent (Z00.00) - Counseled on healthy diet and regular exercise - Fall avoidance information provided - Personalized prevention plan provided * Mary Ford LPN - 07/26/2024 3:10 PM EDT Patient in the office today for an annual Medicare Wellness Health Maintenance Due: RSV Vaccine(1 - 1-dose 60+ series) declined Pneumococcal Vaccine: 65+(2 of 2 - PPSV23 or PCV20) 08-30-2019 [facility] PCV 13 Shingrix Vaccine(2 of 2) Now [facility] Covid-19 Vaccine(2022- season) declined Influenza Vaccine(1) stated next month Mary Ford LPN July 26, 2024 3:23 PM documented in this encounterOhio[facility]08-21-2024 History of Present illness Narrative* Socorro Guerrero RT(R) - 07/12/2024 8:40 AM EDT Radiology Service Progress Note PATIENT NAME: Kerwin Alvarado DATE OF SERVICE: July 12, 2024 TIME: 3:50 PM PATIENT IDENTITY VERIFICATION COMPLETED USING TWO (2) IDENTIFIERS: Name and Date of confirmedby patient verbally. FALL SCREENING: Has the patient had 2 falls in the last year or 1 fall with injury or currently using an Ambulatory Assistive Device (Walker, Cane, Wheelchair, Crutches, etc.)? No PATIENT GENDER DATA: Male PATIENT RELEVANT IMPLANT DATA REVIEWED: Yes PATIENT PRESENTS WITH AN IMPLANTABLE OR ATTACHED INSTANTIZER OPERATOR: No RADIOLOGY DEPARTMENT: CT; Exam(s) Completed: Adrenal PERIPHERAL IV DATA: Not applicable SIGNED BY: RT Christy(R) July 12, 2024 3:50 PM documented in this encounterOhiohealth [facility] Hospital08-01-2024 History of Present illness Narrative* Manjeet Massey MD - 06/22/2024 12:50 PM EDT [facility] NEW PATIENT HISTORY AND PHYSICAL EXAM - Virtual Visit PATIENT INFO: Kerwin Alvarado 83 year old REFERRING MFay: Data Unavailable PCP: No primary care provider on file. CC: HPI: 83 year old M w/ hx of recurrent kidney stones being followed by Charlene Martinez Found to have 1.8cm left adrenal gland nodule on ct 01/2024 consistent with likely adenoma Not mentioned in report on 2022, however upon review there appears to be a small adrenal nodule No prior malignancy No facial flushing, palpitations, or difficult to control BP No diabetes but is on metformin Hx of CASTELLANOS Sister had breast cancer and from this PATHOLOGY: LAB: Creatinine Date Value Ref Range Status 03/27/2024 1.05 0.6 - 1.3 MG/DL Final PSA Screening (ng/mL) Date Value 03/16/2023 1.56 Color (no units) Date Value 03/16/2023 Yellow Clarity (no units) Date Value 03/16/2023 Clear Glucose, Urine (no units) Date Value 03/16/2023 Negative Bilirubin, Urine (no units) Date Value 03/16/2023 Negative Ketones, Urine (no units) Date Value 03/16/2023 Negative Specific [place], Ur (no units) Date Value 03/16/2023 1.016 Hemoglobin/Blood,Ur (no units) Date Value 03/16/2023 Negative pH, Urine (no units) Date Value 03/16/2023 6.5 Protein, Urine (no units) Date Value 03/16/2023 Negative Urobilinogen (no units) Date Value 03/16/2023 Negative Nitrites (no units) Date Value 03/16/2023 Negative Leuk Esterase (no units) Date Value 03/16/2023 75 Parul/uL ALLERGIES: ALLERGIES No Known Allergies MEDICATIONS: omeprazole (PRILOSEC) 20 mg capsule TAKE 1 CAPSULE BY MOUTH ONCE DAILY allopurinol (ZYLOPRIM) 100 mg tablet TAKE 2 TABLETS BY MOUTH ONCE DAILY sodium citrate-citric acid (ORACIT) 490-640 mg/5 mL soln Take 30 mL by mouth three times a day withmeals. metFORMIN (GLUCOPHAGE) 500 mg tablet Take 500 mg by mouth two times a day with meals. ferrous sulfate 325 mg (65 mg iron) EC tablet Take 1 tablet by mouth every 12 hours. calcium carbonate (TUMS) 500 mg chew Take 1 tablet by mouth every hour as needed (mouth or hand numbness or tingling). qfomhxj-ctlgshcpd-iplpqxr D3 500 mg-5 mcg (200 unit) per tablet Take 1 tablet by mouth three times a day. sildenafil (REVATIO) 20 mg tablet Take 1 tablet by mouth as needed. 2 tablets 1 hour before sexual activity Valsartan-hydroCHLOROthiazide 320-25 mg per tablet TAKE 1 TABLET BY MOUTH ONCE DAILY omega-3 acid ethyl esters (LOVAZA) 1 gram capsule TAKE 2 CAPSULES BY MOUTH TWICE DAILY simvastatin (ZOCOR) 40 mg tablet Take 1 tablet by mouth once daily. cyanocobalamin (VITAMIN B-12) 100 mcg tab Take 100 mcg by mouth once daily. vit A/vit C/vit E/zinc/copper (ICAPS AREDS ORAL) Take by mouth. Preservation MULTIVITAMIN TAB Take one(1) tablet daily. HISTORIES PAST MEDICAL HISTORY 02/22/2020: Acute ethmoidal sinusitis No date: Acute gastritis without mention of hemorrhage 08/04/2017: Farias's esophagus No date: Bladder neck obstruction 02/22/2020: Burning sensation of feet No date: Calculus of kidney 04/06/2019: Constipation 05/07/2022: Dehydration 12/07/2022: Diastasis of rectus abdominis No date: Diverticulosis of colon (without mention of hemorrhage) Comment: Diverticulosis 12/07/2022: Edema of lower extremity 10/21/2020: Erectile dysfunction No date: Esophageal reflux No date: Essential hypertension No date: Essential hypertension, benign No date: Gout 08/04/2017: Hyperlipidemia 04/23/2011: Hypertension, benign 03/11/2006: Hypertrophy of prostate with urinary obstruction and other lower urinary tract symptoms (LUTS) 08/04/2017: Impaired glucose tolerance 12/07/2022: Intermittent claudication (HCC) 12/07/2022: Low back pain 03/29/2021: Macrocytosis 10/21/2020: Neuropathy 12/07/2022: Nonrheumatic mitral valve regurgitation 12/07/2022: Obesity No date: Other and unspecified hyperlipidemia 12/07/2022: Paresthesia of both hands 10/16/2022: Polyneuropathy No date: Snoring PAST SURGICAL HISTORY 05/14/2005: COLONOSCOPY FLX DX W/COLLJ SPEC WHEN PFRMD Comment: Colonoscopy 11/11/2015: COLONOSCOPY FLX DX W/COLLJ SPEC WHEN PFRMD Comment: Colonoscopy 11/24/2006: EGD TRANSORAL BIOPSY SINGLE/MULTIPLE No date: ORTHOPEDIC SURGERY HX No date: PROSTATE NEEDLE BIOPSY ANY APPROACH Comment: Transrectal bx, prostate No date: TONSILLECTOMY PRIMARY/SECONDARY <AGE 12 Comment: Tonsillectomy FAMILY HISTORY Problem Relation Age of Onset Heart disease Mother SOCIAL HISTORY Social History Tobacco Use Smoking status: Never Smokeless tobacco: Never Vaping Use Vaping Use: Never used Substance Use Topics Alcohol use: Yes Comment: occassionally Drug use: No REVIEW OF SYSTEMS General: No weight loss, malaise or fevers., SEE HPI Genitourinary: No history of dysuria, frequency or incontinence The remainder of the ROS was reviewed and was negative. PHYSICAL EXAMINATION There were no vitals taken for this visit. No PE - Virtual Visit ASSESSMENT/PLAN: Adrenal mass Discussed that this is likely and adrenal adenoma Patient is worried about malignancy, however I reassured patient this is likely benign Recommend better imaging with a CT adrenal protocol Adrenal CT protocol given concern for growth Aldosterone/renin, plasma metanephrines, and cortisol dex suppression test Instructed to take 11pm night before Virtual follow up High risk nature of disease discussed Manjeet Massey MD Staff Electronically signed I have communicated my name and active licensure. The patient's identity and physical location wereverified at the time of this visit. Either the patient or their legal inside sales account representative has been informed of the risks and benefits of -- and alternatives to -- treatment through a remote evaluation andconsents to proceed with the evaluation remotely. During this patient visit I have spent approximately 25 minutes out of 30 in counseling regarding treatment options, medications, test results, and coordinating care and coordinating care. documented in this encounterOhio[facility]06-24-2024 Telephone encounter Note * Telephone Encounter - Mary Ford LPN - 05/15/2024 12:19 PM EDT Last Office Visit: 04-10-2024 Next Scheduled Office Visit: 06-07-2024 Requested Prescriptions Pending Prescriptions Disp Refills omeprazole (PRILOSEC) 20 mg capsule [Pharmacy Med Name: Omeprazole 20 MG Oral Capsule Delayed Release] 90 capsule 3 Sig: TAKE 1 CAPSULE BY MOUTH ONCE DAILY allopurinol (ZYLOPRIM) 100 mg tablet [Pharmacy Med Name: Allopurinol 100 MG Oral Tablet] 180 tablet3 Sig: TAKE 2 TABLETS BY MOUTH ONCE DAILY Mary Ford LPN May 15, 2024 12:20 PM [facility] Miscellaneous Notes* Telephone Encounter - Mary Ford LPN - 05/15/2024 12:19 PM EDT Last Office Visit: 04-10-2024 Next Scheduled Office Visit: 06-07-2024 Requested Prescriptions Pending Prescriptions Disp Refills omeprazole (PRILOSEC) 20 mg capsule [Pharmacy Med Name: Omeprazole 20 MG Oral Capsule Delayed Release] 90 capsule 3 Sig: TAKE 1 CAPSULE BY MOUTH ONCE DAILY allopurinol (ZYLOPRIM) 100 mg tablet [Pharmacy Med Name: Allopurinol 100 MG Oral Tablet] 180 tablet3 Sig: TAKE 2 TABLETS BY MOUTH ONCE DAILY Mary Ford LPN May 15, 2024 12:20 PM documented in this encounterOhiohealth Doctors Hospital06-14-2024 Instructions* Patient Instructions* Charlene Martinez APRN.IGNITION EXPERT - 05/05/2024 11:08 AM EDT Images from the original note were not included. A 24 hr urine test kit should arrive via Fedex AT SOME POINT prior to your next visit. Please call the office ([phone]) or send a [employer] message if your visit is within the next month and you still do have the kit. Please send the completed test back at least 2 weeks prior to your follow up. Most of the time, you do not need to complete a second test immediately following your last visit unless otherwise instructed to do so. Please reach out if you are unsure. We use a 24 hour urine test from a company called [employer]. In general, insurance typically coversthe cost of the test, but occasionally they [...] have another 24 hour testing option [facility] that is typically covered. It is not as comprehensive as the [employer] test so this why it is not our primary choice for testing. You DO NOT need to stop Vit [...] picture of what your risk factors are! EATING A MORE ALKALINE DIET At least 75-80% of the foods you eat should provide an alkaline load in order to reduce the acidityof your urine (I.e., make it more alkaline). Almost all fruits and veggies create alkaline byproducts during digestion and metabolism, making them good choices to reduce acidity. Other alkalinizing foods include: almonds, lentils, sprouts, herbal tea, soy products (soy milk, tofu, soy nuts), and olive oil. MEAL PLAN 2 meal plans options are provided below, which provide (per day): 7-8 servings of fruits + veggies,3 high-calcium foods/drinks, and 80-90 grams of protein You should also be drinking 80-100 oz of water/fluids throughout the day! BREAKFAST 3 fruits/veg, yogurt provides protein and calcium Option #1 -Smoothie w/ 8-12 oz yogurt, milk, or soy milk. Add a banana, berries, and some leafy greens (alongwith other fruits). Also add 2 tbsp ground flaxseed -6-8 oz low-sodium V8 or tomato juice Option #2 -2 scrambled egg whites w/ sauteed veggies (onions, peppers, and tomatoes) -cup of nonfat yogurt with 2 tbsp ground flaxseed mixed in -6-8 oz low-sodium V8 or tomato juice -small banana or other piece of fruit >>SNACK - protein bar or supplement (providing 20-30 grams protein) LUNCH 2 veggies (depending on salad size), milk provides protein and calcium Option #1 -Large salad with mixed greens, cucumbers, tomatoes, broccoli, carrots, sprouts, a few croutons, oil + vinegar or lemon dressing (Add a hard-boiled egg if you didn't have one at breakfast!) -8 oz calcium-fortified almond or soy milk, or low-fat cow's milk Option #2 -Veggie sandwich - 1 flour or corn tortilla w/ hummus, spinach, tomato, shredded carrots, broccoli,mushrooms, onions, peppers, etc... -8 oz calcium-fortified almond or soy milk, or low-fat cow's milk >>SNACK - protein bar or supplement (providing 20-30 grams protein) DINNER 1 starchy veggie, 2-3 servings non-starchy veggie Option #1 -4 oz fish, chicken breast, or turkey breast (baked, broiled, or grilled) - 1/4 of the plate -1 medium baked or sweet potato topped with diced onions & peppers - 1/4 of the plate -steamed broccoli and cauliflower - 1/2 of the plate -8 oz milk or yogurt Option #2 -8 shrimp, skewered (broiled or grilled) - 1/4 of the plate -peas, green beans, or squash - 1/4 of the plate -Steamed brussel sprouts and/or carrots - 1/2 of the plate -8 oz milk or yogurt BETWEEN MEAL SNACK OPTIONS -Fruits, especially those with edible peels or seeds -Handful of almonds, walnuts, or soy nuts -Water flavored with lemon or quartz [place] juice -Any raw veggies -Coffee, tea (no sugar) Copyright 2013 [facility] and [facility] Board, all rights reserved. Produced by Radha Mccray, PhD, RD, of the Department of Clinical Nutrition Services CITRIC ACID AND KIDNEY STONES What is it and how can it help? Citric acid is found in many fruits and fruit juices. It is not a vitamin or mineral (and should not be confused with ascorbic acid - Vit C!), and is not necessary in the diet. It is, however, beneficial for those with stones. It helps to inhibit stone formation and can help to dissolve kidney stone crystals before they form into a stone. Citric acid is protective against stones - the more citrate you have in your urine, the more protected you'll be against forming new stones and ones already there from getting larger. How does citrate protect against stones? Citric acid in it's natural form (ie. citrus fruit - jr, limes) does not alkalinize the urine as citrate does from a medication (ie. Potassium citrate). Citrate binds with calcium in the urine, which in turn, keeps the calcium soluble and unavailable for binding with oxalate or phosphate crystals to form stones. What are the best food sources? Most commonly found in citrus fruits and juices, but jr and limes have the most citric acid content. Other fresh fruits and veggies also contain citrate and will benefit your citrate level, but no to the extent that jr and limes will. Jr and limes will also not contribute excess calories to your diet. A half cup (4 oz) of pure lemon or [place] juice in 32 oz of water OR 32 oz of prepared low-sugar lemonade (think Crystal Light) provide about the same amounts of citric acid. Remember - lemonade is not lemon juice! Lemonade is diluted lemon juice with a lot of sugar! 10 Easy Tips for Increasing your Citric Acid Intake Eat 5 or more fruits and veggies daily. While jr and limes are the most beneficial, increasing your intake of all fruits and veggies (especially those of the citrus variety) will positively contribute to your citrate level. Squeeze fresh lemon or lemon juice into ice cube trays, fill with water, then freeze. You can then use these cubes for your water or other beverages. You can also do the same with limes/quartz valley juice ifyour prefer that taste more. You can also use both together! Squeeze fresh lemon or quartz valley juice to any beverage! Dilute 2 oz lemon/quartz valley juice with 16 oz of water and drink twice a day. Goal should be about 4 oz per day Drink low-sugar, low-calorie lemonade everyday. Full calorie lemonades are not recommended as they contain a lot of fructose, which can increase the risk for stones and weight gain. To make homemade lemonade: squeeze 4 oz (half-cup) of fresh lemon juice into a pitcher and add a small amount of sugar or sugar substitute. You can also use commercially prepared lemonade mixes, such as Minute Maid Light, Tropicana Light, or Crystal Light, since these are high in citric acid content but have very little sugar and calories. Of those, the fpuqy-ej-hrwkjrw drinks have more citric acid than those thatcome in a powder. Make a lemon or quartz valley spritzer: Pour 2 cups fresh lemon/quartz valley juice (about 9 medium jr or limes) in a large pitcher, add 1 cup of Splenda or other no- calorie sweetener, then add 1 liter chilled club soda once the sugar is dissolved, plus a few slices of jr/limes, and some ice cubes. Chill comp letely before serving. Use fresh squeezed lemon or quartz [place] with EVOO on salad - will also save calories by avoiding high-fat salad dressing! Tip - roll jr or limes on a hard surface while pressing down with your palm prior to cutting them. This will help to release their juices more easily. Alternatively, you can heat them for about 30 seconds in the microwave before squeezing. Use fresh squeezed lemon or quartz valley juice on fruit salads too! Not only will you get the added citratebenefit, but the acid will help prevent fresh cut fruits from davey with exposure to air Use lemon or quartz valley juice on fish or in marinades for any type of meat. Look for recipes that containthese ingredients Read labels! Choose products that have citric listed at the beginning of the ingredients list. Somelemon-limes sodas (7Up or Sprite) are also relatively high in citric acid. If you drink dark sodas,consider switching to one of the clear ones with the lemon-quartz valley content. Copyright 2013 [facility] and [facility] Board, all rights reserved. Produced by Radha Mccray, PhD, RD, of the Department of Clinical Nutrition Services (353 PI) SODIUM GUIDELINES Sodium is a mineral found naturally in foods and also added to foods. Sodium plays an important role in maintaining normal fluid balance in the body. A low- sodium diet is important to follow in orderto control your heart failure symptoms and prevent future heart problems. Limiting your sodium and fluid intake will help prevent and control the amount of fluid around yourheart, lungs, or in your legs. When you carry extra fluid, it makes your heart work harder and may increase your blood pressure. A low-sodium diet means more than eliminating the salt shaker from the table! One teaspoon of table salt = 2,300 mg of sodium GENERAL GUIDELINES Eliminate the salt shaker. Avoid using garlic salt, onion salt, MSG, meat tenderizers, broth mixes, Fijian food, soy sauce, teriyaki sauce, barbeque sauce, sauerkraut, olives, pickles, pickle relish, prather bits, and croutons. Use fresh ingredients and/or foods with no added salt. For favorite recipes, you may need to use other ingredients and delete the salt added. Salt can be removed from any recipe except for those containing yeast. Try orange, lemon, quartz valley, pineapple juice, or vinegar as a base for meat marinades or to add tart flavor. Avoid convenience foods such as canned soups, entrees, vegetables, pasta and rice mixes, frozen dinners, instant cereal and puddings, and gravy sauce mixes. Select frozen meals that contain around 600 mg sodium or less Use fresh, frozen, ca-cgdow-jnmr canned vegetables, low-sodium soups, and low- sodium lunchmeats. Look for seasoning or spice blends with no salt, or try fresh herbs, onions, or garlic. Do not use a salt substitute unless you check with your doctor or dietitian first, due to potentialdrug or nutrient interactions. Be aware of and try to limit the Salty Six ([employer]), which include: Breads, rolls, bagels, flour tortillas, and wraps Cold cuts and cured meats Pizza Poultry (much poultry and other meats are injected with sodium. Check the Nutrition Facts for sodium content or read package for a description of a solution, for example, Fresh chicken in a 15% solution. ) Soup Sandwiches Learn to read food labels. Use the label information on food packages to help you make the best low-sodium selections. Food labels are standardized by the U.S. government s National Labeling and Education Act (NLEA). Nutrition labels and an ingredient list are required on most foods, so you can make the best selection for a healthy lifestyle. Review the food label below. Determine the total amount of sodium in this product, or ask your dietitian or health care provider to show you how to read food labels and apply the information to your personal needs. Maintain a healthy body weight. This includes losing weight if you are overweight. Limit your totaldaily calories, follow a low-fat diet, and include physical activity on most, if not all days in order to maintain a healthy weight. Eating a healthy diet to either maintain or lose weight often means making changes to your current eating habits. In order to make sure you are meeting your specific calorie needs, as well as vitamin and mineral needs, a registered dietitian can help. A registered dietitian can provide personalized nutrition education, tailor these general guidelines to meet your needs, and help you implement a personal actionplan. RESTAURANT DINING TIPS Choose a restaurant that will prepare items to your request and substitute items. Plan ahead by reducing your serving sizes of foods high in sodium. Order food a la carte or individually to get only the foods you want. Appetizers Avoid soups and broths. Request fresh bread and rolls without salty, buttery crusts. Avoid breaded items. Salads/vegetables Avoid pickles, canned or marinated vegetables, olives, cured meats, prather and prather bits, seasoned croutons, cheeses, salted seeds, and nuts. Order salad dressings on the side and dip your fork in them before taking a bite of the food item. Request steamed vegetables. Main courses Select meat, poultry, fish, or shellfish choices that include the words broiled, baked, grilled, roasted, and without breading. Request plain noodles or vegetable dishes. Ask the food and beverage server about the low-sodium menu choices, and ask how the food is prepared. Request food to be cooked without salt or monosodium glutamate (MSG). Avoid restaurants that do not allow for special food preparation, such as buffet-style restaurants,diners, or fast food chains. Avoid casseroles and mixed dishes. Ask for gravies and sauces on the side or omit them all together. At fast food restaurants, choose the salad entrees or non-fried and non-breaded entrees, and skip the special sauces, condiments, and cheese.* Avoid breaded items. *Avoid salted condiments and garnishes such as olives, pickles, and relish. Desserts Select fruit, sherbet, gelatin, and plain cakes. CHOOSE GO EASY AVOID MEAT, FISH, EGGS, POULTRY, BEANS 2-3 servings per day Fresh or frozen meat (beef, veal, modi, pork), poultry, fish or shellfish Low-sodium canned meat or fish Eggs Dried or frozen beans and peas Low-sodium processed meats like ham, corned beef, prather, sausage, luncheon meats, hot dogs Low-sodium frozen dinners (less than 600 mg sodium per meal) Frozen, salted meat or fish Processed meats like ham, corned beef, prather, sausage, luncheon meats, hot dogs, spare ribs, salt pork, ham hocks, meat spreads Canned meat or fish Breaded meats Canned beans like kidney, claire, black-eyed peas, lentils Frozen dinners or side dishes with salt DAIRY Naturally low-sodium cheese (polish, goat, brick, ricotta, fresh mozzarella) Cream cheese (light and skim) Milk (1% or skim) Ice cream and frozen yogurt (light and skim) Yogurt (light and skim) Pudding, custard (light and skim) Sour cream (light and skim) Processed and hard cheeses (Central [place], cheddar, mu[place]ster) and cheese spreads Cottage cheese Buttermilk FRUITS, VEGETABLES 5 or more servings per day Fresh, frozen, canned, or dried fruits Fresh or frozen vegetables without added sauces Low-sodium tomato juice or V-8 juice Low-sodium tomato sauce Regular tomato sauce Canned vegetables Canned beans Marinated vegetables such as sauerkraut, pickles, olives Regular tomato juice or V-8 juice BREADS, GRAINS 6 or more servings per day Low-sodium breads Low-sodium cereals (old-fashioned oats, quick cook oatmeal, grits, Cream of Wheat or Rice, shreddedwheat) Pasta (noodles, spaghetti, macaroni) Rice Low-sodium crackers Low-sodium bread crumbs Granola [place] tortillas Plain taco shells Regular bread Bagels [place] muffins Rolls Cold cereals Pancakes, waffles Croissants, sweet rolls, [place], doughnuts Regular crackers Pasta and rice prepared with cream, butter, or cheese sauces Scalloped potatoes Instant cooked cereal packs Bread, baking and stuffing mixes Frozen or boxed mixes for rice, pasta and potatoes Regular bread crumbs Muffins, biscuits, cornbread Flour tortilla SWEETS, SNACKS In moderation Unsalted nuts Low-sodium potato chips, pretzels, popcorn, and other snacks Sherbet, sorbet, Lao ice, popsicles Fig bars, gingersnaps Jelly beans and hard candy Edilberto food cake Home cakes, cookies, and pies Brownies Regular potato chips, pretzels, popcorn and other salted snacks Salted nuts and seeds Pork rinds FATS, OILS, CONDIMENTS Low-sodium butter and margarine Vegetable oils Low-sodium salad dressing Homemade gravy without salt Low-sodium soups Low-sodium broth or bouillon Lemon juice Vinegar Herbs and spices without salt Low-sodium mustard Low-sodium catsup Low-sodium sauce mixes References Dietary Guidelines for Americans Accessed 01/06/2016. [place] [employer]. Sodium blog Accessed 01/06/2016. Copyright 0606-5301 [facility]. All rights reserved. [facility] History of Present illness Narrative* Charlene Martinez APRN.CNP - 05/05/2024 10:30 AM EDT This is a virtual visit using HIPAA compliant video platform. It required patient-provider interaction for the medical decision making as documented below. I have communicated my name and active licensure. The patient's identity and physical location were verified at the time of this visit. Either the patient or their legal inside sales account representative has been informed of the risks and benefits of -- and alternatives to -- treatment through a remote evaluation and consents to proceed with the evaluation remotely. 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 L - no stones/hydro . Horseshoe kidney. New 1.8 cm left adrenal mass -Consult urology oncology for new left adrenal mass -Ok to cx May since he just had CT done at OSH -Will try sodium citrate 30 ml TID as alternative. Discussed it may not be covered by insurance. Alternative options would be to either appeal or try sodium bicarb. He will let me know -BMP in 2-3 weeks -New 24 hour testing in 6 months A 24 hr urine test kit should arrive via [employer] AT SOME POINT prior to your next visit. Please call the office ([phone]) or send a [employer] message if your visit is within the next month and you still do have the kit. Please send the completed test back at least 2 weeks prior to your follow up. Most of the time, you do not need to complete a second test immediately following your last visit unless otherwise instructed to do so. Please reach out if you are unsure. We use a 24 hour urine test from a company called [employer]. In general, insurance typically coversthe cost of the test, but occasionally they [...] have another 24 [facility] that is typically covered. It is not as comprehensive as the [employer] test so this why it is not our primary choice for testing. You DO NOT need to stop Vit [...] for stone prevention: Low urine volume - worse - We recommend increasing your fluid intake to 2.5- 3L/day or 80-100 ounces/day. Not only increase fluids during the day but also drink 1-2 glasses of water before bed, get upat least once thru the night to urinate and then drink another glass of water before returning to sleep. Hypocitraturia (low urine citrate) - worse - Recommend increasing dietary citrate intake. Adding more fruits & vegetables to your diet; in particular citrus fruits like jr, limes, oranges, melons and tomatoes. Aciduria (low urine pH) - worse - Recommend eating an alkaline diet. 75-80% of foods consumed should provide an alkaline load. Fruits and vegetables are great options! Hyperoxaluria (high urine oxalates) - improved - recommend a low oxalate diet, adding calcium rich foods at each meal Hypernatriuria (high urine sodium) - improving - we recommend a low sodium diet <2000mg/d. Read food labels, choose low sodium options, avoid canned, frozen or boxed meals, eat more fresh foods RTC in 6 months w/ [place] Medical Decision Making: Problems: Low: Stable chronic illness Moderate: 2+ stable chronic illnesses Data: Unique source(s) for external note(s) reviewed: 1 Unique test result(s) reviewed: 3+ Unique test(s) ordered: 3+ Risk: Moderate: Drug management Medical Decision Making Level: 4 - Moderate Charlene Martinez APRN.IGNITION EXPERT Chief complaint: Kidney stones Kerwin Alvarado is a 83 year old male who presents today for a Kidney stone management and prevention counseling. s/p L URS w/ Dr. Garcia on 04/21/23. Stent removal 04/28/23. Pt currently: no fever, no chills, no nausea, no vomiting, no dysuria, no gross hematuria, no renalcolic Current stone meds: Allopurinol 200, prescription omega 3 (2 gm), valsartan/hctz 320/25 mg Other Urol meds: None Previous stone procedures: 1 ESWL (attempted) 1 URS 0 PCNL 2 STONES PASSED Age/date of onset: 2001 Personal/Family hx: +/neg () stones, +/neg () gout, neg/neg () DM, neg/neg () hPTH, neg/neg () prostate/ ca INTERVAL HX 12/03/23 Scheduled for parathyroidectomy with Dr. Hillman on 12/24/23 Doing well, no stone-related issues since last visit Denies fever, chills, nausea, vomiting, gross hematuria, dysuria, and renal colic Has back issues, diverticulitis, and hernia problems on the left side but nothing related to stone Meds: Kcit 30 meq, allopurinol 100 INTERVAL HX 05/05/24 S/p parathyroidectomy with Dr. Hillman 12/24/23 Had rectal bleeding January, requiring hospitalization for 4 days at [place] [facility] units of blood Determined to be caused by a combination of diverticulitis and constipation Potassium citrate was stopped mid-January during bleeding episode in case it was adding to bleeding. He has not restarted it Did LL about a month after hospital d/c Denies any stone-related issues or pain. Does have lower back pain but this is MSK in nature Meds: Vit D, Allopurinol There is no height or weight on file to calculate BMI. PAST MEDICAL HISTORY Diagnosis Date Acute ethmoidal [...] bx, prostate TONSILLECTOMY PRIMARY/SECONDARY <AGE 12 Tonsillectomy Family History Problem Relation Age of Onset Heart disease Mother Social History Tobacco Use Smoking status: Never Smokeless tobacco: Never Vaping Use Vaping Use: Never used Substance Use Topics Alcohol use: Yes Comment: occassionally Drug use: No Current Outpatient Medications on File Prior to Visit Medication Sig ursodiol (ACTIGALL) 300 mg capsule Take 300 mg by mouth twice daily. omeprazole (PRILOSEC) 20 mg capsule Take 1 capsule by mouth once daily. simvastatin (ZOCOR) 40 mg tablet Take 1 tablet by mouth once daily. allopurinol (ZYLOPRIM) 100 mg tablet Take 2 tablets by mouth once daily. keTORolac (TORADOL) 10 mg tablet Take 1 tablet by mouth every 8 hours as needed for pain. (Patient not taking: Reported on 06/07/2023) cyanocobalamin (VITAMIN B-12) 100 mcg tab Take 100 mcg by mouth once daily. Valsartan-hydroCHLOROthiazide 320-25 mg per tablet Take 1 tablet by mouth once daily. omega-3 acid ethyl esters (LOVAZA) 1 gram capsule Take 2 capsules by mouth twice daily. sildenafil (REVATIO) 20 mg tablet Take 1 tablet by mouth as needed. 2 tablets 1 hour before sexual activity (Patient taking differently: Take by mouth as needed. 1 to 2 tablets daily as needed) vit A/vit C/vit E/zinc/copper (ICAPS AREDS ORAL) Take by mouth. Preservation ASPIRIN 81 MG TAB Take one (1) tablet daily . MULTIVITAMIN TAB Take one(1) tablet daily. No current facility-administered medications on file prior to visit. ALLERGIES No Known Allergies Results Only on 07/05/2023 Component Date Value Ref Range Status CYSTINE, URINE, QUALITATIVE 07/05/2023 Neg Negative Final URINE VOLUME (PRESERVED) 07/05/2023 2,420 500 - 4,000 mL/24 hr Final CALCIUM OXALATE SATURATION 07/05/2023 2.12 (L) 6.00 - 10.00 Final CALCIUM, URINE 07/05/2023 95 <250 mg/24 hr Final OXALATE, URINE 07/05/2023 27 20 - 40 mg/24 hr Final CITRATE, URINE 07/05/2023 140 (L) >450 mg/24 hr Final CALCIUM PHOSPHATE SATURATION 07/05/2023 0.02 (L) 0.50 - 2.00 Final PH, 24 HR, URINE 07/05/2023 4.802 (L) 5.800 - 6.200 Final URIC ACID SATURATION 07/05/2023 0.81 <1.00 Final URIC ACID, URINE 07/05/2023 226 <800 mg/24 hr Final SODIUM, URINE 07/05/2023 152 (H) 50 - 150 mmol/24 hr Final POTASSIUM, URINE 07/05/2023 60 20 - 100 mmol/24 hr Final MAGNESIUM, URINE 07/05/2023 75 30 - 120 mg/24 hr Final PHOSPHORUS, URINE 07/05/2023 876 600 - 1,200 mg/24 hr Final AMMONIUM, URINE 07/05/2023 25 15 - 60 mmol/24 hr Final CHLORIDE, URINE 07/05/2023 157 70 - 250 mmol/24 hr Final SULFATE, URINE 07/05/2023 40 20 - 80 meq/24 hr Final UREA NITROGEN, URINE 07/05/2023 13.10 6.00 - 14.00 g/24 hr Final PROTEIN CATABOLIC RATE 07/05/2023 1.0 0.8 - 1.4 g/kg/24 hr Final CREATININE, URINE 07/05/2023 1,130 Not Applic. mg/24 hr Final CREATININE/KG BODY WEIGHT 07/05/2023 11.9 11.9 - 24.4 mg/24 hr/kg Final CALCIUM/KG BODY WEIGHT 07/05/2023 1.0 <4.0 mg/24 hr/kg Final CALCIUM/CREATININE RATIO 07/05/2023 84 34 - 196 mg/g creat Final COMMENT 07/05/2023 Note Final Urinalysis: not collected Stone composition: Calculus Composition 1 70% Calcium Phosphate Calculus Composition 2 30% Calcium Oxalate Monohydrate Composition: CALCIUM OXALATE MONOHYDRATE - 80% CALCIUM PHOSPHATE - 20% Images: CHARBEL: 11/25/23 RESULT: Right moiety: -Renal length: 1.7 cm -Parenchyma: Normal parenchymal echogenicity. Normal parenchymal thickness. -Collecting system: No hydronephrosis. -Calculus: No echogenic, shadowing calculus. -Lesion: None. Left moiety: -Renal length: 10.8 cm -Parenchyma: Normal parenchymal echogenicity. Normal parenchymal thickness. -Collecting system: No hydronephrosis. -Calculus: Calculus described on prior CT is not seen. -Lesion: None. Bladder: Normal sonographic appearance. Prevoid volume: 172 cc Post void volume: [address]: 03/24/23 RESULT: Limitations: Unenhanced imaging is limited for [...] in the unenhanced kidney. Bladder: No calculus. 24 HOUR URINE: Component Latest Ref Rng & Units 07/05/2023 10/18/2023 CYSTINE, URINE, QUALITATIVE Neg CANCELED URINE VOLUME (PRESERVED) 500 - 4,000 mL/24 hr 2,420 2,880 CALCIUM OXALATE SATURATION 6.00 - 10.00 2.12 (L) 1.87 (L) CALCIUM, URINE <250 mg/24 hr 95 84 OXALATE, URINE 20 - 40 mg/24 hr 27 48 (H) Citrate, Urine >450 mg/24 hr 140 (L) 393 (L) CALCIUM PHOSPHATE SATURATION 0.50 - 2.00 0.02 (L) 0.59 PH, 24 HR, URINE 5.800 - 6.200 4.802 (L) 6.779 (H) URIC ACID SATURATION <1.00 0.81 0.05 URIC ACID, URINE <800 mg/24 hr 226 370 SODIUM, URINE 50 - 150 mmol/24 hr 152 (H) 240 (H) POTASSIUM, URINE 20 - 100 mmol/24 hr 60 136 (H) Magnesium, Urine 30 - 120 mg/24 hr 75 111 Phosphorus, Urine 600 - 1,200 mg/24 hr 876 1,210 (H) AMMONIUM, URINE 15 - 60 mmol/24 hr 25 11 (L) CHLORIDE, URINE 70 - 250 mmol/24 hr 157 242 SULFATE, URINE 20 - 80 meq/24 hr 40 46 Urea Nitrogen, Urine 6.00 - 14.00 g/24 hr 13.10 14.48 (H) Protein Catabolic Rate 0.8 - 1.4 g/kg/24 hr 1.0 1.1 CREATININE, URINE Not Applic. mg/24 hr 1,130 1,220 CREATININE/KG BODY WEIGHT 11.9 - 24.4 mg/24 hr/kg 11.9 12.5 CALCIUM/KG BODY WEIGHT <4.0 mg/24 hr/kg 1.0 0.9 CALCIUM/CREATININE RATIO 34 - 196 mg/g creat 84 68 Comment Note Note METABOLIC LABS: Lab Results Component Value Date VITD25 28.3 (L) 02/16/2024 VITD25 34.0 09/30/2023 URICACID 5.4 09/30/2023 PTH 119 (H) 02/16/2024 PTH 64 01/18/2024 PTH 39 12/25/2023 ICAL 1.33 (H) 09/30/2023 CA 8.9 03/27/2024 CA 8.9 02/16/2024 CA 9.4 01/18/2024 MG 2.0 09/30/2023 24-Hour Diet Recall: Dietary considerations: No lunch meat B'fast: cereal (Cheerios, raisin bran, shredded wheat) w/ 2% milk, blueberries, and walnuts Lunch: protein shake (protein powder, blueberries, pb, milk - sometimes m&ms) Dinner: protein (tries to avoid beef), may have low fat burger or split a steak, pork chops, chicken, salmon or fish 2 x/week, veggies (broccoli, corn, peas), cottage cheese or apple sauce -Snacks- cereal, toast Fluids: + water, + coffee, no tea, rare soda (Coke), no sports drinks, no energy drinks, no smoothies, + protein shakes, no juice, occ lemonade, + 2% milk, occ ETOH (wine) Dietary changes since last meetin12/03/23 - had ham, sweet potatoes, and other TG foods 05/05/24 - soft diet, prune juice, bowels are loose on purpose but only going once daily documented in this encounterOhio[facility]05-21-[facility]24 History of Present illness Narrative* Radha Merino MD - 04/11/2024 1:05 PM EDT Subjective Kerwin Alvarado is a 83 year old male.Patient in the office today for a pre-op exam. Patient will behaving an Implantation of spinal cord stimulator trial leads, will proceed to permanent stimulator in the following 1-2 weeks if trial is successful. Procedure to be done at [facility] by Sp Mendoza D.O. Surgery is not scheduled at this time Patient denies any prior difficulties with anesthesia. He also denies any cardiovascular, pulmonary, or neurological symptoms. Review of Systems Constitutional: Negative. HENT: Negative. Eyes: Negative. Respiratory: Negative. Cardiovascular: Negative. Gastrointestinal: Negative. Endocrine: Negative. Genitourinary: Negative. Musculoskeletal: Negative. Skin: Negative. Allergic/Immunologic: Negative. Neurological: Negative. Hematological: Negative. Psychiatric/Behavioral: Negative. PAST SURGICAL HISTORY Procedure Laterality Date COLONOSCOPY FLX DX W/COLLJ SPEC WHEN PFRMD 05/14/2005 Colonoscopy COLONOSCOPY FLX DX W/COLLJ SPEC WHEN PFRMD 11/11/2015 Colonoscopy EGD TRANSORAL BIOPSY SINGLE/MULTIPLE 11/24/2006 ORTHOPEDIC SURGERY HX PROSTATE NEEDLE BIOPSY ANY APPROACH Transrectal bx, prostate TONSILLECTOMY PRIMARY/SECONDARY <AGE 12 Tonsillectomy PAST MEDICAL HISTORY Diagnosis Date Acute ethmoidal [...] of both hands 12/07/2022 Polyneuropathy 10/16/2022 Snoring FAMILY HISTORY Problem Relation Age of Onset Heart disease Mother Social History Tobacco Use Smoking status: Never Smokeless tobacco: Never Vaping Use Vaping Use: Never used Substance Use Topics Alcohol use: Yes Comment: occassionally Drug use: No ALLERGIES No Known Allergies MEDICATIONS: metFORMIN (GLUCOPHAGE) 500 mg tablet Take 500 mg by mouth two times a day with meals. ferrous sulfate 325 mg (65 mg iron) EC tablet Take 1 tablet by mouth every 12 hours. calcium carbonate (TUMS) 500 mg chew Take 1 tablet by mouth every hour as needed (mouth or hand numbness or tingling). ggvybio-rzgrzjzxi-jenykjd D3 500 mg-5 mcg (200 unit) per tablet Take 1 tablet by mouth three times a day. sildenafil (REVATIO) 20 mg tablet Take 1 tablet by mouth as needed. 2 tablets 1 hour before sexual activity Valsartan-hydroCHLOROthiazide 320-25 mg per tablet TAKE 1 TABLET BY MOUTH ONCE DAILY omega-3 acid ethyl esters (LOVAZA) 1 gram capsule TAKE 2 CAPSULES BY MOUTH TWICE DAILY potassium citrate ER (UROCIT-K 10) 10 mEq (1,080 mg) Take 1 tablet by mouth three times a day with meals. omeprazole (PRILOSEC) 20 mg capsule Take 1 capsule by mouth once daily. simvastatin (ZOCOR) 40 mg tablet Take 1 tablet by mouth once daily. allopurinol (ZYLOPRIM) 100 mg tablet Take 2 tablets by mouth once daily. cyanocobalamin (VITAMIN B-12) 100 mcg tab Take 100 mcg by mouth once daily. vit A/vit C/vit E/zinc/copper (ICAPS AREDS ORAL) Take by mouth. Preservation MULTIVITAMIN TAB Take one(1) tablet daily. Allergies, past surgical history, family history and past medical history were reviewed per this encounter. Medications were reviewed and verified. Objective BP 118/76 (BP Site: Left Arm, BP Position: Sitting, BP Cuff Size: Regular Adult) Pulse 64 Temp 36.4 C (97.6 F) (Temporal) Resp 18 Ht 175.3 cm (5' 9) Wt 99.3 kg (219 lb) SpO2 97% BMI 32.34 kg/m Physical Exam Vitals reviewed. Constitutional: Appearance: [...] Assessment and Plan Encounter Diagnosis ICD-10-CM 1. Preop examination Z01.818 2. Hypertension, benign I10 Patient is medically maximized for procedure. He is cleared for anesthesia. Radha Merino MD * Mary Ford LPN - 04/10/2024 4:40 PM EDT Patient in the office today for a pre-op exam. Patient will be having an Implantation of spinal cord stimulator trial leads, will proceed to permanent stimulator in the following 1-2 weeks if trial is successful. Procedure to be done at [facility] by Sp Mendoza D.O. Surgery is not scheduled at this time. No refills needed Mary Ford LPN April 10, 2024 4:27 PM documented in this encounterOhio[facility]04-11-2024 History of Present illness Narrative* Kika Dietrich RN - 03/02/2024 3:04 PM EDT PRIMARY CARE COORDINATION FOLLOW-UP NOTE Provider Action/FYI Patient identified by name and date of . YES Spoke to patient Summary: EMR reviewed. Patient notified of labs entered by Dr. Merino as he was requesting. Patient stated [facility]was [facility] by [facility] and is planning on going to get these done tomorrow. No further questions at this time. 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 Patient stated overall he is feeling well. He had no complaints. He denies any activebleeding. No dizziness or lightheaded upon changing positions. Patient had asked about further lab work to check his hemoglobin to see where it is at. Will send message to nurses. At this time he hasno other questions or concerns. 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 Patient identified by name and . EMR reviewed. Introduced myself and my role. Reviewed patient's discharge paperwork that may include any activity restrictions, dietary instructions, follow up labs or tests, and follow up appointments. Medications reconciled. Patient aware of medication changes. No issues identified with current ca dication list. Patient stated that he has not had any more rectal bleeding since returning home norhas he had any dizziness. Patient stated I was probably bleeding for quite some time, but didn't realize it. I am not one to look at things. Patient stated that he has many questions that he would like to discuss with Dr. Merino at his post hospital discharge appointment. Message sent to Janki requesting outreach to patient to schedulethis appointment. Patient denies any further questions at this time. UPCOMING APPOINTMENTS: Radha Merino MD [Primary Care Provider] - Within 1 Week HHC/THERAPY/DME/LAB ORDERS: N/A DIET/ACTIVITY RESTRICTIONS: Discharge Diet: Low fat / Low cholesterol Weight Bearing Status: Weight bearing as tolerated TCM Eligibility Documentation Program: Transitional Care Management Status: Identified Start Date: 02/12/2024 Responsible Staff: Kika Dietrich RN Discharge date: 02/12/2024 (Program start) Date of initial contact: 02/14/2024 Initial contact Target status: Successful; Contact made within 2 business days post-discharge SUMMARY: -Pt discharged from [facility] on 02/12/24. -Follow up appointment on to be scheduled. -Medication review done yes. -Admitted for: acute blood loss anemia due to diverticular bleed CONCERNS: N/A NEW MEDICATIONS: ferrous sulfate 325 mg (65 mg iron) tablet,delayed release (DR/EC) 325 mg PO BID Qty: 60 2RF MEDS HELD/DISCONTINUED: aspirin [Adult Aspirin Regimen] 81 mg tablet,delayed release (DR/EC) 81 mg PO DAILY BRIEF HOSPITAL COURSE: #Acute anemia due to lower GI bleed * S/p transfusion of 5 units of packed red blood cells since admission * Hemoglobin today is around 8. * CT abdomen and pelvis showed evidence of sigmoid diverticulosis. Colonoscopy showed extensive diverticulosis in the rectosigmoid, sigmoid and descending colon as well as the splenic flexure with blood in the entire examined colon. There was severe diverticulosis in the sigmoid colon with active bleeding coming from the diverticular opening and this was injected and treated with heater probe clips were placed. * Hb today is 8.2 today * Receiving IV iron today. #Orthostatic hypotension: Likely due to GI bleed. Was hydrated with IV fluids. 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 On gabapentin. #Hyperlipidemia: On statin Hypertension: On valsartan-hydrochlorothiazide. #Nonalcoholic steatohepatitis: On ursodiol Kika Dietrich RN [phone] documented in this encounterOhiohealth [facility] Hospital03-23-2024 Discharge summary Author Masha Dominguez [facility] February 12, 2024 2:59pm Note Date/Time February 12, 2024 2:5 8pm [facility] Medical Records Department [address] [place] [address] Discharge Summary 02/12/24 1454 MR#: [id number] Acct: [id number] Name: KERWIN ALVARADO Rep #:[id number] : 1940 83 From: Masha Dominguez MD PCP: Dr. Radha Merino MD Status:ADM IN Location: [place] [address] Providers Date of Admission: 02/08/24 Date of Discharge: 02/12/24 Primary Care Physician: Dr. Radha Merino MD Consultations 02/08/24 14:32 Consult: Gastroenterology Routine Consulting Provider: [facility] Reason for Consult: lower GI bleed, anemia EMERGENT Consult: No MD Notified: Yes Date Notified: 02/08/24 Time Notified: 14:33 Method of Notification: Text Reason For Visit: ANEMIA, ORTHOSTATIC HYPOTENSION Diagnosis Discharge Diagnosis (1) Acute lower GI bleeding: Status: Acute Code(s): K92.2 - Gastrointestinal hemorrhage, unspecified Plan #Acute anemia due to lower GI bleed * S/p transfusion of 5 units of packed red blood cells since admission * Hemoglobin today is around 8. * CT abdomen and pelvis showed evidence of sigmoid diverticulosis. Colonoscopy showed extensive diverticulosis in the rectosigmoid, sigmoid and descending colon as well as the splenic flexure with blood in the entire examined colon. There was severe diverticulosis in the sigmoid colon with active bleeding coming from the diverticular opening and this was injected and treated with heater probe clips were placed. * Hb today is 8.2 today * Receiving IV iron today. * #Orthostatic hypotension: Likely due to GI bleed. Was hydrated with IV fluids. 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 On gabapentin. #Hyperlipidemia: On statin Hypertension: On valsartan-hydrochlorothiazide. #Nonalcoholic steatohepatitis: On ursodiol DVT prophylaxis: SCDs. CODE STATUS: Full code DIsposition: anticipate dc home tomorrow if he doesnt bleed again. * Medications at Discharge Home Medications cyanocobalamin (vitamin B-12) 1,000 mcg tablet (Vitamin B-12) 1,000 mcg PO QDAY 06/08/18 multivitamin 1 tab PO QDAY 06/08/18 omeprazole 20 mg capsule,delayed release 20 mg PO QDAY 06/08/18 simvastatin 40 mg tablet 40 mg PO QPM 06/08/18 valsartan 320 mg-hydrochlorothiazide 25 mg tablet (Diovan HCT) 1 tab PO QDAY 06/08/18 allopurinol 100 mg tablet 100 mg PO BID 06/13/18 omega-3 acid ethyl esters 1 gram capsule (Lovaza) 1 cap PO BID 09/11/19 vit C 250 mg-vit E 90 mg-zinc 40 mg-copper 1 ln-yqbnsm-yocjuk capsule (PreserVision AREDS-2) 2 tab PO DAILY 09/23/20 sildenafil (pulm.hypertension) 20 mg tablet 20 mg PO Q24H PRN sexual activity 09/29/21 ursodiol 300 mg capsule 300 mg PO BID #60 caps 03/25/23 diclofenac sodium 75 mg tablet,delayed release 75 mg PO BID PRN pain #180 tabs 09/23/23 amitriptyline 25 mg tablet 25 mg PO QHS PRN sleep 02/08/24 potassium citrate 10 mEq (1,080 mg) tablet,extended release 10 meq PO TID 02/08/24 ferrous sulfate 325 mg (65 mg iron) tablet,delayed release 325 mg PO BID #60 tabs 02/12/24 Hospital Course Operations None Procedures Colonoscopy Summary of Care Provided Minutes Spent on Discharge: 55 Hospital Course: KERWIN ALVARADO, is a 83 M who presents via the ED on 02/08/2024 with a complaint oflightheaded and dizzy. He was having some coffee and says he tried to stand up and felt dizzy and lightheadedness. He has had diarrhea for about a week and noticed blood when he wiped himself today. His diarrhea has started improving. Hedenied any abdominal pain, chest pain, nausea or vomiting or any other symptoms.Review of systems is otherwise negative. Patient admits to a 5 to 7 pound weight loss over the last month but says this has been intentional as he was recently diagnosed with fatty liver disease and so is trying to lose weight. Hehas been on the Nutrisystem diet for this. He does have a history of diverticulosis. Vitals in the ED were BP of 114/89, AK of 93, RR of 16 and oxygen sats of 98% onroom air. CBC showed WBC of 7.1 with Hb of 8.1, wbc of 7.1 and platelets of 259. Chemistry showed lactic acid of 2.3 and creatinine of 1.23 as well as sodium of 136. CT of the abdomen and pelvis showed a stable 9 mm calculus in the right renal pelvis with heterogeneous enlargement of the prostate with calcification and small left adrenal adenoma with fatty infiltration of the liver and sigmoid diverticulosis. Stool for occult blood done was positive though rectal exam also showed that there was layne blood. Orthostatics checkedwere positive. He was admitted to be managed for dizziness due to positive orthostatic hypotension in the setting of rectal bleeding. He was admitted and hydrated with IV fluids. His hemoglobin subsequently dropped some more to 6.6 due to ongoing rectal bleeding. He was transfused with2 units of packed red blood cells. He did require another unit and in total during his admission stay was transfused a total of 5 units of packed red blood cells. Gastroenterology was consulted. Patient had EGD which showed a normal esophagus with small hiatal hernia and gastric erosions with no stigmata of recent bleeding and no gross lesions in the fourth portion of the duodenum. Patient had colonoscopy which showed extensive diverticulosis most severe in thesigmoid colon but affecting the rectosigmoid and descending colon as well as sigmoid colon and splenic flexure with blood in the entire examined colon. There was active bleeding coming from the diverticular opening in the sigmoid colon and this was injected and treated with heater probe. Hemoglobin was 8.2 after the colonoscopy but it dropped to 7.5 on the day of discharge. Patient had had no rectal bleeding since the colonoscopy though. He was transfused withanother unit of packed red blood cells before discharge. He also did receive iron infusion. He was started on p.o. iron supplementation. He was discharged home on 02/12/2024 on p.o. ferrous sulfate 325 mg twice daily. He is to follow-up with his primary care doctor and is to follow-up with gastroenterology on outpatient basis. Of note, patient's aspirin 81 mg daily was also discontinued at time of discharge. Patient seen and examined prior to discharge. He had no active complaints and had an uneventful night. Review of systems otherwise negative. Labs and vitalsreviewed. Home medication reviewed and reconciled. Physical Exam Const alert, oriented x3 and no apparent distress General Appearance: cooperative, comfortable, well kempt and well developed HEENT normocephalic, head/scalp atraumatic, hearing grossly normal bilaterally, moist oral mucous membranes and oropharynx normal Mouth: oral and palatal mucosa normal Eyes PERRL and EOMs intact bilaterally Neck no lymphadenopathy and supple Lymph Lymphatic: no lymphadenopathy noted and no lymphedema noted Resp normal respiratory effort, normal air movement and clear to auscultation bilaterally Cardio regular rate, regular rhythm, S1 normal heart sound, S2 normal heart sound and no murmurs GI normal to inspection, nondistended, normoactive bowel sounds, soft to palpation and non-tender Extremity normal to inspection, full ROM, normal capillary refill, no clubbing, cyanosis or edema and no calf tenderness General Extremity: no tenderness to palpation of joints or extremities Skin no rashes or lesions noted General Skin Exam: no breakdown Neuro oriented x3, CN's II-XII intact bilaterally, moves all extremities, no focal motor deficits, no sensory deficits noted and deep tendon reflexes 2+ bilaterally Sensorium / Orientation: awake and alert Motor Exam: strength 5/5 throughout and general weakness Psych thought process normal and cooperative Appearance: appropriate Weight / BMI Weight Weight: 213 lb 2.992 oz Body Mass Index (BMI) 31.4 ABG / Lab / Microbiology Data 02/12/24 05:02 02/12/24 05:02 Laboratory: Laboratory Results - last 24 hr 02/12/24 05:02: WBC 6.9, RBC 2.42 L, Hgb 7.5 L, Hct 23.2 L, MCV 95.9 H, MCH 31.0, MCHC 32.3, RDW Std Deviation 62.3 H, RDW Coeff of Lorin 19.1 H, Plt Count 156, MPV 10.0, Immature Gran % (Auto) 0.400, Neut % (Auto) 64.9, Lymph % (Auto) 17.6 L, [place] % (Auto) 10.7 H, Eos % (Auto) 5.8 H, Baso % (Auto) 0.6, Absolute Neuts (auto) 4.5, Absolute Lymphs (auto) 1.21, Nucleated RBC % 0, Sodium 142, Potassium 3.5, Chloride 115 H, Carbon Dioxide 23.0, Anion Gap 4 L, BUN 9, Creatinine 0.78, Estim Creat Clear Calc 83.07, Est GFR (MDRD) Af Amer 123, Est GFR (MDRD) Non-Af 102, BUN/Creatinine Ratio 11.6, Glucose 104, Calcium 7.9 L 02/12/24 09:45: Blood Type A POSITIVE, Antibody Screen NEGATIVE, Crossmatch See Detail Microbiology: Microbiology 02/10/24 03:20 Stool C. difficile GDH Antigen & Toxins - Final 02/10/24 03:20 Stool Clostridioides difficile (PCR) - Final 02/10/24 03:20 Stool Enteric Bacteriology - Final 02/08/24 10:20 Stool Stool Occult Blood (JAYE) - Final Occult Blood Positive D/C Instructions Discharge Diet: Low fat / Low cholesterol Weight Bearing Status: Weight bearing as tolerated Call your doctor if you observe: Fever of 101 or Higher, Shortness of breath, Dizziness, Swelling in the ankles and Chest pain Meaningful Use Info Meaningful Use Diagnoses (Choose all that apply): None applicable Discharge Plan Admission Admit Date/Time: 02/08/24 12:34 Primary Reason for Your Visit: acute blood loss anemia due to diverticular bleed Attending Provider: Masha Dominguez Primary Care Provider: Radha Merino Instructions Patient Instructions: Understanding Rectal Bleeding, ED Diverticulosis Discharge Orders/Prescriptions Prescriptions: New ferrous sulfate 325 mg (65 mg iron) tablet,delayed release (DR/EC) 325 mg PO BID Qty: 60 2RF Continued cyanocobalamin (vitamin B-12) [Vitamin B-12] 1,000 mcg tablet 1,000 mcg PO QDAY valsartan-hydrochlorothiazide [Diovan HCT] 320-25 mg tablet 1 tab PO QDAY multivitamin tablet 1 tab PO QDAY simvastatin 40 mg tablet 40 mg PO QPM omeprazole 20 mg capsule,delayed release(DR/EC) 20 mg PO QDAY allopurinol 100 mg tablet 100 mg PO BID omega-3 acid ethyl esters [Lovaza] 1 gram capsule 1 cap PO BID PreserVision AREDS-2 [id number] pm-vcnr-wz-mg capsule 2 tab PO DAILY Rx Instructions: administer with meals sildenafil (pulm.hypertension) 20 mg tablet 20 mg PO Q24H PRN (Reason: sexual activity) Patient Comments: TAKE 1-3 TABLETS DAILY ONE HOUR PRIOR TO INTERCOURSE diclofenac sodium 75 mg tablet,delayed release (DR/EC) 75 mg PO BID PRN (Reason: pain) Qty: 180 2RF amitriptyline 25 mg tablet 25 mg PO QHS PRN potassium citrate 10 mEq (1,080 mg) tablet extended release 10 meq PO TID Patient Comments: pt states he normally takes 1 bid. ursodiol 300 mg capsule 300 mg PO BID Qty: 60 11RF Discontinued aspirin [Adult Aspirin Regimen] 81 mg tablet,delayed release (DR/EC) 81 mg PO DAILY Referrals / Follow Up: Portillo Buck DO [Med Staff - Active Staff] - Within 2 Weeks Radha Merino MD [Primary Care Provider] - Within 1 Week Disposition Disposition (needs filled in before D/C Order can be placed): Home, Self Care Charges/Coding Visit Charges Inpatient E&M: 95190 Disch Hosp >30min 02/12/24 1459 <Electronically signed by Masha Dominguez MD> Cosigner Signature (if applicable): CC: Dr. Masha Dominguez MD; Dr. Radha Merino MD~ Signed [facility] Work Phone: [phone]) 677-119303-23-2024 Discharge summary Author [facility]asha [facility] February 12, 2024 2:54pm Note Date/Time February 12, 2024 2:5 4pm [facility] Medical Records Department [address] [place] [id number] Instructions for Home/Discharge Instructions 02/12/24 1453 MR#: [id number] Acct: [id number] Name: KERWIN ALVARADO Rep #:[id number] : 1940 83 From: Masha Dominguez MD PCP: Dr. Radha Merino MD Status:ADM IN Discharge Instructions Diet Discharge Diet: Low fat / Low cholesterol Activity Discharge Activity: Return to Normal Activity Weight Bearing Status: Weight bearing as tolerated Dressing / Incision Call your doctor if you observe: Fever of 101 or Higher, Shortness of breath, Dizziness, Swelling in the ankles and Chest pain Follow Up Care Test Results: Test results from this visit will be discussed in further detail at your follow- up appointment, if applicable. Discharge Plan Admission Admit Date/Time: 02/08/24 12:34 Primary Reason for Your Visit: acute blood loss anemia due to diverticular bleed Attending Provider: Masha Dominguez Primary Care Provider: Radha Merino Instructions Patient Instructions: Understanding Rectal Bleeding, ED Diverticulosis Discharge Orders/Prescriptions Prescriptions: New ferrous sulfate 325 mg (65 mg iron) tablet,delayed release (DR/EC) 325 mg PO BID Qty: 60 2RF Continued cyanocobalamin (vitamin B-12) [Vitamin B-12] 1,000 mcg tablet 1,000 mcg PO QDAY valsartan-hydrochlorothiazide [Diovan HCT] 320-25 mg tablet 1 tab PO QDAY multivitamin tablet 1 tab PO QDAY simvastatin 40 mg tablet 40 mg PO QPM omeprazole 20 mg capsule,delayed release(DR/EC) 20 mg PO QDAY allopurinol 100 mg tablet 100 mg PO BID omega-3 acid ethyl esters [Lovaza] 1 gram capsule 1 cap PO BID PreserVision AREDS-2 [id number] kj-rcfa-aa-mg capsule 2 tab PO DAILY Rx Instructions: administer with meals sildenafil (pulm.hypertension) 20 mg tablet 20 mg PO Q24H PRN (Reason: sexual activity) Patient Comments: TAKE 1-3 TABLETS DAILY ONE HOUR PRIOR TO INTERCOURSE diclofenac sodium 75 mg tablet,delayed release (DR/EC) 75 mg PO BID PRN (Reason: pain) Qty: 180 2RF amitriptyline 25 mg tablet 25 mg PO QHS PRN potassium citrate 10 mEq (1,080 mg) tablet extended release 10 meq PO TID Patient Comments: pt states he normally takes 1 bid. ursodiol 300 mg capsule 300 mg PO BID Qty: 60 11RF Discontinued aspirin [Adult Aspirin Regimen] 81 mg tablet,delayed release (DR/EC) 81 mg PO DAILY Referrals / Follow Up: Portillo Buck DO [Med Staff - Active Staff] - Within 2 Weeks Radha Merino MD [Primary Care Provider] - Within 1 Week Disposition Disposition (needs filled in before D/C Order can be placed): Home, Self Care 02/12/24 8814<Electronically signed by Masha Dominguez MD>Masha Dominguez MD CC: Dr. Radha Merino MD ~ Signed [facility] [facility] Work Phone: 1(356) 106-883703-22-2024 Progress note Author Portillo Buck [facility] February 11, 2024 5:16pm Note Date/Time February 11, 2024 5:1 6pm [facility] Medical Records Department [address] [place] [address] Progress Note - GI 02/11/24 1714 MR#: [id number] Acct: [id number] Name: KERWIN ALVARADO Rep #:[id number] : 1940 83 From: Portillo Friend DO PCP: Dr. Radha Merino MD Status:ADM IN Location: [place] [address] Subjective Subjective Patient underwent emergent EGD and colonoscopy yesterday. His upper endoscopy did not show any signs of acute GI bleeding. His colonoscopy did have active GIbleeding that was seen and treated yesterday endoscopically. Objective Data Objective Data Vital Signs: Vital Signs Temp Pulse Resp BP Pulse Ox O2 Del Method 97.9 F 80 18 145/70 H 99 Room Air 02/11/24 15:19 02/11/24 15:19 02/11/24 15:19 02/11/24 15:19 02/11/24 15:19 02/11/24 15:19 Oxygen Delivery Method Room Air Weight: 213 lb 2.992 oz Body Mass Index (BMI) 31.4 Intake & Output: Intake and Output for Last 24 Hours 02/09/24 02/10/24 02/11/24 23:59 23:59 23:59 Intake Total 4910 / 4910 3433.25 / 3433.25 1610 / 1610 Output Total 600 / 600 750 / 750 480 / 480 Balance 4310 / 4310 2683.25 / 2683.25 1130 / 1130 Lab / Micro Data 02/11/24 05:50 02/11/24 05:50 Labs: Laboratory Results - last 24 hr 02/08/24 11:35: Crossmatch See Detail 02/10/24 15:00: Diff Path Review March02/10/24 22:30: Hgb 8.6 L, Hct 26.4 L 02/11/24 05:50: WBC 10.0, RBC 2.57 L, Hgb 8.2 L, Hct 24.3 L, MCV 94.6 H D, MCH 31.9, MCHC 33.7, RDW Std Deviation 62.6 H, RDW Coeff of Lorin 19.2 H, Plt Count 144 L, MPV 9.4, Immature Gran % (Auto) 0.300, Neut % (Auto) 74.5 H, Lymph % (Auto) 12.2 L, [place] % (Auto) 8.5, Eos % (Auto) 4.1, Baso % (Auto) 0.4, Absolute Neuts (auto) 7.4, Absolute Lymphs (auto) 1.22, Nucleated RBC % 0, Sodium 143, Potassium 3.8, Chloride 116 H, Carbon Dioxide 23.0, Anion Gap 4 L, BUN 13, Creatinine 0.83, Estim Creat Clear Calc 80.07, Est GFR (MDRD) Af Amer 114, Est GFR (MDRD) Non-Af 94, BUN/Creatinine Ratio 15.6, Glucose 99, Calcium 7.5 L Micro: Microbiology 02/10/24 03:20 Stool C. difficile GDH Antigen & Toxins - Final 02/10/24 03:20 Stool Clostridioides difficile (PCR) - Final 02/10/24 03:20 Stool Enteric Bacteriology - Final 02/08/24 10:20 Stool Stool Occult Blood (JAYE) - Final Occult Blood Positive Physical Exam Const alert, oriented x3 and no apparent distress Constitutional Narrative: looks very pale General Appearance: cooperative HEENT normocephalic, head/scalp atraumatic, moist oral mucous membranes and oropharynxnormal Eyes PERRL and EOMs intact bilaterally Neck no lymphadenopathy and supple Lymph Lymphatic: no lymphadenopathy noted and no lymphedema noted Resp normal respiratory effort, normal air movement and clear to auscultation bilaterally Cardio regular rate, regular rhythm, S1 normal heart sound, S2 normal heart sound and no murmurs GI normal to inspection, nondistended, normoactive bowel sounds, soft to palpation and non-tender Extremity normal capillary refill, no clubbing, cyanosis or edema and no calf tenderness General Extremity: no tenderness to palpation of joints or extremities Skin General Skin Exam: no breakdown Neuro CN's II-XII intact bilaterally, no focal motor deficits, no sensory deficits noted and deep tendon reflexes 2+ bilaterally Motor Exam: strength 5/5 throughout and general weakness Psych thought process normal and cooperative Appearance: appropriate Assessment & Plan Assessment/Plan (1) Acute lower GI bleeding: PLAN: Acute lower GI bleeding secondary to diverticular bleeding status post endoscopic treatment. Patient is doing well has not seen any signs or symptoms of GI bleeding. If his hemoglobin continues to improve he should be able to be discharged to home tomorrow. Charges/Coding Visit Charges Inpatient E&M: 12675 Subs Hosp L3 02/11/24 1716 <Electronically signed by Portillo Friend DO> Cosigner Signature (if applicable): CC: ~ Signed [facility] Work Phone: 1(679) 627-665803-22-2024 Progress note Author Masha Dominguez [facility] February 11, 2024 3:40pm Note Date/Time February 11, 2024 12: 36pm [facility] Medical Records Department [address] [place] [address] Progress Note 02/11/24 1230 MR#: [id number] Acct: [id number] Name: KERWIN ALVARADO Rep #:[id number] : 1940 83 From: Masha Dominguez MD PCP: Dr. Radha Merino MD Status:ADM IN Location: [place] [address] Subjective Subjective Patient seen and examined. He feels well and has no active complaints. Review of systems otherwise negative. He had colonoscopy yesterday which showed extensive diverticulosis. There was active bleeding as well which was treated with heater probe. Objective Data Objective Data Vital Signs: Vital Signs Temp Pulse Resp BP Pulse Ox O2 Del Method 97.9 F 70 18 127/64 H 98 Room Air 02/11/24 08:51 02/11/24 08:51 02/11/24 08:51 02/11/24 08:51 02/11/24 08:51 02/11/24 08:51 Oxygen Delivery Method Room Air Weight: 213 lb 2.992 oz Body Mass Index (BMI) 31.4 Intake & Output: Intake and Output for Last 24 Hours 02/09/24 02/10/24 02/11/24 23:59 23:59 23:59 Intake Total 4910 / 4910 3433.25 / 3433.25 1210 / 1210 Output Total 600 / 600 750 / 750 480 / 480 Balance 4310 / 4310 2683.25 / 2683.25 730 / 730 Lab / Micro Data 02/11/24 05:50 02/11/24 05:50 Labs: Laboratory Results - last 24 hr 02/08/24 11:35: Crossmatch See Detail 02/08/24 11:35: Crossmatch See Detail 02/10/24 15:00: Hgb 5.9 L*, Hct 18.1 L, Diff Path Review March02/10/24 22:30: Hgb 8.6 L, Hct 26.4 L 02/11/24 05:50: WBC 10.0, RBC 2.57 L, Hgb 8.2 L, Hct 24.3 L, MCV 94.6 H D, MCH 31.9, MCHC 33.7, RDW Std Deviation 62.6 H, RDW Coeff of Lorin 19.2 H, Plt Count 144 L, MPV 9.4, Immature Gran % (Auto) 0.300, Neut % (Auto) 74.5 H, Lymph % (Auto) 12.2 L, [place] % (Auto) 8.5, Eos % (Auto) 4.1, Baso % (Auto) 0.4, Absolute Neuts (auto) 7.4, Absolute Lymphs (auto) 1.22, Nucleated RBC % 0, Sodium 143, Potassium 3.8, Chloride 116 H, Carbon Dioxide 23.0, Anion Gap 4 L, BUN 13, Creatinine 0.83, Estim Creat Clear Calc 80.07, Est GFR (MDRD) Af Amer 114, Est GFR (MDRD) Non-Af 94, BUN/Creatinine Ratio 15.6, Glucose 99, Calcium 7.5 L Micro: Microbiology 02/10/24 03:20 Stool C. difficile GDH Antigen & Toxins - Final 02/10/24 03:20 Stool Clostridioides difficile (PCR) - Final 02/10/24 03:20 Stool Enteric Bacteriology - Final 02/08/24 10:20 Stool Stool Occult Blood (JAYE) - Final Occult Blood Positive Physical Exam Const alert, oriented x3 and no apparent distress General Appearance: cooperative HEENT normocephalic, head/scalp atraumatic, moist oral mucous membranes and oropharynxnormal Eyes PERRL and EOMs intact bilaterally Neck no lymphadenopathy and supple Lymph Lymphatic: no lymphadenopathy noted and no lymphedema noted Resp normal respiratory effort, normal air movement and clear to auscultation bilaterally Cardio regular rate, regular rhythm, S1 normal heart sound, S2 normal heart sound and no murmurs GI normal to inspection, nondistended, normoactive bowel sounds, soft to palpation and non-tender Extremity normal capillary refill, no clubbing, cyanosis or edema and no calf tenderness General Extremity: no tenderness to palpation of joints or extremities Skin General Skin Exam: no breakdown Neuro CN's II-XII intact bilaterally, no focal motor deficits, no sensory deficits noted and deep tendon reflexes 2+ bilaterally Motor Exam: strength 5/5 throughout and general weakness Psych thought process normal and cooperative Appearance: appropriate Assessment & Plan Assessment/Plan (1) Acute lower GI bleeding: (2) Orthostatic hypotension: (3) Anemia: PLAN: Plan #Acute anemia due to lower GI bleed * S/p transfusion of 5 units of packed red blood cells since admission * Hemoglobin today is around 8. * CT abdomen and pelvis showed evidence of sigmoid diverticulosis. Colonoscopy showed extensive diverticulosis in the rectosigmoid, sigmoid and descending colon as well as the splenic flexure with blood in the entire examined colon. There was severe diverticulosis in the sigmoid colon with active bleeding coming from the diverticular opening and this was injected and treated with heater probe clips were placed. * Hb today is 8.2 today * Receiving IV iron today. * #Orthostatic hypotension: Likely due to GI bleed. Was hydrated with IV fluids. 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 On gabapentin. #Hyperlipidemia: On statin Hypertension: On valsartan-hydrochlorothiazide. #Nonalcoholic steatohepatitis: On ursodiol DVT prophylaxis: SCDs. CODE STATUS: Full code DIsposition: anticipate dc home tomorrow if he doesnt bleed again. * Charges/Coding Visit Charges Inpatient E&M: 24158 Subs Hosp L2 02/11/24 1540 <Electronically signed by Masha Dominguez MD> Masha Dominguez MD Cosigner Signature (if applicable): CC: ~ Signed [facility] Work Phone: 1(942) 477-535203-21-2024 Progress note Author Masha [facility] February 10, 2024 4:02pm Note Date/Time February 10, 2024 10: 50am [facility] Medical Records Department [address] [place] [address] Progress Note 02/10/24 1048 MR#: [id number] Acct: [id number] Name: KERWIN ALVARADO Rep #:[id number] : 1940 83 From: Masha Dominguez MD PCP: Dr. Radha Merino MD Status:ADM IN Location: [place] [address] Subjective Subjective Patient seen and examined. He had multiple episodes of rectal bleeding overnight. He has no other complaints. Review of systems is otherwise negative. Objective Data Objective Data Vital Signs: Vital Signs Temp Pulse Resp BP Pulse Ox O2 Del Method 98.1 F 82 18 125/57 H 99 Room Air 02/10/24 10:10 02/10/24 10:10 02/10/24 10:10 02/10/24 10:10 02/10/24 10:10 02/10/24 10:10 Oxygen Delivery Method Room Air Weight: 213 lb 2.992 oz Body Mass Index (BMI) 31.4 Intake & Output: Intake and Output for Last 24 Hours 02/08/24 02/09/24 02/10/24 23:59 23:59 23:59 Intake Total 2794.5 / 2794.5 4910 / 4910 1783.5 / 1783.5 Output Total 600 / 600 200 / 200 Balance 2794.5 / 2794.5 4310 / 4310 1583.5 / 1583.5 Lab / Micro Data 02/10/24 04:03 02/10/24 04:03 Labs: Laboratory Results - last 24 hr 02/08/24 11:35: Crossmatch See Detail 02/09/24 19:22: Hgb 7.8 L, Hct 23.7 L 02/10/24 04:03: WBC 7.9, RBC 2.02 L, Hgb 6.7 L, Hct 20.4 L, MCV 101.0 H, MCH 33.2 H, MCHC 32.8, RDW Std Deviation 64.4 H, RDW Coeff of Lorin 17.9 H, Plt Count 169, MPV 9.5, Immature Gran % (Auto) 0.500, Neut % (Auto) 69.0, Lymph % (Auto) 17.2 L, [place] % (Auto) 9.6, Eos % (Auto) 2.8, Baso % (Auto) 0.9, Absolute Neuts (auto) 5.5, Absolute Lymphs (auto) 1.36, Nucleated RBC % 0, Sodium 143, Potassium 4.0, Chloride 115 H, Carbon Dioxide 23.0, Anion Gap 5, BUN 18, Creatinine 0.89, Estim Creat Clear Calc 74.67, Est GFR (MDRD) Af Amer 105, Est GFR (MDRD) Non-Af 87, BUN/Creatinine Ratio 20.2 H, Glucose 125 H, Calcium 7.4 L Micro: Microbiology 02/10/24 03:20 Stool Enteric Bacteriology - Final 02/10/24 03:20 Stool Clostridioides difficile (PCR) - Final 02/08/24 10:20 Stool Stool Occult Blood (JAYE) - Final Occult Blood Positive Physical Exam Const alert, oriented x3 and no apparent distress Constitutional Narrative: looks very pale General Appearance: cooperative HEENT normocephalic, head/scalp atraumatic, moist oral mucous membranes and oropharynxnormal Eyes PERRL and EOMs intact bilaterally Neck no lymphadenopathy and supple Lymph Lymphatic: no lymphadenopathy noted and no lymphedema noted Resp normal respiratory effort, normal air movement and clear to auscultation bilaterally Cardio regular rate, regular rhythm, S1 normal heart sound, S2 normal heart sound and no murmurs GI normal to inspection, nondistended, normoactive bowel sounds, soft to palpation and non-tender Extremity normal capillary refill, no clubbing, cyanosis or edema and no calf tenderness General Extremity: no tenderness to palpation of joints or extremities Skin General Skin Exam: no breakdown Neuro CN's II-XII intact bilaterally, no focal motor deficits, no sensory deficits noted and deep tendon reflexes 2+ bilaterally Motor Exam: strength 5/5 throughout and general weakness Psych thought process normal and cooperative Appearance: appropriate Assessment & Plan Assessment/Plan (1) Acute lower GI bleeding: (2) Orthostatic hypotension: (3) Anemia: PLAN: Plan #Acute anemia due to lower GI bleed * Hb today is 6.7. Hemoglobin was 8.1 on admission, but dropped to 6.6 on admission. Was transfused with 2 units of PRBCs. * Hemoglobin last year was around 13. * Hydrate patient aggressively with IV fluids at 150cc/hr. Orthostatics were positive. * GI on on board. Await rec's. * Lower GI bleed mediated to diverticular bleed in light of patient having history of diverticulosis. CT of the abdomen and pelvis showed evidence of sigmoid diverticulosis * will transfuse 2 more units of PRBCs today * for colonoscopy by GI today. * #Orthostatic hypotension: Likely due to GI bleed. Being hydrated with IV fluids. 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 On gabapentin. #Hyperlipidemia: On statin. Hold all p.o. meds. Hypertension: On valsartan-hydrochlorothiazide. Will hold in light of lower GI bleed. IV hydralazine as needed #Nonalcoholic steatohepatitis: On ursodiol DVT prophylaxis: SCDs. CODE STATUS: Full code * Charges/Coding Visit Charges Inpatient E&M: 45244 Subs Hosp L3 02/10/24 1602 <Electronically signed by Masha Dominguez MD> Masha Dominguez MD Cosigner Signature (if applicable): CC: ~ Signed [facility] Work Phone: 1(486) 473-234203-21-[address] [facility] 02-10-[address] [facility]03-21-2024 Procedure note [facility]03-21-[address] [facility] 02-10-2024 Progress note Author [facility] February 10, 2024 6:30am Note Date/Time February 10, 2024 6:3 0am [facility] Medical Records Department [address] [place] [address] Progress Note - Hospitalist 02/10/24524 MR#: [id number] Acct: [id number] Name: KERWIN ALVARADO Rep #:[id number] : 1940 83 From: Chelle Alcala MD PCP: Dr. Radha Merino MD Status:ADM IN Location: [place] [address] Hospitalist Note Repeat Hgb 6.7, will give additional 1 u pRBC and repeat HH 1 hour following completion. 02/10/24 0630 <Electronically signed by Chelle Alcala MD> Cosigner Signature (if applicable): CC: ~ Signed [facility] Work Phone: 1(654) 463-183703-20-2024 Progress note Author Masha [facility] February 09, 2024 4:28pm Note Date/Time February 09, 2024 1:0 3pm [facility] Medical Records Department [address] [facility] [place] [address] Progress Note 02/09/24 1255 MR#: [id number] Acct: [id number] Name: KERWIN ALVARADO Rep #:[id number] : 1940 83 From: Masha Dominguez MD PCP: Dr. Radha Merino MD Status:ADM IN Location: [place] [address] Subjective Subjective Patient seen and examined. He had no complaints. He had no active events overnight. Review of systems is otherwise negative. He was transfused with 2 units of PRBCs. Hb dropped to 6.6 yesterday. Hb today is 7.3.GI is on board and he is awaiting EGD. Objective Data Objective Data Vital Signs: Vital Signs Temp Pulse Resp BP Pulse Ox O2 Del Method 98.9 F 85 16 129/50 H 96 Room Air 02/09/24 04:46 02/09/24 04:46 02/09/24 04:46 02/09/24 04:46 02/09/24 04:46 02/09/24 08:00 Oxygen Delivery Method Room Air Weight: 213 lb 2.992 oz Body Mass Index (BMI) 31.4 Intake & Output: Intake and Output for Last 24 Hours 02/07/24 02/08/24 02/09/24 23:59 23:59 23:59 Intake Total 2794.5 / 2794.5 2000 / 1999 Output Total 600 / 600 Balance 2794.5 / 2794.5 1400 / 1400 Lab / Micro Data 02/09/24 05:50 02/09/24 05:50 Labs: Laboratory Results - last 24 hr 02/08/24 10:20: PT 14.4, INR 1.1, Iron 52 L, TIBC 320, Iron Saturation 16.2, Ferritin 48 02/08/24 11:35: Crossmatch See Detail 02/08/24 14:45: Hgb 6.6 L, Hct 20.6 L, Lactic Acid 3.3 H* 02/09/24 00:44: Hgb 7.8 L, Hct 23.2 L 02/09/24 05:50: WBC 7.8, RBC 2.15 L, Hgb 7.3 L, Hct 21.6 L, MCV 100.5 H D, MCH 34.0 H, MCHC 33.8, RDW Std Deviation 64.4 H, RDW Coeff of Lorin 17.9 H, Plt Count 193, MPV 10.2, Immature Gran % (Auto) 0.400, Neut % (Auto) 68.0, Lymph % (Auto) 17.6 L, [place] % (Auto) 10.3 H, Eos % (Auto) 3.1, Baso % (Auto) 0.6, Absolute Neuts (auto) 5.3, Absolute Lymphs (auto) 1.37, Nucleated RBC % 0, PT 15.2 H, INR1.2, APTT 29.6, Sodium 141, Potassium 3.9, Chloride 113 H, Carbon Dioxide 21.0, Anion Gap 7, BUN 24 H, Creatinine 1.02, Estim Creat Clear Calc 65.15, Est GFR (MDRD) Af Amer 90, Est GFR (MDRD) Non-Af 74, BUN/Creatinine Ratio 23.5 H, Glucose 89, Calcium 7.7 L Micro: Microbiology 02/08/24 10:20 Stool Stool Occult Blood (JAYE) - Final Occult Blood Positive Physical Exam Const alert, oriented x3 and no apparent distress General Appearance: cooperative HEENT normocephalic, head/scalp atraumatic, moist oral mucous membranes and oropharynxnormal Eyes PERRL and EOMs intact bilaterally Neck no lymphadenopathy and supple Lymph Lymphatic: no lymphadenopathy noted and no lymphedema noted Resp normal respiratory effort, normal air movement and clear to auscultation bilaterally Cardio regular rate, regular rhythm, S1 normal heart sound, S2 normal heart sound and no murmurs GI normal to inspection, nondistended, normoactive bowel sounds, soft to palpation and non-tender Extremity normal capillary refill, no clubbing, cyanosis or edema and no calf tenderness General Extremity: no tenderness to palpation of joints or extremities Skin General Skin Exam: no breakdown Neuro CN's II-XII intact bilaterally, no focal motor deficits, no sensory deficits noted and deep tendon reflexes 2+ bilaterally Motor Exam: strength 5/5 throughout and general weakness Psych thought process normal and cooperative Appearance: appropriate Assessment & Plan Assessment/Plan (1) Acute lower GI bleeding: (2) Orthostatic hypotension: (3) Anemia: PLAN: Plan #Acute anemia due to lower GI bleed * Hb today is 7.3. Hemoglobin was 8.1 on admission, but dropped to 6.6 on admission. Was transfused with 2 units of PRBCs. * Hemoglobin last year was around 13. * Hydrate patient aggressively with IV fluids at 150cc/hr. Orthostatics were positive. * GI on on board. Await rec's. * Lower GI bleed mediated to diverticular bleed in light of patient having history of diverticulosis. CT of the abdomen and pelvis showed evidence of sigmoid diverticulosis * #Orthostatic hypotension: Likely due to GI bleed. Being hydrated with IV fluids. 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 On gabapentin. #Hyperlipidemia: On statin. Hold all p.o. meds. Hypertension: On valsartan-hydrochlorothiazide. Will hold in light of lower GI bleed. IV hydralazine as needed #Nonalcoholic steatohepatitis: On ursodiol DVT prophylaxis: SCDs. CODE STATUS: Full code * Charges/Coding Visit Charges Inpatient E&M: 69623 Subs Hosp L2 02/09/24 1281 <Electronically signed by Masha Dominguez MD> Masha Dominguez MD Cosigner Signature (if applicable): CC: ~ Signed [facility] Work Phone: 1([phone]) 209-195603-19-2024 Consult note Author Portillo Buck [facility] February 08, 2024 7:16pm Note Date/Time February 08, 2024 7:0 9pm [facility] Medical Records Department [address] [place] [address] Consultation - GI 02/08/24 1908 MR#: [id number] Acct: [id number] Name: KERWIN ALVARADO Rep #:[id number] : 1940 83 From: Portillo Buck DO PCP: Dr. Radha Merino MD Status:ADM IN Location: [place] [address] HPI Consult Data Date of Consult: 02/08/24 HPI Narrative Reason for Consultation: GI bleed HPI Narrative: KERWIN ALVARADO, is a 83 M who presents to the emergency department complaint generalized weakness and near syncope. Patient states that he was sitting having coffee and when he tried to stand he felt very lightheaded and felt like he was going to pass out. He sat back down. Patient also states that he has been ill for about a week with diarrhea. Today he noticed some blood on the toilet paper when he wiped. Patient states he is not putting out much stool when he is having stools it is some water and just small amount of loose stool. He denies fevers or chills or sweats. Denies vomiting. Denies chest pain. He has had some mild increasing shortness of breath over the last several months. 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 He also has a history of chronic anemia, gout, neuropathy and hypertension. He was sent to the PCU due to hypotension and positive orthostatics. Currently his blood pressure is 74/60 with a heart rate of 80. 02/08/24 10:20: WBC 7.1, RBC 2.34 L, Hgb 8.1 L, Hct 25.1 L, MCV 107.3 H, MCH 34.6 H, MCHC 32.3, RDW Std Deviation 53.9 H, RDW Coeff of Lorin 14.2, Plt Count 259, MPV 10.5, Immature Gran % (Auto) 0.600, Neut % (Auto) 64.2, Lymph % (Auto) 21.2, [place] % (Auto) 8.4, Eos % (Auto) 4.5, Baso % (Auto) 1.1 H, Absolute Neuts (auto) 4.6, Absolute Lymphs (auto) 1.51, Nucleated RBC % 0, PT 14.4, INR 1.1, Sodium 136, Potassium 4.1, Chloride 105, Carbon Dioxide 24.0, Anion Gap 7, BUN 25 H, Creatinine 1.23, Estim Creat Clear Calc 54.03, Est GFR (MDRD) Af Amer 73, Est GFR (MDRD) Non-Af 60, BUN/Creatinine Ratio 20.3 H, Glucose 193 H, Lactic Acid 2.3 H*, Calcium 8.5, Iron 52 L, TIBC 320, Iron Saturation 16.2, Ferritin 48, Total Bilirubin 0.50, AST 18, ALT 19, Alkaline Phosphatase 100, Troponin I High Sens 3, Total Protein 6.7, Albumin 3.4, Globulin 3.3, Albumin/Globulin Ratio 1.0 02/08/24 11:35: Blood Type A POSITIVE, Antibody Screen NEGATIVE, Crossmatch See Detail 02/08/24 14:45: Hgb 6.6 L, Hct 20.6 L, Lactic Acid 3.3 H He had a CT scan abdomen pelvis that displayed: Stable 9 mm calculus in the right renal pelvis. Heterogeneous enlargement of the prostate with calcification. Small left adrenal adenoma. Fatty infiltration of the liver. Sigmoid diverticulosis. He is not bleeding at this time. [facility] Medical History Diastasis recti Essential hypertension Hyperlipidemia Low back pain without sciatica Obesity Spinal stenosis at L4-L5 level Home Medications cyanocobalamin (vitamin B-12) 1,000 mcg tablet (Vitamin B-12) 1,000 mcg PO QDAY 06/08/18 [History Last Taken 02/07/24] multivitamin 1 tab PO QDAY 06/08/18 [History Last Taken 02/07/24] omeprazole 20 mg capsule,delayed release 20 mg PO QDAY 06/08/18 [History Last Taken 02/07/24] simvastatin 40 mg tablet 40 mg PO QPM 06/08/18 [History Last Taken 02/07/24] valsartan 320 mg-hydrochlorothiazide 25 mg tablet (Diovan HCT) 1 tab PO QDAY 06/08/18 [History Last Taken 02/07/24] allopurinol 100 mg tablet 100 mg PO BID 06/13/18 [History Last Taken 02/07/24] aspirin 81 mg tablet,delayed release (Adult Aspirin Regimen) 81 mg PO DAILY 03/09/19 [History Last Taken 02/07/24] omega-3 acid ethyl esters 1 gram capsule (Lovaza) 1 cap PO BID 09/11/19 [History Last Taken 02/07/24] vit C 250 mg-vit E 90 mg-zinc 40 mg-copper 1 [id number] capsule (PreserVision AREDS-2) 2 tab PO DAILY 09/23/20 [History Last Taken 02/07/24] sildenafil (pulm.hypertension) 20 mg tablet 20 mg PO Q24H PRN sexual activity 09/29/21 [History Last Taken Unknown] ursodiol 300 mg capsule 300 mg PO BID #60 caps 03/25/23 [Rx Last Taken 02/07/24] diclofenac sodium 75 mg tablet,delayed release 75 mg PO BID PRN pain #180 tabs 09/23/23 [Rx Last Taken Unknown] amitriptyline 25 mg tablet 25 mg PO QHS PRN sleep 02/08/24 [History Last Taken 02/07/24] potassium citrate 10 mEq (1,080 mg) tablet,extended release 10 meq PO TID 02/08/24 [History Last Taken 02/07/24] Allergy/AdvReac Type Severity Reaction Status Date / Time No Known Allergies Allergy Verified 02/08/24 10:05 Family History Father Dementia Mother Atrial fibrillation Surgical History History of cystoscopy (02/2008) History of tonsillectomy and adenoidectomy Social History Smoking Status: Never smoker second hand exposure: No alcohol intake: current alcohol intake frequency: a few times a week Alcohol type: wine substance use type: does not use caffeine: Yes Type: coffee Number of servings: 3 what type of physical activity do you participate in: none maria fernanda/buddhism: Muslim seatbelt use: always ROS Review of Systems ROS Unobtainable: Denies due to encephalopathy Constitutional Constitutional: Reports fatigue, malaise and weakness; Denies anorexia, chills or fever(s) Eyes Eyes: Denies change in vision ENT HEENT: Denies dysphagia Cardiovascular Cardiovascular: Reports chest pain, claudication, palpitations, paroxysmal nocturnal dyspnea and syncope Respiratory/Chest Respiratory/Chest: Reports cough, shortness of breath at rest and shortness of breath with exertion Physical Exam Const alert, oriented x3 and no apparent distress General Appearance: cooperative HEENT normocephalic, head/scalp atraumatic and oropharynx normal Mouth: dry mucous membranes Eyes PERRL and EOMs intact bilaterally Neck no lymphadenopathy and supple Lymph Lymphatic: no lymphadenopathy noted and no lymphedema noted Resp normal respiratory effort, normal air movement and clear to auscultation bilaterally Cardio regular rate, regular rhythm, S1 normal heart sound, S2 normal heart sound and no murmurs GI normal to inspection, nondistended, normoactive bowel sounds, soft to palpation and non-tender Extremity normal capillary refill, no clubbing, cyanosis or edema and no calf tenderness General Extremity: no tenderness to palpation of joints or extremities Skin General Skin Exam: no breakdown Neuro CN's II-XII intact bilaterally, no focal motor deficits, no sensory deficits noted and deep tendon reflexes 2+ bilaterally Motor Exam: strength 5/5 throughout and general weakness Psych thought process normal and cooperative Appearance: appropriate Lab / Micro Data 02/08/24 14:45 02/08/24 10:20 Labs: Laboratory Results - last 24 hr 02/08/24 10:20: WBC 7.1, RBC 2.34 L, Hgb 8.1 L, Hct 25.1 L, MCV 107.3 H, MCH 34.6 H, MCHC 32.3, RDW Std Deviation 53.9 H, RDW Coeff of Lorin 14.2, Plt Count 259, MPV 10.5, Immature Gran % (Auto) 0.600, Neut % (Auto) 64.2, Lymph % (Auto) 21.2, [place] % (Auto) 8.4, Eos % (Auto) 4.5, Baso % (Auto) 1.1 H, Absolute Neuts (auto) 4.6, Absolute Lymphs (auto) 1.51, Nucleated RBC % 0, PT 14.4, INR 1.1, Sodium 136, Potassium 4.1, Chloride 105, Carbon Dioxide 24.0, Anion Gap 7, BUN 25 H, Creatinine 1.23, Estim Creat Clear Calc 54.03, Est GFR (MDRD) Af Amer 73, Est GFR (MDRD) Non-Af 60, BUN/Creatinine Ratio 20.3 H, Glucose 193 H, Lactic Acid 2.3 H*, Calcium 8.5, Iron 52 L, TIBC 320, Iron Saturation 16.2, Ferritin 48, Total Bilirubin 0.50, AST 18, ALT 19, Alkaline Phosphatase 100, Troponin I High Sens 3, Total Protein 6.7, Albumin 3.4, Globulin 3.3, Albumin/Globulin Ratio 1.0 02/08/24 11:35: Blood Type A POSITIVE, Antibody Screen NEGATIVE, Crossmatch See Detail 02/08/24 14:45: Hgb 6.6 L, Hct 20.6 L, Lactic Acid 3.3 H* Micro: Microbiology 02/08/24 10:20 Stool Stool Occult Blood (JAYE) - Final Occult Blood Positive Imaging Radiology Impression Abdomen/Pelvis CT 02/08/24 10:18 IMPRESSION: Stable 9 mm calculus in the right renal pelvis. Heterogeneous enlargement of the prostate with calcification. Small left adrenal adenoma. Fatty infiltration of the liver. Sigmoid diverticulosis. Electronically Signed: Yomi Bosch MD at 11:40 EDT , Assessment & Plan Assessment/Plan (1) Acute lower GI bleeding: PLAN: Differential diagnosis for lower GI bleed would include diverticular bleed, upper GI bleed rapid transit, hemorrhoidal bleeding, solitary rectal ulcer due to history of constipation, angiodysplasia. He should undergo an EGD and colonoscopy. At this time anesthesia does not want to sedate him because his blood pressure is low. Recommend transfused 3 units of packed red blood cells. Patient got a CT scan abdomen pelvis so he cannot get a CT angiography today. If he continues to bleed then he will need a bleeding scan. Reassess once patient's blood pressure is a little bit more stable so he can be sedated for procedure. Charges/Coding Visit Charges Inpatient E&M: 59100 Init Hosp L3 02/08/241915 <Electronically signed by Portillo Friend DO> Cosigner Signature (if applicable): CC: Dr. Radha Merino MD~ Signed [facility] Work Phone: [phone]) 656-235403-19-2024 History and physical note Author Masha [facility] February 08, 2024 3:57pm Note Date/Time February 08, 2024 12: 16pm [facility] Medical Records Department [address] [place] [address] History & Physical Exam 02/08/24 1211 MR#: [id number] Acct: [id number] Name: KERWIN ALVARADO Rep #:[id number] : 1940 83 From: Masha Dominguez MD PCP: Dr. Radha Merino MD Status:ADM IN Location: [facility] [id number] HPI - General General Date of Admission: 02/08/24 Date of Service: 02/08/24 Chief Complaint: dizziness, lightheadedness HPI Narrative KERWIN ALVARADO, is a 83 M who presents via the ED on 02/08/2024 with a complaint oflightheaded and dizzy. He was having some coffee and says he tried to stand up and felt dizzy and lightheadedness. He has had diarrhea for about a week and noticed blood when he wiped himself today. His diarrhea has started improving. He denied any abdominal pain, chest pain, nausea or vomiting or any other symptoms. Review of systems is otherwise negative. Patient admits to a 5 to 7 pound weight loss over the last month but says this has been intentional as he was recently diagnosed with fatty liver disease and so is trying to lose weight. He has been on the [employer] diet for this. He does have a history of diverticulosis. Vitals in the ED were BP of 114/89, AK of 93, RR of 16 and oxygen sats of 98% onroom air. CBC showed WBC of 7.1 with Hb of 8.1, wbc of 7.1 and platelets of 259. Chemistry showed lactic acid of 2.3 and creatinine of 1.23 as well as sodium of 136. CT of the abdomen and pelvis showed a stable 9 mm calculus in the right renal pelvis with heterogeneous enlargement of the prostate with calcification and small left adrenal adenoma with fatty infiltration of the liver and sigmoid diverticulosis. Stool for occult blood done was positive though rectal exam also showed that there was layne blood. Orthostatics checkedwere positive. He has been admitted to be managed for dizziness due to positiveorthostatic hypotension in the setting of rectal bleeding. [facility] Medical History Diastasis recti Essential hypertension Hyperlipidemia Low back pain without sciatica Obesity Spinal stenosis at L4-L5 level Home Medications cyanocobalamin (vitamin B-12) 1,000 mcg tablet (Vitamin B-12) 1,000 mcg PO QDAY 06/08/18 [History Last Taken 02/07/24] multivitamin 1 tab PO QDAY 06/08/18 [History Last Taken 02/07/24] omeprazole 20 mg capsule,delayed release 20 mg PO QDAY 06/08/18 [History Last Taken 02/07/24] simvastatin 40 mg tablet 40 mg PO QPM 06/08/18 [History Last Taken 02/07/24] valsartan 320 mg-hydrochlorothiazide 25 mg tablet (Diovan HCT) 1 tab PO QDAY 06/08/18 [History Last Taken 02/07/24] allopurinol 100 mg tablet 100 mg PO BID 06/13/18 [History Last Taken 02/07/24] aspirin 81 mg tablet,delayed release (Adult Aspirin Regimen) 81 mg PO DAILY 03/09/19 [History Last Taken 02/07/24] omega-3 acid ethyl esters 1 gram capsule (Lovaza) 1 cap PO BID 09/11/19 [History Last Taken 02/07/24] vit C 250 mg-vit E 90 mg-zinc 40 mg-copper 1 [id number] capsule (PreserVision AREDS-2) 2 tab PO DAILY 09/23/20 [History Last Taken 02/07/24] sildenafil (pulm.hypertension) 20 mg tablet 20 mg PO Q24H PRN sexual activity 09/29/21 [History Last Taken Unknown] ursodiol 300 mg capsule 300 mg PO BID #60 caps 03/25/23 [Rx Last Taken 02/07/24] diclofenac sodium 75 mg tablet,delayed release 75 mg PO BID PRN pain #180 tabs 09/23/23 [Rx Last Taken Unknown] amitriptyline 25 mg tablet 25 mg PO QHS PRN sleep 02/08/24 [History Last Taken 02/07/24] potassium citrate 10 mEq (1,080 mg) tablet,extended release 10 meq PO TID 02/08/24 [History Last Taken 02/07/24] Allergy/AdvReac Type Severity Reaction Status Date / Time No Known Allergies Allergy Verified 02/08/24 10:05 Family History Father Dementia Mother Atrial fibrillation Surgical History History of cystoscopy (02/2008) History of tonsillectomy and adenoidectomy Social History Smoking Status: Never smoker second hand exposure: No alcohol intake: current alcohol intake frequency: a few times a week Alcohol type: wine substance use type: does not use caffeine: Yes Type: coffee Number of servings: 3 what type of physical activity do you participate in: none maria fernanda/buddhism: Muslim seatbelt use: always ROS Review of Systems ROS Unobtainable: Denies due to encephalopathy Constitutional Constitutional: Reports fatigue, malaise and weakness; Denies anorexia, chills or fever(s) Eyes Eyes: Denies change in vision ENT HEENT: Denies dysphagia Cardiovascular Cardiovascular: Reports chest pain, claudication, palpitations, paroxysmal nocturnal dyspnea and syncope Respiratory/Chest Respiratory/Chest: Reports cough, shortness of breath at rest and shortness of breath with exertion Vital Signs Vital Signs Vital Signs: 02/08/24 10:04 02/08/24 10:10 02/08/24 10:32 Temperature 97.6 F L Temperature Source Oral Pulse Rate 85 Pulse Rate [Lying] 71 Pulse Rate [Sitting (for 1 minute prior to obtaining)] 81 Pulse Rate [Standing (for 1 minute prior to obtaining)] 86 Respiratory Rate 11 L Respiratory Effort Normal Non-Labored Respiratory Pattern Normal Blood Pressure 175/65 H Blood Pressure [Lying] 132/72 H Blood Pressure [Sitting (for 1 minute prior to obtaining)] 116/70 Blood Pressure [Standing (for 1 minute prior to obtaining)] 90/56 L Blood Pressure Mean 101 Blood Pressure Mean [Lying] 92 Blood Pressure Mean [Sitting (for 1 minute prior to obtaining)] 85 Blood Pressure Mean [Standing (for 1 minute prior to obtaining)] 67 Pulse Ox 94 Oxygen Delivery Method Room Air 02/08/24 12:04 Temperature Temperature Source Pulse Rate 93 Pulse Rate [Lying] Pulse Rate [Sitting (for 1 minute prior to obtaining)] Pulse Rate [Standing (for 1 minute prior to obtaining)] Respiratory Rate 16 Respiratory Effort Respiratory Pattern Blood Pressure 114/89 H Blood Pressure [Lying] Blood Pressure [Sitting (for 1 minute prior to obtaining)] Blood Pressure [Standing (for 1 minute prior to obtaining)] Blood Pressure Mean 97 Blood Pressure Mean [Lying] Blood Pressure Mean [Sitting (for 1 minute prior to obtaining)] Blood Pressure Mean [Standing (for 1 minute prior to obtaining)] Pulse Ox 98 Oxygen Delivery Method Room Air Weight Weight: 213 lb 2.992 oz Body Mass Index (BMI) 31.4 Physical Exam Const alert, oriented x3 and no apparent distress General Appearance: cooperative HEENT normocephalic, head/scalp atraumatic and oropharynx normal Mouth: dry mucous membranes Eyes PERRL and EOMs intact bilaterally Neck no lymphadenopathy and supple Lymph Lymphatic: no lymphadenopathy noted and no lymphedema noted Resp normal respiratory effort, normal air movement and clear to auscultation bilaterally Cardio regular rate, regular rhythm, S1 normal heart sound, S2 normal heart sound and no murmurs GI normal to inspection, nondistended, normoactive bowel sounds, soft to palpation and non-tender Extremity normal capillary refill, no clubbing, cyanosis or edema and no calf tenderness General Extremity: no tenderness to palpation of joints or extremities Skin General Skin Exam: no breakdown Neuro CN's II-XII intact bilaterally, no focal motor deficits, no sensory deficits noted and deep tendon reflexes 2+ bilaterally Motor Exam: strength 5/5 throughout and general weakness Psych thought process normal and cooperative Appearance: appropriate Results Lab / Micro Data 02/08/24 14:45 02/08/24 10:20 Labs: Laboratory Results - last 24 hr 02/08/24 10:20: WBC 7.1, RBC 2.34 L, Hgb 8.1 L, Hct 25.1 L, MCV 107.3 H, MCH 34.6 H, MCHC 32.3, RDW Std Deviation 53.9 H, RDW Coeff of [place]in 14.2, Plt Count 259, MPV 10.5, Immature Gran % (Auto) 0.600, Neut % (Auto) 64.2, Lymph % (Auto) 21.2, [place] % (Auto) 8.4, Eos % (Auto) 4.5, Baso % (Auto) 1.1 H, Absolute Neuts (auto) 4.6, Absolute Lymphs (auto) 1.51, Nucleated RBC % 0, Sodium 136, Potassium 4.1, Chloride 105, Carbon Dioxide 24.0, Anion Gap 7, BUN 25 H, Creatinine 1.23, Estim Creat Clear Calc 54.03, Est GFR (MDRD) Af Amer 73, Est GFR (MDRD) Non-Af 60, BUN/Creatinine Ratio 20.3 H, Glucose 193 H, Lactic Acid 2.3 H*, Calcium 8.5, Total Bilirubin 0.50, AST 18, ALT 19, Alkaline Phosphatase 100, Troponin I High Sens 3, Total Protein 6.7, Albumin 3.4, Globulin 3.3, Albumin/Globulin Ratio 1.0 Micro: Microbiology 02/08/24 10:20 Stool Stool Occult Blood (JAYE) - Final Occult Blood Positive Imaging Radiology Impression Abdomen/Pelvis CT 02/08/24 10:18 IMPRESSION: Stable 9 mm calculus in the right renal pelvis. Heterogeneous enlargement of the prostate with calcification. Small left adrenal adenoma. Fatty infiltration of the liver. Sigmoid diverticulosis. Electronically Signed: Yomi Bosch MD at 11:40 EDT , Assessment & Plan Assessment/Plan (1) Acute lower GI bleeding: (2) Orthostatic hypotension: (3) Anemia: PLAN: Plan #Acute anemia due to lower GI bleed * Admit to [facility]; patient was initially admited to [facility] was transferred to PCU after he had an active bleed and Hb dropped to 6.6. Hemoglobin was 8.1 on admission * Hemoglobin last year was around 13. Of note: Patient got to the floor he had a large rectal bleed hemoglobin dropped to 6.6. * Hydrate patient aggressively with IV fluids at 150cc/hr. Orthostatics were positive. * Type and cross done. Will transfuse patient with 2 units of packed red blood cells. * Keep patient NPO. Gastroenterology consulted. * Lower GI bleed mediated to diverticular bleed in light of patient having history of diverticulosis. CT of the abdomen and pelvis showed evidence of sigmoid diverticulosis * #Orthostatic hypotension: Likely due to GI bleed. Being hydrated with IV fluids. 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 On gabapentin. #Hyperlipidemia: On statin. Hold all p.o. meds. Hypertension: On valsartan hydrochlorothiazide. Will hold in light of lower GI bleed. IV hydralazine as needed #Nonalcoholic steatohepatitis: On ursodiol DVT prophylaxis: SCDs. CODE STATUS: Full code * Patient counseled extensively about different types of CODE STATUS including full code, DNR CCA and DNR CCA. Patient elects to be full code. * Total mpmr-ea-knoy time 17 minutes. Charges/Coding Visit Charges Inpatient E&M: 72067 Init Hosp L3 Procedures Hospitalists Procedures: 47136 Advncd Care Plan 30 Min 03/19/24 1557 <Electronically signed by Masha Dominguez MD> Cosigner Signature (if applicable): CC: Dr. Masha Dominguez MD; Dr. Radha Merino MD~ Signed [facility] Work Phone: [phone] Discharge summary Author Shayne Elder [facility] February 08, 2024 3:56pm Note Date/Time February 08, 2024 10: 21am [facility] Medical Records Department [address] [place] [address] Emergency Department Summary 02/08/24 MR#: [id number] Acct: [id number] Name: KERWIN ALVARADO Rep #:[id number] : 1940 83 From: Shayne Elder DO PCP: Dr. Radha Merino MD Status:ADM IN Location: [place] [address] HPI History of Present Illness Chief Complaint: Weakness Detail of Chief Complaint: Generalized weakness and near syncope Informant: patient Narrative Narrative: Patient presents the emergency department complaint generalized weakness and near syncope. Patient states that he was sitting having coffee and when he tried to stand he felt very lightheaded and felt like he was going to pass out. He sat back down. Patient also states that he has been ill for about a week with diarrhea. Today he noticed some blood on the toilet paper when he wiped. Patient states he is not putting out much stool when he is having stools it is some water and just small amount of loose stool. He denies fevers or chills or sweats. Denies vomiting. Denies chest pain. He has had some mild increasing shortness of breath over the last several months. [facility] Medical History Diastasis recti Essential hypertension Hyperlipidemia Low back pain without sciatica Obesity Spinal stenosis at L4-L5 level Home Medications cyanocobalamin (vitamin B-12) 1,000 mcg tablet (Vitamin B-12) 1,000 mcg PO QDAY 06/08/18 [History Last Taken Unknown] multivitamin 1 tab PO QDAY 06/08/18 [History Last Taken Unknown] omeprazole 20 mg capsule,delayed release 20 mg PO QDAY 06/08/18 [History Last Taken Unknown] simvastatin 40 mg tablet 40 mg PO QPM 06/08/18 [History Last Taken Unknown] valsartan 320 mg-hydrochlorothiazide 25 mg tablet (Diovan HCT) 1 tab PO QDAY 06/08/18 [History Last Taken Unknown] allopurinol 100 mg tablet 200 mg PO QDAY 06/13/18 [History Last Taken Unknown] aspirin 81 mg tablet,delayed release (Adult Aspirin Regimen) 81 mg PO DAILY 03/09/19 [History Last Taken Unknown] omega-3 acid ethyl esters 1 gram capsule (Lovaza) 2 cap PO BID 09/11/19 [History Last Taken Unknown] vit C 250 mg-vit E 90 mg-zinc 40 mg-copper 1 [id number] capsule (PreserVision AREDS-2) 2 tab PO DAILY 09/23/20 [History Last Taken Unknown] sildenafil (pulm.hypertension) 20 mg tablet 20 mg PO Q24H PRN sexual activity 09/29/21 [History Last Taken Unknown] ursodiol 300 mg capsule 300 mg PO BID #60 caps 03/25/23 [Rx Last Taken Unknown] Bilateral wrist splints #2 ea 09/23/23 [Rx Last Taken Unknown] amitriptyline 25 mg tablet 25 mg PO QHS #90 tabs 09/23/23 [Rx Last Taken Unknown] diclofenac sodium 75 mg tablet,delayed release 75 mg PO BID PRN pain #180 tabs 09/23/23 [Rx Last Taken Unknown] Allergy/AdvReac Type Severity Reaction Status Date / Time No Known Allergies Allergy Verified 02/08/24 10:05 Family History Father Dementia Mother Atrial fibrillation Surgical History History of cystoscopy (02/2008) History of tonsillectomy and adenoidectomy Social History Smoking Status: Never smoker second hand exposure: No alcohol intake: current alcohol intake frequency: a few times a week Alcohol type: wine substance use type: does not use caffeine: Yes Type: coffee Number of servings: 3 what type of physical activity do you participate in: none maria fernanda/buddhism: Muslim seatbelt use: always ROS ROS ED Review of Systems ROS Unobtainable: other Constitutional Constitutional ED: Reports lethargy; Denies chills, fever(s), sweats or weight loss Eyes Eyes: Denies blurry vision, change in vision or diplopia ENT ENT ED: Denies rhinorrhea or sore throat Cardiovascular Cardiovascular: Denies chest pain, orthopnea or racing heartbeat Respiratory/Chest Respiratory/Chest: Denies cough, dyspnea, dyspnea on exertion, orthopnea or sputum Gastrointestinal Gastrointestinal: Reports diarrhea and other Details: Bright red blood in stool ; Denies abdominal pain, nausea or vomiting Genitourinary Genitourinary ED: Denies dysuria, hematuria or urinary frequency Musculoskeletal Musculoskeletal: Denies arthralgias, back pain, myalgias or neck pain Integumentary Denies abscess, Abrasions or rash Neurologic Neurologic: Denies headache(s) or weakness Psychiatric Psychiatric: Denies anxiety, depression or suicidal thoughts Endocrine Endocrinology: Denies polydipsia, polyphagia or polyuria Hematologic/Lymphatic Hematologic/Lymphatic: Denies easy bleeding, easy bruising or lymphadenopathy Allergic/Immunologic Allergic/Immunologic ED: Denies mouth swelling, tongue swelling or urticaria EXAM Physical Exam Const Vital Signs: 02/08/24 10:04 02/08/24 10:10 02/08/24 10:32 Temperature 97.6 F L Temperature Source Oral Pulse Rate 85 Pulse Rate [Lying] 71 Pulse Rate [Sitting (for 1 minute prior to obtaining)] 81 Pulse Rate [Standing (for 1 minute prior to obtaining)] 86 Respiratory Rate 11 L Respiratory Effort Normal Non-Labored Respiratory Pattern Normal Blood Pressure 175/65 H Blood Pressure [Lying] 132/72 H Blood Pressure [Sitting (for 1 minute prior to obtaining)] 116/70 Blood Pressure [Standing (for 1 minute prior to obtaining)] 90/56 L Blood Pressure Mean 101 Blood Pressure Mean [Lying] 92 Blood Pressure Mean [Sitting (for 1 minute prior to obtaining)] 85 Blood Pressure Mean [Standing (for 1 minute prior to obtaining)] 67 Pulse Ox 94 Oxygen Delivery Method Room Air Positive well nourished and well developed General Appearance ED: well developed and NAD HEENT Reports TM's clear and moist mucous membranes normocephalic and atraumatic; Negative for trauma or tenderness Tympanic Membrane ED: Yes TM's clear Eyes PERRL and EOMs intact bilaterally General Eye ED: Negative for pale conjunctiva or scleral icterus Neck no lymphadenopathy, supple and no JVD General: Negative for tenderness Chest Wall inspection of chest normal and palpation of chest normal Chest: Negative for tenderness Resp normal respiratory effort and clear to auscultation bilaterally Effort and Inspection: Negative for respiratory distress or pain with movement Auscultation: Negative for rhonchi, wheezes or diminished lung sounds Cardio regular rate, regular rhythm, S1 normal heart sound, S2 normal heart sound and no murmurs Peripheral Pulses: pulses 2+ throughout GI normal to inspection, nondistended, normoactive bowel sounds, soft to palpation,non-tender, non-distended and no masses GI Narrative: Rectal exam-no fissures or tears noted. No hemorrhoids. On digital rectal examthere were no masses in the rectal vault and stool was blood-tinged. Back/Spine no CVA tenderness and no thoracic nor lumbar tenderness Extremity normal to inspection General Extremety ED: Negative for edema General Extremity: Negative for edema Neuro oriented x3, CN's II-XII intact bilaterally, no sensory deficits noted and gait normal Sensorium / Orientation: awake, alert, oriented to person, oriented to place andoriented to time Motor Exam: strength 5/5 throughout and strength abnormal Psych mental status grossly normal Skin no rashes or lesions noted and no wounds MDM MDM MDM Narrative Medical decision making narrative: Patient presents with diarrhea and now rectal bleeding. Patient complaining feeling lightheaded and dizzy with standing. IV line will be established. Patient placed on media monitor. EKG obtained on arrival shows sinus rhythm with ventricular rate of 70 bpm with no acute ST segment changes. CBC with differential showed a white count of 7.1 with hemoglobin of 8.1. Last availablehemoglobin was 13 approximately 11 months ago. Stool for Hemoccult was sent andwas positive. BUN elevated 25 and creatinine 1.23. Chemistries otherwise unremarkable. Lactate was slightly elevated 2.3. Orthostatic vital signs were obtained and were positive. Patient was ordered a liter normal saline fluid bolus. CT scan of abdomen pelvis with IV contrast ordered and pending. CT scanof the abdomen pelvis with IV contrast was obtained and really did not show any significant acute process. Patient had sigmoid diverticulosis and small left adrenal adenoma. Patient had an enlarged prostate. Lab Data Attestation: I reviewed the patient's lab results. Labs: Laboratory Results - last 24 hr 02/08/24 10:20 WBC 7.1 RBC 2.34 L Hgb 8.1 L Hct 25.1 L MCV 107.3 H MCH 34.6 H MCHC 32.3 RDW Std Deviation 53.9 H RDW Coeff of [place]in 14.2 Plt Count 259 MPV 10.5 Immature Gran % (Auto) 0.600 Neut % (Auto) 64.2 Lymph % (Auto) 21.2 [place] % (Auto) 8.4 Eos % (Auto) 4.5 Baso % (Auto) 1.1 H Absolute Neuts (auto) 4.6 Absolute Lymphs (auto) 1.51 Nucleated RBC % 0 Sodium 136 Potassium 4.1 Chloride 105 Carbon Dioxide 24.0 Anion Gap 7 BUN 25 H Creatinine 1.23 Estim Creat Clear Calc 54.03 Est GFR (MDRD) Af Amer 73 Est GFR (MDRD) Non-Af 60 BUN/Creatinine Ratio 20.3 H Glucose 193 H Lactic Acid 2.3 H* Calcium 8.5 Total Bilirubin 0.50 AST 18 ALT 19 Alkaline Phosphatase 100 Troponin I High Sens 3 Total Protein 6.7 Albumin 3.4 Globulin 3.3 Albumin/Globulin Ratio 1.0 Radiography Diagnostic Testing: Clinical Impression(s) from Imaging Studies Abdomen/Pelvis CT 02/08/24 10:18 IMPRESSION: Stable 9 mm calculus in the right renal pelvis. Heterogeneous enlargement of the prostate with calcification. Small left adrenal adenoma. Fatty infiltration of the liver. Sigmoid diverticulosis. Electronically Signed: Yomi Bosch MD at 11:40 EDT , EKG Initial EKG: Attestation: I personally reviewed and interpreted this EKG as follows: Comments: Sinus rhythm with rate of 70 bpm with no acute ST segment changes Discharge Plan Triage Chief Complaint: Weakness Other Complaint: Syncope ED Provider: Shayne Elder Dx/Rx/DC Orders Clinical Impression: Orthostatic hypotension, Anemia, Acute lower GI bleeding Prescriptions: No Action cyanocobalamin (vitamin B-12) [Vitamin B-12] 1,000 mcg tablet 1,000 mcg PO QDAY valsartan-hydrochlorothiazide [Diovan HCT] 320-25 mg tablet 1 tab PO QDAY multivitamin tablet 1 tab PO QDAY simvastatin 40 mg tablet 40 mg PO QPM omeprazole 20 mg capsule,delayed release(DR/EC) 20 mg PO QDAY allopurinol 100 mg tablet 200 mg PO QDAY aspirin [Adult Aspirin Regimen] 81 mg tablet,delayed release (DR/EC) 81 mg PO DAILY omega-3 acid ethyl esters [Lovaza] 1 gram capsule 2 cap PO BID PreserVision AREDS-2 [phone] fn-elrf-ma-mg capsule 2 tab PO DAILY Rx Instructions: administer with meals sildenafil (pulm.hypertension) 20 mg tablet 20 mg PO Q24H PRN (Reason: sexual activity) Patient Comments: TAKE 1-3 TABLETS DAILY ONE HOUR PRIOR TO INTERCOURSE amitriptyline 25 mg tablet 25 mg PO QHS Qty: 90 2RF diclofenac sodium 75 mg tablet,delayed release (DR/EC) 75 mg PO BID PRN (Reason: pain) Qty: 180 2RF (DME) Bilateral wrist splints See Rx Instructions .ROUTE .MEDSUPPLY Qty: 2 0RF Rx Instructions: Right and left wrist splints to be worn at night ursodiol 300 mg capsule 300 mg PO BID Qty: 60 11RF Primary Care Provider: Radha Merino Referrals: Radha Merino MD [Primary Care Provider] - Disposition Disposition: Acute Care Hospital [facility] What to do if you have Problems For any increased pain, shortness of breath, bleeding, nausea or vomiting, chestpain, or any unexpected problems, contact your Primary Care Provider. Call [facility] ([phone]) or report to the closest Emergency Room. Call 911 if necessary. 02/08/24 0560 <Electronically signed by Shayne Elder DO> Cosigner Signature (if applicable): CC: Dr. Radha Merino MD ~ Signed [facility] Work Phone: [phone]) 767-637502-29-2024 History of Present illness Narrative* Eleonora Hillman MD - 01/20/2024 10:03 AM EST [facility] Endocrinology [facility] Met[facility] [place] Department of Endocrine Surgery Eleonora Hillman M.D. [address] [place] [address] Mr. Kerwin Alvarado's postoperative visit was conducted via telephone call. [...] or seroma. His voice is normal. Mr. Alvarado has done well since his surgery. I have given him a requisition to have his calcium and PTH checked in six months along with vitamin D levels. I appreciate being involved in the care of your patient, and please feel free to contact me should you have any questions or concerns. ELEONORA HILLMAN M.D. CC: MAKENNA Muñiz M.D. documented in this encounterOhiohealth Doctors Hospital02-09-2024 Miscellaneous Notes* Telephone Encounter - Sasha Rogers RN - 12/31/2023 4:22 PM EST Called pt and left a voice mail to see how pt is doing after undergoing Subtotal parathyroidectomy and cryopreservation with Dr. Hillman on 12/24/23. Reminded of post-op follow-up appointment and instruction was given to have labs drawn prior to theappointment. Pt to call for questions. Sasha Rogers RN documented in this encounterOhiohealth Doctors Hospital02-03-2024 NoteHNO ID: [id number] Author: ANTIONE MURPHY MD Service: Endocrine Surgery Author Type: Physician Type: Progress Notes Filed: 12/25/2023 07:10 Note Text: ENDOCRINE SURGERY INPATIENT PROGRESS NOTE Name: Kerwin JOHNSONN: [id number] Date: December 25, 2023 POD# 1 S/P parathyroidectomy S: Recovering appropriately. No dysphagia. No dysphonia. No paresthesias. No signs of hematoma. O: PHYSICAL EXAM: BP 118/60 Pulse 78 Temp 36.8 ?C (98.2 ?F) (Oral) Resp 17 Ht 175.3 cm (5' 9) Wt 102.5 kg (225 lb 15.5 oz) [...] 5 ml Net 1495 ml ASSESSMENT: Kerwin Alvarado is POD1 and recovering well. PLAN of Care: - Regular diet - No SQH - SCDs - Multimodal pain regimen, minimize narcotics - Follow-up PTH and Ca in AM - Discharge this morning Antione Murphy MD [phone] Clinical Associate [facility] [place], [facility] NoteHNO ID: [id number] Author: KATIE INFANTE MD Service: Endocrine Surgery Author Type: Physician Type: Progress Notes Filed: 12/24/2023 15:19 Note Text: . ENDOCRINE SURGERY PROGRESS NOTE NAME: Kerwin Alvarado 12/24/2023 8:18 AM Assessment and Plan: Kerwin Alvarado is a 83 year old male w/ [...] MD, PhD Clinical Associate [facility] [place] Department of Endocrine Surgery [id number] Patient Active Hospital Problem List: Obesity, Class [...] Status 10/22/2023 59 15 - 65 pg/mL [facility]24 NoteHNO ID: [id number] Author: ABIGAIL GODINEZ APRN.CRNA Service: ? Author Type: Nurse Dolly Operator Type: Anesthesia Procedure Notes Filed: 12/24/2023 07:32 Note Text: ANESTHESIOLOGY PROCEDURE NOTE Airway General Information Procedure Start Time/Medication Administration: 12/24/2023 7:23 AM Patient location during procedure: OR Staffing PATROL OFFICER: Abigail Godinez APRN.PATROL OFFICER Indications and Patient Condition Indications for airway [...] 1 Airway not difficult SIGNATURE: Abigail Ruiz APRN.PATROL OFFICER PATIENT NAME: Kerwin Alvarado DATE: December 24, 2023 TIME: 7:32 AM CSN: [id number] History of Present illness Narrative* Hillman, Eleonora Reynoso Usha, MD - 10/21/2023 9:40 AM EST [facility]inology [facility] [place] Department of Endocrine Surgery Eleonora Hillman M.D. [address] [place] [address] Mr. Kerwin Alvarado was seen in the office today in consultation for primary hyperparathyroidism. The patient was referred by Charlene Martinez, and my findings and recommendations will be communicated by way of the shared medical record. Thank you for referring your patient, Mr. Alvarado, for evaluation of primary hyperparathyroidism. Asyou know, he is an 83-year-old male who was incidentally found to have an elevated calcium level during workup for kidney stones. Subsequent biochemical work-up also revealed elevated PTH levels. Thediagnosis of primary hyperparathyroidism was made, and he was referred here for further evaluation. The patient's past medical history is significant for recurrent nephrolithiasis, hypertension, mitral regurgitation, GERD, gout, and BPH. His medications include potassium citrate, ursodiol, omeprazole, simvastatin, allopurinol, valsartan- HCTZ, aspirin, and vitamins. The patient's past surgical [...] consistent with osteopenia. On physical examination, Mr. Alvarado is a healthy appearing man in no [...] an abnormal parathyroid gland. In summary, Mr. Alvarado is an 83-year-old male with biochemical studies that show clear evidence of primary hyperparathyroidism. Given his history of kidney stones, as well as other manifestations of primary hyperparathyroidism, I feel that he would be best served by undergoing a parathyroid exploration. The indications, risks, benefits, and alternatives of a parathyroid exploration were explainedto the patient in detail. I will keep you informed as to his perioperative course. I appreciate being involved in the care of your patient, and please feel free to contact me should you have questions or concerns. ELEONORA HILLMAN M.D. CC: MAKENNA Muñiz M.D. documented in this encounterOhiohealth Doctors Hospital11-30-2023 Instructions* Patient Instructions* Elzbieta Tsang OCCA - 10/21/2023 8:56 AM EST Thank you for choosing the [facility] Department of Endocrinology, Diabetes and Metabolism. Did you know that you need to call 48 hours in advance of your scheduled visit, if you are unable to make your appointment? The [facility] thanks you for your commitment, because patients not showing to their appointment results in a lost opportunity for patients to receive world class health care at the [facility]. To Cancel an appointment, please choose one of the following: - Call the Appointment Call Center at [phone] - From [employer], Go to Appointments - Cancel Appts If cancelling, consider your need to reschedule to prevent further delays in your care. To Schedule an appointment, please choose one of the following: - Call the Appointment Call Center at [phone] - From [employer], Go to Appointments - Request an Appt documented in this encounterOhiohealth Doctors Hospital11-30-2023 History of Present illness Narrative* Ross Vargas RT(R) - 10/21/2023 7:30 AM EST RADIOLOGY SERVICE PROGRESS NOTE SERVICE DATE: 10/21/2023 [...] creatinine assay has traceable calibration to isotope dilution- mass spectrometry. Refer to KDIGO guidelines for clinical interpretation. In patients with unstable renal function, e.g. those with acute kidney injury, the eGFRmay not accurately reflect actual GFR. P.O.C.T. RESULTS: [...] TIME: PATIENT DISCHARGED TO: Ambulatory patient, left [place] department area. A Diagnostic radioactive procedure has taken place, with no further precautions necessary other than routine body substance precautions. More information regarding radiation safety can be found usingthis link: [email or web address] SIGNATURE: RT Lalitha(R) PATIENT NAME: Kerwin Alvarado DATE: October 21, 2023 TIME: 7:12 AM PAGER/CONTACT #: documented in this encounterOhiohealth Doctors Hospital11-29-2023 History of Present illness Narrative* Mikael Quintero RT(Javier) - 10/20/2023 10:30 AM EST Radiology Service Progress Note PATIENT NAME: Kerwin Alvarado DATE OF SERVICE: October 20, 2023 TIME: 10:38 AM PATIENT IDENTITY VERIFICATION COMPLETED USING TWO (2) IDENTIFIERS: Name and Date of confirmedby patient verbally. FALL SCREENING: Has the patient had 2 falls in the last year or 1 fall with injury or currently using an Ambulatory Assistive Device (Walker, Cane, Wheelchair, Crutches, etc.)? No PATIENT GENDER DATA: Male PATIENT RELEVANT IMPLANT DATA REVIEWED: Not Applicable RADIOLOGY DEPARTMENT: Bone Density PERIPHERAL IV DATA: Not applicable SIGNED BY: RT Shamar(Javier) October 20, 2023 10:38 AM documented in this encounterOhiohealth Doctors Hospital11-14-2023 Miscellaneous Notes* Telephone Encounter - Shabana Carrion - 10/05/2023 9:55 AM EST 10/05/2023 INTAKE COMPLETED-PT.PREFER TO CANCEL AND SEE A LOCAL MEDICAL CELL ASSEMBLY PINNER. IF EMIL AGREES TO SEE A MED. ENDO FIRST HE WILL CANCEL THIS APPOINTMENT. ENDOCRINE SURGERY PATIENT WORKSHEET Initial Call Date: October 05, 2023 Reason for Consult/ Referral: Hyperparathyroid PATIENT DEMOGRAPHICS Name: Kerwin Alvarado [facility]#: [id number] : 1940 AGE: [age] year old Contact Numbers: Home: (home) Work: There is no work phone number on file. PATIENT PHYSICIAN INFORMATION Referring Doctor: CHARLENE ANDRADE Address: Phone: Cutlet Maker Pork: CHARLENE ANDRADE Address: Phone: PCP: Radha Merino [address] [place] [address] PAST TREATMENT Office notes: SEE EPIC Medications: Aspirin No Pre-Visit Testing STUDY/TEST DATE ORDERED/REQUESTED DATE RECEIVED ENTIRE PANEL CALCIUM MAGNESIUM PHOS iPTH IONIZED CALCIUM VIT. D 25-HYDROXY VIT. D 1, 25-DIHYDROXY ALBUMIN 24HR URINE CALCIUM 24 HR URINE CREATININE MIBI SCAN BONE DENSITY SCAN Imaging Reports: SEE [facility] CD of Images: SEE [facility] FNA: no FNA Slides: N/A Has the patient ever had thyroid or parathyroid surgery before: No Operative Reports: NONE AVAILABLE Pathology Reports: NONE AVAILABLE documented in this encounterOhiohealth Doctors Hospital07-17-2023 History of Present illness Narrative* Radha Merino MD - 06/07/2023 11:20 AM EDT This note was created using [email or web address]. Subjective Kerwin Alvarado is a 82 year old male presenting [...] daily. He did see an orthopedist in [place] about 4 years ago who told him [...] pain and neck stiffness. Negative for gait problem,joint swelling, myalgias and neck pain. Intermittent numbness and tingling in arms bilaterally. 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 Skin: Negative. Allergic/Immunologic: Negative. Neurological: Negative. Hematological: Negative. Psychiatric/Behavioral: Negative. Objective BP (P) 128/74 (BP Site: Left Arm, BP Position: Sitting) Temp (P) 36.1 C (97 F) (Temporal) Resp (P) 14 Ht (P) 175.3 cm (5' 9) Wt (P) 98.6 kg (217 lb 6.4 [...] Increasing. Plan: CONSULT TO ORTHOPAEDICS Consult to [place] [facility] per patient request for evaluation of [...] screening, healthy life style, and diet. Boostrix vaccineupdated today. Kerwin will obtain the shingles vaccine series at his convenience. He will bring current advanced directive paperwork to the office at at his next visit. Radha Merino MD * Lorri Campbell LPN - 06/07/2023 10:20 AM EDT Patient in office today for an annual [...] 5 shots so far done at [facility] Medicare Yearly Visit PAST MEDICAL HISTORY [...] diet for sodium, low fat and low cholesterolmost of the time. List of current specialists seen: Dermatology---Sharon [facility] [place] [facility]---Dr Buck in [facility] Cardiology---Dr Zuniga Urology---[facility] [...] bars in the bathroom, lack of handrails onthe stairs or have poor lighting? No Hearing [...] visit and provided to the patient: Lorri Campbell LPN documented in this encounterOhiohealth Doctors Hospital06-07-2023 Nurse Note* Lary Leung LPN - 04/28/2023 9:40 AM EDT POST PROCEDURE NURSE Audible Time Out: 09:00 Procedure Start Time: 09:00 Procedure/Indication Cystoscopy/stent extraction Instruction sheet given and reviewed and patient verbalizes understanding: yes Post-Procedure Vital Signs: BP 169/89 Pulse 69 Post Procedure Antibiotic: N/A Is the patient having any pain? No 0 on a scale of 0 to 10 Lary Leung LPN * Lary Leung LPN - 04/28/2023 9:11 AM EDT UNIVERSAL PROTOCOL / SAFETY CHECKLIST Procedure to [...] intended procedure. Sign Out: Lary Leung LPN * Lary Leung LPN - 04/28/2023 9:10 AM EDT PRE CYSTO PROCEDURE ID Verified by: Lary Leung LPN Procedure Indication:Cystoscopy/Stent extracion Latex Allergy: No Betadine Allergy: No Lidocaine allergy: No Allergies reviewed and updated. Pre-Procedure Vital Signs: Height 175.3 cm (5' 9), weight 97.1 kg (214 lb). Heart valve replacement:No Joint replacement: No Pre-Procedure Antibiotics: None Patient Prep: Betadine Scrub to perineum and placement of Sterile Drape. Anesthetic Given: 10 cc 2% Lidocaine jelly Lary Leung LPN documented in this encounterOhiohealth Doctors Hospital06-07-2023 History of Present illness Narrative* Tino Garcia MD - 04/28/2023 9:19 AM EDT [facility] FOLLOW UP NOTE NAME: Kerwin Alvarado [facility] #: [id number] : 1940 AGE: [age] year old Kerwin Alvarado is a 82 year old male, who returns for post-operative cystoscopy with ureteral stentremoval. ASSESSMENT - horseshoe kidney - s/p left [...] by others. Milana Garcia MD Staff Urologist, [facility]. S/P Left URS on 04/21/2023. OPERATIVE FINDINGS: Stone Sheridan: Primary stone 15 mm ureterovesical junction; Additional stone(s) none Ureteral Access Sheath: None Lithotripsy Technique: fragmenting and basket extraction Laser: 365-micron Fiber Dust thulium fiber laser; 1 J and 3 Hz, changed to 1 J and 5 Hz Irrigation: Path Finder bulb shrimp pond laborer; max pressure hand irrigation (1-10 ml per [...] procedure table in the supine position and preppedand draped in the usual sterile fashion. Lubrication was placed per urethra in the standard fashion. The tip of the flexible digital cystoscope was carefully placed into the urethra under direct visual guidance and the procedure was performed. The bladder was entered and the previously placed ureteral stent was noted to be emanating from the left ureteral orifice. This was grasped with a flexiblealligator grasper, and removed in whole without issues. The patient tolerated the procedure without complications, and was given standard post-procedure instructions. documented in this encounterOhiohealth Doctors Hospital05-31-2023 Miscellaneous Notes* Telephone Encounter - Raquel Hutchison RN - 04/21/2023 12:11 PM EDT Returned call and spoke with pharmacist. Confirmed that patient had surgery today and toradol injection order was placed. Pharmacist voiced understanding and will fill toradol pills. Raquel Hutchison RN * Telephone Encounter - Celeste Callaway - 04/21/2023 9:34 AM EDT [facility]ema in [place] is calling Tino Garcia MD today to confirm that the patient has had IV treatment before they can dispense the pill form of Ketorolac that they received this morning. No chief complaint on file. Patient has been identified by name and birthdate. Duration of symptoms: N/A Was an appointment scheduled: No Closing statement: Results or non-symptom based questions: Thank you for calling [facility], your call will be returned within the next business day. Celeste Fernando Pss documented in this encounterOhiohealth Doctors Hospital05-09-2023 History of Present illness Narrative* Tino Garcia MD - 03/30/2023 10:53 AM EDT [facility] [place] Patient: Kerwin Alvarado Provider Tino Garcia MD : 1940 Location: [facility] Date of Service: March 30, 2023 Referring Provider: Yumiko Hernandez MD PCP: Radha Merino MD Reason for Consultation and Chief Complaint: Kerwin Alvarado is a 82 year old year old [...] the time of this visit. Either the patientor their legal inside sales account representative has been informed of the risks [...] Yes, Potassium citrate or Sodium Bicarb: No Hydrochlorothiazide/Chlorthalidone:No Allopurinol:Yes Topamax: No Vitamin D: No Other: [...] moderate degenerative disc disease. Lower thorax: Unremarkable. Client Service Coordinator (topogram) images: Unremarkable. Renal Ultrasound: 03/18/2023, date [...] 2 capsules by mouth twice daily. 360 capsule3 sildenafil (REVATIO) 20 mg tablet Take 1 [...] medications for this visit. documented in this encounterOhiohealth Doctors Hospital05-05-2023 Miscellaneous Notes* Telephone Encounter - Josiah Lawrence - 03/26/2023 12:40 PM EDT Patient scheduled 04/05. * Telephone Encounter - AMANDA Candelario - 03/25/2023 11:46 AM EDT Called patient, no answer. Left voicemail. * Telephone Encounter - Yumiko Hernandez MD - 03/25/2023 8:50 AM EDT Good morning, Please reach out to this [...] been completed. Fernando Sal documented in this encounterOhiohealth Doctors Hospital05-03-2023 History of Present illness Narrative* Socorro Guerrero RT(R) - 03/24/2023 8:40 AM EDT Radiology Service Progress Note PATIENT NAME: Kerwin Alvarado DATE OF SERVICE: March 24, 2023 TIME: 2:46 PM PATIENT IDENTITY VERIFICATION COMPLETED USING TWO (2) IDENTIFIERS: Name and Date of confirmedby patient verbally. FALL SCREENING: Has the patient [...] 24, 2023 2:46 PM documented in this encounterOhiohealth Doctors Hospital04-25-2023 History of Present illness Narrative* Radha Merino MD - 03/16/2023 10:54 AM EDT This note was created using [employer]. Subjective Kerwin Alvarado is a 82 year old male. Kerwin presents today for follow-up for CT scan showing kidneystones. One was 1.1 cm at the vesicoureteral junction. The second was within the calyx of the kidney. He has a prior history of kidney stones. He is not currently in any discomfort. He states she hasnot noticed if he has passed the 1.1 [...] (Temporal) Resp 18 Ht 175.3 cm (5' 9) Wt 98.3 kg (216 lb 12.8 oz) [...] treatment of kidney stones. Radha Merino MD * Mary Ford LPN - 03/15/2023 3:44 PM EDT Patient is in office for kidney stone. Patient stated that he has not passed kidney stones, 2 have been identified by CT Scan. Results are present in patients chart. Patient is being seen by Urology tomorrow. No refills needed Mary Ford LPN March 15, 2023 3:56 PM documented in this encounterOhiohealth Doctors Hospital04-25-2023 Instructions* Patient Instructions* Yumiko Hernandze MD - 03/16/2023 10:08 AM EDT Patient instructions 1. I had a detailed discussion with you. I reviewed your CT report. I do not have the CT scan that you did at [facility] - this scan is needed to make a judgement as to what is the best approach. 2. I chava diagrams to illustrate my points. According to the scan, you have an 11mm stone in your left distal ureter. I explained that stones move and stones shift position, and this is why sometimesthere is pain, and at other times there [...] be 11mm long and only 1 or 2mm wide (and can be expected to pass), but a stone can be 11mm long and be 10mm wide (and this may not be expected to pass. 3. With the above caveats in mind, I discussed the [place] [employer] guidelines on the medical management of stones and the overall management of stones. I discussed a trial of passage.We discussed the percent chances of stone passage. If it passes, you would avoid surgery. If you fail to pass it, you may have continuing pain, nauseaand vomiting with renal impairment and a risk [...] it is how much urine you make thatdetermines if the stone will pass or not. [...] show up on a plain x ray -remember, shock waves are done under plain x [...] stones break, and not all stone fragments pass.If the stone breaks and the fragments get [...] and I do not give refills. The discomfortfrom the stent is mainly a spasm type discomfort from the stent rubbing against the inner lining ofthe bladder, and I do give bladder spasm medications that help with this. On rare occasion, a stent cannot be placed because I cannot get past the stone, and in such a case,you might need a tube placed in your [...] bleeding, failure to retrieve the stone, heart attack,stroke, pneumonia, blood clots in the lungs and [...] stents and the stones, and will need tocome back on another day for a second procedure - this is the bilateral ureteroscopy and laser lithotripsy (to break up and remove the stone). You will then need to come back a third time to have thestents removed. The third visit to remove the stents is done in the office; the first two procedures are done in the operating room under general anaesthesia. Sometimes patients ask why we cannot plan for the stonesto be retrieved during the very first procedure. The answer is that if the stones are stuck in the ureter, they are usually stuck because they are too large for the ureter; if they are too large for the ureter, then sometimes this means the ureters are too narrow to allow passage of the instrumentsnecessary to retrieve the stone at the first sitting. If the stones are in the kidney, they are notblocking the flow, but again, sometimes the ureter is too narrow to allow the instruments to pass. P lacing stents allows the ureters to passively dilate, [...] is the third procedure), but sometimes you mayneed to have the stents for a longer [...] a stricture forming. If a stricture does occur,more surgery would be needed to correct this. There is a risk of ureteral avulsion. In this case, the ureter is pulled up off the bladder. If this were to occur, an open surgery would be needed to correct this problem. On occasion, I cannot place stents into the ureter. If this occurs, you will be awakened and I willdiscuss this with you further. If this occurs, [...] is more common in patients who have urinarysymptoms to start off with. If you cannot urinate after the procedure, you will need a vigil catheter. This is a small plastic tube placed to drain the bladder. If this occurs, it will be removed a few days later. As discussed above, my primary goal is to place stents (procedure 1). There is always a possibilitythat I may not be able to get up into the ureters to remove the stones. In this case, stents can beplaced and the stones will be removed on [...] options. Yumiko Hernandez MD documented in this encounterOhio[facility] History of Present illness Narrative* Yumiko Hernandez MD - 03/16/2023 10:00 AM EDT [facility]TER DEPART[facility] Consultation Request by: Radha Merino [id number] [facility] [id number] Chief Complaint: Nephrolithiasis History of Present Illness: [...] recommended some medication for the constipation. He istaking this, and this is helping. The stones are completely incidental. He has had no pain from these at all. He has had kidney stones. He says he passed one in 2003 and it was painful - this was in [place]. This was the week that he moved to [place]. He had another in 2007; he passed this as well. In 2007 there was what sounds like an attempted ESWL but the stone could not be seen; he had what sounds likea stent and the stent was removed and the stone came out. He has a weak stream and he has had this since his 20s. No burning, no blood, no pushing or straining. 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 Prostate biopsy in the late in [place] - not cancer Remote history of prostatitis PLAN: 1. Send urine for urinalysis and urine culture 2. We checked the patient's post void residual bladder volume using a hand held bladder ultrasound.This was done by my center medical specialist under my direct supervision, and was indicated for the diagnosis of a weak urinary stream. The post void residual volume was 0mls. 3. Lab work, CT scan Patient instructions 1. I had a detailed discussion with you. I reviewed your CT report. I do not have the CT scan that you did at [facility] - this scan is needed to make a judgement as to what is the best approach. 2. I chava diagrams to illustrate my points. According to the scan, you have an 11mm stone in your left distal ureter. I explained that stones move and stones shift position, and this is why sometimesthere is pain, and at other times there [...] be 11mm long and only 1 or 2mm wide (and can be expected to pass), but a stone can be 11mm long and be 10mm wide (and this may not be expected to pass. 3. With the above caveats in mind, I discussed the [place] [employer] guidelines on the medical management of stones and the overall management of stones. I discussed a trial of passage.We discussed the percent chances of stone passage. If it passes, you would avoid surgery. If you fail to pass it, you may have continuing pain, nauseaand vomiting with renal impairment and a risk [...] it is how much urine you make thatdetermines if the stone will pass or not. [...] show up on a plain x ray -remember, shock waves are done under plain x [...] stones break, and not all stone fragments pass.If the stone breaks and the fragments get [...] and I do not give refills. The discomfortfrom the stent is mainly a spasm type discomfort from the stent rubbing against the inner lining ofthe bladder, and I do give bladder spasm medications that help with this. On rare occasion, a stent cannot be placed because I cannot get past the stone, and in such a case,you might need a tube placed in your [...] bleeding, failure to retrieve the stone, heart attack,stroke, pneumonia, blood clots in the lungs and [...] stents and the stones, and will need tocome back on another day for a second procedure - this is the bilateral ureteroscopy and laser lithotripsy (to break up and remove the stone). You will then need to come back a third time to have thestents removed. The third visit to remove the stents is done in the office; the first two procedures are done in the operating room under general anaesthesia. Sometimes patients ask why we cannot plan for the stonesto be retrieved during the very first procedure. The answer is that if the stones are stuck in the ureter, they are usually stuck because they are too large for the ureter; if they are too large for the ureter, then sometimes this means the ureters are too narrow to allow passage of the instrumentsnecessary to retrieve the stone at the first sitting. If the stones are in the kidney, they are notblocking the flow, but again, sometimes the ureter is too narrow to allow the instruments to pass. P lacing stents allows the ureters to passively dilate, [...] is the third procedure), but sometimes you mayneed to have the stents for a longer [...] a stricture forming. If a stricture does occur,more surgery would be needed to correct this. There is a risk of ureteral avulsion. In this case, the ureter is pulled up off the bladder. If this were to occur, an open surgery would be needed to correct this problem. On occasion, I cannot place stents into the ureter. If this occurs, you will be awakened and I willdiscuss this with you further. If this occurs, [...] is more common in patients who have urinarysymptoms to start off with. If you cannot urinate after the procedure, you will need a vigil catheter. This is a small plastic tube placed to drain the bladder. If this occurs, it will be removed a few days later. As discussed above, my primary goal is to place stents (procedure 1). There is always a possibilitythat I may not be able to get up into the ureters to remove the stones. In this case, stents can beplaced and the stones will be removed on [...] Moderate Yumiko Hernandez MD documented in this encounterOhio[facility]04-20-2023 Miscellaneous Notes* Telephone Encounter - Iris Umanzor RN - 03/11/2023 3:24 PM EDT Patient calling with ongoing kidney stone symptoms. [...] have any questions, you can call Nurse director of operations support back. documented in this encounterOhiohealth [facility] Hospital01-16-2023 History of Past illness Narrative* Problem Noted Date Resolved Date Intermittent claudication 12/07/20222022 documented as of this encounter (statuses as of 03/16/2023) [facility] of [facility] Narrative* Problem Noted Date Resolved Date Intermittent claudication 12/07/20222022 documented as of this encounter (statuses as of 03/16/2023) [facility] of [facility] Narrative* Problem Noted Date Resolved Date Intermittent claudication 12/07/20222022 documented as of this encounter (statuses as of 03/17/2023) [facility] Narrative* Problem Noted Date Resolved Date Intermittent claudication 12/07/20222022 documented as of this encounter (statuses as of 03/18/2023) [address]16-2023 History of Past illness Narrative* Problem Noted Date Resolved Date Intermittent claudication 12/07/20222022 documented as of this encounter (statuses as of 03/18/2023) [address]16-2023 History of Past illness Narrative* Problem Noted Date Resolved Date Intermittent claudication 12/07/20222022 documented as of this encounter (statuses as of 03/25/2023) [address]16-2023 History of Past illness Narrative* Problem Noted Date Resolved Date Intermittent claudication 12/07/20222022 documented as of this encounter (statuses as of 03/26/2023) [address]16-2023 History of Past illness Narrative* Problem Noted Date Resolved Date Intermittent claudication 12/07/20222022 documented as of this encounter (statuses as of 04/05/2023) [address]16-2023 History of Past illness Narrative* Problem Noted Date Resolved Date Intermittent claudication 12/07/20222022 documented as of this encounter (statuses as of 04/21/2023) [address]16-2023 History of Past illness Narrative* Problem Noted Date Resolved Date Intermittent claudication 12/07/20222022 documented as of this encounter (statuses as of 04/22/2023) [address]16-2023 History of Past illness Narrative* Problem Noted Date Resolved Date Intermittent claudication 12/07/20222022 documented as of this encounter (statuses as of 04/28/2023) [address]16-2023 History of Past illness Narrative* Problem Noted Date Diagnosed Date Resolved Date Intermittent claudication 12/07/2022 documented as of this encounter (statuses as of 06/07/2023) [address]16-2023 History of Past illness Narrative* Problem Noted Date Diagnosed Date Resolved Date Intermittent claudication 12/07/2022 documented as of this encounter (statuses as of 06/21/2023) [address]16-2023 History of Past illness Narrative* Problem Noted Date Diagnosed Date Resolved Date Intermittent claudication 12/07/2022 documented as of this encounter (statuses as of 09/26/2023) [address]16-2023 History of Past illness Narrative* Problem Noted Date Diagnosed Date Resolved Date Intermittent claudication 12/07/2022 documented as of this encounter (statuses as of 10/05/2023) [address]16-2023 History of Past illness Narrative* Problem Noted Date Diagnosed Date Resolved Date Intermittent claudication 12/07/2022 documented as of this encounter (statuses as of 10/21/2023) [address]16-2023 History of Past illness Narrative* Problem Noted Date Diagnosed Date Resolved Date Intermittent claudication 12/07/2022 documented as of this encounter (statuses as of 10/21/2023) [address]16-2023 History of Past illness Narrative* Problem Noted Date Diagnosed Date Resolved Date Intermittent claudication 12/07/2022 documented as of this encounter (statuses as of 10/22/2023) [address]16-2023 History of Past illness Narrative* Problem Noted Date Diagnosed Date Resolved Date Intermittent claudication 12/07/2022 documented as of this encounter (statuses as of 10/22/2023) [address]16-2023 History of Past illness Narrative* Problem Noted Date Diagnosed Date Resolved Date Intermittent claudication 12/07/2022 documented as of this encounter (statuses as of 12/31/2023) [address]16-2023 History of Past illness Narrative* Problem Noted Date Diagnosed Date Resolved Date Intermittent claudication 12/07/2022 documented as of this encounter (statuses as of 01/20/2024) [address]16-2023 History of Past illness Narrative* Problem Noted Date Diagnosed Date Resolved Date Intermittent claudication 12/07/2022 documented as of this encounter (statuses as of 02/09/2024) [address]16-2023 History of Past illness Narrative* Problem Noted Date Diagnosed Date Resolved Date Intermittent claudication 12/07/2022 documented as of this encounter (statuses as of 02/14/2024) [facility] Narrative* Problem Noted Date Diagnosed Date Resolved Date Intermittent claudication 12/07/2022 documented as of this encounter (statuses as of 03/02/2024) [facility] Narrative* Problem Noted Date Diagnosed Date Resolved Date Intermittent claudication 12/07/2022 documented as of this encounter (statuses as of 03/03/2024) [facility] History of Present illness Narrative* Radha Merino MD - 12/07/2022 11:24 AM EST This note was created using [employer]. Subjective Kerwin Alvarado is a 82 year old male. Kerwin [...] (Temporal) Resp 16 Ht 175.3 cm (5' 9) Wt 96.6 kg (213 lb) SpO2 98% [...] 07, 2022 10:13 AM documented in this encounterOhio[facility]10-12-2022 Miscellaneous Notes* Telephone Encounter - Noemi Blakely LPN - 09/02/2022 8:57 AM EDT Pharmacy faxed requesting the following refill. Requested Prescriptions Pending Prescriptions Disp Refills omeprazole (PRILOSEC) 20 mg capsule [Pharmacy Med Name: Omeprazole 20 MG Oral Capsule Delayed Release] 90 capsule 3 Sig: Take 1 capsule by mouth once daily. Patient last appointment: 08/29/2022 Patient Phone numbers: [phone] (home) Request is for script(s) to be escript to pharmacy. Noemi Blakely LPN documented in this encounterOhiohealth [facility] Hospital10-10-2022 Miscellaneous Notes* Telephone Encounter - Mary Ford LPN - 08/31/2022 11:11 AM EDT Requested Prescriptions Pending Prescriptions Disp Refills simvastatin (ZOCOR) 40 mg tablet [Pharmacy Med Name: Simvastatin 40 MG Oral Tablet] 90 tablet 3 Sig: TAKE 1 TABLET BY MOUTH ONCE DAILY DIRECTED Mary Ford LPN August 31, 2022 11:11 AM documented in this encounterOhiohealth [facility] Hospital09-09-2022 Miscellaneous Notes* Telephone Encounter - Noemi Blakely LPN - 07/31/2022 11:19 AM EDT Pharmacy faxed requesting the following refill. Requested Prescriptions Pending Prescriptions Disp Refills allopurinol (ZYLOPRIM) 100 mg tablet [Pharmacy Med Name: Allopurinol 100 MG Oral Tablet] 180 tablet3 Sig: TAKE 2 TABLETS BY MOUTH ONCE DAILY DIRECTED Patient last appointment: 06/30/2022 Patient Phone numbers: [phone] (home) Request is for script(s) to be escript to mail order [facility]. Noemi Blakely LPN documented in this encounterOhiohealth [facility] Hospital08-09-2022 Miscellaneous Notes* Telephone Encounter - Mary [...] 30, 2022 10:30 AM documented in this encounterOhiohealth [facility] Hospital08-03-2022 History of Present illness Narrative* Radha Merino MD - 06/24/2022 11:05 AM EDT This note was created using [email or web address]. Subjective Kerwin Alvarado is a 81 year old male. Kerwin [...] (Temporal) Resp 18 Ht 175.3 cm (5' 9) Wt 96.7 kg (213 lb 3.2 oz) [...] months for regular follow-up documented in this encounterOhiohealth Doctors Hospital08-03-2022 Nurse Note* Mary Ford LPN - 06/24/2022 10:19 AM EDT Follow up, was dehydrated due to GI virus recently , currently no issues. Mary Ford LPN June 24, 2022 10:20 AM [facility] noteNo assessment information availableWUniversity Hospitals [facility] Work Phone: Evaluation note* Diagnosis Gastroenteritis- Primary Other and unspecified noninfectious gastroenteritis and colitis Personal history of COVID-19 ED (erectile dysfunction) of organic origin Impotence of organic origin documented in this encounter [facility] note* Diagnosis Onset Date Resolution Status Essential hypertension chron ic Hyperlipidemia chronic Paresthesia of both hands ac [place] Chronic polyneuropathy chron ic [facility] Work Phone: Evaluation note* Diagnosis Chronic constipation- Primary Unspecified constipation Pure hypercholesterolemia Hypertension, essential Unspecified essential hypertension Hyperglycemia Other abnormal glucose documented in this encounter [facility] note* Diagnosis Onset Date Resolution Status Constipation chronic [facility] Work Phone: Evaluation note* Diagnosis History of nephrolithiasis- Primary Personal history of urinary calculi documented in this encounter [facility] note* Diagnosis Nephrolithiasis- Primary Calculus of kidney [facility] Diagnosis History of UTI- Primary Personal history of urinary (tract) infection [facility]* Diagnosis History of nephrolithiasis- Primary Personal history of urinary calculi documented in this encounter [facility] note* 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 Left nephrolithiasis Left ureteral stone documented in this encounter [facility] note* 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 Left nephrolithiasis documented in this encounter [facility] note* Diagnosis Wellness examination- Primary Chronic midline low back pain without sciatica Hypertension, essential Unspecified essential hypertension Pure hypercholesterolemia Screening for deficiency anemia Screening for other and unspecified deficiency anemia documented in this encounter [facility] note* Diagnosis History of nephrolithiasis Personal history of urinary calculi documented in this encounter [facility] note* Diagnosis Hyperparathyroidism (HCC) Hyperparathyroidism, unspecified [facility]* Diagnosis Phosphate calculi Urinary calculus, unspecified Hyperparathyroid (HCC) documented in this encounter [facility] note* Diagnosis Hyperparathyroidism (HCC)- Primary Hyperparathyroidism, unspecified documented in this encounter [facility] note* Diagnosis Onset Date Resolution Status Acute lower GI bleeding acut e Anemia acute Orthostatic hypotension acut e [facility] Work Phone: Evaluation note* Diagnosis Anemia, unspecified type- Primary documented in this encounter [facility] note* Diagnosis Onset Date Resolution Status Anemia chronic Acute lower GI bleeding reso lved Orthostatic hypotension reso lved Anemia chronic CASTELLANOS (nonalcoholic steatohepatitis) chronic Cervical radiculopathy acute Paresthesia of both hands ac [place] Chronic polyneuropathy chron ic Low back pain chronic Pain in left hip chronic [facility] Work Phone: Evaluation note* Diagnosis Preop examination- Primary Preoperative examination, unspecified Hypertension, benign Essential hypertension, benign [facility]* Diagnosis Recurrent nephrolithiasis- Primary Calculus of kidney Phosphate calculi Urinary calculus, unspecified 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 S/P parathyroidectomy Other postprocedural status Calcium oxalate calculus Low urine output Oliguria and anuria Hypocitraturia Other nonspecific finding on examination of urine Aciduria (HCC) Other nonspecific finding on examination of urine Hypernatriuria Hyperosmolality and/or hypernatremia Adrenal mass, left (HCC) Unspecified disorder of adrenal glands [facility] Adrenal mass (HCC)- Primary Unspecified disorder of adrenal glands Disorder of adrenal gland (HCC) Unspecified disorder of adrenal glands documented in this encounter [facility] note* Diagnosis Pre-operative examination- Primary Preoperative examination, unspecified Benign prostatic hyperplasia with weak urinary stream Farias's esophagus with dysplasia Farias's esophagus Edema of lower extremity Edema Mixed hyperlipidemia Hypertension, benign Essential hypertension, benign Gout involving toe of right foot, unspecified cause, unspecified chronicity Constipation, unspecified constipation type Impaired glucose tolerance Impaired glucose tolerance test Polyneuropathy Unspecified hereditary and idiopathic peripheral neuropathy Class 1 obesity due to excess calories with body mass index (BMI) of 33.0 to 33.9 in adult, unspecified whether serious comorbidity present Pre-operative examination- Primary Preoperative examination, unspecified Farias's esophagus with dysplasia Farias's esophagus Benign prostatic hyperplasia with weak urinary stream Constipation, unspecified constipation type Edema of lower extremity Edema Gout involving toe of right foot, unspecified cause, unspecified chronicity Mixed hyperlipidemia Hypertension, benign Essential hypertension, benign Impaired glucose tolerance Impaired glucose tolerance test Polyneuropathy Unspecified hereditary and idiopathic peripheral neuropathy Nonrheumatic mitral valve regurgitation Obesity, Class I, BMI 30-34.9 Obesity, unspecified Disorder of adrenal gland (HCC) Unspecified disorder of adrenal glands [facility]* Diagnosis Pre-operative examination- Primary Preoperative examination, unspecified Benign prostatic hyperplasia with weak urinary stream Farias's esophagus with dysplasia Farias's esophagus Edema of lower extremity Edema Mixed hyperlipidemia Hypertension, benign Essential hypertension, benign Gout involving toe of right foot, unspecified cause, unspecified chronicity Constipation, unspecified constipation type Impaired glucose tolerance Impaired glucose tolerance test Polyneuropathy Unspecified hereditary and idiopathic peripheral neuropathy Class 1 obesity due to excess calories with body mass index (BMI) of 33.0 to 33.9 in adult, unspecified whether serious comorbidity present Pre-operative examination- Primary Preoperative examination, unspecified Farias's esophagus with dysplasia Farias's esophagus Benign prostatic hyperplasia with weak urinary stream Constipation, unspecified constipation type Edema of lower extremity Edema Gout involving toe of right foot, unspecified cause, unspecified chronicity Mixed hyperlipidemia Hypertension, benign Essential hypertension, benign Impaired glucose tolerance Impaired glucose tolerance test Polyneuropathy Unspecified hereditary and idiopathic peripheral neuropathy Nonrheumatic mitral valve regurgitation Obesity, Class I, BMI 30-34.9 Obesity, unspecified Wellness examination- Primary Screening for depression Encounter for screening examination for other mental health and behavioral disorders Advance care planning Other specified counseling Hypertension, benign Essential hypertension, benign Mixed hyperlipidemia Gastroesophageal reflux disease without esophagitis Esophageal reflux Farias's esophagus without dysplasia Farias's esophagus Impaired glucose tolerance Impaired glucose tolerance test Gout involving toe of right foot, unspecified cause, unspecified chronicity Screening PSA (prostate specific antigen) Special screening for malignant neoplasm of prostate Anemia, unspecified type Polyneuropathy Unspecified hereditary and idiopathic peripheral neuropathy Burning sensation of feet Disturbance of skin sensation Paresthesia of both hands Edema of lower extremity Edema Obesity, Class I, BMI 30-34.9 Obesity, unspecified Erectile dysfunction, unspecified erectile dysfunction type Medicare annual wellness visit, subsequent Routine general medical examination at a health care facility documented in this encounter [facility]* Diagnosis Pre-operative examination- Primary Preoperative examination, unspecified Benign prostatic hyperplasia with weak urinary stream Farias's esophagus with dysplasia Farias's esophagus Edema of lower extremity Edema Mixed hyperlipidemia Hypertension, benign Essential hypertension, benign Gout involving toe of right foot, unspecified cause, unspecified chronicity Constipation, unspecified constipation type Impaired glucose tolerance Impaired glucose tolerance test Polyneuropathy Unspecified hereditary and idiopathic peripheral neuropathy Class 1 obesity due to excess calories with body mass index (BMI) of 33.0 to 33.9 in adult, unspecified whether serious comorbidity present Pre-operative examination- Primary Preoperative examination, unspecified Farias's esophagus with dysplasia Farias's esophagus Benign prostatic hyperplasia with weak urinary stream Constipation, unspecified constipation type Edema of lower extremity Edema Gout involving toe of right foot, unspecified cause, unspecified chronicity Mixed hyperlipidemia Hypertension, benign Essential hypertension, benign Impaired glucose tolerance Impaired glucose tolerance test Polyneuropathy Unspecified hereditary and idiopathic peripheral neuropathy Nonrheumatic mitral valve regurgitation Obesity, Class I, BMI 30-34.9 Obesity, unspecified Hypertension, benign- Primary Essential hypertension, benign Gastroesophageal reflux disease without esophagitis Esophageal reflux Impaired glucose tolerance Impaired glucose tolerance test Mixed hyperlipidemia Gout involving toe of right foot, unspecified cause, unspecified chronicity Erectile dysfunction, unspecified erectile dysfunction type [facility] Diagnosis Pre-operative examination- Primary Preoperative examination, unspecified Benign prostatic hyperplasia with weak urinary stream Farias's esophagus with dysplasia Farias's esophagus Edema of lower extremity Edema Mixed hyperlipidemia Hypertension, benign Essential hypertension, benign Gout involving toe of right foot, unspecified cause, unspecified chronicity Constipation, unspecified constipation type Impaired glucose tolerance Impaired glucose tolerance test Polyneuropathy Unspecified hereditary and idiopathic peripheral neuropathy Class 1 obesity due to excess calories with body mass index (BMI) of 33.0 to 33.9 in adult, unspecified whether serious comorbidity present Pre-operative examination- Primary Preoperative examination, unspecified Farias's esophagus with dysplasia Farias's esophagus Benign prostatic hyperplasia with weak urinary stream Constipation, unspecified constipation type Edema of lower extremity Edema Gout involving toe of right foot, unspecified cause, unspecified chronicity Mixed hyperlipidemia Hypertension, benign Essential hypertension, benign Impaired glucose tolerance Impaired glucose tolerance test Polyneuropathy Unspecified hereditary and idiopathic peripheral neuropathy Nonrheumatic mitral valve regurgitation Obesity, Class I, BMI 30-34.9 Obesity, unspecified Wellness examination- Primary Screening for depression Encounter for screening examination for other mental health and behavioral disorders Hypertension, benign Essential hypertension, benign Mixed hyperlipidemia Impaired glucose tolerance Impaired glucose tolerance test Screening for deficiency anemia Screening for other and unspecified deficiency anemia Screening PSA (prostate specific antigen) Special screening for malignant neoplasm of prostate documented in this encounter [facility] Discharge instructionsAmbulatory Orders* Pain Management Location: None [facility] Work Phone: [facility] (narrative)* Diagnostic Procedure Only (Routine) - Pending Review Specialty Diagnoses / Procedures Referred By Ashanti sanchez Referred To Contact XR IMAGING Diagnoses Horseshoe kidney Left nephrolithiasis Procedures XR ABDOMEN 1V SPECIFY RADIOLOGIC EXAM ABDOMEN 1 VIEW Tino Garcia MD [address] [place] [address] Xr Imaging Referral ID Status Reason Start Date Expiration Date Visits Requested Visits Authorized [id number] Pending Review Auto-Generat ed Referral 04/28/2023 05/27/2024 1 1 [facility] for referral (narrative)* Diagnostic Procedure Only (Routine) - Closed Specialty Diagnoses / Procedures Referred By Contac t Referred To Contact XR IMAGING Diagnoses Hyperparathyroidism (HCC) Procedures DXA-FOREARM SKELETON DXA BONE DENSITY STUDY 1/>SITES APPENDICLR Eleonora Pizano MD [address] [place] [address] Xr Imaging [facility] [address] [address] Referral ID Status Reason Start Date Expiration Date V isits Requested Visits Authorized [id number] Closed Auto-Generate d Referral 10/11/2023 11/09/2024 1 1 [facility] for referral (narrative)* Medication Prior Authorization - Closed Specialty Diagnoses / Procedures Referred By Contac t Referred To Contact Radha Merino MD [address] [place] [address] Phone: tel: fax: Referral ID Status Reason Start Date Expiration Date Visits Re quested Visits Authorized [id number] Closed 1 1 [facility] for referral (narrative)No reason for referral information [facility] [employer] Work Phone: [facility] for visit Narrative* Diagnostic Procedure Only (Routine) - Closed Specialty Diagnoses / Procedures Referred By Contac t Referred To Contact XR IMAGING Diagnoses Hyperparathyroidism (HCC) Procedures DXA-FOREARM SKELETON DXA BONE DENSITY STUDY 1/>SITES APPENDICLR Eleonora Pizano MD [address] [place] [id number] Xr Imaging [place] [address] Referral ID Status Reason Start Date Expiration Date V isits Requested Visits Authorized [id number] Closed Auto-Generate d Referral 10/11/2023 11/09/2024 1 1 [facility] for visit Narrative* Diagnostic Procedure Only (Routine) - Closed Specialty Diagnoses / Procedures Referred By Contac t Referred To Contact MOLECULAR & FUNCTIONAL IMAGING Diagnoses Hyperparathyroidism (HCC) Procedures NM PARATHYROID W SPECT/CT PARATHYROID IMAGING W/TOMOGRAPHIC SPECT & CT Eleonora Hillman MD [address] [place] [address] Molecular & Functional Imaging [address] [place] [address] Referral ID Status Reason Start Date Expiration Date V isits Requested Visits Authorized [id number] Closed Auto-Generate d Referral 10/11/2023 11/09/2024 1 1 [facility] Family History No Family History Records Found Relationship Condition Age at Onset Recorded Date/T melvin father Dementia Unknown mother Atrial fibrillation Unknown Relationship Condition Age at Onset Recorded Date/T melvin father Dementia Unknown mother Atrial fibrillation Unknown sister Malignant neoplasm Unknown Advance Directives No Advanced Directives Records Found Advance Directive Response Recorded Date/ Time Living Will Yes September 05 3:12pm Power of Child Development Assistant Yes September 05, 2021 3:12pm Advance Directive Response Recorded Date/ Time Living Will Yes May 04, 2022 12:39pm Power of Child Development Assistant Yes May 04 12:39pm Documents on File Type Date Recorded 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 Advance Directive(s) 05/18/2016 11:04 AM Advance Directive(s) 11/11/2015 9:21 AM Documents on File Type Date Recorded 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 Advance Directive(s) 05/18/2016 11:04 AM Advance Directive(s) 11/11/2015 9:21 AM Documents on File Type Date Recorded 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 Advance Directive(s) 11/11/2015 9:21 AM Advance Directive Response Recorded Date/ Time Living Will Yes May 04, 2022 11:39am Power of Child Development Assistant Yes May 04 11:39am Documents on File Type Date Recorded 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 Advance Directive(s) 11/11/2015 9:21 AM Advance Directive Response Recorded Date/ Time Name of Medical Power of Child Development Assistant toi amor seofelia February 08, 2024 10:10am Living Will Yes February 08, 2024 10:10am Power of Child Development Assistant Yes February 07 10:10am Advance Directive Response Recorded Date/ Time Name of Medical Power of Child Development Assistant toi amor seofelia February 08, 2024 2:29pm Living Will Yes February 08, 2024 2:29pm Power of Child Development Assistant Yes February 07 2:29pm Advance Directive Response Recorded Date/ Time Living Will Yes June 15, 2024 12:28pm Do you have a Healthcare Power of Child Development Assistant? Yes June 15, 2024 12:28pm Chief Complaint and Reason for Visit Chief Complaint dehydration, stomach bug Chief Complaint FLU VACCINE 1 YR F/U (DJN/NN PT) R/S FU EORDER Reason for Visit Essential hypertensi on Hyperlipidemia Paresthesia of both hands Chronic polyneuropathy Chief Complaint Consult E ORDERS Reason for Visit Constipation Chief Complaint Consult E ORDERS GASTROPARESIS CONSTIPATION Reason for Visit Constipation Chief Complaint Consult E ORDERS GASTROPARESIS CONSTIPATION FATTY LIVER Reason for Visit Constipation Chief Complaint Consult E ORDERS GASTROPARESIS CONSTIPATION FATTY LIVER EORDER Reason for Visit Constipation Chief Complaint Fatty (change of) li victor m, not elsewhere classified Chief Complaint Fatty (change of) li victor m, not elsewhere classified ANEMIA, ORTHOSTATIC HYPOTENSION Reason for Visit Acute lower GI bleed ing Anemia Orthostatic hypotension Chief Complaint Fatty (change of) li victor m, not elsewhere classified ANEMIA, ORTHOSTATIC HYPOTENSION ANEMIA, ORTHOSTATIC HYPOTENSION ANEMIA, ORTHOSTATIC HYPOTENSION ANEMIA, ORTHOSTATIC HYPOTENSION ANEMIA, ORTHOSTATIC HYPOTENSION ANEMIA, ORTHOSTATIC HYPOTENSION ANEMIA, ORTHOSTATIC HYPOTENSION Reason for Visit Acute lower GI bleed ing Anemia Orthostatic hypotension Chief Complaint Fatty (change of) li victor m, not elsewhere classified ANEMIA, ORTHOSTATIC HYPOTENSION ANEMIA, ORTHOSTATIC HYPOTENSION ANEMIA, ORTHOSTATIC HYPOTENSION ANEMIA, ORTHOSTATIC HYPOTENSION ANEMIA, ORTHOSTATIC HYPOTENSION ANEMIA, ORTHOSTATIC HYPOTENSION ANEMIA, ORTHOSTATIC HYPOTENSION 6 MO FU EORDER 6 M FU Reason for Visit Anemia Acute lower GI bleeding Orthostatic hypotension Anemia CASTELLANOS (nonalcoholic steatohepatitis) Cervical radiculopathy Paresthesia of both hands Chronic polyneuropathy Low back pain Pain in left hip Chief Complaint Admit Date LUMBAR SPINE January 11, 2025 1:12pm Room 4 January 11, 2025 1:32pm 4 M FU January 31, 2025 8:2 9am LUMBAR SPONDYLOLISTHESIS February 10 7:05am LUMBAR SPINE February 13, 2025 8:5 6am Reason for Visit Admit Date Spinal stenosis of lumbar re gion with neurogenic claudication January 11, 2025 1:12pm Spondylolisthesis, lumbar region Februar y 2024 1:12pm Hypertriglyceridemia January 31, 2025 8: 29am Leg swelling January 31, 2025 8:2 9am Metabolic dysfunction-associ ated steatotic liver disease (MASLD) January 31, 2025 8:29am Obesity January 31, 2025 8:2 9am Spinal stenosis of lumbar re gion with neurogenic claudication February 13, 2025 8:56am Spondylolisthesis, lumbar region January 212024 8:56am Chief Complaint Admit Date 1 Y FU July 31, 2025 9:49am Reason for Referral Specialty Diagnoses / Procedures Referred By Contac t Referred To Contact Radha Merino MD [address] [place] [address] Referral ID Status Reason Start Date Expiration Date V isits Requested Visits Authorized [id number] Pending Review 1 1 Specialty Diagnoses / Procedures Referred By Contac t Referred To Contact Gastroenterology Diagnoses Chronic constipation Procedures CONSULT TO GASTROENTEROLOGY OFFICE/OUTPATIENT [facility] 60-74 MINUTES Radha Merino MD [address] [place] [address] Referral ID Status Reason Start Date Expiration Date Visits Requested Visits Authorized [id number] Authorized PCP Requested Referral 12/07/2022 12/07/2023 1 1 Specialty Diagnoses / Procedures Referred By Contac t Referred To Contact CT IMAGING Diagnoses History of nephrolithiasis Procedures CT FLANK WO IVCON CT ABD & PELVIS [place] [address] [place] [address] Ct Imaging Referral ID Status Reason Start Date Expiration Date Visits Requested Visits Authorized [id number] Authorized Auto-Generat ed Referral 03/16/2023 04/14/2024 1 1 Specialty Diagnoses / Procedures Referred By Contac t Referred To Contact Urology Diagnoses History of nephrolithiasis Procedures CONSULT TO UROLOGY OFFICE/OUTPATIENT [facility] 60-[place] [address] [place] [id number] Referral ID Status Reason Start Date Expiration Date Visits Requested Visits Authorized [id number] Authorized PCP Requested Referral 03/25/2023 03/24/2024 1 1 Specialty Diagnoses / Procedures Referred By Contac t Referred To Contact Orthopedics Diagnoses Chronic midline low back pain without sciatica Procedures CONSULT TO ORTHOPAEDICS OFFICE/OUTPATIENT [facility] 60-74 MINUTES Radha Merino MD [address] [place] [address] Referral ID Status Reason Start Date Expiration Date Visits Requested Visits Authorized [id number] Authorized PCP Requested Referral 06/07/2023 06/06/2024 1 1 Specialty Diagnoses / Procedures Referred By Contac t Referred To Contact CT IMAGING Diagnoses History of nephrolithiasis Procedures CT FLANK WO IVCON CT ABD & PELVIS W/[place] [address] [place] [address] Ct Imaging [place] [address] Referral ID Status Reason Start Date Expiration Date V isits Requested Visits Authorized [id number] Closed Auto-Generate d Referral 03/16/2023 04/14/2024 1 1 Specialty Diagnoses / Procedures Referred By Contac t Referred To Contact Urology Diagnoses Adrenal mass, left (HCC) Procedures CONSULT TO UROLOGY OFFICE/OUTPATIENT [facility] 60 MINUTES Charlene Martinez APRN.IGNITION EXPERT [address] [place] [address] Referral ID Status Reason Start Date Expiration Date Visits Requested Visits Authorized [id number] Authorized PCP Requested Referral 05/05/2024 05/05/2025 1 1 Specialty Diagnoses / Procedures Referred By Contac t Referred To Contact CT IMAGING Diagnoses Disorder of adrenal gland (HCC) Procedures CT ADRENAL WO/W IVCON CT ABDOMEN W & W/O CONTRAST Manjeet Massey MD [address] [place] [address] Ct Imaging [place] [address] Referral ID Status Reason Start Date Expiration Date Visits Requested Visits Authorized [id number] New Request Auto-Generat ed Referral 06/22/2024 07/22/2025 1 1 Referral ID Status Reason Start Date Expiration Date V isits Requested Visits Authorized [id number] Closed Auto-Generate d Referral 06/22/2024 07/22/2025 1 1 Summary Purpose Additional Source Comments Goals (unrecognized section and content) Goals may be documented in a n alternate sectionGoals may be documented in an alternate sectionGoals may be documented in an alternate sectionGoals may be documented in an alternate sectionGoals may be documented in an alternate sectionGoals may be documented in an alternate sectionGoals may be documented in an alternate sectionGoals may be documented in an alternate sectionGoals may be documented in an alternate sectionGoals may be documented in an alternate section Source Comments (unrecognize d section and content) In the event this informatio n is protected by the Federal Confidentiality of Alcohol and Drug Abuse Patient Records regulations: The Federal rules restrict any use of the information to criminally investigate or prosecute any alcohol or drug abuse patient.[facility] HospitalIn the event this information is protected by the Federal Confidentiality of Alcohol and Drug Abuse Patient Records regulations: The Federal rules restrict any use of the information to criminally investigate or prosecute any alcohol or drug abuse patient.[facility] HospitalIn the event this information is protected by the Federal Confidentiality of Alcohol and Drug Abuse Patient Records regulations: The Federal rules restrict any use of the information to criminally investigate or prosecute any alcohol or drug abuse patient.[facility] HospitalIn the event this information is protected by the Federal Confidentiality of Alcohol and Drug Abuse Patient Records regulations: The Federal rules restrict any use of the information to criminally investigate or prosecute any alcohol or drug abuse patient.[facility] HospitalIn the event this information is protected by the Federal Confidentiality of Alcohol and Drug Abuse Patient Records regulations: The Federal rules restrict any use of the information to criminally investigate or prosecute any alcohol or drug abuse patient.[facility] HospitalIn the event this information is protected by the Federal Confidentiality of Alcohol and Drug Abuse Patient Records regulations: The Federal rules restrict any use of the information to criminally investigate or prosecute any alcohol or drug abuse patient.[facility] HospitalIn the event this information is protected by the Federal Confidentiality of Alcohol and Drug Abuse Patient Records regulations: The Federal rules restrict any use of the information to criminally investigate or prosecute any alcohol or drug abuse patient.[facility] HospitalIn the event this information is protected by the Federal Confidentiality of Alcohol and Drug Abuse Patient Records regulations: The Federal rules restrict any use of the information to criminally investigate or prosecute any alcohol or drug abuse patient.[facility] HospitalIn the event this information is protected by the Federal Confidentiality of Alcohol and Drug Abuse Patient Records regulations: The Federal rules restrict any use of the information to criminally investigate or prosecute any alcohol or drug abuse patient.[facility] HospitalIn the event this information is protected by the Federal Confidentiality of Alcohol and Drug Abuse Patient Records regulations: The Federal rules restrict any use of the information to criminally investigate or prosecute any alcohol or drug abuse patient.[facility] HospitalIn the event this information is protected by the Federal Confidentiality of Alcohol and Drug Abuse Patient Records regulations: The Federal rules restrict any use of the information to criminally investigate or prosecute any alcohol or drug abuse patient.[facility] HospitalIn the event this information is protected by the Federal Confidentiality of Alcohol and Drug Abuse Patient Records regulations: The Federal rules restrict any use of the information to criminally investigate or prosecute any alcohol or drug abuse patient.[facility] HospitalIn the event this information is protected by the Federal Confidentiality of Alcohol and Drug Abuse Patient Records regulations: The Federal rules restrict any use of the information to criminally investigate or prosecute any alcohol or drug abuse patient.[facility] HospitalIn the event this information is protected by the Federal Confidentiality of Alcohol and Drug Abuse Patient Records regulations: The Federal rules restrict any use of the information to criminally investigate or prosecute any alcohol or drug abuse patient.[facility] HospitalIn the event this information is protected by the Federal Confidentiality of Alcohol and Drug Abuse Patient Records regulations: The Federal rules restrict any use of the information to criminally investigate or prosecute any alcohol or drug abuse patient.[facility] HospitalIn the event this information is protected by the Federal Confidentiality of Alcohol and Drug Abuse Patient Records regulations: The Federal rules restrict any use of the information to criminally investigate or prosecute any alcohol or drug abuse patient.[facility] HospitalIn the event this information is protected by the Federal Confidentiality of Alcohol and Drug Abuse Patient Records regulations: The Federal rules restrict any use of the information to criminally investigate or prosecute any alcohol or drug abuse patient.[facility] HospitalIn the event this information is protected by the Federal Confidentiality of Alcohol and Drug Abuse Patient Records regulations: The Federal rules restrict any use of the information to criminally investigate or prosecute any alcohol or drug abuse patient.[facility] HospitalIn the event this information is protected by the Federal Confidentiality of Alcohol and Drug Abuse Patient Records regulations: The Federal rules restrict any use of the information to criminally investigate or prosecute any alcohol or drug abuse patient.[facility] HospitalIn the event this information is protected by the Federal Confidentiality of Alcohol and Drug Abuse Patient Records regulations: The Federal rules restrict any use of the information to criminally investigate or prosecute any alcohol or drug abuse patient.[facility] HospitalIn the event this information is protected by the Federal Confidentiality of Alcohol and Drug Abuse Patient Records regulations: The Federal rules restrict any use of the information to criminally investigate or prosecute any alcohol or drug abuse patient.[facility] HospitalIn the event this information is protected by the Federal Confidentiality of Alcohol and Drug Abuse Patient Records regulations: The Federal rules restrict any use of the information to criminally investigate or prosecute any alcohol or drug abuse patient.[facility] HospitalIn the event this information is protected by the Federal Confidentiality of Alcohol and Drug Abuse Patient Records regulations: The Federal rules restrict any use of the information to criminally investigate or prosecute any alcohol or drug abuse patient.[facility] HospitalIn the event this information is protected by the Federal Confidentiality of Alcohol and Drug Abuse Patient Records regulations: The Federal rules restrict any use of the information to criminally investigate or prosecute any alcohol or drug abuse patient.[facility] HospitalIn the event this information is protected by the Federal Confidentiality of Alcohol and Drug Abuse Patient Records regulations: The Federal rules restrict any use of the information to criminally investigate or prosecute any alcohol or drug abuse patient.[facility] HospitalIn the event this information is protected by the Federal Confidentiality of Alcohol and Drug Abuse Patient Records regulations: The Federal rules restrict any use of the information to criminally investigate or prosecute any alcohol or drug abuse patient.[facility] HospitalIn the event this information is protected by the Federal Confidentiality of Alcohol and Drug Abuse Patient Records regulations: The Federal rules restrict any use of the information to criminally investigate or prosecute any alcohol or drug abuse patient.[facility] HospitalIn the event this information is protected by the Federal Confidentiality of Alcohol and Drug Abuse Patient Records regulations: The Federal rules restrict any use of the information to criminally investigate or prosecute any alcohol or drug abuse patient.[facility] HospitalIn the event this information is protected by the Federal Confidentiality of Alcohol and Drug Abuse Patient Records regulations: The Federal rules restrict any use of the information to criminally investigate or prosecute any alcohol or drug abuse patient.[facility] HospitalIn the event this information is protected by the Federal Confidentiality of Alcohol and Drug Abuse Patient Records regulations: The Federal rules restrict any use of the information to criminally investigate or prosecute any alcohol or drug abuse patient.[facility] HospitalIn the event this information is protected by the Federal Confidentiality of Alcohol and Drug Abuse Patient Records regulations: The Federal rules restrict any use of the information to criminally investigate or prosecute any alcohol or drug abuse patient.[facility] HospitalIn the event this information is protected by the Federal Confidentiality of Alcohol and Drug Abuse Patient Records regulations: The Federal rules restrict any use of the information to criminally investigate or prosecute any alcohol or drug abuse patient.[facility] HospitalIn the event this information is protected by the Federal Confidentiality of Alcohol and Drug Abuse Patient Records regulations: The Federal rules restrict any use of the information to criminally investigate or prosecute any alcohol or drug abuse patient.[facility] HospitalIn the event this information is protected by the Federal Confidentiality of Alcohol and Drug Abuse Patient Records regulations: The Federal rules restrict any use of the information to criminally investigate or prosecute any alcohol or drug abuse patient.[facility] HospitalIn the event this information is protected by the Federal Confidentiality of Alcohol and Drug Abuse Patient Records regulations: The Federal rules restrict any use of the information to criminally investigate or prosecute any alcohol or drug abuse patient.[facility] HospitalIn the event this information is protected by the Federal Confidentiality of Alcohol and Drug Abuse Patient Records regulations: The Federal rules restrict any use of the information to criminally investigate or prosecute any alcohol or drug abuse patient.[facility] HospitalIn the event this information is protected by the Federal Confidentiality of Alcohol and Drug Abuse Patient Records regulations: The Federal rules restrict any use of the information to criminally investigate or prosecute any alcohol or drug abuse patient.[facility] HospitalIn the event this information is protected by the Federal Confidentiality of Alcohol and Drug Abuse Patient Records regulations: The Federal rules restrict any use of the information to criminally investigate or prosecute any alcohol or drug abuse patient.[facility] HospitalIn the event this information is protected by the Federal Confidentiality of Alcohol and Drug Abuse Patient Records regulations: The Federal rules restrict any use of the information to criminally investigate or prosecute any alcohol or drug abuse patient.[facility] HospitalIn the event this information is protected by the Federal Confidentiality of Alcohol and Drug Abuse Patient Records regulations: The Federal rules restrict any use of the information to criminally investigate or prosecute any alcohol or drug abuse patient.[facility] HospitalIn the event this information is protected by the Federal Confidentiality of Alcohol and Drug Abuse Patient Records regulations: The Federal rules restrict any use of the information to criminally investigate or prosecute any alcohol or drug abuse patient.[facility] HospitalIn the event this information is protected by the Federal Confidentiality of Alcohol and Drug Abuse Patient Records regulations: The Federal rules restrict any use of the information to criminally investigate or prosecute any alcohol or drug abuse patient.[facility] HospitalIn the event this information is protected by the Federal Confidentiality of Alcohol and Drug Abuse Patient Records regulations: The Federal rules restrict any use of the information to criminally investigate or prosecute any alcohol or drug abuse patient.[facility] HospitalIn the event this information is protected by the Federal Confidentiality of Alcohol and Drug Abuse Patient Records regulations: The Federal rules restrict any use of the information to criminally investigate or prosecute any alcohol or drug abuse patient.[facility] HospitalIn the event this information is protected by the Federal Confidentiality of Alcohol and Drug Abuse Patient Records regulations: The Federal rules restrict any use of the information to criminally investigate or prosecute any alcohol or drug abuse patient.[facility] HospitalIn the event this information is protected by the Federal Confidentiality of Alcohol and Drug Abuse Patient Records regulations: The Federal rules restrict any use of the information to criminally investigate or prosecute any alcohol or drug abuse patient.[facility] HospitalIn the event this information is protected by the Federal Confidentiality of Alcohol and Drug Abuse Patient Records regulations: The Federal rules restrict any use of the information to criminally investigate or prosecute any alcohol or drug abuse patient.[facility] HospitalIn the event this information is protected by the Federal Confidentiality of Alcohol and Drug Abuse Patient Records regulations: The Federal rules restrict any use of the information to criminally investigate or prosecute any alcohol or drug abuse patient.[facility] HospitalIn the event this information is protected by the Federal Confidentiality of Alcohol and Drug Abuse Patient Records regulations: The Federal rules restrict any use of the information to criminally investigate or prosecute any alcohol or drug abuse patient.[facility] HospitalIn the event this information is protected by the Federal Confidentiality of Alcohol and Drug Abuse Patient Records regulations: The Federal rules restrict any use of the information to criminally investigate or prosecute any alcohol or drug abuse patient.[facility] HospitalIn the event this information is protected by the Federal Confidentiality of Alcohol and Drug Abuse Patient Records regulations: The Federal rules restrict any use of the information to criminally investigate or prosecute any alcohol or drug abuse patient.[facility] HospitalIn the event this information is protected by the Federal Confidentiality of Alcohol and Drug Abuse Patient Records regulations: The Federal rules restrict any use of the information to criminally investigate or prosecute any alcohol or drug abuse patient.[facility] HospitalIn the event this information is protected by the Federal Confidentiality of Alcohol and Drug Abuse Patient Records regulations: The Federal rules restrict any use of the information to criminally investigate or prosecute any alcohol or drug abuse patient.[facility] HospitalIn the event this information is protected by the Federal Confidentiality of Alcohol and Drug Abuse Patient Records regulations: The Federal rules restrict any use of the information to criminally investigate or prosecute any alcohol or drug abuse patient.[facility] HospitalIn the event this information is protected by the Federal Confidentiality of Alcohol and Drug Abuse Patient Records regulations: The Federal rules restrict any use of the information to criminally investigate or prosecute any alcohol or drug abuse patient.[facility] HospitalIn the event this information is protected by the Federal Confidentiality of Alcohol and Drug Abuse Patient Records regulations: The Federal rules restrict any use of the information to criminally investigate or prosecute any alcohol or drug abuse patient.[facility] Reason for Visit (unrecogniz ed section and content) Reason Comments Kidney Problem Specialty Diagnoses / Procedures Referred By Ashanti sanchez Referred To Contact Urology Diagnoses History of nephrolithiasis Procedures CONSULT TO UROLOGY OFFICE/OUTPATIENT [facility] 60-[place] [address] [place] [address] Referral ID Status Reason Start Date Expiration Date V isits Requested Visits Authorized [id number] Closed PCP Requested Referral 03/25/2023 03/24/2024 1 [...] Kidney stones Procedures CONSULT TO UROLOGY OFFICE/OUTPATIENT [facility] 60-74 MINUTES Radha Merino MD [address] [place] [address] Referral ID Status Reason Start Date Expiration Date V isits Requested Visits Authorized [id number] Closed PCP Requested Referral 03/10/2023 03/09/2024 1 1 Reason Comments Consult Reason Comments Medication Question Reason Comments Follow Up Cysto /stent removal Reason Comments Medicare Wellness Exam Reason Comments Radiology CT Specialty Diagnoses / Procedures Referred By Contac t Referred To Contact CT IMAGING Diagnoses History of nephrolithiasis Procedures CT FLANK WO IVCON CT ABD & PEL[place] [address] [place] [address] [facility] [place] [address] Referral ID Status Reason Start Date Expiration Date V isits Requested Visits Authorized [id number] Closed Auto-Generate d Referral 03/16/2023 04/14/2024 1 1 Reason Comments Consult FACE SHEET Reason Comments Thyroid Problem Specialty Diagnoses / Procedures Referred By Contac t Referred To Contact Diagnoses Phosphate calculi Hyperparathyroid (HCC) Procedures CONSULT TO ENDOCRINE SURGERY OFFICE/OUTPATIENT [facility] 60-74 MINUTES Charlene Martinez APRN.MAKENNA [address] [place] [address] Referral ID Status Reason Start Date Expiration Date V isits Requested Visits Authorized [id number] Closed PCP Requested Referral 10/01/2023 09/30/2024 1 1 Reason Comments Radiology [place] Specialty Diagnoses / Procedures Referred By Contac t Referred To Contact MOLECULAR & FUNCTIONAL IMAGING Diagnoses Hyperparathyroidism (HCC) Procedures NM PARATHYROID W SPECT/CT PARATHYROID IMAGING W/TOMOGRAPHIC SPECT & CT Eleonora Hillman MD [address] [place] [id number] Molecular & Functional Imaging [address] [place] [address] Referral ID Status Reason Start Date Expiration Date V isits Requested Visits Authorized [id number] Closed Auto-Generate d Referral 10/11/2023 11/09/2024 1 1 Reason Comments Post Op Reason Comments Post-Op Visit Reason Onset Date Comments Transition Of Care 02/14/2024 Reason Onset Date Comments Med Specialist Chronic Care 03/02/2024 Reason Comments pre surgical clearance Reason Comments Kidney Stones Reason Comments Consult Specialty Diagnoses / Procedures Referred By Contac t Referred To Contact CT IMAGING Diagnoses Disorder of adrenal gland (HCC) Procedures CT ADRENAL WO/W IVCON CT ABDOMEN W & W/O CONTRAST Manjeet Massey MD [address] [place] [id number] [facility] [place] [address] Referral ID Status Reason Start Date Expiration Date V isits Requested Visits Authorized [id number] Closed Auto-Generate d Referral 06/22/2024 07/22/2025 1 1 Reason Comments Medicare Wellness Exam Reason Comments Results Parathyroid labs Reason Comments Pays out of pocket for Sildenafil Care Teams (unrecognized sec tion and content) Coffee Bar Attendant Relationship Specialty Start Date End Date Pcp, No PCP - General 06/06/22 12/22/22 Coffee Bar Attendant Relationship Specialty Start Date End Date Radha Merino MD [address] [place], [place] [id number] [phone] PCP - General Family Practice 06/24/22 Coffee Bar Attendant Relationship Specialty Start Date End Date Radha Merino MD [address] [place], [place] [id number] [phone] PCP - General Family Practice 06/24/22 Coffee Bar Attendant Relationship Specialty Start Date End Date Radha Merino MD [address] [place], [place] [id number] [phone] PCP - General Family Medicine 06/24/22 Coffee Bar Attendant Relationship Specialty Start Date End Date Radha Merino MD [address] [place], [place] 337684 [phone] PCP - General Family Medicine 06/24/22 Team Status: Active Member Role Status Dates Radha Angelique OLS Family Provider Active Dr. Radha Merino MD Primary Care Provider Active Team Status: Inactive Member Role Status Dates Dr. Radha Merino MD Primary Care Provider, Referrin g Provider Active Dr. Portillo Buck DO Attending Provider Active Team Status: Inactive Member Role Status Dates Dr. Radha Merino MD Primary Care Provider Active Dr. Portillo Buck DO Attending Provider, Referring Provider Active Team Status: Active Member Role Status Dates Dr. Radha Merino MD Primary Care Provider Active Dr. Portillo Buck DO Attending Provider, Referring Provider Active Team Status: Inactive Member Role Status Dates Dr. Radha Merino MD Primary Care Provider Active Dr. Portillo Buck DO Attending Provider Active Coffee Bar Attendant Relationship Specialty Start Date End Date Radha Merino MD [address] [place] [address] PCP - General Family Medicine 06/24/22 Coffee Bar Attendant Relationship Specialty Start Date End Date Radha Merino MD [address] [place] [address] PCP - General Family Medicine 06/24/22 Coffee Bar Attendant Relationship Specialty Start Date End Date Radha Merino MD [address] [place] [address] PCP - General Family Medicine 06/24/22 Coffee Bar Attendant Relationship Specialty Start Date End Date Radha Merino MD [address] [place] [address] PCP - General Family Medicine 06/24/22 Coffee Bar Attendant Relationship Specialty Start Date End Date Radha Merino MD [address] [place] [address] PCP - General Family Medicine 06/24/22 Coffee Bar Attendant Relationship Specialty Start Date End Date Radha Merino MD [address] [place] [address] PCP - General Family Medicine 06/24/22 Coffee Bar Attendant Relationship Specialty Start Date End Date Radha Merino MD [address] [place] [address] PCP - General Family Medicine 06/24/22 Coffee Bar Attendant Relationship Specialty Start Date End Date Radha Merino MD [address] [place] [address] PCP - General Family Medicine 06/24/22 Coffee Bar Attendant Relationship Specialty Start Date End Date Radha Merino MD [address] [place] [address] PCP - General Family Medicine 06/24/22 Coffee Bar Attendant Relationship Specialty Start Date End Date Radha Merino MD [address] [place] [address] PCP - General Family Medicine 06/24/22 Coffee Bar Attendant Relationship Specialty Start Date End Date Radha Merino MD [address] [place] [address] PCP - General Family Medicine 06/24/22 Coffee Bar Attendant Relationship Specialty Start Date End Date Radha Merino MD [address] [place] [address] PCP - General Family Medicine 06/24/22 Coffee Bar Attendant Relationship Specialty Start Date End Date Radha Merino MD [address] [place] [address] PCP - General Family Medicine 06/24/22 Motel Front Desk Clerk, [facility] [address] [facility], [address] [place], [place] [address] Dermatology 06/08/23 Portillo Buck DO [address] [place], [place] [id number] Gastroenterology 06/08/23 Yumiko Hernandez MD [address] [place], [place] [id number] Urology 06/08/23 Patrick Zuniga [address] [place] [address] Cardiology 06/08/23 Coffee Bar Attendant Relationship Specialty Start Date End Date Radha Merino MD [address] [place], [place] [id number] PCP - General Family Medicine 06/24/22 Coffee Bar Attendant Relationship Specialty Start Date End Date Radha Merino MD [address] [place] [address] PCP - General Family Medicine 06/24/22 Motel Front Desk Clerk, [address], [address] [place] [address] Dermatology 06/08/23 Portillo Buck DO [address] [place], [place] [id number] Gastroenterology 06/08/23 Yumiko Hernandez MD [address] [place], [place] [id number] Urology 06/08/23 Patrick Zuniga MD [address] [place] [address] Cardiology 06/08/23 Coffee Bar Attendant Relationship Specialty Start Date End Date Radha Merino MD [address] [place] [address] PCP - General Family Medicine 06/24/22 Motel Front Desk Clerk, [address], [address] [place] [address] Dermatology 06/08/23 Portillo Buck DO [address] [place] [address] Gastroenterology 06/08/23 Yumiko Hernandez MD [address] [place] [address] Urology 06/08/23 Patrick Zuniga MD [address] [place] [address] Cardiology 06/08/23 Coffee Bar Attendant Relationship Specialty Start Date End Date Radha Merino MD [address] [place] [address] PCP - General Family Medicine 06/24/22 Motel Front Desk Clerk, [facility] [address], [address] [place] [address] Dermatology 06/08/23 Portillo Buck DO [address] [place], [place] [id number] Gastroenterology 06/08/23 Yumiko Hernandez MD [address] [place] [place], [place] [id number] Urology 06/08/23 Patrick Zuniga MD [address] [place], [place] [address] Cardiology 06/08/23 Coffee Bar Attendant Relationship Specialty Start Date End Date Radha Merino MD [address] [place], [place] [id number] PCP - General Family Medicine 06/24/22 Motel Front Desk Clerk, [address], [address] [place], [place] [address] Dermatology 06/08/23 Portillo Buck DO [address] [place] [address] Gastroenterology 06/08/23 Yumiko Hernandez MD [address] [place] [address] Urology 06/08/23 Patrick Zuniga MD [address] [place] [address] Cardiology 06/08/23 Coffee Bar Attendant Relationship Specialty Start Date End Date Radha Merino MD [address] [place] [address] PCP - General Family Medicine 06/24/22 Motel Front Desk Clerk, [address], [address] [place] [address] Dermatology 06/08/23 Portillo Buck DO [address] [place], [place] [address] Gastroenterology 06/08/23 Yumiko Hernandez MD [address] [place] [place], [place] [id number] Urology 06/08/23 Patrick Zuniga MD [address] [place] [address] Cardiology 06/08/23 Coffee Bar Attendant Relationship Specialty Start Date End Date Radha Merino MD [address] [place], [place] 276456 PCP - General Family Medicine 06/24/22 Motel Front Desk Clerk, [address], [address] [place], [place] [address] Dermatology 06/08/23 Portillo Buck DO [address] [place] [address] Gastroenterology 06/08/23 Yumiko Hernandez MD [address] [place] [address] Urology 06/08/23 Patrick Zuniga MD [address] [place] [address] Cardiology 06/08/23 Coffee Bar Attendant Relationship Specialty Start Date End Date Radha Merino MD [address] [place], [place] 533206 PCP - General Family Medicine 06/24/22 Motel Front Desk Clerk, [facility] [address] [facility], [address] [place] [address] Dermatology 06/08/23 Portillo Buck DO [address] [facility] [address] [place], [place] [address] Gastroenterology 06/08/23 Yumiko Hernandez MD [address] [place] [address] Urology 06/08/23 Patrick Zuniga MD [address] [facility] [address] [place] [address] Cardiology 06/08/23 Team Status: Inactive Member Role Status Dates Dr. Radha Merino MD Primary Care Provider Active Dr. Faisal Keenan MD Attending Provider, Referring P park Active Team Status: Active Member Role Status Dates Dr. Radha Merino MD Primary Care Provider Active Dr. Shayne Elder DO Emergency Provider Active Dr. Masha Dominguez MD Admit Provider, Attending Prov ider Active Coffee Bar Attendant Relationship Specialty Start Date End Date Radha Merino MD [address] [place], [place] 374776 PCP - General Family Medicine 06/24/22 Motel Front Desk Clerk, [facility] [address] [facility], [address] [place] [address] Dermatology 06/08/23 Portillo Buck DO [address] [facility] [address] [place], [place] [address] Gastroenterology 06/08/23 Yumiko Hernandez MD [address] [place] [address] Urology 06/08/23 Patrick Zuniga MD [address] [facility] [address] [place] [address] Cardiology 06/08/23 Team Status: Active Member Role Status Dates Dr. Radha Merino MD Primary Care Provider Active Dr. Shayne Elder DO Emergency Provider Active Dr. Masha Dominguez MD Admit Provider, Other Provider Active Dr. Portillo Buck DO Attending Provider Active Team Status: Active Member Role Status Dates Dr. Radha Merino MD Primary Care Provider Active Dr. Shayne Elder DO Emergency Provider Active Dr. Masha Dominguez MD Admit Provider, Attending Provider, Other Provider Active Team Status: Active Member Role Status Dates Dr. Radha Merino MD Primary Care Provider Active Dr. Shayne Elder DO Emergency Provider Active Dr. Masha Dominguez MD Admit Provider, Other Provider Active Dr. Chelle Alcala MD Attending Provider Active Team Status: Active Member Role Status Dates Dr. Radha Merino MD Primary Care Provider Active Dr. Portillo Buck DO Attending Provider Active Team Status: Inactive Member Role Status Dates Dr. Radha Merino MD Primary Care Provider Active Dr. Shayne Elder DO Emergency Provider Active Dr. Masha Dominguez MD Admit Provider, Attending Prov ider Active Coffee Bar Attendant Relationship Specialty Start Date End Date Radha Merino MD [address] [place] [address] PCP - General Family Medicine 06/24/22 Motel Front Desk Clerk, [address], [address] [place], [place] [address] Dermatology 06/08/23 Portillo Buck DO [address] [facility] [address] [place], [place] [id number] Gastroenterology 06/08/23 Yumiko Hernandez MD [address] [place] [address] Urology 06/08/23 Patrick Zuniga MD [address] [id number] Cardiology 06/08/23 Kika Dietrich, metal lather Legal Stenographer 02/14/24 Coffee Bar Attendant Relationship Specialty Start Date End Date Radha Merino MD [facility] [place] [address] PCP - General Family Medicine 06/24/22 Motel Front Desk Clerk, [address], [address] [place] [address] Dermatology 06/08/23 Portillo Buck DO [address] [id number] Gastroenterology 06/08/23 Yumiko Hernandez MD [address] [place], [place] 2655[address] Urology 06/08/23 Patrick Zuniga MD [address] [facility] [address] [place] [address] Cardiology 06/08/23 Kika Dietrich, metal lather Legal Stenographer 02/14/24 03/01/24 Coffee Bar Attendant Relationship Specialty Start Date End Date Radha Merino MD [address] [place] [address] PCP - General Family Medicine 06/24/22 Motel Front Desk Clerk, [address], [address] [place], [place] [id number] Dermatology 06/08/23 Portillo Buck DO [address] [facility] [address] [place], [place] [id number] Gastroenterology 06/08/23 Yumiko Hernandez MD [address] [place] [address] Urology 06/08/23 Patrick Zuniga MD [address] [facility] [address] [place], [place] [id number] Cardiology 06/08/23 Team Status: Inactive Member Role Status Dates Dr. Radha Merino MD Primary Care Provider, Referrin g Provider Active Dr. Radha Diaz MD Attending Provider Active Team Status: Inactive Member Role Status Dates Dr. Radha Merino MD Referring Provider Active Dr. Faisal Keenan MD Attending Provider Active Team Status: Active Member Role Status Dates Dr. Radha Merino MD Primary Care Provider Active Dr. Shayne Elder DO Emergency Provider Active Dr. Masha Dominguez MD Admit Provider, Referring Provider, Other Provider Active Dr. Portillo Buck DO Attending Provider Active Team Status: Active Member Role Status Dates Dr. Radha Merino MD Primary Care Provider Active Dr. Shayne Elder DO Emergency Provider Active Dr. Masha Dominguez MD Admit Provider, Attending Provider, Other Provider Active Dr. Chelle Alcala MD Active Team Status: Active Member Role Status Dates Dr. Radha Merino MD Primary Care Provider Active Dr. Portillo Buck DO Attending Provider Active Dr. Masha Dominguez MD Referring Provider Active Coffee Bar Attendant Relationship Specialty Start Date End Date Radha Merino MD [address] [place], [place] 388776 PCP - General Family Medicine 06/24/22 Motel Front Desk Clerk, [facility] [address] [facility], [address] [place] [address] Dermatology 06/08/23 Portillo Buck DO [address] [place], [place] [address] Gastroenterology 06/08/23 Yumiko Hernandez MD [address] [place] [address] Urology 06/08/23 Patrick Zuniga MD [address] [place] [address] Cardiology 06/08/23 Coffee Bar Attendant Relationship Specialty Start Date End Date Radha Merino MD [address] [place] [address] PCP - General Family Medicine 06/24/22 Motel Front Desk Clerk, [facility] [address] [facility], [address] [place] [address] Dermatology 06/08/23 Portillo Buck DO [address] [place], [place] [address] Gastroenterology 06/08/23 Yumiko Hernandez MD [address] [place], [place] 6504[address] Urology 06/08/23 Patrick Zuniga MD [address] [place] [address] Cardiology 06/08/23 Coffee Bar Attendant Relationship Specialty Start Date End Date Radha Merino MD [address] [place], [place] [id number] PCP - General Family Medicine 06/24/22 Motel Front Desk Clerk, [address], [address] [place] [address] Dermatology 06/08/23 Portillo Buck DO [address] [place] [address] Gastroenterology 06/08/23 Yumiko Hernandez MD [address] [place] [place], [place] [address]45[address] Urology 06/08/23 Patrick Zuniga MD [address] [place] [address] Cardiology 06/08/23 Coffee Bar Attendant Relationship Specialty Start Date End Date Radha Merino MD [address] [place] [address] PCP - General Family Medicine 06/24/22 Motel Front Desk Clerk, [address], [address] [place] [address] Dermatology 06/08/23 Portillo Buck DO [address] [place], [place] [address] Gastroenterology 06/08/23 Yumiko Hernandez MD [address] [place], [place] [id number] Urology 06/08/23 Patrick Zuniga MD [address] [place] [address] Cardiology 06/08/23 Coffee Bar Attendant Relationship Specialty Start Date End Date Radha Merino MD [address] [place], [place] 9945[address] PCP - General Family Medicine 06/24/22 Motel Front Desk Clerk, [address], [address] [place], [place] [address] Dermatology 06/08/23 Portillo Buck DO [address] [place] [address] Gastroenterology 06/08/23 Yumiko Hernandez MD [address] [place] [address] Urology 06/08/23 Patrick Zuniga MD [address] [place] [address] Cardiology 06/08/23 Coffee Bar Attendant Relationship Specialty Start Date End Date Radha Merino MD [address] [place], [place] 2599[address] PCP - General Family Medicine 06/24/22 Motel Front Desk Clerk, [address], [address] [place] [address] Dermatology 06/08/23 Portillo Buck DO [address] [place], [place] [address] Gastroenterology 06/08/23 Yumiko Hernandez MD [address] [place] [address] Urology 06/08/23 Patrick Zuniga MD [address] [place] [address] Cardiology 06/08/23 Coffee Bar Attendant Relationship Specialty Start Date End Date Radha Merino MD [address] [place], [place] 227[address] PCP - General Family Medicine 06/24/22 Motel Front Desk Clerk, [address], [address] [place] [address] Dermatology 06/08/23 Portillo Buck DO [address] [place], [place] [id number] Gastroenterology 06/08/23 Yumiko Hernandez MD [address] [place], [place] 3769[address] Urology 06/08/23 Patrick Zuniga MD [address] [address] [place] [address] Cardiology 06/08/23 Coffee Bar Attendant Relationship Specialty Start Date End Date Radha Merino MD [address] [place] [address] PCP - General Family Medicine 06/24/22 Motel Front Desk Clerk, [address], [address] [place], [place] [address] Dermatology 06/08/23 Portillo Buck DO [address] [place] [address] Gastroenterology 06/08/23 Yumiko Hernandez MD [address] [place] [address] Urology 06/08/23 Patrick Zuniga MD [address] [place] [address] Cardiology 06/08/23 Coffee Bar Attendant Relationship Specialty Start Date End Date Radha Merino MD [address] [place] [address] PCP - General Family Medicine 06/24/22 Motel Front Desk Clerk, [facility] [address] [facility], [address] [place] [address] Dermatology 06/08/23 Portillo Buck DO [address] [place] [address] Gastroenterology 06/08/23 Yumiko Hernandez MD [address] [place], [place] [id number] Urology 06/08/23 Patrick Zuniga MD [address] [address] Cardiology 06/08/23 Coffee Bar Attendant Relationship Specialty Start Date End Date Radha Merino MD [address] [place], [place] [phone] PCP - General Family Medicine 06/24/22 Motel Front Desk Clerk, [address], [address] [place] [address] Dermatology 06/08/23 Portillo Buck DO [address] [address] Gastroenterology 06/08/23 Yumiko Hernandez MD [address] [place], [place] [id number] Urology 06/08/23 Patrick Zuniga MD [address] [id number] Cardiology 06/08/23 Coffee Bar Attendant Relationship Specialty Start Date End Date Radha Merino MD [address] [place], [place] [phone] PCP - General Family Medicine 06/24/22 Motel Front Desk Clerk, [address], [address] [place] [address] Dermatology 06/08/23 Portillo Buck DO [address] [place], [place] [address] Gastroenterology 06/08/23 Yumiko Hernandez MD [address] [place], [place] [id number] Urology 06/08/23 Patrick Zuniga MD [address] [address] Cardiology 06/08/23 Coffee Bar Attendant Relationship Specialty Start Date End Date Radha Merino MD [address] [place], [place] [phone] PCP - General Family Medicine 06/24/22 Motel Front Desk Clerk, [address], [address] [place] [address] Dermatology 06/08/23 Portillo Buck DO [address] [place] [address] Gastroenterology 06/08/23 Yumiko Hernandez MD [address] [place], [place] [id number] Urology 06/08/23 Patrick Zuniga MD [address] [facility] [address] [place], [place] [id number] Cardiology 06/08/23 Coffee Bar Attendant Relationship Specialty Start Date End Date Radha Merino MD [address] [place], [place] [phone] PCP - General Family Medicine 06/24/22 Motel Front Desk Clerk, [address], [address] [place], [place] [address] Dermatology 06/08/23 Portillo Buck DO [address] [facility] [address] [place], [place] [id number] Gastroenterology 06/08/23 Yumiko Hernandez MD [address] [place] [place], [place] [id number] Urology 06/08/23 Patrick Zuniga MD [address] [place] [address] Cardiology 06/08/23 Team Status: Active Member Role Status Dates Dr. Radha Merino MD Primary Care Provider Active Team Status: Inactive Member Role Status Dates Dr. Radha Merino MD Primary Care Provider Active Start: January 11, 2025 End: January 11, 2025 Dr. Radha Merino MD Referring Provider Active Start: January 11, 2025 End: January 11, 2025 Dr. Luis Nguyễn MD Attending Provider Active Start: January 11, 2025 End: January 11, 2025 Team Status: Inactive Member Role Status Dates Dr. Radha Merino MD Primary Care Provider Active Start: January 11, 2025 End: January 11, 2025 Dr. Patrick Zuniga MD Attending Provider Active S tart: January 11, 2025 End: January 11, 2025 Team Status: Inactive Member Role Status Dates Dr. Radha Merino MD Primary Care Provider Active Start: January 31, 2025 End: January 31, 2025 Dr. Radha Merino MD Referring Provider Active Start: January 31, 2025 End: January 31, 2025 Dr. Faisal Keenan MD Attending Provider Active Start: January 31, 2025 End: January 31, 2025 Team Status: Inactive Member Role Status Dates Dr. Radha Merino MD Primary Care Provider Active Start: February 10, 2025 End: February 10, 2025 Dr. Luis Nguyễn MD Attending Provider Active Start: February 10, 2025 End: February 10, 2025 Dr. Luis Nguyễn MD Referring Provider Active Start: February 10, 2025 End: February 10, 2025 Team Status: Inactive Member Role Status Dates Dr. Radha Merino MD Primary Care Provider Active Start: February 13, 2025 End: February 13, 2025 Dr. Radha Merino MD Referring Provider Active Start: February 13, 2025 End: February 13, 2025 Dr. Luis Nguyễn MD Attending Provider Active Start: February 13, 2025 End: February 13, 2025 Team Status: Active Member Role/Relationship Status Dates Dr. Radha Merino MD Primary Care Provider Active Team Status: Inactive Member Role/Relationship Status Dates Dr. Radha Merino MD Primary Care Provider Active Start: July 31, 2025 End: July 31, 2025 Dr. Radha Merino MD Referring Provider Active Start: July 31, 2025 End: July 31, 2025 Dr. Radha Diaz MD Attending Provider Active Start: July 31, 2025 End: July 31, 2025 Coffee Bar Attendant Relationship Specialty Start Date End Date Radha Merino MD [address] [place] [address] PCP - General Family Medicine 06/24/22 Motel Front Desk Clerk, [facility] [address] [facility], [address] [place] [address] Dermatology 06/08/23 Portillo Buck DO [address] [address] Gastroenterology 06/08/23 Yumiko Hernandez MD [address] [place] [address] Urology 06/08/23 Patrick Zuniga MD [address] [place] [address] Cardiology 06/08/23 (unrecognized sect ion and content) No Status Records FoundNo Status Records FoundNo Status Records FoundNo Status Records Found INFORMATION SOURCE (unrecogn ized section and content) DATE CREATED AUTHOR 01/22/2024 [facility] DATE CREATED AUTHOR AUTHOR'S ORGANIZ ATION 08/08/2025 [facility] DATE CREATED AUTHOR AUTHOR'S ORGANIZ ATION 08/24/2025 [facility] DATE CREATED AUTHOR AUTHOR'S ORGANIZ ATION 10/01/2025 [facility] FOR RECORDS PERTAINING TO PATIENTS WHO ARE [...] BE BASED ON THE PRIMARY CLINICAL RECORDS. [employer] provides no warranty or guarantee of the accuracy or completeness of information in this document.
== END | disposition home or self-care (01) ==
LOC: US 07:14
PROVIDERS: PCP Family Medicine; Referring Provider Internal Medicine; Visit Provider Internal Medicine
DX: E11.9 Type 2 diabetes mellitus without complications (principal); E78.1 Pure hyperglyceridemia; K76.0 Fatty (change of) liver, not elsewhere classified
CPT/HCPCS: 76705; 76981